=== PATIENT | female | born 1945 | race Caucasian/White ===

== ENCOUNTER → 2017-10-01 08:08 | Outpatient (CLI) | payer MEDICARE, SELFPAY ==
[2017-10-01 09:32] LABS: Absolute Lymphocyte Count 1.26 X10^3/ul (0.83-4.51); Absolute Neutrophil Count 3.3 X10^3/uL (2.0-7.7); Basophil# 0.05 X10^3/uL; Eosinophil# 0.18 X10^3/uL; Eosinophils% 3.5 % (0-5); Hematocrit 40.5 % (37-47); Lymphocyte # 1.26 X10^3/ul (4.0); Lymphocyte % 24.5 % (19-41); Mean Corp Hgb Conc 34.6 g/gl (32-36); Mean Corpuscular Hgb 32.4 pg (27.0-32.0); Mean Corpuscular Volume 93.8 fL (81-99); Mean Platelet Vol. 11.8 fl (6.2-12.0); Monocyte# 0.35 X10^3/uL; Monocyte% 6.8 % (0-10); Neutrophil % 64.2 % (47-70); Platelet Count 151 K/mm3 (150-450); RBC Distribution Width CV 12.7 % (11.6-14.6); RBC Distribution Width SD 42.8 fl (35.1-43.9); Red Blood Count 4.32 M/mm3 (4.2-5.4); White Blood Count 5.1 K/mm3 (4.4-11.0)
[2017-10-01 09:35] LABS: POSITIVE COUNT NO; POSITIVE DIFFERENTIAL NO; POSITIVE MORPHOLOGY NO
[2017-10-01 09:52] LABS: Hemoglobin A1c 9.1 % (4.2-6.3); Microalbumin,Random Urine 42.6 mg/L (NO RANGE EST.); Microalbumin:Creatinine Ratio 48.4 mg/g CRE (<30 mg/g CRE)
[2017-10-01 10:09] LABS: Cholesterol 166 mg/dL (200); High Density Lipoprotein 32 mg/dL; Thyroid Stim Hormone (TSH) 5.55 uIU/mL (0.358-3.74); Triglycerides 123 mg/dL; Very Low Density Lipoprotein 25 mg/dL (5-40)
== END ==
PROVIDERS: Family Provider Family Medicine; PCP Family Medicine; Visit Provider Family Medicine
DX: E11.65 Type 2 diabetes mellitus with hyperglycemia (principal); I10 Essential (primary) hypertension; K21.9 Gastro-esophageal reflux disease without esophagitis
CPT/HCPCS: 36415; 80061; 82043; 82570; 83036; 84443; 85025

== ENCOUNTER → 2017-11-12 10:34 | Outpatient (CLI) | payer MEDICARE, SELFPAY ==
[2017-11-12 13:02] LABS: Anion Gap 7 (5-15); BUN 15 mg/dL (7-18); Calcium,Total 8.9 mg/dL (8.5-10.1); Chloride 107 mmol/L (98-107); Creatinine, Serum 0.94 mg/dL (0.55-1.02); EST Glomerular Filtration Rate 62 mL/min (>60); Est Glom Filt Rate - Afr Amer 75 mL/min (>60); Free T3 2.7 pg/mL (2.18-3.98); Glucose 224 mg/dL (74-106); Potassium 4.2 mmol/L (3.5-5.1); Sodium Level 139 mmol/L (136-145); T4 Free Direct 0.99 ng/dL (0.76-1.46); Thyroid Stim Hormone (TSH) 3.36 uIU/mL (0.358-3.74)
[2017-11-13 18:51] LABS: Thyroid Peroxidase AB 16 IU/mL (0-34)
[2017-11-13 18:58] LABS: Thyroglobulin Antibody < 1.0 IU/mL (0.0-0.9)
== END ==
PROVIDERS: Family Provider Family Medicine; PCP Family Medicine; Visit Provider Family Medicine
DX: E03.9 Hypothyroidism, unspecified (principal); I10 Essential (primary) hypertension
CPT/HCPCS: 36415; 80048; 84439; 84443; 84481; 86376; 86800

== ENCOUNTER → 2018-07-01 | Outpatient (CLI) | payer MEDICARE, SELFPAY | END | disposition home or self-care (01) | LOC: BFHLAB 15:52 | PROVIDERS: Family Provider Family Medicine; PCP Family Medicine; Visit Provider Family Medicine | DX: N95.0 Postmenopausal bleeding (principal); Z12.4 Encounter for screening for malignant neoplasm of cervix | CPT/HCPCS: 88175; G0145 ==

== ENCOUNTER → 2018-07-12 | Outpatient (CLI) | payer MEDICARE, SELFPAY ==
--- NOTE | 2018-07-12 12:07 | US_ITS ---
STUDY: ULTRASOUND OF THE FEMALE PELVIS - COMPLETE REASON FOR EXAM: Female, 73 years old. PMB. LMP: Postmenopausal. TECHNIQUE: Transabdominal and transvaginal. TECHNICAL QUALITY: Adequate. COMPARISON: None. FINDINGS: The uterus is anteverted and is in a midline position. The uterus measures 6.0 x 4.6 x 2.9 cm. Normal uterine cervix. The endometrium measures 10.0 mm in thickness, and is . There is no demonstrated endometrial mass. There is a small fibroid measuring 0.8 x 0.8 x 0.7 cm. I.U.D. - The patient does not have an I.U.D. The right ovary is not visualized. The left ovary is visualized. The left ovary measures 2.2 x 2.8 x 1.4 cm. There is no left ovarian cyst or ovarian mass. There is no visualized left adnexal mass or complex lesion. There is normal arterial and normal venous vascularity. There is no fluid in the cul-de-sac. US/Transvaginal Non- IMPRESSION: 1. Mild thickening of the endometrial stripe measuring 10.0 mm. This is at least endometrial hyperplasia. 2. Small uterine fibroid measuring 0.8 x 0.8 x 0.7 cm. 3. Nonvisualization of the right ovary due to bowel gas. 4. Normal ultrasound of the left ovary. Electronically Signed: Xander Khan MD at 13:41 EDT , Service support ,
--- NOTE | 2018-07-12 12:07 | US_ITS ---
STUDY: ULTRASOUND OF THE FEMALE PELVIS - COMPLETE REASON FOR EXAM: Female, 73 years old. PMB. LMP: Postmenopausal. TECHNIQUE: Transabdominal and transvaginal. TECHNICAL QUALITY: Adequate. COMPARISON: None. FINDINGS: The uterus is anteverted and is in a midline position. The uterus measures 6.0 x 4.6 x 2.9 cm. Normal uterine cervix. The endometrium measures 10.0 mm in thickness, and is . There is no demonstrated endometrial mass. There is a small fibroid measuring 0.8 x 0.8 x 0.7 cm. I.U.D. - The patient does not have an I.U.D. The right ovary is not visualized. The left ovary is visualized. The left ovary measures 2.2 x 2.8 x 1.4 cm. There is no left ovarian cyst or ovarian mass. There is no visualized left adnexal mass or complex lesion. There is normal arterial and normal venous vascularity. There is no fluid in the cul-de-sac. US/Pelvic (Non ) IMPRESSION: 1. Mild thickening of the endometrial stripe measuring 10.0 mm. This is at least endometrial hyperplasia. 2. Small uterine fibroid measuring 0.8 x 0.8 x 0.7 cm. 3. Nonvisualization of the right ovary due to bowel gas. 4. Normal ultrasound of the left ovary. Electronically Signed: Xander Khan MD at 13:41 EDT , Service support ,
== END | disposition home or self-care (01) ==
LOC: OPUS 12:05
PROVIDERS: Family Provider Family Medicine; PCP Family Medicine; Referring Provider Family Medicine; Visit Provider Family Medicine
DX: N95.0 Postmenopausal bleeding (principal)
CPT/HCPCS: 76830; 76856

== ENCOUNTER 2018-07-28 11:00 | Outpatient (RCR) | payer MEDICARE, SELFPAY ==
--- NOTE | 2018-06-09 16:05 | HP.PTEVAL ---
Patient's Visit Information RAOUL ANGELES is a 73 year old F referred to Physical Therapy by Desiree Tapia MD with a diagnosis of LEFT LUMBAR RADICULOPATHY. Date of Evaluation: 06/09/18 Physical Therapist: Alysha Gonzalez, PT, Cert MDT - Visit Plan Frequency: 2-3x /Week Duration: 4-6 Weeks Plan: AQUATIC THERAPY FOR PAIN RELIEF, POSTURE CORRECTION/STRENGTHENING, INSTRUCTION IN APPROPRIATE BODY MECHANICS AND ACTIVITY MODIFICATIONS. DLS STARTING WITH A NEUTRAL SPINE PROGRESSING ROM TOLERATED. MIKE LE ROM, STRETCHING AND STRENGTHENING. HEP INSTRUCTION. *CORE STBILITY* - Subjective Findings: Work/Leisure: RETIRED. HOBBIES: SEWING. Disability: NO. Present symptoms: MIKE LOW BACK/HIP PAIN. INTERMITTENT LLE PAIN, NUMBNESS AND TINGLING TO THE FOOT. Present since: APRIL 20 2018. Pain Scale: WORST 5/10, LEAST 0/10. Currently: 02/18. Commenced as a result of: NO APPARENT REASON. PATIENT REPORTS SHE WAS IN [place] AND CAN NOT CONNECT IT TO ANYTHING. Symptoms at onset: LEFT HIP. Worse: LYING ON LEFT SIDE, ELEVATING LLE WITH PILLOW BETWEEN KNEES IN RIGHT SDLY, STANDING, WALKING, VACUUMING. Better: ? Disturbed sleep: NO. Previous history/Previous treatment: ABOUT A YEAR HAD A FLARE UP WHICH SHE RELATES TO SITTING ON BLEACHERS AT A [employer] GAME. NO BACK SURGERY. NO BACK INJECTIONS. NO PRIOR BACK PT AND NO CHIROPRACTIC TREATMENTS. Coughing/sneezing/straining: POSITIVE. Gait: SLOWER, MORE AFRAID OF FALLING AND DISTANCE LIMITED OVER THE LAST YEAR BUT ESPECIALLY SINCE APRIL 2018. Difficulty initiating urinatin: NO. Accidents: NO. Unexplained weight loss: NO. Imaging: NONE RECENT. 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 BOTH ANKLES ARE LOCKED. IDDM. HTN. Recent major surgery: NO. PLOF (Prior Level of Function): ABLE TO TOLERATE DOING MORE HOUSEWORK, STANDING AND WALKING. OTHER: PT ABOUT 3 YEARS AGO FOR LEG STRENGTHENING BUT SHE SAID THE THERAPY WAS SO MILD THAT SHE DOESN'T THINK IT STRENGTHENED HER LIKE SHE WANTED IT TO. STATES SHE DIDN'T WORK ON HER CORE WITH PAST THERAPY. CURRENTLY NO ORTHOTICS. - Objective Sitting/Standing Posture: POOR. SIGNIFICANT ATROPHY RIGHT LE COMPARED TO LEFT. Lordosis: NORMAL. Lateral shift: NO. Relevant shift: N/A. Active Correction of posture: WORSE. Other Observations: INDEP GAIT INTO PT WITHOUT ANY ASSISTIVE DEVICES AND WITHOUT LOB BUT DECREASED CADANCE. PATIENT HAS NO HEEL STRIKE ON RIGHT LE - WALKS ON THE BALL OF HER FOOT AND REPORTS SHE HAS DONE THIS ALL HER LIFE. INDEP TRANSFER FROM SIT TO WITHOUT UE ASSIST BEARING ALMOST ALL HER WEIGHT ON HER LLE (INVOLVED SIDE). Motor deficit: RIGHT LE WEAKNESS ESPECIALLY IN RIGHT ANKLE. LLE MMT: HIP 4-/5, KNEE 5/5, ANKLE 3-/5. PATIENT REPORTS SHE DOES NOT REALLY NOTICE ANY NEW WEAKNESS IN THE LEFT ANKLE AT THIS TIME BUT SHE DOES IN HER HIP. Sensory deficit: RIGHT LE DECREASED LIGHT TOUCH. ROM deficit: TIGHT MIKE HS'S AND MIKE ANKLE DYSFUNCTION RIGHT > LEFT. Reflexes: NT. Dural Signs: APPEARS TO BE POSITIVE MIKE LE'S. Lumbar mvmt loss: flex - NIL. ext - LELE - INCREASED LBP. R SG - MOD - INCREASES LBP. L SG - MIN - INCREASES LBP. Core strength: POOR. Palpation: NO ACUTE TENDERNESS WITH PALPATION OF THE THORACIC SPINE, LUMBAR SPINE, OR MIKE HIP/BUTTOCK REGIONS. - Goals Goal 1:: DECREASE C/O LOW BACK AND LLE SX'S Goal Time Frame: 4-6 Weeks Goal 2:: IMPROVE LIFTING, SITTING, STANDING, WALKING, SOCIAL LIFE, TRAVEL AND HOMEMAKING FUNCTION. Goal Time Frame: 4-6 Weeks Goal 3:: INSTRUCT IN PROPHYLAXIS Goal Time Frame: 4-6 Weeks - Rehabilitation Potential Rehabilitation Potential: Fair - Anticipated Interventions Patient/Client Instruction: Educate patient on: Condition, Plan of Care, Risk Factors, Benefits of Fitness Program For the Purpose of:: To improve self management Therapeutic Exercise to Include: Strength training, Body mechanics, Postural training, Flexibilty training, In an aquatic setting, Dynamic Lumbar Stabilization For the Purpose of:: To decrease pain, To increase ROM, To improve muscle performance and motor function, To increase tolerance to activity/condition/position, To improve ability of physical actions for home/community/work/leisure, To improve gait and locomotor functions Thank you for the opportunity to evaluate your patient. For Medicare and Medicare HMO plans, please review the plan of care and approve it. It will need to be FAXED BACK to us at [phone] for Medicare purposes. For Medicare only, by signing this I certify the plan of care. Please let me know if there are questions or concerns regarding this plan of care. Physician Signature: Date:
--- NOTE | 2018-07-08 13:18 | HP.PTREVAL ---
Desiree Tapia MD, It has been my pleasure to treat RAOUL ANGELES over the last 11 visits for LEFT LUMBAR RADICULOPATHY. Please see the progress note below for an update on the physical therapy plan of care! Subjective: PATIENT REPORTS THAT THE SCIATICA THAT SHE CAME HERE FOR IS 99% BETTER. SHE REPORTS SHE IS ALSO SEEING IMPROVEMENT IN HER CHRONIC WEAKNESS THAT SHE HAS BEEN WORKING ON OFF AND ON FOR YEARS. FOLLOW UP PENDING WITH DR. TAPIA AFTER US FOR SPOTTING NEXT WEEK AND SHE PLANS TO DISCUSS CONTINUING THERAPY FOR STRENGTHENING Objective/Function: NO SIGNIFICANT CHANGES SINCE INITIAL EVAL EXCEPT LEFT HIP IS STRONGER (4/5) WITHOUT PAIN AND LUMBAR ROM TESTING DOES NOT PROVOKE PAIN. THIS PATIENT IS A GOOD CANDIDATE TO TRY TO TRANSITION TO LAND TO CONTINUE PRE FOR CORE STABILITY AND LE STRENGTHEING TO HELP PREVENT SCIATICA REOCCURRANCE BUT IF NOT TOLERATED WELL COULD GO BACK TO THE POOL TO PROGRESS. LUMBAR OSWESTRY HAS IMRPOVED FROM 16 TO 10. Plan Plan: CONTINUE PT ATTEMPTING TO TRANSITION TO LAND BASED STRENGTHEING DESCRIBED ABOVE 2X'S A WEEK X 2 WEEKS THEN RE-CHECK BUT RETURN TO WATER IF NEEDED. Goals Goal 1:: DECREASE C/O LOW BACK AND LLE SX'S Goal Time Frame: 4-6 Weeks Goal Progress: Progressing Goal 2:: IMPROVE LIFTING, SITTING, STANDING, WALKING, SOCIAL LIFE, TRAVEL AND HOMEMAKING FUNCTION. Goal Time Frame: 4-6 Weeks Goal Progress: Progressing Goal 3:: INSTRUCT IN PROPHYLAXIS Goal Time Frame: 4-6 Weeks Goal Progress: Progressing Anticipated Interventions Patient/Client Instruction: Educate patient on: Condition, Plan of Care, Risk Factors, Benefits of Fitness Program For the Purpose of:: To improve self management Therapeutic Exercise to Include: Strength training, Body mechanics, Postural training, Flexibilty training, In an aquatic setting, Dynamic Lumbar Stabilization For the Purpose of:: To decrease pain, To increase ROM, To improve muscle performance and motor function, To increase tolerance to activity/condition/position, To improve ability of physical actions for home/community/work/leisure, To improve gait and locomotor functions Please do not hesitate to contact me at [phone] by phone or if you have questions or concerns regarding this new plan of care! Sincerely, Alysha Gonzalez, PT, Cert MDT
--- NOTE | 2018-07-28 11:27 | HP.PTDCSUM ---
HP - PT D/C Summary It has been my pleasure to treat RAOUL ANGELES under orders from Desiree Tapia MD, for the diagnosis of LEFT LUMBAR RADICULOPATHY for a total of 16 visit(s). Discharge Date: 07/28/18 Please see the following information for a summary of their discharge status. - Subjective Subjective: PATIENT REPORTS SHE FEELS SO GOOD NOW. STATES SHE IS STRONGER AND INDEP WITH HOME AND WATER EX PROGRAMS NOW. I HAVE NO PAIN AT ALL TODAY. IT IS A BIG DIFFERENCE. - Pain Lumbar Spine Pain Intensity (Out of 10): 0 - Overall Improvement % Improvement: 100 - Objective Objective/Function: ALL GOALS MET. UPON EXAM TODAY PATIENT DEMO'S BETTER GAIT WITH RIGHT HEEL CLOSER TO THE GROUND BUT STILL BEARING ALMOST ALL WEIGHT ON TOE. SHE DEMO'S INDEP SIT TO STAND WITHOUT UE ASSIST. Dural Signs: NEGATIVE MIKE LE'S. Lumbar mvmt loss: flex - NIL. ext - LELE. R SG - MOD. L SG - MIN. PATIENT DENIES PAIN WITH LUMBAR ROM TESTING. Core strength: FAIR - Goals Goal 1:: DECREASE C/O LOW BACK AND LLE SX'S Goal Progress: Progressing Goal 2:: IMPROVE LIFTING, SITTING, STANDING, WALKING, SOCIAL LIFE, TRAVEL AND HOMEMAKING FUNCTION. Goal Progress: Progressing Goal 3:: INSTRUCT IN PROPHYLAXIS Goal Progress: Progressing - Plan Plan: D/C TO INDEP EX. PATIENT IS AGREEABLE. - D/C Information If there are questions or concerns regarding this patient's physical therapy, please feel free to call me at [phone]. Thank you for the referral of this patient. Sincerely, Alysha Gonzalez, PT, Cert MDT
== END 2018-07-28 19:00 | disposition home or self-care (01) ==
LOC: PT 11:00
PROVIDERS: Family Provider Family Medicine; PCP Family Medicine; Visit Provider Family Medicine
DX: M54.16 Radiculopathy, lumbar region (principal)
CPT/HCPCS: 97110; 97113; 97116; 97162; 97530

== ENCOUNTER 2018-08-24 09:58 | Day surgery (SDC) | payer MEDICARE, SELFPAY ==
[2018-08-19 13:35] LABS: Hematocrit 42.2 % (37-47); Hemoglobin 14.5 g/dl (12.0-15.0); Mean Corp Hgb Conc 34.4 g/gl (32-36); Mean Corpuscular Hgb 32.4 pg (27.0-32.0); Mean Corpuscular Volume 94.4 fL (81-99); Mean Platelet Vol. 11.8 fl (6.2-12.0); Platelet Count 176 K/mm3 (150-450); RBC Distribution Width CV 12.8 % (11.6-14.6); RBC Distribution Width SD 43.8 fl (35.1-43.9); Red Blood Count 4.47 M/mm3 (4.2-5.4); White Blood Count 5.2 K/mm3 (4.4-11.0)
[2018-08-19 13:42] LABS: Scan Indicated on CBC? Y/N NO
--- NOTE | 2018-08-19 15:13 | PCM.HPOB.BLA ---
History and Physical Date of Admission: 08/24/18 Date of : 1945 HISTORY OF PRESENT ILLNESS: On 08/04/2018, Sandie Waggoner, a 73 year old female 2 0 0 0 2, presented for: -- GynProblem-New Pt -- Sandie is being seen for it auditor problem. Pt is new to facility. . Pt is postmenopausal for about [address] Carolina due to postmenopausal bleeding and thickened uterus. Pt had spotting around 2018 but has not had any bleeding since. Pt states she does have hemorrhoids but was bleeding vaginally. US was done at Dr. Carolina's office. Pt dx with hypertension, diabetes, arthritis, hx of kidney stones and polio at age 2 that has effected her legs. Medications and allergies are up to date. Pap and Mammograms done with PCP. AM As above. Here as referral for evaluation of postmenopausal bleeding. Related a few d history of mucousy appearing blood on toilet paper after no bleeding for more than 20 yrs. She has had a normal pap smear recently. She has not had any additional bleeding since that reported to Dr Tapia. She is diabetic, HTN, and has arthritis. Pelvic sono: 07/12/18 at [facility] Uterus 6.0 x 4.6 x 2.9 cm with a 10 mm endometrial stripe R ovary is not seen L ovary is WNL, 2.2 x 2.8 x 1.4 cm. No free fluid in cul-de-sac. EB ALLERGIES: Sulfa (Sulfonamide Antibiotics), Hives and/or rash MEDICATIONS HISTORY: Patient is also takin. amlodipine 5 mg tablet, daily 2. glipizide 5 mg tablet, bid 3. lisinopril 40 mg tablet, daily 4. metformin 500 mg tablet, bid REVIEW OF SYSTEMS: GENERAL - Denies fever, or chills SKIN - Denies skin changes EYES - Denies visual changes EARS - Denies difficulty hearing NOSE - Denies nasal congestion or bleeding MOUTH - Denies sore throat or difficulty swallowing NECK - Denies pain or swelling RESPIRATORY - Denies shortness of breath or wheezing CARDIOVASCULAR - Denies palpitations or chest pain GASTROINTESTINAL - Denies nausea, vomiting, diarrhea, constipation GENITOURINARY - Denies dysuria, frequency of urination, incontinence of urine MUSCULOSKELETAL - Denies joint or muscle pain NEUROLOGICAL - Denies localized numbness or weakness PSYCHIATRIC - Denies depression or anxiety ENDOCRINE - Denies heat or cold intolerance, weight loss or gain HEMATO-IMMUNOLOGIC - Denies excessive bleeding with cuts PAST HISTORY: Breast/Ovarian/Colon Cancers - Breast Cancer and daughter Infections - Chicken pox, Mumps, Measles and polio Illnesses - diabetes, hypertension, arthritis, paralysis, cardiac catheterization and kidney stones Accidents - None History of Abnormal PAPS - Never Hospitalizations - Childbirth, see surgery and long stay-medical prob. SURGICAL HISTORY: 1. tubal ligation 2. Heart Catheterization 1999 false positive stress test MENSTRUAL HISTORY: LMP Known?- Postmenopausal PAST PREGNANCIES: Total Pregnancies - 2; Full Term Pregnancies - 2; Premature - 0; Abortions, Induced - 0; Abortions, Spontaneous - 0; Ectopics - 0; Multiple Births - 0; Living Children - 2 FAMILY HISTORY: Father - Type 2 Diabetes; Father - Congen heart disease; Father - kidney disease; Mother - Type 2 Diabetes; Mother - Congenital heart disease; SOCIAL HISTORY: Alcohol Use - denies drinking Smoking - denies smoking Diet - balanced Diet Lifestyle - Exercise - regular Seat Belt Use - always Employer - Retired Illicit Drug Use - denies use of street drugs Sexual Activity - Spouse-Sig Other Name - Rahul Spouse-Sig Other Occupation - retired Control - Prior Tubal and postmenopausal PHYSICAL EXAMINATION BP- 138/70 Sitting, Right arm, regular cuff Weight- 150.00 lbs Height- 62.00 inch BMI:27.49 CONSTITUTIONAL - NAD, well nourished, and well developed HEENT - Normocephalic, PERRLA, EOMI NECK - no nuchal rigidity EXTREMITIES - No edema or calf tenderness NEUROLOGICAL - Cranial nerves II-XII grossly intact PSYCHIATRIC - A and O to time, place, person, mood and affect DETAILED PELVIC EXAM External Genital Vagina - non-tender without lesions and atrophic changes noted. Urethra/Urethral Meatus - non-tender Bladder - non-tender Vagina - pale pink, atrophic appearing. No lesions Cervix - normal appearance. Admits EMB Pipelle. (pap normal at PCP) Uterus - normal size and no tenderness ASSESSMENT: 1. Postmenopausal Bleeding 2. Endometrial Hyperplasia, Unspecified PLAN BY DIAGNOSIS: 1. Postmenopausal Bleeding Differential diagnosis reviewed : endometrial polyp, endometrial hyperplasia with / without atypia, endometrial cancer. Attempted EMB in ofc but very minimal tissue noted. Suspect endometrial polyp as the cause of bleeding and the ultrasound appearance. Plan hysteroscopy D and C and possible endometrial polypectomy in operating room under IV sedation as scheduled. Notify of time and date of the surgery. The visit was approximately 25 minutes in length with most of the time spent in discussion and counseling. 2. Endometrial Hyperplasia, Unspecified Thickened endometrial stripe of 1 cm in otherwise normal appearing , atrophic postmenopausal uterus Plan surgery for further evaluation.
[2018-08-24 10:15] VITALS: BP 136/76; PULSE 77; RESP 16; TEMP 37; O2SAT 100; BMI 26.9
[2018-08-24 10:55] LABS: Bedside Glucose 148 mg/dL (70-110)
--- NOTE | 2018-08-24 11:55 | EMB_PTH ---
PATIENT: RAOUL ANGELES LOC[place] [facility] [place][id number] AGE/SX: 73/F ROOM: RE08/24/[address]: Dr. Erinn Milton MD : 1945 BED: DIS: 08/24/2018 SPEC #: [id number] RECD: 08/24/18 13:48 STATUS: EDIS CYN #: [id number] VANESSA: 08/24/18 11:[address]: Erinn Milton DEPT: SURGICAL PATHOLOGY RECD BY: Blake Hughes ENTERED: 08/24/18 14:11 SP TYPE: ENDOM BX/C MINH DR: Dr. Desiree Tapia MD Tissues: Endometrium, NOS Procedures: Surgery Specimen Level IV HEADER OPERATION: Hysteroscopy, dilation and curettage PRE-OP DIAGNOSIS: Postmenopausal bleeding; endometrial hyperplasia TISSUE SUBMITTED: Endometrial curettings MICROSCOPIC DIAGNOSIS Endometrium, curettings: Polypoid fragments of simple cystic hyperplasia without atypia. AM:joanne 08/25/18 MICROSCOPIC DESCRIPTION Slides are reviewed. GROSS DESCRIPTION Received in fixative is one container labeled with the patient's name and designated endometrial curettings. The specimen consists of multiple irregular fragments of pink-carlson soft tissue that in aggregate measure 2.5 x 2 x 0.2 cm. The specimen is totally submitted in one cassette. / AM:joanne 08/24/18 TC:5 CPT: 10792
--- NOTE | 2018-08-24 12:27 | DCINST_ITS ---
Discharge Diet: No Restrictions Discharge Activity: Return to Normal Activity - Return to normal activity on 08/25/18 Rest on day of surgery. OK to drive in 24 hr after surgery, May Shower, May Take a Tub Bath May resume sexual activity in: No Restrictions Call your doctor if you observe: Fever of 101 or Higher, Uncontrolled pain Allergies/Adverse Reactions: Allergies Sulfa (Sulfonamide Antibiotics) Allergy (Verified 08/24/18 10:14) Hives adhesive tape Adverse Reaction (Verified 08/24/18 10:14) Rash Medications to take at Discharge Amlodipine Besylate [Norvasc] 5 mg PO QHS 08/18/18 Aspirin [Aspir 81] 81 mg PO QODAY 08/18/18 Glipizide 5 mg PO BID 08/18/18 Insulin Glargine [Lantus (BKC)] 40 units SUBCUT BID 08/18/18 Insulin Lispro [Humalog KwikPen] 10 unit SQ 1800 08/18/18 Lisinopril 40 mg PO QHS 08/18/18 Metformin HCl 500 mg PO BID 08/18/18 Primary Care Physician: Desiree Tapia MD [Primary Care Provider] - Test Results: Test results from this visit will be discussed in further detail at your follow- up appointment, if applicable. Please Follow Up With: Erinn Milton MD - [phone] When: 2 wk for postop check up. Proposed Discharge Date: 08/24/18
[2018-08-24 12:36] VITALS: BP 135/57; BP 136/76; PULSE 77; RESP 14; TEMP 36.5; O2SAT 97
[2018-08-24 12:42] VITALS: BP 136/76; BP 148/65; PULSE 74; RESP 14; O2SAT 97
[2018-08-24 12:47] VITALS: BP 136/76; BP 148/62; PULSE 73; RESP 16; O2SAT 98
[2018-08-24 12:48] VITALS: BP 136/76; BP 158/65; PULSE 70; RESP 14; TEMP 36.6; O2SAT 97
[2018-08-24 14:00] VITALS: BP 136/76
--- NOTE | 2018-08-24 19:11 | OP.PCM_ITS ---
Report of Operation Date of Procedure: 08/24/18 Pre-Operative Diagnosis: postmenopausal bleeding, thickened endometrial stripe on ultrasound Post-Operative Diagnosis: same Surgery/Procedure Performed:: hysteroscopy, dilation and curettage, endometrial polypectomy Description of Surgical Findings:: Uterus sounds to 8 cm. Cervix stenotic but easily dilated. Endometrial cavity appears atrophic with benign appearing superficial blood vessels. Both ostia were visualized. There was a small endometrial polyp noted and removed. Scant uterine curettings were withdrawn and set aside. Type of Anesthesia:: Local MAC Anesthesiologist: Emanuel Hinton MD Specimen's removed: uterine curettings, possible endometrial polyp Drains: alex hendricks prior to case Estimated Blood Loss (mL): minimal Fluids Replaced: LR Description of Procedure: After the R,B,Alternatives of the procedure were reviewed with the patient and her , informed consent was obtained. The patient was taken to the operating room with an IV running and placed in dorsal supine position of the operating table. She was given MAC IV sedation and repositioned to the dorsal lithotomy position and prepped and draped in the usual sterile fashion. A graves speculum was placed into the vagina and the cervix was brought into view. The cervix was instilled with 10 cc of 1% lidocaine as a paracervical block using a 20 G spinal needle. A single toothed tenaculum was applied to the anteri or lip of the cervix. The cervix was then gently probed and sequentially dilated to allow admission of the hysteroscope into the endometrial cavity. The hysteroscopy was performed with findings noted as above. There was a small endometrial polyp noted. A polypectomy and sharp curettage was performed and two pieces of tissue were withdrawn (polyp) and set aside. Very minimal curettings were withdrawn . The tissue was set aside for later pathology review. Excellent hemostasis was noted. The single toothed tenaculum was removed from the cervix and a RayTec was used to remove any remaining tissue and blood from the upper vagina and cervix. The procedure was terminated. The speculum was removed. The patient was returned to dorsal supine position and awakened from IV sedation and transferred to her recovery room bed in stable condition after tolerating the procedure well. Sponge, lap, needle and instrument counts were correct x two. medications given intraoperatively included 10 cc of 1% lidocaine without epinephrine instilled as a paracervical block. Toradol 15 mg IV times one was given. For a complete listing of the medications given intraoperatively, see the anesthesia record. - Complications none - Admit VTE Documentation VTE Present on Admission: No VTE Mechan Device Prophylaxis: SCD's VTE Pharm Prophylaxis ordered?: No
== END 2018-08-24 14:10 | disposition home or self-care (01) ==
LOC: SDC 09:59 → AC 09:59
PROVIDERS: Family Provider Family Medicine; PCP Family Medicine; Referring Provider Obstetrics & Gynecology; Visit Provider Obstetrics & Gynecology
PROC: 0UDB8ZZ Extraction of Endometrium, Via Natural or Artificial Opening Endoscopic (ICD-10-PCS; CPT 58558; principal; 2018-08-24 11:45)
DX: N85.01 Benign endometrial hyperplasia (principal); N95.0 Postmenopausal bleeding; Z86.12 Personal history of poliomyelitis; M19.90 Unspecified osteoarthritis, unspecified site; E11.9 Type 2 diabetes mellitus without complications; I10 Essential (primary) hypertension; Z79.899 Other long term (current) drug therapy; Z79.4 Long term (current) use of insulin; Z79.82 Long term (current) use of aspirin
CPT/HCPCS: 58558; 36415; 82962; 85027; 88305; J7120; J2405

== ENCOUNTER → 2018-10-13 | Outpatient (CLI) | payer MEDICARE, SELFPAY ==
[2018-10-13 12:35] LABS: Absolute Lymphocyte Count 0.88 X10^3/uL (0.83-4.51); Absolute Neutrophil Count 2.5 X10^3/uL (2.0-7.7); Basophil# 0.04 X10^3/uL; Eosinophil# 0.11 X10^3/uL; Eosinophils% 2.9 % (0-5); Hematocrit 43.6 % (37-47); Hemoglobin 14.2 g/dL (12.0-15.0); Lymphocyte # 0.88 X10^3/ul (4.0); Mean Corp Hgb Conc 32.6 g/dL (32-36); Mean Corpuscular Hgb 31.3 pg (27.0-32.0); Mean Platelet Vol. 11.8 fl (6.2-12.0); Monocyte# 0.31 X10^3/uL; Monocyte% 8.1 % (0-10); NRBC Flagged by Analyzer 0 % (0-5); Neutrophil # 2.46 X10^3/uL (2.7-7.7); Neutrophil % 64.5 % (47-70); Platelet Count 139 K/mm3 (150-450); RBC Distribution Width CV 12.9 % (11.6-14.6); RBC Distribution Width SD 44.9 fl (35.1-43.9); Red Blood Count 4.54 M/mm3 (4.2-5.4); White Blood Count 3.8 K/mm3 (4.4-11.0)
[2018-10-13 13:01] LABS: Vitamin B12 734 pg/mL (211-911)
[2018-10-13 13:08] LABS: ALB/GLOB Ratio 0.8 RATIO (0.9-2.4); AST(SGOT) 39 U/L (15-37); Alanine Aminotransfer ALT/SGPT 45 U/L (13-56); Albumin, Serum 3.6 g/dL (3.2-5.0); Alkaline Phosphatase 105 U/L (45-117); Anion Gap 3 (5-15); BUN 15 mg/dL (7-18); BUN/Creat Ratio 15.3 RATIO (10-20); Calcium,Total 8.9 mg/dL (8.5-10.1); Chloride 108 mmol/L (98-107); Cholesterol 177 mg/dL (200); Creatinine, Serum 0.98 mg/dL (0.55-1.02); EST Glomerular Filtration Rate 59 mL/min (>60); Est Glom Filt Rate - Afr Amer 71 mL/min (>60); Globulin 4.6 g/dL (2.2-4.2); Glucose 120 mg/dL (74-106); High Density Lipoprotein 40 mg/dL; Potassium 4.4 mmol/L (3.5-5.1); Protein, Total 8.2 g/dL (6.4-8.2); Sodium Level 140 mmol/L (136-145); Triglycerides 107 mg/dL; Very Low Density Lipoprotein 21 mg/dL (5-40)
[2018-10-13 13:18] LABS: Microalbumin,Random Urine 45.8 mg/L (NO RANGE EST.); Microalbumin:Creatinine Ratio 54.3 mg/g CRE (<30 mg/g CRE)
== END | disposition home or self-care (01) ==
LOC: LAB.FUTURE 10:05
PROVIDERS: Family Provider Family Medicine; PCP Family Medicine; Visit Provider Family Medicine
DX: E11.65 Type 2 diabetes mellitus with hyperglycemia (principal); I10 Essential (primary) hypertension; R53.83 Other fatigue
CPT/HCPCS: 36415; 80053; 80061; 82043; 82570; 82607; 85025

== ENCOUNTER → 2019-08-01 08:59 | Outpatient (CLI) | payer MEDICARE, SELFPAY ==
--- NOTE | 2019-08-01 09:04 | BI_ITS ---
MAMMOGRAPHY - BILATERAL DIAGNOSTIC REASON FOR EXAM: Female, 74 years old. Routine screening PERTINENT HISTORY: NO FM HX , LT AXILLARY SWELLING /SORENESS X 1 MTH TECHNIQUE: Digital examination. Mediolateral oblique (MLO) and craniocaudad (CC) views of both breasts were obtained. CAD: CAD was performed on this study. COMPARISON: No comparison mammograms available at this time. If any prior films become available, an addendum to this report can be generated. FINDINGS: Breast Composition: The breasts are heterogeneously dense, which may obscure small masses. There are no dominant masses or suspicious calcifications. Stable scattered punctate calcifications. No other significant abnormalities are identified. BI/DIAG MAMM W/CAD, BILAT IMPRESSION: Negative diagnostic mammogram. Yearly followup recommended. ASSESSMENT CATEGORY: BIRADS Category 2: Benign. A letter regarding these results will be sent to the patient by the facility within 30 days. FOLLOW UP RECOMMENDATION: Yearly follow up mammogram recommended. (A) Approximately 10% of breast cancers are not detected by mammography. A normal mammogram should not delay biopsy of a clinically suspicious abnormality. Electronically Signed: Rudolph Fowler MD at 12:06 EDT , Service support ,
--- NOTE | 2019-08-01 09:04 | US_ITS ---
STUDY: SUPERFICIAL ULTRASOUND - PAIN REASON FOR EXAM: Female, 74 years old. LT AXILLARY SWELLING AND PAIN TECHNIQUE: A superficial ultrasound was performed with real-time and static sparrow-scale imaging. COMPARISON: None. FINDINGS: Sonographic evaluation of the left axilla shows a well-defined hypoechoic nodule measuring 1.7 x 1.2 x 0.6 cm with the sonographic characteristics of a lymph node. There is no sonographic evidence of suspicious shadowing lesion architectural distortion. US/Ext Non Vasc Limited/Soft Tiss IMPRESSION: Left axillary lymph node, likely physiologic Electronically Signed: Rudolph Fowler MD at 11:12 EDT , Service support ,
== END ==
PROVIDERS: PCP Family Medicine; Referring Provider Family Medicine; Visit Provider Family Medicine
DX: R22.32 Localized swelling, mass and lump, left upper limb (principal); N64.4 Mastodynia
CPT/HCPCS: 76882; 77062; 77066; G0279

== ENCOUNTER → 2019-10-21 10:18 | Outpatient (CLI) | payer MEDICARE, SELFPAY ==
[2019-10-21 12:58] LABS: Absolute Lymphocyte Count 0.98 X10^3/uL (0.83-4.51); Absolute Neutrophil Count 2.7 X10^3/uL (2.0-7.7); Basophil# 0.04 X10^3/uL; Eosinophils% 2.4 % (0-5); Hematocrit 42.3 % (37-47); Hemoglobin 14.3 g/dL (12.0-15.0); Lymphocyte # 0.98 X10^3/ul (4.0); Lymphocyte % 23.3 % (19-41); Mean Corp Hgb Conc 33.8 g/dL (32-36); Mean Corpuscular Hgb 32.3 pg (27.0-32.0); Mean Corpuscular Volume 95.5 fL (81-99); Mean Platelet Vol. 11.7 fl (6.2-12.0); Monocyte# 0.37 X10^3/uL; Monocyte% 8.8 % (0-10); NRBC Flagged by Analyzer 0 % (0-5); Platelet Count 138 K/mm3 (150-450); RBC Distribution Width CV 12.6 % (11.6-14.6); RBC Distribution Width SD 43.8 fl (35.1-43.9); Red Blood Count 4.43 M/mm3 (4.2-5.4); White Blood Count 4.2 K/mm3 (4.4-11.0)
[2019-10-21 13:18] LABS: ALB/GLOB Ratio 0.8 RATIO (0.9-2.4); AST(SGOT) 40 U/L (15-37); Alanine Aminotransfer ALT/SGPT 40 U/L (13-56); Albumin, Serum 3.6 g/dL (3.2-5.0); Alkaline Phosphatase 90 U/L (45-117); Anion Gap 7 (5-15); BUN 13 mg/dL (7-18); BUN/Creat Ratio 13.7 RATIO (10-20); Calcium,Total 8.9 mg/dL (8.5-10.1); Chloride 106 mmol/L (98-107); Cholesterol 185 mg/dL (200); Creatinine, Serum 0.95 mg/dL (0.55-1.02); EST Glomerular Filtration Rate 61 mL/min (>60); Est Glom Filt Rate - Afr Amer 74 mL/min (>60); Globulin 4.5 g/dL (2.2-4.2); Glucose 101 mg/dL (74-106); High Density Lipoprotein 38 mg/dL; Potassium 4.1 mmol/L (3.5-5.1); Protein, Total 8.1 g/dL (6.4-8.2); Sodium Level 140 mmol/L (136-145); Triglycerides 102 mg/dL; Very Low Density Lipoprotein 20 mg/dL (5-40)
[2019-10-21 13:26] LABS: Microalbumin:Creatinine Ratio 156.9 mg/g CRE (<30 mg/g CRE)
== END ==
PROVIDERS: PCP Family Medicine; Visit Provider Family Medicine
DX: E11.65 Type 2 diabetes mellitus with hyperglycemia (principal); I10 Essential (primary) hypertension; K21.9 Gastro-esophageal reflux disease without esophagitis
CPT/HCPCS: 36415; 80053; 80061; 82043; 82570; 85025

== ENCOUNTER 2020-04-19 12:00 | Outpatient (RCR) | payer MEDICARE, SELFPAY ==
[2020-04-19] MEDS: COVID-19 VACC, MRNA(PFIZER)/PF 30 MCG/0.3 ML SYRINGE IM (10:14)
[2020-05-10] MEDS: COVID-19 VACC, MRNA(PFIZER)/PF 30 MCG/0.3 ML SYRINGE IM (10:06)
== END 2020-07-17 23:59 ==
LOC: IMMUN 12:00
PROVIDERS: PCP Family Medicine; Visit Provider Family Medicine
DX: Z23 Encounter for immunization (principal)
CPT/HCPCS: 0001A; 0002A; 91300

== ENCOUNTER 2021-09-09 11:20 | Observation (INO) | payer MEDICARE, SELFPAY ==
[2021-09-09] VITALS (9 sets, daily range): BP systolic 156–186; BP diastolic 48–82; PULSE 79–93; RESP 14–20; TEMP 36.6–37.2; O2SAT 95–100; BMI 27.1; BMI 27.2; BMI 27.8
--- NOTE | 2021-09-09 | MRI_ITS ---
We are attempting to reach an attending provider to discuss findings. An addendum with communication details will be sent when the communication is complete. EXAM: MR HEAD WITHOUT INTRAVENOUS CONTRAST CLINICAL INDICATION: ataxia TECHNIQUE: Multiplanar and multisequence MR images of the brain were obtained without intravenous contrast. This report was created using [employer] report generation technology. 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 Chronic involutional changes of the brain. No intra- or extra-axial hemorrhage. No intracranial mass or mass effect. Posterior fossa structures are unremarkable. Ventricles are appropriate for age. No hydrocephalus. Basal cisterns are patent. SELLA: Unremarkable. Normal sella turcica, pituitary gland, infundibular stalk, optic chiasm and hypothalamus. AUDITORY SYSTEM: Unremarkable. The internal auditory canals are patent. BONES/JOINTS: Unremarkable. No discrete lytic or blastic abnormalities. SINUSES: Unremarkable as visualized. Clear. MASTOID AIR CELLS: Unremarkable as visualized. Clear. ORBITS: Unremarkable as visualized. Both globes, extraocular muscles, optic nerves and retrobulbar fat appear unremarkable. VASCULATURE: Unremarkable as visualized. Normal flow voids in the major intracranial circulation. MRI/Brain without Contrast IMPRESSION: 1. 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 2. Chronic involutional changes of the brain. Critical finding called and case discussed. Electronically Signed: Clement Zapata MD at 19:38 EDT ,
--- NOTE | 2021-09-09 11:46 | EKG12_ITS ---
Test Reason : neuro Blood Pressure : / mmHG Vent. Rate : 086 BPM Atrial Rate : 086 BPM P-R Int : 178 ms QRS Dur : 102 ms QT Int : 384 ms P-R-T Axes : 034 -54 068 degrees QTc Int : 459 ms Normal sinus rhythm Left anterior fascicular block Left ventricular hypertrophy with repolarization abnormality ( R in aVL , [place] product , Romhilt-E stes ) Abnormal ECG Confirmed by WILBER ANDERSON, CIERRA ([id number]), web content editor PATY KAY ([id number]) on 09/10/2021 1:10:13 PM Referred By: Segundo Confirmed By:CIERRA MERINO MD
--- NOTE | 2021-09-09 11:46 | RAD_ITS ---
EXAM: XR CHEST, 1 VIEW CLINICAL INDICATION: weakness TECHNIQUE: Frontal view of the chest. This report was created using [employer] report generation technology. COMPARISON: None. FINDINGS: LUNGS AND PLEURAL SPACES: Normal. No consolidation or edema. No pneumothorax. No effusion. HEART: Normal heart size. MEDIASTINUM: Central airways and mediastinal contour are unremarkable. BONES/JOINTS: Normal. SOFT TISSUES: Normal. RAD/Chest 1 View (Portable) IMPRESSION: No acute cardiopulmonary disease. Electronically Signed: Mihir Flores MD at 12:54 EDT ,
--- NOTE | 2021-09-09 11:46 | CT_ITS ---
EXAM: CT HEAD WITHOUT INTRAVENOUS CONTRAST CLINICAL INDICATION: ataxia TECHNIQUE: Multiple axial images were obtained of the head without intravenous contrast. This CT exam was performed using one or more of the following dose reduction techniques: automated exposure control, adjustment of the mA and/or kV according to patient size, and/or use of iterative reconstruction technique. This report was created using [employer] report generation technology. COMPARISON: None. FINDINGS: BRAIN AND EXTRA-AXIAL SPACES: Areas of diminished white matter density noted within both cerebral hemispheres suggestive of chronic microvascular change. Prominence of the cortical sulci and ventricles consistent with volume loss change. No intra- or extra-axial hemorrhage. No evidence of acute infarct. No intracranial mass or mass effect. There is preservation of the sparrow/white matter interface. Posterior fossa structures are unremarkable. Basal cisterns are patent. BONES/JOINTS: Normal. No discrete lytic or blastic abnormalities. SINUSES: Unremarkable as visualized. Clear. MASTOID AIR CELLS: Normal. Clear. ORBITS: Visualized globes, extraocular muscles, optic nerves and retrobulbar fat appear unremarkable. CT/Brain/Head without Contrast IMPRESSION: 1. No acute intracranial abnormality. 2. Senescent changes. Electronically Signed: Mihir Flores MD at 13:29 EDT ,
--- NOTE | 2021-09-09 11:49 | ED.VIS.STROK ---
HPI History of Present Illness Chief Complaint: Neuro S/Sx Narrative Narrative: Patient presents with 4-day history of ataxia and feeling off balance. This started relatively suddenly while visiting a rental property. She has no vision changes. She has no confusion. No weakness or sensory deficits. No chest pain or shortness of breath. [facility] Medical History Diabetes mellitus History of poliomyelitis HTN (hypertension) Home Medications amlodipine 5 mg tablet 5 mg PO QHS htn 08/18/18 [History Last Taken Unknown] aspirin 81 mg tablet,delayed release 81 mg PO QODAY heart health 08/18/18 [History Last Taken Unknown] glipizide 5 mg tablet 5 mg PO BID diabetes 08/18/18 [History Last Taken Unknown] insulin glargine 100 unit/mL (3 mL) subcutaneous pen 40 units subcut BID diabetes 08/18/18 [History Last Taken Unknown] insulin lispro 100 unit/mL subcutaneous pen 10 unit SQ 1800 diabetes 08/18/18 [History Last Taken Unknown] lisinopril 40 mg tablet 40 mg PO QHS htn 08/18/18 [History Last Taken Unknown] metformin 500 mg tablet 500 mg PO BID diabetes 08/18/18 [History Last Taken Unknown] Allergy/AdvReac Type Severity Reaction Status Date / Time Sulfa (Sulfonamide Allergy Hives Verified 09/09/21 11:22 Antibiotics) adhesive tape AdvReac Rash Verified 09/09/21 11:22 Social History Smoking Status: Never smoker ROS ROS ED ROS Narrative Past medical history: Reviewed, diabetes, hypertension Medications: Reviewed Social history: Noncontributory Review of systems: All systems negative except as indicated General: No fever Eyes: No visual changes ENT: No upper airway congestion, normal voice Neck: No neck pain Cardiovascular: No chest pain Respiratory: No shortness of breath or cough Gastrointestinal: No abdominal pain, nausea vomiting or diarrhea Genitourinary: No dysuria Musculoskeletal: Denies myalgias no difficulty with ambulation Skin: No rash Neurological: As in HPI Psych: No recent behavioral changes Hematologic: No easy bleeding or easy bruising EXAM Physical Exam Narrative Exam Narrative: Physical exam General: Well nourished, Well developed, No Acute Distress Head: Normocephalic, Atraumatic Eyes: Conjunctiva not pale ENT: Moist mucous membranes Neck: Supple, Nontender, No lymphadenopathy Cardiovascular: Regular rate, Regular rhythm Respiratory: No distress, CTA bilaterally Abdomen: Soft, Nontender, Nondistended Back: Nontender, Normal Inspection. Negative for: CVA tenderness Extremities: Nontender, No edema Skin: Normal color, No rash Neurological: Alert, Normal Strength, Normal Sensation. She has cerebellar dysfunction, bilateral juhcym-ea-kmwt is abnormal, left-sided vaue-uc-gnfo is abnormal, she has a very positive Romberg test. Psychological: Normal affect Const Vital Signs: 09/09/21 11:21 09/09/21 13:21 Temperature 98.4 F Temperature Source Temporal Pulse Rate 93 79 Respiratory Rate 14 18 Blood Pressure 156/48 H Blood Pressure Mean 84 Pulse Ox 100 96 Oxygen Delivery Method Room Air Room Air STROKE Vital Signs/Narrative: Vital Signs Temp Pulse Resp BP Pulse Ox O2 Del Method 09/09/21 13:21 79 18 156/48 H 96 Room Air 09/09/21 11:21 98.4 F 93 14 100 Room Air NIHSS Initial: 1a Level of Consciousness: 0 1b LOC Questions (Score 2 if aphasic/stupor): 0 1c LOC Commands (Only score 1st attempt): 0 2 Best Gaze (If aphasic, use reflexive mvmts.): 0 3 Visual: 0 4 Facial Palsy: 0 5 Motor Arm Right (UN = amputation/fusion): 0 5 Motor Arm Left: 0 6 Motor Leg Right: 0 6 Motor Leg Left: 0 7 Limb ataxia (Only + if out of proportion): 2 8 Sensory (Aphasia/stupor=0 or 1, coma=2): 0 9 Best Language: 0 10 Dysarthria (mute, coma=2, intubated=UN): 0 11 Extinction and Inattention (only scored if +): 0 Total Score: 2 MDM MDM MDM Narrative Medical decision making narrative: Patient's initial work-up is unremarkable. She has a normal CT head although I believe she will need an MRI to rule out a stroke. She will be admitted to the hospital for this. She has ataxia that is unexplained thus I believe she needs an inpatient neurological work-up Lab Data Labs: Laboratory Results - last 24 hr 08/01/22 08/01/22 08/01/22 12:00 12:00 12:00 WBC 4.0 L RBC 4.41 Hgb 14.2 Hct 41.0 MCV 93.0 MCH 32.2 H MCHC 34.6 RDW Std Deviation 44.1 H RDW Coeff of Lilian 13.0 Plt Count 128 L MPV 11.1 Immature Gran % (Auto) 0.800 Neut % (Auto) 71.7 H Lymph % (Auto) 18.5 L [place] % (Auto) 6.5 Eos % (Auto) 1.5 Baso % (Auto) 1.0 Absolute Neuts (auto) 2.9 Absolute Lymphs (auto) 0.74 L Nucleated RBC % 0 PT 14.7 INR 1.2 Sodium 139 Potassium 3.9 Chloride 106 Carbon Dioxide 24.0 Anion Gap 9 BUN 14 Creatinine 0.96 Estim Creat Clear Calc 36.44 Est GFR (MDRD) Af Amer 72 Est GFR (MDRD) Non-Af 60 BUN/Creatinine Ratio 14.6 Glucose 254 H Calcium 9.0 Total Bilirubin 0.90 AST 37 ALT 40 Alkaline Phosphatase 100 Troponin I High Sens 7 Total Protein 7.9 Albumin 3.3 Globulin 4.6 H Albumin/Globulin Ratio 0.7 L Radiography Diagnostic Testing: Clinical Impression(s) from Imaging Studies Brain CT 09/09/21 11:46 IMPRESSION: 1. No acute intracranial abnormality. 2. Senescent changes. Electronically Signed: Mihir Flores MD at 13:29 EDT , Chest X-Ray 09/09/21 11:46 IMPRESSION: No acute cardiopulmonary disease. Electronically Signed: Mihir Flores MD at 12:54 EDT , Discharge Plan Triage Chief Complaint: Neuro S/Sx ED Provider: Kodak Duckworth Dx/Rx/DC Orders Clinical Impression: Ataxia, Disequilibrium, Weakness Prescriptions: No Action metformin 500 MG tablet 500 mg PO BID amlodipine 5 MG tablet 5 mg PO QHS aspirin 81 MG tablet,delayed release (DR/EC) 81 mg PO QODAY Label Comments: follow instructions about stopping lisinopril 40 MG tablet 40 mg PO QHS glipizide 5 MG tablet 5 mg PO BID insulin lispro 100 UNIT/ML insulin pen 10 unit SQ 1800 Label Comments: as directed insulin glargine 100 UNITS/ML insulin pen 40 units subcut BID Label Comments: as directed Primary Care Provider: Desiree Tapia Referrals: Desiree Tapia MD [Primary Care Provider] - Disposition Disposition: Acute Care Hospital [facility]
[2021-09-09 12:13] LABS: Absolute Lymphocyte Count 0.74 X10^3/uL (0.83-4.51); Absolute Neutrophil Count 2.9 X10^3/uL (2.0-7.7); Basophil# 0.04 X10^3/uL; Eosinophil# 0.06 X10^3/uL; Eosinophils% 1.5 % (0-5); Hemoglobin 14.2 g/dL (12.0-15.0); Lymphocyte # 0.74 X10^3/ul (0.83-4.51); Lymphocyte % 18.5 % (19-41); Mean Corp Hgb Conc 34.6 g/dL (32-36); Mean Corpuscular Hgb 32.2 pg (27.0-32.0); Mean Platelet Vol. 11.1 fl (6.2-12.0); Monocyte# 0.26 X10^3/uL; Monocyte% 6.5 % (0-10); NRBC Flagged by Analyzer 0 % (0-5); Neutrophil # 2.86 X10^3/uL (2.7-7.7); Neutrophil % 71.7 % (47-70); Platelet Count 128 K/mm3 (150-450); RBC Distribution Width SD 44.1 fl (35.1-43.9); Red Blood Count 4.41 M/mm3 (4.2-5.4)
[2021-09-09 12:21] LABS: International Normalized Ratio 1.2; Prothrombin Time (Protime)PT. 14.7 SECONDS (11.7-14.9)
[2021-09-09 12:31] LABS: ALB/GLOB Ratio 0.7 RATIO (0.9-2.4); AST(SGOT) 37 U/L (15-37); Alanine Aminotransfer ALT/SGPT 40 U/L (13-56); Albumin, Serum 3.3 g/dL (3.2-5.0); Alkaline Phosphatase 100 U/L (45-117); Anion Gap 9 (5-15); BUN 14 mg/dL (7-18); BUN/Creat Ratio 14.6 RATIO (10-20); Chloride 106 mmol/L (98-107); Creatinine, Serum 0.96 mg/dL (0.55-1.02); EST Glomerular Filtration Rate 60 mL/min (>60); Est Glom Filt Rate - Afr Amer 72 mL/min (>60); Estimated Creatinine Clearance 36.44 ml/min; Globulin 4.6 g/dL (2.2-4.2); Glucose 254 mg/dL (74-106); Potassium 3.9 mmol/L (3.5-5.1); Protein, Total 7.9 g/dL (6.4-8.2); Sodium Level 139 mmol/L (136-145); Troponin-I HS 7 pg/mL (3.0-54.0)
--- NOTE | 2021-09-09 14:13 | PCM.HP.STD ---
HPI - General General Date of Admission: 09/09/21 Date of Service: 09/09/21 Chief Complaint: ataxia HPI Narrative RAOUL ANGELES, is a 76 F who presents with ataxia. Patient feels that she is just swimming and could be stuck to the wall. Patient has a history of postpolio syndrome and has issues with ataxia in her lower extremities and occasionally getting stuck. This is different than that. This past , patient was at a friend's rental property and the symptoms began. They have persisted and she sought attention in the emergency room. Work-up in the emergency room was unremarkable but given that she was having ongoing ataxia of the hospital service was contacted for admission. [facility] Medical History (Updated 09/09/21 @ 14:[address] Arya Bartlett DO) Diabetes mellitus History of poliomyelitis HTN (hypertension) Post-polio syndrome Rosacea Home Medications amlodipine 5 mg tablet 5 mg PO QHS htn 08/18/18 [History Last Taken 09/08/21] [facility] [History Last Taken 09/07/21] glipizide 5 mg tablet 5 mg PO BID diabetes 08/18/18 [History Last Taken 09/09/21] insulin glargine 100 unit/mL (3 mL) subcutaneous pen 41 units subcut DAILY diabetes 08/18/18 [History Last Taken 09/09/21] insulin lispro 100 unit/mL subcutaneous pen 10 unit SQ 1800 diabetes 08/18/18 [History Last Taken 09/08/21] lisinopril 40 mg tablet 40 mg PO QHS htn 08/18/18 [History Last Taken 09/08/21] metformin 500 mg tablet 1,000 mg PO BID diabetes 08/18/18 [History Last Taken 09/09/21] insulin glargine 100 unit/mL (3 mL) subcutaneous pen (Lantus Solostar U-100 Insulin) 38 unit subcut QHS dm 09/09/21 [History Last Taken 09/09/21] Allergy/AdvReac Type Severity Reaction Status Date / Time Sulfa (Sulfonamide Allergy Hives Verified 09/09/21 11:22 Antibiotics) adhesive tape AdvReac Rash Verified 09/09/21 11:22 Family History (Updated 09/09/21 @ 14:[address] Arya Bartlett, ) Other CVA (cerebral vascular accident) Social History (Updated 09/09/21 @ 14:[address] Arya Bartlett DO) Smoking Status: Never smoker alcohol intake: never ROS ROS Narrative Denies any visual changes. Not dropping things out of the ordinary. All review of systems were negative except as mentioned above in the history of present illness and the other review of systems. Vital Signs Vital Signs Vital Signs: 09/09/21 11:21 09/09/21 13:21 09/09/21 13:43 Temperature 36.9 C 36.6 C Temperature Source Temporal Temporal Pulse Rate 93 79 89 Respiratory Rate 14 18 20 H Blood Pressure 156/48 H 156/48 H Blood Pressure Mean 84 84 Pulse Ox 100 96 96 Oxygen Delivery Method Room Air Room Air Room Air Weight Weight: 67.132 kg Body Mass Index (BMI) 27.2 Physical Exam Const alert, oriented x3, no apparent distress and average body habitus General Appearance: cooperative HEENT normocephalic and head/scalp atraumatic Eyes Eyes Narrative: Does have very fine nystagmus that did not appear to fatigue on the left side. Extraocular muscles appear to be intact. Patient did have diplopia with left lateral gaze. Neck no lymphadenopathy and no carotid bruits Resp normal respiratory effort, no retractions, no use of accessory muscles and clear to auscultation bilaterally Cardio regular rate, regular rhythm, S1 normal heart sound and S2 normal heart sound GI normal to inspection, nondistended, normoactive bowel sounds, soft to palpation, non-tender and non-distended Extremity normal to inspection and full ROM Skin Skin Narrative: Macular rash encompassing the patient's forehead and cheeks. There is no sparing of the nasolabial fold. Neuro oriented x3, CN's II-XII intact bilaterally, moves all extremities and no focal motor deficits Neuro Narrative: Ataxia in bilateral upper and lower extremities but worse on the left. Sensorium / Orientation: awake and alert Psych affect normal Results Medical Records Data Attestation: I reviewed the patient's medical records Lab / Micro Data Attestation: I reviewed the patient's lab results. Result Diagrams: 09/09/21 12:00 09/09/21 12:00 Labs: Laboratory Results - last 24 hr 09/09/21 12:00: WBC 4.0 L, RBC 4.41, Hgb 14.2, Hct 41.0, MCV 93.0, MCH 32.2 H, MCHC 34.6, RDW Std Deviation 44.1 H, RDW Coeff of Lilian 13.0, Plt Count 128 L, MPV 11.1, Immature Gran % (Auto) 0.800, Neut % (Auto) 71.7 H, Lymph % (Auto) 18.5 L, [place] % (Auto) 6.5, Eos % (Auto) 1.5, Baso % (Auto) 1.0, Absolute Neuts (auto) 2.9, Absolute Lymphs (auto) 0.74 L, Nucleated RBC % 0 09/09/21 12:00: PT 14.7, INR 1.2 09/09/21 12:00: Sodium 139, Potassium 3.9, Chloride 106, Carbon Dioxide 24.0, Anion Gap 9, BUN 14, Creatinine 0.96, Estim Creat Clear Calc 36.44, Est GFR (MDRD) Af Amer 72, Est GFR (MDRD) Non-Af 60, BUN/Creatinine Ratio 14.6, Glucose 254 H, Calcium 9.0, Total Bilirubin 0.90, AST 37, ALT 40, Alkaline Phosphatase 100, Troponin I High Sens 7, Total Protein 7.9, Albumin 3.3, Globulin 4.6 H, Albumin/Globulin Ratio 0.7 L Radiology Impression Brain CT 09/09/21 11:46 IMPRESSION: 1. No acute intracranial abnormality. 2. Senescent changes. Electronically Signed: Mihir Flores MD at 13:29 EDT , Chest X-Ray 09/09/21 11:46 IMPRESSION: No acute cardiopulmonary disease. Electronically Signed: Mihir Flores MD at 12:54 EDT , Assessment & Plan Assessment/Plan (1) Ataxia: PLAN: Onset was 05 September. Concern is for CVA Plan is for an MRI of the brain, MRA of the head and neck, 2D echocardiogram Continue with aspirin After work-up is completed then would consult [facility] telemetry neurology for further recommendations and instructions. PT OT and speech therapy evaluations. (2) Diabetes mellitus: PLAN: Continue with basal insulin and sliding scale Check an A1c (3) Rosacea: PLAN: Patient does not have any sparing of the nasolabial fold. Patient is never been told that she has lupus but she does have marked malar rash. We will check an [place]. PLAN: Plan VTE prophylaxis with enoxaparin CODE STATUS: Addressed with the patient. Patient wishes to be DNR Comfort Care arrest. Patient advised that she could change her mind anytime. Charges/Coding Visit Charges Inpatient E&M: 07646 Init Hosp L3
--- NOTE | 2021-09-09 14:25 | ECHOCS_ITS ---
Reason For Study: TIA/CVA Procedure This was a 2D Doppler, Color Flow transthoracic echocardiogram. The study was technically difficult. Contrast injection was performed. Exam performed portable in patient room. Left Ventricle Normal LV size. Left ventricular systolic function is normal. The estimated ejection fraction is 65 %. No regional wall motion abnormalities noted. Right Ventricle Normal RV size. Normal systolic function. Atria Normal left atrium. Normal right atrium. Mitral Valve There is mild to moderate mitral annular calcification. Trivial eccentric mitral valve insufficiency. Aortic Valve Trisinus/trileaflet aortic valve. Mild focal aortic valve calcification. Pulmonic Valve Normal pulmonic valve. Great Vessels Normal aortic root. The pulmonary artery is normal size. Normal inferior vena cava. Pericardium/Pleural No pericardial effusion. Medication Diluted definity 1.5ml given slow IV push to enhance endocardial definition. Performed a rapid injection of agitated mix of 9 cc saline and 1cc air to assess for atrial septal defect. MMode/2D Measurements & Calculations LVIDd: 3.4 cm IVSd: 1.3 cm Ao root diam: 2.9 cm LVIDs: 2.3 cm LVPWd: 1.5 cm FS: 33.2 % LAV(MOD-sp4): 41.5 ml LVAd ap4: 31.4 cm2 SV(MOD-sp4): 69.5 ml LVLd ap4: 8.7 cm EDV(MOD-sp4): 94.3 ml EDV(sp4-el): 96.2 ml LVAs ap4: 14.3 cm2 LVLs ap4: 6.9 cm ESV(MOD-sp4): 24.8 ml ESV(sp4-el): 25.3 ml EF(MOD-sp4): 73.7 % EF(sp4-el): 73.7 % SV(sp4-el): 70.8 ml LA A4 area: 15.8 cm2 RA A4 area: 9.9 cm2 Time Measurements MV dec time: 0.33 sec Doppler Measurements & Calculations MV E max nazario: 81.5 cm/sec Lat Peak E' Nazario: 6.7 cm/sec Med Peak E' Nazario: 4.4 cm/sec MV A max nazario: 155.5 cm/sec E/E' lat: 12.1 E/E' med: 18.4 MV E/A: 0.52 MV V2 max: 163.6 cm/sec Ao V2 max: 180.4 cm/sec MV max P.7 mmHg MV dec slope: 245.3 cm/sec2 Ao max P.0 mmHg MV V2 mean: 85.3 cm/sec Ao V2 mean: 127.7 cm/sec MV mean P.6 mmHg Ao mean P.4 mmHg MV V2 VTI: 40.1 cm Ao V2 VTI: 38.6 cm LV V1 max: 137.6 cm/sec LV V1 max P.6 mmHg LV V1 mean P.4 mmHg LV V1 mean: 111.7 cm/sec LV V1 VTI: 29.2 cm ECHO/Echo Complete W/ Contrast Interpretation Summary Normal LV size. Left ventricular systolic function is normal. The estimated ejection fraction is 65 %. There is mild to moderate mitral annular calcification. Mild focal aortic valve calcification. Ordering Physician: Arya Bartlett Performed By: Radha Lo RCS
--- NOTE | 2021-09-09 14:25 | MRI_ITS ---
We are attempting to reach an attending provider to discuss findings. An addendum with communication details will be sent when the communication is complete. EXAM: MR ANGIOGRAPHY HEAD WITHOUT INTRAVENOUS CONTRAST CLINICAL INDICATION: ataxia TECHNIQUE: Routine lyt[place] of Andrew/brain 3D time of flight MR angiogram protocol was performed without intravenous contrast. This report was created using [employer] report generation technology. COMPARISON: None. FINDINGS: RIGHT INTERNAL CAROTID ARTERY: No acute findings. No significant stenosis at the intracranial/visualized segments. No aneurysm. RIGHT ANTERIOR CEREBRAL ARTERY: Unremarkable. No significant stenosis at the visualized segments. Anterior communicating artery is present. No aneurysm. RIGHT MIDDLE CEREBRAL ARTERY: Unremarkable. No significant stenosis at the visualized segments. No aneurysm. RIGHT POSTERIOR CEREBRAL ARTERY: Occlusion of the right P1 segment. This likely affects the thalamostriate perforators. No aneurysm. RIGHT VERTEBRAL ARTERY: Unremarkable as visualized. No significant stenosis at the intradural/visualized segments. No aneurysm. LEFT INTERNAL CAROTID ARTERY: No acute findings. No significant stenosis at the intracranial/visualized segments. No aneurysm. LEFT ANTERIOR CEREBRAL ARTERY: Unremarkable. No significant stenosis at the visualized segments. Anterior communicating artery is present. No aneurysm. LEFT MIDDLE CEREBRAL ARTERY: Unremarkable. No significant stenosis at the visualized segments. No aneurysm. LEFT POSTERIOR CEREBRAL ARTERY: Unremarkable. No significant stenosis at the visualized segments. No aneurysm. LEFT VERTEBRAL ARTERY: Unremarkable as visualized. No significant stenosis at the intradural/visualized segments. No aneurysm. BASILAR ARTERY: Unremarkable. No significant stenosis. No aneurysm. OTHER VASCULATURE: No vascular malformation. MRI/MRA Head ONLY without Contrast IMPRESSION: Occlusion of the right P1 segment. This likely affects the thalamostriate perforators. However, there is distal flow suggesting collateral flow. Critical finding called and case discussed. Electronically Signed: Clement Zapata MD at 19:43 EDT ,
--- NOTE | 2021-09-09 14:25 | MRI_ITS ---
EXAM: MR ANGIOGRAPHY NECK WITHOUT INTRAVENOUS CONTRAST CLINICAL INDICATION: ataxia TECHNIQUE: Routine carotid MR angiogram protocol was performed without intravenous contrast. 3D reconstructions were reviewed. Nascet criteria using the distal ICAs for comparison were used for evaluation of stenoses. This report was created using [email or web address] technology. COMPARISON: None. FINDINGS: RIGHT COMMON CAROTID ARTERY: Unremarkable. No occlusion or significant stenosis. No dissection. RIGHT INTERNAL CAROTID ARTERY: Unremarkable. Extracranial segment is patent with no occlusion or significant stenosis. No dissection. RIGHT EXTERNAL CAROTID ARTERY: Unremarkable. No occlusion. RIGHT VERTEBRAL ARTERY: Unremarkable. No occlusion or significant stenosis. No dissection. LEFT COMMON CAROTID ARTERY: Unremarkable. No occlusion or significant stenosis. No dissection. LEFT INTERNAL CAROTID ARTERY: There are no acute findings of the right and left internal carotid artery. ALL ABOVE CRITERIA BY NASCET. Extracranial segment is patent with no occlusion or significant stenosis. No dissection. LEFT EXTERNAL CAROTID ARTERY: Unremarkable. No occlusion. LEFT VERTEBRAL ARTERY: Unremarkable. No occlusion or significant stenosis. No dissection. GREAT VESSELS OF AORTIC ARCH: Unremarkable. No significant stenosis. CAROTID STENOSIS REFERENCE USING NASCET CRITERIA: % ICA stenosis = (1 - narrowest ICA diameter/diameter of distal cervical ICA) x 100. Mild - <50% stenosis. Moderate - 50-69% stenosis. Severe - 70-94% stenosis. Near occlusion - 95-99% stenosis. Occluded - 100% stenosis. MRI/MRA Neck without Contrast IMPRESSION: There are no acute findings of the right and left internal carotid artery. ALL ABOVE CRITERIA BY NASCET. Electronically Signed: Clement Zapata MD at 19:43 EDT ,
[2021-09-09 15:00] LABS: Hemoglobin A1c 7.9 % (3.8-5.6)
[2021-09-09 15:18] LABS: Troponin-I HS 8 pg/mL (3.0-54.0)
[2021-09-09 16:25] LABS: Bedside Glucose 79 mg/dL (74-106)
--- NOTE | 2021-09-09 20:03 | TELEMED_ITS ---
[facility] Telemed has confirmed receipt of a request for visit. This document confirms receipt of the order initiating the consult. To find the results of the consultation, please view the patient's reports for the scanned Telemed Consult.
[2021-09-09] MEDS: 0.9% Saline Lock 10 ML Syringe IV (23:15)
[2021-09-09] MEDS: metFORMIN HCl 1,000 MG Tablet 1000 MG PO (23:15)
[2021-09-09] MEDS: Lisinopril 40 MG Tablet PO (23:16)
[2021-09-09] MEDS: glipiZIDE 5 MG Tablet PO (23:16)
[2021-09-09] MEDS: amLODIPine 5 MG Tablet PO (23:16)
[2021-09-09] MEDS: Insulin Glargine-YFGN 100 UNIT/ML Pen 38 UNIT SC (23:17)
[2021-09-10 01:31] LABS: Bedside Glucose 239 mg/dL (74-106)
[2021-09-10 02:00] VITALS: BP 164/59; PULSE 77; RESP 16; TEMP 37.1; O2SAT 96
[2021-09-10 04:00] VITALS: BP 162/57; PULSE 75; RESP 14; TEMP 37; O2SAT 94
[2021-09-10 06:59] VITALS: PULSE 76
[2021-09-10 07:01] LABS: Cholesterol 157 mg/dL (200); High Density Lipoprotein 33 mg/dL; Triglycerides 135 mg/dL; Very Low Density Lipoprotein 27 mg/dL (5-40)
[2021-09-10 08:00] VITALS: BP 164/51; PULSE 76; RESP 18; TEMP 36.7; O2SAT 97
--- NOTE | 2021-09-10 08:53 | PCM.PN.HOSP ---
Subjective Subjective Feeling better. Performed well with therapy. Objective Data Objective Data Vital Signs: Vital Signs Temp Pulse Resp BP Pulse Ox O2 Del Method 36.7 C 76 18 164/51 H 97 Room Air 09/10/21 08:00 09/10/21 08:00 09/10/21 08:00 09/10/21 08:00 09/10/21 08:00 09/10/21 08:10 Oxygen Delivery Method Room Air Weight: 66.678 kg Body Mass Index (BMI) 27.8 Intake & Output: Intake and Output for Last 24 Hours 09/08/21 09/09/21 09/10/21 23:59 23:59 23:59 Intake Total 480 / 480 Balance 480 / 480 Lab / Micro Data Result Diagrams: 09/09/21 12:00 09/09/21 12:00 Labs: Laboratory Results - last 24 hr 09/09/21 12:00: WBC 4.0 L, RBC 4.41, Hgb 14.2, Hct 41.0, MCV 93.0, MCH 32.2 H, MCHC 34.6, RDW Std Deviation 44.1 H, RDW Coeff of Lilian 13.0, Plt Count 128 L, MPV 11.1, Immature Gran % (Auto) 0.800, Neut % (Auto) 71.7 H, Lymph % (Auto) 18.5 L, Sumner % (Auto) 6.5, Eos % (Auto) 1.5, Baso % (Auto) 1.0, Absolute Neuts (auto) 2.9, Absolute Lymphs (auto) 0.74 L, Nucleated RBC % 0 09/09/21 12:00: PT 14.7, INR 1.2 09/09/21 12:00: Sodium 139, Potassium 3.9, Chloride 106, Carbon Dioxide 24.0, Anion Gap 9, BUN 14, Creatinine 0.96, Estim Creat Clear Calc 36.44, Est GFR (MDRD) Af Amer 72, Est GFR (MDRD) Non-Af 60, BUN/Creatinine Ratio 14.6, Glucose 254 H, Calcium 9.0, Total Bilirubin 0.90, AST 37, ALT 40, Alkaline Phosphatase 100, Troponin I High Sens 7, Total Protein 7.9, Albumin 3.3, Globulin 4.6 H, Albumin/Globulin Ratio 0.7 L 09/09/21 12:00: Hemoglobin A1c 7.9 H 09/09/21 14:44: Troponin I High Sens 8 09/09/21 16:05: POC Glucose 79 09/09/21 23:06: POC Glucose 239 H 09/10/21 06:05: Triglycerides 135, Cholesterol 157, LDL Cholesterol 97, VLDL Cholesterol 27, HDL Cholesterol 33 L Radiography Diagnostic Testing: Radiology Impression Brain MRI 09/09/21 00:00 IMPRESSION: 1. 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 2. Chronic involutional changes of the brain. Critical finding called and case discussed. Electronically Signed: Clement Zapata MD at 19:38 EDT , ADDENDUM: 09/09/211954 IMPRESSION: 1. 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 2. Chronic involutional changes of the brain. Critical finding called and case discussed. N.B. : The above Results were Read Back by Clement Zapata MD to Sandie Rutherford RN, and understanding confirmed on 09/09/2021 19:48:31 (ET). Electronically Signed: Clement Zapata MD at 19:38 EDT , Brain CT 09/09/21 11:46 IMPRESSION: 1. No acute intracranial abnormality. 2. Senescent changes. Electronically Signed: Mihir Flores MD at 13:29 EDT , Chest X-Ray 09/09/21 11:46 IMPRESSION: No acute cardiopulmonary disease. Electronically Signed: Mihir Flores MD at 12:54 EDT , Echocardiogram 09/09/21 14:25 Interpretation Summary Normal LV size. Left ventricular systolic function is normal. The estimated ejection fraction is 65 %. There is mild to moderate mitral annular calcification. Mild focal aortic valve calcification. Ordering Physician: Erickson Bartlett Performed By: Radha Lo RCS Head MRA 09/09/21 14:25 IMPRESSION: Occlusion of the right P1 segment. This likely affects the thalamostriate perforators. However, there is distal flow suggesting collateral flow. Critical finding called and case discussed. Electronically Signed: Clement Zapata MD at 19:43 EDT , ADDENDUM: 09/09/211954 IMPRESSION: Occlusion of the right P1 segment. This likely affects the thalamostriate perforators. However, there is distal flow suggesting collateral flow. Critical finding called and case discussed. N.B. : The above Results were Read Back by Clement Zapata MD to ERICKSON BARTLETT MD, and understanding confirmed on 09/09/2021 19:48:27 (ET). Electronically Signed: Clement Zapata MD at 19:43 EDT , Neck MRA 09/09/21 14:25 IMPRESSION: There are no acute findings of the right and left internal carotid artery. ALL ABOVE CRITERIA BY NASCET. Electronically Signed: Clement Zapata MD at 19:43 EDT , Physical Exam Const alert and no apparent distress Resp normal respiratory effort, no retractions, no use of accessory muscles and clear to auscultation bilaterally Neuro oriented x3 Neuro Narrative: Ataxia in the left. Nystagmus that fatigued on the left Assessment & Plan Assessment/Plan (1) Cerebrovascular accident (CVA) of right thalamus: PLAN: MRI shows punctate ischemic infarct of right thalamus MRA shows occlusion of right P1 segment echo shows an EF 65% on ASA, add clopidogrel, and HIS SOC neurology:DAPT for 21 days, then ASA. Cardiac outpt monitor (2) Ataxia: PLAN: 2/2 CVA PT OT as outpt (3) Diabetes mellitus: PLAN: Continue with basal insulin and sliding scale A1c 7.9 (4) Rosacea: PLAN: Patient does not have any sparing of the nasolabial fold. Patient is never been told that she has lupus but she does have marked malar rash. ENID pending PLAN: Plan VTE prophylaxis with enoxaparin CODE STATUS: Addressed with the patient. Patient wishes to be DNR Comfort Care arrest. Patient advised that she could change her mind anytime.
[2021-09-10 08:55] LABS: Bedside Glucose 77 mg/dL (74-106)
[2021-09-10 09:17] VITALS: O2SAT 97
[2021-09-10] MEDS: Enoxaparin 40 MG/0.4 ML Syringe SC (09:23)
[2021-09-10] MEDS: Insulin Glargine-YFGN 100 UNIT/ML Pen 41 UNIT SC (09:24)
[2021-09-10] MEDS: glipiZIDE 5 MG Tablet PO (09:24)
[2021-09-10] MEDS: Clopidogrel Bisulfate 75 MG Tablet PO (09:24)
[2021-09-10] MEDS: metFORMIN HCl 1,000 MG Tablet 1000 MG PO (09:32)
[2021-09-10 09:45] LABS: Bedside Glucose 245 mg/dL (74-106)
--- NOTE | 2021-09-10 10:55 | CASEMGMT ---
RN MAKENNA Face to Face with patient for initial transition planning/care coordination assessment. RN CM introduced self and role at [facility]. Patient lying in bed, alert and oriented, at bedside. Patient willing to participate in assessment and is able to answer all questions appropriately. Care providers, pharmacy, and demographics verified. Patient wishes to discharge home. Discussed outpatient therapy vs HHC. Patient states she will most likely not be home bound at discharge. Patient agreeable to outpatient therapy. CM to provided patient with script for outpatient therapy to take to facility of choice. Patient states she has no further needs or concerns at this time. CM to follow for discharge planning needs that may arise. PCP: Regina Specialists: none Preferred Pharmacy: [facility] retail at discharge. Insurance: [employer] [facility] Prescription Benefit: yes Living Will/HPOA: yes, Rahul Rosaline, YANNICK LNOK: Living Arrangements: Patient lives with in a condo with ramp to enter the home. Patient states she was independent at home. Transportation: self, DME/HHC: Patient has raised toilet, cane, walker, grab bars at home. Patient denies previous HHC or SNF. Disposition Plan: Patient to discharge home with outpatient therapy, family support, and family support at home. Petra MOHAN, RN, CM
[2021-09-10] MEDS: Insulin Lispro 100 UNIT/ML INSULN.PEN SC (11:20)
[2021-09-10 11:35] LABS: Bedside Glucose 292 mg/dL (74-106)
[2021-09-10 12:35] VITALS: BP 151/61; PULSE 80; RESP 18; TEMP 37; O2SAT 98
--- NOTE | 2021-09-10 12:59 | CASEMGMT ---
SW Note SW met with patient. Present in the room was patient's , Rahul. Patient gave verbal consent to complete the PHQ9 in the presence of her . Patient completed the PHQ9 with a score of 4. Per PHQ 9 scoring a score of 4 is normal. SW updated PCU Cobol Engineer, Petra COTTER
--- NOTE | 2021-09-10 13:23 | DCINST_ITS ---
Discharge Instructions Diet Discharge Diet: Low fat / Low cholesterol and 2000 Calorie Control Diet Dressing / Incision Call your doctor if you observe: Numbness or Tingling Follow Up Care Test Results: Test results from this visit will be discussed in further detail at your follow- up appointment, if applicable. Discharge Plan Admission Admit Date/Time: 09/09/21 14:05 Primary Reason for Your Visit: stroke Attending Provider: Arya Bartlett Primary Care Provider: Desiree Tapia Discharge Orders/Prescriptions Prescriptions: New atorvastatin 40 mg Tablet 40 mg PO QHS Qty: 30 0RF clopidogrel 75 mg Tablet 75 mg PO DAILY Qty: 30 0RF Continued metformin 500 MG tablet 1,000 mg PO BID amlodipine 5 MG tablet 5 mg PO QHS lisinopril 40 MG tablet 40 mg PO QHS glipizide 5 MG tablet 5 mg PO BID insulin lispro 100 UNIT/ML insulin pen 10 unit SQ 1800 Label Comments: as directed insulin glargine 100 UNITS/ML insulin pen 41 units subcut DAILY Label Comments: as directed insulin glargine [Lantus Solostar U-100 Insulin] 100 unit/mL (3 mL) insulin pen 38 unit subcut QHS Changed aspirin 81 MG tablet,delayed release (DR/EC) 81 mg PO DAILY Qty: 30 0RF Label Comments: follow instructions about stopping Other Ambulatory Orders: 30 Day Event Recorder Preventi (Urgent) Location: None Selected Ordered By: Dr. Arya Bartlett Referrals / Follow Up: Desiree Tapia MD [Primary Care Provider] - Within 2 Weeks Marv Coker MD [NON-STAFF] - Within 1 Month Disposition Disposition (needs filled in before D/C Order can be placed): Home, Self Care
--- NOTE | 2021-09-10 13:29 | DS.PCM_ITS ---
Providers Date of Admission: 09/09/21 Primary Care Physician: Dr. Desiree Tapia MD Reason For Visit: ATAXIA Diagnosis Discharge Diagnosis (1) Cerebrovascular accident (CVA) of right thalamus: Status: Acute Code(s): I63.81 - Other cerebral infarction due to occlusion or stenosis of small artery Plan: MRI shows punctate ischemic infarct of right thalamus MRA shows occlusion of right P1 segment echo shows an EF 65% on ASA, add clopidogrel, and HIS SOC neurology:DAPT for 21 days, then ASA. Cardiac outpt monitor Follow up neurology as outpt (2) Ataxia: Status: Acute Code(s): R27.0 - Ataxia, unspecified Plan: 2/2 CVA PT OT as outpt (3) Diabetes mellitus: Status: Acute Code(s): E11.9 - Type 2 diabetes mellitus without complications Plan: Continue with basal insulin and sliding scale A1c 7.9 (4) Rosacea: Status: Acute Code(s): L71.9 - Rosacea, unspecified Plan: Patient does not have any sparing of the nasolabial fold. Patient is never been told that she has lupus but she does have marked malar rash. ENID pending Plan VTE prophylaxis with enoxaparin CODE STATUS: Addressed with the patient. Patient wishes to be DNR Comfort Care arrest. Patient advised that she could change her mind anytime. Medications at Discharge Home Medications amlodipine 5 mg tablet 5 mg PO QHS htn 08/18/18 glipizide 5 mg tablet 5 mg PO BID diabetes 08/18/18 insulin glargine 100 unit/mL (3 mL) subcutaneous pen 41 units subcut DAILY diabetes 08/18/18 insulin lispro 100 unit/mL subcutaneous pen 10 unit SQ 1800 diabetes 08/18/18 lisinopril 40 mg tablet 40 mg PO QHS htn 08/18/18 metformin 500 mg tablet 1,000 mg PO BID diabetes 08/18/18 insulin glargine 100 unit/mL (3 mL) subcutaneous pen (Lantus Solostar U-100 Insulin) 38 unit subcut QHS dm 09/09/21 aspirin 81 mg tablet,delayed release 81 mg PO DAILY heart health #30 tabs 09/10/21 atorvastatin 40 mg tablet 40 mg PO QHS #30 tabs 09/10/21 clopidogrel 75 mg tablet 75 mg PO DAILY #30 tabs 09/10/21 Hospital Course Operations None Procedures 2-D Echocardiogram Summary of Care Provided Minutes Spent on Discharge: 32 Weight / BMI Weight Weight: 66.678 kg Body Mass Index (BMI) 27.8 ABG / Lab / Microbiology Data Result Diagrams: 09/09/21 12:00 09/09/21 12:00 Laboratory: Laboratory Results - last 24 hr 09/09/21 12:00: Hemoglobin A1c 7.9 H 09/09/21 14:44: Troponin I High Sens 8 09/09/21 16:05: POC Glucose 79 09/09/21 23:06: POC Glucose 239 H 09/10/21 06:05: Triglycerides 135, Cholesterol 157, LDL Cholesterol 97, VLDL Cholesterol 27, HDL Cholesterol 33 L 09/10/21 06:40: POC Glucose 77 09/10/21 09:21: POC Glucose 245 H 09/10/21 11:14: POC Glucose 292 H Radiography Diagnostic Testing: Radiology Impression Brain MRI 09/09/21 00:00 IMPRESSION: 1. 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 2. Chronic involutional changes of the brain. Critical finding called and case discussed. Electronically Signed: Clement Zapata MD at 19:38 EDT , ADDENDUM: 09/09/211954 IMPRESSION: 1. 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 2. Chronic involutional changes of the brain. Critical finding called and case discussed. N.B. : The above Results were Read Back by Clement Zapata MD to Sandie Rutherford RN, and understanding confirmed on 09/09/2021 19:48:31 (ET). Electronically Signed: Clement Zapata MD at 19:38 EDT , Brain CT 09/09/21 11:46 IMPRESSION: 1. No acute intracranial abnormality. 2. Senescent changes. Electronically Signed: Mihir Flores MD at 13:29 EDT , Echocardiogram 09/09/21 14:25 Interpretation Summary Normal LV size. Left ventricular systolic function is normal. The estimated ejection fraction is 65 %. There is mild to moderate mitral annular calcification. Mild focal aortic valve calcification. Ordering Physician: Erickson Bartlett Performed By: Radha Lo RCS Head MRA 09/09/21 14:25 IMPRESSION: Occlusion of the right P1 segment. This likely affects the thalamostriate perforators. However, there is distal flow suggesting collateral flow. Critical finding called and case discussed. Electronically Signed: Clement Zapata MD at 19:43 EDT , ADDENDUM: 09/09/211954 IMPRESSION: Occlusion of the right P1 segment. This likely affects the thalamostriate perforators. However, there is distal flow suggesting collateral flow. Critical finding called and case discussed. N.B. : The above Results were Read Back by Clement Zapata MD to ERICKSON BARTLETT MD, and understanding confirmed on 09/09/2021 19:48:27 (ET). Electronically Signed: Clement Zapata MD at 19:43 EDT , Neck MRA 09/09/21 14:25 IMPRESSION: There are no acute findings of the right and left internal carotid artery. ALL ABOVE CRITERIA BY NASCET. Electronically Signed: Clement Zapata MD at 19:43 EDT Reading Location ID and State: [facility] / [place] , Service support , D/C Instructions Discharge Diet: Low fat / Low cholesterol and 2000 Calorie Control Diet Call your doctor if you observe: Numbness or Tingling Meaningful Use Info Meaningful Use Diagnoses (Choose all that apply): Ischemic CVA CVA Therapy Assessed for PT,OT and/or ST?: Yes Ischemic Stroke Antithrombotic order at d/c?: Yes Dx of Atrial fib/flutter?: No Anticoagulant at discharge?: No Reason anticoagulant not ordered: Medical Contraindication Statins at discharge?: Yes Primary Dx Acute Ischemic CVA?: Yes IV tPA ordered during stay?: No Reason IV t-PA not ordered: Medical Contraindication Discharge Plan Admission Admit Date/Time: 09/09/21 14:05 Primary Reason for Your Visit: stroke Attending Provider: Erickson Bartlett Primary Care Provider: Desiree Tapia Discharge Orders/Prescriptions Prescriptions: New atorvastatin 40 mg Tablet 40 mg PO QHS Qty: 30 0RF clopidogrel 75 mg Tablet 75 mg PO DAILY Qty: 30 0RF Continued metformin 500 MG tablet 1,000 mg PO BID amlodipine 5 MG tablet 5 mg PO QHS lisinopril 40 MG tablet 40 mg PO QHS glipizide 5 MG tablet 5 mg PO BID insulin lispro 100 UNIT/ML insulin pen 10 unit SQ 1800 Label Comments: as directed insulin glargine 100 UNITS/ML insulin pen 41 units subcut DAILY Label Comments: as directed insulin glargine [Lantus Solostar U-100 Insulin] 100 unit/mL (3 mL) insulin pen 38 unit subcut QHS Changed aspirin 81 MG tablet,delayed release (DR/EC) 81 mg PO DAILY Qty: 30 0RF Label Comments: follow instructions about stopping Other Ambulatory Orders: 30 Day Event Recorder Preventi (Urgent) Location: None Selected Ordered By: Dr. Erickson Bartlett Referrals / Follow Up: Desiree Tapia MD [Primary Care Provider] - Within 2 Weeks Marv Coker MD [NON-STAFF] - Within 1 Month Disposition Disposition (needs filled in before D/C Order can be placed): Home, Self Care Charges/Coding Visit Charges Inpatient E&M: 59243 Disch Hosp
--- NOTE | 2021-09-10 14:17 | CASEMGMT ---
Therapy is recommending rehab for pt but pt prefers to go home with OP therapy script and states she has been to [facility] for same in past. Pt has support of spouse at home and walker or cane to assist. Pt provided with script for OP therapy and states no need for any further resources. Pt voices no further questions/concerns/needs. Jonathon RAMESH CM
--- NOTE | 2021-09-10 15:00 | PHA.DC.MC ---
Pharmacy Service has performed discharge medication reconciliation and counseling for this patient. 1. ATORVASTATIN 40MG PO QHS 2. CLOPIDOGREL 75MG PO DAILY The patient's discharge medication list was reviewed for discrepancies and discrepancies were resolved. Home Medications amlodipine 5 mg tablet 5 mg PO QHS htn 08/18/18 glipizide 5 mg tablet 5 mg PO BID diabetes 08/18/18 insulin glargine 100 unit/mL (3 mL) subcutaneous pen 41 units subcut DAILY diabetes 08/18/18 insulin lispro 100 unit/mL subcutaneous pen 10 unit SQ 1800 diabetes 08/18/18 lisinopril 40 mg tablet 40 mg PO QHS htn 08/18/18 metformin 500 mg tablet 1,000 mg PO BID diabetes 08/18/18 insulin glargine 100 unit/mL (3 mL) subcutaneous pen (Lantus Solostar U-100 Insulin) 38 unit subcut QHS dm 09/09/21 aspirin 81 mg tablet,delayed release 81 mg PO DAILY [employer] #30 tabs 09/10/21 atorvastatin 40 mg tablet 40 mg PO QHS #30 tabs 09/10/21 clopidogrel 75 mg tablet 75 mg PO DAILY #30 tabs 09/10/21 The patient was counseled on the following discharge medications and changes in medications for homegoing were reviewed. The Reason for Use, instructions for use, and potential side effects were reviewed for all new medications. The patient's questions regarding all of their medications were answered. The patient was able to verbally demonstrate an understanding of their discharge medications.
[2021-09-11 16:21] LABS: ANTINUCLEAR ANTIBODIES DIRECT Negative (Negative)
== END 2021-09-10 15:42 | disposition home or self-care (01) | DRG 66 ==
LOC: ED 13:43 → PCU 13:58
PROVIDERS: Emergency Provider Emergency Medicine; PCP Family Medicine
DX: I63.81 Other cerebral infarction due to occlusion or stenosis of small artery (principal); E11.9 Type 2 diabetes mellitus without complications; Z79.4 Long term (current) use of insulin; I10 Essential (primary) hypertension; L71.9 Rosacea, unspecified; G14 Postpolio syndrome; Z79.899 Other long term (current) drug therapy; Z79.82 Long term (current) use of aspirin; R29.702 NIHSS score 2; Z66 Do not resuscitate; R27.0 Ataxia, unspecified
CPT/HCPCS: 36415; 70450; 70544; 70547; 70551; 71045; 80053; 80061; 82962; 83036; 84484; 85025; 85610; 86038; 86225; 86235; 92522; 92610; 93005; 93306; 94762; 96372; 97162; 97166; 97802; 99221; 99284; Q9957; A4216; C8929; G0378

== ENCOUNTER → 2022-01-30 | Outpatient (CLI) | payer MEDICARE, SELFPAY ==
[2022-01-30 12:29] LABS: Erythrocyte Sedimentation Rate 31 mm/hr (0-30)
[2022-01-30 12:30] LABS: ALB/GLOB Ratio 0.7 RATIO (0.9-2.4); AST(SGOT) 41 U/L (15-37); Alanine Aminotransfer ALT/SGPT 43 U/L (13-56); Albumin, Serum 3.4 g/dL (3.2-5.0); Alkaline Phosphatase 116 U/L (45-117); Anion Gap 6 (5-15); BUN 17 mg/dL (7-18); BUN/Creat Ratio 15.9 RATIO (10-20); CRP < 2.90 mg/L (0.0-3.0); Chloride 110 mmol/L (98-107); Creatinine, Serum 1.07 mg/dL (0.55-1.02); EST Glomerular Filtration Rate 53 mL/min (>60); Est Glom Filt Rate - Afr Amer 64 mL/min (>60); Globulin 4.7 g/dL (2.2-4.2); Glucose 125 mg/dL (74-106); Potassium 4.4 mmol/L (3.5-5.1); Protein, Total 8.1 g/dL (6.4-8.2); Sodium Level 141 mmol/L (136-145); Uric Acid 5.9 mg/dL (2.6-6.0)
== END | disposition home or self-care (01) ==
LOC: BFHLAB 10:34
PROVIDERS: PCP Family Medicine; Visit Provider Family Medicine
DX: Z51.81 Encounter for therapeutic drug level monitoring (principal); M25.50 Pain in unspecified joint
CPT/HCPCS: 36415; 80053; 84550; 85652; 86140

== ENCOUNTER → 2022-02-25 | Outpatient (CLI) | payer MEDICARE, SELFPAY ==
--- NOTE | 2022-02-25 12:45 | ART_ITS ---
Reason For Study: absent right pedal pulses Procedure A bilateral lower extremity continuous wave Doppler with analog waveform analysis and ankle brachial indexes. Left Segmental Pressures Left brachial= 150mmHg. Left posterior tibial artery = 125mmHg. Left dorsalis pedis artery = 146mmHg. The left dorsalis pedis waveforms are biphasic. The left posterior tibial artery waveforms are biphasic. Right Segmental Pressures Right brachial= 144mmHg. Right posterior tibial artery = 131mmHg. Right dorsalis pedis artery = 122mmHg. The right dorsalis pedis waveforms are triphasic. The right posterior tibial artery waveforms are biphasic. Indices The right ankle brachial index by the posterior tibial artery is .87. The right ankle brachial index by the dorsalis pedis is .81. The left ankle brachial index by the posterior tibial artery is .83. The left ankle brachial index by the dorsalis pedis is .97. VL/Ankle Brachial Index Interpretation Summary Right JYOTIH 0.87, moderate arterial insufficiency. Doppler/PVR waveforms of the r ight ankle moderately diminished. Left JYOTHI 0.97, mild arterial insufficiency. Doppler/PVR waveforms of the left a nkle mildly diminished. Ordering Physician: Barbie Watts Referring Physician: BARBIE WATTS MD Performed By: Karl Loomis RVT
--- NOTE | 2022-02-25 12:45 | CDU_ITS ---
Reason For Study: bruit Rt. Velocities/BP Lt. Velocities/BP Prox CCA 70.7/10.2 cm/sec. Prox CCA 114.6/18.8 cm/sec. Mid CCA 77.3/11.3 cm/sec. Mid CCA 109.7/16.3 cm/sec. Dist CCA 83.9/12.4 cm/sec. Dist CCA 92.5/11.4 cm/sec. Prox ICA 115.6/20.6 cm/sec. Prox ICA 124.7/18.8 cm/sec. Mid ICA 174.1/26.1 cm/sec. Mid ICA 121.1/18.8 cm/sec. Dist ICA 112.0/17.0 cm/sec. Dist ICA 137.5/20.6 cm/sec. Rt. ICA/CCA = 2.3. Lt. ICA/CCA = 1.3. Prox ECA 236.6/8.6 cm/sec. Prox ECA 141.2/9.4 cm/sec. Rt. Vert. 57.0/8.8 cm/sec. Lt. Vert. 81.7/16.8 cm/sec. Right Extracranial There is heterogeneous, irregular atherosclerotic plaque noted in the right common carotid artery. There is heterogeneous, irregular atherosclerotic plaque noted in the right internal carotid artery. There is homogeneous, smooth atherosclerotic plaque noted in the right external carotid artery. Antegrade flow is noted in the right vertebral artery. Left Extracranial There is heterogeneous, irregular atherosclerotic plaque noted in the left common carotid artery. There is heterogeneous, irregular atherosclerotic plaque noted in the left internal carotid artery. There is intimal thickening but no significant atherosclerotic plaque noted in the left external carotid artery. Antegrade flow is noted in the left vertebral artery. Procedure Carotid Duplex [id number]. This is a Carotid Duplex examination using B-mode, color flow and specral Doppler. The exam was diagnostic. Exam performed in department. VL/Carotid Duplex Ultrasound Interpretation Summary Moderate (50-69%) stenosis right extracranial internal carotid. Moderate (50-69%) stenosis left extracranial internal carotid. Patent and antegrade vertebrals bilaterally. Ordering Physician: Surendra Hidalgo Performed By: Karl Loomis RVT
--- NOTE | 2022-02-25 12:45 | RAD_ITS ---
INDICATION: Bilateral ankle pain EXAMINATION/TECHNIQUE: X-RAY - LEFT XR Ankle Min 3 Views 3 VIEWS COMPARISON: None. FINDINGS: SOFT TISSUES: Medial and lateral ankle soft tissue swelling. No soft tissue gas or radiopaque foreign body. BONES/JOINTS: Demineralized. There is cortical thinning with poor delineation of the medial talus and calcaneus. No acute fracture or subluxation.. Normal alignment. Preservation of the joint space.. No sclerotic or destructive changes observed. RAD/Ankle min 3 Views IMPRESSION: Poor delineation with cortical thinning of the medial talus and calcaneus with overlying soft tissue swelling. Correlate with clinical suspicion for infection. No other acute abnormal finding. Electronically Signed: Kodak Syed MD at 17:33 EST ,
--- NOTE | 2022-02-25 12:50 | RAD_ITS ---
INDICATION: BILATERAL FOOT PAIN EXAMINATION/TECHNIQUE: X-RAY - RIGHT XR Foot Min 3 Views 3 VIEWS COMPARISON: None. FINDINGS: SOFT TISSUES: No soft tissue swelling or gas. No radiopaque foreign body. BONES/JOINTS: Demineralized. No acute fracture or subluxation.. Normal alignment. Preservation of the joint space.. Mildly sclerotic appearance of the first metatarsal. RAD/Foot min 3 Views IMPRESSION: There may be a stress reaction in the first metatarsal. No other acute abnormal finding. Electronically Signed: Kodak Syed MD at 17:49 EST ,
--- NOTE | 2022-02-25 12:50 | RAD_ITS ---
INDICATION: BILATERAL ANKLE PAIN EXAMINATION/TECHNIQUE: X-RAY - RIGHT XR Ankle Min 3 Views 3 VIEWS COMPARISON: None. FINDINGS: SOFT TISSUES: Mild soft tissue swelling of ankle. No soft tissue gas or radiopaque foreign body. BONES/JOINTS: Demineralized. No acute fracture or subluxation.. Normal alignment. Preservation of the joint space.. No sclerotic or destructive changes observed. RAD/Ankle min 3 Views IMPRESSION: Mild soft tissue swelling. Demineralized bones. Electronically Signed: Kodak Syed MD at 17:47 EST ,
--- NOTE | 2022-02-25 13:30 | RAD_ITS ---
INDICATION: Bilateral foot pain EXAMINATION/TECHNIQUE: X-RAY - LEFT XR Foot Min 3 Views 3 VIEWS COMPARISON: None. FINDINGS: SOFT TISSUES: No soft tissue swelling or gas. No radiopaque foreign body. BONES/JOINTS: Demineralized. No acute fracture or subluxation.. Normal alignment. Preservation of the joint space.. No sclerotic or destructive changes observed. RAD/Foot min 3 Views IMPRESSION: Demineralized bones. No acute abnormal finding. Electronically Signed: Kodak Syed MD at 17:34 EST ,
[2022-02-25 14:25] LABS: Hemoglobin 11.6 g/dL (12.0-15.0); Mean Corp Hgb Conc 32.2 g/dL (32-36); Mean Corpuscular Hgb 30.4 pg (27.0-32.0); Mean Corpuscular Volume 94.5 fL (81-99); Mean Platelet Vol. 11.5 fl (6.2-12.0); Platelet Count 131 K/mm3 (150-450); RBC Distribution Width CV 13.1 % (11.6-14.6); RBC Distribution Width SD 45.1 fl (35.1-43.9); Red Blood Count 3.81 M/mm3 (4.2-5.4); White Blood Count 3.9 K/mm3 (4.4-11.0)
[2022-02-25 14:55] LABS: Vitamin B12 428 pg/mL (211-911)
[2022-02-25 15:09] LABS: ALB/GLOB Ratio 0.8 RATIO (0.9-2.4); AST(SGOT) 35 U/L (15-37); Alanine Aminotransfer ALT/SGPT 37 U/L (13-56); Albumin, Serum 3.3 g/dL (3.2-5.0); Alkaline Phosphatase 120 U/L (45-117); Anion Gap 6 (5-15); BUN 17 mg/dL (7-18); BUN/Creat Ratio 15.9 RATIO (10-20); Calcium,Total 8.8 mg/dL (8.5-10.1); Chloride 113 mmol/L (98-107); Creatinine, Serum 1.07 mg/dL (0.55-1.02); EST Glomerular Filtration Rate 53 mL/min (>60); Est Glom Filt Rate - Afr Amer 64 mL/min (>60); Globulin 4.1 g/dL (2.2-4.2); Glucose 59 mg/dL (74-106); Potassium 4.1 mmol/L (3.5-5.1); Protein, Total 7.4 g/dL (6.4-8.2); Sodium Level 143 mmol/L (136-145); Thyroid Stim Hormone (TSH) 3.78 uIU/mL (0.358-3.74)
[2022-02-28 22:06] LABS: Free Kappa Light Chains 69.8 mg/L (3.3-19.4)
== END | disposition home or self-care (01) ==
LOC: CVS 12:43
PROVIDERS: PCP Family Medicine; Referring Provider Psychiatry & Neurology Neurology; Visit Provider Psychiatry & Neurology Neurology
DX: I65.23 Occlusion and stenosis of bilateral carotid arteries (principal); M25.571 Pain in right ankle and joints of right foot; M79.671 Pain in right foot; R09.89 Other specified symptoms and signs involving the circulatory and respiratory systems; G14 Postpolio syndrome; I10 Essential (primary) hypertension; G62.9 Polyneuropathy, unspecified; M79.672 Pain in left foot; M25.572 Pain in left ankle and joints of left foot
CPT/HCPCS: 36415; 73610; 73630; 80053; 82607; 82746; 83883; 84425; 84443; 85027; 93880; 93922

== ENCOUNTER → 2022-04-08 | Outpatient (CLI) | payer MEDICARE, SELFPAY ==
--- NOTE | 2022-04-08 09:07 | US_ITS ---
STUDY: ABDOMINAL ULTRASOUND - RIGHT UPPER QUADRANT REASON FOR VISIT: Female, 76 years old KNOWN GALLSTONES TECHNIQUE: Ultrasound evaluation of the right upper quadrant was performed with real-time and static sparrow-scale imaging. TECHNICAL QUALITY: Adequate. COMPARISON: None. FINDINGS: Liver: The liver measures 15 cm. There is increased echogenicity consistent with fatty infiltration. The bile ducts are within normal limits. There is hepatic color flow. The direction of portal flow is hepatopetal. There is no demonstrated mass lesion. Gallbladder: Normal distended gallbladder. The gallbladder wall measures 1.7 mm. There is a negative sonographic Montenegro''s sign. There is no pericholecystic fluid. There is a solitary echogenic gallstone within the gallbladder. This measures 1.3 cm x 0.7 cm x 0.7 cm. Sludge is seen within the gallbladder lumen. Common Bile Duct (C.B.D.): The common bile duct measures 7 mm. Pancreas: Normal size of the head, body and tail of the pancreas. There is normal echogenicity of the pancreas. There is no demonstrated pancreatic mass or cyst. Right Kidney: Normal size of the right kidney. The right kidney measures 11.7 cm x 4.2 cm x 4.6 cm. Normal renal cortex. The right cortex measures 1.5 cm. There is no demonstrated renal mass or cyst. There is no right hydronephrosis. US/Abdomen Limited IMPRESSION: Fatty infiltration of the liver. Solitary gallstone. Electronically Signed: Nic Bland MD at 12:57 EST ,
--- NOTE | 2022-04-08 09:08 | NM_ITS ---
CLINICAL: 76-year-old female with history of known cholelithiasis. RADIONUCLIDE HEPATOBILIARY SCINTIGRAPHY COMPARISON: Abdominal ultrasound report 04/08/2022 FINDINGS: Following the intravenous administration of 5.3 mCi of 99m Tc Mebrofenin, hepatobiliary images reveal: 1. Relatively prompt and homogeneous radiopharmaceutical concentration is noted by a normal sized liver. No parenchymal defects are identified. 2. Gallbladder activity is identified at 15 minutes post radiopharmaceutical administration. 3. Small intestinal tract is observed at 15 minutes following tracer injection. 4. Washout of the radiopharmaceutical by the hepatic parenchyma appears qualitatively normal. Cholecystokinin (0.02 ug/kg) was administered intravenously over a 30-minute period. The post CCK gallbladder ejection fraction calculated at 22 minutes following Cholecystokinin administration was noted to be 40.0 % (normal greater than 35%). During 30 minutes of post CCK imaging, there is no scintigraphic evidence of reflux of the radiotracer into the common hepatic duct or refilling of the gallbladder. There is scintigraphic evidence of post CCK duodenal gastric reflux. OH/Hepatobilliary Img w/Pharm Int IMPRESSION: 1. A gallbladder ejection fraction calculated to be greater than 35% following the administration of Cholecystokinin makes the probability of functional hepatobiliary disease (gallbladder and/or sphincter of Oddi dyskinesia) and/or organic hepatobiliary disease (chronic acalculous cholecystitis and/or cystic duct syndrome) to be low. (Ankit Neal et al, Journal of Nuclear Medicine 32:1695, 1990). 2. There is scintigraphic evidence of post CCK duodenal-gastric reflux. (Belinda et al, Nucl Med Renetta Veronica Press pg. 35, 1980). Electronically Signed: Jasbir Glasgow, at 20:13 EST ,
== END | disposition home or self-care (01) ==
PROVIDERS: PCP Family Medicine; Visit Provider Family Medicine
DX: K80.20 Calculus of gallbladder without cholecystitis without obstruction (principal)
CPT/HCPCS: 76705; 78227; A9537; J2805

== ENCOUNTER → 2022-04-30 | Outpatient (CLI) | payer MEDICARE, SELFPAY ==
--- NOTE | 2022-04-30 15:58 | NEURO ---
NCS and/or EMG Patient Report Ordering Doctor: Surendra Hidalgo DATE OF SERVICE: 04/30/22 Sandie presents for electrodiagnostic testing of the lower limbs. She reports a history of polio and has had weakness in the right leg. She also reports a CVA last year which is limited use of her left leg. She reports numbness and tingling in both feet. Electrodiagnostic findings: Right median motor nerve demonstrates normal distal latency, amplitude and conduction velocity. Normal left peroneal motor response. Normal tibial motor response bilaterally. Normal peroneal and tibial F waves. H reflex is prolonged bilaterally. Sensory responses are absent bilaterally in the sural, superficial peroneal and medial plantar nerves. On needle EMG, 1+ fibrillations noted in the right anterior tibialis with decreased recruitment. Decreased recruitment noted in the right gastrocnemius. All muscles tested in the left lower limb showed no evidence of denervation. No denervation noted in lumbar paraspinals. Electrodiagnostic impression: This is an abnormal study in the lower limbs 1. Electrodiagnostic findings suggestive of peripheral polyneuropathy, sensory greater than motor. She does report a history of diabetes. 2. There is denervation of the right anterior tibialis with decreased recruitment and a decreased recruitment pattern in the right gastrocnemius, consistent with her history of polio
== END | disposition home or self-care (01) ==
LOC: PSN 06:32
PROVIDERS: PCP Family Medicine; Visit Provider Psychiatry & Neurology Neurology
DX: G14 Postpolio syndrome (principal); G62.9 Polyneuropathy, unspecified
CPT/HCPCS: 95886; 95912

== ENCOUNTER → 2022-05-20 | Outpatient (CLI) | payer MEDICARE, SELFPAY ==
[2022-05-20 15:14] LABS: Absolute Lymphocyte Count 0.99 X10^3/uL (0.83-4.51); Absolute Neutrophil Count 4.3 X10^3/uL (2.0-7.7); Basophil# 0.06 X10^3/uL; Eosinophil# 0.21 X10^3/uL; Eosinophils% 3.4 % (0-5); Hematocrit 36.3 % (37-47); Hemoglobin 11.5 g/dL (12.0-15.0); Lymphocyte # 0.99 X10^3/ul (0.83-4.51); Mean Corp Hgb Conc 31.7 g/dL (32-36); Mean Corpuscular Hgb 30.7 pg (27.0-32.0); Mean Corpuscular Volume 97.1 fL (81-99); Mean Platelet Vol. 11.7 fl (6.2-12.0); Monocyte# 0.57 X10^3/uL; Monocyte% 9.2 % (0-10); NRBC Flagged by Analyzer 0 % (0-5); Neutrophil # 4.33 X10^3/uL (2.7-7.7); Neutrophil % 69.9 % (47-70); Platelet Count 161 K/mm3 (150-450); RBC Distribution Width CV 13.8 % (11.6-14.6); RBC Distribution Width SD 49.1 fl (35.1-43.9); Red Blood Count 3.74 M/mm3 (4.2-5.4); White Blood Count 6.2 K/mm3 (4.4-11.0)
[2022-05-20 15:43] LABS: Vitamin B12 442 pg/mL (211-911)
[2022-05-20 15:55] LABS: Anion Gap 10 (5-15); BUN 26 mg/dL (7-18); BUN/Creat Ratio 21.3 RATIO (10-20); Calcium,Total 8.9 mg/dL (8.5-10.1); Chloride 111 mmol/L (98-107); Creatinine, Serum 1.22 mg/dL (0.55-1.02); EST Glomerular Filtration Rate 45 mL/min (>60); Est Glom Filt Rate - Afr Amer 55 mL/min (>60); Glucose 67 mg/dL (74-106); Potassium 4.3 mmol/L (3.5-5.1); Sodium Level 141 mmol/L (136-145); Thyroid Stim Hormone (TSH) 5.28 uIU/mL (0.358-3.74)
[2022-05-20 16:33] LABS: Hemoglobin A1c 6.4 % (3.8-5.6)
== END | disposition home or self-care (01) ==
LOC: LAB 14:05
PROVIDERS: PCP Family Medicine; Referring Provider Family Medicine; Visit Provider Family Medicine
DX: R53.83 Other fatigue (principal); E11.319 Type 2 diabetes mellitus with unspecified diabetic retinopathy without macular edema
CPT/HCPCS: 36415; 80048; 82607; 83036; 84443; 85025

== ENCOUNTER → 2022-06-11 | Outpatient (CLI) | payer MEDICARE, SELFPAY ==
--- NOTE | 2022-06-11 10:00 | MRI_ITS ---
INDICATION: RIGHT SIDED PAIN, RADIATING POSTERIOR TO SHOULDER BLADE EXAMINATION: MR Spine Cervical W/O Contrast TECHNIQUE: Multiplanar and multisequence MR images of the cervical spine were performed. IV Contrast Dosage and Agent: None. COMPARISON: None. FINDINGS: VERTEBRAE: Normal vertebral body height. There is no marrow edema or fracture. There is intervertebral disc height loss and osteophyte formation from C3-4 through C6-7. There are hypoplastic discs at T1-2, T2-3 and T3-4. Partial fusion of the T1-2 and T2-3 vertebral bodies. VERTEBRAL ALIGNMENT: Normal, including the craniocervical junction and cervicothoracic junction. No spondylolisthesis. There is straightening of the normal cervical lordosis. CERVICAL SPINAL CORD: Ventral cord flattening secondary to cervical spondylosis changes at multiple levels. Loss of the normal cervical enlargement of the spinal cord. No abnormal spinal cord signal intensity is demonstrated. No abnormal intraspinal fluid collection. NECK SOFT TISSUES: No prevertebral soft tissue swelling. There is no cervical adenopathy. Thyroid gland obscured by a saturation band on the axial series. AXIAL IMAGES: C2-3: Mild facet degenerative changes. No significant spinal canal or foraminal narrowing. C3-4: Broad left central protrusion with left ventral cord flattening and mild spinal canal stenosis. There is severe left and moderate right foraminal narrowing. Mass effect upon the left C4 nerve root. C4-5: Small central protrusion and endplate osteophyte formation with ventral cord flattening. Ligamentum flavum thickening and moderate spinal canal stenosis. There is asymmetric right facet arthropathy. Severe right and moderate to severe left foraminal narrowing with C5 nerve root impingement. C5-6: Right central disc protrusion with ventral cord flattening. There is mild spinal canal stenosis. Mild bilateral foraminal narrowing. C6-7: There is a large left central disc protrusion with ventral cord flattening and moderate spinal canal stenosis. There is moderate to severe bilateral foraminal narrowing with C7 nerve root impingement. C7-T1: Bilateral facet degenerative changes. No significant spinal canal or foraminal stenosis.. MRI/Spine Cervical (Routine) IMPRESSION: Multilevel cervical spondylosis changes with spinal stenosis and nerve root impingement as described. Surgical evaluation is recommended. Electronically Signed: Kodak Kelsey MD at 17:01 EDT ,
== END | disposition home or self-care (01) ==
PROVIDERS: PCP Family Medicine; Referring Provider Family Medicine; Visit Provider Family Medicine
DX: M48.02 Spinal stenosis, cervical region (principal)
CPT/HCPCS: 72141

== ENCOUNTER → 2022-06-23 | Outpatient (CLI) | payer MEDICARE, SELFPAY ==
[2022-06-26 15:09] LABS: Albumin 3.2 g/dL (2.9-4.4); Alpha-1-Globulins 0.3 g/dL (0.0-0.4); Alpha-2-Globulins 0.7 g/dL (0.4-1.0); Gamma Globulin 1.8 g/dL (0.4-1.8); Immunoglobulin A 533 mg/dL (64-422); Immunoglobulin G 1575 mg/dL (586-1602); Immunoglobulin M 83 mg/dL (26-217); PROEL- TOTAL PROTEIN 7.4 g/dL (6.0-8.5)
== END | disposition home or self-care (01) ==
LOC: MTLAB 12:54
PROVIDERS: PCP Family Medicine; Referring Provider Psychiatry & Neurology Neurology; Visit Provider Psychiatry & Neurology Neurology
DX: G62.9 Polyneuropathy, unspecified (principal)
CPT/HCPCS: 36415; 82784; 84165; 86334; 86335

== ENCOUNTER → 2022-07-01 | Outpatient (CLI) | payer MEDICARE, SELFPAY ==
[2022-07-01 12:52] LABS: Vitamin B12 517 pg/mL (211-911)
[2022-07-01 13:24] LABS: Anion Gap 8 (5-15); BUN 22 mg/dL (7-18); BUN/Creat Ratio 21.2 RATIO (10-20); Calcium,Total 9.1 mg/dL (8.5-10.1); Chloride 110 mmol/L (98-107); Creatinine, Serum 1.04 mg/dL (0.55-1.02); EST Glomerular Filtration Rate 54 mL/min (>60); Est Glom Filt Rate - Afr Amer 66 mL/min (>60); Glucose 117 mg/dL (74-106); Potassium 3.9 mmol/L (3.5-5.1); Sodium Level 142 mmol/L (136-145); T4 Free Direct 1.19 ng/dL (0.76-1.46); Thyroid Stim Hormone (TSH) 3.97 uIU/mL (0.358-3.74)
[2022-07-01 13:53] LABS: Microalbumin:Creatinine Ratio 521.1 mg/g CRE (<30 mg/g CRE)
== END | disposition home or self-care (01) ==
LOC: BFHLAB 11:10
PROVIDERS: PCP Family Medicine; Referring Provider Family Medicine; Visit Provider Family Medicine
DX: E03.9 Hypothyroidism, unspecified (principal); E53.8 Deficiency of other specified B group vitamins; E78.5 Hyperlipidemia, unspecified
CPT/HCPCS: 36415; 80048; 82043; 82570; 82607; 84439; 84443

== ENCOUNTER → 2022-11-25 | Outpatient (CLI) | payer MEDICARE, SELFPAY | END | disposition home or self-care (01) | LOC: SL 11:42 | PROVIDERS: PCP Family Medicine; Referring Provider Psychiatry & Neurology Neurology; Visit Provider Psychiatry & Neurology Neurology | DX: G47.10 Hypersomnia, unspecified (principal) | CPT/HCPCS: 95806 ==

== ENCOUNTER → 2023-02-23 | Outpatient (CLI) | payer MEDICARE, SELFPAY ==
--- NOTE | 2023-02-23 09:40 | CDU_ITS ---
Reason For Study: Bilateral Carotid Stenosis Rt. Velocities/BP Lt. Velocities/BP Prox CCA 90.0/9.7 cm/sec. Prox CCA 100.1/18.9 cm/sec. Mid CCA 91.9/11.5 cm/sec. Mid CCA 104.5/16.7 cm/sec. Dist CCA 77.3/15.2 cm/sec. Dist CCA 108.9/18.9 cm/sec. Prox ICA 138.1/21.5 cm/sec. Prox ICA 126.4/23.3 cm/sec. Mid ICA 112.3/20.7 cm/sec. Mid ICA 112.1/20.3 cm/sec. Dist ICA 136.8/26.4 cm/sec. Dist ICA 100.7/18.4 cm/sec. Rt. ICA/CCA = 1.5. Lt. ICA/CCA = 1.2. Prox ECA 145.9/21.5 cm/sec. Prox ECA 137.4/14.5 cm/sec. Rt. Vert. 47.8/7.2 cm/sec. Lt. Vert. 59.1/11.0 cm/sec. Right Extracranial There is heterogeneous, irregular atherosclerotic plaque noted in the right common carotid artery. There is heterogeneous, irregular atherosclerotic plaque noted in the right internal carotid artery. There is homogeneous, smooth atherosclerotic plaque noted in the right external carotid artery. Antegrade flow is noted in the right vertebral artery. Left Extracranial There is heterogeneous, irregular atherosclerotic plaque noted in the left common carotid artery. There is heterogeneous, irregular atherosclerotic plaque noted in the left internal carotid artery. There is intimal thickening but no significant atherosclerotic plaque noted in the left external carotid artery. Antegrade flow is noted in the left vertebral artery. Procedure Carotid Duplex 83112. This is a Carotid Duplex examination using B-mode, color flow and specral Doppler. The exam was diagnostic. Exam performed in department. VL/Carotid Duplex Ultrasound Interpretation Summary Moderate (50-69%) stenosis right extracranial internal carotid. Moderate (50-69%) stenosis left extracranial internal carotid. Patent and antegrade vertebrals bilaterally. Ordering Physician: Haley Menard Referring Physician: Surendra Hidalgo Performed By: Jostin Segura RVT
--- OUTSIDE RECORDS SUMMARY | 2023-02-23 09:59 | XMS RPT_ITS | CCD ---
Author Name Unknown Address [address] [place] [address] [address] [place] [address] Organization [facility] Care Team Providers Care Extension Service Supervisor Name Role Phone SHARAN SOLARES Unavailable Unavailable SHARAN SOLARES Unavailable Unavailable SHARAN SOLARES Unavailable Unavailable YOLANDE PATINO Unavailable Unavailable PROVIDER, UNKNOWN Unavailable Unavailable PROVIDER, UNKNOWN Unavailable Unavailable PROVIDER, UNKNOWN Unavailable Unavailable SHARAN SOLARES Attending Unavailable SHARAN SOLARES Primary Care Unavailable SHARAN SOLARES Referring Unavailable Problems Problem Classification Problem Date Documented Date Episodic/Chronic Diabetes mellitus with complications (1 source) 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; Translations: [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] Onset: 10-14-2017 Chronic Encounters Encounter Date Encounter Type Care Provider Facility Start: 09-16-2021 End: 12-10-2021 ambulatory SHARAN SOLARES Facility:[facility] Start: 10-14-2017 End: 10-14-2017 Patient encounter SHARAN [facility] Payers Date Payer Category Payer Private Health Insurance [id number] 1945 Unknown [id number] Medicare [id number] Summary Purpose Family History No Family History Records FoundNo Family History Records Found Advance Directives No Advanced Directives Records FoundNo Advanced Directives Records Found Additional Source Comments INFORMATION SOURCE (unrecogn ized section and content) DATE CREATED AUTHOR AUTHOR'S ORGANIZ ATION 01/18/2022 [facility] ([place] FOR RECORDS PERTAINING TO PATIENTS WHO ARE OR HAVE BEEN ENROLLED IN A CHEMICAL DEPENDENCY/SUBSTANCEABUSE PROGRAM, SOME INFORMATION MAY BE OMITTED. This clinical summary was aggregated from multiple sources. Caution should be exercised in using it in the provision of clinical care. This summary normalizes information from multiple sources, and as a consequence, information in this document may materially change the coding, format and clinical context of patient data. In addition, data may be omitted in some cases. CLINICAL DECISIONS SHOULD BE BASED ON THE PRIMARY CLINICAL RECORDS. [facility]. provides no warranty or guarantee of the accuracy or completeness of information in this document.
== END | disposition home or self-care (01) ==
LOC: CVS 09:40
PROVIDERS: PCP Family Medicine; Referring Provider Physician Assistant; Visit Provider Physician Assistant
DX: R09.89 Other specified symptoms and signs involving the circulatory and respiratory systems (principal); I65.29 Occlusion and stenosis of unspecified carotid artery
CPT/HCPCS: 93880

== ENCOUNTER → 2023-07-02 | Outpatient (CLI) | payer MEDICARE, SELFPAY ==
[2023-07-02 10:24] LABS: Absolute Neutrophil Count 2.8 X10^3/uL (2.0-7.7); Basophil# 0.06 X10^3/uL; Basophil% 1.5 % (0-1); Eosinophil# 0.15 X10^3/uL; Eosinophils% 3.7 % (0-5); Hematocrit 34.7 % (37-47); Lymphocyte % 17.4 % (19-41); Mean Corp Hgb Conc 31.7 g/dL (32-36); Mean Corpuscular Hgb 29.6 pg (27.0-32.0); Mean Corpuscular Volume 93.3 fL (81-99); Mean Platelet Vol. 10.6 fl (6.2-12.0); Monocyte# 0.29 X10^3/uL; Monocyte% 7.2 % (0-10); NRBC Flagged by Analyzer 0 % (0-5); Neutrophil # 2.81 X10^3/uL (2.7-7.7); Platelet Count 133 K/mm3 (150-450); RBC Distribution Width CV 13.2 % (11.6-14.6); RBC Distribution Width SD 44.6 fl (35.1-43.9); Red Blood Count 3.72 M/mm3 (4.2-5.4)
[2023-07-02 10:54] LABS: Protein, Urine (Random) 249.7 mg/dL (<11.9); Protein:Creat Ratio 2662 mg/g CRE (0-200)
[2023-07-02 11:14] LABS: Anion Gap 8 (5-15); BUN 20 mg/dL (7-18); BUN/Creat Ratio 18.7 RATIO (10-20); Calcium,Total 8.9 mg/dL (8.5-10.1); Chloride 112 mmol/L (98-107); Cholesterol 145 mg/dL (200); Creatinine, Serum 1.07 mg/dL (0.55-1.02); EST Glomerular Filtration Rate 52 mL/min (>60); Est Glom Filt Rate - Afr Amer 63 mL/min (>60); Glucose 98 mg/dL (74-106); High Density Lipoprotein 37 mg/dL; Potassium 4.1 mmol/L (3.5-5.1); Sodium Level 142 mmol/L (136-145); T4 Free Direct 0.94 ng/dL (0.76-1.46); Thyroid Stim Hormone (TSH) 5.41 uIU/mL (0.358-3.74); Triglycerides 139 mg/dL; Very Low Density Lipoprotein 28 mg/dL (5-40)
[2023-07-02 12:29] LABS: Vitamin B12 1389 pg/mL (211-911)
== END | disposition home or self-care (01) ==
LOC: LAB 09:57
PROVIDERS: PCP Family Medicine; Referring Provider Family Medicine; Visit Provider Family Medicine
DX: E03.9 Hypothyroidism, unspecified (principal); E11.319 Type 2 diabetes mellitus with unspecified diabetic retinopathy without macular edema; E53.8 Deficiency of other specified B group vitamins; I10 Essential (primary) hypertension
CPT/HCPCS: 36415; 80048; 80061; 82570; 82607; 84156; 84439; 84443; 85025

== ENCOUNTER → 2023-07-20 | Outpatient (CLI) | payer MEDICARE, SELFPAY ==
--- NOTE | 2023-07-20 09:19 | US_ITS ---
STUDY: SUPERFICIAL ULTRASOUND - PALPABLE LUMP OVERLYING THE RIGHT SCAPULAR REGION. REASON FOR EXAM: Female, 78 years old. LIPOMA TECHNIQUE: A superficial ultrasound was performed with real-time and static sparrow-scale imaging. COMPARISON: None. FINDINGS: Sonographic imaging was obtained. No sonographic abnormality is seen. US/Ext Non Vasc Limited/Soft Tiss IMPRESSION: No sonographic abnormality is seen. Electronically Signed: Nic Bland MD at 12:57 EDT ,
== END | disposition home or self-care (01) ==
PROVIDERS: PCP Family Medicine; Referring Provider Family Medicine; Visit Provider Family Medicine
DX: M25.511 Pain in right shoulder (principal)
CPT/HCPCS: 76882

== ENCOUNTER → 2023-07-27 | Outpatient (CLI) | payer MEDICARE, SELFPAY ==
[2023-07-27 10:08] LABS: Absolute Neutrophil Count 2.3 X10^3/uL (2.0-7.7); Basophil# 0.05 X10^3/uL; Basophil% 1.4 % (0-1); Eosinophil# 0.19 X10^3/uL; Eosinophils% 5.4 % (0-5); Hematocrit 31.8 % (37-47); Hemoglobin 10.1 g/dL (12.0-15.0); Lymphocyte % 17.2 % (19-41); Mean Corp Hgb Conc 31.8 g/dL (32-36); Mean Corpuscular Hgb 30.2 pg (27.0-32.0); Mean Corpuscular Volume 95.2 fL (81-99); Monocyte# 0.35 X10^3/uL; NRBC Flagged by Analyzer 0 % (0-5); Neutrophil # 2.28 X10^3/uL (2.7-7.7); Neutrophil % 65.4 % (47-70); POSITIVE DIFFERENTIAL YES; Platelet Count 133 K/mm3 (150-450); RBC Distribution Width CV 14.2 % (11.6-14.6); RBC Distribution Width SD 48.6 fl (35.1-43.9); Red Blood Count 3.34 M/mm3 (4.2-5.4); White Blood Count 3.5 K/mm3 (4.4-11.0)
[2023-07-27 10:42] LABS: Vitamin B12 745 pg/mL (211-911)
[2023-07-27 11:56] LABS: Ferritin 21 ng/mL (8-252); Iron 40 ug/dL (50-170); Iron Binding Capacity,Total 392 ug/dL (250-450); PERCENT IRON SATURATION 10.2 % (15.0-55.0)
== END | disposition home or self-care (01) ==
LOC: LAB 09:24
PROVIDERS: PCP Family Medicine; Referring Provider Family Medicine; Visit Provider Family Medicine
DX: D64.9 Anemia, unspecified (principal); E53.8 Deficiency of other specified B group vitamins
CPT/HCPCS: 36415; 82607; 82728; 82746; 83540; 83550; 85025

== ENCOUNTER 2023-10-26 10:00 | Outpatient (RCR) | payer MEDICARE, SELFPAY ==
--- NOTE | 2023-10-07 11:17 | HP.PTEVAL ---
Patient's Visit Information Visit Information Visit Information: RAOUL ANGELES is a 78 year old F referred to Physical Therapy by Dr. Surendra Hidalgo MD with a diagnosis of . Date of Evaluation: 10/07/23 Physical Therapist: Arya Cunningahm, DPT, OCS, CSCS Visit Plan Frequency: 3x /Week Duration: 4-6 Weeks Plan: 3x/week for 3-6 weeks to teach HEP for LE and core strength adn work to I, include R weigh shifts and narrow JACIEL balance and funcitonal strength of R foot flat sit to stand. may do gym once I with HEp with list and pics. Stretch L gstroc. Subjective Subjective: Has been in here for legs in the past. They were weak and got stronger. has post polio and R leg has been weaker. been a few years since therapy adn stroke was in August of 2021. Legs feel weaker. Activities are limited in that she has a fear of falling. Wh walker is not needed but it helps her be upright and feel safer. used it since stroke. Doctor Rocky is neuro and has been really tired lately without reason adn as lethargic and sitting alot. Doctor thinks sedentarism plays a part although she is anemic. Is on thyroid meds and B12 and iron adn vitamin C which help her stay awake as she used to get up at 10 and sleep til 4. That went on for a year and half. Stroke effected L side. Basic ADLs are done without help, Lip on shower she can do but avoids it due to fear. Steps at home to basement only and can go down them to sewing room but weakness causes her to do it with L leg only Has a good banister. Hobbies: sewing and goes down a couple times per week . No regular exercises except for sciatica some LB ROM. Employed: no Objective Objective: R polio leg is atrophied adn smaller and weaker than L. Walks in with rollator I with good gait pattern. Can walk without AD but unsafe adn less steady, less weight shift and stance time on R. Trasnfers chair nad bed I, On r toes with very little WB exxitting chair with and without UE until VC. Steps using one rail and left only due to weakness in R. hip strength 3+ R hip abd, ext, flexion and 4- L. knee ext adn flexion 4- L and 3+ R. ankle poor movmement on R -8 Df and very tight(has been this way her whole life, used to have brace but no longer) 10 inv anad 5 eversion and strength 3/5, L side is 4- with ROM WFL. reflexes 0/3 R patella and achilles and 2/3 L. sensation less on R side to gross light touch particularly distal laterally. LB aROM mod limited all directions without pain. Balance/Special Test Scores Functional Gait Assessment Score: 21 % Disability: 30.0000 Lower Extremity Functional Score: 36 TUG Test Time Seconds: 14 30 Second Chair Rise Test Seconds: 9 Goals Goal 1:: FGA to limit fall risk Goal Time Frame: 4-6 Weeks Goal 2:: Pt feel 75% stronger in LE adn I management of HEP Goal Time Frame: 4-6 Weeks Goal 3:: LEFS score 45 Goal Time Frame: 4-6 Weeks Goal 4:: 12 on 30 SSTS Goal Time Frame: 4-6 Weeks Anticipated Interventions Patient/Client Instruction: Educate patient on: Condition and Plan of Care For the Purpose of:: To improve muscle performance and motor function and To increase tolerance to activity/condition/position Therapeutic Exercise to Include: Strength training, Postural training and Active ROM For the Purpose of:: To increase oxygenation perfusion, To increase tolerance to activity/condition/position, To improve gait and locomotor functions and To improve safety Text: Thank you for the opportunity to evaluate your patient. For Medicare and Medicare HMO plans, please review the plan of care and approve it. It will need to be FAXED BACK to us at [phone] for Medicare purposes. For Medicare only, by signing this I certify the plan of care. Please let me know if there are questions or concerns regarding this plan of care. Physician Signature: Date:
== END 2023-10-26 19:00 | disposition home or self-care (01) ==
LOC: PT 10:00
PROVIDERS: PCP Family Medicine; Referring Provider Psychiatry & Neurology Neurology; Visit Provider Psychiatry & Neurology Neurology
DX: G14 Postpolio syndrome (principal); R53.81 Other malaise
CPT/HCPCS: 97110; 97161; 97530

== ENCOUNTER → 2023-11-03 | Outpatient (CLI) | payer MEDICARE, SELFPAY ==
[2023-11-03 12:37] LABS: Absolute Lymphocyte Count 0.53 X10^3/uL (0.83-4.51); Absolute Neutrophil Count 2.2 X10^3/uL (2.0-7.7); Basophil# 0.04 X10^3/uL; Basophil% 1.3 % (0-1); Eosinophil# 0.09 X10^3/uL; Eosinophils% 2.9 % (0-5); Hematocrit 38.5 % (37-47); Hemoglobin 12.8 g/dL (12.0-15.0); Lymphocyte # 0.53 X10^3/ul (0.83-4.51); Lymphocyte % 17.1 % (19-41); Mean Corp Hgb Conc 33.2 g/dL (32-36); Mean Corpuscular Hgb 31.6 pg (27.0-32.0); Mean Corpuscular Volume 95.1 fL (81-99); Mean Platelet Vol. 11.4 fl (6.2-12.0); Monocyte# 0.24 X10^3/uL; Monocyte% 7.7 % (0-10); NRBC Flagged by Analyzer 0 % (0-5); Neutrophil # 2.18 X10^3/uL (2.7-7.7); Neutrophil % 70.4 % (47-70); POSITIVE DIFFERENTIAL YES; Platelet Count 125 K/mm3 (150-450); RBC Distribution Width CV 14.5 % (11.6-14.6); RBC Distribution Width SD 50.6 fl (35.1-43.9); Red Blood Count 4.05 M/mm3 (4.2-5.4); White Blood Count 3.1 K/mm3 (4.4-11.0)
[2023-11-03 12:56] LABS: Vitamin B12 807 pg/mL (211-911)
== END | disposition home or self-care (01) ==
LOC: LAB 11:57
PROVIDERS: PCP Family Medicine; Referring Provider Family Medicine; Visit Provider Family Medicine
DX: E53.8 Deficiency of other specified B group vitamins (principal); E03.8 Other specified hypothyroidism
CPT/HCPCS: 36415; 82607; 84443; 85025

== ENCOUNTER 2024-01-04 06:54 | Day surgery (SDC) | payer MEDICARE, SELFPAY ==
[2024-01-04] VITALS (8 sets, daily range): BP systolic 109–178; BP diastolic 50–78; PULSE 67–75; RESP 16–18; TEMP 36.1–36.6; O2SAT 95–100; BMI 28.8
--- NOTE | 2024-01-04 07:40 | PCM.HP.BLA ---
History and Physical Date of Admission: 01/04/24 Chief Complaint: dysphagia, anemia Details: RAOUL ANGELES, is a 78 F who presents to the office today for establishment with [facility]. Pt has a PMHx of chronic renal failure, anemia, diabetic retinopathy, carotid artery stenosis, PAD and pancytopenia. Pt was referred here from hematology due to occasional problems with swallowing and chronic iron deficiency anemia. She tells me she will have episodes of choking on food up to 3x per week. She will choke on both solids and liquids. Her most recent episode of while eating a taiwanese fernandez. She is not too concerned about these symptoms but wanted to be evaluated. She does take oral iron so her stools are dark. She would not be able to tell if she had blood in her stool. She was struggling with diarrhea in the past but the iron has fixed that. Her last colonoscopy was probably [address] Dang and she reports it was normal. She does not recall ever having an EGD. ROS Const Constitutional: Positive for fatigue; No anorexia, fever(s), weight change or sleep problems Eyes Eyes: No change in vision ENT ENT: Positive for difficulty swallowing; No abnormal hearing, mouth lesions, tongue swelling or throat swelling Resp Respiratory: No cough or shortness of breath Cardio Cardiology: No chest pain at rest, chest pain with exertion, shortness of breath or dyspnea on exertion Gastro GI: Positive for difficulty swallowing Genitourinary-Female: No difficulty urinating or burning urination Musc Musculoskeletal: No joint pain, joint swelling, muscle weakness or decreased muscle mass Skin Skin: No hair loss in leg, yellowing of the eye, itchy eyes, rash, skin ulcer or skin swelling Neuro Neurology: No abnormal hearing, abnormal movements, confusion, unsteady gait/balance or memory loss Psych Psychiatric: No anxiety, No confusion and No memory loss Endo Endocrine: Positive for fatigue; No weight change Aller/Imm Allergy/Immunologic: No itchy eyes, throat swelling or tongue swelling Tyson/Lymp Hematologic/Lymphatic: No easy bleeding, easy bruising or enlarged lymph nodes Exam Const General: cooperative and comfortable Nutritional Appearance: average body habitus and well nourished HENMT Head: normal to inspection Ears: hearing grossly normal bilaterally Nose: external nose normal Face and sinus: normal facial exam Eyes General: appearance normal, both eyes and all related structures Neck Neck: normal visual inspection Chest Chest palpation & inspection: normal inspection of the chest Resp Effort & Inspection: normal respiratory effort GI Inspection: normal to inspection Palpation: no hepatosplenomegaly Skin General: no rashes or lesions noted Neuro General: patient alert Extrem General: normal to inspection Psych Affect: normal affect Assessment and Plan Assessment and Plan (1) Dysphagia: Status: Acute Plan: Pt is an 78 yo female presenting today for episodes of dysphagia to both solids and liquids. She has choking episodes up to 3x per week. She does not feel this is concerning. She has never had an EGD. She does not have alarm signs or symptoms such as weight loss, fever or blood in her stool. She has been persistently anemic for some time now and has been seeing heme/onc. She will need to undergo EGD to rule out UGI bleeding from inflammation, ulcers or AVMs. She does not wish to have a colonoscopy. The most common source of GI bleeding is typically the UGI tract therefore I will not recommend colonoscopy at this time. She is agreeable to this. -EGD -Pt will probably need PPI therapy in the future but will hold off until scope -Consider colonoscopy in the future -F/u as needed (2) Iron deficiency anemia: Status: Chronic Qualifiers: Iron deficiency anemia type: chronic blood loss Qualified Code(s): D50.0 - Iron deficiency anemia secondary to blood loss (chronic) I have examined the patient and the H&P has been reviewed. There are no clinical changes since date of exam.
--- NOTE | 2024-01-04 07:49 | PRE.ANES_ITS ---
ASA Classification* ASA Classification ASA Classification: 3 Assessment & Plan Anesthesia* Anesthesia Assessment Anesthesia Assessment: Discussed sedation and/or anesthesia options, risks, benefits, and alternatives with patient/parents/legal guardian/POA. Questions invited. The patient/parents/legal guardian/POA seems to understand and agrees to proceed with anesthesia plan. Reviewed the physical assessment, medical history, allergy history and patient home medications list prior to surgery/procedure/anesthetic and documented any changes. Performed airway and anesthesia risk assessments. Anesthesia Type Anesthesia Type: MAC Anesthesia Focused Assessment* Temperature: 97.8 F Pulse Rate: 75 Blood Pressure: 178/50 Respiratory Rate: 16 Pulse Ox: 100 Airway Assessment Mouth opens: >3 cm Mallampati Score: II Focused Labs Anesthesia Preop lab: CBC WBC 3.3 K/mm3 (4.4-11.0) L 11/18/23 13:20 RBC 4.11 M/mm3 (4.2-5.4) L 11/18/23 13:20 Hgb 12.8 g/dL (12.0-15.0) 11/18/23 13:20 Hct 38.2 % (37-47) 11/18/23 13:20 Plt Count TNP 11/18/23 13:20 CHEMISTRY Potassium 4.2 mmol/L (3.5-5.1) 11/18/23 13:20 Sodium 140 mmol/L (136-145) 11/18/23 13:20 BUN 18 mg/dL (7-18) 11/18/23 13:20 Creatinine 1.18 mg/dL (0.55-1.02) H 11/18/23 13:20 Glucose 172 mg/dL (74-106) H 11/18/23 13:20 POC Glucose 292 mg/dL (74-106) H 09/10/21 11:14 TSH 2.870 uIU/mL (0.358-3.740) 11/03/23 11:59 COAG PT 14.7 SECONDS (11.7-14.9) 09/09/21 12:00 Pre-Assessment Diagnosis/Proposed Procedure Planned Operative Procedure(s): EGD Anesthesia History 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 When Was Last Pacemaker Check QUESTION #4 FULL TEXT: You/Your Family Experience fever (hyperthermia) with Anesthesia Last Oral Intake Last Oral intake: Last Oral Intake NPO since 18:30 01/04/24 07:29 Meds taken in AM with sips of No 01/04/24 07:29 water? Meds patient instructed to take am of surgery PONV PONV - printing manager: PONV - printing manager Female Yes 12/31/23 10:03 HX of Motion Sickness No 12/31/23 10:03 HX of N/V After Surgery No 12/31/23 10:03 Non-Smoker Yes 12/31/23 10:03 Duration of Surgery greater No 12/31/23 10:03 than 60 minutes Number of Risk Factors 2 12/31/23 10:03 PONV Score Moderate Risk 12/31/23 10:03 Height & Weight Height & Weight: Anesthesia: Height & Weight Height 5 ft 1 in 01/04/24 07:29 Weight: 69.2 kg 01/04/24 07:29 Body Mass Index (BMI) 28.8 01/04/24 07:29 Respiratory Assessment Respiratory Assessment - printing manager: Respiratory Tract Infection Hx - printing manager Hx Respiratory Tract Infection No 12/31/23 10:03 STOP Sleep Apnea STOP Sleep Apnea - printing manager: STOP Sleep Apnea - printing manager Hx Hypertension Yes: ON MEDS 12/31/23 10:03 Hx Sleep Apnea No 12/31/23 10:03 CPAP BIPAP Do you snore loudly (louder No 12/31/23 10:03 than talking or can be heard Do you often feel tired/ No 12/31/23 10:03 fatigued/ sleepy during daytime? Has anyone observed you stop No 12/31/23 10:03 breathing during sleep? STOP Results Negative 12/31/23 10:03 QUESTION #5 FULL TEXT : Do you snore loudly (louder than talking or can be heard through closed doors)? 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 Specify any problems Hx of Preganancy in last 3 No 12/31/23 10:03 Months Nurse Filling Out Transfusion [email or web address] 12/31/23 10:03 & Questions: Date: 12/31/23 12/31/23 10:03 Time: 10:09 12/31/23 10:03 Patient unable to answer at this time (ie. confused, unrespo /Reproduction History /Reproductive History - printing manager: /Reproductive Hx- printing manager Hx Now Gestational Age (in weeks): EDC: Hx Hx Para Hx Section SAB PFSH Medical History Wears glasses Thyroid disease Low iron History of echocardiogram Walker as ambulation aid Dysphagia Pancytopenia Chronic renal failure Iron deficiency anemia TIA (transient ischemic attack) Thalamic infarct, acute Diabetic retinopathy Anemia Stroke Shingles Neuropathy High cholesterol Cataracts, bilateral Arthritis Kidney stones GERD (gastroesophageal reflux disease) Rosacea Post-polio syndrome History of poliomyelitis HTN (hypertension) Diabetes mellitus Home Medications ?Medication ?Instructions ?Recorded ?Last Taken ?Type atorvastatin 40 mg tablet 40 mg PO QHS #30 tabs 09/10/21 Unknown Rx losartan 100 mg tablet 100 mg PO DAILY 05/07/22 Unknown History miscellaneous medical supply #2 ea 07/17/22 Unknown Rx glipizide 5 mg tablet 5 mg PO DAILY diabetes 08/05/23 Unknown History insulin glargine 100 unit/mL (3 24 unit subcut BID dm 08/05/23 Unknown History mL) subcutaneous pen (Lantus Solostar U-100 Insulin) ketoconazole 2 % shampoo 1 applic topical 3XW PRN PER 08/05/23 Unknown History metformin 500 mg tablet 500 mg PO BID diabetes 08/05/23 Unknown History acetaminophen 500 mg tablet 1,000 mg PO Q6H PRN pain 08/19/23 Unknown History (Tylenol Extra Strength) aspirin 81 mg tablet,delayed 81 mg PO DAILY 08/19/23 12/31/23 History release (Adult Low Dose Aspirin) ascorbic acid (vitamin C) 500 mg 500 mg PO DAILY 09/29/23 Unknown History capsule cyanocobalamin (vitamin B-12) 1,000 mcg PO DAILY 09/29/23 Unknown History 1,000 mcg capsule ferrous sulfate 325 mg (65 mg 325 mg PO DAILY 09/29/23 12/31/23 History iron) tablet amlodipine 10 mg tablet 10 mg PO DAILY 12/31/23 Unknown History gabapentin 100 mg capsule 100 mg PO QHS 12/31/23 Unknown History levothyroxine 50 mcg tablet 50 mcg PO DAILY 12/31/23 Unknown History Allergy/AdvReac Type Severity Reaction Status Date / Time Sulfa (Sulfonamide Allergy Unknown Hives Verified 01/04/24 07:28 Antibiotics) adhesive tape AdvReac Intermediate Rash Verified 01/04/24 07:28 latex AdvReac skin Verified 01/04/24 07:28 reaction Family History Father Diabetes Hypertension High cholesterol Angina at rest Heart disease Kidney disease Mother Bowel disease Grandmother CVA (cerebral vascular accident) Aunt CVA (cerebral vascular accident) Surgical History Cataract Gallstones Hx of lithotripsy Social History household members: spouse current occupational status: retired Smoking Status: Never smoker second hand exposure: No alcohol intake: never substance use type: does not use caffeine: Yes Type: coffee Number of servings: 1 what type of physical activity do you participate in: other frequency: 1-2 times per week elijah/confucianist: Adventist seatbelt use: always Review of Systems (Anesthesia) ROS Narrative System reviewed and no additional complaints, except as documented.
[2024-01-04 07:52] LABS: Bedside Glucose 99 mg/dL (74-106)
--- NOTE | 2024-01-04 08:00 | EGD_PTH ---
PATIENT: RAOUL ANGELES LOC: EN U#:[id number] AGE/SX: 78/F ROOM: RE01/04/[address]: Dr. Moy Ramos DO : 1945 BED: DIS: 01/04/2024 SPEC #: [id number] RECD: 01/04/24 10:21 STATUS: EDIS RELewis #: [id number] VANESSA: 01/04/24 08:[address]: Moy Ramos DEPT: SURGICAL PATHOLOGY RECD BY: Tamera Mancera ENTERED: 01/04/24 11:23 SP TYPE: EGD BIOPSY OT DR: Dr. Desiree Tapia MD Tissues: A - Duodenum, NOS B - Gastric mucous membrane Procedures: Surgery Specimen Level IV HEADER OPERATION: EGD with biopsy, hemostasis PRE-OP DIAGNOSIS: Anemia, dysphagia TISSUE SUBMITTED: A- Duodenum biopsy, B- Gastric body biopsy MICROSCOPIC DIAGNOSIS A. Duodenum, biopsy: Minimal non-specific chronic inflammation. B. Gastric body, biopsy: Chronic inflammation. See comment. AM. 01/05/2024 COMMENT B. The results of immunohistochemistry for Helicobacter pylori will be reported separately ([id number]). MICROSCOPIC DESCRIPTION Slides are reviewed. GROSS DESCRIPTION A. Received in fixative is one container labeled with the patient's name and designated Duodenum biopsy. The specimen consists of one irregular fragment of light carlson soft tissue that measures 0.5 x 0.5 x 0.1 cm. The specimen is totally submitted in one cassette. B. Received in fixative is one container labeled with the patient's name and designated Gastric body biopsy. The specimen consists of two irregular fragments of light carlson soft tissue that in aggregate measure 0.6 x 0.5 x 0.1 cm. The specimen is totally submitted in one cassette. AM. 01/04/2024 TC:3 CPT:00882x0
--- NOTE | 2024-01-04 08:00 | IMM_PTH ---
PATIENT: RAOUL ANGELES LOC: EN U#:[id number] AGE/SX: 78/F ROOM: RE01/04/[address]: Dr. Moy Ramos DO : 1945 BED: DIS: 01/04/2024 SPEC #: [id number] RECD: 01/04/24 11:19 STATUS: EDIS REQ #: [id number] VANESSA: 01/04/24 08:[address]: Moy Ramos DEPT: IMMUNOHISTOCHEMISTRY RECD BY: Yosef Marshall ENTERED: 01/04/24 11:19 SP TYPE: IMMUNO OTHR DR: Dr. Desiree Tapia MD Tissues: B - Gastric mucous membrane Procedures: H Pylori (initial) PHYSICIAN & INSTITUTION [place] [id number] SPECIMEN INFORMATION: Tissue Source: B- Gastric body biopsy Clinical Info: Anemia, dysphagia Specimen Number: [id number] CPT code: 28876 METHODOLOGY: Deparaffinized sections of prefer/formalin-fixed tissue or PAP/DQ stained slides are incubated with monoclonal/polyclonal antibodies/oligonucleotide probes. Localization is made via biotin free immunoperoxidase method. Appropriate controls are performed and reacted as expected. Results on target cell population are indicated in the following table: RESULTS: ANTIBODY / CLONE RESULT Block B H Pylori (polyclonal) negative These tests were developed and their performance characteristics determined by [facility]. They may not have been cleared or approved by the U.S. Food and Drug Administration. The FDA has determined that such clearance or approval is not necessary. The above immunohistochemical/dualISH markers are ordered and reviewed by the Pathologist. INTERPRETATION: B. Gastric body, biopsy: Negative for Helicobacter pylori organisms. 01/05/2024
--- NOTE | 2024-01-04 08:32 | PCM.POST.ANE ---
Anesthesia: Postop Eval I Current Vital Signs Temperature: 97 F Pulse Rate: 67 Blood Pressure: 123/52 Respiratory Rate: 18 Pulse Ox: 95 Oxygen Delivery Method: Room Air Assessment Airway patent: Yes Spontaneous unlabored respirations: Yes Mental status: Asleep nausea: No Vomiting: No Anesthesia Complication: No Fluid Hydration Crystalloid volume administer (ml): 30 Total IV fluid infused: 30 Progress Note Anesthesia document: Postop Eval 1 completed: Yes
--- NOTE | 2024-01-04 08:34 | OP.CCLET_ITS ---
01/04/2024 Desiree Tapia [address] [place] [address] Re : Upper GI endoscopy procedure for Sandie Waggoner Dear Dr. Tapia This procedure was performed on Thursday, January 04, 2024. My impressions and recommendations are as follows: Impressions : - No endoscopic esophageal abnormality to explain patient's dysphagia. - Small hiatal hernia. - Chronic gastritis. Biopsied. - Erosive gastropathy with stigmata of recent bleeding. Treated with a heater probe. - Chronic duodenitis. Biopsied. Recommendations : - Discharge patient to home. - Resume previous diet. - Continue present medications except aspirin and vitamin C - Await pathology results. - Start omeprazole 40 mg p.o. twice daily x 12 weeks. My findings are described in the full procedure note, which is enclosed. If I can be of further assistance, please feel free to contact me at . Sincerely, Moy Ramos, 01/04/2024 8:34:07 AM This report has been signed electronically.
--- NOTE | 2024-01-04 08:34 | OP.EGD_ITS ---
Patient Name: Sandie Waggoner Procedure Date: 01/04/2024 8:12 AM Date of : 1945 Age: 78 Procedure: Upper GI endoscopy Indications: Iron deficiency anemia, Dysphagia Providers: Moy Ramos DO Referring MD: Desiree Tapia Medicines: Monitored Anesthesia Care Patient Profile: This is an 78 year old female. Refer to note in patient chart for documentation of history and physical. Patient has symptoms of chronic dysphagia and acute dyspepsia. Complications: No immediate complications. Procedure: Pre-Anesthesia Assessment: - Prior to the procedure, a History and Physical was performed, and patient medications and allergies were reviewed. The patient is competent. The risks and benefits of the procedure and the sedation options and risks were discussed with the patient. All questions were answered and informed consent was obtained. Patient identification and proposed procedure were verified by the physician in the pre-procedure area. Mental Status Examination: alert and oriented. Airway Examination: normal oropharyngeal airway and neck mobility. Prophylactic Antibiotics: The patient does not require prophylactic antibiotics. Prior Anticoagulants: The patient has taken no anticoagulant or antiplatelet agents except for NSAID medication. ASA Grade Assessment: II - A patient with mild systemic disease. After reviewing the risks and benefits, the patient was deemed in satisfactory condition to undergo the procedure. The anesthesia plan was to use monitored anesthesia care (MAC). Immediately prior to administration of medications, the patient was re-assessed for adequacy to receive sedatives. The heart rate, respiratory rate, oxygen saturations, blood pressure, adequacy of pulmonary ventilation, and response to care were monitored throughout the procedure. The physical status of the patient was re-assessed after the procedure. After obtaining informed consent, the endoscope was passed under direct vision. Throughout the procedure, the patient's blood pressure, pulse, and oxygen saturations were monitored continuously. The gastroscope was introduced through the mouth, and advanced to the second part of duodenum. The upper GI endoscopy was accomplished without difficulty. The patient tolerated the procedure well. Scope In: 8:18:29 AM Scope Out: 8:24:59 AM Total Procedure Duration Time 0 hours 6 minutes 30 seconds Findings: No endoscopic abnormality was evident in the esophagus to explain the patient's complaint of dysphagia. A small hiatal hernia was present. Diffuse moderate inflammation characterized by erosions, erythema and friability was found in the cardia, in the gastric fundus and in the gastric body. Biopsies were taken with a cold forceps for histology. Verification of patient identification for the specimen was done. Estimated blood loss was minimal. Biopsies were taken with a cold forceps for Helicobacter pylori testing. Verification of patient identification for the specimen was done. Estimated blood loss was minimal. A few localized 7 mm erosions with stigmata of recent bleeding were found in the gastric body and on the lesser curvature of the stomach. Coagulation for hemostasis using heater probe was successful. Estimated blood loss was minimal. Patchy moderate inflammation characterized by friability and granularity was found in the duodenal bulb and in the first portion of the duodenum. Biopsies were taken with a cold forceps for histology. Verification of patient identification for the specimen was done. Estimated blood loss was minimal. Impression: - No endoscopic esophageal abnormality to explain patient's dysphagia. - Small hiatal hernia. - Chronic gastritis. Biopsied. - Erosive gastropathy with stigmata of recent bleeding. Treated with a heater probe. - Chronic duodenitis. Biopsied. Recommendation: - Discharge patient to home. - Resume previous diet. - Continue present medications except aspirin and vitamin C - Await pathology results. - Start omeprazole 40 mg p.o. twice daily x 12 weeks. Procedure Code(s): --- Professional --- 99656, 59, Esophagogastroduodenoscopy, flexible, transoral; with control of bleeding, any method 88141, 51, Esophagogastroduodenoscopy, flexible, transoral; with biopsy, single or multiple CPT copyright 2021 [employer]. All rights reserved. The codes documented in this report are preliminary and upon remote coders review may be revised to meet current compliance requirements. Moy Ramos DO 01/04/2024 8:34:07 AM This report has been signed electronically. Number of Addenda: 0 Note Initiated On: 01/04/2024 8:12 AM
--- NOTE | 2024-01-04 09:22 | PCM.POSTANE2 ---
Anesthesia Postop Eval I Sum Postop Eval Completion status Anesthesia document: Postop Eval 1 completed: Yes Anesthesia Postop Eval I Summary Anesthesia Postop Eval I Summary: Anesthesia Postop Eval I: Assessment Summary Airway patent Yes 01/04/24 08:33 [email or web address] Spontaneous unlabored Yes 01/04/24 08:33 [email or web address] respirations Mental status Asleep 01/04/24 08:33 [email or web address] nausea No 01/04/24 08:33 [email or web address] Vomiting No 01/04/24 08:33 [email or web address] Anesthesia Postop Eval I: Fluid Summary Crystalloid volume administer 30 01/04/24 08:33 [email or web address] (ml) Colloids volume administered ( ml) Blood Product volume administered (ml) Total IV fluid infused 30 01/04/24 08:33 [email or web address] Anesthesia Postop Eval I: Summary Notes Anesthesia Complication No 01/04/24 08:33 [email or web address] Anesthesia Complication Comment: Post-operative progress note Anesthesia: Postop Eval II Evaluation Mental status: Awake Pain Level: 0 nausea: No Vomiting: No
== END 2024-01-04 09:13 | disposition home or self-care (01) ==
LOC: EN 06:54 → AC 06:55
PROVIDERS: PCP Family Medicine; Referring Provider Family Medicine; Visit Provider Internal Medicine Gastroenterology
PROC: 0DJ08ZZ Inspection of Upper Intestinal Tract, Via Natural or Artificial Opening Endoscopic (ICD-10-PCS; CPT 43235; principal; 2024-01-04 07:55)
DX: R13.10 Dysphagia, unspecified (principal); E11.22 Type 2 diabetes mellitus with diabetic chronic kidney disease; E11.42 Type 2 diabetes mellitus with diabetic polyneuropathy; E11.51 Type 2 diabetes mellitus with diabetic peripheral angiopathy without gangrene; Z79.4 Long term (current) use of insulin; K29.50 Unspecified chronic gastritis without bleeding; K29.80 Duodenitis without bleeding; K31.89 Other diseases of stomach and duodenum; K44.9 Diaphragmatic hernia without obstruction or gangrene; D50.0 Iron deficiency anemia secondary to blood loss (chronic); N18.9 Chronic kidney disease, unspecified; E78.00 Pure hypercholesterolemia, unspecified; Z79.82 Long term (current) use of aspirin; Z79.84 Long term (current) use of oral hypoglycemic drugs; Z79.899 Other long term (current) drug therapy
CPT/HCPCS: 43239; 43255; 82962; 88305; 88342; A4216; J2405

== ENCOUNTER → 2024-01-11 | Outpatient (CLI) | payer MEDICARE, SELFPAY | END | disposition home or self-care (01) | LOC: LABSPEC 13:26 | PROVIDERS: PCP Family Medicine; Referring Provider Family Medicine; Visit Provider Family Medicine | DX: R82.90 Unspecified abnormal findings in urine (principal) | CPT/HCPCS: 87077; 87086; 87088; 87186 ==

== ENCOUNTER → 2024-04-01 | Outpatient (CLI) | payer MEDICARE, SELFPAY ==
[2024-04-01 17:42] LABS: Absolute Lymphocyte Count 0.75 X10^3/uL (0.83-4.51); Absolute Neutrophil Count 3.8 X10^3/uL (2.0-7.7); Basophil# 0.06 X10^3/uL; Basophil% 1.2 % (0-1); Eosinophil# 0.14 X10^3/uL; Eosinophils% 2.7 % (0-5); Hematocrit 38.4 % (37-47); Hemoglobin 12.5 g/dL (12.0-15.0); Lymphocyte # 0.75 X10^3/ul (0.83-4.51); Lymphocyte % 14.6 % (19-41); Mean Corp Hgb Conc 32.6 g/dL (32-36); Mean Corpuscular Hgb 30.6 pg (27.0-32.0); Mean Corpuscular Volume 94.1 fL (81-99); Mean Platelet Vol. 11.8 fl (6.2-12.0); Monocyte# 0.36 X10^3/uL; NRBC Flagged by Analyzer 0 % (0-5); Neutrophil # 3.83 X10^3/uL (2.7-7.7); Neutrophil % 74.3 % (47-70); Platelet Count 148 K/mm3 (150-450); Red Blood Count 4.08 M/mm3 (4.2-5.4); White Blood Count 5.2 K/mm3 (4.4-11.0)
[2024-04-01 18:37] LABS: ALB/GLOB Ratio 0.7 RATIO (0.9-2.4); AST(SGOT) 37 U/L (15-37); Alanine Aminotransfer ALT/SGPT 35 U/L (13-56); Albumin, Serum 3.3 g/dL (3.2-5.0); Alkaline Phosphatase 129 U/L (45-117); Anion Gap 6 (5-15); BUN 23 mg/dL (7-18); BUN/Creat Ratio 17.4 RATIO (10-20); Calcium,Total 9.4 mg/dL (8.5-10.1); Chloride 108 mmol/L (98-107); Creatinine, Serum 1.32 mg/dL (0.55-1.02); EST Glomerular Filtration Rate 41 mL/min (>60); Est Glom Filt Rate - Afr Amer 50 mL/min (>60); Ferritin 34 ng/mL (8-252); Globulin 4.7 g/dL (2.2-4.2); Glucose 163 mg/dL (74-106); Iron 53 ug/dL (50-170); Iron Binding Capacity,Total 348 ug/dL (250-450); PERCENT IRON SATURATION 15.2 % (15.0-55.0); Potassium 4.5 mmol/L (3.5-5.1); Sodium Level 140 mmol/L (136-145)
[2024-04-01 19:25] LABS: Vitamin B12 550 pg/mL (211-911)
== END | disposition home or self-care (01) ==
LOC: BFHLAB 13:50
PROVIDERS: PCP Family Medicine; Visit Provider Family Medicine
DX: I12.9 Hypertensive chronic kidney disease with stage 1 through stage 4 chronic kidney disease, or unspecified chronic kidney disease (principal); N18.31 Chronic kidney disease, stage 3a; E03.8 Other specified hypothyroidism; E53.8 Deficiency of other specified B group vitamins; K21.9 Gastro-esophageal reflux disease without esophagitis; D64.9 Anemia, unspecified
CPT/HCPCS: 36415; 80053; 82607; 82728; 83540; 83550; 84443; 85025

== ENCOUNTER → 2024-04-19 | Outpatient (CLI) | payer MEDICARE, SELFPAY ==
--- NOTE | 2024-04-19 09:43 | CDU_ITS ---
Reason For Study Reason For Study: CAROTID STENOSIS Rt. Velocities/BP Lt. Velocities/BP Prox CCA 79.9/10.0 cm/sec. Prox CCA 107.6/13.0 cm/sec. Mid CCA 75.2/11.9 cm/sec. Mid CCA 113.7/14.2 cm/sec. Dist CCA 72.4/8.1 cm/sec. Dist CCA 95.3/13.0 cm/sec. Prox ICA 121.6/15.7 cm/sec. Prox ICA 120.5/23.9 cm/sec. Mid ICA 203.3/32.0 cm/sec. Mid ICA 92.0/17.3 cm/sec. Dist ICA 113.3/16.7 cm/sec. Dist ICA 176.0/20.5 cm/sec. Rt. ICA/CCA = 203.3/75.2=2.7. Lt. ICA/CCA = 176.0/113.7=1.5. Prox ECA 216.7/11.9 cm/sec. Prox ECA 138.1/13.0 cm/sec. Rt. Vert. 41.7/7.5 cm/sec. Lt. Vert. 72.8/12.3 cm/sec. Right Extracranial There is heterogeneous, irregular atherosclerotic plaque noted in the right common carotid artery. There is heterogeneous, irregular atherosclerotic plaque noted in the right internal carotid artery. There is homogeneous, smooth atherosclerotic plaque noted in the right external carotid artery. Antegrade flow is noted in the right vertebral artery. Left Extracranial There is heterogeneous, irregular atherosclerotic plaque noted in the left common carotid artery. There is heterogeneous, irregular atherosclerotic plaque noted in the left internal carotid artery. There is intimal thickening but no significant atherosclerotic plaque noted in the left external carotid artery. Antegrade flow is noted in the left vertebral artery. Procedure Carotid Duplex 00484. This is a Carotid Duplex examination using B-mode, color flow and specral Doppler. Exam performed in department. VL/Carotid Duplex Ultrasound Interpretation Summary Moderate (50-69%) stenosis right extracranial internal carotid. Moderate (50-69%) stenosis left extracranial internal carotid. Patent and antegrade vertebrals bilaterally. Ordering Physician: Haley Menard Referring Physician: Desiree Tapia Performed By: Janell Rubi, MICHAELLE, RVT
== END | disposition home or self-care (01) ==
LOC: CVS 09:42
PROVIDERS: PCP Family Medicine; Referring Provider Physician Assistant; Visit Provider Physician Assistant
DX: R09.89 Other specified symptoms and signs involving the circulatory and respiratory systems (principal); I65.29 Occlusion and stenosis of unspecified carotid artery
CPT/HCPCS: 93880

== ENCOUNTER → 2024-08-29 | Outpatient (CLI) | payer MEDICARE, SELFPAY ==
--- NOTE | 2024-08-29 13:43 | SP.MBSS_ITS ---
Modified Barium Swallow Patient Information Study Date: 08/29/24 Study Time: 13:00 Direct Billable Minutes: 78 Total Minutes procedure & reportin Diagnosis: Dysphagia R13.10 Referring Physician: Surendra Hidalgo Reason for Referral: The patient was referred for MBSS by neurologist, Dr. Hidalgo, due to pt reporting to him concerns for coughing/choking w/ foods, drinks, and even saliva. Swallowing difficulty occurs ~1X/week. She reports swallowing trouble >20 years w/ unremarkable MBSS ~20 years ago. Pt denies swallowing difficulty worsening after CVA in 2021. 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 Current Diet Ordered: Regular textures / Thin liquids Dentition: WNL and Natural Teeth Mental Status: WNL Respiratory Status: Oxygenating on Room Air Penetration-Aspiration Scale Penetration-Aspiration Scale: OBJECTIVE ASSESSMENT OF SWALLOW FUNCTION (QUANTITATIVE ? PER TRIAL): PENETRATION / ASPIRATION SCALE ([place]): 1 = does not enter airway 2 = enters airway/above vocal folds/ejected 3 = enters airway/above vocal folds/not ejected 4 = enters airway/contacts vocal folds/ejected 5 = enters airway/contacts vocal folds/not ejected 6 = enters airway/below vocal folds/ejected 7 = enters airway/below vocal folds/not ejected despite effort 8 = enters airway/below vocal folds/no effort VIDEOFLOROSCOPIC SCALE SCORE ([place]): Grade I = aspiration of material that has penetrated into the laryngeal vestibule, intact cough reflex Grade II = aspiration < 10 % of the bolus, intact cough reflex Grade III = aspiration of < 10 % of the bolus, reduced cough reflex or aspiration of > 10 % of the bolus, intact cough reflex Grade IV = aspiration of > 10 % of the bolus, reduced cough reflex Penetration-Aspiration Scale Score Thin Liquid via teaspoon: Result: 1= does not enter airway Thin Liquid via teaspoon Trial 2: Result: 1= does not enter airway Thin Liquid via sequential sips: cup: Result: 1= does not enter airway Comment: Esophageal screen - Mild retention in the lower esophagus w/ retrograde flow. [place] Thick Liquid via small single sip: cup: Result: 1= does not enter airway Pudding via teaspoon: Result: 1= does not enter airway Comment: Esophageal screen - Retention in the lower and middle esophagus. Thin Liquid via sequential sips:straw: Result: 1= does not enter airway Comment: Esophageal screen - Mild retention of liquids in the lower esophagus w/ retrograde flow. 1/2 Cookie: Result: 1= does not enter airway Comment: Esophageal screen - Minimal retention of cookie in the lower esophagus. Thin Liquid via single sip: straw: Result: 1= does not enter airway Oral Phase Labial Seal: No Labial Escape Tongue Control During Bolus Hold: Posterior escape of less than half of bolus Bolus Preparation/Mastication: Timely and efficient chewing and mashing Bolus Transport/Lingual Motion: Delayed initiation of tongue motion Oral Residue: Trace residue lining oral structures Pharyngeal Phase Initiation of Pharyngeal Swallow: Bolus head at posterior laryngeal surgace of epiglottis Soft Palate Elevation: Trace column of contrast/air between soft palate and pharyngeal wall Laryngeal Elevation: Comp. Superior move thyroid cart w/comp. apprx arytenoid cart-epig pet Anterior Hyoid Excursion: Complete anterior movement Epiglottic Movement: Complete inversion Laryngeal Vestibule Closure at Height of Swallow: Complete; no air/contrast in laryngeal vestibule Pharyngeal Stripping Wave: Present - complete Pharyngoesophageal Segment Opening: Parital distension and partial duration; pa rital obstruction of flow Tongue Base Retraction: Trace column of contrast between tongue base & post. pharyngeal wall Pharyngeal Residue: Trace residue within or on pharyngeal structures Esophageal Phase Esophageal Clearance: Esophageal retention w/ retrograde flow through pharyngoesophageal seg Diagnosis/Impression Diagnosis: Esophageal dysphagia R13.14; Oropharyngeal swallow function grossly WNL Impression: Oropharyngeal swallow function grossly WNL as compared to same-age peers. The esophageal phase is primarily marked by... -Trace retention in the UES w/ retrograde flow to the -Mild retention of liquids in the lower esophagus w/ retrograde flow. -Moderate retention of pudding in the middle and lower esophagus, which mostly cleared w/ liquid wash. -Minimal retention of cookie in the lower esophagus. Recommendations Diet: Regular Textures and Thin Liquids Compensatory Strategies: Small Bites, Small Sips, Slow Rate, Alternate bites/solids and sips/liquids (Take a sip after every 1-2 bites), Sitting upright and Remain sitting upright for 30 minutes after PO intake Recommend Repeat Modified Barium Swallow: No Need for Skilled Speech Therapy Services: No Recommended Referrals: GI Consult Education Completed: 1. Described result of evaluation. Status Active ST Patient: Active Contact Information [facility] Speech Therapy:: Mandie Pham M.A. CCC-MECHANICAL ENGINEER? Speech-Language Pathologist?? [facility] [address] [place] [address]? [email or web address]?? [phone]
== END | disposition home or self-care (01) ==
LOC: RAD 12:45
PROVIDERS: PCP Family Medicine; Referring Provider Psychiatry & Neurology Neurology; Visit Provider Psychiatry & Neurology Neurology
DX: R13.10 Dysphagia, unspecified (principal)
CPT/HCPCS: 74230; 92611

== ENCOUNTER → 2024-10-04 | Outpatient (CLI) | payer MEDICARE, SELFPAY ==
[2024-10-04 17:56] LABS: Hematocrit 28.0 % (37-47); Hemoglobin 8.3 g/dL (12.0-15.0); Immature Granulocytes Count 0.110 X10^3/uL (0.0-0.0); Mean Corp Hgb Conc 29.6 g/dL (32-36); Mean Corpuscular Volume 83.8 fL (81-99); Mean Platelet Vol. 11.9 fl (6.2-12.0); NRBC Flagged by Analyzer 0 % (0-5); Platelet Count 220 K/mm3 (150-450); RBC Distribution Width CV 14.9 % (11.6-14.6); RBC Distribution Width SD 45.2 fl (35.1-43.9); Red Blood Count 3.34 M/mm3 (4.2-5.4); White Blood Count 7.1 K/mm3 (4.4-11.0)
[2024-10-04 18:30] LABS: AST(SGOT) 29 U/L (<=31); Alanine Aminotransfer ALT/SGPT 21 U/L (<=34); Albumin, Serum 3.9 g/dL (3.4-4.8); Alkaline Phosphatase 122 U/L (35-104); Anion Gap 15 (5-15); BUN 18 mg/dL (4-19); BUN/Creat Ratio 13.8 RATIO (10-20); Calcium,Total 8.9 mg/dL (7.6-11.0); Carbon Dioxide 20.1 mmol/L (21.0-32.0); Chloride 107 mmol/L (98-108); Ferritin 14 ng/mL (22-378); Globulin 3.6 g/dL (2.2-4.2); Glucose 173 mg/dL (70-99); Iron 29 ug/dL (50-170); Iron Binding Capacity,Total 406 ug/dL (250-450); Iron Binding Capacity,Unsat 377 ug/dL (228-428); Potassium 4.1 mmol/L (3.3-5.1); Vitamin B12 536 pg/mL (180-914)
[2024-10-04 19:29] LABS: Creatinine, Urine (random) 163.00 mg/dL (28.00-217.00)
[2024-10-04 19:41] LABS: Microalbumin,Random Urine 533.0 mg/L (<20 mg/L)
== END | disposition home or self-care (01) ==
LOC: BFHLAB 13:46
PROVIDERS: PCP Family Medicine; Visit Provider Family Medicine
DX: I12.9 Hypertensive chronic kidney disease with stage 1 through stage 4 chronic kidney disease, or unspecified chronic kidney disease (principal); E11.22 Type 2 diabetes mellitus with diabetic chronic kidney disease; E11.319 Type 2 diabetes mellitus with unspecified diabetic retinopathy without macular edema; N18.31 Chronic kidney disease, stage 3a; E53.8 Deficiency of other specified B group vitamins; E03.8 Other specified hypothyroidism; K21.9 Gastro-esophageal reflux disease without esophagitis
CPT/HCPCS: 36415; 80053; 82043; 82570; 82607; 82728; 83540; 83550; 84443; 85025

== ENCOUNTER → 2024-10-21 | Outpatient (CLI) | payer MEDICARE, SELFPAY ==
[2024-10-21 09:24] LABS: Hematocrit 26.7 % (37-47); Hemoglobin 8.1 g/dL (12.0-15.0); Immature Granulocytes Count 0.020 X10^3/uL (0.0-0.0); Mean Corp Hgb Conc 30.3 g/dL (32-36); Mean Corpuscular Volume 83.7 fL (81-99); Mean Platelet Vol. 11.1 fl (6.2-12.0); NRBC Flagged by Analyzer 0 % (0-5); POSITIVE DIFFERENTIAL YES; Platelet Count 164 K/mm3 (150-450); RBC Distribution Width CV 17.2 % (11.6-14.6); RBC Distribution Width SD 51.8 fl (35.1-43.9); Red Blood Count 3.19 M/mm3 (4.2-5.4); White Blood Count 4.2 K/mm3 (4.4-11.0)
[2024-10-21 10:19] LABS: AST(SGOT) 28 U/L (<=31); Alanine Aminotransfer ALT/SGPT 12 U/L (<=34); Albumin, Serum 3.7 g/dL (3.4-4.8); Alkaline Phosphatase 97 U/L (35-104); Anion Gap 15 (5-15); BUN 21 mg/dL (4-19); BUN/Creat Ratio 15.6 RATIO (10-20); Calcium,Total 8.4 mg/dL (7.6-11.0); Carbon Dioxide 18.5 mmol/L (21.0-32.0); Chloride 107 mmol/L (98-108); Globulin 3.6 g/dL (2.2-4.2); Glucose 170 mg/dL (70-99); Potassium 3.9 mmol/L (3.3-5.1)
== END | disposition home or self-care (01) ==
LOC: LAB 08:59
PROVIDERS: PCP Family Medicine; Referring Provider Student in an Organized Health Care Education/Training Program; Visit Provider Student in an Organized Health Care Education/Training Program
DX: D50.0 Iron deficiency anemia secondary to blood loss (chronic) (principal)
CPT/HCPCS: 36415; 80053; 85025

== ENCOUNTER 2024-10-25 11:57 | Day surgery (SDC) | payer MEDICARE, SELFPAY ==
--- NOTE | 2024-10-21 12:28 | PAT.ANE_ITS ---
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 When Was Last Pacemaker Check QUESTION #4 FULL TEXT: You/Your Family Experience fever (hyperthermia) with Anesthesia Last Oral Intake Last Oral intake: Last Oral Intake NPO since Meds taken in AM with sips of water? Meds patient instructed to take am of surgery PONV PONV - senior product manager: PONV - senior product manager Female Yes 10/21/24 11:31 HX of Motion Sickness No 10/21/24 11:31 HX of N/V After Surgery No 10/21/24 11:31 Non-Smoker Yes 10/21/24 11:31 Duration of Surgery greater No 10/21/24 11:31 than 60 minutes Number of Risk Factors 2 10/21/24 11:31 PONV Score Moderate Risk 10/21/24 11:31 Height & Weight Height & Weight: Anesthesia: Height & Weight Height 5 ft 1 in 06/28/24 14:04 Respiratory Assessment Respiratory Assessment - senior product manager: Respiratory Tract Infection Hx - senior product manager Hx Respiratory Tract Infection No 10/21/24 11:31 STOP Sleep Apnea STOP Sleep Apnea - senior product manager: STOP Sleep Apnea - senior product manager Hx Hypertension Yes: CONTROLLED WITH MED 10/21/24 11:31 Hx Sleep Apnea No 10/21/24 11:31 CPAP BIPAP Do you snore loudly (louder Yes 10/21/24 11:31 than talking or can be heard Do you often feel tired/ Yes 10/21/24 11:31 fatigued/ sleepy during daytime? Has anyone observed you stop No 10/21/24 11:31 breathing during sleep? STOP Results Positive 10/21/24 11:31 QUESTION #5 FULL TEXT : Do you snore loudly (louder than talking or can be heard through closed doors)? 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 Specify any problems Hx of Preganancy in last 3 No 10/21/24 11:31 Months Nurse Filling Out Transfusion DSCHRIBER 10/21/24 11:31 & Questions: Date: 10/21/24 10/21/24 11:31 Time: 11:34 10/21/24 11:31 Patient unable to answer at this time (ie. confused, unrespo /Reproduction History /Reproductive History - senior product manager: /Reproductive Hx- senior product manager Hx Now No 10/21/24 11:31 Gestational Age (in weeks): EDC: Hx Hx Para Hx Section SAB No 10/21/24 11:31 PFSH Medical History (Updated 10/21/24 @ 11:55 by Cristina Martinez) Thyroid disease Post-menopausal Insulin dependent diabetes mellitus Ambulates with cane Low iron Anemia Skin tear Migraine headache DDD (degenerative disc disease), cervical Lightheadedness Dietary restriction Difficulty swallowing History of hiatal hernia History of GI bleed Non-smoker Shortness of breath on exertion Leg cramps History of pain when walking History of edema Cardiology follow-up encounter Heart murmur History of Holter monitoring Wears glasses Thyroid disease History of echocardiogram Walker as ambulation aid Pancytopenia Thalamic infarct, acute Diabetic retinopathy Stroke Shingles Neuropathy High cholesterol Arthritis GERD (gastroesophageal reflux disease) Rosacea Post-polio syndrome History of poliomyelitis HTN (hypertension) Home Medications ?Medication ?Instructions ?Recorded ?Last Taken ?Type atorvastatin 40 mg tablet 40 mg PO QHS #30 tabs Unknown Rx losartan 100 mg tablet 100 mg PO DAILY 05/07/22 Unk nown History miscellaneous medical supply #2 ea 07/17/22 Unknown Rx glipizide 5 mg tablet 5 mg PO DAILY diabetes 08/04 Unknown History ketoconazole 2 % shampoo 1 applic topical 3XW PRN PER 08/05/23 Unknown History metformin 500 mg tablet 500 mg PO BID diabetes 08/04 Unknown History amlodipine 10 mg tablet 10 mg PO DAILY 12/31/23 Unkn own History omeprazole 40 mg capsule,delayed 40 mg PO BID #60 caps 01/04/24 Unknown Rx release insulin glargine 100 unit/mL (3 18 unit subcut BID dm 04/19/24 Unknown History mL) subcutaneous pen (Lantus Solostar U-100 Insulin) aspirin 81 mg tablet,delayed 81 mg PO .QOD 10/21/24 Un known History release (Adult Low Dose Aspirin) ferrous fumarate 324 mg (106 mg 324 mg PO DAILY Unknown History iron) tablet gabapentin 100 mg capsule 100 mg PO QODAY 10/21/24 Unk nown History Allergy/AdvReac Type Severity Reaction Status Date / Time Sulfa (Sulfonamide Allergy Unknown Hives Verified 10/21/24 11:28 Antibiotics) adhesive tape AdvReac Intermediate Rash Verified 10/21/24 11:28 latex AdvReac skin Verified 10/21/24 11:28 reaction Family History Father Diabetes Hypertension High cholesterol Angina at rest Heart disease Kidney disease Mother Bowel disease Grandmother CVA (cerebral vascular accident) Aunt CVA (cerebral vascular accident) Surgical History (Updated 10/21/24 @ 11:49 by Cristina Martinez) History of esophagogastroduodenoscopy (EGD) Hx of colonoscopy Hx of right cataract extraction Hx of left cataract extraction Hx of lithotripsy Social History household members: spouse current occupational status: retired Smoking Status: Never smoker second hand exposure: No alcohol intake: never substance use type: does not use caffeine: Yes Type: coffee Number of servings: 1 what type of physical activity do you participate in: other frequency: 1-2 times per week elijah/taoist: Orthodoxy seatbelt use: always Audit: Pertinent Findings Pertinent Findings Additional pertinent findings: hgb 8.1, 04/20/2024 <69% bilat carotid stenosis Recommendation Anesthesia Recommendation Anesthesia recommendation: OPTIMIZED for anesthesia
[2024-10-25] VITALS (10 sets, daily range): BP systolic 118–157; BP diastolic 41–51; PULSE 71–80; RESP 16–18; TEMP 36.4–37.5; O2SAT 94–100; BMI 28.4
[2024-10-25] MEDS: Lactated Ringers 1,000 ML 15 ML IV (12:30)
--- NOTE | 2024-10-25 12:37 | PRE.ANES_ITS ---
ASA Classification* ASA Classification ASA Classification: 3 Assessment & Plan Anesthesia* Anesthesia Assessment Anesthesia Assessment: Discussed sedation and/or anesthesia options, risks, benefits, and alternatives with patient/parents/legal guardian/POA. Questions invited. The patient/parents/legal guardian/POA seems to understand and agrees to proceed with anesthesia plan. Reviewed the physical assessment, medical history, allergy history and patient home medications list prior to surgery/procedure/anesthetic and documented any changes. Performed airway and anesthesia risk assessments. Anesthesia Type Anesthesia Type: MAC History Source History Obtained from:: Patient and Chart Anesthesia Focused Assessment* Temperature: 99.5 F Pulse Rate: 80 Blood Pressure: 157/51 Respiratory Rate: 18 Pulse Ox: 100 Oxygen Delivery Method: Room Air Airway Assessment Mouth opens: >3 cm Mallampati Score: I Teeth Condition: Intact Neck Range of motion (ROM): Full ROM Labs Anesthesia Preop lab: CBC WBC 4.2 K/mm3 (4.4-11.0) L 10/21/24 09:05 10/21/24 RBC 3.19 M/mm3 (4.2-5.4) L 10/21/24 09:05 10/21/24 Hgb 8.1 g/dL (12.0-15.0) L 10/21/24 09:05 10/21/24 Hct 26.7 % (37-47) L 10/21/24 09:05 10/21/24 Plt Count 164 K/mm3 (150-450) 10/21/24 09:05 10/21/24 CHEMISTRY Potassium 3.9 mmol/L (3.3-5.1) 10/21/24 09:05 10/21/24 Sodium 141 mmol/L (133-145) 10/21/24 09:05 10/21/24 BUN 21 mg/dL (4-19) H 10/21/24 09:05 10/21/24 Creatinine 1.35 mg/dL (0.70-1.20) H 10/21/24 09:05 Glucose 170 mg/dL (70-99) H 10/21/24 09:05 10/21/24 POC Glucose 99 mg/dL (74-106) 01/04/24 07:18 01/04/24 TSH 4.760 uIU/mL (0.300-4.200) H 10/04/24 13:47 COAG PT 14.7 SECONDS (11.7-14.9) 09/09/21 12:00 Pre-Assessment Diagnosis/Proposed Procedure Planned Operative Procedure(s): EGD Anesthesia History 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 When Was Last Pacemaker Check QUESTION #4 FULL TEXT: You/Your Family Experience fever (hyperthermia) with Anesthesia Last Oral Intake Last Oral intake: Last Oral Intake NPO since 07:30 10/25/24 12:27 Meds taken in AM with sips of Yes 10/25/24 12:27 water? Meds patient instructed to amlodipine, losartan, 10/25/24 12:27 take am of surgery omeprazole PONV PONV - planishing hammer operator: PONV - planishing hammer operator Female Yes 10/21/24 11:31 HX of Motion Sickness No 10/21/24 11:31 HX of N/V After Surgery No 10/21/24 11:31 Non-Smoker Yes 10/21/24 11:31 Duration of Surgery greater No 10/21/24 11:31 than 60 minutes Number of Risk Factors 2 10/21/24 11:31 PONV Score Moderate Risk 10/21/24 11:31 Height & Weight Height & Weight: Anesthesia: Height & Weight Height 5 ft 1 in 10/25/24 12:27 Weight: 68.2 kg 10/25/24 12:27 Body Mass Index (BMI) 28.4 10/25/24 12:27 Respiratory Assessment Respiratory Assessment - planishing hammer operator: Respiratory Tract Infection Hx - planishing hammer operator Hx Respiratory Tract Infection No 10/21/24 11:31 STOP Sleep Apnea STOP Sleep Apnea - planishing hammer operator: STOP Sleep Apnea - planishing hammer operator Hx Hypertension Yes: CONTROLLED WITH MED 10/21/24 11:31 Hx Sleep Apnea No 10/21/24 11:31 CPAP BIPAP Do you snore loudly (louder Yes 10/21/24 11:31 than talking or can be heard Do you often feel tired/ Yes 10/21/24 11:31 fatigued/ sleepy during daytime? Has anyone observed you stop No 10/21/24 11:31 breathing during sleep? STOP Results Positive 10/21/24 11:31 QUESTION #5 FULL TEXT : Do you snore loudly (louder than talking or can be heard through closed doors)? Tobacco Use History Tobacco Use History - planishing hammer operator: Tobacco Use History - planishing hammer operator Tobacco Use Non-smoker 09/10/21 10:00 Smoking Status Never smoker 10/21/24 11:31 Hx Tobacco Use No 10/21/24 11:31 Years Smoking Packs Smoked per Day Smoking Cessation Date was within the last 15 years Hx Smoking Cessation Date Hx Smoking Cessation No: patient doesn't smoke 10/21/24 11:31 Counseling Hematologic Medial History Hematologic Hx - planishing hammer operator: Hematologic Medical Hx - verification clerk Hx of Blood Transfusion No 10/21/24 11:31 Hx of Transfusion in last 3 No 10/21/24 11:31 Months Date of Last Transfusion (if within last 3 months) Ever experience any problems No 10/21/24 11:31 with transfusion(s)? Specify any problems Hx of Preganancy in last 3 No 10/21/24 11:31 Months Nurse Filling Out Transfusion DSCHRIBER 10/21/24 11:31 & Questions: Date: 10/21/24 10/21/24 11:31 Time: 11:34 10/21/24 11:31 Patient unable to answer at this time (ie. confused, unrespo /Reproduction History /Reproductive History - planishing hammer operator: /Reproductive Hx- planishing hammer operator Hx Now No 10/21/24 11:31 Gestational Age (in weeks): EDC: Hx Hx Para Hx Section SAB No 10/21/24 11:31 Active Medications Active Medications: Current Medications Generic Name Dose Route Start Last Admin Trade Name Freq PRN Reason Stop Dose Admin Lactated Ringer's 1,000 mls @ 15 mls/hr 10/25/24 12:15 10/25/24 12:30 IV 15 mls/hr .Q48H MARLENE Administration PFSH Medical History (Updated 10/21/24 @ 11:55 by Cristina Martinez) Thyroid disease Post-menopausal Insulin dependent diabetes mellitus Ambulates with cane Low iron Anemia Skin tear Migraine headache DDD (degenerative disc disease), cervical Lightheadedness Dietary restriction Difficulty swallowing History of hiatal hernia History of GI bleed Non-smoker Shortness of breath on exertion Leg cramps History of pain when walking History of edema Cardiology follow-up encounter Heart murmur History of Holter monitoring Wears glasses Thyroid disease History of echocardiogram Walker as ambulation aid Pancytopenia Thalamic infarct, acute Diabetic retinopathy Stroke Shingles Neuropathy High cholesterol Arthritis GERD (gastroesophageal reflux disease) Rosacea Post-polio syndrome History of poliomyelitis HTN (hypertension) Home Medications ?Medication ?Instructions ?Recorded ?Last Taken ?Type atorvastatin 40 mg tablet 40 mg PO QHS #30 tabs Unknown Rx losartan 100 mg tablet 100 mg PO DAILY 05/07/22 07:30 History miscellaneous medical supply #2 ea 07/17/22 Unknown Rx glipizide 5 mg tablet 5 mg PO DAILY diabetes 08/04 Unknown History ketoconazole 2 % shampoo 1 applic topical 3XW PRN PER 08/05/23 Unknown History metformin 500 mg tablet 500 mg PO BID diabetes 08/04 Unknown History amlodipine 10 mg tablet 10 mg PO DAILY 12/31/2310/10 07:30 History omeprazole 40 mg capsule,delayed 40 mg PO BID #60 caps 01/04/24 10/25/24 07:30 Rx release insulin glargine 100 unit/mL (3 18 unit subcut BID dm 04/19/24 Unknown History mL) subcutaneous pen (Lantus Solostar U-100 Insulin) aspirin 81 mg tablet,delayed 81 mg PO .QOD 10/21/24 Un known History release (Adult Low Dose Aspirin) ferrous fumarate 324 mg (106 mg 324 mg PO DAILY Unknown History iron) tablet gabapentin 100 mg capsule 100 mg PO QODAY 10/21/24 Unk nown History Allergy/AdvReac Type Severity Reaction Status Date / Time Sulfa (Sulfonamide Allergy Unknown Hives Verified 10/25/24 12:26 Antibiotics) adhesive tape AdvReac Intermediate Rash Verified 10/25/24 12:26 latex AdvReac skin Verified 10/25/24 12:26 reaction Family History Father Diabetes Hypertension High cholesterol Angina at rest Heart disease Kidney disease Mother Bowel disease Grandmother CVA (cerebral vascular accident) Aunt CVA (cerebral vascular accident) Surgical History (Updated 10/21/24 @ 11:49 by Cristina Martinez) History of esophagogastroduodenoscopy (EGD) Hx of colonoscopy Hx of right cataract extraction Hx of left cataract extraction Hx of lithotripsy Social History household members: spouse current occupational status: retired Smoking Status: Never smoker second hand exposure: No alcohol intake: never substance use type: does not use caffeine: Yes Type: coffee Number of servings: 1 what type of physical activity do you participate in: other frequency: 1-2 times per week elijah/jew: Orthodoxy seatbelt use: always Review of Systems (Anesthesia) ROS Narrative System reviewed and no additional complaints, except as documented.
--- NOTE | 2024-10-25 12:47 | PCM.HP.STD ---
HPI - General General Date of Admission: 10/25/24 Date of Service: 11/16/24 Chief Complaint: Anemia HPI Narrative SANDIE ANGELES, is a 79 F who presents with the Chief Complaint: Anemia BGI established 11/26/2023 referred from hematology due to occasional problems with swallowing and chronic iron deficiency anemia. Patient with dysphagia episodes up to 3 times per week dysphagia is to solids and liquids last colonoscopy 15 years ago no history of EGD EGD 01/04/2024 No endoscopic esophageal abnormality to explain patient's dysphagia. - Small hiatal hernia. - Chronic gastritis. Biopsied. - Erosive gastropathy with stigmata of recent bleeding. Treated with a heater probe. - Chronic duodenitis. Biopsied. OV 10/21/24 patient seen by primary care provider who ordered blood work which showed a hemoglobin is 8.3 which prompted patient to make follow-up appointment. Patient having extreme fatigue and shortness of breath with exertion. Sometimes she is too tired to chew her food. Patient continues with omeprazole. She was started on iron 2 weeks ago. She denies black/tarry stool. [facility] Medical History Thyroid disease Post-menopausal Insulin dependent diabetes mellitus Ambulates with cane Low iron Anemia Skin tear Migraine headache DDD (degenerative disc disease), cervical Lightheadedness Dietary restriction Difficulty swallowing History of hiatal hernia History of GI bleed Non-smoker Shortness of breath on exertion Leg cramps History of pain when walking History of edema Cardiology follow-up encounter Heart murmur History of Holter monitoring Wears glasses Thyroid disease History of echocardiogram Walker as ambulation aid Pancytopenia Thalamic infarct, acute Diabetic retinopathy Stroke Shingles Neuropathy High cholesterol Arthritis GERD (gastroesophageal reflux disease) Rosacea Post-polio syndrome History of poliomyelitis HTN (hypertension) Home Medications ?Medication ?Instructions ?Recorded ?Last Taken ?Type atorvastatin 40 mg tablet 40 mg PO QHS #30 tabs 09/10/21 Unknown Rx losartan 100 mg tablet 100 mg PO DAILY 05/07/22 10/25/24 07:30 History miscellaneous medical supply #2 ea 07/17/22 Unknown Rx glipizide 5 mg tablet 5 mg PO DAILY diabetes 08/05/23 Unknown History ketoconazole 2 % shampoo 1 applic topical 3XW PRN PER 08/05/23 Unknown History metformin 500 mg tablet 500 mg PO BID diabetes 08/05/23 Unknown History amlodipine 10 mg tablet 10 mg PO DAILY 12/31/23 10/25/24 07:30 History omeprazole 40 mg capsule,delayed 40 mg PO BID #60 caps 01/04/24 10/25/24 07:30 Rx release insulin glargine 100 unit/mL (3 18 unit subcut BID dm 04/19/24 Unknown History mL) subcutaneous pen (Lantus Solostar U-100 Insulin) aspirin 81 mg tablet,delayed 81 mg PO .QOD 10/21/24 Unknown History release (Adult Low Dose Aspirin) ferrous fumarate 324 mg (106 mg 324 mg PO DAILY 10/21/24 Unknown History iron) tablet gabapentin 100 mg capsule 100 mg PO QODAY 10/21/24 Unknown History Allergy/AdvReac Type Severity Reaction Status Date / Time Sulfa (Sulfonamide Allergy Unknown Hives Verified 10/25/24 12:26 Antibiotics) adhesive tape AdvReac Intermediate Rash Verified 10/25/24 12:26 latex AdvReac skin Verified 10/25/24 12:26 reaction Family History Father Diabetes Hypertension High cholesterol Angina at rest Heart disease Kidney disease Mother Bowel disease Grandmother CVA (cerebral vascular accident) Aunt CVA (cerebral vascular accident) Surgical History History of esophagogastroduodenoscopy (EGD) Hx of colonoscopy Hx of right cataract extraction Hx of left cataract extraction Hx of lithotripsy Social History household members: spouse current occupational status: retired Smoking Status: Never smoker second hand exposure: No alcohol intake: never substance use type: does not use caffeine: Yes Type: coffee Number of servings: 1 what type of physical activity do you participate in: other frequency: 1-2 times per week elijah/mormonism: Buddhism seatbelt use: always ROS Constitutional Constitutional: Denies fatigue, fever(s), poor appetite, weight gain or weight loss Gastrointestinal Gastrointestinal: Denies belching, bloating, change in bowel habits, change in stool character, chewing difficulty, coffee ground emesis, constipation, cramping, diarrhea, dyspepsia, dysphagia, early satiety, excessive flatus, fecal incontinence, heartburn, hematemesis, hematochezia, hemorrhoids, loose stools, melena, nausea, odynophagia, rectal bleeding, tenesmus, vomiting or weight changes Vital Signs Vital Signs Vital Signs: 10/25/24 12:27 10/25/24 12:27 10/25/24 12:44 Temperature 99.5 F H 99.5 F H Temperature Source Temporal Pulse Rate 80 80 Respiratory Rate 18 18 Respiratory Pattern Normal Blood Pressure 157/51 H 157/51 H Blood Pressure Mean 86 Blood Pressure Source Monitor Blood Pressure Position Sitting Blood Pressure Location Right Arm Pulse Ox 100 100 Oxygen Delivery Method Room Air Room Air Weight Weight: 150 lb 5.684 oz Body Mass Index (BMI) 28.4 Physical Exam Const alert, oriented x3, no apparent distress and healthy appearing General Appearance: cooperative GI normal to inspection, nondistended, normoactive bowel sounds, soft to palpation, non-tender and non-distended Percussion: normal to percussion Rectal Exam: deferred Assessment & Plan Assessment/Plan (1) Anemia: (2) Dysphagia: PLAN: Assessment and Plan Assessment and Plan (1) Iron deficiency anemia: Status: Chronic Qualifiers: Iron deficiency anemia type: chronic blood loss Qualified Code(s): D50.0 - Iron deficiency anemia secondary to blood loss (chronic) Plan: Sandie is an 79-year-old female patient here today for evaluation of low hemoglobin. Patient last EGD in 2023 which showed erosive gastropathy that was bleeding and cauterized. Patient saw her primary care provider at the end of September 2024 and hemoglobin was ordered which was 8.3. Per chart, this is the lowest her hemoglobin has been since 2013. Patient endorsing extreme fatigue, lightheadedness and shortness of breath on exertion. Denying black or tarry stool. I have ordered repeat CBC and CM pending result may have to refer her to the ED. She was scheduled for EGD next week. She will continue PPI and iron in the meantime. - EGD - CBC - Continue PPI - Follow-up after procedure Orders: Orders CBC W/Diff, Automated Today D64.9 - Anemia, unspecified Comprehensive Metabolic Profil Today D50.0 - Iron deficiency anemia secondary to blood loss (chronic)
--- NOTE | 2024-10-25 13:52 | PCM.POST.ANE ---
Anesthesia: Postop Eval I Current Vital Signs Temperature: 98.3 F Pulse Rate: 71 Blood Pressure: 127/41 Respiratory Rate: 16 Pulse Ox: 96 Oxygen Delivery Method: Room Air Assessment Airway patent: Yes Spontaneous unlabored respirations: Yes Mental status: Awake and Calm nausea: No Vomiting: No Anesthesia Complication: No Fluid Hydration Crystalloid volume administer (ml): 300 Total IV fluid infused: 300 Progress Note Anesthesia document: Postop Eval 1 completed: Yes
--- NOTE | 2024-10-25 13:53 | OP.PROVAT_ITS ---
10/25/2024 Desiree Tapia [place] [id number] [address] Re : Upper GI endoscopy procedure for Sandie Waggoner Dear Dr. Tapia This procedure was performed on Friday, October 25, 2024. My impressions and recommendations are as follows: Impressions : - Normal esophagus. - A single non-bleeding angiodysplastic lesion in the stomach. Treated with a heater probe. - Three bleeding angiodysplastic lesions in the duodenum. Treated with a heater probe. - No specimens collected. Recommendations : - Discharge patient to home (ambulatory). - Capsule endoscopy - Abdominal u/s with elastography regarding liver disease - Continue present medications. My findings are described in the full procedure note, which is enclosed. If I can be of further assistance, please feel free to contact me at . Sincerely, Moy Friend, 10/25/2024 1:53:07 PM This report has been signed electronically.
--- NOTE | 2024-10-25 13:53 | OP.EGD_ITS ---
Patient Name: Sandie Waggoner Procedure Date: 10/25/2024 1:23 PM Date of : 1945 Age: 79 Procedure: Upper GI endoscopy Indications: Iron deficiency anemia Providers: Moy Ramos DO Medicines: Monitored Anesthesia Care Patient Profile: This is an 79 year old female. Refer to note in patient chart for documentation of history and physical. Patient has symptoms. Complications: No immediate complications. Procedure: Pre-Anesthesia Assessment: - Prior to the procedure, a History and Physical was performed, and patient medications and allergies were reviewed. The patient is competent. The risks and benefits of the procedure and the sedation options and risks were discussed with the patient. All questions were answered and informed consent was obtained. Patient identification and proposed procedure were verified by the physician in the pre-procedure area. Mental Status Examination: alert and oriented. Airway Examination: normal oropharyngeal airway and neck mobility. Respiratory Examination: clear to auscultation. CV Examination: normal. Prophylactic Antibiotics: The patient does not require prophylactic antibiotics. Prior Anticoagulants: The patient has taken no anticoagulant or antiplatelet agents. ASA Grade Assessment: II - A patient with mild systemic disease. After reviewing the risks and benefits, the patient was deemed in satisfactory condition to undergo the procedure. The anesthesia plan was to use monitored anesthesia care (MAC). Immediately prior to administration of medications, the patient was re-assessed for adequacy to receive sedatives. The heart rate, respiratory rate, oxygen saturations, blood pressure, adequacy of pulmonary ventilation, and response to care were monitored throughout the procedure. The physical status of the patient was re-assessed after the procedure. After obtaining informed consent, the endoscope was passed under direct vision. Throughout the procedure, the patient's blood pressure, pulse, and oxygen saturations were monitored continuously. The Endoscope was introduced through the mouth, and advanced to the fourth part of the duodenum. Small bowel enteroscopy was deemed necessary. The upper GI endoscopy was accomplished without difficulty. The patient tolerated the procedure well. Scope In: 1:35:52 PM Scope Out: 1:40:20 PM Total Procedure Duration Time 0 hours 4 minutes 28 seconds Findings: The examined esophagus was normal. A single 5 mm angiodysplastic lesion with no bleeding was found in the gastric body. Coagulation for hemostasis using heater probe was successful. Three 5 mm angiodysplastic lesions with bleeding were found in the third portion of the duodenum. Coagulation for hemostasis using heater probe was successful. Estimated blood loss was minimal. Impression: - Normal esophagus. - A single non-bleeding angiodysplastic lesion in the stomach. Treated with a heater probe. - Three bleeding angiodysplastic lesions in the duodenum. Treated with a heater probe. - No specimens collected. Recommendation: - Discharge patient to home (ambulatory). - Capsule endoscopy - Abdominal u/s with elastography regarding liver disease - Continue present medications. Procedure Code(s): --- Professional --- 14878, Small intestinal endoscopy, enteroscopy beyond second portion of duodenum, not including ileum; with control of bleeding (eg, injection, bipolar cautery, unipolar cautery, laser, heater probe, stapler, plasma gas plant worker) CPT copyright 2021 [employer]. All rights reserved. The codes documented in this report are preliminary and upon farmworker vegetable review may be revised to meet current compliance requirements. Moy Ramos DO 10/25/2024 1:53:07 PM This report has been signed electronically. Number of Addenda: 0 Note Initiated On: 10/25/2024 1:23 PM
--- NOTE | 2024-10-25 15:07 | PCM.POSTANE2 ---
Anesthesia Postop Eval I Sum Postop Eval Completion status Anesthesia document: Postop Eval 1 completed: Yes Anesthesia Postop Eval I Summary Anesthesia Postop Eval I Summary: Anesthesia Postop Eval I: Assessment Summary Airway patent Yes 10/25/24 13:53 [email or web address] Spontaneous unlabored Yes 10/25/24 13:53 [email or web address] respirations Mental status Awake,Calm 10/25/24 13:53 [email or web address] nausea No 10/25/24 13:53 [email or web address] Vomiting No 10/25/24 13:53 [email or web address] Anesthesia Postop Eval I: Fluid Summary Crystalloid volume administer 300 10/25/24 13:53 [email or web address] (ml) Colloids volume administered ( ml) Blood Product volume administered (ml) Total IV fluid infused 300 10/25/24 13:53 [email or web address] Anesthesia Postop Eval I: Summary Notes Anesthesia Complication No 10/25/24 13:53 [email or web address] Anesthesia Complication Comment: Post-operative progress note Anesthesia: Postop Eval II Evaluation Mental status: Awake and Calm Pain Level: 0 nausea: No Vomiting: No Complications Anesthesia Complication: No
--- OUTSIDE RECORDS SUMMARY | 2024-10-25 21:15 | XMS RPT_ITS | CCD ---
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 Desiree Tapia Primary Care Provider [phone] Dr. Kodak [place] Emergency Provider Dr. Arya Bartlett Admit Provider Dr. Arya Bartlett Attending Provider Dr. Arya Bartlett Other Provider Dr. Abdi Lee Attending Provider [phone] DESIREE TAPIA Attending Unavailable DESIREE TAPIA Primary Care Unavailable DESIREE TAPIA Referring Unavailable Dr. Desiree Tapia Primary Care Provider [phone] Dr. Desiree Tapia Referring Provider [phone] Surendra Hidalgo Attending Provider [phone] Dr. Arya Argueta Attending Provider [phone] Desiree Tapia Primary Care Provider [phone] Dr. Desiree Tapia Referring Provider Dr. Surendra iHdalgo Attending Provider [phone] Dr. Arya Argueta Attending Provider [phone] Surendra Hidalgo Referring Provider [phone] Surendra Hidalgo Other Provider Dr. Yadira Estrada Attending Provider [place] Attending Provider Dr. Desiree Tapia Primary Care Provider Dr. Desiree Tapia Referring Provider Dr. Surendra Hidalgo Attending Provider [phone] Dr. Desiree Tapia Primary Care Provider [phone] Desiree Tapia Referring Provider Dr. Surendra Hidalgo Attending Provider Dr. Arya Argueta Attending Provider [phone] Desiree Tapia MD Primary Care Provider Regina ANDERSON, Dr. Ramírez Referring Provider [phone] Richard BAILEY, Dr. Winter Attending Provider Richard BAILEY, Dr. Winter Other Provider [phone] Dr. Desiree Tapia MD Attending Provider [phone] Surendra Hidalgo MD Attending Provider [phone] Dr. Desiree Tapia MD Primary Care Provider Dr. Desiree Tapia MD Referring Provider [phone] Moy Ramos DO Attending Provider Dr. Moy Ramos DO Other Provider [phone] Dr. Desiree Tapia MD Attending Provider [phone] Surendra Hidalgo MD Attending Provider Haley Lobato Attending Provider [phone] Haley Lobato Referring Provider [phone] Ellie ANDERSON, Dr. Koenig Attending Provider [phone] Regina ANDERSON, Dr. Ramírez Primary Care Provider Dr. Desiree Tapia MD Referring Provider [phone] Regina ANDERSON, Dr. Ramírez Attending Provider [phone] Miguel Simon Attending Provider Regina ANDERSON, Dr. Ramírez Primary Care Provider Regina ANDERSON, Dr. Ramírez Referring Provider [phone] Rocky ANDERSON, Dr. Agosto Attending Provider Rocky ANDERSON, Dr. Agosto Referring Provider [phone] Regina ANDERSON, Dr. Ramírez Attending Provider [phone] Lesly Tuttle Attending Provider Miedel, Desiree Referring Unavailable Miedel, Desiree Primary Care Unavailable Surendra Hidalgo Attending Unavailable Miedel, Desiree Primary Care Unavailable Miedel, Desiree Referring Unavailable Jaziel Menardison Attending Unavailable Miedel, Desiree Referring Unavailable Moy Ramos Attending Unavailable Moy Ramos Consulting Unavailable Miedel, Desiree Primary Care Unavailable Miedel, Desiree Primary Care Unavailable Menard, Haley Referring Unavailable Menard, Haley Attending Unavailable Miedel, Desiree Referring Unavailable Mitali Pandya NP Attending Unavailable Miedel, Desiree Primary Care Unavailable Miedel, Desiree Referring Unavailable Lesly Hardwick Attending Unavailable Miedel, Desiree Primary Care Unavailable Arya Argueta Attending Unavailable Miedel, Desiree Primary Care Unavailable Menard, Haley Referring Unavailable Miedel, Desiree Primary Care Unavailable Miedel, Desiree Referring Unavailable Surendra Hidalgo Attending Unavailable Lilaedel, Desiree Primary Care Unavailable Surendra Hidalgo Referring Unavailable Surendra Hidalgo Attending Unavailable Miedel, Desiree Referring Unavailable Miedel, Desiree Attending Unavailable Miedel, Desiree Primary Care Unavailable Miedel, Desiree Attending Unavailable Miedel, Desiree Primary Care Unavailable Miedel, Desiree Primary Care Unavailable Surendra Hidalgo Referring Unavailable Surendra Hidalgo Attending Unavailable Moy Ramos Attending Unavailable Miedel, Desiree Primary Care Unavailable Miedel, Desiree Primary Care Unavailable Lesly Hardwick Referring Unavailable Lesly Hardwick Attending Unavailable Miedel, Desiree Primary Care Unavailable Miedel, Desiree Referring Unavailable Miguel Simon Attending Unavailable Miedel, Desiree Referring Unavailable Miedel, Desiree Primary Care Unavailable Lesly Hardwick Attending Unavailable Miedel, Desiree Referring Unavailable Miedel, Desiree Primary Care Unavailable Miedel, Desiree Attending Unavailable Miedel, Desiree Referring Unavailable FriendMoy Attending Unavailable Miedel, Desiree Primary Care Unavailable Miedel, Desiree Primary Care Unavailable Miedel, Desiree Attending Unavailable Miedel, Desiree Primary Care Unavailable Isckarus, Mansour Referring Unavailable Isckarus, Mansour Attending Unavailable Lesly Tuttle Referring Provider Friend Dr. Moy BAILEY Attending Provider Friend Dr. Moy BAILEY Other Provider [phone] Allergies Allergy Classification Reported Allergen(s) Allergy Type Date of Onset Reaction(s) Facility (17 sources) Adhesive Tape; Translations: [adhesive tape] Propensity to adverse reactions 2 Rash [facility] (17 sources) Sulfonamides (Antibiotic); Translations: [Sulfa (Sulfonamide Antibiotics)] Allergy to substance 2 Hives [facility] (8 sources) Latex Propensity to adverse reactions 5 skin reaction [facility] (1 source) Latex Drug allergy (disorder) 5 [facility] Repository Medications Current Medications Medication Drug Class(es) Dates Sig (Normalized) Sig (Original) amLODIPine 10 mg oral tablet (20 sources) Dihydropyridine Calcium Channel [place] Start: 12-31-2023 take 1 tablet by mouth once daily Amlodipine 10 mg tablet Active 10 mg PO DAILY December 31, 2023 1:00am Start: 02-20-2022 End: 12-31-2023 take 2 tablets by mouth at bedtime Amlodipine 5 mg tablet Discontinued 10 mg PO AT BEDTIME February 20, 2022 10:15am December 31, 2023 10:55am htn Start: 02-20-2022 take 10 mg by mouth at bedtime Amlodipine Active 10 MG PO AT BEDTIME February 20, 2022 9:15am Start: 08-18-2018 End: 02-20-2022 take 1 tablet by mouth at bedtime Amlodipine 5 MG tablet Discontinued 5 mg PO AT BEDTIME August 18, 2018 12:00am February 20, 2022 10:18am htn aspirin 81 mg delayed release oral tablet (20 sources) Platelet Aggregation Inhibitor, Nonsteroidal Anti-inflammatory Drug Start: 10-21-2024 Aspirin (Adult Lo w Dose Aspirin) 81 mg tablet,delayed release (DR/EC) Active 81 mg PO .QOD October 21, 2024 8:29am Start: 08-19-2023 End: 10-21-2024 Aspirin (Adult Low Dose Aspi rin) 81 mg tablet,delayed release (DR/EC) Discontinued 81 mg PO DAILY August 19, 2023 12:00am October 21, 2024 8:30am Start: 09-10-2021 End: 08-05-2023 take 1 tablet by mouth once daily Aspirin 81 MG tablet,delayed release (DR/EC) Discontinued 81 mg PO DAILY 30 0 September 10, 2021 1:26pm August 05, 2023 10:37am heart health Start: 08-18-2018 End: 09-10-2021 take 1 tablet by mouth every other day Aspirin 81 MG tablet,delayed release (DR/EC) Discontinued 81 mg PO EVERY OTHER DAY August 18, 2018 12:00am September 10, 2021 1:27pm heart [facility] atorvastatin 40 mg oral tablet (15 sources) HMG-CoA Reductase Inhibitor Start: 09-10-2021 take 1 tablet by mouth at bedtime Atorvastatin 40 mg Tablet Active 40 mg PO AT BEDTIME 30 0 September 10, 2021 12:00am ferrous fumarate 324 mg oral tablet (1 source) Start: 10-21-2024 take 1 tablet by mouth once daily Ferrous Fumarate 324 mg (106 mg iron) tablet Active 324 mg PO DAILY October 21, 2024 12:00am gabapentin 100 mg oral capsule (20 sources) Anti-epileptic Agent Start: 08-14-2024 End: 10-21-2024 take 1 capsule by mouth every other day Gabapentin 100 mg capsule Active 100 mg PO EVERY OTHER DAY October 21, 2024 12:00am Start: 12-31-2023 End: 03-22-2024 take 1 capsule by mouth at bedtime Gabapentin 100 mg capsule Discontinued 100 mg PO AT BEDTIME December 31, 2023 1:00am March 22, 2024 6:58pm Start: 09-29-2023 End: 12-31-2023 take 2 capsules by mouth at bedtime Gabapentin 100 mg capsule Discontinued 200 mg PO AT BEDTIME 180 2 September 29, 2023 3:30pm December 31, 2023 11:02am Start: 06-25-2022 End: 09-29-2023 take 1 capsule by mouth once daily in the morning, then take 2 capsules by mouth once daily in the evening Gabapentin 100 mg capsule Discontinued 100 mg .ROUTE .COMPLEX 21 0 June 02, 2023 12:57pm September 29, 2023 3:33pm Take 1 capsule orally every morning and 2 capsules orally every evening glipiZIDE 5 mg oral tablet (20 sources) Sulfonylurea Start: 08-05-2023 take 1 tablet by mouth once daily Glipizide 5 mg tablet Active 5 mg PO DAILY August 05, 2023 10:35am diabetes Start: 08-18-2018 End: 08-05-2023 take 1 tablet by mouth twice daily Glipizide 5 MG tablet Discontinued 5 mg PO TWICE A DAY August 18, 2018 12:00am August 05, 2023 10:37am diabetes 3 ml insulin glargine 100 unt/ml pen injector (20 sources) Insulin Analog Start: 04-19-2024 Insulin Glargi ne (Lantus Solostar U-100 Insulin) 100 unit/mL (3 mL) insulin pen Active 18 U SC TWICE A DAY April 19, 2024 1:10pm dm Start: 08-05-2023 End: 04-19-2024 Insulin Glargine (Lantus Kristy ostar U-100 Insulin) 100 unit/mL (3 mL) insulin pen Discontinued 24 U SC TWICE A DAY August 05, 2023 10:36am April 19, 2024 1:11pm dm Start: 09-09-2021 End: 08-05-2023 Insulin Glargine (Lantus Kristy ostar U-100 Insulin) 100 unit/mL (3 mL) insulin pen Discontinued 38 U SC AT BEDTIME September 09, 2021 12:00am August 05, 2023 10:37am dm Start: 08-18-2018 End: 02-20-2022 Insulin Glargine 100 UNITS/M L insulin pen Discontinued 41 U SC DAILY August 18, 2018 12:00am February 20, 2022 11:19am diabetes Start: 08-18-2018 End: 02-20-2022 Insulin Glargine Discontinue d 41 UNITS SC DAILY August 17, 2018 11:00pm February 20, 2022 10:19am ketoconazole 20 mg/ml medicated shampoo (8 sources) Azole Antifungal Start: 08-05-2023 Ketoconazole 2 % shampoo Active 1 NMA TOPICAL 3 TIMES A WEEK as needed for PER August 05, 2023 12:00am losartan potassium 100 mg oral tablet (11 sources) Angiotensin 2 Receptor [place] Start: 2022 take 1 tablet by mouth once daily Losartan 100 mg tablet Active 100 mg PO DAILY 2022 12:00am metFORMIN hydrochloride 500 mg oral tablet (20 sources) Biguanide Start: 08-05-2023 take 1 tablet by mouth twice daily Metformin 500 mg tablet Active 500 mg PO TWICE A DAY August 05, 2023 10:37am diabetes Start: 08-18-2018 End: 08-05-2023 take 2 tablets by mouth twice daily Metformin 500 MG tablet Discontinued 1000 mg PO TWICE A DAY August 18, 2018 12:00am August 05, 2023 10:37am diabetes Start: 08-18-2018 take 1000 mg by mout h twice daily Metformin Active 1000 MG PO TWICE A DAY August 17, 2018 11:00pm Miscellaneous Medical Supply (2 sources) Start: 07-17-2022 Miscellaneous Medical Supply Active 0 .Route 2 July 16, 2022 11:00pm 15-20mmHg knee-high measured compression stockings to be worn as directed; open or closed toe per patient preference Start: 07-17-2022 Miscellaneous Medical Supply Active 0 .Route 2 July 17, 2022 12:00am 15-20mmHg knee-high measured compression stockings to be worn as directed; open or closed toe per patient preference Miscellaneous Medical Supply misc (8 sources) Start: 07-17-2022 Miscellaneous Medical Supply misc Active 0 .Route 2 July 17, 2022 12:00am 15-20mmHg knee-high measured compression stockings to be worn as directed; open or closed toe per patient preference Start: 07-17-2022 Miscellaneous Medical Supply [facility] Active 0 .Route 2 July 17, 2022 12:00am 15-20mmHg knee-high measured compression stockings to be worn as directed; open or closed toe per patient preference Start: 07-17-2022 [facility] Active 0 .Route 2 July 16, 2022 11:00pm 15-20mmHg knee-high measured compression stockings to be worn as directed; open or closed toe per patient preference omeprazole 40 mg delayed release oral capsule (8 sources) Proton Pump Inhibitor Start: 01-04-2024 take 1 capsule by mouth twice daily Omeprazole 40 mg capsule,delayed release(DR/EC) Active 40 mg PO TWICE A DAY 60 January 04, 2024 1:00am Completed/Discontinued Medications Medication Drug Class(es) Dates Sig (Normalized) Sig (Original) acetaminophen 500 mg oral tablet (8 sources) Start: 08-19-2023 End: 04-19-2024 take 2 tablets by mouth every six hours as needed for pain Acetaminophen (Tylenol Extra Strength) 500 mg tablet Discontinued 1000 mg PO EVERY 6 HOURS as needed for pain August 19, 2023 12:00am April 19, 2024 1:10pm ascorbic acid 500 mg oral capsule (8 sources) Vitamin C Start: 09-29-2023 End: 03-22-2024 take 1 capsule by mouth once daily Ascorbic Acid (Vitamin C) 500 mg capsule Discontinued 500 mg PO DAILY September 29, 2023 12:00am March 22, 2024 6:58pm clopidogrel 75 mg oral tablet (15 sources) [id number] Platelet Inhibitor Start: 09-10-2021 End: 02-20-2022 take 1 tablet by mouth once daily Clopidogrel 75 mg Tablet Discontinued 75 mg PO DAILY 30 0 September 10, 2021 12:00am February 20, 2022 11:19am cyclobenzaprine hydrochloride 10 mg oral tablet (8 sources) Muscle Relaxant Start: 08-05-2023 End: 08-19-2023 take 1 tablet by mouth at bedtime as needed Cyclobenzaprine 10 mg tablet Discontinued 10 mg PO BEDTIME as needed August 05, 2023 12:00am August 19, 2023 3:22pm diclofenac sodium 0.01 mg/mg topical gel (8 sources) Nonsteroidal Anti-inflammatory Drug Start: 08-19-2023 End: 12-31-2023 Diclofenac Sodium (Arthritis Pain (Diclofenac)) 1 % gel Discontinued 2 g TOPICAL ONCE August 19, 2023 12:00am December 31, 2023 10:56am apply to single elbow, wrist or hand; for hand includes palm/fingers/back of hand ferrous sulfate 325 mg oral tablet (8 sources) Start: 09-29-2023 End: 03-22-2024 take 1 tablet by mouth once daily Ferrous Sulfate 325 mg (65 mg iron) tablet Discontinued 325 mg PO DAILY September 29, 2023 12:00am March 22, 2024 6:58pm 3 ml insulin lispro 100 unt/ml pen injector (16 sources) Insulin Analog Start: 08-18-2018 End: 2022 Insulin Lispro 100 UNIT/ML insulin pen Discontinued 10 U SQ 1800 August 18, 2018 12:00am 2022 10:10am diabetes levothyroxine sodium 0.05 mg oral tablet (20 sources) l-Thyroxine Start: 12-31-2023 End: 10-21-2024 take 1 tablet by mouth once daily Levothyroxine 50 mcg tablet Discontinued 50 ug PO DAILY December 31, 2023 1:00am October 21, 2024 8:30am Start: 09-29-2023 End: 12-31-2023 take 1 tablet by mouth once daily Levothyroxine 25 mcg tablet Discontinued 25 ug PO DAILY September 29, 2023 12:00am December 31, 2023 11:00am Start: 08-05-2023 End: 08-19-2023 take 1 capsule by mouth once daily Levothyroxine 50 mcg capsule Discontinued 50 ug PO DAILY August 05, 2023 12:00am August 19, 2023 3:19pm lisinopril 40 mg oral tablet (16 sources) Angiotensin Converting Enzyme Inhibitor Start: 08-18-2018 End: 2022 take 1 tablet by mouth at bedtime Lisinopril 40 MG tablet Discontinued 40 mg PO AT BEDTIME August 18, 2018 12:00am 2022 10:10am htn sucralfate 1000 mg oral tablet (8 sources) Aluminum Complex Start: 01-20-2024 End: 03-16-2024 take 1 tablet by mouth twice daily Sucralfate (Carafate) 1 gram tablet Discontinued 1 g PO TWICE A DAY 112 56 0 January 20, 2024 1:00am March 15, 2024 1:00am March 16, 2024 1:10am vitamin b12 1 mg oral capsule (8 sources) Vitamin B12 Start: 09-29-2023 End: 04-19-2024 take 1 capsule by mouth once daily Cyanocobalamin (Vitamin B-12) 1,000 mcg capsule Discontinued 1000 ug PO DAILY September 29, 2023 12:00am April 19, 2024 1:10pm Problems Active Problems Problem Classification Problem Date Documented Da te Episodic/Chronic Acute cerebrovascular disease (16 sources) Other cerebral infarction due to occlusion or stenosis of small artery; Translations: [Cerebrovascular accident (CVA) of right thalamus] Chronic Chronic kidney disease (8 sources) Chronic renal failure; Translations: [Chronic kidney disease, unspecified] 08-19-2023 Chronic Chronic kidney disease (1 source) Chronic kidney disease; Translations: [Chronic kidney disease, stage 3a] Onset: 5 Conditions associated with dizziness or vertigo (18 sources) Loss of equilibrium; Translations: [Dizziness and giddiness] Episodic Deficiency and other anemia (8 sources) Pancytopenia; Translations: [Other pancytopenia] 08-19-2023 Chronic Deficiency and other anemia (2 sources) Iron deficiency anemia secondary to blood loss (chronic); Translations: [Iron deficiency anemia secondary to blood loss (chronic)] Onset: 5 Chronic Deficiency and other anemia (9 sources) Anemia; Translations: [Anemia, unspecified] 08-05-2023 Episodic Deficiency and other anemia (10 sources) Iron deficiency anemia; Translations: [Iron deficiency anemia, unspecified] 08-19-2023 Episodic Deficiency and other anemia (2 sources) Anemia, unspecified; Translations: [Anemia, unspecified] Onset: 5 Episodic Diabetes mellitus with complications (9 sources) 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; Translations: [Retinopathy due to diabetes mellitus] Onset: 8 08-05-2023 Chronic Diabetes mellitus without complication (16 sources) Diabetes mellitus; Translations: [Type 2 diabetes mellitus without complications] Chronic Hypertension with complications and secondary hypertension (1 source) Hypertensive chronic kidney disease with stage 1 through stage 4 chronic kidney disease, or unspecified chronic kidney disease; Translations: [Hypertensive chronic kidney disease with stage 1 through stage 4 chronic kidney disease, or unspecified chronic kidney disease] Onset: 5 Chronic Malaise and fatigue (20 sources) Asthenia; Translations: [Weakness] Onset: 4 Episodic Occlusion or stenosis of precerebral arteries (15 sources) Carotid artery stenosis; Translations: [Occlusion and stenosis of unspecified carotid artery] 2022 Chronic Other and ill-defined cerebrovascular disease (14 sources) Cerebellar stroke syndrome; Translations: [Cerebellar stroke syndrome] 02-20-2022 Chronic Other and ill-defined cerebrovascular disease (20 sources) Cerebrovascular disease; Translations: [Cerebrovascular disease, unspecified] 02-20-2022 Chronic Other and ill-defined cerebrovascular disease (5 sources) Cerebrovascular disease, unspecified; Translations: [Unspecified cerebrovascular disease] 02-20-2022 Chronic Other circulatory disease (13 sources) Foot pulse absent; Translations: [Other specified symptoms and signs involving the circulatory and respiratory systems] 02-20-2022 Episodic Other circulatory disease (13 sources) Carotid bruit; Translations: [Other specified symptoms and signs involving the circulatory and respiratory systems] 02-20-2022 Episodic Other CONSTRUCTION SAFETY CONSULTANT infection and poliomyelitis (20 sources) Post poliomyelitis syndrome; 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] Onset: 5 02-20-2022 Chronic Other connective tissue disease (13 sources) Foot pain; Translations: [Pain in right foot] 02-20-2022 Episodic Other connective tissue disease (3 sources) Pain in right foot; Translations: [Pain in limb] 02-20-2022 Episodic Other ear and sense organ disorders (8 sources) Impacted cerumen; Translations: [Impacted cerumen, right ear] 06-28-2024 Episodic Other gastrointestinal disorders (15 sources) Dysphagia; Translations: [Dysphagia, unspecified] 11-18-2023 Episodic Other gastrointestinal disorders (1 source) Dysphagia, unspecified; Translations: [Dysphagia, unspecified] Onset: 5 Episodic Other inflammatory condition of skin (15 sources) Rosacea; Translations: [Rosacea, unspecified] 09-18-2021 Chronic Other inflammatory condition of skin (1 source) Rosacea, unspecified; Translations: [Rosacea] Chronic Other nervous system disorders (20 sources) Polyneuropathy; Translations: [Polyneuropathy, unspecified] 02-20-2022 Chronic Other nervous system disorders (5 sources) Polyneuropathy, unspecified; Translations: [Unspecified hereditary and idiopathic peripheral neuropathy] 02-20-2022 Chronic Other nervous system disorders (16 sources) Ataxia; Translations: [Ataxia, unspecified] 09-18-2021 Episodic Other nervous system disorders (2 sources) Ataxia, unspecified; Translations: [Lack of coordination] Episodic Other non-traumatic joint disorders (13 sources) Ankle pain; Translations: [Pain in right ankle and joints of right foot] 02-20-2022 Episodic Other non-traumatic joint disorders (3 sources) Pain in right ankle and joints of right foot; Translations: [Pain in joint, ankle and foot] 02-20-2022 Episodic Other screening for suspected conditions (not mental disorders or infectious disease) (14 sources) Electrocardiogram abnormal; Translations: [Abnormal electrocardiogram [ECG] [EKG]] 09-27-2021 Episodic Peripheral and visceral atherosclerosis (16 sources) Peripheral vascular disease, unspecified; Translations: [Peripheral arterial disease] 03-20-2022 Chronic Residual codes; unclassified (10 sources) Hypersomnia; Translations: [Hypersomnia, unspecified] 10-30-2022 Chronic Residual codes; unclassified (2 sources) Hypersomnia, unspecified; Translations: [Hypersomnia, unspecified] 10-30-2022 Chronic Viral infection (20 sources) Postherpetic neuralgia; Translations: [Other postherpetic nervous system involvement] 10-30-2022 Episodic Past or Other Problems Problem Classification Problem Date Documented Date Episodic/Chronic Genitourinary symptoms and ill-defined conditions (1 source) Unspecified abnormal findings in urine; Translations: [Unspecified abnormal findings in urine] Onset: 02-11-2024 Episodic Nutritional deficiencies (1 source) Deficiency of other specified B group vitamins; Translations: [Deficiency of other specified B group vitamins] Onset: 11-26-2023 Episodic Other circulatory disease (7 sources) Other specified symptoms and signs involving the circulatory and respiratory systems; Translations: [Other symptoms involving cardiovascular system] Onset: 04-28-2024 02-20-2022 Episodic Results Test Name Value Interpretation Reference Range Facility Absolute lymphocyte countOrd ered By: Lesly Hardwick on 10-21-2024 Lymphocytes Auto (Unsp spec) [#/Vol] 0.57 10*3/uL Low 0.83-4.51 [facility] Absolute neutrophil countOrd ered By: Lesly Hardwick on 10-21-2024 Neutrophils (Bld) [#/Vol] 3.1 10*3/uL 2.0-7.7 [facility] Anion gap in Serum or Plasma Ordered By: Lesly Hardwick on 10-21-2024 Anion gap [Moles/Vol] 15 mmol/L 5-15 [facility] Automated lymphocyte count a s percentage of total leukocytesOrdered By: Lesly Hardwick on 10-21-2024 Lymphocytes/100 WBC Auto (Unsp spec) 13.5 % Low 19- [facility] BUN/creatinine ratioOrdered By: Lesly Hardwick on 10-21-2024 Urea nitrogen/Creatinine [Mass ratio] 15.6 mg/mg 10- [facility] Basophil percentageOrdered B y: Lesly Hardwick on 10-21-2024 Basophils/100 WBC (Bld) 0.9 % 0-1 [facility] Bilirubin, totalOrdered By: Lesly Hardwick on 10-21-2024 Bilirubin [Mass/Vol] 0.58 mg/dL 0.00-1.30 [facility] CBC W/Diff, Automatedon 10-10 Absolute Lymph 0.57 X10 3/uL Low 0.83-4.51 [facility] Comment on above: Performed By: #### L 100.0100, L500.4050 ####[facility] [id number] [place], [address] Absolute Neut 3.1 X10 3/uL Normal 2.0-7.7 [facility] Comment on above: Performed By: #### L 100.0100, [id number] ####[facility] [id number] [place], [address] Basophils/100 WBC (Bld) 0.9 % Normal 0-1 [facility] Comment on above: Performed By: #### L 100.0100, [id number] ####[facility] [id number] [place], [address] Eosinophils/100 WBC (Bld) 3.1 % Normal 0-5 [facility] Comment on above: Performed By: #### L 100.0100, [id number] ####[facility] [id number] [place], [address] Erythrocyte distribution width (RBC) [Ratio] 17.2 % High 11.6-14.6 [facility] Comment on above: Performed By: #### L 100.0100, [id number] ####[facility] [address] [place], [address] Hematocrit (Bld) [Volume fraction] 26.7 % Low 37-47 [facility] Comment on above: Performed By: #### L 100.0100, L500.4050 ####[facility] [address] [place], [address] Hemoglobin (Bld) [Mass/Vol] 8.1 g/dL Low 12.0-15.0 [facility] Comment on above: Performed By: #### L 100.0100, L500.4050 ####[facility] [address] [place], [address] IG% 0.500 Normal 0.0-0.9 [facility] Comment on above: Result Comment: IG% - Immature Granulocytes (promyelocytes, myelocytes and metamyelocytes) > 1% indicates that a LEFT SHIFT is Present. Performed By: #### L 100.0100, L500.4050 ####[facility] [address] [place], [address] Lymphocytes/100 WBC (Bld) 13.5 % Low 19-41 [facility] Comment on above: Performed By: #### L 100.0100, L500.4050 ####[facility] [address] [place], [address] MCH (RBC) [Entitic mass] 25.4 pg Low 27.0-32.0 [facility] Comment on above: Performed By: #### L 100.0100, L500.4050 ####[facility] [address] [place], [address] MCHC (RBC) [Mass/Vol] 30.3 g/dL Low 32-36 [facility] Comment on above: Performed By: #### L 100.0100, L500.4050 ####[facility] [address] [place], [address] MCV (RBC) [Entitic vol] 83.7 fL Normal 81-99 [facility] Comment on above: Performed By: #### L 100.0100, L500.4050 ####[facility] [address] [place], [address] Monocytes/100 WBC (Bld) 7.8 % Normal 0-10 [facility] Comment on above: Performed By: #### L 100.0100, L500.4050 ####[facility] [address] [place], [address] Neutrophils/100 WBC (Bld) 74.2 % High 47-70 [facility] Comment on above: Performed By: #### L 100.0100, L500.4050 ####[facility] [address] [place], [address] Nucleated RBC (Bld) [#/Vol] 0 10*3/uL Normal 0-5 [facility] Comment on above: Performed By: #### L 100.0100, L500.4050 ####[facility] [address] [place], [address] Platelet mean volume (Bld) [Entitic vol] 11.1 fL Normal 6.2-12.0 [facility] Comment on above: Performed By: #### L 100.0100, L500.4050 ####[facility] [address] [place], [address] Platelets (Bld) [#/Vol] 164 10*3/uL Normal 150-450 [facility] Comment on above: Performed By: #### L 100.0100, L500.4050 ####[facility] [address] [place], [address] RBC (Bld) [#/Vol] 3.19 10*6/uL Low 4.2-5.4 [facility] Comment on above: Performed By: #### L 100.0100, L500.4050 ####[facility] [address] [place], [address] RDW SD 51.8 fl High 35.1-43.9 [facility] Comment on above: Performed By: #### L 100.0100, L500.4050 ####[facility] [address] [place], [address] WBC (Bld) [#/Vol] 4.2 10*3/uL Low 4.4-11.0 [facility] Comment on above: Performed By: #### L 100.0100, L500.4050 ####[facility] [address] [place], [address] Carbon dioxide, total [Moles /volume] in Central venous bloodOrdered By: Lesly Hardwick on 10-21-2024 CO2 [Moles/Vol] 18.5 mmol/L Low 21.0-32.0 [facility] Chloride assayOrdered By: Alejandra Hardwick on 10-21-2024 Chloride [Moles/Vol] 107 mmol/L 98-108 [facility] Comprehensive Metabolic Prof ilon 10-21-2024 Albumin [Mass/Vol] 3.7 g/dL Normal 3.4-4.8 [facility] Comment on above: Performed By: #### L 100.0100, L500.4050 ####[facility] [address] [place], [address] Albumin/Globulin [Mass ratio] 1.0 {ratio} Normal 0.9-2.4 [facility] Comment on above: Performed By: #### L 100.0100, L500.4050 ####[facility] [address] [place], [address] ALK PHOS 97 U/L Normal 35-104 [facility] Comment on above: Performed By: #### L 100.0100, L500.4050 ####[facility] [address] [place], [address] ALT [Catalytic activity/Vol] 12 U/L Normal <=34 [facility] Comment on above: Performed By: #### L 100.0100, L500.4050 ####[facility] [address] [place], [address] AST [Catalytic activity/Vol] 28 U/L Normal <=31 [facility] Comment on above: Performed By: #### L 100.0100, L500.4050 ####[facility] [address] [place], [address] Bilirubin [Mass/Vol] 0.58 mg/dL Normal 0.00-1.30 [facility] Comment on above: Performed By: #### L 100.0100, L500.4050 ####[facility] [address] [place], [address] BUN/CRE 15.6 RATIO Normal 10-20 [facility] Comment on above: Performed By: #### L 100.0100, L500.4050 ####[facility] [address] [place], [address] Calcium [Mass/Vol] 8.4 mg/dL Normal 7.6-11.0 [facility] Comment on above: Performed By: #### L 100.0100, L500.4050 ####[facility] [address] [place], [address] Chloride [Moles/Vol] 107 mmol/L Normal 98-108 [facility] Comment on above: Performed By: #### L 100.0100, L500.4050 ####[facility] [address] [place], [address] CO2 [Moles/Vol] 18.5 mmol/L Low 21.0-32.0 [facility] Comment on above: Performed By: #### L 100.0100, L500.4050 ####[facility] [address] [place], [address] Creatinine [Mass/Vol] 1.35 mg/dL High 0.70-1.20 [facility] Comment on above: Performed By: #### L 100.0100, L500.4050 ####[facility] [address] [place], [address] GAP 15 Normal 5-15 [facility] Comment on above: Performed By: #### L 100.0100, L500.4050 ####[facility] [address] [place], [address] GFR/1.73 sq M.predicted among non-blacks MDRD (S/P/Bld) [Vol rate/Area] 39 mL/min/{1.73_m2} Low >60 [facility] Comment on above: Result Comment: mL/m in/1.73m2 CKD-EPI Creatinine Equation (2020) Performed By: #### L 100.0100, L500.4050 ####[facility] [address] [place], [address] Globulin (S) [Mass/Vol] 3.6 g/dL Normal 2.2-4.2 [facility] Comment on above: Performed By: #### L 100.0100, L500.4050 ####[facility] [address] [place], [address] Glucose [Mass/Vol] 170 mg/dL High 70-99 [facility] Comment on above: Performed By: #### L 100.0100, L500.4050 ####[facility] [address] [place], [address] Potassium [Moles/Vol] 3.9 mmol/L Normal 3.3-5.1 [facility] Comment on above: Performed By: #### L 100.0100, L500.4050 ####[facility] [address] [place], [address] Sodium [Moles/Vol] 141 mmol/L Normal 133-145 [facility] Comment on above: Performed By: #### L 100.0100, L500.4050 ####[facility] [address] [place], [address] T PROT 7.3 g/dL Normal 5.9-8.4 [facility] Comment on above: Performed By: #### L 100.0100, L500.4050 ####[facility] [address] [place], [address] Urea nitrogen [Mass/Vol] 21 mg/dL High 4-19 [facility] Comment on above: Performed By: #### L 100.0100, L500.4050 ####[facility] [address] [place], [address] Eosinophil percentageOrdered By: Lesyl Hardwick on 10-21-2024 Eosinophils/100 WBC (Bld) 3.1 % 0-5 [facility] Erythrocyte distribution wid th ratioOrdered By: Lesly Hardwick on 10-21-2024 Erythrocyte distribution width (RBC) [Ratio] 17.2 % High 11.6-14.6 [facility] Erythrocyte distribution wid th standard deviationOrdered By: Lesly Hardwick on 10-21-2024 Erythrocyte distribution width (RBC) [Ratio] 51.8 fl High 35.1-43.9 [facility] Gastroenterology Visit Repor ton 10-21-2024 Gastroenterology Visit Report [facility] [address] [place] [address] OFFICE VISIT Date of Service: 10/21/24 MR#: [id number] Acct: [id number] Name: SANDIE WAGGONER DAWSON Rep #: [id number] : 1945 Provider: SUZETTE Carlson Age/Sex: 79/F Location: [facility] Status: Signed Intake Vital Signs 06/28/24 14:04 Height 5 ft 1 in Intake Visit Reasons: Low Hemoglobin Chief Complaint: Anemia Allergies Sulfa (Sulfonamide Antibiotics) Allergy (Unknown, Verified 06/28/24 14:04) Hives adhesive tape Adverse Reaction (Intermediate, Verified 06/28/24 14:04) Rash latex Adverse Reaction (Verified 06/28/24 14:04) skin reaction Medications ???Medication ???Instructions ???Recorded ???Confirmed ???Type atorvastatin 40 mg tablet 40 mg PO QHS #30 tabs 09/10/2102/02 Rx losartan 100 mg tablet 100 mg PO DAILY 05/07/22 10/21/24 History miscellaneous medical supply #2 ea 07/17/22 10/21/24 Rx glipizide 5 mg tablet 5 mg PO DAILY diabetes 08/05/23 History ketoconazole 2 % shampoo 1 applic topical 3XW PRN PER 10/21/24 History metformin 500 mg tablet 500 mg PO BID diabetes 08/05/23 History amlodipine 10 mg tablet 10 mg PO DAILY 12/31/23 10/21/24 H istory omeprazole 40 mg capsule,delayed 40 mg PO BID #60 caps 01/04/2402/02 Rx release insulin glargine 100 unit/mL (3 18 unit subcut BID dm 04/19/2402/02 History mL) subcutaneous pen (Lantus Solostar U-100 Insulin) gabapentin 100 mg capsule See Rx Instructions .Route 5 10/21/24 Rx .COMPLEX #45 caps aspirin 81 mg tablet,delayed 81 mg PO .QOD 10/21/24 10/21/24 Hi story release (Adult Low Dose Aspirin) Have you fallen in the past year?: No [facility] Medical History (Updated 08/14/24 @ 18:[address] Surendra Hidalgo MD) Impacted cerumen, right ear Wears glasses Thyroid disease Low iron History of echocardiogram Walker as ambulation aid Dysphagia Pancytopenia Chronic renal failure Iron deficiency anemia TIA (transient ischemic attack) Thalamic infarct, acute Diabetic retinopathy Anemia Stroke Shingles Neuropathy High cholesterol Cataracts, bilateral Arthritis Kidney stones GERD (gastroesophageal reflux disease) Rosacea Post-polio syndrome History of poliomyelitis HTN (hypertension) Diabetes mellitus Surgical History Cataract Gallstones Hx of lithotripsy Family History Father Diabetes Hypertension High cholesterol Angina at rest Heart disease Kidney disease Mother Bowel disease Grandmother CVA (cerebral vascular accident) Aunt CVA (cerebral vascular accident) Social History household members: spouse current occupational status: retired Smoking Status: Never smoker second hand exposure: No alcohol intake: never substance use type: does not use caffeine: Yes Type: coffee Number of servings: 1 what type of physical activity do you participate in: other frequency: 1-2 times per week elijah/druze: Quaker seatbelt use: always HPI HPI Chief Complaint: Anemia Details: SANDIE WAGGONER, is a 79 F who presents to the office today for follow-up. BGI established 11/26/2023 referred from hematology due to occasional problems with swallowing and chronic iron deficiency anemia. Patient with dysphagia episodes up to 3 times per week dysphagia is to solids and liquids last colonoscopy 15 years ago no history of EGD EGD 01/04/2024 No endoscopic esophageal abnormality to explain patient's dysphagia. - Small hiatal hernia. - Chronic gastritis. Biopsied. - Erosive gastropathy with stigmata of recent bleeding. Treated with a heater probe. - Chronic duodenitis. Biopsied. OV 10/21/24 patient seen by primary care provider who ordered blood work which showed a hemoglobin is 8.3 which prompted patient to make follow-up appointment. Patient having extreme fatigue and shortness of breath with exertion. Sometimes she is too tired to chew her food. Patient continues with omeprazole. She was started on iron 2 weeks ago. She denies black/tarry stool. ROS Const Constitutional: Positive for fatigue and weakness; No fever(s) or weight change ENT ENT: Positive for difficulty swallowing Cardio Cardiology: Positive for leg pain with exertion Gastro GI: Positive for abdominal pain, bloating, change in bowel habits, constipation, diarrhea, difficulty swallowing and nausea/dyspepsia; No belching, change in stool character, coffee ground emesis, cramping, heartburn, feeling full early, excessive flatus, incontinent of stools, Vomiting blood/hematemesis, Blood in stool, loose stools, Black,tarry stools, pain with swal (more content not included)... Normal [facility] Glomerular filtration rate ( GFR) estimation/1.73 sq m using serum, plasma, or whole bOrdered By: Lesly Hardwick on 10-21-2024 GFR/1.73 sq M.predicted among non-blacks MDRD (S/P/Bld) [Vol rate/Area] 39 mL/min/{1.73_m2} Low >60 [facility] Comment on above: mL/min/1.73m2 CKD-EP I Creatinine Equation (2020) Hematocrit Auto (Bld) [Volum e fraction]Ordered By: Lesly Hardwick on 10-21-2024 Hematocrit (Bld) [Volume fraction] 26.7 % Low 37-47 [facility] Hemoglobin measurementOrdere d By: Lesly Hardwick on 10-21-2024 Hemoglobin (Bld) [Mass/Vol] 8.1 g/dL Low 12.0-15.0 [facility] Immature granulocytes/100 WB C Auto (Bld)Ordered By: Lesly Hardwick on 10-21-2024 Immature granulocytes/100 WBC (Bld) 0.500 % 0.0-0.9 [facility] Comment on above: IG% - Immature Granu locytes (promyelocytes, myelocytes and metamyelocytes) > 1% indicates that a LEFT SHIFT is Present. Laboratory - Chemistry and C hemistry - challengeOrdered By: Lesly Hardwick on 10-21-2024 AST [Catalytic activity/Vol] 28 U/L <32 [facility] MCV (mean corpuscular volume ) determinationOrdered By: Lesly Hardwick on 10-21-2024 MCV (RBC) [Entitic vol] 83.7 fL 81-99 [facility] MR/PAT.ANEon 10-21-2024 MR/PAT.ANE [facility] Medical Records Department [address] [place] [address] PAT - Anesthesia 10/21/24 1228 MR#: [id number] Acct: [id number] Name: SANDIE WAGGONER Rep #: [id number] : 1945 79 From: Arya Dumont MD PCP: Dr. Desiree Tapia MD Status:PRE SD Y Race: C Location: EN Pre-Assessment Diagnosis/Proposed Procedure Planned Operative Procedure(s): EGD Anesthesia History Anesthesia History - environmental conservation officer: Anesthesia History - environmental conservation officer Hx Hospitalization No 10/21/24 11:31 Any Problems With Anesthesia No 10/21/24 11:31 Cholinesterase deficiency No 10/21/24 11:31 You/Your Family Experience No 10/21/24 11:31 fever (hyperthermia) with Relationship Recent Exposure to Contagious No 01/04/24 07:29 Disease Does patient have nerve No 10/21/24 11:31 stimulator Patient instructed to have device shut off --Does patient have Pacemaker or ICD? When Was Last Pacemaker Check QUESTION #4 FULL TEXT: You/Your Family Experience fever (hyperthermia) with Anesthesia Last Oral Intake Last Oral intake: Last Oral Intake NPO since Meds taken in AM with sips of water? Meds patient instructed to take am of surgery PONV PONV - environmental conservation officer: PONV - environmental conservation officer Female Yes 10/21/24 11:31 HX of Motion Sickness No 10/21/24 11:31 HX of N/V After Surgery No 10/21/24 11:31 Non-Smoker Yes 10/21/24 11:31 Duration of Surgery greater No 10/21/24 11:31 than 60 minutes Number of Risk Factors 2 10/21/24 11:31 PONV Score Moderate Risk 10/21/24 11:31 Height Weight Height Weight: Anesthesia: Height Weight Height 5 ft 1 in 06/28/24 14:04 Respiratory Assessment Respiratory Assessment - environmental conservation officer: Respiratory Tract Infection Hx - environmental conservation officer Hx Respiratory Tract Infection No 10/21/24 11:31 STOP Sleep Apnea STOP Sleep Apnea - environmental conservation officer: STOP Sleep Apnea - environmental conservation officer Hx Hypertension Yes: CONTROLLED WITH MED 10/21/24 11:31 Hx Sleep Apnea No 10/21/24 11:31 CPAP BIPAP Do you snore loudly (louder Yes 10/21/24 11:31 than talking or can be heard Do you often feel tired/ Yes 10/21/24 11:31 fatigued/ sleepy during daytime? Has anyone observed you stop No 10/21/24 11:31 breathing during sleep? STOP Results Positive 10/21/24 11:31 QUESTION #5 FULL TEXT : Do you snore loudly (louder than talking or can be heard through closed doors)? Tobacco Use History Tobacco Use History - environmental conservation officer: Tobacco Use History - environmental conservation officer Tobacco Use Non-smoker 09/10/21 10:00 Smoking Status Never smoker 10/21/24 11:31 Hx Tobacco Use No 10/21/24 11:31 Years Smoking Packs Smoked per Day Smoking Cessation Date was within the last 15 years Hx Smoking Cessation Date Hx Smoking Cessation No: patient doesn't smoke 10/21/24 11:31 Counseling Hematologic Medial History Hematologic Hx - environmental conservation officer: Hematologic Medical Hx - crocheter Hx of Blood Transfusion No 10/21/24 11:31 Hx of Transfusion in last 3 No 10/21/24 11:31 Months Date of Last Transfusion (if within last 3 months) Ever experience any problems No 10/21/24 11:31 with transfusion(s)? Specify any problems Hx of Preganancy in last 3 No 10/21/24 11:31 Months Nurse Filling Out Transfusion DSCHRIBER 10/21/24 11:31 Questions: Date: 10/21/24 10/21/24 11:31 Time: 11:34 10/21/24 11:31 Patient unable to answer at this time (ie. confused, unrespo /Reproduction History /Reproductive History - environmental conservation officer: /Reproductive Hx- environmental conservation officer Hx Now No 10/21/24 11:31 Gestational Age (in weeks): EDC: Hx Hx Para Hx Section SAB No 10/21/24 11:31 [facility] Medical History (Updated 10/21/24 @ 11:55 by Cristina Martinez) Thyroid disease Post-menopausal Insulin dependent diabetes mellitus Ambulates with cane Low iron Anemia Skin tear Migraine headache DDD (degenerative disc disease), cervical Lightheadedness Dietary restriction Difficulty swallowing History of hiatal hernia History of GI bleed Non-smoker Shortness of breath on exertion Leg cramps History of pain when walking History of edema Cardiology follow-up encounter Heart murmur History of Holter monitoring Wears glasses Thyroid disease History of echocardiogram Walker as ambulation aid Pancytopenia Thalamic infarct, acute Diabetic retinopathy Stroke Shingles Neuropathy High cholesterol Arthritis GERD (gastroesophageal reflux disease) Rosacea Post-polio syndrome History of poliomyelitis HTN (hypertension) Home Medications ???M (more content not included)... Normal [facility] Mean corpuscular hemoglobin (MCH) determinationOrdered By: Lesly Hardwick on 10-21-2024 MCH (RBC) [Entitic mass] 25.4 pg Low 27.0-32.0 [facility] Mean corpuscular hemoglobin concentration (MCHC) determinationOrdered By: Lesly Hardwick on 10-21-2024 MCHC (RBC) [Mass/Vol] 30.3 g/dL Low 32-36 [facility] Mean platelet volume determi nationOrdered By: Lesly Hardwick on 10-21-2024 Platelet mean volume (Bld) [Entitic vol] 11.1 fL 6.2-12.0 [facility] Monocyte percentageOrdered B y: Lesly Hardwick on 10-21-2024 Monocytes/100 WBC (Bld) 7.8 % 0-10 [facility] Neutrophil percentageOrdered By: Lesly Hardwick on 10-21-2024 Neutrophils/100 WBC (Bld) 74.2 % High 47-70 [facility] Nucleated red blood cell per centageOrdered By: Lesly Hardwick on 10-21-2024 Nucleated RBC/100 WBC (Bld) [Ratio] 0 % 0-5 [facility] Platelet countOrdered By: Alejandra Hardwick on 10-21-2024 Platelets (Bld) [#/Vol] 164 10*3/uL 150-450 [facility] Potassium measurement (mass/ volume)Ordered By: Lesly Hardwick on 10-21-2024 Potassium (Unsp spec) [Mass/Vol] 3.9 mmol/L 3.3-5.1 [facility] RBC Auto (Bld) [#/Vol]Ordere d By: Lesly Hardwick on 10-21-2024 RBC (Bld) [#/Vol] 3.19 10*6/uL Low 4.2-5.4 [facility] Serum creatinine measurement (mass/volume)Ordered By: Lesly Hardwick on 10-21-2024 Creatinine [Mass/Vol] 1.35 mg/dL High 0.70-1.20 [facility] Serum globulin measurementOr dered By: Lesly Hardwick on 10-21-2024 Globulin (S) [Mass/Vol] 3.6 g/dL 2.2-4.2 [facility] Serum glucose measurement (m ass/volume)Ordered By: Lelsy Hardwick on 10-21-2024 Glucose [Mass/Vol] 170 mg/dL High 70-99 [facility] Serum or plasma alanine mao otransferase (ALT) measurementOrdered By: Lesly Hardwick on 10-21-2024 ALT [Catalytic activity/Vol] 12 U/L <35 [facility] Serum or plasma albumin nick urement (mass/volume)Ordered By: Lesly Hardwick on 10-21-2024 Albumin [Mass/Vol] 3.7 g/dL 3.4-4.8 [facility] Serum or plasma albumin/glob ulin mass ratioOrdered By: Lesly Hardwick on 10-21-2024 Albumin/Globulin [Mass ratio] 1.0 {ratio} 0.9-2.4 [facility] Serum or plasma alkaline kathleen sphatase measurementOrdered By: Lesly Hardwick on 10-21-2024 ALP [Catalytic activity/Vol] 97 U/L 35-104 [facility] Serum or plasma calcium nick urement (mass/volume)Ordered By: Lesly Hardwick on 10-21-2024 Calcium [Mass/Vol] 8.4 mg/dL 7.6-11.0 [facility] Serum or plasma urea nitroge n measurement (mass/volume)Ordered By: Lesly Hardwick on 10-21-2024 Urea nitrogen [Mass/Vol] 21 mg/dL High 4-19 [facility] Sodium levelOrdered By: Laurie Hardwick on 10-21-2024 Sodium [Moles/Vol] 141 mmol/L 133-145 [facility] Total proteinOrdered By: Josephine Hardwick on 10-21-2024 Protein [Mass/Vol] 7.3 g/dL 5.9-8.4 [facility] White blood cell (WBC) count Ordered By: Lesly Hardwick on 10-21-2024 WBC (Bld) [#/Vol] 4.2 10*3/uL Low 4.4-11.0 [facility] Absolute lymphocyte countOrd ered By: Desiree Tapia on 10-04-2024 Lymphocytes Auto (Unsp spec) [#/Vol] 0.83 10*3/uL 0.83-4.51 [facility] Absolute neutrophil countOrd ered By: Desiree Tapia on 10-04-2024 Neutrophils (Bld) [#/Vol] 5.4 10*3/uL 2.0-7.7 [facility] Anion gap in Serum or Plasma Ordered By: Desiree Tapia on 10-04-2024 Anion gap [Moles/Vol] 15 mmol/L 5-15 [facility] Automated lymphocyte count a s percentage of total leukocytesOrdered By: Desiree Tapia on 10-04-2024 Lymphocytes/100 WBC Auto (Unsp spec) 11.8 % Low 19-41 [facility] BUN/creatinine ratioOrdered By: Desiree Tapia on 10-04-2024 Urea nitrogen/Creatinine [Mass ratio] 13.8 mg/mg 10-20 [facility] Basophil percentageOrdered B y: Desiree Tapia on 10-04-2024 Basophils/100 WBC (Bld) 0.9 % 0-1 [facility] Bilirubin, totalOrdered By: Desiree Tapia on 10-04-2024 Bilirubin [Mass/Vol] 0.70 mg/dL 0.00-1.30 [facility] CBC W/Diff, Automatedon 08-2 Absolute Lymph 0.83 X10 3/uL Normal 0.83-4.51 [facility] Comment on above: Performed By: #### L 100.0100, L501.9520, L502.0250, L503.0106, L500.4050, L503.6030, L503.6550 #### [facility] [address] [place], [address] Absolute Neut 5.4 X10 3/uL Normal 2.0-7.7 [facility] Comment on above: Performed By: #### L 100.0100, L501.9520, L502.0250, L503.0106, L500.4050, L503.6030, L503.6550 #### [facility] [address] [place], [address] Basophils/100 WBC (Bld) 0.9 % Normal 0-1 [facility] Comment on above: Performed By: #### L 100.0100, L501.9520, L502.0250, L503.0106, L500.4050, L503.6030, L503.6550 #### [facility] [address] [place], [address] Eosinophils/100 WBC (Bld) 2.1 % Normal 0-5 [facility] Comment on above: Performed By: #### L 100.0100, L501.9520, L502.0250, L503.0106, L500.4050, L503.6030, L503.6550 #### [facility] [address] [place], [address] Erythrocyte distribution width (RBC) [Ratio] 14.9 % High 11.6-14.6 [facility] Comment on above: Performed By: #### L 100.0100, L501.9520, L502.0250, L503.0106, L500.4050, L503.6030, L503.6550 #### [facility] [address] [place], [address] Hematocrit (Bld) [Volume fraction] 28.0 % Low 37-47 [facility] Comment on above: Performed By: #### L 100.0100, L501.9520, L502.0250, L503.0106, L500.4050, L503.6030, L503.6550 #### [facility] [address] [place], [address] Hemoglobin (Bld) [Mass/Vol] 8.3 g/dL Low 12.0-15.0 [facility] Comment on above: Performed By: #### L 100.0100, L501.9520, L502.0250, L503.0106, L500.4050, L503.6030, L503.6550 #### [facility] [address] [place], [address] IG% 1.600 High 0.0-0.9 [facility] Comment on above: Result Comment: IG% - Immature Granulocytes (promyelocytes, myelocytes and metamyelocytes) > 1% indicates that a LEFT SHIFT is Present. Performed By: #### L 100.0100, L501.9520, L502.0250, L503.0106, L500.4050, L503.6030, L503.6550 #### [facility] [address] [place], [address] Lymphocytes/100 WBC (Bld) 11.8 % Low 19-41 [facility] Comment on above: Performed By: #### L 100.0100, L501.9520, L502.0250, L503.0106, L500.4050, L503.6030, L503.6550 #### [facility] [address] [place], [address] MCH (RBC) [Entitic mass] 24.9 pg Low 27.0-32.0 [facility] Comment on above: Performed By: #### L 100.0100, L501.9520, L502.0250, L503.0106, L500.4050, L503.6030, L503.6550 #### [facility] [address] [place], [address] MCHC (RBC) [Mass/Vol] 29.6 g/dL Low 32-36 [facility] Comment on above: Performed By: #### L 100.0100, L501.9520, L502.0250, L503.0106, L500.4050, L503.6030, L503.6550 #### [facility] [address] [place], [address] MCV (RBC) [Entitic vol] 83.8 fL Normal 81-99 [facility] Comment on above: Performed By: #### L 100.0100, L501.9520, L502.0250, L503.0106, L500.4050, L503.6030, L503.6550 #### [facility] [address] [place], [address] Monocytes/100 WBC (Bld) 7.8 % Normal 0-10 [facility] Comment on above: Performed By: #### L 100.0100, L501.9520, L502.0250, L503.0106, L500.4050, L503.6030, L503.6550 #### [facility] [address] [place], [address] Neutrophils/100 WBC (Bld) 75.8 % High 47-70 [facility] Comment on above: Performed By: #### L 100.0100, L501.9520, L502.0250, L503.0106, L500.4050, L503.6030, L503.6550 #### [facility] [address] [place], [address] Nucleated RBC (Bld) [#/Vol] 0 10*3/uL Normal 0-5 [facility] Comment on above: Performed By: #### L 100.0100, L501.9520, L502.0250, L503.0106, L500.4050, L503.6030, L503.6550 #### [facility] [address] [place], [address] Platelet mean volume (Bld) [Entitic vol] 11.9 fL Normal 6.2-12.0 [facility] Comment on above: Performed By: #### L 100.0100, L501.9520, L502.0250, L503.0106, L500.4050, L503.6030, L503.6550 #### [facility] [address] [place], [address] Platelets (Bld) [#/Vol] 220 10*3/uL Normal 150-450 [facility] Comment on above: Performed By: #### L 100.0100, L501.9520, L502.0250, L503.0106, L500.4050, L503.6030, L503.6550 #### [facility] [address] [place], [address] RBC (Bld) [#/Vol] 3.34 10*6/uL Low 4.2-5.4 [facility] Comment on above: Performed By: #### L 100.0100, L501.9520, L502.0250, L503.0106, L500.4050, L503.6030, L503.6550 #### [facility] [address] [place], [address] RDW SD 45.2 fl High 35.1-43.9 [facility] Comment on above: Performed By: #### L 100.0100, L501.9520, L502.0250, L503.0106, L500.4050, L503.6030, L503.6550 #### [facility] [address] [place], [address] WBC (Bld) [#/Vol] 7.1 10*3/uL Normal 4.4-11.0 [facility] Comment on above: Performed By: #### L 100.0100, L501.9520, L502.0250, L503.0106, L500.4050, L503.6030, L503.6550 #### [facility] [address] [place], [address] Carbon dioxide, total [Moles /volume] in Central venous bloodOrdered By: Desiree Tapia on 10-04-2024 CO2 [Moles/Vol] 20.1 mmol/L Low 21.0-32.0 [facility] Chloride assayOrdered By: Lasha Tapia on 10-04-2024 Chloride [Moles/Vol] 107 mmol/L 98-108 [facility] Comprehensive Metabolic Prof ilon 10-04-2024 Albumin [Mass/Vol] 3.9 g/dL Normal 3.4-4.8 [facility] Comment on above: Performed By: #### L 100.0100, L501.9520, L502.0250, L503.0106, L500.4050, L503.6030, L503.6550 #### [facility] [address] [place], [address] Albumin/Globulin [Mass ratio] 1.1 {ratio} Normal 0.9-2.4 [facility] Comment on above: Performed By: #### L 100.0100, L501.9520, L502.0250, L503.0106, L500.4050, L503.6030, L503.6550 #### [facility] [address] [place], [address] ALK PHOS 122 U/L High 35-104 [facility] Comment on above: Performed By: #### L 100.0100, L501.9520, L502.0250, L503.0106, L500.4050, L503.6030, L503.6550 #### [facility] [address] [place], [address] ALT [Catalytic activity/Vol] 21 U/L Normal <=34 [facility] Comment on above: Performed By: #### L 100.0100, L501.9520, L502.0250, L503.0106, L500.4050, L503.6030, L503.6550 #### [facility] [address] [place], [place], [id number] (365) AST [Catalytic activity/Vol] 29 U/L Normal <=31 [facility] Comment on above: Performed By: #### L 100.0100, L501.9520, L502.0250, L503.0106, L500.4050, L503.6030, L503.6550 #### [facility] [address] [place], [place], [id number] (574) Bilirubin [Mass/Vol] 0.70 mg/dL Normal 0.00-1.30 [facility] Comment on above: Performed By: #### L 100.0100, L501.9520, L502.0250, L503.0106, L500.4050, L503.6030, L503.6550 #### [facility] [address] [place], [address] BUN/CRE 13.8 RATIO Normal 10-20 [facility] Comment on above: Performed By: #### L 100.0100, L501.9520, L502.0250, L503.0106, L500.4050, L503.6030, L503.6550 #### [facility] [address] [place], [address] Calcium [Mass/Vol] 8.9 mg/dL Normal 7.6-11.0 [facility] Comment on above: Performed By: #### L 100.0100, L501.9520, L502.0250, L503.0106, L500.4050, L503.6030, L503.6550 #### [facility] [address] [place], [address] Chloride [Moles/Vol] 107 mmol/L Normal 98-108 [facility] Comment on above: Performed By: #### L 100.0100, L501.9520, L502.0250, L503.0106, L500.4050, L503.6030, L503.6550 #### [facility] [address] [place], [address] CO2 [Moles/Vol] 20.1 mmol/L Low 21.0-32.0 [facility] Comment on above: Performed By: #### L 100.0100, L501.9520, L502.0250, L503.0106, L500.4050, L503.6030, L503.6550 #### [facility] [address] [place], [address] Creatinine [Mass/Vol] 1.29 mg/dL High 0.70-1.20 [facility] Comment on above: Performed By: #### L 100.0100, L501.9520, L502.0250, L503.0106, L500.4050, L503.6030, L503.6550 #### [facility] [address] [place], [address] GAP 15 Normal 5-15 [facility] Comment on above: Performed By: #### L 100.0100, L501.9520, L502.0250, L503.0106, L500.4050, L503.6030, L503.6550 #### [facility] [address] [place], [address] GFR/1.73 sq M.predicted among non-blacks MDRD (S/P/Bld) [Vol rate/Area] 42 mL/min/{1.73_m2} Low >60 [facility] Comment on above: Result Comment: mL/m in/1.73m2 CKD-EPI Creatinine Equation (2020) Performed By: #### L 100.0100, L501.9520, L502.0250, L503.0106, L500.4050, L503.6030, L503.6550 #### [facility] [address] [place], [address] Globulin (S) [Mass/Vol] 3.6 g/dL Normal 2.2-4.2 [facility] Comment on above: Performed By: #### L 100.0100, L501.9520, L502.0250, L503.0106, L500.4050, L503.6030, L503.6550 #### [facility] [address] [place], [address] Glucose [Mass/Vol] 173 mg/dL High 70-99 [facility] Comment on above: Performed By: #### L 100.0100, L501.9520, L502.0250, L503.0106, L500.4050, L503.6030, L503.6550 #### [facility] [address] [place], [address] Potassium [Moles/Vol] 4.1 mmol/L Normal 3.3-5.1 [facility] Comment on above: Performed By: #### L 100.0100, L501.9520, L502.0250, L503.0106, L500.4050, L503.6030, L503.6550 #### [facility] [address] [place], [address] Sodium [Moles/Vol] 142 mmol/L Normal 133-145 [facility] Comment on above: Performed By: #### L 100.0100, L501.9520, L502.0250, L503.0106, L500.4050, L503.6030, L503.6550 #### [facility] [address] [place], [address] T PROT 7.5 g/dL Normal 5.9-8.4 [facility] Comment on above: Performed By: #### L 100.0100, L501.9520, L502.0250, L503.0106, L500.4050, L503.6030, L503.6550 #### [facility] [address] [place], [address] Urea nitrogen [Mass/Vol] 18 mg/dL Normal 4-19 [facility] Comment on above: Performed By: #### L 100.0100, L501.9520, L502.0250, L503.0106, L500.4050, L503.6030, L503.6550 #### [facility] [address] [place], [address] Eosinophil percentageOrdered By: Desiree Tapia on 10-04-2024 Eosinophils/100 WBC (Bld) 2.1 % 0-5 [facility] Erythrocyte distribution wid th ratioOrdered By: Desiree Tapia on 10-04-2024 Erythrocyte distribution width (RBC) [Ratio] 14.9 % High 11.6-14.6 [facility] Erythrocyte distribution wid th standard deviationOrdered By: Desiree Tapia on 10-04-2024 Erythrocyte distribution width (RBC) [Ratio] 45.2 fl High 35.1-43.9 [facility] Ferritinon 10-04-2024 Ferritin [Mass/Vol] 14 ng/mL Low 22-378 [facility] Comment on above: Performed By: #### L 100.0100, L501.9520, L502.0250, L503.0106, L500.4050, L503.6030, L503.6550 ####[facility] [id number] [place], [place], [address] Glomerular filtration rate ( GFR) estimation/1.73 sq m using serum, plasma, or whole bOrdered By: Desiree Tapia on 10-04-2024 GFR/1.73 sq M.predicted among non-blacks MDRD (S/P/Bld) [Vol rate/Area] 42 mL/min/{1.73_m2} Low >60 [facility] Comment on above: mL/min/1.73m2 CKD-EP I Creatinine Equation (2020) Hematocrit Auto (Bld) [Volum e fraction]Ordered By: Desiree Tapia on 10-04-2024 Hematocrit (Bld) [Volume fraction] 28.0 % Low 37-47 [facility] Hemoglobin measurementOrdere d By: Desiree Tapia on 10-04-2024 Hemoglobin (Bld) [Mass/Vol] 8.3 g/dL Low 12.0-15.0 [facility] Immature granulocytes/100 WB C Auto (Bld)Ordered By: Desiree Tapia on 10-04-2024 Immature granulocytes/100 WBC (Bld) 1.600 % High 0.0-0.9 [facility] Comment on above: IG% - Immature Granu locytes (promyelocytes, myelocytes and metamyelocytes) > 1% indicates that a LEFT SHIFT is Present. Iron measurement (mass/mass) Ordered By: Desiree Tapia on 10-04-2024 Iron (Unsp spec) [Mass/Mass] 29 ug/dL Low 50-170 [facility] Iron+Iron Binding Capacityon 10-04-2024 Iron [Mass/Vol] 29 ug/dL Low 50-170 [facility] Comment on above: Performed By: #### L 100.0100, L501.9520, L502.0250, L503.0106, L500.4050, L503.6030, L503.6550 #### [facility] [address] [place], [address] IRON SATURATION 7.0 Low 13-59 [facility] Comment on above: Performed By: #### L 100.0100, L501.9520, L502.0250, L503.0106, L500.4050, L503.6030, L503.6550 #### [facility] [address] [place], [address] TIBC 406 ug/dL Normal 250-450 [facility] Comment on above: Performed By: #### L 100.0100, L501.9520, L502.0250, L503.0106, L500.4050, L503.6030, L503.6550 #### [facility] [address] [place], [address] UIBC 377 ug/dL Normal 228-428 [facility] Comment on above: Performed By: #### L 100.0100, L501.9520, L502.0250, L503.0106, L500.4050, L503.6030, L503.6550 #### [facility] [address] [place], [address] Laboratory - Chemistry and C hemistry - challengeOrdered By: Desiree Tapia on 10-04-2024 AST [Catalytic activity/Vol] 29 U/L <32 [facility] MCV (mean corpuscular volume ) determinationOrdered By: Desiree Tapia on 10-04-2024 MCV (RBC) [Entitic vol] 83.8 fL 81-99 [facility] Mean corpuscular hemoglobin (MCH) determinationOrdered By: Desiree Tapia on 10-04-2024 MCH (RBC) [Entitic mass] 24.9 pg Low 27.0-32.0 [facility] Mean corpuscular hemoglobin concentration (MCHC) determinationOrdered By: Desiree Tapia on 10-04-2024 MCHC (RBC) [Mass/Vol] 29.6 g/dL Low 32-36 [facility] Mean platelet volume determi nationOrdered By: Desiree Tapia on 10-04-2024 Platelet mean volume (Bld) [Entitic vol] 11.9 fL 6.2-12.0 [facility] Microalb:Creat Ratio,Random URon 10-04-2024 MALB:CREAT 327.0 mg/g CRE High <30 mg/g CRE [facility] Comment on above: Performed By: #### L 100.0100, L501.9520, L502.0250, L503.0106, L500.4050, L503.6030, L503.6550 ####[facility] [id number] [place], [place], [id number] MICROALBUMIN,UR 533.0 mg/L Normal <20 mg/L [facility] Comment on above: Performed By: #### L 100.0100, L501.9520, L502.0250, L503.0106, L500.4050, L503.6030, L503.6550 ####[facility] [address] [place], [place], [id number] Monocyte percentageOrdered B y: Desiree Tapia on 10-04-2024 Monocytes/100 WBC (Bld) 7.8 % 0-10 [facility] Neutrophil percentageOrdered By: Desiree Tapia on 10-04-2024 Neutrophils/100 WBC (Bld) 75.8 % High 47-70 [facility] No Panel InformationOrdered By: Desiree Tapia on 10-04-2024 Unsaturated Iron Binding Capacity 377 ug/dL 228-428 [facility] Nucleated red blood cell per centageOrdered By: Desiree Tapia on 10-04-2024 Nucleated RBC/100 WBC (Bld) [Ratio] 0 % 0-5 [facility] Platelet countOrdered By: Lasha Tapia on 10-04-2024 Platelets (Bld) [#/Vol] 220 10*3/uL 150-450 [facility] Potassium measurement (mass/ volume)Ordered By: Desiree Tapia on 10-04-2024 Potassium (Unsp spec) [Mass/Vol] 4.1 mmol/L 3.3-5.1 [facility] RBC Auto (Bld) [#/Vol]Ordere d By: Desiree Tapia on 10-04-2024 RBC (Bld) [#/Vol] 3.34 10*6/uL Low 4.2-5.4 [facility] Random urine creatinine nick urement (mass/volume)Ordered By: Desiree Tapia on 10-04-2024 Creatinine Unsp time (U) [Mass/Vol] 163.00 mg/dL 28.00-217.00 [facility] Serum creatinine measurement (mass/volume)Ordered By: Desiree Tapia on 10-04-2024 Creatinine [Mass/Vol] 1.29 mg/dL High 0.70-1.20 [facility] Serum globulin measurementOr dered By: Desiree Tapia on 10-04-2024 Globulin (S) [Mass/Vol] 3.6 g/dL 2.2-4.2 [facility] Serum glucose measurement (m ass/volume)Ordered By: Desiree Tapia on 10-04-2024 Glucose [Mass/Vol] 173 mg/dL High 70-99 [facility] Serum or plasma alanine mao otransferase (ALT) measurementOrdered By: Desiree Tapia on 10-04-2024 ALT [Catalytic activity/Vol] 21 U/L <35 [facility] Serum or plasma albumin nick urement (mass/volume)Ordered By: Desiree Tapia on 10-04-2024 Albumin [Mass/Vol] 3.9 g/dL 3.4-4.8 [facility] Serum or plasma albumin/glob ulin mass ratioOrdered By: Desiree Tapia on 10-04-2024 Albumin/Globulin [Mass ratio] 1.1 {ratio} 0.9-2.4 [facility] Serum or plasma alkaline kathleen sphatase measurementOrdered By: Desiree Tapia on 10-04-2024 ALP [Catalytic activity/Vol] 122 U/L High 35-104 [facility] Serum or plasma calcium nick urement (mass/volume)Ordered By: Desiree Tapia on 10-04-2024 Calcium [Mass/Vol] 8.9 mg/dL 7.6-11.0 [facility] Serum or plasma ferritin bacilio surement (mass/volume)Ordered By: Desiree Tapia on 10-04-2024 Ferritin [Mass/Vol] 14 ng/mL Low 22-378 [facility] Serum or plasma iron saturat ion measurement (mass fraction)Ordered By: Desiree Tapia on 10-04-2024 Iron saturation [Mass fraction] 7.0 % Low 13-59 [facility] Serum or plasma urea nitroge n measurement (mass/volume)Ordered By: Desiree Tapia on 10-04-2024 Urea nitrogen [Mass/Vol] 18 mg/dL 4-19 [facility] Sodium levelOrdered By: Alvina Tapia on 10-04-2024 Sodium [Moles/Vol] 142 mmol/L 133-145 [facility] TSH DL <= 0.005 mIU/L QnOrde red By: Desiree Tapia on 10-04-2024 TSH Qn 4.760 uIU/mL High 0.300-4.200 [facility] Thyroid Stim Hormone (TSH)on 10-04-2024 TSH 4.760 uIU/mL High 0.300-4.200 [facility] Comment on above: Performed By: #### L 100.0100, L501.9520, L502.0250, L503.0106, L500.4050, L503.6030, L503.6550 #### [facility] [address] [place] [address]. [place], [address] Total proteinOrdered By: Hermes Tapia on 10-04-2024 Protein [Mass/Vol] 7.5 g/dL 5.9-8.4 [facility] Urine albumin measurement wi detection limit of 20 mg/L or less (mass/volume)Ordered By: Desiree Tapia on 10-04-2024 Albumin DL <= 20 mg/L (U) [Mass/Vol] 533.0 mg/L <20 mg/L [facility] Vitamin B12on 10-04-2024 Cobalamin (Vitamin B12) [Mass/Vol] 536 pg/mL Normal 180-914 [facility] Comment on above: Performed By: #### L 100.0100, L501.9520, L502.0250, L503.0106, L500.4050, L503.6030, L503.6550 #### [facility] [address] [place], [address] Vitamin B12 ser/plasOrdered By: Desiree Tapia on 10-04-2024 Cobalamin (Vitamin B12) [Mass/Vol] 536 pg/mL 180-914 [facility] White blood cell (WBC) count Ordered By: Desiree Tapia on 10-04-2024 WBC (Bld) [#/Vol] 7.1 10*3/uL 4.4-11.0 [facility] Modified Barium Swallow Stud yon 08-29-2024 Modified Barium Swallow Study [facility] Speech Pathology [address] [place] [address] Modified Barium Swallow Study MR#: [id number] Acct: [id number] Name: SANDIE WAGGONER DAWSON Rep #: [id number] : 1945 79 From: Mandie Pham M.A., [facility]RN SUPPLEMENT[facility] Modified Barium Swallow Patient Information Study Date: 08/29/24 Study Time: 13:00 Direct Billable Minutes: 78 Total Minutes procedure reportin Diagnosis: Dysphagia R13.10 Referring Physician: Surendra Hidalgo Reason for Referral: The patient was referred for MBSS by neurologist, Dr. Hidalgo, due to pt reporting to him concerns for coughing/choking w/ foods, drinks, and even saliva. Swallowing difficulty occurs 1X/week. She reports swallowing trouble >20 years w/ unremarkable MBSS 20 years ago. Pt denies swallowing difficulty worsening after CVA in 2021. 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 Current Diet Ordered: Regular textures / Thin liquids Dentition: WNL and Natural Teeth Mental Status: WNL Respiratory Status: Oxygenating on Room Air Penetration-Aspiration Scale Penetration-Aspiration Scale: OBJECTIVE ASSESSMENT OF SWALLOW FUNCTION (QUANTITATIVE ??? PER TRIAL): PENETRATION / ASPIRATION SCALE ([place]): 1 = does not enter airway 2 = enters airway/above vocal folds/ejected 3 = enters airway/above vocal folds/not ejected 4 = enters airway/contacts vocal folds/ejected 5 = enters airway/contacts vocal folds/not ejected 6 = enters airway/below vocal folds/ejected 7 = enters airway/below vocal folds/not ejected despite effort 8 = enters airway/below vocal folds/no effort VIDEOFLOROSCOPIC SCALE SCORE ([place]): Grade I = aspiration of material that has penetrated into the laryngeal vestibule, intact cough reflex Grade II = aspiration < 10 % of the bolus, intact cough reflex Grade III = aspiration of < 10 % of the bolus, reduced cough reflex or aspiration of > 10 % of the bolus, intact cough reflex Grade IV = aspiration of > 10 % of the bolus, reduced cough reflex Penetration-Aspiration Scale Score Thin Liquid via teaspoon: Result: 1= does not enter airway Thin Liquid via teaspoon Trial 2: Result: 1= does not enter airway Thin Liquid via sequential sips: cup: Result: 1= does not enter airway Comment: Esophageal screen - Mild retention in the lower esophagus w/ retrograde flow. [place] Thick Liquid via small single sip: cup: Result: 1= does not enter airway Pudding via teaspoon: Result: 1= does not enter airway Comment: Esophageal screen - Retention in the lower and middle esophagus. Thin Liquid via sequential sips:straw: Result: 1= does not enter airway Comment: Esophageal screen - Mild retention of liquids in the lower esophagus w/ retrograde flow. 1/2 Cookie: Result: 1= does not enter airway Comment: Esophageal screen - Minimal retention of cookie in the lower esophagus. Thin Liquid via single sip: straw: Result: 1= does not enter airway Oral Phase Labial Seal: No Labial Escape Tongue Control During Bolus Hold: Posterior escape of less than half of bolus Bolus Preparation/Mastication : Timely and efficient chewing and mashing Bolus Transport/Lingual Motion: Delayed initiation of tongue motion Oral Residue: Trace residue lining oral structures Pharyngeal Phase Initiation of Pharyngeal Swallow: Bolus head at posterior laryngeal surgace of epiglottis Soft Palate Elevation: Trace column of contrast/air between soft palate and pharyngeal wall Laryngeal Elevation: Comp. Superior move thyroid cart w/comp. apprx arytenoid cart-epig pet Anterior Hyoid Excursion: Complete anterior movement Epiglottic Movement: Complete inversion Laryngeal Vestibule Closure at Height of Swallow: Complete; no air/contrast in laryngeal vestibule Pharyngeal Stripping Wave: Present - complete Pharyngoesophageal Segment Opening: Parital distension and partial duration; parital obstruction of flow Tongue Base Retraction: Trace column of contrast between tongue base post. pharyngeal wall Pharyngeal Residue: Trace residue within or on pharyngeal structures Esophageal Phase Esophageal Clearance: Esophageal retention w/ retrograde flow through pharyngoesophageal seg Diagnosis/Impression Diagnosis: Esophageal dysphagia R13.14; Oropharyngeal swallow function grossly WNL Impression: Oropharyngeal swallow function grossly WNL as compared to same-age peers. The esophageal phase is primarily marked by... -Trace retention in the UES w/ retrograde flow to the -Mild retention of liquids in the lower esophagus w/ retrograde flow. -Moderate retention of pudding in the middle and lower esophagus, which mostly cleared w/ liquid wash. -Minimal retention of cookie in the lower esophagus. Recommendations (more content not included)... Normal [facility] Neurology Visit Reporton Neurology Visit Report [facility] [address], [address] [place] [id number] OFFICE VISIT Date of Service: 06/28/24 MR#: [id number] Acct: [id number] Name: SANDIE WAGGONER DAWSON Rep #: [id number] : 1945 Provider: Dr. Surendra vergara MD Age/Sex: 79/F Location: [facility] Status: Signed HPI HPI Chief Complaint: Fatigue, anemia Details: Interim History: Sandie returns for follow-up visit. She has a history of hypertension, diabetes mellitus, gastroesophageal reflux disease, polio at the age of 2 years manifesting with bilateral lower extremity weakness with subsequent postpolio syndrome and right thalamic ischemic stroke in August 2021. Her right thalamic ischemic stroke in August 2021 manifested with acute onset left-sided oral/perioral numbness, left hand numbness and gait imbalance. She had been taking aspirin 81 mg every other day at the time that her stroke occurred. She was treated with dual antiplatelet therapy (aspirin 81 mg daily and clopidogrel 75 mg daily) for 3 weeks. Clopidogrel was then discontinued and she has subsequently took aspirin 81 mg daily for a period of time. She then developed erosive gastropathy and associated bleeding which was treated with a heater probe in December 2023. Omeprazole was initiated. On her own, she reduced her dose of aspirin to 81 mg every other day. She was started on atorvastatin. She was previously noted to have iron deficiency anemia. She did not tolerate an oral iron supplement (this caused constipation). Her last hemoglobin, hematocrit, iron and ferritin (March 2024) were normal. She has not had any symptoms suggestive of recurrent cerebrovascular ischemia since the stroke in August 2021 and does not have any history of symptomatic stroke prior to August 2021. Her left hand numbness resolved after about 2 months. She has continued to have left-sided perioral numbness. Around November 2021, she developed right-sided facial shingles in the periorbital region. The shingles did not affect the eye directly. She has seen an survey cad technician. She was treated with a course of prednisone and valacyclovir. 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 She began to have worsening of her bilateral lower extremity weakness around 2020, and prior to her stroke was using a cane. Following her stroke, she used a rollator or furniture support to ambulate, however she is now again using a cane. In the past, she had had a right orthotic shoe and right lower extremity brace however she no longer uses these. She uses shoe insoles. She has had chronic distal bilateral lower extremity edema. She did not like to use compression stockings. She has chronic pain in the feet and ankles that has been worse when she ambulates and subsides when she is at rest; she now reports that the pain in these areas has diminished and is no longer significant. She has been having some numbness in the toes. She takes acetaminophen and jamp-neq-jjxfjwq ibuprofen once or twice daily and this has been effective in treating her pain in the feet and ankles. She has bilateral heel contractures (right greater than left) and elevated foot arches. In the past, she had some low back pain that radiated to the hips however the pain in these regions has diminished. She has had some swallowing difficulty with solid foods. She has peripheral vascular disease. She was evaluated at a vascular surgeon's office in April 2023. She has not had claudication. A walking program was recommended. Continuation of aspirin and a statin were recommended. A one year follow-up was planned. Left ankle x-rays report from February 2022 states that poor delineation with cortical thinning of the medial talus and calcaneus with overlying soft tissue swelling was noted; correlate with clinical suspicion for infection. Clinically, my suspicion for infection was low however a podiatry referral (Talia Torres D.P.M.) was made however the patient did not see a special needs nanny. Right ankle x-rays revealed mild soft tissue swelling and demineralized bones. Right foot x-rays revealed mildly sclerotic appearance of the first metatarsal. The patient was contacted regarding the demineralization noted on her above x-rays and she planned on following up with her primary care physician to schedule a bone density test. Her pain in the feet and ankles has diminished and she has not had significant pain in these regions recently. She has had fatigue. She takes levothyroxine for hypothyroidism. A daily oral B12 supplementation was of some benefit for her fatigue. Monthly B12 injections for her fatigue lost efficacy and she no longer receives these. She has had right shoulder/periscapular region sharp pain since 2022. She has not had a right shoulder/torso rash. The symptoms may be due to shingles without associated rash and now her pattern may be consistent with post (more content not included)... Normal [facility] Visit Reporton 0 06-28-2024 Urgent Care Visit Report [facility] [address], [address] [place] [address] OFFICE VISIT Date of Service: 06/28/24 MR#: [id number] Acct: [id number] Name: DONAVON WAGGONERJP OSMAN Rep #: [id number] : 1945 Provider: SUZETTE Whitman Age/Sex: 79/F Location: [facility] Status: Signed Intake Vital Signs 06/28/24 13:05 06/28/24 14:04 Height 5 ft 1 in 5 ft 1 in Weight: 145 lb 145 lb 8 oz BMI 27.3 27.5 BP 175/62 H 172/70 H Blood Pressure Location Lt brachial Lt brachial Position Sitting Sitting Respiration 16 16 Pulse 83 79 Pulse Source Monitor NIBP Temp 98.6 F 97.9 F Temp Source Temporal Oral Pulse Oximetry (%) 96 96 Oxygen Delivery Method room air room air Intake Visit Reasons: CLOGGED R EAR Chief Complaint: right ear plugged Client Specialist Required: No Is patient in pain?: No Allergies Sulfa (Sulfonamide Antibiotics) Allergy (Unknown, Verified 06/28/24 14:04) Hives adhesive tape Adverse Reaction (Intermediate, Verified 06/28/24 14:04) Rash latex Adverse Reaction (Verified 06/28/24 14:04) skin reaction Is last menstrual period known: No Post menopausal: Yes Patient : No Have you fallen in the past year?: No Nurse's Note: right ear plugged and water filled feeling x 2 weeks. denies pain. pt sent by Dr. Hidalgo for eval right ear. [facility] Medical History (Updated 06/28/24 @ 15:34 by Miguel BRADFORD, PA) Impacted cerumen, right ear Wears glasses Thyroid disease Low iron History of echocardiogram Walker as ambulation aid Dysphagia Pancytopenia Chronic renal failure Iron deficiency anemia TIA (transient ischemic attack) Thalamic infarct, acute Diabetic retinopathy Anemia Stroke Shingles Neuropathy High cholesterol Cataracts, bilateral Arthritis Kidney stones GERD (gastroesophageal reflux disease) Rosacea Post-polio syndrome History of poliomyelitis HTN (hypertension) Diabetes mellitus Surgical History Cataract Gallstones Hx of lithotripsy Family History Father Diabetes Hypertension High cholesterol Angina at rest Heart disease Kidney disease Mother Bowel disease Grandmother CVA (cerebral vascular accident) Aunt CVA (cerebral vascular accident) Social History household members: spouse current occupational status: retired Smoking Status: Never smoker second hand exposure: No alcohol intake: never substance use type: does not use caffeine: Yes Type: coffee Number of servings: 1 what type of physical activity do you participate in: other frequency: 1-2 times per week elijah/druze: Quaker seatbelt use: always HPI HPI Chief Complaint: right ear plugged Details: SANDIE WAGGONER, is a 79 F who presents to the office today for right ear cerumen impaction removal as noticed by neurology. Patient notes localized tender to the same though no complaints of fever, chills, sweats, lightheadedness/dizzine ss, nausea/vomiting. Patient admits to using Q-tips to clean her ears frequently. No yedq-bce-swqomwv medications taken to assist with current symptoms. No other associated symptoms and no other alleviating/aggravating factors. ROS Const Constitutional: No other (As above) Exam Const General: cooperative, healthy appearing and no acute distress Orientation: alert and awake HENNH Head: normal to inspection Ears: hearing grossly normal bilaterally, external ears normal, TM's normal bilaterally (After cerumen impaction removed from right ear; see procedure) and EAC's normal Nose: external nose normal, nares normal, septum normal and no nasal discharge Face and sinus: normal facial exam, sinuses nontender and face symmetric Mouth: oral mucosae normal, lip normal, tongue normal, oropharynx normal and moist mucous membranes Throat: posterior oropharynx normal, tonsils normal, uvula midline and no postnasal drainage Neck Neck: normal visual inspection and no meningeal signs Resp Effort Inspection: normal respiratory effort and able to speak in complete sentences Cardio Rate: regular rate Pulses: radial pulses present Skin General: no rashes or lesions noted Neuro General: patient alert and patient awake Cognition: normal cognition Speech: speech normal Psych Appearance: grossly normal Mental Status: mental status grossly normal Mood: congruent mood Affect: normal affect Speech and Movement: speech and movement normal Attitude: cooperative Office Procedures Cerumen Removal Procedure BMS Cerumen Removal Procedure Procedure performed by: Miguel Ocampo Method of removal: loop and irrigation From which ear canal was the cerumen removed: right Amount of Cerumen: (more content not included)... Normal [facility] Duplex ultrasound of carotid artery reportOrdered By: Arya Argueta on 04-20-2024 Study report [facility] [address] [place] [address] Carotid Duplex Ultrasound 04/19/24 0948 MR#: [id number] Acct: [id number] Name: SANDIE WAGGONER DAWSON Rep #:[id number] : 1945 78 From: Arya Brown Attending Dr: SUZETTE Cavazos Stat us: REG CLI Ordering Dr: Haley Menard Date: Location: [facility] Sex: F C Admitted: Reason For Study Reason For Study: CAROTID STENOSIS Rt. Velocities/BP Lt. Velocities/BP Prox CCA 79.9/10.0 cm/sec. Prox CCA 107.6/13.0 cm/sec. Mid CCA 75.2/11.9 cm/sec. Mid PEY328.7/14.2 cm/sec. Dist CCA 72.4/8.1 cm/sec. Dist CCA 95.3/13.0 cm/sec. Prox ICA 121.6/15.7 cm/sec. Prox ICA 120.5/23.9 cm/sec. Mid ICA 203.3/32.0 cm/sec. Mid ICA92.0/17.3 cm/sec. Dist ICA 113.3/16.7 cm/sec. Dist ICA 176.0/20.5 cm/sec. Rt. ICA/CCA = 203.3/75.2=2.7. Lt. ICA/CCA = 176.0/113.7=1.5. Prox ECA 216.7/11.9 cm/sec. Prox ECA 138.1/13.0 cm/sec. Rt. Vert. 41.7/7.5 cm/sec. Lt. Vert. 72.8/12.3 cm/sec. Right Extracranial There is heterogeneous, irregular atherosclerotic plaque noted in the right common carotid artery. There is heterogeneous, irregular atherosclerotic plaque noted in the right internal carotid artery. There is homogeneous, smooth atherosclerotic plaque noted in the right external carotid artery. Antegrade flow is noted in the right vertebral artery. Left Extracranial There is heterogeneous, irregular atherosclerotic plaque noted in the left common carotid artery. There is heterogeneous, irregular atherosclerotic plaque noted in the left internal carotid artery. There is intimal thickening but no significant atherosclerotic plaque noted in the left external carotid artery. Antegrade flow is noted in the left vertebral artery. Procedure Carotid Duplex 57692. This is a Carotid Duplex examination using B-mode, color flow and specral Doppler. Exam performed in department. VL/Carotid Duplex Ultrasound Interpretation Summary Moderate (50-69%) stenosis right extracranial internal carotid. Moderate (50-69%) stenosis left extracranial internal carotid. Patent and antegrade vertebrals bilaterally. Ordering Physician: Haley Menard Referring Physician: Desiree Tapia Performed By: Janell Rubi, RDCS, RVT 04/20/24705 Date _ Arya Argueta MD CC: SUZETTE Cavazos; Dr. 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 Velocities/BP Lt. Velocities/BP Prox CCA 79.9/10.0 cm/sec. Prox CCA 107.6/13.0 cm/sec. Mid CCA 75.2/11.9 cm/sec. Mid CCA 113.7/14.2 cm/sec. Dist CCA 72.4/8.1 cm/sec. Dist CCA 95.3/13.0 cm/sec. Prox ICA 121.6/15.7 cm/sec. Prox ICA 120.5/23.9 cm/sec. Mid ICA 203.3/32.0 cm/sec. Mid ICA 92.0/17.3 cm/sec. Dist ICA 113.3/16.7 cm/sec. Dist ICA 176.0/20.5 cm/sec. Rt. ICA/CCA = 203.3/75.2=2.7. Lt. ICA/CCA = 176.0/113.7=1.5. Prox ECA 216.7/11.9 cm/sec. Prox ECA 138.1/13.0 cm/sec. Rt. Vert. 41.7/7.5 cm/sec. Lt. Vert. 72.8/12.3 cm/sec. Right Extracranial There is heterogeneous, irregular atherosclerotic plaque noted in the right common carotid artery. There is heterogeneous, irregular atherosclerotic plaque noted in the right internal carotid artery. There is homogeneous, smooth atherosclerotic plaque noted in the right external carotid artery. Antegrade flow is noted in the right vertebral artery. Left Extracranial There is heterogeneous, irregular atherosclerotic plaque noted in the left common carotid artery. There is heterogeneous, irregular atherosclerotic plaque noted in the left internal carotid artery. There is intimal thickening but no significant atherosclerotic plaque noted in the left external carotid artery. Antegrade flow is noted in the left vertebral artery. Procedure Carotid Duplex 22337. This is a Carotid Duplex examination using B-mode, color flow and specral Doppler. Exam performed in department. VL/Carotid Duplex Ultrasound Interpretation Summary Moderate (50-69%) stenosis right extracranial internal carotid. Moderate (50-69%) stenosis left extracranial internal carotid. Patent and antegrade vertebrals bilaterally. Ordering Physician: Haley Menard Referring Physician: Desiree Tapia Performed By: Greyson, Janell, RDCS, RVT 04/20/24705 Date Arya Argueta MD CC: SUZETTE Cavazos; Dr. 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 [place] [address] OFFICE VISIT Date of Service: 04/19/24 MR#: [id number] Acct: [id number] Name: SANDIE WAGGONER DAWSON Rep #: [id number] : 1945 Provider: SUZETTE Cavazos Age/Sex: 78/F Location: [facility] Status: Signed Intake Vital Signs 03/22/24 12:52 04/19/24 13:18 Height 5 ft 1 in Weight: 143 lb 146 lb BMI 27.0 BP 148/62 H 153/62 H Blood Pressure Location Lt brachial Lt brachial Position Sitting Sitting Respiration 16 16 Pulse 85 78 Pulse Source Monitor Monitor Temp 98.4 F 98 F Temp Source Temporal Temporal Pulse Oximetry (%) 96 97 Oxygen Delivery Method room air room air Intake Visit Reasons: 1 Y FU Is patient in pain?: No Allergies Sulfa (Sulfonamide Antibiotics) Allergy (Unknown, Verified 04/19/24 13:21) Hives adhesive tape Adverse Reaction (Intermediate, Verified 04/19/24 13:21) Rash latex Adverse Reaction (Verified 04/19/24 13:21) skin reaction Medications ???Medication ???Instructions ???Recorded ???Confirmed ???Type atorvastatin 40 mg tablet 40 mg PO QHS #30 tabs 09/10/2101/03 Rx losartan 100 mg tablet 100 mg PO DAILY 05/07/22 04/19/24 History miscellaneous medical supply #2 ea 07/17/22 04/19/24 Rx glipizide 5 mg tablet 5 mg PO DAILY diabetes 08/05/23 History ketoconazole 2 % shampoo 1 applic topical 3XW PRN PER 04/19/24 History metformin 500 mg tablet 500 mg PO BID diabetes 08/05/23 History aspirin 81 mg tablet,delayed 81 mg PO DAILY 08/19/23 04/19/24 H istory release (Adult Low Dose Aspirin) amlodipine 10 mg tablet 10 mg PO DAILY 12/31/23 04/19/24 H istory levothyroxine 50 mcg tablet 50 mcg PO DAILY 12/31/23 04/19/24 History omeprazole 40 mg capsule,delayed 40 mg PO BID #60 caps 01/04/2401/03 Rx release insulin glargine 100 unit/mL (3 18 unit subcut BID dm 04/19/2401/03 History mL) subcutaneous pen (Lantus Solostar U-100 Insulin) Is last menstrual period known: No Post menopausal: Yes Patient : No Have you fallen in the past year?: No PFSH Medical History Wears glasses Thyroid disease Low iron History of echocardiogram Walker as ambulation aid Dysphagia Pancytopenia Chronic renal failure Iron deficiency anemia TIA (transient ischemic attack) Thalamic infarct, acute Diabetic retinopathy Anemia Stroke Shingles Neuropathy High cholesterol Cataracts, bilateral Arthritis Kidney stones GERD (gastroesophageal reflux disease) Rosacea Post-polio syndrome History of poliomyelitis HTN (hypertension) Diabetes mellitus Surgical History Cataract Gallstones Hx of lithotripsy Family History Father Diabetes Hypertension High cholesterol Angina at rest Heart disease Kidney disease Mother Bowel disease Grandmother CVA (cerebral vascular accident) Aunt CVA (cerebral vascular accident) Social History household members: spouse current occupational status: retired Smoking Status: Never smoker second hand exposure: No alcohol intake: never substance use type: does not use caffeine: Yes Type: coffee Number of servings: 1 what type of physical activity do you participate in: other frequency: 1-2 times per week elijah/druze: Quaker seatbelt use: always HPI HPI HPI: SANDIE WAGGONER, is a 78 F who presents to the office today for annual follow-up of her carotid artery disease and PAD. She is accompanied to her appointment today by her . She just completed updated carotid duplex prior to her appointment. She shares that she is feeling better than she has in a long time. She has been receiving very helpful trigger point injection for her R shoulder by pain management Dr. Escobar. She has been able to come off of some of her diabetic and other medications. She feels she is ambulating better and generally has more energy. 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 The symptoms nearly fully resolved. She denies any recurrent or new symptoms concerning for CVA/TIA since then. She does have bilateral peripheral neuropathy and has persistent weakness in her RLE secondary to polio as a child which does significantly affect her gait/mobility but as noted she feels this is better for her lately. She denies any claudication, rest/nocturnal pain, discoloration, wounds. ROS General General: Yes weight change; No appetite, fatigue, colon cancer, breast cance (more content not included)... Normal [facility] Absolute lymphocyte countOrd ered By: Desiree Tapia on 04-01-2024 Lymphocytes Auto (Unsp spec) [#/Vol] 0.75 10*3/uL Low 0.83-4.51 [facility] Absolute neutrophil countOrd ered By: Desiree Tapia on 04-01-2024 Neutrophils (Bld) [#/Vol] 3.8 10*3/uL 2.0-7.7 [facility] Albumin to globulin ratioOrd ered By: Desiree Tapia on 04-01-2024 Albumin/Globulin [Mass ratio] 0.7 {ratio} Low 0.9-2.4 [facility] Automated lymphocyte count a s percentage of total leukocytesOrdered By: Desiree Tapia on 04-01-2024 Lymphocytes/100 WBC Auto (Unsp spec) 14.6 % Low 19-41 [facility] Basophil percentageOrdered B y: Desiree Tapia on 04-01-2024 Basophils/100 WBC (Bld) 1.2 % High 0-1 [facility] Bilirubin, totalOrdered By: Desiree Tapia on 04-01-2024 Bilirubin [Mass/Vol] 0.50 mg/dL 0.20-1.00 [facility] Comment on above: For patients on eltr ombopag therapy, use of Dimension [place] TBIL is not recommended. Blood urea nitrogen (BUN)/cr eatinine ratioOrdered By: Desiree Tapia on 04-01-2024 Urea nitrogen/Creatinine [Mass ratio] 17.4 mg/mg 10-20 [facility] CBC W/Diff, Automatedon 03-13 Absolute Lymph 0.75 X10 3/uL Low 0.83-4.51 [facility] Comment on above: Performed By: #### L 100.0100, L500.4050, L501.9520, L503.6030, L503.6550, L503.0105 ####[facility] [address] [place], [address] Absolute Neut 3.8 X10 3/uL Normal 2.0-7.7 [facility] Comment on above: Performed By: #### L 100.0100, L500.4050, L501.9520, L503.6030, L503.6550, L503.0105 ####[facility] [address] [place], [address] Basophils/100 WBC (Bld) 1.2 % High 0-1 [facility] Comment on above: Performed By: #### L 100.0100, L500.4050, L501.9520, L503.6030, L503.6550, L503.0105 ####[facility] [address] [place], [address] Eosinophils/100 WBC (Bld) 2.7 % Normal 0-5 [facility] Comment on above: Performed By: #### L 100.0100, L500.4050, L501.9520, L503.6030, L503.6550, L503.0105 ####[facility] [address] [place], [address] Erythrocyte distribution width (RBC) [Ratio] 14.0 % Normal 11.6-14.6 [facility] Comment on above: Performed By: #### L 100.0100, L500.4050, L501.9520, L503.6030, L503.6550, L503.0105 ####[facility] [address] [place], [address] Hematocrit (Bld) [Volume fraction] 38.4 % Normal 37-47 [facility] Comment on above: Performed By: #### L 100.0100, L500.4050, L501.9520, L503.6030, L503.6550, L503.0105 ####[facility] [address] [place], [address] Hemoglobin (Bld) [Mass/Vol] 12.5 g/dL Normal 12.0-15.0 [facility] Comment on above: Performed By: #### L 100.0100, L500.4050, L501.9520, L503.6030, L503.6550, L503.0105 ####[facility] [address] [place], [address] IG% 0.200 Normal 0.0-0.9 [facility] Comment on above: Result Comment: IG% - Immature Granulocytes (promyelocytes, myelocytes and metamyelocytes) > 1% indicates that a LEFT SHIFT is Present. Performed By: #### L 100.0100, L500.4050, L501.9520, L503.6030, L503.6550, L503.0105 ####[facility] [address] [place], [address] Lymphocytes/100 WBC (Bld) 14.6 % Low 19-41 [facility] Comment on above: Performed By: #### L 100.0100, L500.4050, L501.9520, L503.6030, L503.6550, L503.0105 ####[facility] [address] [place], [address] MCH (RBC) [Entitic mass] 30.6 pg Normal 27.0-32.0 [facility] Comment on above: Performed By: #### L 100.0100, L500.4050, L501.9520, L503.6030, L503.6550, L503.0105 ####[facility] [address] [place], [address] MCHC (RBC) [Mass/Vol] 32.6 g/dL Normal 32-36 [facility] Comment on above: Performed By: #### L 100.0100, L500.4050, L501.9520, L503.6030, L503.6550, L503.0105 ####[facility] [address] [place], [address] MCV (RBC) [Entitic vol] 94.1 fL Normal 81-99 [facility] Comment on above: Performed By: #### L 100.0100, L500.4050, L501.9520, L503.6030, L503.6550, L503.0105 ####[facility] [address] [place], [address] Monocytes/100 WBC (Bld) 7.0 % Normal 0-10 [facility] Comment on above: Performed By: #### L 100.0100, L500.4050, L501.9520, L503.6030, L503.6550, L503.0105 ####[facility] [address] [place], [address] Neutrophils/100 WBC (Bld) 74.3 % High 47-70 [facility] Comment on above: Performed By: #### L 100.0100, L500.4050, L501.9520, L503.6030, L503.6550, L503.0105 ####[facility] [address] [place], [address] Nucleated RBC (Bld) [#/Vol] 0 10*3/uL Normal 0-5 [facility] Comment on above: Performed By: #### L 100.0100, L500.4050, L501.9520, L503.6030, L503.6550, L503.0105 ####[facility] [address] [place], [address] Platelet mean volume (Bld) [Entitic vol] 11.8 fL Normal 6.2-12.0 [facility] Comment on above: Performed By: #### L 100.0100, L500.4050, L501.9520, L503.6030, L503.6550, L503.0105 ####[facility] [address] [place], [address] Platelets (Bld) [#/Vol] 148 10*3/uL Low 150-450 [facility] Comment on above: Performed By: #### L 100.0100, L500.4050, L501.9520, L503.6030, L503.6550, L503.0105 ####[facility] [address] [place], [address] RBC (Bld) [#/Vol] 4.08 10*6/uL Low 4.2-5.4 [facility] Comment on above: Performed By: #### L 100.0100, L500.4050, L501.9520, L503.6030, L503.6550, L503.0105 ####[facility] [address] [place], [address] RDW SD 48.0 fl High 35.1-43.9 [facility] Comment on above: Performed By: #### L 100.0100, L500.4050, L501.9520, L503.6030, L503.6550, L503.0105 ####[facility] [address] [place], [address] WBC (Bld) [#/Vol] 5.2 10*3/uL Normal 4.4-11.0 [facility] Comment on above: Performed By: #### L 100.0100, L500.4050, L501.9520, L503.6030, L503.6550, L503.0105 ####[facility] [address] [place], [address] Carbon dioxide measurementOr dered By: Desiree Tapia on 04-01-2024 CO2 [Moles/Vol] 25.0 mmol/L 21.0-32.0 [facility] Chloride measurementOrdered By: Desiree Tapia on 04-01-2024 Chloride [Moles/Vol] 108 mmol/L High 98-107 [facility] Comprehensive Metabolic Prof ilon 04-01-2024 Albumin [Mass/Vol] 3.3 g/dL Normal 3.2-5.0 [facility] Comment on above: Performed By: #### L 100.0100, L500.4050, L501.9520, L503.6030, L503.6550, L503.0105 ####[facility] [address] [place], [address] Albumin/Globulin [Mass ratio] 0.7 {ratio} Low 0.9-2.4 [facility] Comment on above: Performed By: #### L 100.0100, L500.4050, L501.9520, L503.6030, L503.6550, L503.0105 ####[facility] [address] [place], [address] ALK P 129 U/L High 45-117 [facility] Comment on above: Performed By: #### L 100.0100, L500.4050, L501.9520, L503.6030, L503.6550, L503.0105 ####[facility] [address] [place], [address] ALT [Catalytic activity/Vol] 35 U/L Normal 13-56 [facility] Comment on above: Performed By: #### L 100.0100, L500.4050, L501.9520, L503.6030, L503.6550, L503.0105 ####[facility] [address] [place], [address] AST [Catalytic activity/Vol] 37 U/L Normal 15-37 [facility] Comment on above: Performed By: #### L 100.0100, L500.4050, L501.9520, L503.6030, L503.6550, L503.0105 ####[facility] [address] [place], [address] Bilirubin [Mass/Vol] 0.50 mg/dL Normal 0.20-1.00 [facility] Comment on above: Result Comment: For patients on eltrombopag therapy, use of Dimension [place] TBIL is not recommended. Performed By: #### L 100.0100, L500.4050, L501.9520, L503.6030, L503.6550, L503.0105 ####[facility] [address] [place], [address] BUN/CRE 17.4 RATIO Normal 10-20 [facility] Comment on above: Performed By: #### L 100.0100, L500.4050, L501.9520, L503.6030, L503.6550, L503.0105 ####[facility] [address] [place], [address] CA,Total 9.4 mg/dL Normal 8.5-10.1 [facility] Comment on above: Performed By: #### L 100.0100, L500.4050, L501.9520, L503.6030, L503.6550, L503.0105 ####[facility] [address] [place], [address] Chloride [Moles/Vol] 108 mmol/L High 98-107 [facility] Comment on above: Performed By: #### L 100.0100, L500.4050, L501.9520, L503.6030, L503.6550, L503.0105 ####[facility] [address] [place], [address] CO2 [Moles/Vol] 25.0 mmol/L Normal 21.0-32.0 [facility] Comment on above: Performed By: #### L 100.0100, L500.4050, L501.9520, L503.6030, L503.6550, L503.0105 ####[facility] [address] [place], [address] Creatinine [Mass/Vol] 1.32 mg/dL High 0.55-1.02 [facility] Comment on above: Result Comment: The validity of the calculated GFR GFRAA in patients over 70 years has not been determined. Clinical correlation is essential. Performed By: #### L 100.0100, L500.4050, L501.9520, L503.6030, L503.6550, L503.0105 ####[facility] [address] [place], [address] EST GFR - AA 50 mL/min Low >60 [facility] Comment on above: Result Comment: Afri can [place] GFR Calc Performed By: #### L 100.0100, L500.4050, L501.9520, L503.6030, L503.6550, L503.0105 ####[facility] [address] [place], [address] GAP 6 Normal 5-15 [facility] Comment on above: Performed By: #### L 100.0100, L500.4050, L501.9520, L503.6030, L503.6550, L503.0105 ####[facility] [address] [place], [address] GFR/1.73 sq M.predicted among non-blacks MDRD (S/P/Bld) [Vol rate/Area] 41 mL/min/{1.73_m2} Low >60 [facility] Comment on above: Result Comment: Non- GFR Calc Performed By: #### L 100.0100, L500.4050, L501.9520, L503.6030, L503.6550, L503.0105 ####[facility] [address] [place], [address] Globulin (S) [Mass/Vol] 4.7 g/dL High 2.2-4.2 [facility] Comment on above: Performed By: #### L 100.0100, L500.4050, L501.9520, L503.6030, L503.6550, L503.0105 ####[facility] [address] [place], [address] Glucose [Mass/Vol] 163 mg/dL High 74-106 [facility] Comment on above: Result Comment: Fast ing Glucose result greater than or equal to 126 mg/dL suggests DIABETES MELLITUS per A.D.A. criteria. Performed By: #### L 100.0100, L500.4050, L501.9520, L503.6030, L503.6550, L503.0105 ####[facility] [address] [place], [address] Potassium [Moles/Vol] 4.5 mmol/L Normal 3.5-5.1 [facility] Comment on above: Performed By: #### L 100.0100, L500.4050, L501.9520, L503.6030, L503.6550, L503.0105 ####[facility] [address] [place], [address] Sodium [Moles/Vol] 140 mmol/L Normal 136-145 [facility] Comment on above: Performed By: #### L 100.0100, L500.4050, L501.9520, L503.6030, L503.6550, L503.0105 ####[facility] [address] [place], [address] T PROT 8.0 g/dL Normal 6.4-8.2 [facility] Comment on above: Performed By: #### L 100.0100, L500.4050, L501.9520, L503.6030, L503.6550, L503.0105 ####[facility] [address] [place], [address] Urea nitrogen [Mass/Vol] 23 mg/dL High 7-18 [facility] Comment on above: Performed By: #### L 100.0100, L500.4050, L501.9520, L503.6030, L503.6550, L503.0105 ####[facility] [address] [place], [address] Eosinophil percentageOrdered By: Desiree Tapia on 04-01-2024 Eosinophils/100 WBC (Bld) 2.7 % 0-5 [facility] Erythrocyte distribution wid th ratioOrdered By: Desiree Tapia on 04-01-2024 Erythrocyte distribution width (RBC) [Ratio] 14.0 % 11.6-14.6 [facility] Erythrocyte distribution wid th standard deviationOrdered By: Desiree Tapia on 04-01-2024 Erythrocyte distribution width (RBC) [Entitic vol] 48.0 fL High 35.1-43.9 [facility] Erythrocyte distribution width (RBC) [Ratio] 48.0 fl High 35.1-43.9 [facility] Estimated glomerular filtrat ion rate (GFR) AmericanOrdered By: Desiree Tapia on 04-01-2024 Estimated GFR (MDRD) Amer 50 mL/min Low >60 [facility] Comment on above: GFR Calc Ferritinon 04-01-2024 Ferritin [Mass/Vol] 34 ng/mL Normal 8-252 [facility] Comment on above: Performed By: #### L 100.0100, L500.4050, L501.9520, L503.6030, L503.6550, L503.0105 ####[facility] [address] [place], [address] Ferritin measurementOrdered By: Desiree Tapia on 04-01-2024 Ferritin [Mass/Vol] 34 ng/mL 8-252 [facility] Glomerular filtration rate ( GFR) estimationOrdered By: Desiree Tapia on 04-01-2024 Estimated GFR (MDRD) Non-Af Amer 41 mL/min Low >60 [facility] Comment on above: Non- GFR Calc GFR/1.73 sq M.predicted among non-blacks MDRD (S/P/Bld) [Vol rate/Area] 41 mL/min/{1.73_m2} Low >60 [facility] Comment on above: Non- GFR Calc Glucose measurementOrdered B y: Desiree Tapia on 04-01-2024 Glucose [Mass/Vol] 163 mg/dL High 74-106 [facility] Comment on above: Fasting Glucose resu lt greater than or equal to 126 mg/dL suggests DIABETES MELLITUS per A.D.A. criteria. Hematocrit Auto (Bld) [Volum e fraction]Ordered By: Desiree Tapia on 04-01-2024 Hematocrit (Bld) [Volume fraction] 38.4 % 37-47 [facility] Hemoglobin measurementOrdere d By: Desiree Tapia on 04-01-2024 Hemoglobin (Bld) [Mass/Vol] 12.5 g/dL 12.0-15.0 [facility] Immature granulocytes/100 WB C Auto (Bld)Ordered By: Desiree Tapia on 04-01-2024 Immature granulocytes/100 WBC (Bld) 0.200 % 0.0-0.9 [facility] Comment on above: IG% - Immature Granu locytes (promyelocytes, myelocytes and metamyelocytes) > 1% indicates that a LEFT SHIFT is Present. Iron (Unsp spec) [Mass/Mass] Ordered By: Desiree Tapia on 04-01-2024 Iron [Mass/Vol] 53 ug/dL 50-170 [facility] Iron measurement (mass/mass) Ordered By: Desiree Tapia on 04-01-2024 Iron (Unsp spec) [Mass/Mass] 53 ug/dL 50-170 [facility] Iron saturation [Mass fracti on]Ordered By: Desiree Tapia on 04-01-2024 Iron Saturation 15.2 % 15.0-55.0 [facility] Iron+Iron Binding Capacityon 04-01-2024 Iron [Mass/Vol] 53 ug/dL Normal 50-170 [facility] Comment on above: Performed By: #### L 100.0100, L500.4050, L501.9520, L503.6030, L503.6550, L503.0105 ####[facility] [address] [place], [place], [phone] IRON SATURATION 15.2 Normal 15.0-55.0 [facility] Comment on above: Performed By: #### L 100.0100, L500.4050, L501.9520, L503.6030, L503.6550, L503.0105 ####[facility] [address] [place], [place], [phone] TIBC 348 ug/dL Normal 250-450 [facility] Comment on above: Performed By: #### L 100.0100, L500.4050, L501.9520, L503.6030, L503.6550, L503.0105 ####[facility] [address] [place], [address] Laboratory - Chemistry and C hemistry - challengeOrdered By: Desiree Tapia on 04-01-2024 AST [Catalytic activity/Vol] 37 U/L 15-37 [facility] Lymphocytes Auto (Unsp spec) [#/Vol]Ordered By: Desiree Tapia on 04-01-2024 Lymphocytes (Bld) [#/Vol] 0.75 10*3/uL Low 0.83-4.51 [facility] Lymphocytes/100 WBC Auto (Un sp spec)Ordered By: Desiree Tapia on 04-01-2024 Lymphocytes/100 WBC (Bld) 14.6 % Low 19-41 [facility] MCV (mean corpuscular volume ) determinationOrdered By: Desiree Tapia on 04-01-2024 MCV (RBC) [Entitic vol] 94.1 fL 81-99 [facility] Mean corpuscular hemoglobin (MCH) determinationOrdered By: Desiree Tapia on 04-01-2024 MCH (RBC) [Entitic mass] 30.6 pg 27.0-32.0 [facility] Mean corpuscular hemoglobin concentration (MCHC) determinationOrdered By: Desiree Tapia on 04-01-2024 MCHC (RBC) [Mass/Vol] 32.6 g/dL 32-36 [facility] Mean platelet volume determi nationOrdered By: Desiree Tapia on 04-01-2024 Platelet mean volume (Bld) [Entitic vol] 11.8 fL 6.2-12.0 [facility] Monocyte percentageOrdered B y: Desiree Tapia on 04-01-2024 Monocytes/100 WBC (Bld) 7.0 % 0-10 [facility] Neutrophil percentageOrdered By: Desiree Tapia on 04-01-2024 Neutrophils/100 WBC (Bld) 74.3 % High 47-70 [facility] Nucleated red blood cell per centageOrdered By: Desiree Tapia on 04-01-2024 Nucleated RBC/100 WBC (Bld) [Ratio] 0 % 0-5 [facility] Platelet countOrdered By: Lasha Tapia on 04-01-2024 Platelets (Bld) [#/Vol] 148 10*3/uL Low 150-450 [facility] Potassium measurementOrdered By: Desiree Tapia on 04-01-2024 Potassium [Moles/Vol] 4.5 mmol/L 3.5-5.1 [facility] RBC Auto (Bld) [#/Vol]Ordere d By: Desiree Tapia on 04-01-2024 RBC (Bld) [#/Vol] 4.08 10*6/uL Low 4.2-5.4 [facility] Serum anion gap measurementO rdered By: Desiree Tapia on 04-01-2024 Anion gap [Moles/Vol] 6 mmol/L 5-15 [facility] Serum globulin measurementOr dered By: Desiree Tapia on 04-01-2024 Globulin (S) [Mass/Vol] 4.7 g/dL High 2.2-4.2 [facility] Serum or plasma alanine mao otransferase (ALT) measurementOrdered By: Desiree Tapia on 04-01-2024 ALT [Catalytic activity/Vol] 35 U/L 13-56 [facility] Serum or plasma albumin nick urement (mass/volume)Ordered By: Desiree Tapia on 04-01-2024 Albumin [Mass/Vol] 3.3 g/dL 3.2-5.0 [facility] Serum or plasma alkaline kathleen sphatase measurementOrdered By: Desiree Tapia on 04-01-2024 ALP [Catalytic activity/Vol] 129 U/L High 45-117 [facility] Serum or plasma calcium nick urement (mass/volume)Ordered By: Desiree Tapia on 04-01-2024 Calcium [Mass/Vol] 9.4 mg/dL 8.5-10.1 [facility] Serum or plasma creatinine m easurement (mass/volume)Ordered By: Desiree Tapia on 04-01-2024 Creatinine [Mass/Vol] 1.32 mg/dL High 0.55-1.02 [facility] Comment on above: The validity of the calculated GFR & GFRAA in patients over 70 years has not been determined. Clinical correlation is essential. Serum or plasma iron saturat ion measurement (mass fraction)Ordered By: Desiree Tapia on 04-01-2024 Iron saturation [Mass fraction] 15.2 % 15.0-55.0 [facility] Serum or plasma thyroid stim ulating hormone (TSH) measurement (units/volume)Ordered By: Desiree Tapia on 04-01-2024 TSH Qn 3.250 uIU/mL 0.358-3.740 [facility] Serum or plasma urea nitroge n measurement (mass/volume)Ordered By: Desiree Tapia on 04-01-2024 Urea nitrogen [Mass/Vol] 23 mg/dL High 7-18 [facility] Sodium levelOrdered By: Alvina Tapia on 04-01-2024 Sodium [Moles/Vol] 140 mmol/L 136-145 [facility] TIBCOrdered By: Desiree harvye on 04-01-2024 Total Iron Binding Capacity 348 ug/dL 250-450 [facility] TSH QnOrdered By: Desiree uribe on 04-01-2024 Thyroid Stimulating Hormone (TSH) 3.250 uIU/mL 0.358-3.740 [facility] Thyroid Stim Hormone (TSH)on 04-01-2024 TSH 3.250 uIU/mL Normal 0.358-3.740 [facility] Comment on above: Performed By: #### L 100.0100, L500.4050, L501.9520, L503.6030, L503.6550, L503.0105 ####[facility] [address] [place], [address] Total proteinOrdered By: Hermes Tapia on 04-01-2024 Protein [Mass/Vol] 8.0 g/dL 6.4-8.2 [facility] Vitamin B12on 04-01-2024 Cobalamin (Vitamin B12) [Mass/Vol] 550 pg/mL Normal 211-911 [facility] Comment on above: Performed By: #### L 100.0100, L500.4050, L501.9520, L503.6030, L503.6550, L503.0105 ####[facility] [address] [place], [address] Vitamin B12 measurementOrder ed By: Desiree Regina on 04-01-2024 Cobalamin (Vitamin B12) [Mass/Vol] 550 pg/mL 211-911 [facility] White blood cell (WBC) count Ordered By: Desiree Tapia on 04-01-2024 WBC (Bld) [#/Vol] 5.2 10*3/uL 4.4-11.0 [facility] Neurology Visit Reporton Neurology Visit Report [facility] [address] [facility] [address] [place] [address] OFFICE VISIT Date of Service: 03/22/24 MR#: [id number] Acct: [id number] Name: SANDIE WAGGONER DAWSON Rep #: [id number] : 1945 Provider: Dr. Surendra vergara MD Age/Sex: 78/F Location: [facility]. Status: Signed HPI HPI Chief Complaint: Fatigue, anemia Details: Interim History: Sandie returns for follow-up visit. She has a history of hypertension, diabetes mellitus, gastroesophageal reflux disease, polio at the age of 2 years manifesting with bilateral lower extremity weakness with subsequent postpolio syndrome and right thalamic ischemic stroke in August 2021. Her right thalamic ischemic stroke in August 2021 manifested with acute onset left-sided oral/perioral numbness, left hand numbness and gait imbalance. She did not seek medical attention at the time of onset of her symptoms but presented to the hospital on 09/09/2021 and on evaluation with head MRI was found to have an acute right thalamic infarct. She had been taking aspirin 81 mg every other day at the time that her stroke occurred. She was then treated with dual antiplatelet therapy (aspirin 81 mg daily and clopidogrel 75 mg daily for 3 weeks). Clopidogrel was then discontinued and she has subsequently took aspirin 81 mg daily for a period of time. She then developed erosive gastropathy and associated bleeding which was treated with a heater probe in December 2023. Omeprazole was initiated. On her own she reduced her dose of aspirin to 81 mg every other day. She was started on atorvastatin. She was previously noted to have iron deficiency anemia. She did not tolerate an oral iron supplement (this caused constipation). Her last hemoglobin, hematocrit, iron and ferritin (November 2023) were normal. She has not had any symptoms suggestive of recurrent cerebrovascular ischemia since the stroke in August 2021 and does not have any history of symptomatic stroke prior to August 2021. Her left hand numbness resolved after about 2 months. She has continued to have left-sided perioral numbness. Around November 2021, she developed right-sided facial shingles in the periorbital region. The shingles did not affect the eye directly. She has seen an survey cad technician. She was treated with a course of prednisone and valacyclovir. 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 She began to have worsening of her bilateral lower extremity weakness around 2020, and prior to her stroke was using a cane. Following her stroke, she has been using a rollator or furniture support to ambulate. In the past, she had had a right orthotic shoe and right lower extremity brace however she no longer uses these. She uses shoe insoles. She has had chronic distal bilateral lower extremity edema. She did not like to use compression stockings. She has chronic pain in the feet and ankles that is worse when she ambulates and subsides when she is at rest. She has been having some numbness in the toes. She takes acetaminophen and vokw-hcq-lerfbpg ibuprofen once or twice daily and this has been effective in treating her pain in the feet and ankles. She has bilateral heel contractures (right greater than left) and elevated foot arches. In the past, she had some low back pain that radiated to the hips however the pain in these regions has diminished. She has had some swallowing difficulty. She has peripheral vascular disease. She was evaluated at a vascular surgeon's office in April 2023. She has not had claudication. A walking program was recommended. Continuation of aspirin and a statin were recommended. A one year follow-up was planned. Left ankle x-rays report from February 2022 states that poor delineation with cortical thinning of the medial talus and calcaneus with overlying soft tissue swelling was noted; correlate with clinical suspicion for infection. Clinically, my suspicion for infection was low however a podiatry referral (Talialauren Torres D.P.M.) was made however the patient did not see a special needs nanny. Right ankle x-rays revealed mild soft tissue swelling and demineralized bones. Right foot x-rays revealed mildly sclerotic appearance of the first metatarsal. The patient was contacted regarding the demineralization noted on her above x-rays and she planned on following up with her primary care physician to schedule a bone density test. She has had fatigue; more recently however she reports having improvement of her energy level. She takes levothyroxine for hypothyroidism. A daily oral B12 supplementation was of some benefit for her fatigue. Monthly B12 injections for her fatigue lost efficacy and she no longer receives these. She has had right shoulder/periscapular region sharp pain since February 2022. She has not had a right shoulder/torso rash. The symptoms may be due to shingles without associated rash and now her martin (more content not included)... Normal [facility] Urine Cultureon 01-13-2024 URC Klebsiella pneumonia e sp pneum [place] Count >100,000 Klebsiella pneumoniae sp pneum: REACTION Ampicillin Islt BRISSA Ampicillin+Sulbac Islt BRISSA 4 S ceFAZolin Islt BRISSA <=4 S Cefepime Islt BRISSA <=0.12 S cefTRIAXone Islt BRISSA <=0.25 S Ciprofloxacin Islt BRISSA <=0.25 S B-Lactamase Extended Susc Islt NEG Gentamicin Islt BRISSA <=1 S Imipenem Islt BRISSA 0.5 S levoFLOXacin Islt BRISSA <=0.12 S Nitrofurantoin Islt BRISSA 64 I Pip+Tazo Islt BRISSA <=4 S Tobramycin Islt BRISSA <=1 S TMP SMX Islt BRISSA <=20 S Normal [facility] Comment on above: Performed By: #### M 100.2200 ####[facility] [address] [place], [place], [id number] Urine cultureOrdered By: Hermes Tapia on 01-11-2024 Bacteria identified Cx Nom (U) Klebsiella pneumoniae sp pneum Abnormal [facility] Bacteria identified Cx Nom (U) Klebsiella pneumoniae sp pneum Abnormal [facility] Bedside Glucoseon 01-04-2024 FINGERSTICK GLU 99 mg/dL Normal 74-106 [facility] Comment on above: Result Comment: TORY GEMENT OF PATIENT CARE PER NURSING PROTOCOL Performed By: #### L 501.080 ####[facility] [address] [place], [address] EGD Reporton 01-04-2024 EGD Report [facility] Medical Records Department [address] [place] [address] EGD Report MR#: [id number] Acct: [id number] Name: SANDIE WAGGONER Rep #: [id number] : 1945 78 From: Moy Ramos DO PCP: Dr. Desiree Tapia MD Status:[facility] Patient Name: Sandie Waggoner Procedure Date: 01/04/2024 8:12 AM Date of : 1945 Age: 78 Procedure: Upper GI endoscopy Indications: Iron deficiency anemia, Dysphagia Providers: Moy Ramos DO Referring MD: Desiree Tapia Medicines: Monitored Anesthesia Care Patient Profile: This is an 78 year old female. Refer to note in patient chart for documentation of history and physical. Patient has symptoms of chronic dysphagia and acute dyspepsia. Complications: No immediate complications. Procedure: Pre-Anesthesia Assessment: - Prior to the procedure, a History and Physical was performed, and patient medications and allergies were reviewed. The patient is competent. The risks and benefits of the procedure and the sedation options and risks were discussed with the patient. All questions were answered and informed consent was obtained. Patient identification and proposed procedure were verified by the physician in the pre-procedure area. Mental Status Examination: alert and oriented. Airway Examination: normal oropharyngeal airway and neck mobility. Prophylactic Antibiotics: The patient does not require prophylactic antibiotics. Prior Anticoagulants: The patient has taken no anticoagulant or antiplatelet agents except for NSAID medication. ASA Grade Assessment: II - A patient with mild systemic disease. After reviewing the risks and benefits, the patient was deemed in satisfactory condition to undergo the procedure. The anesthesia plan was to use monitored anesthesia care (MAC). Immediately prior to administration of medications, the patient was re-assessed for adequacy to receive sedatives. The heart rate, respiratory rate, oxygen saturations, blood pressure, adequacy of pulmonary ventilation, and response to care were monitored throughout the procedure. The physical status of the patient was re-assessed after the procedure. After obtaining informed consent, the endoscope was passed under direct vision. Throughout the procedure, the patient's blood pressure, pulse, and oxygen saturations were monitored continuously. The gastroscope was introduced through the mouth, and advanced to the second part of duodenum. The upper GI endoscopy was accomplished without difficulty. The patient tolerated the procedure well. Scope In: 8:18:29 AM Scope Out: 8:24:59 AM Total Procedure Duration Time 0 hours 6 minutes 30 seconds Findings: No endoscopic abnormality was evident in the esophagus to explain the patient's complaint of dysphagia. A small hiatal hernia was present. Diffuse moderate inflammation characterized by erosions, erythema and friability was found in the cardia, in the gastric fundus and in the gastric body. Biopsies were taken with a cold forceps for histology. Verification of patient identification for the specimen was done. Estimated blood loss was minimal. Biopsies were taken with a cold forceps for Helicobacter pylori testing. Verification of patient identification for the specimen was done. Estimated blood loss was minimal. A few localized 7 mm erosions with stigmata of recent bleeding were found in the gastric body and on the lesser curvature of the stomach. Coagulation for hemostasis using heater probe was successful. Estimated blood loss was minimal. Patchy moderate inflammation characterized by friability and granularity was found in the duodenal bulb and in the first portion of the duodenum. Biopsies were taken with a cold forceps for histology. Verification of patient identification for the specimen was done. Estimated blood loss was minimal. Impression: - No endoscopic esophageal abnormality to explain patient's dysphagia. - Small hiatal hernia. - Chronic gastritis. Biopsied. - Erosive gastropathy with stigmata of recent bleeding. Treated with a heater probe. - Chronic duodenitis. Biopsied. Recommendation: - Discharge patient to home. - Resume previous diet. - Continue present medications except aspirin and vitamin C - Await pathology results. - Start omeprazole 40 mg p.o. twice daily x 12 weeks. Procedure Code(s): --- Professional --- 75999, 59, Esophagogastroduodenosc opy, flexible, transoral; with control of bleeding, any method 41685, 51, Esophagogastroduodenosc opy, flexible, transoral; with biopsy, single or multiple CPT copyright 2021 [employer]. All rights reserved. The codes documented in this report are preliminary and upon sql server architect review may be revised to meet current compliance requirements. Moy Ramos DO 01/04/2024 8:3 (more content not included)... Normal [facility] de[facility]dered By: Moy Ramos on 01-04-2024 Bedside Glucose (Misc Panel) 99 mg/dL 74-106 [facility] Comment on above: MANAGEMENT OF PATIEN T CARE PER NURSING PROTOCOL H Pylori (initial)on 024 H Pylori (initial) --- Patient Age/Sex Location Account Attending Physician SANDIE WAGGONER 78/F EN [id number] Moy Ramos DO Specimen: [id number] Received: 01/04/24 Status: EDIS [facility]cock Num: [id number] Spec Type: IMMUNO Subm Dr: Moy Ramos DO PHYSICIAN INSTITUTION [place] [address] SPECIMEN INFORMATION: Tissue Source: B- Gastric body biopsy Clinical Info: Anemia, dysphagia Specimen Number: [id number] CPT code: 08962 METHODOLOGY: Deparaffinized sections of prefer/formalin-fixed tissue or PAP/DQ stained slides are incubated with monoclonal/polyclonal antibodies/oligonucleot jenaro probes. Localization is made via biotin free immunoperoxidase method. Appropriate controls are performed and reacted as expected. Results on target cell population are indicated in the following table: RESULTS: ANTIBODY / CLONE RESULT Block B H Pylori (polyclonal) negative These tests were developed and their performance characteristics determined by [facility]. They may not have been cleared or approved by the U.S. Food and Drug Administration. The FDA has determined that such clearance or approval is not necessary. The above immunohistochemical/colt Ephraim markers are ordered and reviewed by the Pathologist. INTERPRETATION: B. Gastric body, biopsy: Negative for Helicobacter pylori organisms. AM. 01/05/2024 Signed (signature on file) Dr. Matt Zaman, 01/05/24 1412 Normal [facility] Comment on above: Performed By: #### P H.PYLORI #### [facility] [address] [facility]. [place], [place], [address] MR/POSTOP.Lissa 01-04-2024 MR/POSTOP.[facility] Medical Records Department [address] [place] [address] Anesthesia Postop Eval I 01/04/24 0832 MR#: [id number] Acct: [id number] Name: SANDIE WAGGONER DAWSON Rep #: [id number] : 1945 78 From: Stanislav Altamirano PCP: Dr. Desiree Tapia MD Status:REG SDC Y Race: C Location: [place] [address] Anesthesia: Postop Eval I Current Vital Signs Temperature: 97 F Pulse Rate: 67 Blood Pressure: 123/52 Respiratory Rate: 18 Pulse Ox: 95 Oxygen Delivery Method: Room Air Assessment Airway patent: Yes Spontaneous unlabored respirations: Yes Mental status: Asleep nausea: No Vomiting: No Anesthesia Complication: No Fluid Hydration Crystalloid volume administer (ml): 30 Total IV fluid infused: 30 Progress Note Anesthesia document: Postop Eval 1 completed: Yes 01/04/24832 Stanislav Wareer Robertigner Signature: Date CC: Signed Normal [facility]/[id number] 01-04-2024 /[address] Medical Records Department [address] [place] [address] Anesthesia Postop Eval II 01/04/24921 MR#: [id number] Acct: [id number] Name: SANDIE WAGGONER DAWSON Rep #: [id number] : 1945 78 From: Marcus Jo MD PCP: Dr. Desiree Tapia MD Status:[facility] Y Race: C Location: EN Anesthesia Postop Eval I Sum Postop Eval Completion status Anesthesia document: Postop Eval 1 completed: Yes Anesthesia Postop Eval I Summary Anesthesia Postop Eval I Summary: Anesthesia Postop Eval I: Assessment Summary Airway patent Yes 01/04/24 08:33 [email or web address] Spontaneous unlabored Yes 01/04/24 08:33 [email or web address] respirations Mental status Asleep 01/04/24 08:33 [email or web address] nausea No 01/04/24 08:33 [email or web address] Vomiting No 01/04/24 08:33 [email or web address] Anesthesia Postop Eval I: Fluid Summary Crystalloid volume administer 30 01/04/24 08:33 [email or web address] (ml) Colloids volume administered ( ml) Blood Product volume administered (ml) Total IV fluid infused 30 01/04/24 08:33 [email or web address] Anesthesia Postop Eval I: Summary Notes Anesthesia Complication No 01/04/24 08:33 [email or web address] Anesthesia Complication Comment: Post-operative progress note Anesthesia: Postop Eval II Evaluation Mental status: Awake Pain Level: 0 nausea: No Vomiting: No 01/04/24921 Date Marcus Chauhan Signature: Date CC: Signed Normal [facility] Surgery Specimen Level Kelby 01-04-2024 Surgery Specimen Level IV Patient Age/Sex Location Account Attending Physician SANDIE WAGGONER 78/F EN [id number] Moy Ramos DO Specimen: [id number] Received: 01/04/24 Status: EDIS Babcock Num: [id number] Spec Type: EGD BIOPSY Subm Dr: Moy Ramos DO HEADER OPERATION: EGD with biopsy, hemostasis PRE-OP DIAGNOSIS: Anemia, dysphagia TISSUE SUBMITTED: A- Duodenum biopsy, B- Gastric body biopsy MICROSCOPIC DIAGNOSIS A. Duodenum, biopsy: Minimal non-specific chronic inflammation. B. Gastric body, biopsy: Chronic inflammation. See comment. AM. 01/05/2024 COMMENT B. The results of immunohistochemistry for Helicobacter pylori will be reported separately ([id number]). MICROSCOPIC DESCRIPTION Slides are reviewed. GROSS DESCRIPTION A. Received in fixative is one container labeled with the patient's name and designated Duodenum biopsy. The specimen consists of one irregular fragment of light carlson soft tissue that measures 0.5 x 0.5 x 0.1 cm. The specimen is totally submitted in one cassette. B. Received in fixative is one container labeled with the patient's name and designated Gastric body biopsy. The specimen consists of two irregular fragments of light carlson soft tissue that in aggregate measure 0.6 x 0.5 x 0.1 cm. The specimen is totally submitted in one cassette. AM. 01/04/2024 TC:3 CPT:66577d8 Patient Age/Sex Location Account Attending Physician SANDIE WAGGONER 78/F EN [id number] Moy Ramos DO Signed (signature on file) Dr. Matt Zaman DO 01/05/24 1410 Normal [facility] Comment on above: Performed By: #### P SUIV ####[facility] [address] [place], [place], [id number] Gastroenterology Visit Repor ton 11-26-2023 Gastroenterology Visit Report [facility] [address] [place] [address] OFFICE VISIT Date of Service: 11/26/23 MR#: [id number] Acct: [id number] Name: SANDIE WAGGONER DAWSON Rep #: [id number] : 1945 Provider: SUZETTE Carlson Age/Sex: 78/F Location: [facility] Status: Signed Intake Vital Signs 11/18/23 13:52 Height 5 ft 1 in Weight: 152 lb 8 oz BMI 28.8 BP 132/64 H Blood Pressure Location Lt brachial Position Sitting Respiration 18 Pulse 81 Pulse Source Monitor Temp 98.9 F Pulse Oximetry (%) 97 Oxygen Delivery Method room air Intake Visit Reasons: Dysphagia Chief Complaint: dysphagia, anemia Allergies Sulfa (Sulfonamide Antibiotics) Allergy (Unknown, Verified 11/18/23 13:59) Hives adhesive tape Adverse Reaction (Intermediate, Verified 11/18/23 13:59) Rash latex Adverse Reaction (Verified 11/18/23 13:59) skin reaction Medications ???Medication ???Instructions ???Recorded ???Confirmed ???Type atorvastatin 40 mg tablet 40 mg PO QHS #30 tabs 09/10/21 11/26/23 Rx amlodipine 5 mg tablet 10 mg PO QHS htn 02/20/22 11/26/23 History losartan 100 mg tablet 100 mg PO DAILY 05/07/22 11/26/23 History miscellaneous medical supply #2 ea 07/17/22 11/26/23 Rx glipizide 5 mg tablet 5 mg PO DAILY diabetes 08/05/23 11/26/23 History insulin glargine 100 unit/mL (3 24 unit subcut QHS dm 08/05/23 11/26/23 History mL) subcutaneous pen (Lantus Solostar U-100 Insulin) ketoconazole 2 % shampoo 1 applic topical 3XW 08/05/23 11/26/23 History metformin 500 mg tablet 1,000 mg PO BID diabetes 08/05/23 11/26/23 History acetaminophen 500 mg tablet 1,000 mg PO Q6H PRN 08/19/23 11/26/23 History (Tylenol Extra Strength) aspirin 81 mg tablet,delayed 81 mg PO DAILY 08/19/23 11/26/23 History release (Adult Low Dose Aspirin) diclofenac sodium 1 % topical gel 2 g topical ONCE 08/19/23 11/26/23 History (Arthritis Pain (diclofenac)) ascorbic acid (vitamin C) 500 mg 500 mg PO .QD 09/29/23 11/26/23 History capsule cyanocobalamin (vitamin B-12) 1,000 mcg PO DAILY 09/29/23 11/26/23 History 1,000 mcg capsule ferrous sulfate 325 mg (65 mg 325 mg PO DAILY 09/29/23 11/26/23 History iron) tablet gabapentin 100 mg capsule 200 mg (2 x 100 mg) PO QHS #180 09/29/23 11/26/23 Rx caps levothyroxine 25 mcg tablet 25 mcg PO DAILY 09/29/23 11/26/23 History Have you fallen in the past year?: No Nurse's Note: OV 11.26.23 [facility] History (Updated 11/18/23 @ 14:49 by Mitali Pandya BLADE CHANGER, BLADE CHANGER-C) Dysphagia Pancytopenia Chronic renal failure Iron deficiency anemia TIA (transient ischemic attack) Thalamic infarct, acute Diabetic retinopathy Anemia Stroke Shingles Neuropathy High cholesterol Cataracts, bilateral Arthritis Kidney stones GERD (gastroesophageal reflux disease) Rosacea Post-polio syndrome History of poliomyelitis HTN (hypertension) Diabetes mellitus Surgical History Cataract Gallstones Hx of lithotripsy Family History Father Diabetes Hypertension High cholesterol Angina at rest Heart disease Kidney disease Mother Bowel disease Grandmother CVA (cerebral vascular accident) Aunt CVA (cerebral vascular accident) Social History household members: spouse current occupational status: retired Smoking Status: Never smoker second hand exposure: No alcohol intake: never substance use type: does not use caffeine: Yes Type: coffee Number of servings: 1 what type of physical activity do you participate in: other frequency: 1-2 times per week elijah/druze: Quaker seatbelt use: always HPI HPI Chief Complaint: dysphagia, anemia Details: SANDIE WAGGONER, is a 78 F who presents to the office today for establishment with [facility]. Pt has a PMHx of chronic renal failure, anemia, diabetic retinopathy, carotid artery stenosis, PAD and pancytopenia. Pt was referred here from hematology due to occasional problems with swallowing and chronic iron deficiency anemia. She tells me she will have episodes of choking on food up to 3x per week. She will choke on both solids and liquids. Her most recent episode of while eating a uzbek fernandez. She is not too concerned about these symptoms but wanted to be evaluated. She does take oral iron so her stools are dark. She would not be able to tell if she had blood in her stool. She was struggling with diarrhea in the past but the iron has fixed that. Her last colonoscopy was probably [address] Dang and she reports it was normal. She does not recall ever having an EGD. ROS Const Constitutional: Positive for fatigue; No anorexia, fever(s), weig (more content not included)... Normal [facility] Basic Metabolic Profile (BMP )on 11-18-2023 BUN/CRE 15.3 RATIO Normal - [facility] Comment on above: Performed By: #### L 503.6550, L100.0100, L500.2500, L100.9950, L503.6030 ####[facility] [address] [place], [address] CA,Total 9.2 mg/dL Normal 8.5-10.1 [facility] Comment on above: Performed By: #### L 503.6550, L100.0100, L500.2500, L100.9950, L503.6030 ####[facility] [address] [place], [address] Chloride [Moles/Vol] 112 mmol/L High 98-107 [facility] Comment on above: Performed By: #### L 503.6550, L100.0100, L500.2500, L100.9950, L503.6030 ####[facility] [address] [place], [address] CO2 [Moles/Vol] 20.0 mmol/L Low 21.0-32.0 [facility] Comment on above: Performed By: #### L 503.6550, L100.0100, L500.2500, L100.9950, L503.6030 ####[facility] [address] [place], [address] Creatinine [Mass/Vol] 1.18 mg/dL High 0.55-1.02 [facility] Comment on above: Result Comment: The validity of the calculated GFR GFRAA in patients over 70 years has not been determined. Clinical correlation is essential. Performed By: #### L 503.6550, L100.0100, L500.2500, L100.9950, L503.6030 ####[facility] [address] [place], [address] EST GFR - AA 57 mL/min Low >60 [facility] Comment on above: Result Comment: Afri can Barbadian GFR Calc Performed By: #### L 503.6550, L100.0100, L500.2500, L100.9950, L503.6030 ####[facility] [address] [place], [address] GAP 9 Normal 5-15 [facility] Comment on above: Performed By: #### L 503.6550, L100.0100, L500.2500, L100.9950, L503.6030 ####[facility] [address] [place], [address] GFR/1.73 sq M.predicted among non-blacks MDRD (S/P/Bld) [Vol rate/Area] 47 mL/min/{1.73_m2} Low >60 [facility] Comment on above: Result Comment: Non- GFR Calc Performed By: #### L 503.6550, L100.0100, L500.2500, L100.9950, L503.6030 ####[facility] [address] [place], [address] Glucose [Mass/Vol] 172 mg/dL High 74-106 [facility] Comment on above: Result Comment: Fast ing Glucose result greater than or equal to 126 mg/dL suggests DIABETES MELLITUS per A.D.A. criteria. Performed By: #### L 503.6550, L100.0100, L500.2500, L100.9950, L503.6030 ####[facility] [address] [place], [address] Potassium [Moles/Vol] 4.2 mmol/L Normal 3.5-5.1 [facility] Comment on above: Performed By: #### L 503.6550, L100.0100, L500.2500, L100.9950, L503.6030 ####[facility] [address] [place], [address] Sodium [Moles/Vol] 140 mmol/L Normal 136-145 [facility] Comment on above: Performed By: #### L 503.6550, L100.0100, L500.2500, L100.9950, L503.6030 ####[facility] [address] [place], [address] Urea nitrogen [Mass/Vol] 18 mg/dL Normal 7-18 [facility] Comment on above: Performed By: #### L 503.6550, L100.0100, L500.2500, L100.9950, L503.6030 ####[facility] [address] [place], [address] CBC W/Diff, Automatedon 10-0 PLT EST SLT DEC Normal ADEQ [facility] Comment on above: Performed By: #### L 503.6550, L100.0100, L500.2500, L100.9950, L503.6030 ####[facility] [address] [place], [address] Ferritinon 11-18-2023 Ferritin [Mass/Vol] 50 ng/mL Normal 8-252 [facility] Comment on above: Performed By: #### L 503.6550, L100.0100, L500.2500, L100.9950, L503.6030 ####[facility] [address] [place], [address] Iron+Iron Binding Capacityon 11-18-2023 Iron [Mass/Vol] 68 ug/dL Normal 50-170 [facility] Comment on above: Performed By: #### L 503.6550, L100.0100, L500.2500, L100.9950, L503.6030 ####[facility] [address] [place], [address] IRON SATURATION 14.8 Low 15.0-55.0 [facility] Comment on above: Performed By: #### L 503.6550, L100.0100, L500.2500, L100.9950, L503.6030 ####[facility] [address] [place], [address] TIBC 460 ug/dL High 250-450 [facility] Comment on above: Performed By: #### L 503.6550, L100.0100, L500.2500, L100.9950, L503.6030 ####[facility] [address] [place], [address] Oncology Visit Reporton 10-0 Oncology Visit Report [facility] [address] [place] [address] OFFICE VISIT Date of Service: 11/18/23 1350 MR#: [id number] Acct: [id number] Name: SANDIE WAGGONER DAWSON Rep #: [id number] : 1945 From: Mitali Pandya NP BLADE CHANGER -C Age/Sex: 78/F Location: [facility] Status: Signed HPI Subjective Date of Service 11/18/23 Chief Complaint Fatigue, anemia History of Present Illness 78-year-old female who presents with progressively increasing fatigue over the course of the several months in 2023. She was noted to have developed a normocytic anemia. She was started on a B12 supplement but no improvement. Referred to hematology for further investigation. Began PO iron August 2023. Interval History The patient is presenting to clinic accompanied by spouse for a 3 month follow up. confirms good adherence and tolerance to PO iron with vitamin C, was causing mild GI upset so she began taking at HS. Restarted levothyroxine with pcp and decreased gabapentin and she reports an improvement of fatigue. Stools are dark-black since beginning the iron. Typically produces 1-3 BMs per day. No diarrhea. Was on PPI for several years, h/o hiatal hernia but is no longer. Reports occasional dysphagia, chokes on both solid foods and liquids, symptom seems to be more frequent of late. Last colonoscopy was done by Dr. Dang unsure of date. Specifically denies weight loss, decreased appetite, CP, palpitations, cough, SOB, abd pain, pain of her extremities. [facility] Medical History Pancytopenia Chronic renal failure Iron deficiency anemia TIA (transient ischemic attack) Thalamic infarct, acute Diabetic retinopathy Anemia Stroke Shingles Neuropathy High cholesterol Cataracts, bilateral Arthritis Kidney stones GERD (gastroesophageal reflux disease) Rosacea Post-polio syndrome History of poliomyelitis HTN (hypertension) Diabetes mellitus Surgical History Cataract Gallstones Hx of lithotripsy Family History Father Diabetes Hypertension High cholesterol Angina at rest Heart disease Kidney disease Mother Bowel disease Grandmother CVA (cerebral vascular accident) Aunt CVA (cerebral vascular accident) Social History household members: spouse current occupational status: retired Smoking Status: Never smoker second hand exposure: No alcohol intake: never substance use type: does not use caffeine: Yes Type: coffee Number of servings: 1 what type of physical activity do you participate in: other frequency: 1-2 times per week elijah/druze: Quaker seatbelt use: always ROS ROS Narrative Negative except as documented in the interval HPI Intake Vital Signs 08/19/23 15:13 09/29/23 14:28 11/18/23 13:52 Height 5 ft 1 in 5 ft 1 in 5 ft 1 in Weight: 152 lb 8 oz BMI 28.8 BP 132/64 H Blood Pressure Location Lt brachial Position Sitting Respiration 18 Pulse 81 Pulse Source Monitor Temp 98.9 F Temperature Source Temporal Artery Pulse Oximetry (%) 97 Oxygen Delivery Method room air Intake Is patient in pain?: No Allergies Sulfa (Sulfonamide Antibiotics) Allergy (Unknown, Verified 11/18/23 13:59) Hives adhesive tape Adverse Reaction (Intermediate, Verified 11/18/23 13:59) Rash latex Adverse Reaction (Verified 11/18/23 13:59) skin reaction Medications ???Medication ???Instructions ???Recorded ???Confirmed ???Type atorvastatin 40 mg tablet 40 mg PO QHS #30 tabs 09/10/21 11/18/23 Rx amlodipine 5 mg tablet 10 mg PO QHS htn 02/20/22 11/18/23 History losartan 100 mg tablet 100 mg PO DAILY 05/07/22 11/18/23 History miscellaneous medical supply #2 ea 07/17/22 11/18/23 Rx glipizide 5 mg tablet 5 mg PO DAILY diabetes 08/05/23 11/18/23 History insulin glargine 100 unit/mL (3 24 unit subcut QHS dm 08/05/23 11/18/23 History mL) subcutaneous pen (Lantus Solostar U-100 Insulin) ketoconazole 2 % shampoo 1 applic topical 3XW 08/05/23 11/18/23 History metformin 500 mg tablet 1,000 mg PO BID diabetes 08/05/23 11/18/23 History acetaminophen 500 mg tablet 1,000 mg PO Q6H PRN 08/19/23 11/18/23 History (Tylenol Extra Strength) aspirin 81 mg tablet,delayed 81 mg PO DAILY 08/19/23 11/18/23 History release (Adult Low Dose Aspirin) diclofenac sodium 1 % topical gel 2 g topical ONCE 08/19/23 11/18/23 History (Arthritis Pain (diclofenac)) ascorbic acid (vitamin C) 500 mg 500 mg PO .QD 09/29/23 11/18/23 History capsule cyanocobalamin (vitamin B-12) 1,000 mcg PO DAILY 09/29/23 11/18/23 History 1,000 mcg capsule ferrous sulfate 325 mg (65 mg 325 m (more content not included)... Normal [facility] Retic Panelon 11-18-2023 IM RET FRACTION 13.00 Normal 3.00-15.90 [facility] Comment on above: Performed By: #### L 503.6550, L100.0100, L500.2500, L100.9950, L503.6030 ####[facility] [address] [place], [address] IPF 7.3 Normal 1.0-7.9 [facility] Comment on above: Result Comment: Low PLT + Low IPF suggest a bone marrow production disorder Low PLT + high IPF suggests peripheral destruction (e.g.ITP, TTP, HIT, DIC, autoimmune) or bone marrow recovery Trending of serial IPF measurements is recommended when evaluating for bone marrow respones Value above normal range indicates an increase in RBC cellular response from bone marrow. Performed By: #### L 503.6550, L100.0100, L500.2500, L100.9950, L503.6030 ####[facility] [address] [place], [address] RET-HE 36.4 pg High 30-35 [facility] Comment on above: Performed By: #### L 503.6550, L100.0100, L500.2500, L100.9950, L503.6030 ####[facility] [address] [place], [address] Retic Count 2.55 High 0.5-1.5 [facility] Comment on above: Performed By: #### L 503.6550, L100.0100, L500.2500, L100.9950, L503.6030 ####[facility] [address] [place], [address] CBC W/Diff, Automatedon 10-11 Absolute Lymph 0.53 X10 3/uL Low 0.83-4.51 [facility] Comment on above: Performed By: #### L 503.0105, L501.9520, L100.0100 ####[facility] [address] [place], [address] Absolute Neut 2.2 X10 3/uL Normal 2.0-7.7 [facility] Comment on above: Performed By: #### L 503.0105, L501.9520, L100.0100 ####[facility] [address] [place], [address] Basophils/100 WBC (Bld) 1.3 % High 0-1 [facility] Comment on above: Performed By: #### L 503.0105, L501.9520, L100.0100 ####[facility] [address] [place], [address] Eosinophils/100 WBC (Bld) 2.9 % Normal 0-5 [facility] Comment on above: Performed By: #### L 503.0105, L501.9520, L100.0100 ####[facility] [address] [place], [address] Erythrocyte distribution width (RBC) [Ratio] 14.5 % Normal 11.6-14.6 [facility] Comment on above: Performed By: #### L 503.0105, L501.9520, L100.0100 ####[facility] [address] [place], [address] Hematocrit (Bld) [Volume fraction] 38.5 % Normal 37-47 [facility] Comment on above: Performed By: #### L 503.0105, L501.9520, L100.0100 ####[facility] [address] [place], [address] Hemoglobin (Bld) [Mass/Vol] 12.8 g/dL Normal 12.0-15.0 [facility] Comment on above: Performed By: #### L 503.0105, L501.9520, L100.0100 ####[facility] [address] [place], [address] IG% 0.600 Normal 0.0-0.9 [facility] Comment on above: Result Comment: IG% - Immature Granulocytes (promyelocytes, myelocytes and metamyelocytes) > 1% indicates that a LEFT SHIFT is Present. Performed By: #### L 503.0105, L501.9520, L100.0100 ####[facility] [address] [place], [address] Lymphocytes/100 WBC (Bld) 17.1 % Low 19-41 [facility] Comment on above: Performed By: #### L 503.0105, L501.9520, L100.0100 ####[facility] [address] [place], [address] MCH (RBC) [Entitic mass] 31.6 pg Normal 27.0-32.0 [facility] Comment on above: Performed By: #### L 503.0105, L501.9520, L100.0100 ####[facility] [address] [place], [address] MCHC (RBC) [Mass/Vol] 33.2 g/dL Normal 32-36 [facility] Comment on above: Performed By: #### L 503.0105, L501.9520, L100.0100 ####[facility] [address] [place], [address] MCV (RBC) [Entitic vol] 95.1 fL Normal 81-99 [facility] Comment on above: Performed By: #### L 503.0105, L501.9520, L100.0100 ####[facility] [address] [place], [address] Monocytes/100 WBC (Bld) 7.7 % Normal 0-10 [facility] Comment on above: Performed By: #### L 503.0105, L501.9520, L100.0100 ####[facility] [address] [place], [address] Neutrophils/100 WBC (Bld) 70.4 % High 47-70 [facility] Comment on above: Performed By: #### L 503.0105, L501.20, L100.0100 ####[facility] [address] [place], [address] Nucleated RBC (Bld) [#/Vol] 0 10*3/uL Normal 0-5 [facility] Comment on above: Performed By: #### L 503.0105, L501.9520, L100.0100 ####[facility] [address] [place], [address] Platelet mean volume (Bld) [Entitic vol] 11.4 fL Normal 6.2-12.0 [facility] Comment on above: Performed By: #### L 503.0105, L501.9520, L100.0100 ####[facility] [address] [place], [address] Platelets (Bld) [#/Vol] 125 10*3/uL Low 150-450 [facility] Comment on above: Performed By: #### L 503.0105, L501.20, L100.0100 ####[facility] [address] [place], [address] RBC (Bld) [#/Vol] 4.05 10*6/uL Low 4.2-5.4 [facility] Comment on above: Performed By: #### L 503.0105, L501.20, L100.0100 ####[facility] [address] [place], [address] RDW SD 50.6 fl High 35.1-43.9 [facility] Comment on above: Performed By: #### L 503.0105, L501.9520, L100.0100 ####[facility] [address] [place], [address] WBC (Bld) [#/Vol] 3.1 10*3/uL Low 4.4-11.0 [facility] Comment on above: Performed By: #### L 503.0105, L501.9520, L100.0100 ####[facility] [address] [place], [address] Thyroid Stim Hormone (TSH)on 11-03-2023 TSH 2.870 uIU/mL Normal 0.358-3.740 [facility] Comment on above: Performed By: #### L 503.0105, L501.9520, L100.0100 ####[facility] [address] [place], [address] Vitamin B12on 11-03-2023 Cobalamin (Vitamin B12) [Mass/Vol] 807 pg/mL Normal 211-911 [facility] Comment on above: Performed By: #### L 503.0105, L501.9520, L100.0100 ####[facility] [address] [place], [address] Absolute lymphocyte countOrd ered By: Dr. Tapia on 05-20-2022 Lymphocytes Auto (Unsp spec) [#/Vol] 0.99 10*3/uL 0.83-4.51 [facility] Basophil percentageOrdered B y: Dr. Tapia on 05-20-2022 Basophils/100 WBC (Bld) 1.0 % 0-1 [facility] Chloride [Moles/Vol] 111 mmol/L 98-107 [facility] Eosinophils/100 WBC (Bld) 3.4 % 0-5 [facility] Glucose [Mass/Vol] 67 mg/dL 74-106 [facility] Neutrophils (Bld) [#/Vol] 4.3 10*3/uL 2.0-7.7 [facility] Neutrophils/100 WBC (Bld) 69.9 % 47-70 [facility] Potassium [Moles/Vol] 4.3 mmol/L 3.5-5.1 [facility] Sodium [Moles/Vol] 141 mmol/L 136-145 [facility] WBC (Bld) [#/Vol] 6.2 10*3/uL 4.4-11.0 [facility] Blood erythrocytes count (nu mber/volume)Ordered By: Dr. Tapia on 05-20-2022 RBC (Bld) [#/Vol] 3.74 10*6/uL 4.2-5.4 [facility] Blood hemoglobin measurement (mass/volume)Ordered By: Dr. Tapia on 05-20-2022 Hemoglobin (Bld) [Mass/Vol] 11.5 g/dL 12.0-15.0 [facility] Blood lymphocytes/100 leukoc ytesOrdered By: Dr. Tapia on 05-20-2022 Lymphocytes/100 WBC (Bld) 16.0 % 19-41 [facility] Blood monocytes/100 leukocyt esOrdered By: Dr. Tapia on 05-20-2022 Monocytes/100 WBC (Bld) 9.2 % 0-10 [facility] Blood platelet mean volumeOr dered By: Dr. Tapia on 05-20-2022 Platelet mean volume (Bld) [Entitic vol] 11.7 fL 6.2-12.0 [facility] Determination of erythrocyte mean corpuscular volume (MCV)Ordered By: Dr. Tapia on 05-20-2022 MCV (RBC) [Entitic vol] 97.1 fL 81-99 [facility] Hematocrit Auto (Bld) [Volum e fraction]Ordered By: Dr. Tapia on 05-20-2022 Hematocrit (Bld) [Volume fraction] 36.3 % 37-47 [facility] Laboratory - Chemistry and C hemistry - challengeOrdered By: Dr. Tapia on 05-20-2022 CO2 [Moles/Vol] 20.0 mmol/L 21.0-32.0 [facility] Cobalamin (Vitamin B12) [Mass/Vol] 442 pg/mL 211-911 [facility] Urea nitrogen/Creatinine [Mass ratio] 21.3 mg/mg 10-20 [facility] - Hematology and Cell countsOrdered By: Dr. Tapia on 05-20-2022 Erythrocyte distribution width (RBC) [Entitic vol] 49.1 fL 35.1-43.9 [facility] Erythrocyte distribution width (RBC) [Ratio] 13.8 % 11.6-14.6 [facility] Immature granulocytes/100 WBC (Bld) 0.500 % 0.0-0.9 [facility] Comment on above: IG% - Immature Granu locytes (promyelocytes, myelocytes and metamyelocytes) > 1% indicates that a LEFT SHIFT is Present. MCH (RBC) [Entitic mass] 30.7 pg 27.0-32.0 [facility] Nucleated RBC/100 WBC (Bld) [Ratio] 0 % 0-5 [facility] MCHC Auto (RBC) [Mass/Vol]Or dered By: Dr. Tapia on 05-20-2022 MCHC (RBC) [Mass/Vol] 31.7 g/dL 32-36 [facility] No Panel InformationOrdered By: Dr. Tapia on 05-20-2022 Estimated GFR (MDRD) Amer 55 mL/min >60 [facility] Comment on above: GFR Calc Estimated GFR (MDRD) Non-Af Amer 45 mL/min >60 [facility] Comment on above: Non- GFR Calc Thyroid Stimulating Hormone (TSH) 5.28 uIU/mL 0.358-3.74 [facility] Platelets bldOrdered By: Dr. Tapia on 05-20-2022 Platelets (Bld) [#/Vol] 161 10*3/uL 150-450 [facility] Serum or plasma calcium nick urement (mass/volume)Ordered By: Dr. Tapia on 05-20-2022 Calcium [Mass/Vol] 8.9 mg/dL 8.5-10.1 [facility] Serum or plasma creatinine m easurement (mass/volume)Ordered By: Dr. Tapia on 05-20-2022 Creatinine [Mass/Vol] 1.22 mg/dL 0.55-1.02 [facility] Comment on above: The validity of the calculated GFR & GFRAA in patients over 70 years has not been determined. Clinical correlation is essential. Serum or plasma urea nitroge n measurement (mass/volume)Ordered By: Dr. Tapia on 05-20-2022 Urea nitrogen [Mass/Vol] 26 mg/dL 7-18 [facility] Thin prep Papanicolaou smear with manual screeningOrdered By: Dr. Tapia on 05-20-2022 Thin prep Papanicolaou smear with manual screening 10 5-15 [facility] Whole blood hemoglobin A1c/t otal hemoglobin ratio (mass fraction)Ordered By: Dr. Tapia on 05-20-2022 HbA1c (Bld) [Mass fraction] 6.4 % 3.8-5.6 [facility] Comment on above: Normal < 5.7 % Predi abetic 5.7 - 6.4 % Diabetic >or= 6.5 % Please note range changes. Basophil percentageOrdered B y: Dr. Hidalgo on 02-25-2022 Bilirubin [Mass/Vol] 0.60 mg/dL 0.20-1.00 [facility] Comment on above: For patients on eltr ombopag therapy, use of Dimension [place] TBIL is not recommended. Chloride [Moles/Vol] 113 mmol/L 98-107 [facility] Glucose [Mass/Vol] 59 mg/dL 74-106 [facility] Potassium [Moles/Vol] 4.1 mmol/L 3.5-5.1 [facility] Protein [Mass/Vol] 7.4 g/dL 6.4-8.2 [facility] Sodium [Moles/Vol] 143 mmol/L 136-145 [facility] WBC (Bld) [#/Vol] 3.9 10*3/uL 4.4-11.0 [facility] Blood erythrocytes count (nu mber/volume)Ordered By: Dr. Hidalgo on 02-25-2022 RBC (Bld) [#/Vol] 3.81 10*6/uL 4.2-5.4 [facility] Blood hemoglobin measurement (mass/volume)Ordered By: Dr. Hidalgo on 02-25-2022 Hemoglobin (Bld) [Mass/Vol] 11.6 g/dL 12.0-15.0 [facility] Blood platelet mean volumeOr dered By: Dr. Hidalgo on 02-25-2022 Platelet mean volume (Bld) [Entitic vol] 11.5 fL 6.2-12.0 [facility] Determination of erythrocyte mean corpuscular volume (MCV)Ordered By: Dr. Hidalgo on 02-25-2022 MCV (RBC) [Entitic vol] 94.5 fL 81-99 [facility] Hematocrit Auto (Bld) [Volum e fraction]Ordered By: Dr. Hidalgo on 02-25-2022 Hematocrit (Bld) [Volume fraction] 36.0 % 37-47 [facility] - Chemistry and C hemistry - challengeOrdered By: Dr. Hidalgo on 02-25-2022 ALP [Catalytic activity/Vol] 120 U/L 45-117 [facility] ALT [Catalytic activity/Vol] 37 U/L 13-56 [facility] CO2 [Moles/Vol] 24.0 mmol/L 21.0-32.0 [facility] Cobalamin (Vitamin B12) [Mass/Vol] 428 pg/mL 211-911 [facility] Globulin (S) [Mass/Vol] 4.1 g/dL 2.2-4.2 [facility] Urea nitrogen/Creatinine [Mass ratio] 15.9 mg/mg 10-20 [facility] - Hematology and Cell countsOrdered By: Dr. Hidalgo on 02-25-2022 Erythrocyte distribution width (RBC) [Entitic vol] 45.1 fL 35.1-43.9 [facility] Erythrocyte distribution width (RBC) [Ratio] 13.1 % 11.6-14.6 [facility] MCH (RBC) [Entitic mass] 30.4 pg 27.0-32.0 [facility] MCHC Auto (RBC) [Mass/Vol]Or dered By: Dr. Hidalgo on 02-25-2022 MCHC (RBC) [Mass/Vol] 32.2 g/dL 32-36 [facility] No Panel InformationOrdered By: Dr. Hidalgo on 02-25-2022 Estimated GFR (MDRD) Amer 64 mL/min >60 [facility] Comment on above: GFR Calc Estimated GFR (MDRD) Non-Af Amer 53 mL/min >60 [facility] Comment on above: Non- GFR Calc Free Lambda Light Chains, Quant 40.0 mg/L 5.7-26.3 [facility] Thyroid Stimulating Hormone (TSH) 3.78 uIU/mL 0.358-3.74 [facility] Whole Blood Vitamin B1 Level 93.0 nmol/L 66.5-200.0 [facility] Comment on above: Performed at: - [address] [id number] Director: Grant Baires PhD, Phone: [phone] at: - [facility] [address] [id number] Director: Kota Wallace MD, Phone: [phone] Platelets bldOrdered By: Dr. Hidalgo on 02-25-2022 Platelets (Bld) [#/Vol] 131 10*3/uL 150-450 [facility] Serum immunoglobulin kappa l ight chains/immunoglobulin lambda light chains mass ratioOrdered By: Dr. Hidalgo on 02-25-2022 Immunoglobulin light chains.kappa/Immunoglob ulin light chains.lambda (S) [Mass ratio] 1.75 0.26-1.65 [facility] Serum or plasma albumin nick urement (mass/volume)Ordered By: Dr. Hidalgo on 02-25-2022 Albumin [Mass/Vol] 3.3 g/dL 3.2-5.0 [facility] Serum or plasma albumin/glob ulin mass ratioOrdered By: Dr. Hidalgo on 02-25-2022 Albumin/Globulin [Mass ratio] 0.8 {ratio} 0.9-2.4 [facility] Serum or plasma calcium nick urement (mass/volume)Ordered By: Dr. Hidalgo on 02-25-2022 Calcium [Mass/Vol] 8.8 mg/dL 8.5-10.1 [facility] Serum or plasma creatinine m easurement (mass/volume)Ordered By: Dr. Hidalgo on 02-25-2022 Creatinine [Mass/Vol] 1.07 mg/dL 0.55-1.02 [facility] Comment on above: The validity of the calculated GFR & GFRAA in patients over 70 years has not been determined. Clinical correlation is essential. Serum or plasma folate measu rement (mass/volume)Ordered By: Dr. Hidalgo on 02-25-2022 Folate [Mass/Vol] 13.50 ng/mL 3.1-55.4 [facility] Serum or plasma immunoglobul in kappa light chains measurement (mass/volume)Ordered By: Dr. Hidalgo on 02-25-2022 Immunoglobulin light chains.kappa [Mass/Vol] 69.8 mg/L 3.3-19.4 [facility] Serum or plasma urea nitroge n measurement (mass/volume)Ordered By: Dr. Hidalgo on 02-25-2022 Urea nitrogen [Mass/Vol] 17 mg/dL 7-18 [facility] Thin prep Papanicolaou smear with manual screeningOrdered By: Dr. Hidalgo on 02-25-2022 Thin prep Papanicolaou smear with manual screening 35 U/L 15-37 [facility] Thin prep Papanicolaou smear with manual screening 6 5-15 [facility] Basophil percentageOrdered B y: Dr. Arceo on 01-30-2022 Bilirubin [Mass/Vol] 0.50 mg/dL 0.20-1.00 [facility] Comment on above: For patients on eltr ombopag therapy, use of Dimension [place] TBIL is not recommended. Chloride [Moles/Vol] 110 mmol/L 98-107 [facility] Glucose [Mass/Vol] 125 mg/dL 74-106 [facility] Comment on above: Fasting Glucose resu lt from 100 to 125 mg/dL suggests IMPAIRED HOMEOSTASIS per A.D.A. criteria. Potassium [Moles/Vol] 4.4 mmol/L 3.5-5.1 [facility] Protein [Mass/Vol] 8.1 g/dL 6.4-8.2 [facility] Sodium [Moles/Vol] 141 mmol/L 136-145 [facility] Erythrocyte sedimentation ra teOrdered By: Dr. Arceo on 01-30-2022 ESR (Bld) [Velocity] 31 mm/h 0-30 [facility] Laboratory - Chemistry and C hemistry - challengeOrdered By: Dr. Arceo on 01-30-2022 ALP [Catalytic activity/Vol] 116 U/L 45-117 [facility] ALT [Catalytic activity/Vol] 43 U/L 13-56 [facility] CO2 [Moles/Vol] 25.0 mmol/L 21.0-32.0 [facility] Globulin (S) [Mass/Vol] 4.7 g/dL 2.2-4.2 [facility] Urea nitrogen/Creatinine [Mass ratio] 15.9 mg/mg 10-20 [facility] No Panel InformationOrdered By: Dr. Arceo on 01-30-2022 Estimated GFR (MDRD) Amer 64 mL/min >60 [facility] Comment on above: GFR Calc Estimated GFR (MDRD) Non-Af Amer 53 mL/min >60 [facility] Comment on above: Non- GFR Calc Serum or plasma C reactive p rotein measurement (mass/volume)Ordered By: Dr. Arceo on 01-30-2022 CRP [Mass/Vol] mg/L 0.0-3.0 [facility] Comment on above: C-Reactive Protein ( CRP) provides useful information for thediagnosis, therapy and monitoring of inflammatory processesand associated diseases. For the evaluation of Relative Riskfor Cardiovascular Disease, a High Sensitivity CRP (HSCRP)should be ordered. Serum or plasma albumin nick urement (mass/volume)Ordered By: Dr. Arceo on 01-30-2022 Albumin [Mass/Vol] 3.4 g/dL 3.2-5.0 [facility] Serum or plasma albumin/glob ulin mass ratioOrdered By: Dr. Arceo on 01-30-2022 Albumin/Globulin [Mass ratio] 0.7 {ratio} 0.9-2.4 [facility] Serum or plasma calcium nick urement (mass/volume)Ordered By: Dr. Arceo on 01-30-2022 Calcium [Mass/Vol] 9.0 mg/dL 8.5-10.1 [facility] Serum or plasma creatinine m easurement (mass/volume)Ordered By: Dr. Arceo on 01-30-2022 Creatinine [Mass/Vol] 1.07 mg/dL 0.55-1.02 [facility] Comment on above: The validity of the calculated GFR & GFRAA in patients over 70 years has not been determined. Clinical correlation is essential. Serum or plasma urea nitroge n measurement (mass/volume)Ordered By: Dr. Arceo on 01-30-2022 Urea nitrogen [Mass/Vol] 17 mg/dL 7-18 [facility] Serum or plasma uric acid me asurement (mass/volume)Ordered By: Dr. Arceo on 01-30-2022 Urate [Mass/Vol] 5.9 mg/dL 2.6-6.0 [facility] Comment on above: The drugs N-Acetylcy steine and Metamizole may falsely depress this assay. Thin prep Papanicolaou smear with manual screeningOrdered By: Dr. Arceo on 01-30-2022 Thin prep Papanicolaou smear with manual screening 41 U/L 15-37 [facility] Thin prep Papanicolaou smear with manual screening 6 5-15 [facility] Basophil percentageon 2021 Cholesterol [Mass/Vol] 157 mg/dL <200 [facility] Work Phone: Comment on above: <200 mg/dL Desirable 200-240 mg/dL Borderline >240 mg/dL High Risk Triglyceride [Mass/Vol] 135 mg/dL <199 [facility] Work Phone: Comment on above: The drugs N-Acetylcy steine and Metamizole may falsely depress this assay.Serum Triglycerides Reference Interval Normal <150 mg/dL Borderline high 150 - 199 mg/dL High 200 - 499 mg/dL Very High > or = 500 mg/dL Glucose Glucometer (BldC) [M ass/Vol]on 09-10-2021 Glucose [Mass/Vol] 292 mg/dL 74-106 [facility] Work Phone: Comment on above: MANAGEMENT OF PATIEN T CARE PER NURSING PROTOCOL Serum or plasma cholesterol in HDL measurement (mass/volume)on 09-10-2021 Cholesterol in HDL [Mass/Vol] 33 mg/dL >40 [facility] Work Phone: Comment on above: The drugs N-Acetylcy steine and Metamizole may falsely depress this assay. Reference Range HDL <40 mg/dL Low HDL Cholesterol HDL >or= 60 mg/dL High HDL Cholesterol Serum or plasma cholesterol in VLDL measurement (mass/volume)on 09-10-2021 Cholesterol in VLDL [Mass/Vol] 27 mg/dL 5-40 [facility] Work Phone: Serum or plasma low density lipoprotein (LDL) cholesterol measurement (mass/volume)on 09-10-2021 Cholesterol in LDL [Mass/Vol] 97 mg/dL 0-130 [facility] Work Phone: Absolute lymphocyte counton 09-09-2021 Lymphocytes Auto (Unsp spec) [#/Vol] 0.74 10*3/uL 0.83-4.51 [facility] Work Phone: Basophil percentageon 2021 Basophils/100 WBC (Bld) 1.0 % 0-1 [facility] Work Phone: Bilirubin [Mass/Vol] 0.90 mg/dL 0.20-1.00 [facility] Work Phone: Comment on above: For patients on eltr ombopag therapy, use of Dimension [place] TBIL is not recommended. Chloride [Moles/Vol] 106 mmol/L 98-107 [facility] Work Phone: Eosinophils/100 WBC (Bld) 1.5 % 0-5 [facility] Work Phone: Glucose [Mass/Vol] 254 mg/dL 74-106 [facility] Work Phone: Comment on above: Glucose result great er than or equal to 200 mg/dLsuggests DIABETES MELLITUS per A.D.A. criteria. Neutrophils (Bld) [#/Vol] 2.9 10*3/uL 2.0-7.7 [facility] Work Phone: Neutrophils/100 WBC (Bld) 71.7 % 47-70 [facility] Work Phone: Potassium [Moles/Vol] 3.9 mmol/L 3.5-5.1 [facility] Work Phone: Protein [Mass/Vol] 7.9 g/dL 6.4-8.2 [facility] Work Phone: Sodium [Moles/Vol] 139 mmol/L 136-145 [facility] Work Phone: WBC (Bld) [#/Vol] 4.0 10*3/uL 4.4-11.0 [facility] Work Phone: Blood erythrocytes count (nu mber/volume)on 09-09-2021 RBC (Bld) [#/Vol] 4.41 10*6/uL 4.2-5.4 [facility] Work Phone: Blood hemoglobin measurement (mass/volume)on 09-09-2021 Hemoglobin (Bld) [Mass/Vol] 14.2 g/dL 12.0-15.0 [facility] Work Phone: [phone] Blood lymphocytes/100 leukoc yteson 09-09-2021 Lymphocytes/100 WBC (Bld) 18.5 % 19-41 [facility] Work Phone: [phone] Blood monocytes/100 leukocyt eson 09-09-2021 Monocytes/100 WBC (Bld) 6.5 % 0-10 [facility] Work Phone: Blood platelet mean volumeon 09-09-2021 Platelet mean volume (Bld) [Entitic vol] 11.1 fL 6.2-12.0 [facility] Work Phone: Determination of erythrocyte mean corpuscular volume (MCV)on 09-09-2021 MCV (RBC) [Entitic vol] 93.0 fL 81-99 [facility] Work Phone: Hematocrit Auto (Bld) [Volum e fraction]on 09-09-2021 Hematocrit (Bld) [Volume fraction] 41.0 % 37-47 [facility] Work Phone: INR in Blood by Coagulation assayon 09-09-2021 INR Coag (Bld) [Relative time] 1.2 {INR} [facility] Work Phone: [phone] Laboratory - Chemistry and C hemistry - challengeon 09-09-2021 ALP [Catalytic activity/Vol] 100 U/L 45-117 [facility] Work Phone: ALT [Catalytic activity/Vol] 40 U/L 13-56 [facility] Work Phone: [phone] CO2 [Moles/Vol] 24.0 mmol/L 21.0-32.0 [facility] Work Phone: Globulin (S) [Mass/Vol] 4.6 g/dL 2.2-4.2 [facility] Work Phone: [phone] Urea nitrogen/Creatinine [Mass ratio] 14.6 mg/mg 10-20 [facility] Work Phone: [phone] Laboratory - Coagulationon 0 09-09-2021 PT Coag (PPP) [Time] 14.7 s 11.7-14.9 [facility] Work Phone: [phone] Laboratory - Hematology and Cell countson 09-09-2021 Erythrocyte distribution width (RBC) [Entitic vol] 44.1 fL 35.1-43.9 [facility] Work Phone: [phone] Erythrocyte distribution width (RBC) [Ratio] 13.0 % 11.6-14.6 [facility] Work Phone: [phone] Immature granulocytes/100 WBC (Bld) 0.800 % 0.0-0.9 [facility] Work Phone: [phone] Comment on above: IG% - Immature Granu locytes (promyelocytes, myelocytes and metamyelocytes) > 1% indicates that a LEFT SHIFT is Present. MCH (RBC) [Entitic mass] 32.2 pg 27.0-32.0 [facility] Work Phone: Nucleated RBC/100 WBC (Bld) [Ratio] 0 % 0-5 [facility] Work Phone: [phone] MCHC Auto (RBC) [Mass/Vol]on 09-09-2021 MCHC (RBC) [Mass/Vol] 34.6 g/dL 32-36 [facility] Work Phone: No Panel Informationon 09-09 Troponin I High Sensitivity 8 pg/mL 3.0-54.0 [facility] Work Phone: Comment on above: Please Note: New Kelsi t Units and Gender Specific Reference Ranges. For more information see Policy Stat Procedure [place] High Sensitivity Troponin (TNIH) and attachments. Estimated Creatinine Clearance Calc 36.44 ml/min [facility] Work Phone: Estimated GFR (MDRD) Amer 72 mL/min >60 [facility] Work Phone: Comment on above: GFR Calc Estimated GFR (MDRD) Non-Af Amer 60 mL/min >60 [facility] Work Phone: Comment on above: Non- GFR Calc Troponin I High Sensitivity 7 pg/mL 3.0-54.0 [facility] Work Phone: Comment on above: Please Note: New Kelsi t Units and Gender Specific Reference Ranges. For more information see Policy Stat Procedure [place] High Sensitivity Troponin (TNIH) and attachments. Platelets bldon 09-09-2021 Platelets (Bld) [#/Vol] 128 10*3/uL 150-450 [facility] Work Phone: Serum or plasma albumin nick urement (mass/volume)on 09-09-2021 Albumin [Mass/Vol] 3.3 g/dL 3.2-5.0 [facility] Work Phone: [phone] Serum or plasma albumin/glob ulin mass ratioon 09-09-2021 Albumin/Globulin [Mass ratio] 0.7 {ratio} 0.9-2.4 [facility] Work Phone: Serum or plasma calcium nick urement (mass/volume)on 09-09-2021 Calcium [Mass/Vol] 9.0 mg/dL 8.5-10.1 [facility] Work Phone: [phone] Serum or plasma creatinine m easurement (mass/volume)on 09-09-2021 Creatinine [Mass/Vol] 0.96 mg/dL 0.55-1.02 [facility] Work Phone: Comment on above: The validity of the calculated GFR & GFRAA in patients over 70 years has not been determined. Clinical correlation is essential. Serum or plasma urea nitroge n measurement (mass/volume)on 09-09-2021 Urea nitrogen [Mass/Vol] 14 mg/dL 7-18 [facility] Work Phone: Thin prep Papanicolaou smear with manual screeningon 09-09-2021 Thin prep Papanicolaou smear with manual screening 37 U/L 15-37 [facility] Work Phone: Thin prep Papanicolaou smear with manual screening 9 5-15 [facility] Work Phone: Whole blood hemoglobin A1c/t otal hemoglobin ratio (mass fraction)on 09-09-2021 HbA1c (Bld) [Mass fraction] 7.9 % 3.8-5.6 [facility] Work Phone: Comment on above: Normal < 5.7 % Predi abetic 5.7 - 6.4 % Diabetic >or= 6.5 % Please note range changes. Vital Signs Date Time Vital Sign Value Performing Clinician Faci lity 10-25-2024 14:12-0400 Body temperature 97.6 [degF] Dr. Desiree Tapia MD Work Phone: [facility] 10-25-2024 14:12-0400 Diastolic blood pressure 47 mm[Hg] Dr. Desiree Tapia MD Work Phone: [facility] 10-25-2024 14:12-0400 Heart rate 72 /min Dr. Desiree Tapia MD Work Phone: [facility] 10-25-2024 14:12-0400 Respiratory rate 16 /min Dr. Desiree Tapia MD Work Phone: [facility] 10-25-2024 14:12-0400 SaO2% (BldA) [Mass fraction] 94 % Dr. Desiree Tapia MD Work Phone: [facility] 10-25-2024 14:12-0400 Systolic blood pressure 136 mm[Hg] Dr. Desiree Tapia MD Work Phone: [facility] 10-25-2024 12:27-0400 Body height 154.[address] Desiree Tapia MD Work Phone: [facility] 10-25-2024 12:27-0400 Body mass index (BMI) [Ratio] 28.4 kg/m2 Dr. Desiree Tapia MD Work Phone: [facility] 10-25-2024 12:27-0400 Body weight 68.[address] Desiree Tapia MD Work Phone: [facility] 10-21-2024 08:51-0400 Diastolic blood pressure 76 mm[Hg] Dr. Desiree Tapia MD Work Phone: [phone] [place] [address] 10-21-2024 08:51-0400 Heart rate 82 /min Dr. Desiree Tapia MD Work Phone: [phone] [place] [address] 10-21-2024 08:51-0400 Systolic blood pressure 151 mm[Hg] Dr. Desiree Tapia MD Work Phone: [facility] 06-28-2024 17:29-0400 Diastolic blood pressure 60 mm[Hg] Dr. Desiree Tapia MD Work Phone: [facility] 06-28-2024 17:29-0400 Systolic blood pressure 154 mm[Hg] Dr. Desiree Tapia MD Work Phone: [facility] 06-28-2024 14:04-0400 Body height 154.[address] Desiree Tapia MD Work Phone: [facility] 06-28-2024 14:04-0400 Body mass index (BMI) [Ratio] 27.5 kg/m2 Dr. Desiree Tapia MD Work Phone: [facility] 06-28-2024 14:04-0400 Body temperature 97.9 [degF] Dr. Desiree Tapia MD Work Phone: [facility] 06-28-2024 14:04-0400 Body weight 65.[address] Desiree Tapia MD Work Phone: [facility] 06-28-2024 14:04-0400 Diastolic blood pressure 70 mm[Hg] Dr. Desiree Tapia MD Work Phone: [facility] 06-28-2024 14:04-0400 Heart rate 79 /min Dr. Desiree Tapia MD Work Phone: [facility] 06-28-2024 14:04-0400 Respiratory rate 16 /min Dr. Desiree Tapia MD Work Phone: [facility] 06-28-2024 14:04-0400 SaO2% (BldA) [Mass fraction] 96 % Dr. Desiree Tapia MD Work Phone: [facility] 06-28-2024 14:04-0400 Systolic blood pressure 172 mm[Hg] Dr. Desiree Tapia MD Work Phone: [facility] 06-28-2024 13:05-0400 Body height 154.[address] Desiree Tapia MD Work Phone: [facility] 06-28-2024 13:05-0400 Body mass index (BMI) [Ratio] 27.3 kg/m2 Dr. Desiree Tapia MD Work Phone: [facility] 06-28-2024 13:05-0400 Body temperature 98.6 [degF] Dr. Desiree Tapia MD Work Phone: [facility] 06-28-2024 13:05-0400 Body weight 65.[address] Desiree Tapia MD Work Phone: [facility] 06-28-2024 13:05-0400 Diastolic blood pressure 62 mm[Hg] Dr. Desiree Tapia MD Work Phone: [facility] 06-28-2024 13:05-0400 Heart rate 83 /min Dr. Desiree Tapia MD Work Phone: [facility] 06-28-2024 13:05-0400 Respiratory rate 16 /min Dr. Desiree Tapia MD Work Phone: [facility] 06-28-2024 13:05-0400 SaO2% (BldA) [Mass fraction] 96 % Dr. Desiree Tapia MD Work Phone: [facility] 06-28-2024 13:05-0400 Systolic blood pressure 175 mm[Hg] Dr. Desiree Tapia MD Work Phone: [facility] 04-19-2024 13:18-0400 Body temperature 98 [degF] Dr. Desiree Tapia MD Work Phone: [phone] [place] [address] 04-19-2024 13:18-0400 Body weight 66.[address] Desiree Tapia MD Work Phone: [facility] 04-19-2024 13:18-0400 Diastolic blood pressure 62 mm[Hg] Dr. Desiree Tapia MD Work Phone: [facility] 04-19-2024 13:18-0400 Heart rate 78 /min Dr. Desiree Tapia MD Work Phone: [facility] 04-19-2024 13:18-0400 Respiratory rate 16 /min Dr. Desiree Tapia MD Work Phone: [facility] 04-19-2024 13:18-0400 SaO2% (BldA) [Mass fraction] 97 % Dr. Desiree Tapia MD Work Phone: [facility] 04-19-2024 13:18-0400 Systolic blood pressure 153 mm[Hg] Dr. Desiree Tapia MD Work Phone: [facility] 03-22-2024 12:52-0500 Body height 154.[address] Desiree Tapia MD Work Phone: [facility] 03-22-2024 12:52-0500 Body mass index (BMI) [Ratio] 27 kg/m2 Dr. Desiree Tapia MD Work Phone: [facility] 03-22-2024 12:52-0500 Body temperature 98.4 [degF] Dr. Desiree Tapia MD Work Phone: [facility] 03-22-2024 12:52-0500 Body weight 64.[address] Desiree Tapia MD Work Phone: [facility] 03-22-2024 12:52-0500 Diastolic blood pressure 62 mm[Hg] Dr. Desiree Tapia MD Work Phone: [facility] 03-22-2024 12:52-0500 Heart rate 85 /min Dr. Desiree Tapia MD Work Phone: [facility] 03-22-2024 12:52-0500 Respiratory rate 16 /min Dr. Desiree Tapia MD Work Phone: [facility] 03-22-2024 12:52-0500 SaO2% (BldA) [Mass fraction] 96 % Dr. Desiree Tapia MD Work Phone: [facility] 03-22-2024 12:52-0500 Systolic blood pressure 148 mm[Hg] Dr. Desiree Tapia MD Work Phone: [facility] 01-04-2024 08:45-0500 Body temperature 97.1 [degF] Dr. Desiree Tapia MD Work Phone: [facility] 01-04-2024 08:45-0500 Diastolic blood pressure 78 mm[Hg] Dr. Desiree Tapia MD Work Phone: [facility] 01-04-2024 08:45-0500 Heart rate 70 /min Dr. Desiree Tapia MD Work Phone: [facility] 01-04-2024 08:45-0500 Respiratory rate 18 /min Dr. Desiree Tapia MD Work Phone: [facility] 01-04-2024 08:45-0500 SaO2% (BldA) [Mass fraction] 96 % Dr. Desiree Tapia MD Work Phone: [facility] 01-04-2024 08:45-0500 Systolic blood pressure 117 mm[Hg] Dr. Desiree Tapia MD Work Phone: [facility] 01-04-2024 07:29-0500 Body mass index (BMI) [Ratio] 28.8 kg/m2 Dr. Desiree Tapia MD Work Phone: [facility] 01-04-2024 07:29-0500 Body weight 69.[address] Desiree Tapia MD Work Phone: [facility] 10-30-2022 10:58-0400 Body height 154.[address] Desiree Tapia Work Phone: [facility] 10-30-2022 10:58-0400 Body mass index (BMI) [Ratio] 28.5 kg/m2 Dr. Desiree Tapia Work Phone: [facility] 10-30-2022 10:58-0400 Body temperature 98.6 [degF] Dr. Desiree Tapia Work Phone: [facility] 10-30-2022 10:58-0400 Body weight 68.[address] Desiree Tapia Work Phone: [facility] 10-30-2022 10:58-0400 Diastolic blood pressure 52 mm[Hg] Dr. Desiree Tapia Work Phone: [facility] 10-30-2022 10:58-0400 Heart rate 81 /min Dr. Desiree Tapia Work Phone: [facility] 10-30-2022 10:58-0400 Respiratory rate 17 /min Dr. Desiree Tapia Work Phone: [facility] 10-30-2022 10:58-0400 SaO2% (BldA) [Mass fraction] 94 % Dr. Desiree Tapia Work Phone: [facility] 10-30-2022 10:58-0400 Systolic blood pressure 126 mm[Hg] Dr. Desiree Tapia Work Phone: [facility] 2022 10:07-0400 Body weight 68.[address] Desiree Tapia Work Phone: [facility] 2022 10:07-0400 Diastolic blood pressure 56 mm[Hg] Dr. Desiree Tapia Work Phone: [facility] 2022 10:07-0400 Heart rate 88 /min Dr. Desiree Tapia Work Phone: [facility] 2022 10:07-0400 Respiratory rate 18 /min Dr. Desiree Tapia Work Phone: [facility] 2022 10:07-0400 SaO2% (BldA) [Mass fraction] 99 % Dr. Desiree Tapia Work Phone: [facility] 2022 10:07-0400 Systolic blood pressure 142 mm[Hg] Dr. Desiree Tapia Work Phone: [facility] 02-20-2022 08:55-0500 Body height 154.[address] Desiree Tapia Work Phone: [facility] 02-20-2022 08:55-0500 Body mass index (BMI) [Ratio] 28.8 kg/m2 Dr. Desiree Tapia Work Phone: [facility] 02-20-2022 08:55-0500 Body temperature 98.4 [degF] Dr. Desiree Tapia Work Phone: [facility] 02-20-2022 08:55-0500 Body weight 69.[address] Desiree Tapia Work Phone: [facility] 02-20-2022 08:55-0500 Diastolic blood pressure 60 mm[Hg] Dr. Desiree Tapia Work Phone: [facility] 02-20-2022 08:55-0500 Heart rate 91 /min Dr. Desiree Tapia Work Phone: [facility] 02-20-2022 08:55-0500 Respiratory rate 16 /min Dr. Desiree Tapia Work Phone: [facility] 02-20-2022 08:55-0500 SaO2% (BldA) [Mass fraction] 96 % Dr. Desiree Tapia Work Phone: [facility] 02-20-2022 08:55-0500 Systolic blood pressure 160 mm[Hg] Dr. Desiree Tapia Work Phone: [facility] 09-10-2021 12:35-0400 Body temperature 98.6 [degF] Dr. Desiree Tapia Work Phone: [facility] Work Phone: 09-10-2021 12:35-0400 Diastolic blood pressure 61 mm[Hg] Dr. Desiree Tapia Work Phone: [facility] Work Phone: 09-10-2021 12:35-0400 Heart rate 80 /min Dr. Desiree Tapia Work Phone: [facility] Work Phone: 09-10-2021 12:35-0400 Respiratory rate 18 /min Dr. Desiree Tapia Work Phone: [facility] Work Phone: 09-10-2021 12:35-0400 SaO2% (BldA) [Mass fraction] 98 % Dr. Desiree Tapia Work Phone: [facility] Work Phone: 09-10-2021 12:35-0400 Systolic blood pressure 151 mm[Hg] Dr. Desiree Tapia Work Phone: [facility] Work Phone: 09-09-2021 16:02-0400 Body mass index (BMI) [Ratio] 27.8 kg/m2 Dr. Desiree Tapia Work Phone: [facility] Work Phone: 09-09-2021 15:09-0400 Body height 154.[address] Desiree Tapia Work Phone: [facility] Work Phone: 09-09-2021 15:09-0400 Body weight 66.[address] Desiree Tapia Work Phone: [facility] Work Phone: 09-09-2021 13:43-0400 Body temperature 97.8 [degF] [facility] Work Phone: 09-09-2021 13:43-0400 Diastolic blood pressure 48 mm[Hg] [facility] Work Phone: 09-09-2021 13:43-0400 Heart rate 89 /min [facility] Work Phone: 09-09-2021 13:43-0400 Respiratory rate 20 /min [facility] Work Phone: 09-09-2021 13:43-0400 SaO2% (BldA) [Mass fraction] 96 % [facility] Work Phone: 09-09-2021 13:43-0400 Systolic blood pressure 156 mm[Hg] [facility] Work Phone: 09-09-2021 11:41-0400 Body height 157 cm [facility] Work Phone: 09-09-2021 11:41-0400 Body mass index (BMI) [Ratio] 27.2 kg/m2 [facility] Work Phone: 09-09-2021 11:41-0400 Body weight 67.13 kg [facility] Work Phone: Encounters Encounter Date Encounter Type Care Provider Facility Start: 10-25-2024 Non-patient / Non-visit Moy Ramos DO -[facility] Start: 10-25-2024 End: 10-25-2024 Admission to same day surgery center Moyisidro Ramos DO -Endoscopy Work Phone: Start: 10-25-2024 End: 10-25-2024 ambulatory Moygin Ramos Facility:[facility] Start: 10-21-2024 End: 10-21-2024 Patient encounter procedure Lesly BRADFORD -[facility] Work Phone: Start: 10-21-2024 End: 10-21-[address] Desiree Tapia MD Work Phone: -[facility] Start: 10-04-2024 End: 10-04-[address] Desiree Tapia MD Work Phone: -Laboratory Allyson Oneil [facility] Start: 10-04-2024 End: 10-04-[address] Desiree Tapia MD -Laboratory Allyson Oneil [facility] Start: 10-04-2024 End: 10-04-2024 ambulatory Desiree Tapia Facility:[facility] Start: 08-29-2024 End: 08-29-[address] Desiree Tapia MD Work Phone: -Radiology [facility] Start: 08-29-2024 End: 08-29-[address] Surendra Hidalgo MD -Radiology [facility] Work Phone: Start: 08-29-2024 End: 08-29-2024 ambulatory Desiree Tapia Facility:[facility] Start: 06-28-2024 End: 06-28-[address] Desiree Tapia MD Work Phone: [facility] Work Phone: Start: 06-28-2024 End: 06-28-2024 Patient encounter procedure Miguel BRADFORD -[facility] Work Phone: Start: 06-28-2024 End: 06-28-[address] Surendra Hidalgo MD -[facility] Work Phone: Start: 06-28-2024 End: 06-28-[address] Desiree Tapia MD Work Phone: [facility] Work Phone: Start: 04-19-2024 End: 04-19-2024 Patient encounter procedure Haley BRADFORD -[facility] Work Phone: Start: 04-19-2024 End: 04-19-2024 ambulatory Desiree Tapia Facility:[facility] Start: 04-19-2024 Non-patient / Non-visit Dr. Arya Argueta MD -[facility] Start: 04-19-2024 End: 04-19-[address] Desiree Tapia MD Work Phone: [facility] Work Phone: Start: 04-19-2024 End: 04-19-2024 Patient encounter procedure Haley BRADFORD -Cardiovascular Services Work Phone: Start: 04-19-2024 End: 04-19-2024 ambulatory Desiree Tapia Facility:[facility] Start: 04-01-2024 End: 04-01-[address] Desiree Tapia MD Work Phone: [facility] Work Phone: Start: 04-01-2024 End: 04-01-[address] Desiree Tapia MD -[facility] Start: 04-01-2024 End: 04-01-2024 ambulatory [facility] Facility:[facility] Start: 03-22-2024 End: 03-22-[address] Surendra Hidalgo MD -[facility] Work Phone: Start: 03-22-2024 End: 03-22-2024 ambulatory [facility] Facility:[facility] Start: 01-11-2024 End: 01-11-[address] Desiree Tapia MD -Laboratory, Specimen Work Phone: Start: 01-11-2024 End: 01-11-2024 ambulatory [facility] Facility:[facility] Start: 01-04-2024 Non-patient / Non-visit Moy Ramos DO [facility] Start: 01-04-2024 End: 01-04-2024 Admission to [facility] day [facility] Start: 01-04-2024 End: 01-04-2024 ambulatory [facility] Facility:[facility] Start: 11-26-2023 End: 11-26-2023 ambulatory [facility] Facility:[facility] Start: 11-18-2023 End: 11-18-2023 ambulatory [facility] Facility:[facility] Start: 11-03-2023 End: 11-03-2023 ambulatory [facility] Facility:[facility] Start: 10-26-2023 End: 10-26-2023 ambulatory [facility] Facility:[facility] Start: 02-23-2023 Non-patient / Non-visit Dr. Desiree Tapia Work Phone: [facility] Start: 02-23-2023 End: 02-23-[address] Desiree Tapia Work Phone: [facility] Work Phone: Start: 02-23-2023 End: 02-23-[address] [facility] Start: 11-25-2022 End: 11-25-[address] Desiree Tapia Work Phone: [facility] Work Phone: Start: 11-25-2022 End: 11-25-[address] Desiree Tapia Work Phone: [facility]-Sleep Lab Work Phone: Start: 10-30-2022 End: 10-30-[address] Desiree Tapia Work Phone: [facility] Neurology Work Phone: Start: 06-11-2022 End: 06-11-[address] Desiree Tapia Work Phone: [facility] Work Phone: Start: 06-11-2022 End: 06-11-[address] Desiree Tapia Work Phone: [facility] Start: 05-20-2022 End: 05-20-[address] Desiree Tapia Work Phone: [facility]-Laboratory Start: 2022 End: [address] Desiree Tapia Work Phone: [facility] Vascular Surgery Start: 04-30-2022 Non-patient / Non-visit Dr. Desiree aTpia Work Phone: [facility] Start: 04-30-2022 End: 04-30-[address] Desiree Tapia Work Phone: [facility] Work Phone: Start: 04-30-2022 End: 04-30-[address] Desiree Tapia Work Phone: [facility]-Pulmonary Services/Neurology Start: 04-08-2022 End: 04-08-[address] [facility] Start: 02-25-2022 End: 02-25-[address] Desiree Tapia Work Phone: [facility] Work Phone: Start: 02-25-2022 End: 02-25-[address] [facility] Start: 02-25-2022 Non-patient / Non-visit Dr. Desiree Tapia Work Phone: [facility] Start: 02-20-2022 End: 02-20-[address] Desiree Tapia Work Phone: [facility] Neurology Start: 01-30-2022 End: 01-30-2022 ambulatory [facility] Work Phone: Start: 01-30-2022 End: 01-30-2022 [facility] Start: 09-16-2021 End: 12-10-2021 ambulatory DESIREE TAPIA Facility:[facility] Start: 09-10-2021 Non-patient / Non-visit Dr. Desiree Tapia Work Phone: [facility] Start: 09-09-2021 Non-patient / Non-visit Dr. Desiree Tapia Work Phone: [facility] Start: 09-09-2021 End: 09-10-2021 Evaluation and management of inpatient [facility]-Progressive Care Unit Start: 10-14-2017 End: 10-14-2017 Patient encounter DESIREE De Oliveira [facility] Procedures Date Procedure Procedure Detail Performing Clinician Start: 10-25-[address] Desiree owusu MD Work Phone: Start: 10-04-2024 Total iron binding capacity measurement Dr. Desiree Tapia MD Work Phone: Start: 10-04-2024 Urine microalbumin/creatinine ratio measurement Dr. Desiree Tapia MD Work Phone: Start: 08-29-[address] Desiree Tapia MD Work Phone: Start: 04-01-2024 Measurement of renal function Dr. Desiree Tapia MD Work Phone: Comment on above: GFR Calc Start: 04-01-2024 Total iron binding capacity measurement Dr. Desiree Tapia MD Work Phone: Start: 01-11-[address] Desiree Tapia MD Work Phone: Start: 06-11-2022 MRI of cervical spine Dr. Desiree Tapia Work Phone: Start: 04-08-2022 Radionuclide imaging of liver and/or biliary tract using radioactive isotope Dr. Desiree Tapia Work Phone: Start: 04-08-[address] Desiree owusu Work Phone: Start: 02-25-2022 End: 02-25-2022 X-ray of both feet Dr. Desiree Tapia Work Phone: Start: 02-25-2022 End: 02-25-[address] Desiree Tapia Work Phone: Start: 09-09-2021 Magnetic resonance angiography of head without contrast Dr. Desiree Tapia Work Phone: Start: 09-09-2021 Magnetic resonance angiography of neck without contrast Dr. Desiree Tapia Work Phone: Start: 09-09-2021 CT of head without contrast Start: 09-09-2021 Plain chest X-ray Start: 09-09-2021 MRI of brain without contrast Dr. Desiree Tapia Work Phone: Plan of Treatment Date Care Activity Detail Author Start: 10-25-2024 Patient discharge [facility] Start: 01-04-2024 Egd transoral biopsy single/multiple EGD BIOPSY SINGLE/MULTIPLE [facility] Start: 01-04-2024 Egd transoral contro l bleeding any method EGD CONTROL BLEEDING ANY [facility] Start: 01-04-2024 Patient discharge [facility] Start: 03-20-2022 Patient referral [facility] Work Phone: Start: 09-10-2021 Patient discharge [facility] Work Phone: Start: 09-10-2021 Cardiac event recording [facility] Work Phone: Start: 09-09-2021 Following clinical p athway protocol [facility] Work Phone: Start: 09-09-2021 Assessment of risk o f venous thromboembolism [facility] Work Phone: Start: 09-09-2021 Cardiac monitoring [facility] Work Phone: Start: 09-09-2021 Care regimes management [facility] Work Phone: Start: 09-09-2021 Catheterization of vein [facility] Work Phone: Start: 09-09-2021 Continuous pulse oximetry [facility] Work Phone: Start: 09-09-2021 Elevation of head of bed [facility] Work Phone: Start: 09-09-2021 Exercises [facility] Work Phone: Start: 09-09-[address] anned interventions [facility] Work Phone: Start: 09-09-2021 Insertion of cathete r into peripheral vein [facility] Work Phone: Start: 09-09-2021 Measuring intake and output [facility] Work Phone: Start: 09-09-2021 Notification of physician [facility] Work Phone: Start: 09-09-2021 Oxygen therapy [facility] Work Phone: Start: 09-09-2021 Patient referral to dietitian [facility] Work Phone: Start: 09-09-2021 Providing care accor ding to standard [facility] Work Phone: Start: 09-09-2021 Provision of activit y privileges [facility] Work Phone: Start: 09-09-2021 Referral to occupati onal therapist [facility] Work Phone: Start: 09-09-2021 Referral to service [facility] Work Phone: Start: 09-09-2021 Speech therapy assessment [facility] Work Phone: Start: 09-09-2021 [facility] Work Phone: Start: 09-09-2021 Admission procedure [facility] Work Phone: Start: 09-09-2021 [facility] Work Phone: Antibody to lupus La protein measurement [facility] Work Phone: Antibody to SS-A measurement [facility] Work Phone: CBC W Auto Different ial panel - Blood [facility] Centromere protein B Ab [Units/volume] in Serum [facility] Work Phone: Chromatin Ab [Units/ volume] in Serum or Plasma [facility] Work Phone: Comprehensive metabo lic 2000 panel - Serum or Plasma [facility] DNA double strand Ab [Units/volume] in Serum [facility] Work Phone: Sraah-1 extractable nuc lear Ab [Units/volume] in Serum [facility] Work Phone: Nuclear Ab [Presence ] in Serum [facility] Work Phone: Patient referral [facility] Work Phone: SCL-[id number] extractable n uclear Ab [Units/volume] in Serum by Immunoassay [facility] Work Phone: Howell extractable nu clear Ab [Presence] in Serum [facility] Work Phone: US Carotid arteries [facility] US Carotid arteries [facility] Immunizations Immunization Date Immunization Notes Care Provider Fa angélicaty 05-24-2021 Covid (Pfizer) Dr. Desiree owusu Work Phone: [facility] 12-25-2020 Covid (Pfizer) Dr. Desiree owusu Work Phone: [facility] 05-10-2020 Covid (Pfizer) [facility] 04-19-2020 Covid (Pfizer) [facility] Payers Date Payer Category Payer Self-pay [id number] 2021 Private Health Insurance 101 [id number] 1945 Unknown [id number] 2.16.8 [id number] Medicare [id number] Medicare [id number] Unknown [id number] 2.16.8 [id number] Unknown [id number] 2.16.8 [id number] Unknown [id number] 2.16.8 [id number] Unknown [id number] 2.16.8 [id number] Unknown [id number] 2.16.8 [id number] Unknown [id number] 2.16.8 [id number] Unknown [id number] 2.16.8 [id number] Unknown [id number] 2.16.8 [id number] Unknown [id number] 2.16.8 [id number] Unknown [id number] 2.16.8 [id number] Unknown [id number] 2.16.8 [id number] Unknown [id number] 2.16.8 [id number] Unknown [id number] 2.16.8 [id number] Unknown [id number] 2.16.8 [id number] Unknown [id number] 2.16.8 [id number] Unknown [id number] 2.16.8 [id number] Unknown [id number] 2.16.8 [id number] Unknown [id number] 2.16.8 [id number] Unknown [id number] 2.16.8 [id number] Unknown [id number] 2.16.8 [id number] Social History Date Type Detail Facility Start: 09-09-2021 End: 10-30-2022 Tobacco smoking status KSIS Unknown if ever smoked [facility] Start: 1945 Sex Assigned At Female [facility] Start: 09-10-2021 Non-smoker [facility] Start: 12-31-2023 End: 10-21-2024 Tobacco smoking status NHIS Never smoked tobacco (finding) [facility] Start: 04-14-2024 End: 04-28-2024 Sex Female (finding) [facility] Not [facility] Goals Date Patient Goal Desired Activity /State Functional Status Date Assessment Result Facility 09-10-2021 Functional status Ambulates [facility] Work Phone: Mental Status Date Assessment Result Facility 10-25-2024 Cognitive function Voice/Name [facility] Work Phone: 01-04-2024 Cognitive function Voice/Name;Touch/Shaki ng [facility] Work Phone: 09-10-2021 Cognitive function Voice/Name [facility] Work Phone: 09-09-2021 Cognitive function Voice/Name [facility] Work Phone: Clinical Notes 04-30-2022 to 10-25-2024 Note Date & Type Note Facility 10-25-2024 History and physical note Note Date/Time October 25, 2024 12:49pm [facility] Medical Records Department [address] [place] [id number] History & Physical Exam 10/25/24 1247 MR#: [id number] Acct: [id number] Name: SANDIE WAGGONER DAWSON Rep #:[id number] : 1945 79 From: [facility] Friend PCP: Dr. Desiree Tapia MD Status:[facility] Location: [place] [address] HPI - General General Date of Admission: 10/25/24 Date of Service: 11/16/24 Chief Complaint: Anemia HPI Narrative SANDIE WAGGONER, is a 79 F who presents with the Chief Complaint: Anemia [facility]GI established 11/26/2023 referred from hematology due to occasional problems with swallowing and chronic iron deficiency anemia. Patient with dysphagia episodes up to 3 times per week dysphagia is to solids and liquids last colonoscopy 15 years ago no history of EGD EGD 01/04/2024 No endoscopic esophageal abnormality to explain patient's dysphagia. - Small hiatal hernia. - Chronic gastritis. Biopsied. - Erosive gastropathy with stigmata of recent bleeding. Treated with a heater probe. - Chronic duodenitis. Biopsied. OV 10/21/24 patient seen by primary care provider who ordered blood work which showed a hemoglobin is 8.3 which prompted patient to make follow-up appointment. Patient having extreme fatigue and shortness of breath with exertion. Sometimes she is too tired to chew her food. Patient continues with omeprazole. She was started on iron 2 weeks ago. She denies black/tarry stool. [facility] Medical History Thyroid disease Post-menopausal Insulin dependent diabetes mellitus Ambulates with cane Low iron Anemia Skin tear Migraine headache DDD (degenerative disc disease), cervical Lightheadedness Dietary restriction Difficulty swallowing History of hiatal hernia History of GI bleed Non-smoker Shortness of breath on exertion Leg cramps History of pain when walking History of edema Cardiology follow-up encounter Heart murmur History of Holter monitoring Wears glasses Thyroid disease History of echocardiogram Walker as ambulation aid Pancytopenia Thalamic infarct, acute Diabetic retinopathy Stroke Shingles Neuropathy High cholesterol Arthritis GERD (gastroesophageal reflux disease) Rosacea Post-polio syndrome History of poliomyelitis HTN (hypertension) Home Medications ?Medication ?Instructions ?Recorded ?Last Taken ?Type atorvastatin 40 mg tablet 40 mg PO QHS #30 tabs Unknown Rx losartan 100 mg tablet 100 mg PO DAILY 05/07/22 07:30 History miscellaneous medical supply #2 ea 07/17/22 Unknown Rx glipizide 5 mg tablet 5 mg PO DAILY diabetes 08/04 Unknown History ketoconazole 2 % shampoo 1 applic topical 3XW PRN PER 08/05/23 Unknown History metformin 500 mg tablet 500 mg PO BID diabetes 08/04 Unknown History amlodipine 10 mg tablet 10 mg PO DAILY 12/31/2310/10 07:30 History omeprazole 40 mg capsule,delayed 40 mg PO BID #60 caps 01/04/24 10/25/24 07:30 Rx release insulin glargine 100 unit/mL (3 18 unit subcut BID dm 04/19/24 Unknown History mL) subcutaneous pen (Lantus Solostar U-100 Insulin) aspirin 81 mg tablet,delayed 81 mg PO .QOD 10/21/24 Un known History release (Adult Low Dose Aspirin) ferrous fumarate 324 mg (106 mg 324 mg PO DAILY Unknown History iron) tablet gabapentin 100 mg capsule 100 mg PO QODAY 10/21/24 Unk nown History Allergy/AdvReac Type Severity Reaction Status Date / Time Sulfa (Sulfonamide Allergy Unknown Hives Verified 10/25/24 12:26 Antibiotics) adhesive tape AdvReac Intermediate Rash Verified 10/25/24 12:26 latex AdvReac skin Verified 10/25/24 12:26 reaction Family History Father Diabetes Hypertension High cholesterol Angina at rest Heart disease Kidney disease Mother Bowel disease Grandmother CVA (cerebral vascular accident) Aunt CVA (cerebral vascular accident) Surgical History History of esophagogastroduodenoscopy (EGD) Hx of colonoscopy Hx of right cataract extraction Hx of left cataract extraction Hx of lithotripsy Social History household members: spouse current occupational status: retired Smoking Status: Never smoker second hand exposure: No alcohol intake: never substance use type: does not use caffeine: Yes Type: coffee Number of servings: 1 what type of physical activity do you participate in: other frequency: 1-2 times per week elijah/druze: Quaker seatbelt use: always ROS Constitutional Constitutional: Denies fatigue, fever(s), poor appetite, weight gain or weight loss Gastrointestinal Gastrointestinal: Denies belching, bloating, change in bowel habits, change in stool character, chewing difficulty, coffee ground emesis, constipation, cramping, diarrhea, dyspepsia, dysphagia, early satiety, excessive flatus, fecalincontinence, heartburn, hematemesis, hematochezia, hemorrhoids, loose stools, melena, nausea, odynophagia, rectal bleeding, tenesmus, vomiting or weight changes Vital Signs Vital Signs Vital Signs: 10/25/24 12:27 10/25/24 12:27 10/25/24 12:44 Temperature 99.5 F H 99.5 F H Temperature Source Temporal Pulse Rate 80 80 Respiratory Rate 18 18 Respiratory Pattern Normal Blood Pressure 157/51 H 157/51 H Blood Pressure Mean 86 Blood Pressure Source Monitor Blood Pressure Position Sitting Blood Pressure Location Right Arm Pulse Ox 100 100 Oxygen Delivery Method Room Air Room Air Weight Weight: 150 lb 5.684 oz Body Mass Index (BMI) 28.4 Physical Exam Const alert, oriented x3, no apparent distress and healthy appearing General Appearance: cooperative GI normal to inspection, nondistended, normoactive bowel sounds, soft to palpation,non-tender and non-distended Percussion: normal to percussion Rectal Exam: deferred Assessment & Plan Assessment/Plan (1) Anemia: (2) Dysphagia: PLAN: Assessment and Plan Assessment and Plan (1) Iron deficiency anemia: Status: Chronic Qualifiers: Iron deficiency anemia type: chronic blood loss Qualified Code(s): D50.0 - Iron deficiency anemia secondary to blood loss (chronic) Plan: Sandie is an 79-year-old female patient here today for evaluation of low hemoglobin. Patient last EGD in 2023 which showed erosive gastropathy that was bleeding and cauterized. Patient saw her primary care provider at the end of September 2024 and hemoglobin was ordered which was 8.3. Per chart, this is the lowest her hemoglobin has been since 2013. Patient endorsing extreme fatigue, lightheadedness and shortness of breath on exertion. Denying black or tarry stool. I have ordered repeat CBC and CM pending result may have to refer her [facility] ED. She was scheduled for EGD next week. She will continue PPI and iron inthe meantime. - EGD - CBC - Continue PPI - Follow-up after procedure Orders: Orders CBC W/Diff, Automated Today D64.9 - Anemia, unspecified Comprehensive Metabolic Profil Today D50.0 - Iron deficiency anemia secondary to blood loss (chronic) 10/25/24 1249 <Electronically signed by Moy Ramos DO> Cosigner Signature (if applicable): CC: Dr. Desiree Tapia MD; Moy Ramos DO~ Signed [facility] Work Phone: [phone]) 587-125609-16-2025 Consult note Author Margarita Gonzalez [facility] Note Date/Time October 25, 2024 12:44pm [facility] Medical Records Department [address] [place] [address] Pre-Anesthesia Evaluation 10/25/24 1237 MR#: [id number] Acct: [id number] Name: SANDIE WAGGONER Rep #:[id number] : 1945 79 From: Margarita mckeon CRNA PCP: Dr. Desiree Tapia MD Status:REG SDC Y Race: C Location: [place] [address] ASA Classification* ASA Classification ASA Classification: 3 Assessment & Plan Anesthesia* Anesthesia Assessment Anesthesia Assessment: Discussed sedation and/or anesthesia options, risks, benefits, and alternatives with patient/parents/legal guardian/POA. Questions invited. The patient/parents/legal guardian/POA seems to understand and agrees to proceedwith anesthesia plan. Reviewed the physical assessment, medical history, allergy history and patient home medications list prior to surgery/procedure/anesthetic and documented any changes. Performed airway and anesthesia risk assessments. Anesthesia Type Anesthesia Type: MAC History Source History Obtained from:: Patient and Chart Anesthesia Focused Assessment* Temperature: 99.5 F Pulse Rate: 80 Blood Pressure: 157/51 Respiratory Rate: 18 Pulse Ox: 100 Oxygen Delivery Method: Room Air Airway Assessment Mouth opens: >3 cm Mallampati Score: I Teeth Condition: Intact Neck Range of motion (ROM): Full ROM Labs Anesthesia Preop lab: CBC WBC 4.2 K/mm3 (4.4-11.0) L 10/21/24 09:05 10/21/24 RBC 3.19 M/mm3 (4.2-5.4) L 10/21/24 09:05 10/21/24 Hgb 8.1 g/dL (12.0-15.0) L 10/21/24 09:05 10/21/24 Hct 26.7 % (37-47) L 10/21/24 09:05 10/21/24 Plt Count 164 K/mm3 (150-450) 10/21/24 09:05 10/21/24 CHEMISTRY Potassium 3.9 mmol/L (3.3-5.1) 10/21/24 09:05 10/21/24 Sodium 141 mmol/L (133-145) 10/21/24 09:05 10/21/24 BUN 21 mg/dL (4-19) H 10/21/24 09:05 10/21/24 Creatinine 1.35 mg/dL (0.70-1.20) H 10/21/24 09:05 Glucose 170 mg/dL (70-99) H 10/21/24 09:05 10/21/24 POC Glucose 99 mg/dL (74-106) 01/04/24 07:18 01/04/24 TSH 4.760 uIU/mL (0.300-4.200) H 10/04/24 13:47 COAG PT 14.7 SECONDS (11.7-14.9) 09/09/21 12:00 Pre-Assessment Diagnosis/Proposed Procedure Planned Operative Procedure(s): EGD Anesthesia History Anesthesia History - environmental conservation officer: Anesthesia History - environmental conservation officer Hx Hospitalization No 10/21/24 11:31 Any Problems With Anesthesia No 10/21/24 11:31 Cholinesterase deficiency No 10/21/24 11:31 You/Your Family Experience No 10/21/24 11:31 fever (hyperthermia) with Relationship Recent Exposure to Contagious No 10/25/24 12:27 Disease Does patient have nerve No 10/21/24 11:31 stimulator Patient instructed to have device shut off --Does patient have Pacemaker No 10/25/24 12:27 or ICD? When Was Last Pacemaker Check QUESTION #4 FULL TEXT: You/Your Family Experience fever (hyperthermia) with Anesthesia Last Oral Intake Last Oral intake: Last Oral Intake NPO since 07:30 10/25/24 12:27 Meds taken in AM with sips of Yes 10/25/24 12:27 water? Meds patient instructed to amlodipine, losartan, 10/25/24 12:27 take am of surgery omeprazole PONV PONV - environmental conservation officer: PONV - environmental conservation officer Female Yes 10/21/24 11:31 HX of Motion Sickness No 10/21/24 11:31 HX of N/V After Surgery No 10/21/24 11:31 Non-Smoker Yes 10/21/24 11:31 Duration of Surgery greater No 10/21/24 11:31 than 60 minutes Number of Risk Factors 2 10/21/24 11:31 PONV Score Moderate Risk 10/21/24 11:31 Height & Weight Height & Weight: Anesthesia: Height & Weight Height 5 ft 1 in 10/25/24 12:27 Weight: 68.2 kg 10/25/24 12:27 Body Mass Index (BMI) 28.4 10/25/24 12:27 Respiratory Assessment Respiratory Assessment - environmental conservation officer: Respiratory Tract Infection Hx - environmental conservation officer Hx Respiratory Tract Infection No 10/21/24 11:31 STOP Sleep Apnea STOP Sleep Apnea - environmental conservation officer: STOP Sleep Apnea - environmental conservation officer Hx Hypertension Yes: CONTROLLED WITH MED 10/21/24 11:31 Hx Sleep Apnea No 10/21/24 11:31 CPAP BIPAP Do you snore loudly (louder Yes 10/21/24 11:31 than talking or can be heard Do you often feel tired/ Yes 10/21/24 11:31 fatigued/ sleepy during daytime? Has anyone observed you stop No 10/21/24 11:31 breathing during sleep? STOP Results Positive 10/21/24 11:31 QUESTION #5 FULL TEXT : Do you snore loudly (louder than talking or can be heard through closed doors)? Tobacco Use History Tobacco Use History - environmental conservation officer: Tobacco Use History - environmental conservation officer Tobacco Use Non-smoker 09/10/21 10:00 Smoking Status Never smoker 10/21/24 11:31 Hx Tobacco Use No 10/21/24 11:31 Years Smoking Packs Smoked per Day Smoking Cessation Date was within the last 15 years Hx Smoking Cessation Date Hx Smoking Cessation No: patient doesn't smoke 10/21/24 11:31 Counseling Hematologic Medial History Hematologic Hx - environmental conservation officer: Hematologic Medical Hx - crocheter Hx of Blood Transfusion No 10/21/24 11:31 Hx of Transfusion in last 3 No 10/21/24 11:31 Months Date of Last Transfusion (if within last 3 months) Ever experience any problems No 10/21/24 11:31 with transfusion(s)? Specify any problems Hx of Preganancy in last 3 No 10/21/24 11:31 Months Nurse Filling Out Transfusion DSCHRIBER 10/21/24 11:31 & Questions: Date: 10/21/24 10/21/24 11:31 Time: 11:34 10/21/24 11:31 Patient unable to answer at this time (ie. confused, unrespo /Reproduction History /Reproductive History - environmental conservation officer: /Reproductive Hx- environmental conservation officer Hx Now No 10/21/24 11:31 Gestational Age (in weeks): EDC: Hx Hx Para Hx Section SAB No 10/21/24 11:31 Active Medications Active Medications: Current Medications Generic Name Dose Route Start Last Admin Trade Name Freq PRN Reason Stop Dose Admin Lactated Ringer's 1,000 mls @ 15 mls/hr 10/25/24 12:15 10/25/24 12:30 IV 15 mls/hr .Q48H MARLENE Administration PFSH Medical History (Updated 10/21/24 @ 11:55 by Cristina Martinez) Thyroid disease Post-menopausal Insulin dependent diabetes mellitus Ambulates with cane Low iron Anemia Skin tear Migraine headache DDD (degenerative disc disease), cervical Lightheadedness Dietary restriction Difficulty swallowing History of hiatal hernia History of GI bleed Non-smoker Shortness of breath on exertion Leg cramps History of pain when walking History of edema Cardiology follow-up encounter Heart murmur History of Holter monitoring Wears glasses Thyroid disease History of echocardiogram Walker as ambulation aid Pancytopenia Thalamic infarct, acute Diabetic retinopathy Stroke Shingles Neuropathy High cholesterol Arthritis GERD (gastroesophageal reflux disease) Rosacea Post-polio syndrome History of poliomyelitis HTN (hypertension) Home Medications ?Medication ?Instructions ?Recorded ?Last Taken ?Type atorvastatin 40 mg tablet 40 mg PO QHS #30 tabs Unknown Rx losartan 100 mg tablet 100 mg PO DAILY 05/07/22 07:30 History miscellaneous medical supply #2 ea 07/17/22 Unknown Rx glipizide 5 mg tablet 5 mg PO DAILY diabetes 08/04 Unknown History ketoconazole 2 % shampoo 1 applic topical 3XW PRN PER 08/05/23 Unknown History metformin 500 mg tablet 500 mg PO BID diabetes 08/04 Unknown History amlodipine 10 mg tablet 10 mg PO DAILY 12/31/2310/10 07:30 History omeprazole 40 mg capsule,delayed 40 mg PO BID #60 caps 01/04/24 10/25/24 07:30 Rx release insulin glargine 100 unit/mL (3 18 unit subcut BID dm 04/19/24 Unknown History mL) subcutaneous pen (Lantus Solostar U-100 Insulin) aspirin 81 mg tablet,delayed 81 mg PO .QOD 10/21/24 Un known History release (Adult Low Dose Aspirin) ferrous fumarate 324 mg (106 mg 324 mg PO DAILY Unknown History iron) tablet gabapentin 100 mg capsule 100 mg PO QODAY 10/21/24 Unk nown History Allergy/AdvReac Type Severity Reaction Status Date / Time Sulfa (Sulfonamide Allergy Unknown Hives Verified 10/25/24 12:26 Antibiotics) adhesive tape AdvReac Intermediate Rash Verified 10/25/24 12:26 latex AdvReac skin Verified 10/25/24 12:26 reaction Family History Father Diabetes Hypertension High cholesterol Angina at rest Heart disease Kidney disease Mother Bowel disease Grandmother CVA (cerebral vascular accident) Aunt CVA (cerebral vascular accident) Surgical History (Updated 10/21/24 @ 11:49 by Cristina Martinez) History of esophagogastroduodenoscopy (EGD) Hx of colonoscopy Hx of right cataract extraction Hx of left cataract extraction Hx of lithotripsy Social History household members: spouse current occupational status: retired Smoking Status: Never smoker second hand exposure: No alcohol intake: never substance use type: does not use caffeine: Yes Type: coffee Number of servings: 1 what type of physical activity do you participate in: other frequency: 1-2 times per week elijah/druze: Quaker seatbelt use: always Review of Systems (Anesthesia) ROS Narrative System reviewed and no additional complaints, except as documented. 10/25/24 1244 <Electronically signed by Margarita davis REGULATORY SPECIALIST> Date _ Margarita Gonzalez CRNA Cosigner Signature: Date CC: ~ Signed [facility] Work Phone: 1(764) 848-981809-16-2025 Consult note [facility] Medical Records Department [address] [place] [address] Anesthesia Postop Eval I 10/25/24 1352 MR#: [id number] Acct: [id number] Name: SANDIE WAGGONER DAWSON Rep #:[id number] : 1945 79 From: Stanislav Altamirano PCP: Dr. Desiree Tapia MD Status:REG SDC Y Race: C Location: [place] [address] Anesthesia: Postop Eval I Current Vital Signs Temperature: 98.3 F Pulse Rate: 71 Blood Pressure: 127/41 Respiratory Rate: 16 Pulse Ox: 96 Oxygen Delivery Method: Room Air Assessment Airway patent: Yes Spontaneous unlabored respirations: Yes Mental status: Awake and Calm nausea: No Vomiting: No Anesthesia Complication: No Fluid Hydration Crystalloid volume administer (ml): 300 Total IV fluid infused: 300 Progress Note Anesthesia document: Postop Eval 1 completed: Yes 10/25/24 1353 > Date _ Stanislav Chauhan Signature: Date CC: ~ Signed [facility]09-16-2025 Procedure note [facility] Medical Records Department [address] [place] [address] EGD Report MR#: [id number] Acct: [id number] Name: SANDIE WAGGONER DAWSON Rep #:[id number] : 1945 79 From: Moy Ramos DO PCP: Dr. Desiree Tapia MD Status:REG [facility] Patient Name: Sandie Waggoner Procedure Date: 10/25/2024 1:23 PM Date of : 1945 Age: 79 Procedure: Upper GI endoscopy Indications: Iron deficiency anemia Providers: Moy Ramos DO Medicines: Monitored Anesthesia Care Patient Profile: This is an 79 year old female. Refer to note in patient chart for documentation of history and physical. Patient has symptoms. Complications: No immediate complications. Procedure: Pre-Anesthesia Assessment: - Prior to the procedure, a History and Physical was performed, and patient medications and allergies were reviewed. The patient is competent. The risks and benefits of the procedure and the sedation options and risks were discussed with the patient. All questions were answered and informed consent was obtained. Patient identification and proposed procedure were verified by the physician in the pre-procedure area. Mental Status Examination: alert and oriented. Airway Examination: normal oropharyngeal airway and neck mobility. Respiratory Examination: clear to auscultation. CV Examination: normal. Prophylactic Antibiotics: The patient does not require prophylactic antibiotics. Prior Anticoagulants: The patient has taken no anticoagulant or antiplatelet agents. ASA Grade Assessment: II - A patient with mild systemic disease. After reviewing the risks and benefits, the patient was deemed in satisfactory condition to undergo the procedure. The anesthesia plan was to use monitored anesthesia care (MAC). Immediately prior to administration of medications, the patient was re-assessed for adequacy to receive sedatives. The heart rate, respiratory rate, oxygen saturations, blood pressure, adequacy of pulmonary ventilation, and response to care were monitored throughout the procedure. The physical status of the patient was re-assessed after the procedure. After obtaining informed consent, the endoscope was passed under direct vision. Throughout the procedure, the patient's blood pressure, pulse, and oxygen saturations were monitored continuously. The Endoscope was introduced through the mouth, and advanced to the fourth part of the duodenum. Small bowel enteroscopy was deemed necessary. The upper GI endoscopy was accomplished without difficulty. The patient tolerated the procedure well. Scope In: 1:35:52 PM Scope Out: 1:40:20 PM Total Procedure Duration Time 0 hours 4 minutes 28 seconds Findings: The examined esophagus was normal. A single 5 mm angiodysplastic lesion with no bleeding was found in the gastric body. Coagulation for hemostasis using heater probe was successful. Three 5 mm angiodysplastic lesions with bleeding were found in the third portion of the duodenum. Coagulation for hemostasis using heater probe was successful. Estimated blood loss was minimal. Impression: - Normal esophagus. - A single non-bleeding angiodysplastic lesion in the stomach. Treated with a heater probe. - Three bleeding angiodysplastic lesions in the duodenum. Treated with a heater probe. - No specimens collected. Recommendation: - Discharge patient to home (ambulatory). - Capsule endoscopy - Abdominal u/s with elastography regarding liver disease - Continue present medications. Procedure Code(s): --- Professional --- 23646, Small intestinal endoscopy, enteroscopy beyond second portion of duodenum, not including ileum; with control of bleeding (eg, injection, bipolar cautery, unipolar cautery, laser, heater probe, stapler, plasma workers' compensation claims supervisor) CPT copyright 2021 [employer]. All rights reserved. The codes documented in this report are preliminary and upon sql server architect review may be revised to meet current compliance requirements. Moy Ramos DO 10/25/2024 1:53:07 PM This report has been signed electronically. Number of Addenda: 0 Note Initiated On: 10/25/2024 1:23 PM 10/25/24 1353 Date _ Moy Ramos DO Cosigner Signature: Date (if indicated) CC: Dr. Desiree Tapia MD; Moy Ramos DO ~ Date Dictated: 10/25/24 1323 Date Transcribed: Molded Frames Assembler: RF Signed [facility]09-16-2025 Procedure note [facility] Medical Records Department [address] [place] [address] Provation Physician Letter MR#: [id number] Acct: [id number] Name: SANDIE WAGGONER DAWSON Rep #:[id number] : 1945 79 From: Moy Ramos DO PCP: Dr. Desiree Tapia MD Status:REG [facility] 10/25/2024 Desiree Tapia [address] [place] [address] Re : Upper GI endoscopy procedure for Sandie Waggoner Dear Dr. Tapia This procedure was performed on Friday, October 25, 2024. My impressions and recommendations are as follows: Impressions : - Normal esophagus. - A single non-bleeding angiodysplastic lesion in the stomach. Treated with a heater probe. - Three bleeding angiodysplastic lesions in the duodenum. Treated with a heater probe. - No specimens collected. Recommendations : - Discharge patient to home (ambulatory). - Capsule endoscopy - Abdominal u/s with elastography regarding liver disease - Continue present medications. My findings are described in the full procedure note, which is enclosed. If I can be of further assistance, please feel free to contact me at . Sincerely, Moy Ramos DO 10/25/2024 1:53:07 PM This report has been signed electronically. 10/25/24 1353 Date _ Myo Ramos DO Cosigner Signature: Date (if indicated) CC: Dr. Desiree Tapia MD; Moy Ramos DO ~ Date Dictated: 10/25/24 1323 Date Transcribed: Molded Frames Assembler: RF Signed [facility]09-16-2025 History and physical note [facility] Medical Records Department [address] [place] [address] History & Physical Exam 10/25/24 1247 MR#: [id number] Acct: [id number] Name: SANDIE WAGGONER DAWSON Rep #:[id number] : 1945 79 From: Moy Ramos DO PCP: Dr. Desiree Tapia MD Status:REG [facility] Location: [place] [address]-1 HPI - General General Date of Admission: 10/25/24 Date of Service: 11/16/24 Chief Complaint: Anemia HPI Narrative SANDIE WAGGONER, is a 79 F who presents with the Chief Complaint: Anemia BGI established 11/26/2023 referred from hematology due to occasional problems with swallowing and chronic iron deficiency anemia. Patient with dysphagia episodes up to 3 times per week dysphagia is to solids and liquids last colonoscopy 15 years ago no history of EGD EGD 01/04/2024 No endoscopic esophageal abnormality to explain patient's dysphagia. - Small hiatal hernia. - Chronic gastritis. Biopsied. - Erosive gastropathy with stigmata of recent bleeding. Treated with a heater probe. - Chronic duodenitis. Biopsied. OV 10/21/24 patient seen by primary care provider who ordered blood work which showed a hemoglobin is 8.3 which prompted patient to make follow-up appointment. Patient having extreme fatigue and shortness of breath with exertion. Sometimes she is too tired to chew her food. Patient continues with omeprazole. She was started on iron 2 weeks ago. She denies black/tarry stool. [facility] Medical History Thyroid disease Post-menopausal Insulin dependent diabetes mellitus Ambulates with cane Low iron Anemia Skin tear Migraine headache DDD (degenerative disc disease), cervical Lightheadedness Dietary restriction Difficulty swallowing History of hiatal hernia History of GI bleed Non-smoker Shortness of breath on exertion Leg cramps History of pain when walking History of edema Cardiology follow-up encounter Heart murmur History of Holter monitoring Wears glasses Thyroid disease History of echocardiogram Walker as ambulation aid Pancytopenia Thalamic infarct, acute Diabetic retinopathy Stroke Shingles Neuropathy High cholesterol Arthritis GERD (gastroesophageal reflux disease) Rosacea Post-polio syndrome History of poliomyelitis HTN (hypertension) Home Medications ?Medication ?Instructions ?Recorded ?Last Taken ?Type atorvastatin 40 mg tablet 40 mg PO QHS #30 tabs Unknown Rx losartan 100 mg tablet 100 mg PO DAILY 05/07/22 07:30 History miscellaneous medical supply #2 ea 07/17/22 Unknown Rx glipizide 5 mg tablet 5 mg PO DAILY diabetes 08/04 Unknown History ketoconazole 2 % shampoo 1 applic topical 3XW PRN PER 08/05/23 Unknown History metformin 500 mg tablet 500 mg PO BID diabetes 08/04 Unknown History amlodipine 10 mg tablet 10 mg PO DAILY 12/31/2310/10 07:30 History omeprazole 40 mg capsule,delayed 40 mg PO BID #60 caps 01/04/24 10/25/24 07:30 Rx release insulin glargine 100 unit/mL (3 18 unit subcut BID dm 04/19/24 Unknown History mL) subcutaneous pen (Lantus Solostar U-100 Insulin) aspirin 81 mg tablet,delayed 81 mg PO .QOD 10/21/24 Un known History release (Adult Low Dose Aspirin) ferrous fumarate 324 mg (106 mg 324 mg PO DAILY Unknown History iron) tablet gabapentin 100 mg capsule 100 mg PO QODAY 10/21/24 Unk nown History Allergy/AdvReac Type Severity Reaction Status Date / Time Sulfa (Sulfonamide Allergy Unknown Hives Verified 10/25/24 12:26 Antibiotics) adhesive tape AdvReac Intermediate Rash Verified 10/25/24 12:26 latex AdvReac skin Verified 10/25/24 12:26 reaction Family History Father Diabetes Hypertension High cholesterol Angina at rest Heart disease Kidney disease Mother Bowel disease Grandmother CVA (cerebral vascular accident) Aunt CVA (cerebral vascular accident) Surgical History History of esophagogastroduodenoscopy (EGD) Hx of colonoscopy Hx of right cataract extraction Hx of left cataract extraction Hx of lithotripsy Social History household members: spouse current occupational status: retired Smoking Status: Never smoker second hand exposure: No alcohol intake: never substance use type: does not use caffeine: Yes Type: coffee Number of servings: 1 what type of physical activity do you participate in: other frequency: 1-2 times per week elijah/druze: Quaker seatbelt use: always ROS Constitutional Constitutional: Denies fatigue, fever(s), poor appetite, weight gain or weight loss Gastrointestinal Gastrointestinal: Denies belching, bloating, change in bowel habits, change in stool character, chewing difficulty, coffee ground emesis, constipation, cramping, diarrhea, dyspepsia, dysphagia, earlysatiety, excessive flatus, fecalincontinence, heartburn, hematemesis, hematochezia, hemorrhoids, loose stools, melena, nausea, odynophagia, rectal bleeding, tenesmus, vomiting or weight changes Vital Signs Vital Signs Vital Signs: 10/25/24 12:27 10/25/24 12:27 10/25/24 12:44 Temperature 99.5 F H 99.5 F H Temperature Source Temporal Pulse Rate 80 80 Respiratory Rate 18 18 Respiratory Pattern Normal Blood Pressure 157/51 H 157/51 H Blood Pressure Mean 86 Blood Pressure Source Monitor Blood Pressure Position Sitting Blood Pressure Location Right Arm Pulse Ox 100 100 Oxygen Delivery Method Room Air Room Air Weight Weight: 150 lb 5.684 oz Body Mass Index (BMI) 28.4 Physical Exam Const alert, oriented x3, no apparent distress and healthy appearing General Appearance: cooperative GI normal to inspection, nondistended, normoactive bowel sounds, soft to palpation,non-tender and non-distended Percussion: normal to percussion Rectal Exam: deferred Assessment & Plan Assessment/Plan (1) Anemia: (2) Dysphagia: PLAN: Assessment and Plan Assessment and Plan (1) Iron deficiency anemia: Status: Chronic Qualifiers: Iron deficiency anemia type: chronic blood loss Qualified Code(s): D50.0 - Iron deficiency anemia secondary to blood loss (chronic) Plan: Sandie is an 79-year-old female patient here today for evaluation of low hemoglobin. Patient last EGD in 2023 which showed erosive gastropathy that was bleeding and cauterized. Patient saw her primary care provider at the end of September 2024 and hemoglobin was ordered which was 8.3. Per chart, this is the lowest her hemoglobin has been since 2013. Patient endorsing extreme fatigue, lightheadedness and shortness of breath on exertion. Denying black or tarry stool. I have ordered repeat CBC and CM pending result may have to refer her [facility] ED. She was scheduled for EGD next week. She will continue PPI and iron inthe meantime. - EGD - CBC - Continue PPI - Follow-up after procedure Orders: Orders CBC W/Diff, Automated Today D64.9 - Anemia, unspecified Comprehensive Metabolic Profil Today D50.0 - Iron deficiency anemia secondary to blood loss (chronic) 10/25/24 1249 Cosigner Signature (if applicable): CC: Dr. Desiree Tapia MD; Moy Ramos, DO~ Signed [facility]09-16-2025 Consult note [facility] Medical Records Department [address] [place] [address] Pre-Anesthesia Evaluation 10/25/24 1237 MR#: [id number] Acct: [id number] Name: SANDIE WAGGONER Rep #:[id number] : 1945 79 From: Magrarita mckeon CRNA PCP: Dr. Desiree Tapia MD Status:[facility] Y Race: C Location: [place] [address] ASA Classification* ASA Classification ASA Classification: 3 Assessment & Plan Anesthesia* Anesthesia Assessment Anesthesia Assessment: Discussed sedation and/or anesthesia options, risks, benefits, and alternatives with patient/parents/legal guardian/POA. Questions invited. The patient/parents/legal guardian/POA seems to understand and agrees to proceedwith anesthesia plan. Reviewed the physical assessment, medical history, allergy history and patient home medications list prior to surgery/procedure/anesthetic and documented any changes. Performed airway and anesthesia risk assessments. Anesthesia Type Anesthesia Type: MAC History Source History Obtained from:: Patient and Chart Anesthesia Focused Assessment* Temperature: 99.5 F Pulse Rate: 80 Blood Pressure: 157/51 Respiratory Rate: 18 Pulse Ox: 100 Oxygen Delivery Method: Room Air Airway Assessment Mouth opens: >3 cm Mallampati Score: I Teeth Condition: Intact Neck Range of motion (ROM): Full ROM Labs Anesthesia Preop lab: CBC WBC 4.2 K/mm3 (4.4-11.0) L 10/21/24 09:05 10/21/24 RBC 3.19 M/mm3 (4.2-5.4) L 10/21/24 09:05 10/21/24 Hgb 8.1 g/dL (12.0-15.0) L 10/21/24 09:05 10/21/24 Hct 26.7 % (37-47) L 10/21/24 09:05 10/21/24 Plt Count 164 K/mm3 (150-450) 10/21/24 09:05 10/21/24 CHEMISTRY Potassium 3.9 mmol/L (3.3-5.1) 10/21/24 09:05 10/21/24 Sodium 141 mmol/L (133-145) 10/21/24 09:05 10/21/24 BUN 21 mg/dL (4-19) H 10/21/24 09:05 10/21/24 Creatinine 1.35 mg/dL (0.70-1.20) H 10/21/24 09:05 Glucose 170 mg/dL (70-99) H 10/21/24 09:05 10/21/24 POC Glucose 99 mg/dL (74-106) 01/04/24 07:18 01/04/24 TSH 4.760 uIU/mL (0.300-4.200) H 10/04/24 13:47 COAG PT 14.7 SECONDS (11.7-14.9) 09/09/21 12:00 Pre-Assessment Diagnosis/Proposed Procedure Planned Operative Procedure(s): EGD Anesthesia History Anesthesia History - environmental conservation officer: Anesthesia History - environmental conservation officer Hx Hospitalization No 10/21/24 11:31 Any Problems With Anesthesia No 10/21/24 11:31 Cholinesterase deficiency No 10/21/24 11:31 You/Your Family Experience No 10/21/24 11:31 fever (hyperthermia) with Relationship Recent Exposure to Contagious No 10/25/24 12:27 Disease Does patient have nerve No 10/21/24 11:31 stimulator Patient instructed to have device shut off --Does patient have Pacemaker No 10/25/24 12:27 or ICD? When Was Last Pacemaker Check QUESTION #4 FULL TEXT: You/Your Family Experience fever (hyperthermia) with Anesthesia Last Oral Intake Last Oral intake: Last Oral Intake NPO since 07:30 10/25/24 12:27 Meds taken in AM with sips of Yes 10/25/24 12:27 water? Meds patient instructed to amlodipine, losartan, 10/25/24 12:27 take am of surgery omeprazole PONV PONV - environmental conservation officer: PONV - environmental conservation officer Female Yes 10/21/24 11:31 HX of Motion Sickness No 10/21/24 11:31 HX of N/V After Surgery No 10/21/24 11:31 Non-Smoker Yes 10/21/24 11:31 Duration of Surgery greater No 10/21/24 11:31 than 60 minutes Number of Risk Factors 2 10/21/24 11:31 PONV Score Moderate Risk 10/21/24 11:31 Height & Weight Height & Weight: Anesthesia: Height & Weight Height 5 ft 1 in 10/25/24 12:27 Weight: 68.2 kg 10/25/24 12:27 Body Mass Index (BMI) 28.4 10/25/24 12:27 Respiratory Assessment Respiratory Assessment - environmental conservation officer: Respiratory Tract Infection Hx - environmental conservation officer Hx Respiratory Tract Infection No 10/21/24 11:31 STOP Sleep Apnea STOP Sleep Apnea - environmental conservation officer: STOP Sleep Apnea - environmental conservation officer Hx Hypertension Yes: CONTROLLED WITH MED 10/21/24 11:31 Hx Sleep Apnea No 10/21/24 11:31 CPAP BIPAP Do you snore loudly (louder Yes 10/21/24 11:31 than talking or can be heard Do you often feel tired/ Yes 10/21/24 11:31 fatigued/ sleepy during daytime? Has anyone observed you stop No 10/21/24 11:31 breathing during sleep? STOP Results Positive 10/21/24 11:31 QUESTION #5 FULL TEXT : Do you snore loudly (louder than talking or can be heard through closeddoors)? Tobacco Use History Tobacco Use History - environmental conservation officer: Tobacco Use History - environmental conservation officer Tobacco Use Non-smoker 09/10/21 10:00 Smoking Status Never smoker 10/21/24 11:31 Hx Tobacco Use No 10/21/24 11:31 Years Smoking Packs Smoked per Day Smoking Cessation Date was within the last 15 years Hx Smoking Cessation Date Hx Smoking Cessation No: patient doesn't smoke 10/21/24 11:31 Counseling Hematologic Medial History Hematologic Hx - environmental conservation officer: Hematologic Medical Hx - crocheter Hx of Blood Transfusion No 10/21/24 11:31 Hx of Transfusion in last 3 No 10/21/24 11:31 Months Date of Last Transfusion (if within last 3 months) Ever experience any problems No 10/21/24 11:31 with transfusion(s)? Specify any problems Hx of Preganancy in last 3 No 10/21/24 11:31 Months Nurse Filling Out Transfusion DSCHRIBER 10/21/24 11:31 & Questions: Date: 10/21/24 10/21/24 11:31 Time: 11:34 10/21/24 11:31 Patient unable to answer at this time (ie. confused, unrespo /Reproduction History /Reproductive History - environmental conservation officer: /Reproductive Hx- environmental conservation officer Hx Now No 10/21/24 11:31 Gestational Age (in weeks): EDC: Hx Hx Para Hx Section SAB No 10/21/24 11:31 Active Medications Active Medications: Current Medications Generic Name Dose Route Start Last Admin Trade Name Freq PRN Reason Stop Dose Admin Lactated Ringer's 1,000 mls @ 15 mls/hr 10/25/24 12:15 10/25/24 12:30 IV 15 mls/hr .Q48H MARLENE Administration PFSH Medical History (Updated 10/21/24 @ 11:55 by Cristina Martinez) Thyroid disease Post-menopausal Insulin dependent diabetes mellitus Ambulates with cane Low iron Anemia Skin tear Migraine headache DDD (degenerative disc disease), cervical Lightheadedness Dietary restriction Difficulty swallowing History of hiatal hernia History of GI bleed Non-smoker Shortness of breath on exertion Leg cramps History of pain when walking History of edema Cardiology follow-up encounter Heart murmur History of Holter monitoring Wears glasses Thyroid disease History of echocardiogram Walker as ambulation aid Pancytopenia Thalamic infarct, acute Diabetic retinopathy Stroke Shingles Neuropathy High cholesterol Arthritis GERD (gastroesophageal reflux disease) Rosacea Post-polio syndrome History of poliomyelitis HTN (hypertension) Home Medications ?Medication ?Instructions ?Recorded ?Last Taken ?Type atorvastatin 40 mg tablet 40 mg PO QHS #30 tabs Unknown Rx losartan 100 mg tablet 100 mg PO DAILY 05/07/22 07:30 History miscellaneous medical supply #2 ea 07/17/22 Unknown Rx glipizide 5 mg tablet 5 mg PO DAILY diabetes 08/04 Unknown History ketoconazole 2 % shampoo 1 applic topical 3XW PRN PER 08/05/23 Unknown History metformin 500 mg tablet 500 mg PO BID diabetes 08/04 Unknown History amlodipine 10 mg tablet 10 mg PO DAILY 12/31/2310/10 07:30 History omeprazole 40 mg capsule,delayed 40 mg PO BID #60 caps 01/04/24 10/25/24 07:30 Rx release insulin glargine 100 unit/mL (3 18 unit subcut BID dm 04/19/24 Unknown History mL) subcutaneous pen (Lantus Solostar U-100 Insulin) aspirin 81 mg tablet,delayed 81 mg PO .QOD 10/21/24 Un known History release (Adult Low Dose Aspirin) ferrous fumarate 324 mg (106 mg 324 mg PO DAILY Unknown History iron) tablet gabapentin 100 mg capsule 100 mg PO QODAY 10/21/24 Unk nown History Allergy/AdvReac Type Severity Reaction Status Date / Time Sulfa (Sulfonamide Allergy Unknown Hives Verified 10/25/24 12:26 Antibiotics) adhesive tape AdvReac Intermediate Rash Verified 10/25/24 12:26 latex AdvReac skin Verified 10/25/24 12:26 reaction Family History Father Diabetes Hypertension High cholesterol Angina at rest Heart disease Kidney disease Mother Bowel disease Grandmother CVA (cerebral vascular accident) Aunt CVA (cerebral vascular accident) Surgical History (Updated 10/21/24 @ 11:49 by Cristina Martinez) History of esophagogastroduodenoscopy (EGD) Hx of colonoscopy Hx of right cataract extraction Hx of left cataract extraction Hx of lithotripsy Social History household members: spouse current occupational status: retired Smoking Status: Never smoker second hand exposure: No alcohol intake: never substance use type: does not use caffeine: Yes Type: coffee Number of servings: 1 what type of physical activity do you participate in: other frequency: 1-2 times per week elijah/druze: Quaker seatbelt use: always Review of Systems (Anesthesia) ROS Narrative System reviewed and no additional complaints, except as documented. 10/25/24 1244 laurelki REGULATORY SPECIALIST> Date _ Margarita Gonzalez CRNA Cosigner Signature: Date CC: ~ Signed [facility]07-21-2025 Procedure note [facility] Speech Pathology [address] [place] [address] Modified Barium Swallow Study MR#: [id number] Acct: [id number] Name: SANDIE WAGGONER DAWSON Rep #:[id number] : 1945 79 From: Mandie Welch, [facility]-RN SUPPLEMENTAL Modified Barium Swallow Patient Information Study Date: 08/29/24 Study Time: 13:00 Direct Billable Minutes: 78 Total Minutes procedure & reportin Diagnosis: Dysphagia R13.10 Referring Physician: Surendra Hidalgo Reason for Referral: The patient was referred for MBSS by neurologist, Dr. Hidalgo, due to pt reporting to him concerns for coughing/choking w/ foods, drinks, and even saliva. Swallowing difficulty occurs ~1X/week. She reports swallowing trouble >20 years w/ unremarkable MBSS ~20 years ago. Pt denies swallowing difficulty worsening after CVA in 2021. Medical History: PMH: DM, Anemia, TIA, Thalamic infarct (2021), Dysphagia, Chronic renal failure,GERD, Post-polio syndrome, History of poliomyelitis, GI bleed per pt report, Hiatal hernia per pt report, Arthritis in cervical spine per pt report. Current Diet Ordered: Regular textures / Thin liquids Dentition: WNL and Natural Teeth Mental Status: WNL Respiratory Status: Oxygenating on Room Air Penetration-Aspiration Scale Penetration-Aspiration Scale: OBJECTIVE ASSESSMENT OF SWALLOW FUNCTION (QUANTITATIVE ? PER TRIAL): PENETRATION / ASPIRATION SCALE ([place]ARAB[place]): 1 = does not enter airway 2 = enters airway/above vocal folds/ejected 3 = enters airway/above vocal folds/not ejected 4 = enters airway/contacts vocal folds/ejected 5 = enters airway/contacts vocal folds/not ejected 6 = enters airway/below vocal folds/ejected 7 = enters airway/below vocal folds/not ejected despite effort 8 = enters airway/below vocal folds/no effort VIDEOFLOROSCOPIC SCALE SCORE (SARABIA): Grade I = aspiration of material that has penetrated into the laryngeal vestibule, intact cough reflex Grade II = aspiration < 10 % of the bolus, intact cough reflex Grade III = aspiration of < 10 % of the bolus, reduced cough reflex or aspiration of > 10 % of the bolus, intact cough reflex Grade IV = aspiration of > 10 % of the bolus, reduced cough reflex Penetration-Aspiration Scale Score Thin Liquid via teaspoon: Result: 1= does not enter airway Thin Liquid via teaspoon Trial 2: Result: 1= does not enter airway Thin Liquid via sequential sips: cup: Result: 1= does not enter airway Comment: Esophageal screen - Mild retention in the lower esophagus w/ retrograde flow. [place] Thick Liquid via small single sip: cup: Result: 1= does not enter airway Pudding via teaspoon: Result: 1= does not enter airway Comment: Esophageal screen - Retention in the lower and middle esophagus. Thin Liquid via sequential sips:straw: Result: 1= does not enter airway Comment: Esophageal screen - Mild retention of liquids in the lower esophagus w/ retrograde flow. 1/2 Cookie: Result: 1= does not enter airway Comment: Esophageal screen - Minimal retention of cookie in the lower esophagus. Thin Liquid via single sip: straw: Result: 1= does not enter airway Oral Phase Labial Seal: No Labial Escape Tongue Control During Bolus Hold: Posterior escape of less than half of bolus Bolus Preparation/Mastication: Timely and efficient chewing and mashing Bolus Transport/Lingual Motion: Delayed initiation of tongue motion Oral Residue: Trace residue lining oral structures Pharyngeal Phase Initiation of Pharyngeal Swallow: Bolus head at posterior laryngeal surgace of epiglottis Soft Palate Elevation: Trace column of contrast/air between soft palate and pharyngeal wall Laryngeal Elevation: Comp. Superior move thyroid cart w/comp. apprx arytenoid cart-epig pet Anterior Hyoid Excursion: Complete anterior movement Epiglottic Movement: Complete inversion Laryngeal Vestibule Closure at Height of Swallow: Complete; no air/contrast in laryngeal vestibule Pharyngeal Stripping Wave: Present - complete Pharyngoesophageal Segment Opening: Parital distension and partial duration; parital obstruction offlow Tongue Base Retraction: Trace column of contrast between tongue base & post. pharyngeal wall Pharyngeal Residue: Trace residue within or on pharyngeal structures Esophageal Phase Esophageal Clearance: Esophageal retention w/ retrograde flow through pharyngoesophageal seg Diagnosis/Impression Diagnosis: Esophageal dysphagia R13.14; Oropharyngeal swallow function grossly WNL Impression: Oropharyngeal swallow function grossly WNL as compared to same-age peers. The esophageal phase is primarily marked by... -Trace retention in the UES w/ retrograde flow to the -Mild retention of liquids in the lower esophagus w/ retrograde flow. -Moderate retention of pudding in the middle and lower esophagus, which mostly cleared w/ liquid wash. -Minimal retention of cookie in the lower esophagus. Recommendations Diet: Regular Textures and Thin Liquids Compensatory Strategies: Small Bites, Small Sips, Slow Rate, Alternate bites/solids and sips/liquids (Take a sip after every 1-2 bites), Sitting upright and Remain sitting upright for 30 minutes after PO intake Recommend Repeat Modified Barium Swallow: No Need for Skilled Speech Therapy Services: No Recommended Referrals: GI Consult Education Completed: 1. Described result of evaluation. Status Active ST Patient: Active Contact Information [facility] Speech Therapy:: Mandie Pham M.A. CCC-RN SUPPLEMENTAL? Speech-Language Pathologist?? [facility] [address] [place] [address]? [email or web address]?? [phone] 08/29/24 1418 JAKE Gaston-RN SUPPLEMENTAL> Date/Time Mandie Pham M.A. CCC-RN SUPPLEMENTAL Co-Signature Required for all Medicare patients Date/Time Co-Signature CC: ~ [facility]05-20-2025 Evaluation note* Diagnosis Onset Date Resolution Status Admit Date Dysphagia acute June 28, 2024 12:57pm Polyneuropathy chronic June 28, 2024 12:57pm Post herpetic neuralgia chronic [facility] 2024 12:57pm 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 102024 12:57pm Cerebrovascular disease inactive [facility] 2024 12:57pm Impacted cerumen, right ear acute June 28, 2024 2:00pm [facility] Work Phone: 1(641) 946-857605-20-2025 Evaluation note* Diagnosis Onset Date Resolution Status Admit Date Dysphagia acute June 28, 2024 12:57pm Polyneuropathy chronic June 28, 2024 12:57pm Post herpetic neuralgia chronic [facility] 2024 12:57pm 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 102024 12:57pm Cerebrovascular disease inactive [facility] 2024 12:57pm Impacted cerumen, right ear acute June 28, 2024 2:00pm Iron deficiency anemia chronic Se ptember 2024 8:20am [facility] Work Phone: 1(574) 352-289405-20-2025 Evaluation note* Diagnosis Onset Date Resolution Status Admit Date Dysphagia acute June 28, 2024 12:57pm Polyneuropathy chronic June 28, 2024 12:57pm Post herpetic neuralgia chronic M [facility] 2024 12:57pm 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 102024 12:57pm Cerebrovascular disease inactive M ay 2024 12:57pm Impacted cerumen, right ear acute June 28, 2024 2:00pm Iron deficiency anemia chronic Se pt2024 8:20am Anemia acute October 11:57am Dysphagia acute October 11:57am [facility] Work Phone: 1(784) 804-782702-11-2025 Evaluation note* Diagnosis Onset Date Resolution Status Admit Date Cerebrovascular disease chronic F ebruary 2024 12:49pm Polyneuropathy chronic March 122024 12:49pm Post herpetic neuralgia chronic F ebruary 2024 12:49pm Post-polio syndrome chronic Febru 2024 12:49pm [facility] Work Phone: 1(772) 155-154102-11-2025 Evaluation note* Diagnosis Onset Date Resolution Status Admit Date Cerebrovascular disease chronic F ebruary 2024 12:49pm Polyneuropathy chronic March 122024 12:49pm Post herpetic neuralgia chronic F ebruary 2024 12:49pm Post-polio syndrome chronic Febru mitch 2024 12:49pm Carotid artery stenosis acute M [facility] 2024 12:59pm Peripheral arterial disease acute April 19, 2024 12:59pm [facility] Work Phone: 1(307) 907-463002-11-2025 Evaluation note* Diagnosis Onset Date Resolution Status Admit Date Cerebrovascular disease chronic F ebruary 2024 12:49pm Polyneuropathy chronic March 122024 12:49pm Post herpetic neuralgia chronic F ebruary 2024 12:49pm Post-polio syndrome chronic Febru mitch 2024 12:49pm Carotid artery stenosis acute M [facility] 2024 12:59pm Peripheral arterial disease acute April 19, 2024 12:59pm Dysphagia acute June 28, 2024 12:57pm 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 102024 12:57pm [facility] Work Phone: 1(982) 553-554511-25-2024 [facility] Medical Records Department [address] [place] [address] History Physical Exam 01/04/24 0740 MR#: [id number] Acct: [id number] Name: SANDIE WAGGONER DAWSON Rep #: [id number] : 1945 78 From: Moy Friend PCP: Dr. Desiree Tapia MD Status:[facility] Location: [place] [address] History and Physical Date of Admission: 01/04/24 Chief Complaint: dysphagia, anemia Details: SANDIE WAGGONER, is a 78 F who presents to the office today for establishment with [facility]. Pt has a PMHx of chronic renal failure, anemia, diabetic retinopathy, carotid artery stenosis, PAD and pancytopenia. Pt was referred here from hematology due to occasional problems with swallowing and chronic iron deficiency anemia. She tells me she will have episodes of choking on food up to 3x per week. She will choke on both solids and liquids. Her most recent episode of while eating a uzbek fernandez. She is not too concerned about these symptoms but wanted to be evaluated. She does take oral iron so her stools are dark. She would not be able to tell if she had blood in her stool. She was struggling with diarrhea in the past but the iron has fixed that. Her last colonoscopy was probably [address] Dang and she reports it was normal. She does not recall ever having an EGD. ROS Const Constitutional: Positive for fatigue; No anorexia, fever(s), weight change or sleep problems Eyes Eyes: No change in vision ENT ENT: Positive for difficulty swallowing; No abnormal hearing, mouth lesions, tongue swelling or throat swelling Resp Respiratory: No cough or shortness of breath Cardio Cardiology: No chest pain at rest, chest pain with exertion, shortness of breath or dyspnea on exertion Gastro GI: Positive for difficulty swallowing Genitourinary-Female: No difficulty urinating or burning urination Musc Musculoskeletal: No joint pain, joint swelling, muscle weakness or decreased muscle mass Skin Skin: No hair loss in leg, yellowing of the eye, itchy eyes, rash, skin ulcer or skin swelling Neuro Neurology: No abnormal hearing, abnormal movements, confusion, unsteady gait/balance or memory loss Psych Psychiatric: No anxiety, No confusion and No memory loss Endo Endocrine: Positive for fatigue; No weight change Aller/Imm Allergy/Immunologic: No itchy eyes, throat swelling or tongue swelling Tyson/Lymp Hematologic/Lymphatic: No easy bleeding, easy bruising or enlarged lymph nodes Exam Const General: cooperative and comfortable Nutritional Appearance: average body habitus and well nourished HENMT Head: normal to inspection Ears: hearing grossly normal bilaterally Nose: external nose normal Face and sinus: normal facial exam Eyes General: appearance normal, both eyes and all related structures Neck Neck: normal visual inspection Chest Chest palpation inspection: normal inspection of the chest Resp Effort Inspection: normal respiratory effort GI Inspection: normal to inspection Palpation: no hepatosplenomegaly Skin General: no rashes or lesions noted Neuro General: patient alert Extrem General: normal to inspection Psych Affect: normal affect Assessment and Plan Assessment and Plan (1) Dysphagia: Status: Acute Plan: Pt is an 78 yo female presenting today for episodes of dysphagia to both solids and liquids. She has choking episodes up to 3x per week. She does not feel this is concerning. She has never had an EGD. She does not have alarm signs or symptoms such as weight loss, fever or blood in her stool. She has been persistently anemic for some time now and has been seeing heme/onc. She will need to undergo EGD to rule out UGI bleeding from inflammation, ulcers or AVMs. She does not wish to have a colonoscopy. The most common source of GI bleeding is typically the UGI tract therefore I will not recommend colonoscopy at this time. She is agreeable to this. -EGD -Pt will probably need PPI therapy in the future but will hold off until scope -Consider colonoscopy in the future -F/u as needed (2) Iron deficiency anemia: Status: Chronic Qualifiers: Iron deficiency anemia type: chronic blood loss Qualified Code(s): D50.0 - Iron deficiency anemia secondary to blood loss (chronic) I have examined the patient and the H P has been reviewed. There are no clinical changes since date of exam. 01/04/24 0740 Gissel Signature (if applicable): CC: Dr. Desiree Tapia MD; Moy Ramos DO [facility] noteWLancaster Municipal HospitalConsult note Author Stanislav Altamirano [facility] Note Date/Time October 25, 2024 1:53pm [facility] Medical Records Department [address] [place] [address] Anesthesia Postop Eval I 10/25/24 1352 MR#: [id number] Acct: [id number] Name: SANDIE WAGGONER Rep #:[id number] : 1945 79 From: Stanislav Altamirano PCP: Dr. Desiree Tapia MD Status:[facility] [place]: C Location: [place] [id number] Anesthesia: Postop Eval I Current Vital Signs Temperature: 98.3 F Pulse Rate: 71 Blood Pressure: 127/41 Respiratory Rate: 16 Pulse Ox: 96 Oxygen Delivery Method: Room Air Assessment Airway patent: Yes Spontaneous unlabored respirations: Yes Mental status: Awake and Calm nausea: No Vomiting: No Anesthesia Complication: No Fluid Hydration Crystalloid volume administer (ml): 300 Total IV fluid infused: 300 Progress Note Anesthesia document: Postop Eval 1 completed: Yes 10/25/24 1353 <Electronically signed by Stanislav Altamirano > Date _ Stanislav Chauhan Signature: Date CC: ~ Signed [facility] Work Phone: Evaluation note* Diagnosis Onset Date Resolution Status Ataxia acute Disequilibrium acute Weakness acute [facility] Work Phone: Evaluation note* Diagnosis Onset Date Resolution Status Ataxia acute 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 Diabetes mellitus acute Disequilibrium acute Rosacea acute Weakness acute [facility] Work Phone: Evaluation noteNo assessment information available [facility] Work Phone: Evaluation note* Diagnosis Onset Date Resolution Status Absent pedal pulses acute Bilateral ankle pain acute Bilateral carotid bruits acu te Bilateral foot pain acute Cerebrovascular disease cleaner and dyer patricia Polyneuropathy chronic Post-polio syndrome chronic [facility] Work Phone: Evaluation note* Diagnosis Onset Date Resolution Status Absent pedal pulses acute Bilateral ankle pain acute Bilateral carotid bruits acu te Bilateral foot pain acute Cerebrovascular disease cleaner and dyer patricia Polyneuropathy chronic Post-polio syndrome chronic Carotid artery stenosis acut e Peripheral arterial disease acute [facility] Work Phone: Evaluation note* Diagnosis Onset Date Resolution Status Hypersomnia acute Cerebrovascular disease cleaner and dyer patricia Polyneuropathy chronic Post herpetic neuralgia cleaner and dyer patricia [facility] Reason for referral (narrative)No reason for referral information availablePark[facility] Work Phone: Summary Purpose Family History Relationship Condition Age at Onset Recorded Date/T teodoro Not Specified Cerebrovascular accident (CVA) Unknown Relationship Condition Age at Onset Recorded Date/T teodoro Not Specified Cerebrovascular accident (CVA) Unknown father Diabetes mellitus Unknown Hypertension Unknown High blood cholesterol Unknown Relationship Condition Age at Onset Recorded Date/T teodoro father Diabetes mellitus Unknown Hypertension Unknown High blood cholesterol Unknown Angina at rest Unknown Cardiac disease Unknown Disorder of kidney Unknown mother Disorder of intestine Unknown grandmother Cerebrovascular accident (CVA) Unknown aunt Cerebrovascular accident (CVA) Unknown Advance Directives Advance Directive Response Recorded Date/ Time Living Will Yes September 09, 2021 11:37am Power of Accountant Machine Processing Yes September 09 11:37am Name of Medical Power of Accountant Machine Processing VANDANA WAGGONER September 09, 2021 11:37am Advance Directive Response Recorded Date/ Time Name of Medical Power of Accountant Machine Processing Vandana Waggoner September 09, 2021 2:25pm Living Will Yes September 09, 2021 2:25pm Power of Accountant Machine Processing Yes September 09 2:25pm Advance Directive Response Recorded Date/ Time Living Will Yes September 09, 2021 1:25pm Power of Accountant Machine Processing Yes September 09 1:25pm Advance Directive Response Recorded Date/ Time Living Will Yes September 09, 2021 2:25pm Power of Accountant Machine Processing Yes September 09 2:25pm Advance Directive Response Recorded Date/ Time Living Will Yes September 09, 2021 1:25pm Power of Accountant Machine Processing Yes September 09 1:25pm Living Will Yes December 30, 024 10:03am Power of Accountant Machine Processing Yes December 31, 2023 10:03am Name of Medical Power of Accountant Machine Processing VANDANA December 31, 2023 10:03am Advance Directive Response Recorded Date/ Time Living Will Yes September 09, 2021 2:25pm Do you have a Healthcare Power of Accountant Machine Processing? Yes September 09, 2021 2:25pm Living Will Yes December 30, 2 024 11:03am Do you have a Healthcare Power of Accountant Machine Processing? Yes December 31, 2023 11:03am Name of Medical Power of Accountant Machine Processing VANDANA December 31, 2023 11:03am Advance Directive Response Recorded Date/ Time Living Will Yes September 09, 2021 2:25pm Do you have a Healthcare Power of Accountant Machine Processing? Yes September 09, 2021 2:25pm Advance Directive Response Recorded Date/ Time Do you have a Healthcare Power of Accountant Machine Processing? Yes October 21, 2024 11:31am Chief Complaint and Reason for Visit Chief Complaint ATAXIA Reason for Visit Ataxia Disequilibrium Weakness Chief Complaint ATAXIA ATAXIA ATAXIA Reason for Visit Ataxia Cerebrovascular accident (CVA) of right thalamus Diabetes mellitus Disequilibrium Rosacea Weakness Chief Complaint STROKE ABSENT RT PEDAL PULSE, BILAT CAROTID BRUITS Reason for Visit Absent pedal pulses Bilateral ankle pain Bilateral carotid bruits Bilateral foot pain Cerebrovascular disease Polyneuropathy Post-polio syndrome Chief Complaint STROKE ABSENT RT PEDAL PULSE, BILAT CAROTID BRUITS KNOWN GALLSTONES POSTPOLIO SYNDROME POSTPOLIO SYNDROME Reason for Visit Absent pedal pulses Bilateral ankle pain Bilateral carotid bruits Bilateral foot pain Cerebrovascular disease Polyneuropathy Post-polio syndrome Chief Complaint STROKE ABSENT RT PEDAL PULSE, BILAT CAROTID BRUITS KNOWN [place]ES POSTPOLIO SYNDROME POSTPOLIO SYNDROME Peripheral artery disease CERVICAL PAIN Reason for Visit Absent pedal pulses Bilateral ankle pain Bilateral carotid bruits Bilateral foot pain Cerebrovascular disease Polyneuropathy Post-polio syndrome Carotid artery stenosis Peripheral arterial disease Chief Complaint 4 M FU HYPERSOMNIA Reason for Visit Hypersomnia Cerebrovascular disease Polyneuropathy Post herpetic neuralgia Chief Complaint 4 M FU HYPERSOMNIA BILAT CAROTID STENOSIS Reason for Visit Hypersomnia Cerebrovascular disease Polyneuropathy Post herpetic neuralgia Chief Complaint Admit Date 6 mo fu March 22, 2024 12:49pm Reason for Visit Admit Date Cerebrovascular disease March 22 025 12:49pm Polyneuropathy March 22, 2024 12:49pm Post herpetic neuralgia March 22 025 12:49pm Post-polio syndrome March 22, 2024 12:49pm Chief Complaint Admit Date 6 mo fu March 22, 2024 12:49pm CAROTID STENOSIS April 19, 2024 9:4 1am 1 Y FU April 19, 2024 12: 59pm Reason for Visit Admit Date Cerebrovascular disease March 22 025 12:49pm Polyneuropathy March 22, 2024 12:49pm Post herpetic neuralgia March 22 025 12:49pm Post-polio syndrome March 22, 2024 12:49pm Carotid artery stenosis April 19, 2024 12:59pm Peripheral arterial disease April 19, 2024 12:59pm Chief Complaint Admit Date 6 mo March 22, 2024 12:49pm CAROTID STENOSIS April 19, 2024 9:4 1am 1 Y FU April 19, 2024 12: 59pm 3 M FU June 28, 2024 12:57 pm Reason for Visit Admit Date Cerebrovascular disease March 22 025 12:49pm Polyneuropathy March 22, 2024 12:49pm Post herpetic neuralgia March 22 025 12:49pm Post-polio syndrome March 22, 2024 12:49pm Carotid artery stenosis April 19, 2024 12:59pm Peripheral arterial disease April 19, 2024 12:59pm Dysphagia June 28, 2024 12:57 pm Post-polio syndrome June 28, 2024 12:57 pm Chief Complaint Admit Date 6 mo fu February 11th, 2025 12:49pm CAROTID STENOSIS April 19, 2024 9:4 1am 1 Y FU April 19, 2024 12: 59pm 3 M FU June 28, 2024 12:57 pm CLOGGED R EAR June 28, 2024 2:00p m Chief Complaint Admit Date 3 M FU June 28, 2024 12:57 pm CLOGGED R EAR June 28, 2024 2:00p m DYSPHAGIA August 29, 2024 12:4 3pm Reason for Visit Admit Date Dysphagia June 28, 2024 12:57 pm Polyneuropathy June 28, 2024 12:57 pm Post herpetic neuralgia June 28, 2024 1 2:57pm Post-polio syndrome June 28, 2024 12:57 pm Cerebrovascular disease June 28, 2024 1 2:57pm Impacted cerumen, right ear June 28 2:00pm Chief Complaint Admit Date 3 M FU June 28, 2024 12:57 pm CLOGGED R EAR June 28, 2024 2:00p m DYSPHAGIA August 29, 2024 12:4 3pm Low Hemoglobin October 21, 2024 8:20am Reason for Visit Admit Date Dysphagia June 28, 2024 12:57 pm Polyneuropathy June 28, 2024 12:57 pm Post herpetic neuralgia June 28, 2024 1 2:57pm Post-polio syndrome June 28, 2024 12:57 pm Cerebrovascular disease June 28, 2024 1 2:57pm Impacted cerumen, right ear June 28 2:00pm Iron deficiency anemia October 21, 2 025 8:20am Chief Complaint Admit Date 3 M FU June 28, 2024 12:57 pm CLOGGED R EAR June 28, 2024 2:00p m DYSPHAGIA August 29, 2024 12:4 3pm Low Hemoglobin October 21, 2024 8:20am E ORDER October 21, 2024 8:58am Reason for Visit Admit Date Dysphagia June 28, 2024 12:57 pm Polyneuropathy June 28, 2024 12:57 pm Post herpetic neuralgia June 28, 2024 1 2:57pm Post-polio syndrome June 28, 2024 12:57 pm Cerebrovascular disease June 28, 2024 1 2:57pm Impacted cerumen, right ear June 28 2:00pm Iron deficiency anemia October 21, 2 025 8:20am Anemia October 25, 2024 11:57am Dysphagia October 25, 2024 11:57am Additional Source Comments INFORMATION SOURCE (unrecogn ized section and content) DATE CREATED AUTHOR 10/20/2017 [facility] DATE CREATED AUTHOR AUTHOR'S ORGANIZ ATION 01/18/2022 [facility] ([place]) DATE CREATED AUTHOR AUTHOR'S ORGANIZ ATION 10/24/2024 [facility] Goals (unrecognized section and content) Goals may be documented in a n alternate sectionGoals may be documented in an alternate sectionGoals may be documented in an alternate sectionGoals may be documented in an alternate sectionGoals may be documented in an alternate sectionGoals may be documented in an alternate sectionGoals may be documented in an alternate sectionGoals may be documented in an alternate sectionGoals may be documented in an alternate sectionGoals may be documented in an alternate sectionGoals may be documented in an alternate sectionGoals may be documented in an alternate section Care Teams (unrecognized sec tion and content) Team Status: Active Member Role Status Dates Dr. Desiere Tapia MD Family Provider Active Dr. Desiree Tapia MD Primary Care Provider Active Team Status: Inactive Member Role Status Dates Dr. Desiree Tapia MD Primary Care Provider, Referrin g Provider Active Dr. Surendra Hidalgo MD Attending Provider Active Team Status: Active Member Role Status Dates Dr. Desiree Tapia MD Primary Care Provider Active Dr. Arya Argueta MD Attending Provider Active Team Status: Inactive Member Role Status Dates Dr. Desiree Tapia MD Primary Care Provider Active Dr. Neetu Arceo DO Attending Provider Active Team Status: Inactive Member Role Status Dates Dr. Desiree Tapia MD Primary Care Provider Active Dr. Surendra Hidalgo MD Attending Provider, Referring Provider Active Team Status: Active Member Role Status Dates Dr. Desiree Tapia MD Primary Care Provider Active Dr. Arya Argueta MD Attending Provider Active Dr. Surendra Hidalgo MD Referring Provider Active Team Status: Active Member Role Status Dates Dr. Desiree Tapia MD Primary Care Provider Active Dr. Surendra Hidalgo MD Other Provider Active Dr. Yadira Estrada MD Attending Provider Active Team Status: Inactive Member Role Status Dates Dr. Desiree Tapia MD Primary Care Provider Active Dr. Surendra Hidalgo MD Attending Provider Active Team Status: Inactive Member Role Status Dates Dr. Desiree Tapia MD Primary Care Provider, Attendin g Provider Active Team Status: Inactive Member Role Status Dates Dr. Desiree Tapia MD Primary Care Provider, Referrin g Provider Active SUZETTE De La Torre Attending Provider Active Team Status: Inactive Member Role Status Dates Dr. Desiree Tapia MD Primary Care Prov ider, Attending Provider, Referring Provider Active Team Status: Inactive Member Role Status Dates Dr. Desiree Tapia MD Primary Care Provider Active Dr. Surendra Hidalgo MD Attending Provider Active Surendra OWENS MD Referring Provider Active Team Status: Inactive Member Role Status Dates Dr. Desiree Tapia MD Primary Care Provider Active SUZETTE Cavazos Attending Provider, Referring Provid er Active Team Status: Active Member Role Status Dates Dr. Desiree Tapia MD Primary Care Provider Active Team Status: Inactive Member Role Status Dates Dr. Desiree Tapia MD Primary Care Provider Active Start: January 04, 2024 End: January 04, 2024 Dr. Desiree Tapia MD Referring Provider Active Start: January 04, 2024 End: January 04, 2024 Dr. Moy Ramos DO Attending Provider Active Start: January 04, 2024 End: January 04, 2024 Team Status: Active Member Role Status Dates Dr. Desiree Tapia MD Primary Care Provider Active Start: January 04, 2024 Dr. Desiree Tapia MD Referring Provider Active Start: January 04, 2024 Dr. Moy Ramos DO Attending Provider Active Start: January 04, 2024 Dr. Moy Rmaos DO Other Provider Active St art: January 04, 2024 Team Status: Inactive Member Role Status Dates Dr. Desiree Tapia MD Primary Care Provider Active Start: January 11, 2024 End: January 11, 2024 Dr. Desiree aTpia MD Attending Provider Active Start: January 11, 2024 End: January 11, 2024 Dr. Desiree Tapia MD Referring Provider Active Start: January 11, 2024 End: January 11, 2024 Team Status: Inactive Member Role Status Dates Dr. Desiree Tapia MD Primary Care Provider Active Start: March 22, 2024 End: March 22, 2024 Dr. Desiree Tapia MD Referring Provider Active Start: March 22, 2024 End: March 22, 2024 Dr. Surendra Hidalgo MD Attending Provider Active Start: March 22, 2024 End: March 22, 2024 Team Status: Inactive Member Role Status Dates Dr. Desiree Tapia MD Primary Care Provider Active Start: April 01, 2024 End: April 01, 2024 Dr. Desiree Tapia MD Attending Provider Active Start: April 01, 2024 End: April 01, 2024 Team Status: Inactive Member Role Status Dates Dr. Desiree Tapia MD Primary Care Provider Active Start: April 19, 2024 End: April 19, 2024 SUZETTE Cavazos Attending Provider Active Star t: April 19, 2024 End: April 19, 2024 SUZETTE Cavazos Referring Provider Active Star t: April 19, 2024 End: April 19, 2024 Team Status: Active Member Role Status Dates Dr. Desiree Tapia MD Primary Care Provider Active Start: April 19, 2024 Dr. Arya Argueta MD Attending Provider Active S tart: April 19, 2024 SUZETTE Cavazos Referring Provider Active Star t: April 19, 2024 Team Status: Inactive Member Role Status Dates Dr. Desiree Tapia MD Primary Care Provider Active Start: April 19, 2024 End: April 19, 2024 Dr. Desiree Tapia MD Referring Provider Active Start: April 19, 2024 End: April 19, 2024 SUZETTE Cavazos Attending Provider Active Star t: April 19, 2024 End: April 19, 2024 Team Status: Inactive Member Role Status Dates Dr. Desiree Tapia MD Primary Care Provider Active Start: June 28, 2024 End: June 28, 2024 Dr. Desiree Tapia MD Referring Provider Active Start: June 28, 2024 End: June 28, 2024 Dr. Surendra Hidalgo MD Attending Provider Active Start: June 28, 2024 End: June 28, 2024 Team Status: Inactive Member Role Status Dates Dr. Desiree Tapia MD Primary Care Provider Active Start: June 28, 2024 End: June 28, 2024 Dr. Desiree Tapia MD Referring Provider Active Start: June 28, 2024 End: June 28, 2024 Miguel BRADFORD PA Attending Provider Active Start: June 28, 2024 End: June 28, 2024 Team Status: Active Member Role/Relationship Status Dates Dr. Desiree Tapia MD Primary Care Provider Active Team Status: Inactive Member Role/Relationship Status Dates Dr. Desiree Tapia MD Primary Care Provider Active Start: June 28, 2024 End: June 28, 2024 Dr. Desiree Tapia MD Referring Provider Active Start: June 28, 2024 End: June 28, 2024 Dr. Surendra Hidalgo MD Attending Provider Active Start: June 28, 2024 End: June 28, 2024 Team Status: Inactive Member Role/Relationship Status Dates Dr. Desiree Tapia MD Primary Care Provider Active Start: June 28, 2024 End: June 28, 2024 Dr. Desiree Tapia MD Referring Provider Active Start: June 28, 2024 End: June 28, 2024 Miguel BRADFORD PA Attending Provider Active Start: June 28, 2024 End: June 28, 2024 Team Status: Inactive Member Role/Relationship Status Dates Dr. Desiree Tapia MD Primary Care Provider Active Start: August 29, 2024 End: August 29, 2024 Dr. Surendra Hidalgo MD Attending Provider Active Start: August 29, 2024 End: August 29, 2024 Dr. Surendra Hidalgo MD Referring Provider Active Start: August 29, 2024 End: August 29, 2024 Team Status: Inactive Member Role/Relationship Status Dates Dr. Desiree Tapia MD Primary Care Provider Active Start: October 04, 2024 End: October 04, 2024 Dr. Desiree Tapia MD Attending Provider Active Start: October 04, 2024 End: October 04, 2024 Team Status: Inactive Member Role/Relationship Status Dates Dr. Desiree Tapia MD Primary Care Provider Active Start: October 21, 2024 End: October 21, 2024 Dr. Desiree Tapia MD Referring Provider Active Start: October 21, 2024 End: October 21, 2024 SUZETTE Carlson Attending Provider Active Start: October 21, 2024 End: October 21, 2024 Team Status: Active Member Role/Relationship Status Dates Dr. Desiree Tapia MD Primary Care Provider Active Start: October 21, 2024 SUZETTE Carlson Attending Provider Active Start: October 21, 2024 SUZETTE Carlson Referring Provider Active Start: October 21, 2024 Team Status: Inactive Member Role/Relationship Status Dates Dr. Desiree Tapia MD Primary Care Provider Active Start: October 25, 2024 End: October 25, 2024 Dr. Desiree Tapia MD Referring Provider Active Start: October 25, 2024 End: October 25, 2024 Dr. Moy Ramos DO Attending Provider Active Start: October 25, 2024 End: October 25, 2024 Team Status: Active Member Role/Relationship Status Dates Dr. Desiree Tapia MD Primary Care Provider Active Start: October 25, 2024 Dr. Desiree Tapia MD Referring Provider Active Start: October 25, 2024 Dr. Moy Ramos DO Attending Provider Active Start: October 25, 2024 Dr. Moy Ramos DO Other Provider Active St art: October 25, 2024 FOR RECORDS PERTAINING TO PATIENTS WHO ARE [...] BE BASED ON THE PRIMARY CLINICAL RECORDS. [employer] provides no warranty or guarantee of the accuracy or completeness of information in this document.
== END 2024-10-25 14:52 | disposition home or self-care (01) ==
LOC: EN 11:58 → AC 11:59
PROVIDERS: PCP Family Medicine; Referring Provider Family Medicine; Visit Provider Internal Medicine Gastroenterology
PROC: 0DJ08ZZ Inspection of Upper Intestinal Tract, Via Natural or Artificial Opening Endoscopic (ICD-10-PCS; CPT 43235; principal; 2024-10-25 12:55)
DX: R13.10 Dysphagia, unspecified (principal); Z79.4 Long term (current) use of insulin; E11.9 Type 2 diabetes mellitus without complications; D50.0 Iron deficiency anemia secondary to blood loss (chronic); Z79.82 Long term (current) use of aspirin; E78.00 Pure hypercholesterolemia, unspecified; I10 Essential (primary) hypertension; K21.9 Gastro-esophageal reflux disease without esophagitis; Z79.84 Long term (current) use of oral hypoglycemic drugs; Z79.899 Other long term (current) drug therapy; Z98.41 Cataract extraction status, right eye; Z98.42 Cataract extraction status, left eye; K31.811 Angiodysplasia of stomach and duodenum with bleeding
CPT/HCPCS: 44366; C1889; J2405

== ENCOUNTER → 2024-11-22 | Outpatient (CLI) | payer MEDICARE, SELFPAY ==
--- NOTE | 2024-11-22 12:53 | CDU_ITS ---
Reason For Study Reason For Study: R ICA Stenosis Rt. Velocities/BP Lt. Velocities/BP Prox CCA 91.9/4.2 cm/sec. Prox CCA 124.7/17.0 cm/sec. Mid CCA 70.4/12.6 cm/sec. Mid CCA 108.3/22.5 cm/sec. Dist CCA 69.1/9.0 cm/sec. Dist CCA 84.6/13.3 cm/sec. Prox ICA 175.7/32.8 cm/sec. Prox ICA 149.9/24.8 cm/sec. Mid ICA 205.3/30.8 cm/sec. Mid ICA 145.5/22.6 cm/sec. Dist ICA 101.6/11.6 cm/sec. Dist ICA 141.2/16.0 cm/sec. Rt. ICA/CCA = 2.9. Lt. ICA/CCA = 1.3. Prox ECA 156.6/9.7 cm/sec. Prox ECA 122.9/0.0 cm/sec. Rt. Vert. 43.3/7.7 cm/sec. Lt. Vert. 70.9/13.8 cm/sec. Right Extracranial There is homogeneous, smooth atherosclerotic plaque noted in the right common carotid artery. There is heterogeneous, irregular atherosclerotic plaque noted in the right internal carotid artery. There is intimal thickening but no significant atherosclerotic plaque noted in the right external carotid artery. Antegrade flow is noted in the right vertebral artery. Left Extracranial There is heterogeneous, irregular atherosclerotic plaque noted in the left common carotid artery. There is heterogeneous, irregular atherosclerotic plaque noted in the left internal carotid artery. There is heterogeneous, irregular atherosclerotic plaque noted in the left external carotid artery. Antegrade flow is noted in the left vertebral artery. Procedure Carotid Duplex 54534. This is a Carotid Duplex examination using B-mode, color flow and specral Doppler. Exam performed in department. VL/Carotid Duplex Ultrasound Interpretation Summary Moderate (50-69%) stenosis right extracranial internal carotid. Moderate (50-69%) stenosis left extracranial internal carotid. Patent and antegrade vertebrals bilaterally. Ordering Physician: Haley Menard Referring Physician: Desiree Tapia MD Performed By: Luna Ronquillo RVT
== END | disposition home or self-care (01) ==
LOC: CVS 12:52
PROVIDERS: PCP Family Medicine; Referring Provider Physician Assistant; Visit Provider Physician Assistant
DX: I65.23 Occlusion and stenosis of bilateral carotid arteries (principal)
CPT/HCPCS: 93880

== ENCOUNTER → 2024-11-25 | Outpatient (CLI) | payer MEDICARE, SELFPAY ==
--- NOTE | 2024-11-25 08:02 | US_ITS ---
PROCEDURE: ABD LIMITED W/ ELASTOGRAPHY REASON FOR EXAM: FATTY LIVER COMPARISON: Prior study dated April 08, 2022. TECHNIQUE: Procedure Code: [id number] Modality: US Procedure: ABD LIMITED W/ ELASTOGRAPHY Right upper quadrant abdominal ultrasound. Elena ElastQ Imaging shear wave elastography for non-invasive assessment of liver tissue stiffness. Elena EPIQ Elite. FINDINGS: LIVER: Size: Unremarkable Length: 14.3 cm Echotexture: Diffusely echogenic suggesting fatty infiltration Contour: Normal Lesions: None identified Elastography: EQI Med: 27.1 kPa EQI Med Nazario: 3 m/s IQR/Med: 14.1 %* GALLBLADDER: Solitary gallstone measuring 7 mm x 8 mm x 7 mm. Complex cystic areas seen along the posterior wall of the gallbladder. This may represent tumefactive sludge. COMMON BILE DUCT: Dilated measuring up to 7.2 mm. . PANCREAS: Normal Visualized portions of the right kidney are unremarkable. Small amount of fluid in the right upper quadrant. US/ABD Limited w/ Elastography IMPRESSION: SEVERE HEPATIC FIBROSIS / CIRRHOSIS Fatty infiltration of the liver. Gallstone and complex cystic area along the posterior wall of the gallbladder. Reference Values: SRU <1.37 m/s (5.7kPa): No to mild fibrosis 1.37 m/s - 2.2 m/s: Moderate to severe fibrosis >2.2 m/s (15kPa): Significant fibrosis / cirrhosis METAVIR Score F2 or higher: 1.34 m/s (5.7kPa) F3 or higher: 1.55 m/s (7.3kPa) F4: 1.80 m/s (10kPa) * If the IQR/Med is >30%, the variance in the measurements is a large and the a ccuracy of the measurement may be in question. Reading Location: [place] [id number]
--- OUTSIDE RECORDS SUMMARY | 2024-11-25 08:09 | XMS RPT_ITS | CCD ---
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 Desiree Tapia Primary Care Provider Dr. Kodak Duckworth Emergency Provider Dr. Arya Bartlett Admit Provider Dr. Arya Bartlett Attending Provider Dr. Arya Bartlett Other Provider Dr. Abdi Lee Attending Provider [phone] DESIREE TAPIA Attending Unavailable DESIREE TAPIA Primary Care Unavailable DESIREE TAPIA Referring Unavailable Dr. Desiree Tapia Primary Care Provider [phone] Dr. Desiree Tapia Referring Provider [phone] Surendra Hidalgo Attending Provider [phone] Dr. Arya Argueta Attending Provider [phone] Desiree Tapia Primary Care Provider [phone] Dr. Desiree Tapia Referring Provider [phone] Dr. Surendra Hidalgo Attending Provider [phone] Dr. Arya Argueta Attending Provider [phone] Surendra Hidalgo Referring Provider [phone] Dr. Surendra Hidalgo Other Provider Dr. Yadira Estrada Attending Provider SUZETTE Beach Attending Provider Dr. Desiree Tapia Primary Care Provider Dr. Desiree Tapia Referring Provider Dr. Surendra Hidalgo Attending Provider Dr. Desiree Tapia Primary Care Provider [phone] Desiree Tapia Referring Provider Dr. Surendra Hidalgo Attending Provider Dr. Arya Argueta Attending Provider [phone] Desiree Tapia MD Primary Care Provider Regina ANDERSON, Dr. Ramírez Referring Provider [phone] Moy Ramos DO Attending Provider Richard BAILEY, Dr. Winter Other Provider [phone] Dr. Desiree Tapia MD Attending Provider [phone] Dr. uSrendra Hidalgo MD Attending Provider Dr. Desiree Tapia MD Primary Care Provider Dr. Desiree Tapia MD Referring Provider [phone] Moy Ramos DO Attending Provider Dr. Moy Ramos DO Other Provider [phone] Regina ANDERSON, Dr. Ramírez Attending Provider [phone] Surendra Hidalgo MD Attending Provider Haley Lobato Attending Provider [phone] Haley Lobato Referring Provider [phone] Arya Argueta MD Attending Provider [phone] Regina ANDERSON, Dr. Ramírez Primary Care Provider Dr. Desiree Tapia MD Referring Provider Regina ANDERSON, Dr. Ramírez Attending Provider Miguel Simon Attending Provider Regina ANDERSON, Dr. Ramírez Primary Care Provider Regina ANDERSON, Dr. Ramírez Referring Provider Rocky ANDERSON, Dr. Agosto Attending Provider Rocky ANDERSON, Dr. Agosto Referring Provider Regina ANDERSON, Dr. Ramírez Attending Provider Lesly Tuttle Attending Provider Lesly Tuttle Referring Provider Richard BAILEY, Dr. Winter Attending Provider Richard BAILEY, Dr. Winter Other Provider Regina ANDERSON, Dr. Ramírez Primary Care Physician Rocky ANDERSON, Dr. Agosto Attending Physician Regina ANDERSON, Dr. Ramírez Attending Physician Regina ANDERSON, Dr. Ramírez Referring Provider [phone] Lesly Tuttle Attending Physician Richard BAILEY, Dr. Winter Attending Physician Richard BAILEY, Dr. Winter Nurse Practitioner Miedel, Desiree Primary Care Unavailable Miedel, Desiree Referring Unavailable Moy Ramos Attending Unavailable Miedel, Desiree Primary Care Unavailable Haley Menard Referring Unavailable Haley Menard Attending Unavailable Miedel, Desiree Referring Unavailable Lesly Hardwick Attending Unavailable Miedel, Desiree Primary Care Unavailable Miedel, Desiree Primary Care Unavailable Miedel, Desiree Referring Unavailable Surendra Hidalgo Attending Unavailable Miedel, Desiree Primary Care Unavailable Miedel, Desiree Referring Unavailable Miedel, Desiree Attending Unavailable Miedel, Desiree Primary Care Unavailable Miedel, Desiree Attending Unavailable Miedel, Desiree Primary Care Unavailable Miedel, Desiree Attending Unavailable Miedel, Desiree Primary Care Unavailable Lesly Hardwick Referring Unavailable Lesly Hardwick Attending Unavailable Miedel, Desiree Referring Unavailable Miedel, Desiree Primary Care Unavailable Menard Haley Attending Unavailable Miedel, Desiree Primary Care Unavailable Miedel, Desiree Referring Unavailable Friend, Moy Attending Unavailable Friend, Moy Consulting Unavailable Friend, Moy Attending Unavailable Miedel, Desiree Primary Care Unavailable Miedel, Desiree Referring Unavailable Friend, Moy Attending Unavailable Miedel, Desiree Primary Care Unavailable Friend, Moy Referring Unavailable Menard, Haley Referring Unavailable Menard, Haley Attending Unavailable Miedel, Desiree Primary Care Unavailable Miedel, Desiree Referring Unavailable Miedel, Desiree Primary Care Unavailable Surendra Hidalgo Attending Unavailable Miedel, Desiree Primary Care Unavailable Miedel, Desiree Referring Unavailable Miguel Simon Attending Unavailable Miedel, Desiree Primary Care Unavailable Miedel, Desiree Referring Unavailable Lesly Hardwick Attending Unavailable Friend, Moy Attending Unavailable Miedel, Desiree Referring Unavailable Miedel, Desiree Primary Care Unavailable Arya Argueta Attending Unavailable Miedel, Desiree Primary Care Unavailable Arya Argueta Attending Unavailable Miedel, Desiree Primary Care Unavailable Menard Haley Referring Unavailable Friend, Moy Attending Unavailable Miedel, Desiree Referring Unavailable Miedel, Desiree Primary Care Unavailable Friend, Moy Consulting Unavailable Miedel, Desiree Primary Care Unavailable Surendra Hidalgo Referring Unavailable Surendra Hidalgo Attending Unavailable Allergies Allergy Classification Reported Allergen(s) Allergy Type Date of Onset Reaction(s) Facility (19 sources) Adhesive Tape; Translations: [adhesive tape] Propensity to adverse reactions 2 [facility] (19 sources) Sulfonamides (Antibiotic); Translations: [Sulfa (Sulfonamide Antibiotics)] Allergy to substance 2 Hives [facility] (10 sources) Latex Propensity to adverse reactions 5 skin reaction [facility] (1 source) Latex Drug allergy (disorder) 5 [facility] Repository Medications Current Medications Medication Drug Class(es) Dates Sig (Normalized) Sig (Original) amLODIPine 10 mg oral tablet (20 sources) Dihydropyridine Calcium Channel Hayden Start: 12-31-2023 take 1 tablet by mouth once daily Start: 02-20-2022 End: 12-31-2023 take 2 tablets [...] Aggregation Inhibitor, Nonsteroidal Anti-inflammatory Drug Start: 10-21-2024 Start: 08-19-2023 End: 10-21-2024 Aspirin (Adult Low [...] 2018 12:00am September 10, 2021 1:27pm heart [facility] atorvastatin 40 mg oral tablet (17 sources) HMG-CoA Reductase Inhibitor Start: 09-10-2021 take 1 tablet by mouth at bedtime ferrous fumarate 324 mg oral tablet (3 sources) Start: 10-21-2024 take 1 tablet by mouth once daily gabapentin 100 mg oral capsule (20 sources) Anti-epileptic Agent Start: 08-14-2024 End: 10-21-2024 take 1 capsule by mouth every other day Start: 12-31-2023 End: 03-22-2024 take 1 capsule [...] Sulfonylurea Start: 08-05-2023 take 1 tablet by narendra th once daily Start: 08-18-2018 End: 08-05-2023 take 1 tablet by mouth twice daily Glipizide 5 MG tablet Discontinued 5 mg PO TWICE A DAY August 18, 2018 12:00am August 05, 2023 10:37am diabetes 3 ml insulin glargine 100 un t/ml pen injector (20 sources) Insulin Analog Start: 04-19-2024 Start: 08-05-2023 End: 04-19-2024 Insulin Glargine (Lantus [...] 2022 10:19am ketoconazole 20 mg/ml medicated shampoo (10 sources) Azole Antifungal Start: 08-05-2023 losartan potassium 100 mg oral tablet (13 sources) Angiotensin 2 Receptor Hayden Start: 2022 take 1 tablet by mouth once daily metFORMIN hydrochloride 500 mg oral tablet (20 sources) Biguanide Start: 08-05-2023 take 1 tablet by mouth twice daily Start: 08-18-2018 End: 08-05-2023 take 2 tablets [...] per patient preference Miscellaneous Medical Supply misc (10 sources) Start: 07-17-2022 Miscellaneous Medical Supply misc Active 0 .Route 2 1 July 17, 2022 12:00am 15-20mmHg knee-high measured compression stockings to be worn as directed; open or closed toe per patient preference Start: 07-17-2022 Miscellaneous Medical Supply misc Active 0 .Route 2 July 17, 2022 12:00am 15-20mmHg knee-high measured compression stockings to be worn as directed; open or closed toe per patient preference Start: 07-17-2022 Miscellaneous Medical Supply misc Active 0 .Route 2 July 16, 2022 11:00pm 15-20mmHg knee-high measured compression stockings to be worn as directed; open or closed toe per patient preference omeprazole 40 mg delayed release oral capsule (12 sources) Proton Pump Inhibitor Start: 01-04-2024 End: 11-02-2024 take 1 capsule by mouth twice daily Completed/Discontinued Medications Medication Drug Class(es) Dates Sig (Normalized) Sig (Original) acetaminophen 500 mg oral tablet (10 sources) Start: 08-19-2023 End: 04-19-2024 take 2 tablets by mouth every six hours as needed for pain Acetaminophen (Tylenol Extra Strength) 500 mg tablet Discontinued 1000 mg PO EVERY 6 HOURS as needed for pain August 19, 2023 12:00am April 19, 2024 1:10pm ascorbic acid 500 mg oral capsule (10 sources) Vitamin C Start: 09-29-2023 End: 03-22-2024 take 1 capsule by mouth once daily Ascorbic Acid (Vitamin C) 500 mg capsule Discontinued 500 mg PO DAILY September 29, 2023 12:00am March 22, 2024 6:58pm clopidogrel 75 mg oral tablet (17 sources) P2Y12 Platelet Inhibitor Start: 09-10-2021 End: 02-20-2022 take 1 tablet by mouth once daily Clopidogrel 75 mg Tablet Discontinued 75 mg PO DAILY 30 0 September 10, 2021 12:00am February 20, 2022 11:19am cyclobenzaprine hydrochloride 10 mg oral tablet (10 sources) Muscle Relaxant Start: 08-05-2023 End: 08-19-2023 take 1 tablet by mouth at bedtime as needed Cyclobenzaprine 10 mg tablet Discontinued 10 mg PO BEDTIME as needed August 05, 2023 12:00am August 19, 2023 3:22pm diclofenac sodium 0.01 mg/mg topical gel (10 sources) Nonsteroidal Anti-inflammatory Drug Start: 08-19-2023 End: 12-31-2023 Diclofenac Sodium (Arthritis Pain (Diclofenac)) 1 % gel Discontinued 2 g TOPICAL ONCE August 19, 2023 12:00am December 31, 2023 10:56am apply to single elbow, wrist or hand; for hand includes palm/fingers/back of hand ferrous sulfate 325 mg oral tablet (10 sources) Start: 09-29-2023 End: 03-22-2024 take 1 tablet by mouth once daily Ferrous Sulfate 325 mg (65 mg iron) tablet Discontinued 325 mg PO DAILY September 29, 2023 12:00am March 22, 2024 6:58pm 3 ml insulin lispro 100 unt/ml pen injector (18 sources) Insulin Analog Start: 08-18-2018 End: 2022 [...] 2023 3:19pm lisinopril 40 mg oral tablet (18 sources) Angiotensin Converting Enzyme Inhibitor Start: 08-18-2018 End: 2022 take 1 tablet by mouth at bedtime Lisinopril 40 MG tablet Discontinued 40 mg PO AT BEDTIME August 18, 2018 12:00am 2022 10:10am htn sucralfate 1000 mg oral tablet (10 sources) Aluminum Complex Start: 01-20-2024 End: 03-16-2024 take 1 tablet by mouth twice daily Sucralfate (Carafate) 1 gram tablet Discontinued 1 g PO TWICE A DAY 112 56 0 January 20, 2024 1:00am March 15, 2024 1:00am March 16, 2024 1:10am vitamin b12 1 mg oral capsule (10 sources) Vitamin B12 Start: 09-29-2023 End: 04-19-2024 take 1 capsule by mouth once daily Cyanocobalamin (Vitamin B-12) 1,000 mcg capsule Discontinued 1000 ug PO DAILY September 29, 2023 12:00am April 19, 2024 1:10pm Problems Active Problems Problem Classification Problem Date Documented Da te Episodic/Chronic Acute cerebrovascular disease (18 sources) Other cerebral infarction due to occlusion or stenosis of small artery; Translations: [Cerebrovascular accident (CVA) of right thalamus] Chronic Chronic kidney disease (10 sources) Chronic renal failure; Translations: [Chronic kidney disease, unspecified] 08-19-2023 Chronic Conditions associated with dizziness or vertigo (20 sources) Loss of equilibrium; Translations: [Dizziness and giddiness] Episodic Deficiency and other anemia (10 sources) Pancytopenia; Translations: [Other pancytopenia] 08-19-2023 Chronic Deficiency and other anemia (1 source) Iron deficiency anemia secondary to blood loss (chronic); Translations: [Iron deficiency anemia secondary to blood loss (chronic)] Onset: Chronic Deficiency and other anemia (13 sources) Anemia; Translations: [Anemia, unspecified] 08-05-2023 Episodic Deficiency and other anemia (14 sources) Iron deficiency anemia; Translations: [Iron deficiency anemia, unspecified] 08-19-2023 Episodic Deficiency and other anemia (2 sources) Anemia, unspecified; Translations: [Anemia, unspecified] Onset: Episodic Diabetes mellitus with complications (11 sources) 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; Translations: [Retinopathy due to diabetes mellitus] Onset: 8 08-05-2023 Chronic Diabetes mellitus without complication (18 sources) Diabetes mellitus; Translations: [Type 2 diabetes mellitus without complications] Chronic Hypertension with complications and secondary hypertension (1 source) Hypertensive chronic kidney disease with stage 1 through stage 4 chronic kidney disease, or unspecified chronic kidney disease; Translations: [Hypertensive chronic kidney disease with stage 1 through stage 4 chronic kidney disease, or unspecified chronic kidney disease] Onset: Chronic Malaise and fatigue (20 sources) Asthenia; Translations: [Weakness] Episodic Occlusion or stenosis of precerebral arteries (17 sources) Carotid artery stenosis; Translations: [Occlusion and stenosis of unspecified carotid artery] 2022 Chronic Other and ill-defined cerebrovascular disease (16 sources) Cerebellar stroke syndrome; Translations: [Cerebellar stroke syndrome] 02-20-2022 Chronic Other and ill-defined cerebrovascular disease (20 sources) Cerebrovascular disease; Translations: [Cerebrovascular disease, unspecified] 02-20-2022 Chronic Other and ill-defined cerebrovascular disease (5 sources) Cerebrovascular disease, unspecified; Translations: [Unspecified cerebrovascular disease] 02-20-2022 Chronic Other circulatory disease (15 sources) Foot pulse absent; Translations: [Other specified symptoms and signs involving the circulatory and respiratory systems] 02-20-2022 Episodic Other circulatory disease (15 sources) Carotid bruit; Translations: [Other specified symptoms and signs involving the circulatory and respiratory systems] 02-20-2022 Episodic Other S[employer]IOR [employer] SPECIALIST infection and poliomyelitis (20 sources) Post poliomyelitis syndrome; 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] Onset: 5 02-20-2022 Chronic Other connective tissue disease (13 sources) Foot pain; Translations: [Pain in right foot] 02-20-2022 Episodic Other connective tissue disease (3 sources) Pain in right foot; Translations: [Pain in limb] 02-20-2022 Episodic Other connective tissue disease (2 sources) Pain in both feet; Translations: [Pain in right foot] 02-20-2022 Episodic Other ear and sense organ disorders (8 sources) Impacted cerumen; Translations: [Impacted cerumen, right ear] 06-28-2024 Episodic Other ear and sense organ disorders (2 sources) Impacted cerumen in right ear; Translations: [Impacted cerumen, right ear] 10-21-2024 Episodic Other gastrointestinal disorders (19 sources) Dysphagia; Translations: [Dysphagia, unspecified] 11-18-2023 Episodic Other gastrointestinal disorders (2 sources) Dysphagia, unspecified; Translations: [Dysphagia, unspecified] Onset: 5 Episodic Other inflammatory condition of skin (17 sources) Rosacea; Translations: [Rosacea, unspecified] 09-18-2021 Chronic Other inflammatory condition of skin (1 source) Rosacea, unspecified; Translations: [Rosacea] Chronic Other liver diseases (1 source) Fatty (change of) liver, not elsewhere classified; Translations: [Fatty (change of) liver, not elsewhere classified] Onset: 5 Chronic Other nervous system disorders (20 sources) Polyneuropathy; Translations: [Polyneuropathy, unspecified] 02-20-2022 Chronic Other nervous system disorders (5 sources) Polyneuropathy, unspecified; Translations: [Unspecified hereditary and idiopathic peripheral neuropathy] 02-20-2022 Chronic Other nervous system disorders (18 sources) Ataxia; Translations: [Ataxia, unspecified] 09-18-2021 Episodic Other nervous system disorders (2 sources) Ataxia, unspecified; Translations: [Lack of coordination] Episodic Other non-traumatic joint disorders (15 sources) Ankle pain; Translations: [Pain in right ankle and joints of right foot] 02-20-2022 Episodic Other non-traumatic joint disorders (3 sources) Pain in right ankle and joints of right foot; Translations: [Pain in joint, ankle and foot] 02-20-2022 Episodic Other screening for suspected conditions (not mental disorders or infectious disease) (16 sources) Electrocardiogram abnormal; Translations: [Abnormal electrocardiogram [ECG] [EKG]] 09-27-2021 Episodic Peripheral and visceral atherosclerosis (18 sources) Peripheral vascular disease, unspecified; Translations: [Peripheral arterial disease] 03-20-2022 Chronic Residual codes; unclassified (12 sources) Hypersomnia; Translations: [Hypersomnia, unspecified] 10-30-2022 Chronic [...] abnormal findings in urine] Onset: 02-11-2024 Episodic Other circulatory disease (7 sources) Other specified symptoms and signs involving the circulatory and respiratory systems; Translations: [Other symptoms involving cardiovascular system] Onset: 04-28-2024 02-20-2022 Episodic Results Test Name Value Interpretation Reference Range Facility Carotid Duplex Ultrasoundon 11-22-2024 Carotid Duplex Ultrasound [facility] [place] [address] Carotid Duplex Ultrasound 11/22/24 1317 MR#: [id number] Acct: [id number] Name: SANDIE ANGELES Rep #: [id number] : 1945 79 From: Arya Argueta MD Attending Dr: SUZETTE Cavazos Status: REG CLI Ordering Dr: Haley Menard Date: 11/22/24 Location: [facility] Sex: F C Admitted: Reason For Study Reason For Study: R ICA Stenosis Rt. Velocities/BP Lt. Velocities/BP Prox CCA 91.9/4.2 cm/sec. Prox CCA 124.7/17.0 cm/sec. Mid CCA 70.4/12.6 cm/sec. Mid CCA 108.3/22.5 cm/sec. Dist CCA 69.1/9.0 cm/sec. Dist CCA 84.6/13.3 cm/sec. Prox ICA 175.7/32.8 cm/sec. Prox ICA 149.9/24.8 cm/sec. Mid ICA 205.3/30.8 cm/sec. Mid ICA 145.5/22.6 cm/sec. Dist ICA 101.6/11.6 cm/sec. Dist ICA 141.2/16.0 cm/sec. Rt. ICA/CCA = 2.9. Lt. ICA/CCA = 1.3. Prox ECA 156.6/9.7 cm/sec. Prox ECA 122.9/0.0 cm/sec. Rt. Vert. 43.3/7.7 cm/sec. Lt. Vert. 70.9/13.8 cm/sec. Right Extracranial There is homogeneous, smooth atherosclerotic plaque noted in the right common carotid artery. There is heterogeneous, irregular atherosclerotic plaque noted in the right internal carotid artery. There is intimal thickening but no significant atherosclerotic plaque noted in the right external carotid artery. Antegrade flow is noted in the right vertebral artery. Left Extracranial There is heterogeneous, irregular atherosclerotic plaque noted in the left common carotid artery. There is heterogeneous, irregular atherosclerotic plaque noted in the left internal carotid artery. There is heterogeneous, irregular atherosclerotic plaque noted in the left external carotid artery. Antegrade flow is noted in the left vertebral artery. Procedure Carotid Duplex 70204. This is a Carotid Duplex examination using B-mode, color flow and specral Doppler. Exam performed in department. VL/Carotid Duplex Ultrasound Interpretation Summary Moderate (50-69%) stenosis right extracranial internal carotid. Moderate (50-69%) stenosis left extracranial internal carotid. Patent and antegrade vertebrals bilaterally. Ordering Physician: Haley Menard Referring Physician: Desiree Tapia MD Performed By: Luna Ronquillo RVT 11/23/24 1011 Date Arya Argueta MD CC: SUZETTE Cavazos; Dr. Desiree Tapia MD Date Dictated: 11/22/24 1317 Date Transcribed: 11/23/24 1011 Local Combination Truck Driver: Signed [facility] Office Visit Reporton 2024 Office Visit Report [facility] [address] [place] [address] OFFICE VISIT Date of Service: 11/03/24 MR#: [id number] Acct: [id number] Patient: SANDIE ANGELES Rep #: [id number] : 1945 Provider: Moy Ramos DO Age/Sex: 79/F Location: [facility] Status: Signed Intake Vital Signs 10/25/24 12:27 Height 5 ft 1 in Intake Visit Reasons: Cap Endo Chief Complaint: Anemia Allergies Sulfa (Sulfonamide Antibiotics) Allergy (Unknown, Verified 10/25/24 12:26) Hives adhesive tape Adverse Reaction (Intermediate, Verified 10/25/24 12:26) Rash latex Adverse Reaction (Verified 10/25/24 12:) skin reaction Have you fallen in the past year?: No Office Procedures Procedure Administration Route: PO Administration Location: [facility] Dispensed Units: 1 Capsule Lot Number: [id number] Expiration Date: 08/18/25 Capsule ID Number: [id number] Consent Form Signed: Yes Comments: Tolerated well. Reviewed instructions. Clinical Quality Measures Falls Risk Screening/Assistive Devices Have you fallen in the past year?: No 11/03/24 1036 Date Moy Pablo Signature: Date (if applicable) CC: Normal [facility] EGD Reporton 10-25-2024 EGD Report [facility] Medical Records Department [address] [place] [address] EGD Report MR#: [id number] Acct: [id number] Name: SANDIE ANGELES DAWSON Rep #: [id number] : 1945 79 From: Moy Ramos DO PCP: Dr. Desiree Tapia MD Status:[facility] Patient Name: Sandie Angeles Procedure Date: 10/25/2024 1:23 PM Date of [...] present medications. Procedure Code(s): --- Professional --- 91871, Small intestinal endoscopy, enteroscopy beyond second portion of duodenum, not including ileum; with control of bleeding (eg, injection, bipolar cautery, unipolar cautery, laser, heater probe, stapler, plasma quality assurance specialist) CPT copyright 2021 [employer]. All rights reserved. The codes documented in this report are preliminary and upon orthopedic coder review may be revised to meet current compliance requirements. Moy Ramos DO 10/25/2024 1:53:07 PM This report has been signed electronically. Number of Addenda: 0 Note Initiated On: 10/25/2024 1:23 PM 10/25/24 1353 Date Moy Priceignbilly Signature: Date (if indicated) CC: Dr. Desiree Tapia MD; Moy Ramos DO Date Dictated: 10/25/24 1323 Date Transcribed: Local Combination Truck Driver: RF Signed [facility] MR/OP.PROVATon 10-25-2024 MR/OP.[facility] Medical Records Department [address] [place] [id number] Provation Physician Letter MR#: [id number] Acct: [id number] Name: SANDIE ANGELES DAWSON Rep #: [id number] : 1945 79 From: Moy Ramos DO PCP: Dr. Desiree Tapia MD Status:REG [facility] 10/25/2024 Desiree Tapia [address] [place] [address] Re : Upper GI endoscopy procedure for Sandie Angeles Dear Dr. Tapia This procedure was performed [...] This report has been signed electronically. 10/25/24 135 Date Moy Ramos DO Cosion Signature: Date (if indicated) CC: Dr. Desiree Tapia MD; Moy Ramos DO Date Dictated: 10/25/24 1323 Date Transcribed: Local Combination Truck Driver: RF Signed [facility] MR/POSTOP.[facility] 10-25-2024 MR/POSTOP.[facility] Medical Records Department [address] [place] [address] Anesthesia Postop Eval I 10/25/24 135 MR#: [id number] Acct: [id number] Name: SANDIE ANGELES DAWSON Rep #: [id number] : 1945 79 From: Stanislav Altamirano PCP: Dr. Desiree Tapia MD Status:REG SDC Y Race: C Location: [place] [address] Anesthesia: Postop Eval I Current Vital Signs [...] Anesthesia document: Postop Eval 1 completed: Yes 10/25/241352 Date Stanislav Jonesignbilly Signature: Date CC: Signed Normal [facility] MR/ORCSYEGV0ji 10-25-2024 MR/POSTOPAN2 [facility] Medical Records Department [address] [place] [address] Anesthesia Postop Eval II 10/25/24 1507 MR#: [id number] Acct: [id number] Name: SANDIE ANGELES DAWSON Rep #: [id number] : 1945 79 From: Margarita Gonzalez CRNA PCP: Dr. Desiree Tapia MD Status:DEP [facility] Y Race: C Location: EN Anesthesia Postop Eval I Sum Postop Eval Completion status Anesthesia document: Postop Eval 1 completed: Yes Anesthesia Postop Eval I Summary Anesthesia Postop Eval I Summary: Anesthesia Postop Eval I: Assessment Summary Airway patent Yes 10/25/24 13:53 [email or web address] Spontaneous unlabored Yes 10/25/24 13:53 [email or web address] respirations Mental status Awake,Calm 10/25/24 13:53 [email or web address] nausea No 10/25/24 13:53 [email or web address] Vomiting No 10/25/24 13:53 [email or web address] Anesthesia Postop Eval I: Fluid Summary Crystalloid volume administer 300 10/25/24 13:53 [email or web address] (ml) Colloids volume administered ( ml) Blood Product volume administered (ml) Total IV fluid infused 300 10/25/24 13:53 [email or web address] Anesthesia Postop Eval I: Summary Notes Anesthesia Complication No 10/25/24 13:53 [email or web address] Anesthesia Complication Comment: Post-operative progress note Anesthesia: Postop Eval II Evaluation Mental status: Awake and Calm Pain Level: 0 nausea: No Vomiting: No Complications Anesthesia Complication: No 10/25/24 1508 Date Margarita Gonzalez GRAPHIC DESIGN INTERN Cosigner Signature: Date CC: Signed Normal [facility] Absolute lymphocyte countOrd ered By: Lesly Hardwick on 10-21-2024 Lymphocytes Auto (Unsp spec) [#/Vol] 0.57 10*3/uL Low 0.83-4.51 [facility] Absolute neutrophil countOrd ered By: Lesly Hardwick on 10-21-2024 Neutrophils (Bld) [#/Vol] 3.1 10*3/uL 2.0-7.7 [facility] Anion gap in Serum or Plasma Ordered By: Lesly Hardwick on 10-21-2024 Anion gap [Moles/Vol] 15 mmol/L 5-15 [facility] Automated lymphocyte count a s percentage of total leukocytesOrdered By: Lesly Hardwick on 10-21-2024 Lymphocytes/100 WBC Auto (Unsp spec) 13.5 % Low 19-41 [facility] BUN/creatinine ratioOrdered By: Lesly Hardwick on 10-21-2024 Urea nitrogen/Creatinine [Mass ratio] 15.6 mg/mg 10- [facility] Basophil percentageOrdered B y: Lesly Hardwick on 10-21-2024 Basophils/100 WBC (Bld) 0.9 % 0-1 [facility] Bilirubin, totalOrdered By: Lesly Hardwick on 10-21-2024 Bilirubin [Mass/Vol] 0.58 mg/dL 0.00-1.30 [facility] CBC W/Diff, Automatedon 10-10 Absolute Lymph 0.57 X10 3/uL Low 0.83-4.51 [facility] Comment on above: Performed By: #### L 100.0100, L500.4050 #### [facility] [address] [place], [address] Absolute Neut 3.1 X10 3/uL Normal 2.0-7.7 [facility] Comment on above: Performed By: #### L 100.0100, L500.4050 #### [facility] [address] [place], [address] Basophils/100 WBC (Bld) 0.9 % Normal 0-1 [facility] Comment on above: Performed By: #### L 100.0100, L500.4050 #### [facility] [address] [place], [address] Eosinophils/100 WBC (Bld) 3.1 % Normal 0-5 [facility] Comment on above: Performed By: #### L 100.0100, L500.4050 #### [facility] [address] [place], [address] Erythrocyte distribution width (RBC) [Ratio] 17.2 % High 11.6-14.6 [facility] Comment on above: Performed By: #### L 100.0100, L500.4050 #### [facility] [address] [place], [address] Hematocrit (Bld) [Volume fraction] 26.7 % Low 37-47 [facility] Comment on above: Performed By: #### L 100.0100, L500.4050 #### [facility] [address] [place], [address] Hemoglobin (Bld) [Mass/Vol] 8.1 g/dL Low 12.0-15.0 [facility] Comment on above: Performed By: #### L 100.0100, L500.4050 #### [facility] [address] [place], [address] IG% 0.500 Normal 0.0-0.9 [facility] Comment on above: Result Comment: IG% - Immature Granulocytes (promyelocytes, myelocytes and metamyelocytes) > 1% indicates that a LEFT SHIFT is Present. Performed By: #### L 100.0100, L500.4050 #### [facility] [address] [place], [address] Lymphocytes/100 WBC (Bld) 13.5 % Low 19-41 [facility] Comment on above: Performed By: #### L 100.0100, L500.4050 #### [facility] [address] [place], [address] MCH (RBC) [Entitic mass] 25.4 pg Low 27.0-32.0 [facility] Comment on above: Performed By: #### L 100.0100, L500.4050 #### [facility] [address] [place], [address] MCHC (RBC) [Mass/Vol] 30.3 g/dL Low 32-36 [facility] Comment on above: Performed By: #### L 100.0100, L500.4050 #### [facility] [address] [place], [address] MCV (RBC) [Entitic vol] 83.7 fL Normal 81-99 [facility] Comment on above: Performed By: #### L 100.0100, L500.4050 #### [facility] [address] [place], [address] Monocytes/100 WBC (Bld) 7.8 % Normal 0-10 [facility] Comment on above: Performed By: #### L 100.0100, L500.4050 #### [facility] [address] [place], [address] Neutrophils/100 WBC (Bld) 74.2 % High 47-70 [facility] Comment on above: Performed By: #### L 100.0100, L500.4050 #### [facility] [address] [place], [address] Nucleated RBC (Bld) [#/Vol] 0 10*3/uL Normal 0-5 [facility] Comment on above: Performed By: #### L 100.0100, L500.4050 #### [facility] [address] [place], [address] Platelet mean volume (Bld) [Entitic vol] 11.1 fL Normal 6.2-12.0 [facility] Comment on above: Performed By: #### L 100.0100, L500.4050 #### [facility] [address] [place], [address] Platelets (Bld) [#/Vol] 164 10*3/uL Normal 150-450 [facility] Comment on above: Performed By: #### L 100.0100, L500.4050 #### [facility] [address] [place], [address] RBC (Bld) [#/Vol] 3.19 10*6/uL Low 4.2-5.4 [facility] Comment on above: Performed By: #### L 100.0100, L500.4050 #### [facility] [address] [place], [address] RDW SD 51.8 fl High 35.1-43.9 [facility] Comment on above: Performed By: #### L 100.0100, L500.4050 #### [facility] [address] [place], [address] WBC (Bld) [#/Vol] 4.2 10*3/uL Low 4.4-11.0 [facility] Comment on above: Performed By: #### L 100.0100, L500.4050 #### [facility] [address] [place], [address] Carbon dioxide, total [Moles /volume] in Central venous bloodOrdered By: Lesly Hardwick on 10-21-2024 CO2 [Moles/Vol] 18.5 mmol/L Low 21.0-32.0 [facility] Chloride assayOrdered By: Alejandra Hardwick on 10-21-2024 Chloride [Moles/Vol] 107 mmol/L 98-108 [facility] Comprehensive Metabolic Prof ilon 10-21-2024 Albumin [Mass/Vol] 3.7 g/dL Normal 3.4-4.8 [facility] Comment on above: Performed By: #### L 100.0100, L500.4050 #### [facility] [address] [place], [address] Albumin/Globulin [Mass ratio] 1.0 {ratio} Normal 0.9-2.4 [facility] Comment on above: Performed By: #### L 100.0100, L500.4050 #### [facility] [address] [place], [address] ALK PHOS 97 U/L Normal 35-104 [facility] Comment on above: Performed By: #### L 100.0100, L500.4050 #### [facility] [address] [place], [address] ALT [Catalytic activity/Vol] 12 U/L Normal <=34 [facility] Comment on above: Performed By: #### L 100.0100, L500.4050 #### [facility] [address] [place], [address] AST [Catalytic activity/Vol] 28 U/L Normal <=31 [facility] Comment on above: Performed By: #### L 100.0100, L500.4050 #### [facility] [address] [place], [address] Bilirubin [Mass/Vol] 0.58 mg/dL Normal 0.00-1.30 [facility] Comment on above: Performed By: #### L 100.0100, L500.4050 #### [facility] [address] [place], [address] BUN/CRE 15.6 RATIO Normal 10-20 [facility] Comment on above: Performed By: #### L 100.0100, L500.4050 #### [facility] [address] [place], [address] Calcium [Mass/Vol] 8.4 mg/dL Normal 7.6-11.0 [facility] Comment on above: Performed By: #### L 100.0100, L500.4050 #### [facility] [address] [place], [address] Chloride [Moles/Vol] 107 mmol/L Normal 98-108 [facility] Comment on above: Performed By: #### L 100.0100, L500.4050 #### [facility] [address] [place], [address] CO2 [Moles/Vol] 18.5 mmol/L Low 21.0-32.0 [facility] Comment on above: Performed By: #### L 100.0100, L500.4050 #### [facility] [address] [place], [address] Creatinine [Mass/Vol] 1.35 mg/dL High 0.70-1.20 [facility] Comment on above: Performed By: #### L 100.0100, L500.4050 #### [facility] [address] [place], [address] GAP 15 Normal 5-15 [facility] Comment on above: Performed By: #### L 100.0100, L500.4050 #### [facility] [address] [place], [address] GFR/1.73 sq M.predicted among non-blacks MDRD (S/P/Bld) [Vol rate/Area] 39 mL/min/{1.73_m2} Low >60 [facility] Comment on above: Result Comment: mL/m in/1.73m2 CKD-EPI Creatinine Equation (2020) Performed By: #### L 100.0100, L500.4050 #### [facility] [address] [place], [address] Globulin (S) [Mass/Vol] 3.6 g/dL Normal 2.2-4.2 [facility] Comment on above: Performed By: #### L 100.0100, L500.4050 #### [facility] [address] [place], [address] Glucose [Mass/Vol] 170 mg/dL High 70-99 [facility] Comment on above: Performed By: #### L 100.0100, L500.4050 #### [facility] [address] [place], [address] Potassium [Moles/Vol] 3.9 mmol/L Normal 3.3-5.1 [facility] Comment on above: Performed By: #### L 100.0100, L500.4050 #### [facility] [address] [place], [address] Sodium [Moles/Vol] 141 mmol/L Normal 133-145 [facility] Comment on above: Performed By: #### L 100.0100, L500.4050 #### [facility] [address] [place], [address] T PROT 7.3 g/dL Normal 5.9-8.4 [facility] Comment on above: Performed By: #### L 100.0100, L500.4050 #### [facility] [address] [place], [address] Urea nitrogen [Mass/Vol] 21 mg/dL High 4-19 [facility] Comment on above: Performed By: #### L 100.0100, L500.4050 #### [facility] [address] [place], [address] Eosinophil percentageOrdered By: Lesly Hardwick on 10-21-2024 Eosinophils/100 WBC (Bld) 3.1 % 0-5 [facility] Erythrocyte distribution wid th ratioOrdered By: Lesly Hardwick on 10-21-2024 Erythrocyte distribution width (RBC) [Ratio] 17.2 % High 11.6-14.6 [facility] Erythrocyte distribution wid th standard deviationOrdered By: Lesly Hardwick on 10-21-2024 Erythrocyte distribution width (RBC) [Ratio] 51.8 fl High 35.1-43.9 [facility] Gastroenterology Visit Repor ton 10-21-2024 Gastroenterology Visit Report [facility] Gastroenterology [address] [place] [address] OFFICE VISIT Date of Service: 10/21/24 MR#: [id number] Acct: [id number] Name: SANDIE ANGELES DAWSON Rep #: [id number] : 1945 Provider: SUZETTE Carlson Age/Sex: 79/F Location: [facility] [place] Status: Signed Intake Vital Signs 06/28/24 14:04 [...] you fallen in the past year?: No [facility] Medical History (Updated 08/14/24 @ 18:47 by [...] in: other frequency: 1-2 times per week luna/scientologist: Mandaen seatbelt use: always HPI HPI Chief Complaint: Anemia Details: SANDIE ANGELES, is a 79 F who presents to [...] with swal (more content not included)... Normal [facility] Glomerular filtration rate ( GFR) estimation/1.73 sq m using serum, plasma, or whole bOrdered By: Lesly Hardwick on 10-21-2024 GFR/1.73 sq M.predicted among non-blacks MDRD (S/P/Bld) [Vol rate/Area] 39 mL/min/{1.73_m2} Low >60 [facility] Comment on above: mL/min/1.73m2 CKD-EP I Creatinine Equation (2020) Hematocrit Auto (Bld) [Volum e fraction]Ordered By: Lesly Hardwick on 10-21-2024 Hematocrit (Bld) [Volume fraction] 26.7 % Low 37-47 [facility] Hemoglobin measurementOrdere d By: Lesly Hardwick on 10-21-2024 Hemoglobin (Bld) [Mass/Vol] 8.1 g/dL Low 12.0-15.0 [facility] Immature granulocytes/100 WB C Auto (Bld)Ordered By: Lesly Hardwick on 10-21-2024 Immature granulocytes/100 WBC (Bld) 0.500 % 0.0-0.9 [facility] Comment on above: IG% - Immature Granu locytes (promyelocytes, myelocytes and metamyelocytes) > 1% indicates that a LEFT SHIFT is Present. Laboratory - Chemistry and C hemistry - challengeOrdered By: Lesly Hardwick on 10-21-2024 AST [Catalytic activity/Vol] 28 U/L <32 [facility] MCV (mean corpuscular volume ) determinationOrdered By: Lesly Hardwick on 10-21-2024 MCV (RBC) [Entitic vol] 83.7 fL 81-99 [facility] MR/PAT.ANEon 10-21-2024 MR/PAT.ANE [facility] Medical Records Department [address] [place] [address] PAT - Anesthesia 10/21/24 1228 MR#: [id number] Acct: [id number] Name: SANDIE ANGELES DAWSON Rep #: [id number] : 1945 79 From: Arya Dumont MD PCP: Dr. 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 History - target trimmer: Anesthesia History - target trimmer Hx Hospitalization No 10/21/24 11:31 Any Problems [...] take am of surgery PONV PONV - target trimmer: PONV - target trimmer Female Yes 10/21/24 11:31 HX of Motion [...] 06/28/24 14:04 Respiratory Assessment Respiratory Assessment - target trimmer: Respiratory Tract Infection Hx - target trimmer Hx Respiratory Tract Infection No 10/21/24 11:31 STOP Sleep Apnea STOP Sleep Apnea - target trimmer: STOP Sleep Apnea - target trimmer Hx Hypertension Yes: CONTROLLED WITH MED 10/21/24 [...] Tobacco Use History Tobacco Use History - target trimmer: Tobacco Use History - target trimmer Tobacco Use Non-smoker 09/10/21 10:00 Smoking Status Never smoker 10/21/24 11:31 Hx Tobacco Use No 10/21/24 11:31 Years Smoking Packs Smoked per Day Smoking Cessation Date was within the last 15 years Hx Smoking Cessation Date Hx Smoking Cessation No: patient doesn't smoke 10/21/24 11:31 Counseling Hematologic Medial History Hematologic Hx - target trimmer: 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 Normal [facility] Mean corpuscular hemoglobin (MCH) determinationOrdered By: Lesly Hardwick on 10-21-2024 MCH (RBC) [Entitic mass] 25.4 pg Low 27.0-32.0 [facility] Mean corpuscular hemoglobin concentration (MCHC) determinationOrdered By: Lesly Hardwick on 10-21-2024 MCHC (RBC) [Mass/Vol] 30.3 g/dL Low 32-36 [facility] Mean platelet volume determi nationOrdered By: Lesly Hardwick on 10-21-2024 Platelet mean volume (Bld) [Entitic vol] 11.1 fL 6.2-12.0 [facility] Monocyte percentageOrdered B y: Lesly Hardwick on 10-21-2024 Monocytes/100 WBC (Bld) 7.8 % 0-10 [facility] Neutrophil percentageOrdered By: Lesly Hardwick on 10-21-2024 Neutrophils/100 WBC (Bld) 74.2 % High 47-70 [facility] Nucleated red blood cell per centageOrdered By: Lesly Hardwick on 10-21-2024 Nucleated RBC/100 WBC (Bld) [Ratio] 0 % 0-5 [facility] Platelet countOrdered By: Alejandra Hardwick on 10-21-2024 Platelets (Bld) [#/Vol] 164 10*3/uL 150-450 [facility] Potassium measurement (mass/ volume)Ordered By: Lesly Hardwick on 10-21-2024 Potassium (Unsp spec) [Mass/Vol] 3.9 mmol/L 3.3-5.1 [facility] RBC Auto (Bld) [#/Vol]Ordere d By: Lesly Hardwick on 10-21-2024 RBC (Bld) [#/Vol] 3.19 10*6/uL Low 4.2-5.4 [facility] Serum creatinine measurement (mass/volume)Ordered By: Lesly Hardwick on 10-21-2024 Creatinine [Mass/Vol] 1.35 mg/dL High 0.70-1.20 [facility] Serum globulin measurementOr dered By: Lesly Hardwick on 10-21-2024 Globulin (S) [Mass/Vol] 3.6 g/dL 2.2-4.2 [facility] Serum glucose measurement (m ass/volume)Ordered By: Lesly Hardwick on 10-21-2024 Glucose [Mass/Vol] 170 mg/dL High 70-99 [facility] Serum or plasma alanine mao otransferase (ALT) measurementOrdered By: Lesly Hardwick on 10-21-2024 ALT [Catalytic activity/Vol] 12 U/L <35 [facility] Serum or plasma albumin nick urement (mass/volume)Ordered By: Lesly Hardwick on 10-21-2024 Albumin [Mass/Vol] 3.7 g/dL 3.4-4.8 [facility] Serum or plasma albumin/glob ulin mass ratioOrdered By: Lesly Hardwick on 10-21-2024 Albumin/Globulin [Mass ratio] 1.0 {ratio} 0.9-2.4 [facility] Serum or plasma alkaline kathleen sphatase measurementOrdered By: Lesly Hardwick on 10-21-2024 ALP [Catalytic activity/Vol] 97 U/L 35-104 [facility] Serum or plasma calcium nick urement (mass/volume)Ordered By: Lesly Hardwick on 10-21-2024 Calcium [Mass/Vol] 8.4 mg/dL 7.6-11.0 [facility] Serum or plasma urea nitroge n measurement (mass/volume)Ordered By: Lesly Hardwick on 10-21-2024 Urea nitrogen [Mass/Vol] 21 mg/dL High 4-19 [facility] Sodium levelOrdered By: Laurie Hardwick on 10-21-2024 Sodium [Moles/Vol] 141 mmol/L 133-145 [facility] Total proteinOrdered By: Josephine Hardwick on 10-21-2024 Protein [Mass/Vol] 7.3 g/dL 5.9-8.4 [facility] White blood cell (WBC) count Ordered By: Lesly Hardwick on 10-21-2024 WBC (Bld) [#/Vol] 4.2 10*3/uL Low 4.4-11.0 [facility] Absolute lymphocyte countOrd ered By: Desiree Tapia on 10-04-2024 Lymphocytes Auto (Unsp spec) [#/Vol] 0.83 10*3/uL 0.83-4.51 [facility] Absolute neutrophil countOrd ered By: Desiree Tapia on 10-04-2024 Neutrophils (Bld) [#/Vol] 5.4 10*3/uL 2.0-7.7 [facility] Anion gap in Serum or Plasma Ordered By: Desiree Tapia on 10-04-2024 Anion gap [Moles/Vol] 15 mmol/L 5-15 [facility] Automated lymphocyte count a s percentage of total leukocytesOrdered By: Desiree Tapia on 10-04-2024 Lymphocytes/100 WBC Auto (Unsp spec) 11.8 % Low 19-41 [facility] BUN/creatinine ratioOrdered By: Desiree Tapia on 10-04-2024 Urea nitrogen/Creatinine [Mass ratio] 13.8 mg/mg 10-20 [facility] Basophil percentageOrdered B y: Desiree Tapia on 10-04-2024 Basophils/100 WBC (Bld) 0.9 % 0-1 [facility] Bilirubin, totalOrdered By: Desiree Tapia on 10-04-2024 Bilirubin [Mass/Vol] 0.70 mg/dL 0.00-1.30 [facility] CBC W/Diff, Automatedon 09-10 Absolute Lymph 0.83 X10 3/uL Normal 0.83-4.51 [facility] Comment on above: Performed By: #### L 501.9520, L502.0250, L503.0106, L500.4050, L503.6030, L100.0100, L503.6550 ####[facility] [address] [place], [address] Absolute Neut 5.4 X10 3/uL Normal 2.0-7.7 [facility] Comment on above: Performed By: #### L 501.9520, L502.0250, L503.0106, L500.4050, L503.6030, L100.0100, L503.6550 ####[facility] [address] [place], [address] Basophils/100 WBC (Bld) 0.9 % Normal 0-1 [facility] Comment on above: Performed By: #### L 501.9520, L502.0250, L503.0106, L500.4050, L503.6030, L100.0100, L503.6550 ####[facility] [address] [place], [address] Eosinophils/100 WBC (Bld) 2.1 % Normal 0-5 [facility] Comment on above: Performed By: #### L 501.9520, L502.0250, L503.0106, L500.4050, L503.6030, L100.0100, L503.6550 ####[facility] [address] [place], [address] Erythrocyte distribution width (RBC) [Ratio] 14.9 % High 11.6-14.6 [facility] Comment on above: Performed By: #### L 501.9520, L502.0250, L503.0106, L500.4050, L503.6030, L100.0100, L503.6550 ####[facility] [address] [place], [address] Hematocrit (Bld) [Volume fraction] 28.0 % Low 37-47 [facility] Comment on above: Performed By: #### L 501.9520, L502.0250, L503.0106, L500.4050, L503.6030, L100.0100, L503.6550 ####[facility] [address] [place], [address] Hemoglobin (Bld) [Mass/Vol] 8.3 g/dL Low 12.0-15.0 [facility] Comment on above: Performed By: #### L 501.9520, L502.0250, L503.0106, L500.4050, L503.6030, L100.0100, L503.6550 ####[facility] [address] [place], [address] IG% 1.600 High 0.0-0.9 [facility] Comment on above: Result Comment: IG% - Immature Granulocytes (promyelocytes, myelocytes and metamyelocytes) > 1% indicates that a LEFT SHIFT is Present. Performed By: #### L 501.9520, L502.0250, L503.0106, L500.4050, L503.6030, L100.0100, L503.6550 ####[facility] [address] [place], [address] Lymphocytes/100 WBC (Bld) 11.8 % Low 19-41 [facility] Comment on above: Performed By: #### L 501.9520, L502.0250, L503.0106, L500.4050, L503.6030, L100.0100, L503.6550 ####[facility] [address] [place], [address] MCH (RBC) [Entitic mass] 24.9 pg Low 27.0-32.0 [facility] Comment on above: Performed By: #### L 501.9520, L502.0250, L503.0106, L500.4050, L503.6030, L100.0100, L503.6550 ####[facility] [address] [place], [address] MCHC (RBC) [Mass/Vol] 29.6 g/dL Low 32-36 [facility] Comment on above: Performed By: #### L 501.9520, L502.0250, L503.0106, L500.4050, L503.6030, L100.0100, L503.6550 ####[facility] [address] [place], [address] MCV (RBC) [Entitic vol] 83.8 fL Normal 81-99 [facility] Comment on above: Performed By: #### L 501.9520, L502.0250, L503.0106, L500.4050, L503.6030, L100.0100, L503.6550 ####[facility] [address] [place], [address] Monocytes/100 WBC (Bld) 7.8 % Normal 0-10 [facility] Comment on above: Performed By: #### L 501.9520, L502.0250, L503.0106, L500.4050, L503.6030, L100.0100, L503.6550 ####[facility] [address] [place], [address] Neutrophils/100 WBC (Bld) 75.8 % High 47-70 [facility] Comment on above: Performed By: #### L 501.9520, L502.0250, L503.0106, L500.4050, L503.6030, L100.0100, L503.6550 ####[facility] [address] [place], [address] Nucleated RBC (Bld) [#/Vol] 0 10*3/uL Normal 0-5 [facility] Comment on above: Performed By: #### L 501.9520, L502.0250, L503.0106, L500.4050, L503.6030, L100.0100, L503.6550 ####[facility] [address] [place], [address] Platelet mean volume (Bld) [Entitic vol] 11.9 fL Normal 6.2-12.0 [facility] Comment on above: Performed By: #### L 501.9520, L502.0250, L503.0106, L500.4050, L503.6030, L100.0100, L503.6550 ####[facility] [address] [place], [address] Platelets (Bld) [#/Vol] 220 10*3/uL Normal 150-450 [facility] Comment on above: Performed By: #### L 501.9520, L502.0250, L503.0106, L500.4050, L503.6030, L100.0100, L503.6550 ####[facility] [address] [place], [address] RBC (Bld) [#/Vol] 3.34 10*6/uL Low 4.2-5.4 [facility] Comment on above: Performed By: #### L 501.9520, L502.0250, L503.0106, L500.4050, L503.6030, L100.0100, L503.6550 ####[facility] [address] [place], [address] RDW SD 45.2 fl High 35.1-43.9 [facility] Comment on above: Performed By: #### L 501.9520, L502.0250, L503.0106, L500.4050, L503.6030, L100.0100, L503.6550 ####[facility] [address] [place], [place], [phone](403) WBC (Bld) [#/Vol] 7.1 10*3/uL Normal 4.4-11.0 [facility] Comment on above: Performed By: #### L 501.9520, L502.0250, L503.0106, L500.4050, L503.6030, L100.0100, L503.6550 ####[facility] [address] [place], [place], [phone] Carbon dioxide, total [Moles /volume] in Central venous bloodOrdered By: Desiree Tapia on 10-04-2024 CO2 [Moles/Vol] 20.1 mmol/L Low 21.0-32.0 [facility] Chloride assayOrdered By: Lasha Tapia on 10-04-2024 Chloride [Moles/Vol] 107 mmol/L 98-108 [facility] Comprehensive Metabolic Prof ilon 10-04-2024 Albumin [Mass/Vol] 3.9 g/dL Normal 3.4-4.8 [facility] Comment on above: Performed By: #### L 501.9520, L502.0250, L503.0106, L500.4050, L503.6030, L100.0100, L503.6550 ####[facility] [address] [place], [address] Albumin/Globulin [Mass ratio] 1.1 {ratio} Normal 0.9-2.4 [facility] Comment on above: Performed By: #### L 501.9520, L502.0250, L503.0106, L500.4050, L503.6030, L100.0100, L503.6550 ####[facility] [address] [place], [address] ALK PHOS 122 U/L High 35-104 [facility] Comment on above: Performed By: #### L 501.9520, L502.0250, L503.0106, L500.4050, L503.6030, L100.0100, L503.6550 ####[facility] [address] [place], [address] ALT [Catalytic activity/Vol] 21 U/L Normal <=34 [facility] Comment on above: Performed By: #### L 501.9520, L502.0250, L503.0106, L500.4050, L503.6030, L100.0100, L503.6550 ####[facility] [address] [place], [address] AST [Catalytic activity/Vol] 29 U/L Normal <=31 [facility] Comment on above: Performed By: #### L 501.9520, L502.0250, L503.0106, L500.4050, L503.6030, L100.0100, L503.6550 ####[facility] [address] [place], [address] Bilirubin [Mass/Vol] 0.70 mg/dL Normal 0.00-1.30 [facility] Comment on above: Performed By: #### L 501.9520, L502.0250, L503.0106, L500.4050, L503.6030, L100.0100, L503.6550 ####[facility] [address] [place], [address] BUN/CRE 13.8 RATIO Normal 10-20 [facility] Comment on above: Performed By: #### L 501.9520, L502.0250, L503.0106, L500.4050, L503.6030, L100.0100, L503.6550 ####[facility] [address] [place], [address] Calcium [Mass/Vol] 8.9 mg/dL Normal 7.6-11.0 [facility] Comment on above: Performed By: #### L 501.9520, L502.0250, L503.0106, L500.4050, L503.6030, L100.0100, L503.6550 ####[facility] [address] [place], [address] Chloride [Moles/Vol] 107 mmol/L Normal 98-108 [facility] Comment on above: Performed By: #### L 501.9520, L502.0250, L503.0106, L500.4050, L503.6030, L100.0100, L503.6550 ####[facility] [address] [place], [address] CO2 [Moles/Vol] 20.1 mmol/L Low 21.0-32.0 [facility] Comment on above: Performed By: #### L 501.9520, L502.0250, L503.0106, L500.4050, L503.6030, L100.0100, L503.6550 ####[facility] [address] [place], [address] Creatinine [Mass/Vol] 1.29 mg/dL High 0.70-1.20 [facility] Comment on above: Performed By: #### L 501.9520, L502.0250, L503.0106, L500.4050, L503.6030, L100.0100, L503.6550 ####[facility] [address] [place], [address] GAP 15 Normal 5-15 [facility] Comment on above: Performed By: #### L 501.9520, L502.0250, L503.0106, L500.4050, L503.6030, L100.0100, L503.6550 ####[facility] [address] [place], [address] GFR/1.73 sq M.predicted among non-blacks MDRD (S/P/Bld) [Vol rate/Area] 42 mL/min/{1.73_m2} Low >60 [facility] Comment on above: Result Comment: mL/m in/1.73m2 CKD-EPI Creatinine Equation (2020) Performed By: #### L 501.9520, L502.0250, L503.0106, L500.4050, L503.6030, L100.0100, L503.6550 ####[facility] [address] [place], [address] Globulin (S) [Mass/Vol] 3.6 g/dL Normal 2.2-4.2 [facility] Comment on above: Performed By: #### L 501.9520, L502.0250, L503.0106, L500.4050, L503.6030, L100.0100, L503.6550 ####[facility] [address] [place], [address] Glucose [Mass/Vol] 173 mg/dL High 70-99 [facility] Comment on above: Performed By: #### L 501.9520, L502.0250, L503.0106, L500.4050, L503.6030, L100.0100, L503.6550 ####[facility] [address] [place], [address] Potassium [Moles/Vol] 4.1 mmol/L Normal 3.3-5.1 [facility] Comment on above: Performed By: #### L 501.9520, L502.0250, L503.0106, L500.4050, L503.6030, L100.0100, L503.6550 ####[facility] [address] [place], [place], [phone] Sodium [Moles/Vol] 142 mmol/L Normal 133-145 [facility] Comment on above: Performed By: #### L 501.9520, L502.0250, L503.0106, L500.4050, L503.6030, L100.0100, L503.6550 ####[facility] [address] [place], [place], [phone]) T PROT 7.5 g/dL Normal 5.9-8.4 [facility] Comment on above: Performed By: #### L 501.9520, L502.0250, L503.0106, L500.4050, L503.6030, L100.0100, L503.6550 ####[facility] [address] [place], [place], [phone] Urea nitrogen [Mass/Vol] 18 mg/dL Normal 4-19 [facility] Comment on above: Performed By: #### L 501.9520, L502.0250, L503.0106, L500.4050, L503.6030, L100.0100, L503.6550 ####[facility] [address] [place], [place], [phone] Eosinophil percentageOrdered By: Desiree Tapia on 10-04-2024 Eosinophils/100 WBC (Bld) 2.1 % 0-5 [facility] Erythrocyte distribution wid th ratioOrdered By: Desiree Tapia on 10-04-2024 Erythrocyte distribution width (RBC) [Ratio] 14.9 % High 11.6-14.6 [facility] Erythrocyte distribution wid th standard deviationOrdered By: Desiree Tapia on 10-04-2024 Erythrocyte distribution width (RBC) [Ratio] 45.2 fl High 35.1-43.9 [facility] Ferritinon 10-04-2024 Ferritin [Mass/Vol] 14 ng/mL Low 22-378 [facility] Comment on above: Performed By: #### L 501.9520, L502.0250, L503.0106, L500.4050, L503.6030, L100.0100, L503.6550 ####[facility] [address] [place], [place], [phone] Glomerular filtration rate ( GFR) estimation/1.73 sq m using serum, plasma, or whole bOrdered By: Desiree Tapia on 10-04-2024 GFR/1.73 sq M.predicted among non-blacks MDRD (S/P/Bld) [Vol rate/Area] 42 mL/min/{1.73_m2} Low >60 [facility] Comment on above: mL/min/1.73m2 CKD-EP I Creatinine Equation (2020) Hematocrit Auto (Bld) [Volum e fraction]Ordered By: Desiree Tapia on 10-04-2024 Hematocrit (Bld) [Volume fraction] 28.0 % Low 37-47 [facility] Hemoglobin measurementOrdere d By: Desiree Tapia on 10-04-2024 Hemoglobin (Bld) [Mass/Vol] 8.3 g/dL Low 12.0-15.0 [facility] Immature granulocytes/100 WB C Auto (Bld)Ordered By: Desiree Tapia on 10-04-2024 Immature granulocytes/100 WBC (Bld) 1.600 % High 0.0-0.9 [facility] Comment on above: IG% - Immature Granu locytes (promyelocytes, myelocytes and metamyelocytes) > 1% indicates that a LEFT SHIFT is Present. Iron measurement (mass/mass) Ordered By: Desiree Tapia on 10-04-2024 Iron (Unsp spec) [Mass/Mass] 29 ug/dL Low 50-170 [facility] Iron+Iron Binding Capacityon 10-04-2024 Iron [Mass/Vol] 29 ug/dL Low 50-170 [facility] Comment on above: Performed By: #### L 501.9520, L502.0250, L503.0106, L500.4050, L503.6030, L100.0100, L503.6550 ####[facility] [address] [place], [address] IRON SATURATION 7.0 Low 13-59 [facility] Comment on above: Performed By: #### L 501.9520, L502.0250, L503.0106, L500.4050, L503.6030, L100.0100, L503.6550 ####[facility] [address] [place], [address] TIBC 406 ug/dL Normal 250-450 [facility] Comment on above: Performed By: #### L 501.9520, L502.0250, L503.0106, L500.4050, L503.6030, L100.0100, L503.6550 ####[facility] [address] [place], [address] UIBC 377 ug/dL Normal 228-428 [facility] Comment on above: Performed By: #### L 501.9520, L502.0250, L503.0106, L500.4050, L503.6030, L100.0100, L503.6550 ####[facility] [address] [place], [address] Laboratory - Chemistry and C hemistry - challengeOrdered By: Desiree Tapia on 10-04-2024 AST [Catalytic activity/Vol] 29 U/L <32 [facility] MCV (mean corpuscular volume ) determinationOrdered By: Desiree Tapia on 10-04-2024 MCV (RBC) [Entitic vol] 83.8 fL 81-99 [facility] Mean corpuscular hemoglobin (MCH) determinationOrdered By: Desiree Tapia on 10-04-2024 MCH (RBC) [Entitic mass] 24.9 pg Low 27.0-32.0 [facility] Mean corpuscular hemoglobin concentration (MCHC) determinationOrdered By: Desiree Tapia on 10-04-2024 MCHC (RBC) [Mass/Vol] 29.6 g/dL Low 32-36 [facility] Mean platelet volume determi nationOrdered By: Desiree Tapia on 10-04-2024 Platelet mean volume (Bld) [Entitic vol] 11.9 fL 6.2-12.0 [facility] Microalb:Creat Ratio,Random URon 10-04-2024 MALB:CREAT 327.0 mg/g CRE High <30 mg/g CRE [facility] Comment on above: Performed By: #### L 501.9520, L502.0250, L503.0106, L500.4050, L503.6030, L100.0100, L503.6550 ####[facility] [address] [place], [place], [phone] MICROALBUMIN,UR 533.0 mg/L Normal <20 mg/L [facility] Comment on above: Performed By: #### L 501.9520, L502.0250, L503.0106, L500.4050, L503.6030, L100.0100, L503.6550 ####[facility] [address] [place], [place], [phone] Monocyte percentageOrdered B y: Desiree Tapia on 10-04-2024 Monocytes/100 WBC (Bld) 7.8 % 0-10 [facility] Neutrophil percentageOrdered By: Desiree Tapia on 10-04-2024 Neutrophils/100 WBC (Bld) 75.8 % High 47-70 [facility] No Panel InformationOrdered By: Desiree Tapia on 10-04-2024 Unsaturated Iron Binding Capacity 377 ug/dL 228-428 [facility] Nucleated red blood cell per centageOrdered By: Desiree Tapia on 10-04-2024 Nucleated RBC/100 WBC (Bld) [Ratio] 0 % 0-5 [facility] Platelet countOrdered By: Lasha Tapia on 10-04-2024 Platelets (Bld) [#/Vol] 220 10*3/uL 150-450 [facility] Potassium measurement (mass/ volume)Ordered By: Desiree Tapia on 10-04-2024 Potassium (Unsp spec) [Mass/Vol] 4.1 mmol/L 3.3-5.1 [facility] RBC Auto (Bld) [#/Vol]Ordere d By: Desiree Tapia on 10-04-2024 RBC (Bld) [#/Vol] 3.34 10*6/uL Low 4.2-5.4 [facility] Random urine creatinine nick urement (mass/volume)Ordered By: Desiree Tapia on 10-04-2024 Creatinine Unsp time (U) [Mass/Vol] 163.00 mg/dL 28.00-217.00 [facility] Serum creatinine measurement (mass/volume)Ordered By: Desiree Tapia on 10-04-2024 Creatinine [Mass/Vol] 1.29 mg/dL High 0.70-1.20 [facility] Serum globulin measurementOr dered By: Desiree Tapia on 10-04-2024 Globulin (S) [Mass/Vol] 3.6 g/dL 2.2-4.2 [facility] Serum glucose measurement (m ass/volume)Ordered By: Desiree Tapia on 10-04-2024 Glucose [Mass/Vol] 173 mg/dL High 70-99 [facility] Serum or plasma alanine mao otransferase (ALT) measurementOrdered By: Desiree Tapia on 10-04-2024 ALT [Catalytic activity/Vol] 21 U/L <35 [facility] Serum or plasma albumin nick urement (mass/volume)Ordered By: Desiree Tapia on 10-04-2024 Albumin [Mass/Vol] 3.9 g/dL 3.4-4.8 [facility] Serum or plasma albumin/glob ulin mass ratioOrdered By: Desiree Tapia on 10-04-2024 Albumin/Globulin [Mass ratio] 1.1 {ratio} 0.9-2.4 [facility] Serum or plasma alkaline kathleen sphatase measurementOrdered By: Desiree Tapia on 10-04-2024 ALP [Catalytic activity/Vol] 122 U/L High 35-104 [facility] Serum or plasma calcium nick urement (mass/volume)Ordered By: Desiree Tapia on 10-04-2024 Calcium [Mass/Vol] 8.9 mg/dL 7.6-11.0 [facility] Serum or plasma ferritin bacilio surement (mass/volume)Ordered By: Desiree Tapia on 10-04-2024 Ferritin [Mass/Vol] 14 ng/mL Low 22-378 [facility] Serum or plasma iron saturat ion measurement (mass fraction)Ordered By: Desiree Tapia on 10-04-2024 Iron saturation [Mass fraction] 7.0 % Low 13-59 [facility] Serum or plasma urea nitroge n measurement (mass/volume)Ordered By: Desiree Tapia on 10-04-2024 Urea nitrogen [Mass/Vol] 18 mg/dL 4-19 [facility] Sodium levelOrdered By: Alvina Tapia on 10-04-2024 Sodium [Moles/Vol] 142 mmol/L 133-145 [facility] TSH DL <= 0.005 mIU/L QnOrde red By: Desiree Tapia on 10-04-2024 TSH Qn 4.760 uIU/mL High 0.300-4.200 [facility] Thyroid Stim Hormone (TSH)on 10-04-2024 TSH 4.760 uIU/mL High 0.300-4.200 [facility] Comment on above: Performed By: #### L 501.9520, L502.0250, L503.0106, L500.4050, L503.6030, L100.0100, L503.6550 ####[facility] [address] [place], [address] Total proteinOrdered By: Hermes Tapia on 10-04-2024 Protein [Mass/Vol] 7.5 g/dL 5.9-8.4 [facility] Urine albumin measurement wi detection limit of 20 mg/L or less (mass/volume)Ordered By: Desiree Tapia on 10-04-2024 Albumin DL <= 20 mg/L (U) [Mass/Vol] 533.0 mg/L <20 mg/L [facility] Vitamin B12on 10-04-2024 Cobalamin (Vitamin B12) [Mass/Vol] 536 pg/mL Normal 180-914 [facility] Comment on above: Performed By: #### L 501.9520, L502.0250, L503.0106, L500.4050, L503.6030, L100.0100, L503.6550 ####[facility] [address] [place], [address] Vitamin B12 ser/plasOrdered By: Desiree Taipa on 10-04-2024 Cobalamin (Vitamin B12) [Mass/Vol] 536 pg/mL 180-914 [facility] White blood cell (WBC) count Ordered By: Desiree Tapia on 10-04-2024 WBC (Bld) [#/Vol] 7.1 10*3/uL 4.4-11.0 [facility] Modified Barium Swallow Stud yon 08-29-2024 Modified Barium Swallow Study [facility] Speech Pathology [address] [place] [address] Modified Barium Swallow Study MR#: [id number] Acct: [id number] Name: SANDIE NAGELES DAWSON Rep #: [id number] : 1945 79 From: Mandie Pham M.A., [facility] Modified Barium Swallow Patient Information Study Date: [...] in the lower esophagus w/ retrograde flow. Wylie Thick Liquid via small single sip: cup: [...] esophagus. Recommendations (more content not included)... Normal [facility] Neurology Visit Reporton Neurology Visit Report [facility] [address], [address] [place] [address] OFFICE VISIT Date of Service: 06/28/24 MR#: [id number] Acct: [id number] Name: SANDIE ANGLEES DAWSON Rep #: [id number] : 1945 Provider: Dr. Surendra vergara MD Age/Sex: 79/F Location: [facility]. Status: Signed HPI HPI Chief Complaint: Fatigue, [...] the eye directly. She has seen an machine assembler. She was treated with a course of [...] in the toes. She takes acetaminophen and rqtp-tyf-khakaot ibuprofen once or twice daily and this [...] infection was low however a podiatry referral (Alexsandra MarshallPLaura) was made however the patient did not see a business rules developer. Right ankle x-rays revealed mild soft tissue [...] with post (more content not included)... Normal [facility] Urgent Care Visit Reporton 0 06-28-2024 Urgent Care Visit Report [facility] [address], [address] [place] [address] OFFICE VISIT Date of Service: 06/28/24 MR#: [id number] Acct: [id number] Name: SANDIE ANGELES DAWSON Rep #: [id number] : 1945 Provider: SUZETTE Whitman Age/Sex: 79/F Location: [facility] Status: Signed Intake Vital Signs 06/28/24 13:05 [...] R EAR Chief Complaint: right ear plugged Restaurant Assistant Required: No Is patient in pain?: No [...] by Dr. Hidalgo for eval right ear. [facility] Medical History (Updated 06/28/24 @ 15:34 by [...] in: other frequency: 1-2 times per week luna/scientologist: Mandaen seatbelt use: always HPI HPI Chief Complaint: right ear plugged Details: SANDIE ANGELES, is a 79 F who presents to the office today for right ear cerumen impaction removal as noticed by neurology. Patient notes localized tender to the same though no complaints of fever, chills, sweats, lightheadedness/dizzine ss, nausea/vomiting. Patient admits to using Q-tips to clean her ears frequently. No snho-bfa-qlfyali medications taken to assist with current symptoms. No other associated symptoms and no other alleviating/aggravating factors. ROS Const Constitutional: No other (As above) Exam Const General: cooperative, healthy appearing and no acute distress Orientation: alert and awake HENSC Head: normal to inspection Ears: hearing grossly [...] of Cerumen: (more content not included)... Normal [facility] Duplex ultrasound of carotid artery reportOrdered By: Arya Argueta on 04-20-2024 Study report [facility] [address] [place] [address] Carotid Duplex Ultrasound 04/19/24 0948 MR#: [id number] Acct: [id number] Name: SANDIE ANGELES Rep #:[id number] : 1945 78 From: Arya Brown Attending Dr: SUZETTE Cavazos Stat us: REG CLI Ordering Dr: Haley Menard Date: Location: [facility] Sex: F C Admitted: Reason For Study Reason For Study: CAROTID STENOSIS Rt. Velocities/BP Lt. Velocities/BP Prox CCA 79.9/10.0 cm/sec. Prox CCA 107.6/13.0 cm/sec. Mid CCA 75.2/11.9 cm/sec. Mid VAJ820.7/14.2 cm/sec. Dist CCA 72.4/8.1 cm/sec. Dist CCA [...] the left vertebral artery. Procedure Carotid Duplex 88933. This is a Carotid Duplex examination using B-mode, color flow and specral Doppler. Exam performed in department. VL/Carotid Duplex Ultrasound Interpretation Summary Moderate (50-69%) stenosis right extracranial internal carotid. Moderate (50-69%) stenosis left extracranial internal carotid. Patent and antegrade vertebrals bilaterally. Ordering Physician: Haley Menard Referring Physician: Desiree Tapia Performed By: Janell Rubi, MICHAELLE, RVT 04/20/24705 Date _ Arya Argueta MD CC: SUZETTE Cavazos; Dr. Desiree Tapia MD ~ Date Dictated: 04/19/24947 Date Transcribed: 04/20/24705 Local Combination Truck Driver: Signed [facility] Work Phone: Carotid Duplex Ultrasoundon 04-19-2024 Carotid Duplex Ultrasound [facility] Cardiovascular Services [address] [place] [address] Carotid Duplex Ultrasound 04/19/24947 MR#: [id number] Acct: [id number] Name: SANDIE ANGELES DAWSON Rep #: [id number] : 1945 78 From: Arya Argueta MD Attending Dr: SUZETTE Cavazos Status: REG CLI Ordering Dr: Haley Menard Date: 04/19/24 Location: [facility] Sex: F C Admitted: Reason For Study [...] the left vertebral artery. Procedure Carotid Duplex 64371. This is a Carotid Duplex examination using B-mode, color flow and specral Doppler. Exam performed in department. VL/Carotid Duplex Ultrasound Interpretation Summary Moderate (50-69%) stenosis right extracranial internal carotid. Moderate (50-69%) stenosis left extracranial internal carotid. Patent and antegrade vertebrals bilaterally. Ordering Physician: Haley Menard Referring Physician: Desiree Tapia Performed By: Janell Rubi, RDCS, RVT 04/20/24705 Date Arya Argueta MD CC: SUZETTE Cavazos; Dr. Desiree Tapia MD Date Dictated: 04/19/24947 Date Transcribed: 04/20/24705 Local Combination Truck Driver: Signed [facility] MR/BMS.BVSon 04-19-2024 MR/BMS.S [facility] Vascular Surgery 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 Normal [facility] Absolute lymphocyte countOrd ered By: Desiree Tapia on 04-01-2024 Lymphocytes Auto (Unsp spec) [#/Vol] 0.75 10*3/uL Low 0.83-4.51 [facility] Absolute neutrophil countOrd ered By: Desiree Tapia on 04-01-2024 Neutrophils (Bld) [#/Vol] 3.8 10*3/uL 2.0-7.7 [facility] Albumin to globulin ratioOrd ered By: Desiree Tapia on 04-01-2024 Albumin/Globulin [Mass ratio] 0.7 {ratio} Low 0.9-2.4 [facility] Automated lymphocyte count a s percentage of total leukocytesOrdered By: Desiree Tapia on 02-21-2025 Lymphocytes/100 WBC Auto (Unsp spec) 14.6 % Low 19-41 [facility] Basophil percentageOrdered B y: Desiree Tapia on 04-01-2024 Basophils/100 WBC (Bld) 1.2 % High 0-1 [facility] Bilirubin, totalOrdered By: Desiree Sharpgeraroldan on 04-01-2024 Bilirubin [Mass/Vol] 0.50 mg/dL 0.20-1.00 [facility] Comment on above: For patients on eltr ombopag therapy, use of Dimension [place] TBIL is not recommended. Blood urea nitrogen (BUN)/cr eatinine ratioOrdered By: Desiree Lilaumer on 04-01-2024 Urea nitrogen/Creatinine [Mass ratio] 17.4 mg/mg 10-20 [facility] CBC W/Diff, Automatedon 03-13 Absolute Lymph 0.75 X10 3/uL Low 0.83-4.51 [facility] Comment on above: Performed By: #### L 500.4050, L501.9520, L503.6030, L503.6550, L503.0105, L100.0100 ####[facility] [address] [place], [address] Absolute Neut 3.8 X10 3/uL Normal 2.0-7.7 [facility] Comment on above: Performed By: #### L 500.4050, L501.9520, L503.6030, L503.6550, L503.0105, L100.0100 ####[facility] [address] [place], [address] Basophils/100 WBC (Bld) 1.2 % High 0-1 [facility] Comment on above: Performed By: #### L 500.4050, L501.9520, L503.6030, L503.6550, L503.0105, L100.0100 ####[facility] [address] [place], [address] Eosinophils/100 WBC (Bld) 2.7 % Normal 0-5 [facility] Comment on above: Performed By: #### L 500.4050, L501.9520, L503.6030, L503.6550, L503.0105, L100.0100 ####[facility] [address] [place], [address] Erythrocyte distribution width (RBC) [Ratio] 14.0 % Normal 11.6-14.6 [facility] Comment on above: Performed By: #### L 500.4050, L501.9520, L503.6030, L503.6550, L503.0105, L100.0100 ####[facility] [address] [place], [address] Hematocrit (Bld) [Volume fraction] 38.4 % Normal 37-47 [facility] Comment on above: Performed By: #### L 500.4050, L501.9520, L503.6030, L503.6550, L503.0105, L100.0100 ####[facility] [address] [place], [address] Hemoglobin (Bld) [Mass/Vol] 12.5 g/dL Normal 12.0-15.0 [facility] Comment on above: Performed By: #### L 500.4050, L501.9520, L503.6030, L503.6550, L503.0105, L100.0100 ####[facility] [address] [place], [address] IG% 0.200 Normal 0.0-0.9 [facility] Comment on above: Result Comment: IG% - Immature Granulocytes (promyelocytes, myelocytes and metamyelocytes) > 1% indicates that a LEFT SHIFT is Present. Performed By: #### L 500.4050, L501.9520, L503.6030, L503.6550, L503.0105, L100.0100 ####[facility] [address] [place], [address] Lymphocytes/100 WBC (Bld) 14.6 % Low 19-41 [facility] Comment on above: Performed By: #### L 500.4050, L501.9520, L503.6030, L503.6550, L503.0105, L100.0100 ####[facility] [address] [place], [address] MCH (RBC) [Entitic mass] 30.6 pg Normal 27.0-32.0 [facility] Comment on above: Performed By: #### L 500.4050, L501.9520, L503.6030, L503.6550, L503.0105, L100.0100 ####[facility] [address] [place], [address] MCHC (RBC) [Mass/Vol] 32.6 g/dL Normal 32-36 [facility] Comment on above: Performed By: #### L 500.4050, L501.9520, L503.6030, L503.6550, L503.0105, L100.0100 ####[facility] [address] [place], [address] MCV (RBC) [Entitic vol] 94.1 fL Normal 81-99 [facility] Comment on above: Performed By: #### L 500.4050, L501.9520, L503.6030, L503.6550, L503.0105, L100.0100 ####[facility] [address] [place], [address] Monocytes/100 WBC (Bld) 7.0 % Normal 0-10 [facility] Comment on above: Performed By: #### L 500.4050, L501.9520, L503.6030, L503.6550, L503.0105, L100.0100 ####[facility] [address] [place], [address] Neutrophils/100 WBC (Bld) 74.3 % High 47-70 [facility] Comment on above: Performed By: #### L 500.4050, L501.9520, L503.6030, L503.6550, L503.0105, L100.0100 ####[facility] [address] [place], [address] Nucleated RBC (Bld) [#/Vol] 0 10*3/uL Normal 0-5 [facility] Comment on above: Performed By: #### L 500.4050, L501.9520, L503.6030, L503.6550, L503.0105, L100.0100 ####[facility] [address] [place], [address] Platelet mean volume (Bld) [Entitic vol] 11.8 fL Normal 6.2-12.0 [facility] Comment on above: Performed By: #### L 500.4050, L501.9520, L503.6030, L503.6550, L503.0105, L100.0100 ####[facility] [address] [place], [address] Platelets (Bld) [#/Vol] 148 10*3/uL Low 150-450 [facility] Comment on above: Performed By: #### L 500.4050, L501.9520, L503.6030, L503.6550, L503.0105, L100.0100 ####[facility] [address] [place], [address] RBC (Bld) [#/Vol] 4.08 10*6/uL Low 4.2-5.4 [facility] Comment on above: Performed By: #### L 500.4050, L501.9520, L503.6030, L503.6550, L503.0105, L100.0100 ####[facility] [address] [place], [address] RDW SD 48.0 fl High 35.1-43.9 [facility] Comment on above: Performed By: #### L 500.4050, L501.9520, L503.6030, L503.6550, L503.0105, L100.0100 ####[facility] [address] [place], [address] WBC (Bld) [#/Vol] 5.2 10*3/uL Normal 4.4-11.0 [facility] Comment on above: Performed By: #### L 500.4050, L501.9520, L503.6030, L503.6550, L503.0105, L100.0100 ####[facility] [address] [place], [place], [id number] Carbon dioxide measurementOr dered By: Desiree Tapia on 04-01-2024 CO2 [Moles/Vol] 25.0 mmol/L 21.0-32.0 [facility] Chloride measurementOrdered By: Desiree Tapia on 04-01-2024 Chloride [Moles/Vol] 108 mmol/L High 98-107 [facility] Comprehensive Metabolic Prof ilon 04-01-2024 Albumin [Mass/Vol] 3.3 g/dL Normal 3.2-5.0 [facility] Comment on above: Performed By: #### L 500.4050, L501.9520, L503.6030, L503.6550, L503.0105, L100.0100 ####[facility] [address] [place], [address] Albumin/Globulin [Mass ratio] 0.7 {ratio} Low 0.9-2.4 [facility] Comment on above: Performed By: #### L 500.4050, L501.9520, L503.6030, L503.6550, L503.0105, L100.0100 ####[facility] [address] [place], [address] ALK P 129 U/L High 45-117 [facility] Comment on above: Performed By: #### L 500.4050, L501.9520, L503.6030, L503.6550, L503.0105, L100.0100 ####[facility] [address] [place], [address] ALT [Catalytic activity/Vol] 35 U/L Normal 13-56 [facility] Comment on above: Performed By: #### L 500.4050, L501.9520, L503.6030, L503.6550, L503.0105, L100.0100 ####[facility] [address] [place], [address] AST [Catalytic activity/Vol] 37 U/L Normal 15-37 [facility] Comment on above: Performed By: #### L 500.4050, L501.9520, L503.6030, L503.6550, L503.0105, L100.0100 ####[facility] [address] [place], [address] Bilirubin [Mass/Vol] 0.50 mg/dL Normal 0.20-1.00 [facility] Comment on above: Result Comment: For patients on eltrombopag therapy, use of Dimension [place] TBIL is not recommended. Performed By: #### L 500.4050, L501.9520, L503.6030, L503.6550, L503.0105, L100.0100 ####[facility] [address] [place], [address] BUN/CRE 17.4 RATIO Normal 10-20 [facility] Comment on above: Performed By: #### L 500.4050, L501.9520, L503.6030, L503.6550, L503.0105, L100.0100 ####[facility] [address] [place], [address] CA,Total 9.4 mg/dL Normal 8.5-10.1 [facility] Comment on above: Performed By: #### L 500.4050, L501.9520, L503.6030, L503.6550, L503.0105, L100.0100 ####[facility] [address] [place], [address] Chloride [Moles/Vol] 108 mmol/L High 98-107 [facility] Comment on above: Performed By: #### L 500.4050, L501.9520, L503.6030, L503.6550, L503.0105, L100.0100 ####[facility] [address] [place], [address] CO2 [Moles/Vol] 25.0 mmol/L Normal 21.0-32.0 [facility] Comment on above: Performed By: #### L 500.4050, L501.9520, L503.6030, L503.6550, L503.0105, L100.0100 ####[facility] [address] [place], [address] Creatinine [Mass/Vol] 1.32 mg/dL High 0.55-1.02 [facility] Comment on above: Result Comment: The validity of the calculated GFR GFRAA in patients over 70 years has not been determined. Clinical correlation is essential. Performed By: #### L 500.4050, L501.9520, L503.6030, L503.6550, L503.0105, L100.0100 ####[facility] [address] [place], [address] EST GFR - AA 50 mL/min Low >60 [facility] Comment on above: Result Comment: Afri can [place] GFR Calc Performed By: #### L 500.4050, L501.9520, L503.6030, L503.6550, L503.0105, L100.0100 ####[facility] [address] [place], [address] GAP 6 Normal 5-15 [facility] Comment on above: Performed By: #### L 500.4050, L501.9520, L503.6030, L503.6550, L503.0105, L100.0100 ####[facility] [address] [place], [address] GFR/1.73 sq M.predicted among non-blacks MDRD (S/P/Bld) [Vol rate/Area] 41 mL/min/{1.73_m2} Low >60 [facility] Comment on above: Result Comment: Non- GFR Calc Performed By: #### L 500.4050, L501.9520, L503.6030, L503.6550, L503.0105, L100.0100 ####[facility] [address] [place], [address] Globulin (S) [Mass/Vol] 4.7 g/dL High 2.2-4.2 [facility] Comment on above: Performed By: #### L 500.4050, L501.9520, L503.6030, L503.6550, L503.0105, L100.0100 ####[facility] [address] [place], [address] Glucose [Mass/Vol] 163 mg/dL High 74-106 [facility] Comment on above: Result Comment: Fast ing Glucose result greater than or equal to 126 mg/dL suggests DIABETES MELLITUS per A.D.A. criteria. Performed By: #### L 500.4050, L501.9520, L503.6030, L503.6550, L503.0105, L100.0100 ####[facility] [address] [place], [address] Potassium [Moles/Vol] 4.5 mmol/L Normal 3.5-5.1 [facility] Comment on above: Performed By: #### L 500.4050, L501.9520, L503.6030, L503.6550, L503.0105, L100.0100 ####[facility] [address] [place], [address] Sodium [Moles/Vol] 140 mmol/L Normal 136-145 [facility] Comment on above: Performed By: #### L 500.4050, L501.9520, L503.6030, L503.6550, L503.0105, L100.0100 ####[facility] [address] [place], [address] T PROT 8.0 g/dL Normal 6.4-8.2 [facility] Comment on above: Performed By: #### L 500.4050, L501.9520, L503.6030, L503.6550, L503.0105, L100.0100 ####[facility] [address] [place], [address] Urea nitrogen [Mass/Vol] 23 mg/dL High 7-18 [facility] Comment on above: Performed By: #### L 500.4050, L501.9520, L503.6030, L503.6550, L503.0105, L100.0100 ####[facility] [address] [place], [address] Eosinophil percentageOrdered By: Desiree Tapia on 04-01-2024 Eosinophils/100 WBC (Bld) 2.7 % 0-5 [facility] Erythrocyte distribution wid th ratioOrdered By: Desiree Tapia on 04-01-2024 Erythrocyte distribution width (RBC) [Ratio] 14.0 % 11.6-14.6 [facility] Erythrocyte distribution wid th standard deviationOrdered By: Desiree Tapia on 04-01-2024 Erythrocyte distribution width (RBC) [Entitic vol] 48.0 fL High 35.1-43.9 [facility] Erythrocyte distribution width (RBC) [Ratio] 48.0 fl High 35.1-43.9 [facility] Estimated glomerular filtrat ion rate (GFR) AmericanOrdered By: Desiree Tapia on 04-01-2024 Estimated GFR (MDRD) Amer 50 mL/min Low >60 [facility] Comment on above: GFR Calc Ferritinon 04-01-2024 Ferritin [Mass/Vol] 34 ng/mL Normal 8-252 [facility] Comment on above: Performed By: #### L 500.4050, L501.9520, L503.6030, L503.6550, L503.0105, L100.0100 ####[facility] [address] [place], [place], [address] Ferritin measurementOrdered By: Desiree Tapia on 04-01-2024 Ferritin [Mass/Vol] 34 ng/mL 8-252 [facility] Glomerular filtration rate ( GFR) estimationOrdered By: Desiree Tapia on 04-01-2024 Estimated GFR (MDRD) Non-Af Amer 41 mL/min Low >60 [facility] Comment on above: Non- GFR Calc GFR/1.73 sq M.predicted among non-blacks MDRD (S/P/Bld) [Vol rate/Area] 41 mL/min/{1.73_m2} Low >60 [facility] Comment on above: Non- GFR Calc Glucose measurementOrdered B y: Desiree Tapia on 04-01-2024 Glucose [Mass/Vol] 163 mg/dL High 74-106 [facility] Comment on above: Fasting Glucose resu lt greater than or equal to 126 mg/dL suggests DIABETES MELLITUS per A.D.A. criteria. Hematocrit Auto (Bld) [Volum e fraction]Ordered By: Desiree Tapia on 04-01-2024 Hematocrit (Bld) [Volume fraction] 38.4 % 37-47 [facility] Hemoglobin measurementOrdere d By: Desiree Tapia on 04-01-2024 Hemoglobin (Bld) [Mass/Vol] 12.5 g/dL 12.0-15.0 [facility] Immature granulocytes/100 WB C Auto (Bld)Ordered By: Desiree Tapia on 04-01-2024 Immature granulocytes/100 WBC (Bld) 0.200 % 0.0-0.9 [facility] Comment on above: IG% - Immature Granu locytes (promyelocytes, myelocytes and metamyelocytes) > 1% indicates that a LEFT SHIFT is Present. Iron (Unsp spec) [Mass/Mass] Ordered By: Desireeejsse Tapia on 04-01-2024 Iron [Mass/Vol] 53 ug/dL 50-170 [facility] Iron measurement (mass/mass) Ordered By: Desiree Tapia on 04-01-2024 Iron (Unsp spec) [Mass/Mass] 53 ug/dL 50-170 [facility] Iron saturation [Mass fracti on]Ordered By: Desiree Tapia on 04-01-2024 Iron Saturation 15.2 % 15.0-55.0 [facility] Iron+Iron Binding Capacityon 04-01-2024 Iron [Mass/Vol] 53 ug/dL Normal 50-170 [facility] Comment on above: Performed By: #### L 500.4050, L501.9520, L503.6030, L503.6550, L503.0105, L100.0100 ####[facility] [address] [place], [place], [id number] IRON SATURATION 15.2 Normal 15.0-55.0 [facility] Comment on above: Performed By: #### L 500.4050, L501.9520, L503.6030, L503.6550, L503.0105, L100.0100 ####[facility] [address] [place], [place], [id number]) TIBC 348 ug/dL Normal 250-450 [facility] Comment on above: Performed By: #### L 500.4050, L501.9520, L503.6030, L503.6550, L503.0105, L100.0100 ####[facility] [address] [place], [address] Laboratory - Chemistry and C hemistry - challengeOrdered By: Desiree Tapia on 04-01-2024 AST [Catalytic activity/Vol] 37 U/L 15-37 [facility] Lymphocytes Auto (Unsp spec) [#/Vol]Ordered By: Desiree Tapia on 04-01-2024 Lymphocytes (Bld) [#/Vol] 0.75 10*3/uL Low 0.83-4.51 [facility] Lymphocytes/100 WBC Auto (Un sp spec)Ordered By: Desiree Tapia on 04-01-2024 Lymphocytes/100 WBC (Bld) 14.6 % Low 19-41 [facility] MCV (mean corpuscular volume ) determinationOrdered By: Desiree Tapia on 04-01-2024 MCV (RBC) [Entitic vol] 94.1 fL 81-99 [facility] Mean corpuscular hemoglobin (MCH) determinationOrdered By: Desiree Tapia on 04-01-2024 MCH (RBC) [Entitic mass] 30.6 pg 27.0-32.0 [facility] Mean corpuscular hemoglobin concentration (MCHC) determinationOrdered By: Desiree Tapia on 04-01-2024 MCHC (RBC) [Mass/Vol] 32.6 g/dL 32-36 [facility] Mean platelet volume determi nationOrdered By: Desiree Tapia on 04-01-2024 Platelet mean volume (Bld) [Entitic vol] 11.8 fL 6.2-12.0 [facility] Monocyte percentageOrdered B y: Desiree Tapia on 04-01-2024 Monocytes/100 WBC (Bld) 7.0 % 0-10 [facility] Neutrophil percentageOrdered By: Desiree Tapia on 04-01-2024 Neutrophils/100 WBC (Bld) 74.3 % High 47-70 [facility] Nucleated red blood cell per centageOrdered By: Desiree Tapia on 02-21-2025 Nucleated RBC/100 WBC (Bld) [Ratio] 0 % 0-5 [facility] Platelet countOrdered By: Lasha eyad Regina on 04-01-2024 Platelets (Bld) [#/Vol] 148 10*3/uL Low 150-450 [facility] Potassium measurementOrdered By: Desiree Tapia on 04-01-2024 Potassium [Moles/Vol] 4.5 mmol/L 3.5-5.1 [facility] RBC Auto (Bld) [#/Vol]Ordere d By: Desiree Tapia on 04-01-2024 RBC (Bld) [#/Vol] 4.08 10*6/uL Low 4.2-5.4 [facility] Serum anion gap measurementO rdered By: Desiree Tapia on 04-01-2024 Anion gap [Moles/Vol] 6 mmol/L 5-15 [facility] Serum globulin measurementOr dered By: Desiree Tapia on 04-01-2024 Globulin (S) [Mass/Vol] 4.7 g/dL High 2.2-4.2 [facility] Serum or plasma alanine mao otransferase (ALT) measurementOrdered By: Desiree Tapia on 04-01-2024 ALT [Catalytic activity/Vol] 35 U/L 13-56 [facility] Serum or plasma albumin nick urement (mass/volume)Ordered By: Desiree Tapia on 04-01-2024 Albumin [Mass/Vol] 3.3 g/dL 3.2-5.0 [facility] Serum or plasma alkaline kathleen sphatase measurementOrdered By: Desiree Tapia on 04-01-2024 ALP [Catalytic activity/Vol] 129 U/L High 45-117 [facility] Serum or plasma calcium nick urement (mass/volume)Ordered By: Desiree Tapia on 04-01-2024 Calcium [Mass/Vol] 9.4 mg/dL 8.5-10.1 [facility] Serum or plasma creatinine m easurement (mass/volume)Ordered By: Desiree Tapia on 04-01-2024 Creatinine [Mass/Vol] 1.32 mg/dL High 0.55-1.02 [facility] Comment on above: The validity of the calculated GFR & GFRAA in patients over 70 years has not been determined. Clinical correlation is essential. Serum or plasma iron saturat ion measurement (mass fraction)Ordered By: Desiree Tapia on 04-01-2024 Iron saturation [Mass fraction] 15.2 % 15.0-55.0 [facility] Serum or plasma thyroid stim ulating hormone (TSH) measurement (units/volume)Ordered By: Desiree Tapia on 04-01-2024 TSH Qn 3.250 uIU/mL 0.358-3.740 [facility] Serum or plasma urea nitroge n measurement (mass/volume)Ordered By: Desiree Tapia on 04-01-2024 Urea nitrogen [Mass/Vol] 23 mg/dL High 7-18 [facility] Sodium levelOrdered By: Alvina Tapia on 04-01-2024 Sodium [Moles/Vol] 140 mmol/L 136-145 [facility] TIBCOrdered By: Desiree harvey on 04-01-2024 Total Iron Binding Capacity 348 ug/dL 250-450 [facility] TSH QnOrdered By: Desiree uribe on 04-01-2024 Thyroid Stimulating Hormone (TSH) 3.250 uIU/mL 0.358-3.740 [facility] Thyroid Stim Hormone (TSH)on 04-01-2024 TSH 3.250 uIU/mL Normal 0.358-3.740 [facility] Comment on above: Performed By: #### L 500.4050, L501.9520, L503.6030, L503.6550, L503.0105, L100.0100 ####[facility] [address] [place], [place], [id number] Total proteinOrdered By: Hermes Tapia on 04-01-2024 Protein [Mass/Vol] 8.0 g/dL 6.4-8.2 [facility] Vitamin B12on 04-01-2024 Cobalamin (Vitamin B12) [Mass/Vol] 550 pg/mL Normal 211-911 [facility] Comment on above: Performed By: #### L 500.4050, L501.9520, L503.6030, L503.6550, L503.0105, L100.0100 ####[facility] [address] [place], [address] Vitamin B12 measurementOrder ed By: Desiree Tapia on 04-01-2024 Cobalamin (Vitamin B12) [Mass/Vol] 550 pg/mL 211-911 [facility] White blood cell (WBC) count Ordered By: Desiree Tapia on 04-01-2024 WBC (Bld) [#/Vol] 5.2 10*3/uL 4.4-11.0 [facility] Neurology Visit Reporton Neurology Visit Report [facility] [address] [facility] [address], [address] [place], [place] [address] OFFICE VISIT Date of Service: 03/22/24 MR#: [id number] Acct: [id number] Name: SANDIE ANGELES DAWSON Rep #: [id number] : 1945 Provider: Dr. Surendra vergara MD Age/Sex: 78/F Location: [facility] [place]. Status: Signed HPI HPI Chief Complaint: Fatigue, [...] the eye directly. She has seen an machine assembler. She was treated with a course of [...] in the toes. She takes acetaminophen and lmwx-crl-qxwauzg ibuprofen once or twice daily and this [...] however the patient did not see a business rules developer. Right ankle x-rays revealed mild soft tissue [...] her martin (more content not included)... Normal [facility] Urine Cultureon 01-13-2024 URC Klebsiella pneumonia e sp pneum [place] Count >100,000 Klebsiella pneumoniae sp pneum: REACTION [...] TMP SMX Islt BRISSA <=20 S Normal [facility] Comment on above: Performed By: #### M 718.4665 ####[facility] [address] [place], [place], [id number] Urine cultureOrdered By: Hermes Tapia on 01-11-2024 Bacteria identified Cx Nom (U) Klebsiella pneumoniae sp pneum Abnormal [facility] Bacteria identified Cx Nom (U) Klebsiella pneumoniae sp pneum Abnormal [facility] Bedside Glucoseon 01-04-2024 FINGERSTICK GLU 99 mg/dL Normal 74-106 [facility] Comment on above: Result Comment: TORY JOSEPH OF PATIENT CARE PER NURSING PROTOCOL Performed By: #### L 501.080 #### [facility] [address] [place], [address] EGD Reporton 01-04-2024 EGD Report [facility] Medical Records Department [address] [place] [address] EGD Report MR#: [id number] Acct: [id number] Name: SANDIE ANGELES DAWSON Rep #: [id number] : 1945 78 From: Moy Ramos DO PCP: Dr. Desiree Tapia MD Status:[facility] Patient Name: Sandie Angeles Procedure Date: 01/04/2024 8:12 AM Date of [...] 12 weeks. Procedure Code(s): --- Professional --- 35504, 59, Esophagogastroduodenosc opy, flexible, transoral; with control of bleeding, any method 38092, 51, Esophagogastroduodenosc opy, flexible, transoral; with biopsy, single or multiple CPT copyright 2021 [employer]. All rights reserved. The codes documented in this report are preliminary and upon orthopedic coder review may be revised to meet current compliance requirements. Moy Ramos DO 01/04/2024 8:3 (more content not included)... Normal [facility] Gl[facility] deOrdered By: Moy Ramos on 01-04-2024 Bedside Glucose ([facility]) 99 mg/dL 74-106 [facility] Comment on above: MANAGEMENT OF PATIEN T CARE PER NURSING PROTOCOL H Pylori (initial)on 024 H Pylori (initial) --- Patient Age/Sex Location Account Attending Physician SANDIE ANGELES 78/F EN [id number] Moy Ramos DO Specimen: [id number] Received: 01/04/24 Status: EDIS Babcock Num: [id number] Spec Type: IMMUNO Subm Dr: Moy Ramos DO PHYSICIAN INSTITUTION [address] [address] SPECIMEN INFORMATION: Tissue Source: B- Gastric body biopsy Clinical Info: Anemia, dysphagia Specimen Number: [id number] CPT code: 04401 METHODOLOGY: Deparaffinized sections of prefer/formalin-fixed tissue or [...] developed and their performance characteristics determined by [facility]. They may not have been cleared or approved by the U.S. Food and Drug Administration. The FDA has determined that such clearance or approval is not necessary. The above immunohistochemical/colt Ephraim markers are ordered and reviewed by the Pathologist. INTERPRETATION: B. Gastric body, biopsy: Negative for Helicobacter pylori organisms. AM. 01/05/2024 Signed (signature on file) Dr. Matt Zaman, 01/05/24 1412 Normal [facility] Comment on above: Performed By: #### P H.PYLORI #### [facility] Laboratory [address] [facility]. [place], [place], [id number] MR/POSTOP.Lissa 01-04-2024 MR/POSTOP.JESSIE [facility] Medical Records Department [address] [place] [address] Anesthesia Postop Eval I 01/04/24 0832 MR#: [id number] Acct: [id number] Name: SANDIE ANGELES DAWSON Rep #: [id number] : 1945 78 From: Stanislav Altamirano PCP: Dr. Desiree Tapia MD Status:[facility] Y Race: C Location: [place] [address] Anesthesia: Postop Eval I Current Vital Signs [...] document: Postop Eval 1 completed: Yes 01/04/24832 Date Stanislav Chauhan Signature: Date CC: Signed Normal [facility] MR/[id number] 01-04-2024 [facility] Medical Records Department [address] [place] [address] Anesthesia Postop Eval II 01/04/24921 MR#: [id number] Acct: [id number] Name: SANDIE ANGELES DAWSON Rep #: [id number] : 1945 78 From: Marcus Jo MD PCP: Dr. Desiree Tapia MD Status:[facility] Y Race: C Location: EN Anesthesia Postop [...] Marcus Chauhan Signature: Date CC: Signed Normal [facility] Surgery Specimen Level Kelby 01-04-2024 Surgery Specimen Level IV Patient Age/Sex Location Account Attending Physician SANDIE ANGELES 78/F EN [id number] Moy Ramos DO Specimen: [id number] Received: 01/04/24 Status: EDIS Babcock Num: [id number] Spec Type: EGD BIOPSY Subm Dr: Moy Ramos, HEADER OPERATION: EGD with biopsy, hemostasis PRE-OP DIAGNOSIS: Anemia, dysphagia TISSUE SUBMITTED: A- Duodenum biopsy, B- Gastric body biopsy MICROSCOPIC DIAGNOSIS A. Duodenum, biopsy: Minimal non-specific chronic inflammation. B. Gastric body, biopsy: Chronic inflammation. See comment. AM. 01/05/2024 COMMENT B. The results of immunohistochemistry for Helicobacter pylori will be reported separately ([id number]). MICROSCOPIC DESCRIPTION Slides are reviewed. GROSS DESCRIPTION [...] submitted in one cassette. AM. 01/04/2024 TC:3 CPT:37312x6 Patient Age/Sex Location Account Attending Physician SANDIE ANGELES 78/F EN [id number] Moy Ramos DO Signed (signature on file) Dr. Matt Zaman DO 01/05/24 1410 Normal [facility] Comment on above: Performed By: #### P SUIV ####[facility] [id number] [place], [place], [id number] Gastroenterology Visit Repor ton 11-26-2023 Gastroenterology Visit Report [facility] Gastroenterology [address] [place] [address] OFFICE VISIT Date of Service: 11/26/23 MR#: [id number] Acct: [id number] Name: SANDIE ANGELES Rep #: [id number] : 1945 Provider: SUZETTE Carlson Age/Sex: 78/F Location: [facility] Status: Signed Intake Vital Signs 11/18/23 13:52 [...] past year?: No Nurse's Note: OV 11.26.23 [facility] Medical History (Updated 11/18/23 @ 14:49 by Mitali Pandya SENIOR MARKETING MANAGER, SENIOR MARKETING MANAGER-C) Dysphagia Pancytopenia Chronic renal failure Iron deficiency [...] in: other frequency: 1-2 times per week luna/scientologist: Mandaen seatbelt use: always HPI HPI Chief Complaint: dysphagia, anemia Details: SANDIE ANGELES, is a 78 F who presents to the office today for establishment with [facility]. Pt has a PMHx of [...] most recent episode of while eating a beninese fernandez. She is not too concerned about [...] fever(s), weig (more content not included)... Normal [facility] Absolute lymphocyte countOrd ered By: Dr. Tapia on 05-20-2022 Lymphocytes Auto (Unsp spec) [#/Vol] 0.99 10*3/uL 0.83-4.51 [facility] Basophil percentageOrdered B y: Dr. Tapia on 05-20-2022 Basophils/100 WBC (Bld) 1.0 % 0-1 [facility] Chloride [Moles/Vol] 111 mmol/L 98-107 [facility] Eosinophils/100 WBC (Bld) 3.4 % 0-5 [facility] Glucose [Mass/Vol] 67 mg/dL 74-106 [facility] Neutrophils (Bld) [#/Vol] 4.3 10*3/uL 2.0-7.7 [facility] Neutrophils/100 WBC (Bld) 69.9 % 47-70 [facility] Potassium [Moles/Vol] 4.3 mmol/L 3.5-5.1 [facility] Sodium [Moles/Vol] 141 mmol/L 136-145 [facility] WBC (Bld) [#/Vol] 6.2 10*3/uL 4.4-11.0 [facility] Blood erythrocytes count (nu mber/volume)Ordered By: Dr. Tapia on 05-20-2022 RBC (Bld) [#/Vol] 3.74 10*6/uL 4.2-5.4 [facility] Blood hemoglobin measurement (mass/volume)Ordered By: Dr. Tapia on 05-20-2022 Hemoglobin (Bld) [Mass/Vol] 11.5 g/dL 12.0-15.0 [facility] Blood lymphocytes/100 leukoc ytesOrdered By: Dr. Tapia on 05-20-2022 Lymphocytes/100 WBC (Bld) 16.0 % 19-41 [facility] Blood monocytes/100 leukocyt esOrdered By: Dr. Tapia on 05-20-2022 Monocytes/100 WBC (Bld) 9.2 % 0-10 [facility] Blood platelet mean volumeOr dered By: Dr. Tapia on 05-20-2022 Platelet mean volume (Bld) [Entitic vol] 11.7 fL 6.2-12.0 [facility] Determination of erythrocyte mean corpuscular volume (MCV)Ordered By: Dr. Tapia on 05-20-2022 MCV (RBC) [Entitic vol] 97.1 fL 81-99 [facility] Hematocrit Auto (Bld) [Volum e fraction]Ordered By: Dr. Tapia on 05-20-2022 Hematocrit (Bld) [Volume fraction] 36.3 % 37-47 [facility] Laboratory - Chemistry and C hemistry - challengeOrdered By: Dr. Tapia on 05-20-2022 CO2 [Moles/Vol] 20.0 mmol/L 21.0-32.0 [facility] Cobalamin (Vitamin B12) [Mass/Vol] 442 pg/mL 211-911 [facility] Urea nitrogen/Creatinine [Mass ratio] 21.3 mg/mg 10-20 [facility] Laboratory - Hematology and Cell countsOrdered By: Dr. Tapia on 05-20-2022 Erythrocyte distribution width (RBC) [Entitic vol] 49.1 fL 35.1-43.9 [facility] Erythrocyte distribution width (RBC) [Ratio] 13.8 % 11.6-14.6 [facility] Immature granulocytes/100 WBC (Bld) 0.500 % 0.0-0.9 [facility] Comment on above: IG% - Immature Granu locytes (promyelocytes, myelocytes and metamyelocytes) > 1% indicates that a LEFT SHIFT is Present. MCH (RBC) [Entitic mass] 30.7 pg 27.0-32.0 [facility] Nucleated RBC/100 WBC (Bld) [Ratio] 0 % 0-5 [facility] Auto (RBC) [Mass/Vol]Or dered By: Dr. Tapia on 05-20-2022 MCHC (RBC) [Mass/Vol] 31.7 g/dL 32-36 [facility] No Panel InformationOrdered By: Dr. Tapia on 05-20-2022 Estimated GFR (MDRD) Amer 55 mL/min >60 [facility] Comment on above: GFR Calc Estimated GFR (MDRD) Non-Af Amer 45 mL/min >60 [facility] Comment on above: Non- GFR Calc Thyroid Stimulating Hormone (TSH) 5.28 uIU/mL 0.358-3.74 [facility] Platelets bldOrdered By: Dr. Tapia on 05-20-2022 Platelets (Bld) [#/Vol] 161 10*3/uL 150-450 [facility] Serum or plasma calcium nick urement (mass/volume)Ordered By: Dr. Tapia on 05-20-2022 Calcium [Mass/Vol] 8.9 mg/dL 8.5-10.1 [facility] Serum or plasma creatinine m easurement (mass/volume)Ordered By: Dr. Tapia on 05-20-2022 Creatinine [Mass/Vol] 1.22 mg/dL 0.55-1.02 [facility] Comment on above: The validity of the calculated GFR & GFRAA in patients over 70 years has not been determined. Clinical correlation is essential. Serum or plasma urea nitroge n measurement (mass/volume)Ordered By: Dr. Tapia on 05-20-2022 Urea nitrogen [Mass/Vol] 26 mg/dL 7-18 [facility] Thin prep Papanicolaou smear with manual screeningOrdered By: Dr. Tapia on 05-20-2022 Thin prep Papanicolaou smear with manual screening 10 5-15 [facility] Whole blood hemoglobin A1c/t otal hemoglobin ratio (mass fraction)Ordered By: Dr. Tapia on 05-20-2022 HbA1c (Bld) [Mass fraction] 6.4 % 3.8-5.6 [facility] Comment on above: Normal < 5.7 % Predi abetic 5.7 - 6.4 % Diabetic >or= 6.5 % Please note range changes. Basophil percentageOrdered B y: Dr. Hidalgo on 02-25-2022 Bilirubin [Mass/Vol] 0.60 mg/dL 0.20-1.00 [facility] Comment on above: For patients on eltr ombopag therapy, use of Dimension [place] TBIL is not recommended. Chloride [Moles/Vol] 113 mmol/L 98-107 [facility] Glucose [Mass/Vol] 59 mg/dL 74-106 [facility] Potassium [Moles/Vol] 4.1 mmol/L 3.5-5.1 [facility] Protein [Mass/Vol] 7.4 g/dL 6.4-8.2 [facility] Sodium [Moles/Vol] 143 mmol/L 136-145 [facility] WBC (Bld) [#/Vol] 3.9 10*3/uL 4.4-11.0 [facility] Blood erythrocytes count (nu mber/volume)Ordered By: Dr. Hidalgo on 02-25-2022 RBC (Bld) [#/Vol] 3.81 10*6/uL 4.2-5.4 [facility] Blood hemoglobin measurement (mass/volume)Ordered By: Dr. Hidalgo on 02-25-2022 Hemoglobin (Bld) [Mass/Vol] 11.6 g/dL 12.0-15.0 [facility] Blood platelet mean volumeOr dered By: Dr. Hidalgo on 02-25-2022 Platelet mean volume (Bld) [Entitic vol] 11.5 fL 6.2-12.0 [facility] Determination of erythrocyte mean corpuscular volume (MCV)Ordered By: Dr. Hidalgo on 02-25-2022 MCV (RBC) [Entitic vol] 94.5 fL 81-99 [facility] Hematocrit Auto (Bld) [Volum e fraction]Ordered By: Dr. Hidalgo on 02-25-2022 Hematocrit (Bld) [Volume fraction] 36.0 % 37-47 [facility] Laboratory - Chemistry and C hemistry - challengeOrdered By: Dr. Hidalgo on 02-25-2022 ALP [Catalytic activity/Vol] 120 U/L 45-117 [facility] ALT [Catalytic activity/Vol] 37 U/L 13-56 [facility] CO2 [Moles/Vol] 24.0 mmol/L 21.0-32.0 [facility] Cobalamin (Vitamin B12) [Mass/Vol] 428 pg/mL 211-911 [facility] Globulin (S) [Mass/Vol] 4.1 g/dL 2.2-4.2 [facility] Urea nitrogen/Creatinine [Mass ratio] 15.9 mg/mg 10-20 [facility] Laboratory - Hematology and Cell countsOrdered By: Dr. Hidalgo on 02-25-2022 Erythrocyte distribution width (RBC) [Entitic vol] 45.1 fL 35.1-43.9 [facility] Erythrocyte distribution width (RBC) [Ratio] 13.1 % 11.6-14.6 [facility] MCH (RBC) [Entitic mass] 30.4 pg 27.0-32.0 [facility] MCHC Auto (RBC) [Mass/Vol]Or dered By: Dr. Hidalgo on 02-25-2022 MCHC (RBC) [Mass/Vol] 32.2 g/dL 32-36 [facility] No Panel InformationOrdered By: Dr. Hidalgo on 02-25-2022 Estimated GFR (MDRD) Amer 64 mL/min >60 [facility] Comment on above: GFR Calc Estimated GFR (MDRD) Non-Af Amer 53 mL/min >60 [facility] Comment on above: Non- GFR Calc Free Lambda Light Chains, Quant 40.0 mg/L 5.7-26.3 [facility] Thyroid Stimulating Hormone (TSH) 3.78 uIU/mL 0.358-3.74 [facility] Whole Blood Vitamin B1 Level 93.0 nmol/L 66.5-200.0 [facility] Comment on above: Performed at: [address] [id number] Director: Grant Baires PhD, Phone: [phone] at: [facility] [id number] Director: Kota Wallace MD, Phone: [phone] Platelets bldOrdered By: Dr. Hidalgo on 02-25-2022 Platelets (Bld) [#/Vol] 131 10*3/uL 150-450 [facility] Serum immunoglobulin kappa l ight chains/immunoglobulin lambda light chains mass ratioOrdered By: Dr. Hidalgo on 02-25-2022 Immunoglobulin light chains.kappa/Immunoglob ulin light chains.lambda (S) [Mass ratio] 1.75 0.26-1.65 [facility] Serum or plasma albumin nick urement (mass/volume)Ordered By: Dr. Hidalgo on 02-25-2022 Albumin [Mass/Vol] 3.3 g/dL 3.2-5.0 [facility] Serum or plasma albumin/glob ulin mass ratioOrdered By: Dr. Hidalgo on 02-25-2022 Albumin/Globulin [Mass ratio] 0.8 {ratio} 0.9-2.4 [facility] Serum or plasma calcium nick urement (mass/volume)Ordered By: Dr. Hidalgo on 02-25-2022 Calcium [Mass/Vol] 8.8 mg/dL 8.5-10.1 [facility] Serum or plasma creatinine m easurement (mass/volume)Ordered By: Dr. Hidalgo on 02-25-2022 Creatinine [Mass/Vol] 1.07 mg/dL 0.55-1.02 [facility] Comment on above: The validity of the calculated GFR & GFRAA in patients over 70 years has not been determined. Clinical correlation is essential. Serum or plasma folate measu rement (mass/volume)Ordered By: Dr. Hidalgo on 02-25-2022 Folate [Mass/Vol] 13.50 ng/mL 3.1-55.4 [facility] Serum or plasma immunoglobul in kappa light chains measurement (mass/volume)Ordered By: Dr. Hidalgo on 02-25-2022 Immunoglobulin light chains.kappa [Mass/Vol] 69.8 mg/L 3.3-19.4 [facility] Serum or plasma urea nitroge n measurement (mass/volume)Ordered By: Dr. Hidalgo on 02-25-2022 Urea nitrogen [Mass/Vol] 17 mg/dL 7-18 [facility] Thin prep Papanicolaou smear with manual screeningOrdered By: Dr. Hidalgo on 02-25-2022 Thin prep Papanicolaou smear with manual screening 35 U/L 15-37 [facility] Thin prep Papanicolaou smear with manual screening 6 5-15 [facility] Basophil percentageOrdered B y: Dr. Arceo on 01-30-2022 Bilirubin [Mass/Vol] 0.50 mg/dL 0.20-1.00 [facility] Comment on above: For patients on eltr ombopag therapy, use of Dimension [place] TBIL is not recommended. Chloride [Moles/Vol] 110 mmol/L 98-107 [facility] Glucose [Mass/Vol] 125 mg/dL 74-106 [facility] Comment on above: Fasting Glucose resu lt from 100 to 125 mg/dL suggests IMPAIRED HOMEOSTASIS per A.D.A. criteria. Potassium [Moles/Vol] 4.4 mmol/L 3.5-5.1 [facility] Protein [Mass/Vol] 8.1 g/dL 6.4-8.2 [facility] Sodium [Moles/Vol] 141 mmol/L 136-145 [facility] Erythrocyte sedimentation ra teOrdered By: Dr. Arceo on 01-30-2022 ESR (Bld) [Velocity] 31 mm/h 0-30 [facility] Laboratory - Chemistry and C hemistry - challengeOrdered By: Dr. Arceo on 01-30-2022 ALP [Catalytic activity/Vol] 116 U/L 45-117 [facility] ALT [Catalytic activity/Vol] 43 U/L 13-56 [facility] CO2 [Moles/Vol] 25.0 mmol/L 21.0-32.0 [facility] Globulin (S) [Mass/Vol] 4.7 g/dL 2.2-4.2 [facility] Urea nitrogen/Creatinine [Mass ratio] 15.9 mg/mg 10-20 [facility] No Panel InformationOrdered By: Dr. Arceo on 01-30-2022 Estimated GFR (MDRD) Amer 64 mL/min >60 [facility] Comment on above: GFR Calc Estimated GFR (MDRD) Non-Af Amer 53 mL/min >60 [facility] Comment on above: Non- GFR Calc Serum or plasma C reactive p rotein measurement (mass/volume)Ordered By: Dr. Arceo on 01-30-2022 CRP [Mass/Vol] mg/L 0.0-3.0 [facility] Comment on above: C-Reactive Protein ( CRP) provides useful information for thediagnosis, therapy and monitoring of inflammatory processesand associated diseases. For the evaluation of Relative Riskfor Cardiovascular Disease, a High Sensitivity CRP (HSCRP)should be ordered. Serum or plasma albumin nick urement (mass/volume)Ordered By: Dr. Arceo on 01-30-2022 Albumin [Mass/Vol] 3.4 g/dL 3.2-5.0 [facility] Serum or plasma albumin/glob ulin mass ratioOrdered By: Dr. Arceo on 01-30-2022 Albumin/Globulin [Mass ratio] 0.7 {ratio} 0.9-2.4 [facility] Serum or plasma calcium nick urement (mass/volume)Ordered By: Dr. Arceo on 01-30-2022 Calcium [Mass/Vol] 9.0 mg/dL 8.5-10.1 [facility] Serum or plasma creatinine m easurement (mass/volume)Ordered By: Dr. Arceo on 01-30-2022 Creatinine [Mass/Vol] 1.07 mg/dL 0.55-1.02 [facility] Comment on above: The validity of the calculated GFR & GFRAA in patients over 70 years has not been determined. Clinical correlation is essential. Serum or plasma urea nitroge n measurement (mass/volume)Ordered By: Dr. Arceo on 01-30-2022 Urea nitrogen [Mass/Vol] 17 mg/dL 7-18 [facility] Serum or plasma uric acid me asurement (mass/volume)Ordered By: Dr. Arceo on 01-30-2022 Urate [Mass/Vol] 5.9 mg/dL 2.6-6.0 [facility] Comment on above: The drugs N-Acetylcy steine and Metamizole may falsely depress this assay. Thin prep Papanicolaou smear with manual screeningOrdered By: Dr. Arceo on 01-30-2022 Thin prep Papanicolaou smear with manual screening 41 U/L 15-37 [facility] Thin prep Papanicolaou smear with manual screening 6 5-15 [facility] Basophil percentageon 2021 Cholesterol [Mass/Vol] 157 mg/dL <200 [facility] Work Phone: Comment on above: <200 mg/dL Desirable 200-240 mg/dL Borderline >240 mg/dL High Risk Triglyceride [Mass/Vol] 135 mg/dL <199 [facility] Work Phone: Comment on above: The drugs N-Acetylcy steine and Metamizole may falsely depress this assay.Serum Triglycerides Reference Interval Normal <150 mg/dL Borderline high 150 - 199 mg/dL High 200 - 499 mg/dL Very High > or = 500 mg/dL Glucose Glucometer (BldC) [M ass/Vol]on 09-10-2021 Glucose [Mass/Vol] 292 mg/dL 74-106 [facility] Work Phone: Comment on above: MANAGEMENT OF PATIEN T CARE PER NURSING PROTOCOL Serum or plasma cholesterol in HDL measurement (mass/volume)on 09-10-2021 Cholesterol in HDL [Mass/Vol] 33 mg/dL >40 [facility] Work Phone: Comment on above: The drugs N-Acetylcy steine and Metamizole may falsely depress this assay. Reference Range HDL <40 mg/dL Low HDL Cholesterol HDL >or= 60 mg/dL High HDL Cholesterol Serum or plasma cholesterol in VLDL measurement (mass/volume)on 09-10-2021 Cholesterol in VLDL [Mass/Vol] 27 mg/dL 5-40 [facility] Work Phone: Serum or plasma low density lipoprotein (LDL) cholesterol measurement (mass/volume)on 09-10-2021 Cholesterol in LDL [Mass/Vol] 97 mg/dL 0-130 [facility] Work Phone: [phone] Absolute lymphocyte counton 09-09-2021 Lymphocytes Auto (Unsp spec) [#/Vol] 0.74 10*3/uL 0.83-4.51 [facility] Work Phone: [phone] Basophil percentageon 2021 Basophils/100 WBC (Bld) 1.0 % 0-1 [facility] Work Phone: Bilirubin [Mass/Vol] 0.90 mg/dL 0.20-1.00 [facility] Work Phone: Comment on above: For patients on eltr ombopag therapy, use of Dimension [place] TBIL is not recommended. Chloride [Moles/Vol] 106 mmol/L 98-107 [facility] Work Phone: Eosinophils/100 WBC (Bld) 1.5 % 0-5 [facility] Work Phone: Glucose [Mass/Vol] 254 mg/dL 74-106 [facility] Work Phone: Comment on above: Glucose result great er than or equal to 200 mg/dLsuggests DIABETES MELLITUS per A.D.A. criteria. Neutrophils (Bld) [#/Vol] 2.9 10*3/uL 2.0-7.7 [facility] Work Phone: Neutrophils/100 WBC (Bld) 71.7 % 47-70 [facility] Work Phone: Potassium [Moles/Vol] 3.9 mmol/L 3.5-5.1 [facility] Work Phone: Protein [Mass/Vol] 7.9 g/dL 6.4-8.2 [facility] Work Phone: Sodium [Moles/Vol] 139 mmol/L 136-145 [facility] Work Phone: WBC (Bld) [#/Vol] 4.0 10*3/uL 4.4-11.0 [facility] Work Phone: Blood erythrocytes count (nu mber/volume)on 09-09-2021 RBC (Bld) [#/Vol] 4.41 10*6/uL 4.2-5.4 [facility] Work Phone: Blood hemoglobin measurement (mass/volume)on 09-09-2021 Hemoglobin (Bld) [Mass/Vol] 14.2 g/dL 12.0-15.0 [facility] Work Phone: Blood lymphocytes/100 leukoc yteson 09-09-2021 Lymphocytes/100 WBC (Bld) 18.5 % 19-41 [facility] Work Phone: Blood monocytes/100 leukocyt eson 09-09-2021 Monocytes/100 WBC (Bld) 6.5 % 0-10 [facility] Work Phone: Blood platelet mean volumeon 09-09-2021 Platelet mean volume (Bld) [Entitic vol] 11.1 fL 6.2-12.0 [facility] Work Phone: Determination of erythrocyte mean corpuscular volume (MCV)on 09-09-2021 MCV (RBC) [Entitic vol] 93.0 fL 81-99 [facility] Work Phone: Hematocrit Auto (Bld) [Volum e fraction]on 09-09-2021 Hematocrit (Bld) [Volume fraction] 41.0 % 37-47 [facility] Work Phone: INR in Blood by Coagulation assayon 09-09-2021 INR Coag (Bld) [Relative time] 1.2 {INR} [facility] Work Phone: Laboratory - Chemistry and C hemistry - challengeon 09-09-2021 ALP [Catalytic activity/Vol] 100 U/L 45-117 [facility] Work Phone: ALT [Catalytic activity/Vol] 40 U/L 13-56 [facility] Work Phone: CO2 [Moles/Vol] 24.0 mmol/L 21.0-32.0 [facility] Work Phone: Globulin (S) [Mass/Vol] 4.6 g/dL 2.2-4.2 [facility] Work Phone: Urea nitrogen/Creatinine [Mass ratio] 14.6 mg/mg 10-20 [facility] Work Phone: Laboratory - Coagulationon 0 09-09-2021 PT Coag (PPP) [Time] 14.7 s 11.7-14.9 [facility]: [phone] Laboratory - Hematology and Cell countson 09-09-2021 Erythrocyte distribution width (RBC) [Entitic vol] 44.1 fL 35.1-43.9 [facility] Work Phone: [phone] Erythrocyte distribution width (RBC) [Ratio] 13.0 % 11.6-14.6 [facility] Work Phone: [phone] Immature granulocytes/100 WBC (Bld) 0.800 % 0.0-0.9 [facility] Work Phone: [phone] Comment on above: IG% - Immature Granu locytes (promyelocytes, myelocytes and metamyelocytes) > 1% indicates that a LEFT SHIFT is Present. MCH (RBC) [Entitic mass] 32.2 pg 27.0-32.0 [facility] Work Phone: [phone] Nucleated RBC/100 WBC (Bld) [Ratio] 0 % 0-5 [facility] Work Phone: [phone] MCHC Auto (RBC) [Mass/Vol]on 09-09-2021 MCHC (RBC) [Mass/Vol] 34.6 g/dL 32-36 [facility] Work Phone: [phone] No Panel Informationon 09-09 Troponin I High Sensitivity 8 pg/mL 3.0-54.0 [facility] Work Phone: [phone] Comment on above: Please Note: New Kelsi t Units and Gender Specific Reference Ranges. For more information see Policy Stat Procedure [place] High Sensitivity Troponin (TNIH) and attachments. Estimated Creatinine Clearance Calc 36.44 ml/min [facility] Work Phone: [phone] Estimated GFR (MDRD) Amer 72 mL/min >60 [facility] Work Phone: [phone] Comment on above: GFR Calc Estimated GFR (MDRD) Non-Af Amer 60 mL/min >60 [facility] Work Phone: [phone] Comment on above: Non- GFR Calc Troponin I High Sensitivity 7 pg/mL 3.0-54.0 [facility] Work Phone: [phone] Comment on above: Please Note: New Kelsi t Units and Gender Specific Reference Ranges. For more information see Policy Stat Procedure [place] High Sensitivity Troponin (TNIH) and attachments. Platelets bldon 09-09-2021 Platelets (Bld) [#/Vol] 128 10*3/uL 150-450 [facility] Work Phone: Serum or plasma albumin nick urement (mass/volume)on 09-09-2021 Albumin [Mass/Vol] 3.3 g/dL 3.2-5.0 [facility] Work Phone: [phone] Serum or plasma albumin/glob ulin mass ratioon 09-09-2021 Albumin/Globulin [Mass ratio] 0.7 {ratio} 0.9-2.4 [facility] Work Phone: [phone] Serum or plasma calcium nick urement (mass/volume)on 09-09-2021 Calcium [Mass/Vol] 9.0 mg/dL 8.5-10.1 [facility] Work Phone: [phone] Serum or plasma creatinine m easurement (mass/volume)on 09-09-2021 Creatinine [Mass/Vol] 0.96 mg/dL 0.55-1.02 [facility] Work Phone: Comment on above: The validity of the calculated GFR & GFRAA in patients over 70 years has not been determined. Clinical correlation is essential. Serum or plasma urea nitroge n measurement (mass/volume)on 09-09-2021 Urea nitrogen [Mass/Vol] 14 mg/dL 7-18 [facility] Work Phone: [phone] Thin prep Papanicolaou smear with manual screeningon 09-09-2021 Thin prep Papanicolaou smear with manual screening 37 U/L 15-37 [facility] Work Phone: [phone] Thin prep Papanicolaou smear with manual screening 9 5-15 [facility] Work Phone: [phone] Whole blood hemoglobin A1c/t otal hemoglobin ratio (mass fraction)on 09-09-2021 HbA1c (Bld) [Mass fraction] 7.9 % 3.8-5.6 [facility] Work Phone: Comment on above: Normal < 5.7 % Predi abetic 5.7 - 6.4 % Diabetic >or= 6.5 % Please note range changes. Vital Signs Date Time Vital Sign Value Performing Clinician Faci lity 10-25-2024 14:12-0400 Body temperature 97.6 [degF] Dr. Desiree Tapia MD Work Phone: [facility] 10-25-2024 14:12-0400 Diastolic blood pressure 47 mm[Hg] Dr. Desiree Tapia MD Work Phone: [facility] 10-25-2024 14:12-0400 Heart rate 72 /min Dr. Desiree Tapia MD Work Phone: [facility] 10-25-2024 14:12-0400 Respiratory rate 16 /min Dr. Desiree Tapia MD Work Phone: [facility] 10-25-2024 14:12-0400 SaO2% (BldA) [Mass fraction] 94 % Dr. Desiree Tapia MD Work Phone: [facility] 10-25-2024 14:12-0400 Systolic blood pressure 136 mm[Hg] Dr. Desiree Tapia MD Work Phone: [facility] 10-25-2024 12:27-0400 Body height 154.[address] Desiree Tapia MD Work Phone: [facility] 10-25-2024 12:27-0400 Body mass index (BMI) [Ratio] 28.4 kg/m2 Dr. Desiree Tapia MD Work Phone: [facility] 10-25-2024 12:27-0400 Body weight 68.[address] Desiree Tapia MD Work Phone: [facility] 10-21-2024 08:51-0400 Diastolic blood pressure 76 mm[Hg] Dr. Desiree Tapia MD Work Phone: 8(773)728-014065 [place] [address] 10-21-2024 08:51-0400 Heart rate 82 /min Dr. Desiree Tapia MD Work Phone: [facility] 10-21-2024 08:51-0400 Systolic blood pressure 151 mm[Hg] Dr. Desiree Tapia MD Work Phone: [facility] 06-28-2024 17:29-0400 Diastolic blood pressure 60 mm[Hg] Dr. Desiree Tapia MD Work Phone: [facility] 06-28-2024 17:29-0400 Systolic blood pressure 154 mm[Hg] Dr. Desiree Tapia MD Work Phone: [facility] 06-28-2024 14:04-0400 Body height 154.[address] Desiree Tapia MD Work Phone: [facility] 06-28-2024 14:04-0400 Body mass index (BMI) [Ratio] 27.5 kg/m2 Dr. Desiree Tapia MD Work Phone: [facility] 06-28-2024 14:04-0400 Body temperature 97.9 [degF] Dr. Desiree Tapia MD Work Phone: [facility] 06-28-2024 14:04-0400 Body weight 65.[address] Desiree Tapia MD Work Phone: [facility] 06-28-2024 14:04-0400 Diastolic blood pressure 70 mm[Hg] Dr. Desiree Tapia MD Work Phone: [facility] 06-28-2024 14:04-0400 Heart rate 79 /min Dr. Desiree Tapia MD Work Phone: [facility] 06-28-2024 14:04-0400 Respiratory rate 16 /min Dr. Desiree Tapia MD Work Phone: [facility] 06-28-2024 14:04-0400 SaO2% (BldA) [Mass fraction] 96 % Dr. Desiree Tapia MD Work Phone: [facility] 06-28-2024 14:04-0400 Systolic blood pressure 172 mm[Hg] Dr. Desiree Tapia MD Work Phone: [facility] 06-28-2024 13:05-0400 Body height 154.[address] Desiree Tapia MD Work Phone: 9(424)394-462054 [place] [address] 06-28-2024 13:05-0400 Body mass index (BMI) [Ratio] 27.3 kg/m2 Dr. Desiree Tapia MD Work Phone: 8(428)287-382154 [place] [address] 06-28-2024 13:05-0400 Body temperature 98.6 [degF] Dr. Desiree Tapia MD Work Phone: 0(033)523-707454 [place] [address] 06-28-2024 13:05-0400 Body weight 65.[address] Desiree Tapia MD Work Phone: [facility] 06-28-2024 13:05-0400 Diastolic blood pressure 62 mm[Hg] Dr. Desiree Tapia MD Work Phone: [facility] 06-28-2024 13:05-0400 Heart rate 83 /min Dr. Desiree Tapia MD Work Phone: [facility] 06-28-2024 13:05-0400 Respiratory rate 16 /min Dr. Desiree Tapia MD Work Phone: [facility] 06-28-2024 13:05-0400 SaO2% (BldA) [Mass fraction] 96 % Dr. Desiree Tapia MD Work Phone: [facility] 06-28-2024 13:05-0400 Systolic blood pressure 175 mm[Hg] Dr. Desiree Tapia MD Work Phone: 1(202)641-506254 [place] [address] 04-19-2024 13:18-0400 Body temperature 98 [degF] Dr. Desiree Tapia MD Work Phone: 2(462)253-347365 [place] [address] 04-19-2024 13:18-0400 Body weight 66.[address] Desiree Tapia MD Work Phone: 9(794)848-979365 [place] [address] 04-19-2024 13:18-0400 Diastolic blood pressure 62 mm[Hg] Dr. Desiree Tapia MD Work Phone: 3(858)971-646954 [place] [address] 04-19-2024 13:18-0400 Heart rate 78 /min Dr. Desiree Tapia MD Work Phone: 0(627)334-286854 [place] [address] 04-19-2024 13:18-0400 Respiratory rate 16 /min Dr. Desiree Tapia MD Work Phone: 3(589)278-316054 [place] [address] 04-19-2024 13:18-0400 SaO2% (BldA) [Mass fraction] 97 % Dr. Desiree Tapia MD Work Phone: 0(624)105-111554 [place] [address] 04-19-2024 13:18-0400 Systolic blood pressure 153 mm[Hg] Dr. Desiree Tapia MD Work Phone: 3(049)492-697354 [place] [address] 03-22-2024 12:52-0500 Body height 154.[address] Desiree Tapia MD Work Phone: 5(983)627-232754 [place] [address] 03-22-2024 12:52-0500 Body mass index (BMI) [Ratio] 27 kg/m2 Dr. Desiree Tapia MD Work Phone: 9(802)646-937154 [place] [address] 03-22-2024 12:52-0500 Body temperature 98.4 [degF] Dr. Desiree Tapia MD Work Phone: 4(385)981-972854 [place] [address] 03-22-2024 12:52-0500 Body weight 64.[address] Desiree Tapia MD Work Phone: 9(547)772-100754 [place] [address] 03-22-2024 12:52-0500 Diastolic blood pressure 62 mm[Hg] Dr. Desiree Tapia MD Work Phone: [facility] 03-22-2024 12:52-0500 Heart rate 85 /min Dr. Desiree Tapia MD Work Phone: [facility] 03-22-2024 12:52-0500 Respiratory rate 16 /min Dr. Desiree Tapia MD Work Phone: [facility] 03-22-2024 12:52-0500 SaO2% (BldA) [Mass fraction] 96 % Dr. Desiree Tapia MD Work Phone: [facility] 03-22-2024 12:52-0500 Systolic blood pressure 148 mm[Hg] Dr. Desiree Tapia MD Work Phone: [facility] 01-04-2024 08:45-0500 Body temperature 97.1 [degF] Dr. Desiree Tapia MD Work Phone: [facility] 01-04-2024 08:45-0500 Diastolic blood pressure 78 mm[Hg] Dr. Desiree Tapia MD Work Phone: [facility] 01-04-2024 08:45-0500 Heart rate 70 /min Dr. Desiree Tapia MD Work Phone: [facility] 01-04-2024 08:45-0500 Respiratory rate 18 /min Dr. Desiree Tapia MD Work Phone: [facility] 01-04-2024 08:45-0500 SaO2% (BldA) [Mass fraction] 96 % Dr. Desiree Tapia MD Work Phone: [facility] 01-04-2024 08:45-0500 Systolic blood pressure 117 mm[Hg] Dr. Desiree Tapia MD Work Phone: [facility] 01-04-2024 07:29-0500 Body mass index (BMI) [Ratio] 28.8 kg/m2 Dr. Desiree Tapia MD Work Phone: [facility] 01-04-2024 07:29-0500 Body weight 69.[address] Desiree Tapia MD Work Phone: [facility] 10-30-2022 10:58-0400 Body height 154.[address] Desiree Tapia Work Phone: [facility] 10-30-2022 10:58-0400 Body mass index (BMI) [Ratio] 28.5 kg/m2 Dr. Desiree Tapia Work Phone: [facility] 10-30-2022 10:58-0400 Body temperature 98.6 [degF] Dr. Desiree Tapia Work Phone: [facility] 10-30-2022 10:58-0400 Body weight 68.[address] Desiree Tapia Work Phone: [facility] 10-30-2022 10:58-0400 Diastolic blood pressure 52 mm[Hg] Dr. Desiree Tapia Work Phone: [facility] 10-30-2022 10:58-0400 Heart rate 81 /min Dr. Desiree Tapia Work Phone: [facility] 10-30-2022 10:58-0400 Respiratory rate 17 /min Dr. Desiree Tapia Work Phone: [facility] 10-30-2022 10:58-0400 SaO2% (BldA) [Mass fraction] 94 % Dr. Desiree Tapia Work Phone: [facility] 10-30-2022 10:58-0400 Systolic blood pressure 126 mm[Hg] Dr. Desiree Tapia Work Phone: [facility] 2022 10:07-0400 Body weight 68.[address] Desiree Tapia Work Phone: [facility] 2022 10:07-0400 Diastolic blood pressure 56 mm[Hg] Dr. Desiree Tapia Work Phone: [facility] 2022 10:07-0400 Heart rate 88 /min Dr. Desiree Tapia Work Phone: [facility] 2022 10:07-0400 Respiratory rate 18 /min Dr. Desiree Tapia Work Phone: [facility] 2022 10:07-0400 SaO2% (BldA) [Mass fraction] 99 % Dr. Desiree Tapia Work Phone: [facility] 2022 10:07-0400 Systolic blood pressure 142 mm[Hg] Dr. Desiree Tapia Work Phone: [facility] 02-20-2022 08:55-0500 Body height 154.[address] Desiree Tapia Work Phone: [facility] 02-20-2022 08:55-0500 Body mass index (BMI) [Ratio] 28.8 kg/m2 Dr. Desiree Tapia Work Phone: [facility] 02-20-2022 08:55-0500 Body temperature 98.4 [degF] Dr. Desiree Tapia Work Phone: [facility] 02-20-2022 08:55-0500 Body weight 69.[address] Desiree Tapia Work Phone: [facility] 02-20-2022 08:55-0500 Diastolic blood pressure 60 mm[Hg] Dr. Desiree Tapia Work Phone: [facility] 02-20-2022 08:55-0500 Heart rate 91 /min Dr. Desiree Tapia Work Phone: [facility] 02-20-2022 08:55-0500 Respiratory rate 16 /min Dr. Desiree Tapia Work Phone: [facility] 02-20-2022 08:55-0500 SaO2% (BldA) [Mass fraction] 96 % Dr. Desiree Tapia Work Phone: [facility] 02-20-2022 08:55-0500 Systolic blood pressure 160 mm[Hg] Dr. Desiree Tapia Work Phone: [facility] 09-10-2021 12:35-0400 Body temperature 98.6 [degF] Dr. Desiree Tapia Work Phone: [facility] Work Phone: 09-10-2021 12:35-0400 Diastolic blood pressure 61 mm[Hg] Dr. Desiree Tapia Work Phone: [facility] Work Phone: 09-10-2021 12:35-0400 Heart rate 80 /min Dr. Desiree Tapia Work Phone: [facility] Work Phone: 09-10-2021 12:35-0400 Respiratory rate 18 /min Dr. Desiree Tapia Work Phone: [facility] Work Phone: 09-10-2021 12:35-0400 SaO2% (BldA) [Mass fraction] 98 % Dr. Desiree Tapia Work Phone: [facility] Work Phone: 09-10-2021 12:35-0400 Systolic blood pressure 151 mm[Hg] Dr. Desiree Tapia Work Phone: [facility] Work Phone: 09-09-2021 16:02-0400 Body mass index (BMI) [Ratio] 27.8 kg/m2 Dr. Desiree Tapia Work Phone: [facility] Work Phone: 09-09-2021 15:09-0400 Body height 154.[address] Desiree Tapia Work Phone: [facility] Work Phone: 09-09-2021 15:09-0400 Body weight 66.[address] Desiree Tapia Work Phone: [facility] Work Phone: 09-09-2021 13:43-0400 Body temperature 97.8 [degF] [facility] Work Phone: 09-09-2021 13:43-0400 Diastolic blood pressure 48 mm[Hg] [facility] Work Phone: 09-09-2021 13:43-0400 Heart rate 89 /min [facility] Work Phone: 09-09-2021 13:43-0400 Respiratory rate 20 /min [facility] Work Phone: 09-09-2021 13:43-0400 SaO2% (BldA) [Mass fraction] 96 % [facility] Work Phone: 09-09-2021 13:43-0400 Systolic blood pressure 156 mm[Hg] [facility] Work Phone: 09-09-2021 11:41-0400 Body height 157 cm [facility] Work Phone: 09-09-2021 11:41-0400 Body mass index (BMI) [Ratio] 27.2 kg/m2 [facility] Work Phone: 09-09-2021 11:41-0400 Body weight 67.13 kg [facility] Work Phone: Encounters Encounter Date Encounter Type Care Provider Facility Start: 11-25-2024 ambulatory Moy Ramos Facility :[facility] Start: 11-22-2024 ambulatory Arya Argueta Facility:[facility] Start: 11-03-2024 End: 11-03-2024 Patient encounter procedure Moygin Ramos [facility] Work Phone: Start: 11-03-2024 End: 11-03-[address] Desiree Tapia MD Work Phone: [facility] G[facility] Start: 10-25-2024 Non-patient / Non-visit Moygin Ramos [facility] Start: 10-25-2024 End: 10-25-2024 Admission to same day surgery center Moy [facility] -Endoscopy Work Phone: Start: 10-25-2024 End: 10-25-[address] Desiree Tapia MD Work Phone: -Endoscopy Start: 10-21-2024 End: 10-21-2024 Patient encounter procedure Lesly BRADFORD -[facility] Work Phone: Start: 10-21-2024 End: 10-21-[address] Desiree Tapia MD Work Phone: [facility] G[facility] Start: 10-21-2024 End: 10-21-2024 ambulatory Desiree Tapia Facility:[facility] Start: 10-04-2024 End: 10-04-[address] Desiree Tapia MD Work Phone: -Laboratory [facility]ly[facility] Oneil [facility] Start: 10-04-2024 End: 10-04-[address] Desiree Tapia MD -Laboratory [facility] One[facility] Start: 10-04-2024 End: 10-04-2024 ambulatory Desiree Tapia Facility:[facility] Start: 08-29-2024 End: 08-29-[address] Desiree Tapia MD Work Phone: -Radiology [facility] Start: 08-29-2024 End: 08-29-[address] Surendra Hidalgo MD -Radiology [facility] Work Phone: Start: 08-29-2024 End: 08-29-2024 ambulatory Desiree Tapia Facility:[facility] Start: 06-28-2024 End: 06-28-[address] Desiree Tapia MD Work Phone: [facility] Work Phone: Start: 06-28-2024 End: 06-28-2024 Patient encounter procedure Miguel BRADFORD -[facility] Work Phone: Start: 06-28-2024 End: 06-28-[address] Surendra Hidalgo MD -[facility] Work Phone: Start: 06-28-2024 End: 06-28-[address] Desiree Tapia MD Work Phone: [facility] Work Phone: Start: 04-19-2024 End: 04-19-2024 Patient encounter procedure Haley BRADFORD -[facility] Work Phone: Start: 04-19-2024 End: 04-19-2024 ambulatory Desiree Tapia Facility:[facility] Start: 04-19-2024 Non-patient / Non-visit Dr. Arya Argueta MD -[facility] Start: 04-19-2024 End: 04-19-[address] Desiree Tapia MD Work Phone: [facility] Work Phone: Start: 04-19-2024 End: 04-19-2024 Patient encounter procedure Haley BRADFORD -Cardiovascular Services Work Phone: Start: 04-19-2024 End: 04-19-2024 ambulatory Desiree Tapia Facility:[facility] Start: 04-01-2024 End: 04-01-[address] Desiree Tapia MD Work Phone: [facility] Work Phone: Start: 04-01-2024 End: 04-01-[address] Desiree Tapia MD -Laboratory, [facility] Start: 04-01-2024 End: 04-01-[facility] Start: 03-22-2024 End: 03-22-[address] Surendra Hidalgo MD -[facility] Work Phone: Start: 03-22-2024 End: 03-22-2024 ambulatory [facility] Facility:[facility] Start: 01-11-2024 End: 01-11-[address] Desiree Tapia MD -Laboratory, Specimen Work Phone: Start: 01-11-2024 End: 01-11-2024 ambulatory [facility] Facility:[facility] Start: 01-04-2024 Non-patient / Non-visit Moy Ramos DO -[facility] Start: 01-04-2024 End: 01-04-2024 Admission to same day surgery center Moy Ramos DO -Endoscopy Work Phone: Start: 01-04-2024 End: 01-04-2024 ambulatory [facility] Facility:[facility] Start: 11-26-2023 End: 11-26-2023 ambulatory [facility] Facility:[facility] Start: 02-23-2023 Non-patient / Non-visit Dr. Desiree Tapia Work Phone: [facility] Start: 02-23-2023 End: 02-23-[address] Desiree Tapia Work Phone: [facility] Work Phone: Start: 02-23-2023 End: 02-23-[address] Desiree Tapia Work Phone: [facility]-Cardiovascular Services Work Phone: Start: 11-25-2022 End: 11-25-[address] Desiree Tapia Work Phone: [facility] Work Phone: Start: 11-25-2022 End: 11-25-[address] Desiree Tapia Work Phone: [facility]-Sleep Lab Work Phone: Start: 10-30-2022 End: 10-30-[address] Desiree Tapia Work Phone: [facility] Work Phone: Start: 06-11-2022 End: 06-11-[address] Desiree Tapia Work Phone: [facility] Work Phone: Start: 06-11-2022 End: 06-11-[address] Desiree Tapia Work Phone: [facility] Start: 05-20-2022 End: 05-20-[address] Desiree Tapia Work Phone: [facility]-Laboratory Start: 2022 End: [address] Desiree Tapia Work Phone: [facility] Start: 04-30-2022 Non-patient / Non-visit Dr. Desiree Tapia Work Phone: [facility] Start: 04-30-2022 End: 04-30-[address] Desiree Tapia Work Phone: [facility] Work Phone: Start: 04-30-2022 End: 04-30-[address] Desiree Tapia Work Phone: [facility]-Pulmonary Services/Neurology Start: 04-08-2022 End: 04-08-[address] [facility] Start: 02-25-2022 End: 02-25-[address] Desiree Tapia Work Phone: [facility] Work Phone: Start: 02-25-2022 End: 02-25-[address] Desiree Tapia Work Phone: [facility]-Cardiovascular Services Start: 02-25-2022 Non-patient / Non-visit Dr. Desiree Tapia Work Phone: [facility] Start: 02-20-2022 End: 02-20-[address] Desiree Tapia Work Phone: [facility] Start: 01-30-2022 End: 01-30-2022 ambulatory [facility] Work Phone: Start: 01-30-2022 End: 01-30-2022 [facility] Start: 09-16-2021 End: 12-10-2021 ambulatory DESIREE TAPIA Facility:[facility] Start: 09-10-2021 Non-patient / Non-visit Dr. Desiree Tapia Work Phone: [facility] Start: 09-09-2021 Non-patient / Non-visit Dr. Desiree Tapia Work Phone: [facility] Start: 09-09-2021 End: 09-10-2021 Evaluation and management of inpatient [facility]-Progressive Care Unit Start: 10-14-2017 End: 10-14-2017 [facility] Procedures Date Procedure Procedure Detail Performing Clinician Start: 10-25-[address] Desiree owusu MD Work Phone: Start: 10-04-2024 Total iron binding capacity measurement Dr. Desiree Tapia MD Work Phone: Start: 10-04-2024 Urine microalbumin/creatinine ratio measurement Dr. Desiree Tapia MD Work Phone: Start: 08-29-[address] Desiree Tapia MD Work Phone: Start: 04-01-2024 Measurement of renal function Dr. Desiree aTpia MD Work Phone: Comment on above: GFR [...] Date Care Activity Detail Author Start: 10-25-2024 Enteroscopy > 2nd prtn w/control bleeding SMALL BOWEL ENDOSCOPY [facility] Start: 10-25-2024 Patient discharge [facility] Start: 01-04-2024 Egd transoral biopsy single/multiple EGD BIOPSY SINGLE/MULTIPLE [facility] Start: 01-04-2024 Egd transoral control bleeding any method EGD CONTROL BLEEDING ANY [facility] Start: 01-04-2024 Patient discharge [facility] Start: 03-20-2022 Patient referral [facility] Work Phone: Start: 09-10-2021 Patient discharge [facility] Work Phone: Start: 09-10-2021 Cardiac event recording [facility] Work Phone: Start: 09-09-2021 Following clinical pathway protocol [facility] Work Phone: Start: 09-09-2021 Assessment of risk of venous thromboembolism [facility] Work Phone: Start: 09-09-2021 Cardiac monitoring [facility] Work Phone: Start: 09-09-2021 Care regimes management [facility] Work Phone: Start: 09-09-2021 Catheterization of vein [facility] Work Phone: Start: 09-09-2021 Continuous pulse oximetry [facility] Work Phone: Start: 09-09-2021 Elevation of head of bed [facility] Work Phone: Start: 09-09-2021 Exercises [facility] Work Phone: Start: 09-09-2021 Implementation of planned interventions [facility] Work Phone: Start: 09-09-2021 Insertion of catheter into peripheral vein [facility] Work Phone: Start: 09-09-2021 Measuring intake and output [facility] Work Phone: Start: 09-09-2021 Notification of physician [facility] Work Phone: Start: 09-09-2021 Oxygen therapy [facility] Work Phone: Start: 09-09-2021 Patient referral to dietitian [facility] Work Phone: Start: 09-09-2021 Providing care according to standard [facility] Work Phone: Start: 09-09-2021 Provision of activity privileges [facility] Work Phone: Start: 09-09-2021 Referral to occupational therapist [facility] Work Phone: Start: 09-09-2021 Referral to service [facility] Work Phone: Start: 09-09-2021 Speech therapy assessment [facility] Work Phone: Start: 09-09-2021 [facility] Work Phone: Start: 09-09-2021 Admission procedure [facility] Work Phone: Start: 09-09-2021 [facility] Work Phone: Antibody to lupus La protein measurement [facility] Work Phone: Antibody to SS-A measurement [facility] Work Phone: CBC W Auto Different ial panel - Blood [facility] Centromere protein B Ab [Units/volume] in Serum [facility] Work Phone: Chromatin Ab [Units/ volume] in Serum or Plasma [facility] Work Phone: Comprehensive metabo lic 2000 panel - Serum or Plasma [facility] DNA double strand Ab [Units/volume] in Serum [facility] Work Phone: Sarah-1 extractable nuc lear Ab [Units/volume] in Serum [facility] Work Phone: Nuclear Ab [Presence ] in Serum [facility] Work Phone: Patient referral [facility] Work Phone: [id number] extractable n uclear Ab [Units/volume] in Serum by Immunoassay [facility] Work Phone: Howell extractable nu clear Ab [Presence] in Serum [facility] Work Phone: US Carotid arteries [facility] US Carotid arteries [facility] [place] [facility] Immunizations Immunization Date Immunization Notes Care Provider Fa cility 05-24-2021 Covid (Pfizer) Dr. Desiree owusu Work Phone: [facility] 12-25-2020 Covid (Pfizer) Dr. Desiree owusu Work Phone: [facility] 05-10-2020 Covid (Pfizer) [facility] 04-19-2020 Covid (Pfizer) [facility] Payers Date Payer Category Payer Self-pay [id number] 2021 Private Health Insurance 101 [id number] 1945 Unknown [id number] 2.16.8 [id number] Medicare [id number] Medicare [id number] Unknown [id number] 2.16.8 40.1.606277.3.579.2.462 Unknown [id number] 2.16.8 40.1.098553.3.579.2.462 Unknown [id number] 2.16.8 40.1.225340.3.579.2.462 Unknown [id number] 2.16.8 40.1.570969.3.579.2.462 Unknown [id number] 2.16.8 40.1.959883.3.579.2.462 Unknown [id number] 2.16.8 40.1.692094.3.579.2.462 Unknown [id number] 2.16.8 40.1.319792.3.579.2.462 Unknown [id number] 2.16.8 40.1.044882.3.579.2.462 Unknown [id number] 2.16.8 40.1.864091.3.579.2.462 Unknown [id number] 2.16.8 40.1.654416.3.579.2.462 Unknown [id number] 2.16.8 40.1.936070.3.579.2.462 Unknown [id number] 2.16.8 40.1.837610.3.579.2.462 Unknown [id number] 2.16.8 40.1.452442.3.579.2.462 Unknown [id number] 2.16.8 40.1.512082.3.579.2.462 Unknown [id number] 2.16.8 40.1.294389.3.579.2.462 Unknown [id number] 2.16.8 40.1.511841.3.579.2.462 Unknown [id number] 2.16.8 40.1.981900.3.579.2.462 Unknown [id number] 2.16.8 40.1.824967.3.579.2.462 Unknown [id number] 2.16.8 40.1.272992.3.579.2.462 Unknown [id number] 2.16.8 40.1.322788.3.579.2.462 Unknown [id number] 2.16.8 40.1.770271.3.579.2.462 Social History Date Type Detail Facility Start: 09-09-2021 End: 10-30-2022 Tobacco smoking status WYIS Unknown if ever smoked [facility] Start: 1945 Sex Assigned At Female W [facility] Start: 09-10-2021 Non-smoker [facility] Start: 12-31-2023 End: 10-21-2024 Tobacco smoking status NHIS Never smoked tobacco (finding) [facility] Start: 04-14-2024 End: 04-28-2024 Sex Female (finding) [facility] Not [facility] Goals Date Patient Goal Desired Activity /State Functional Status Date Assessment Result Facility 09-10-2021 Functional status Ambulates [facility] Work Phone: Mental Status Date Assessment Result Facility 10-25-2024 Cognitive function Voice/Name [facility] Work Phone: 01-04-2024 Cognitive function Voice/Name;Touch/Shaki ng [facility] Work Phone: 09-10-2021 Cognitive function Voice/Name [facility] Work Phone: 09-09-2021 Cognitive function Voice/Name [facility] Work Phone: Clinical Notes 04-30-2022 to 10-25-2024 Note Date & Type Note Facility 10-25-2024 History and physical note Note Date/Time October 25, 2024 12:49pm [facility] Medical Records Department [address] [place] [address] History & Physical Exam 10/25/24 1247 MR#: [id number] Acct: [id number] Name: SANDIE ANGELES DAWSON Rep #:[id number] : 1945 79 From: Moy Friend DO PCP: Dr. Desiree Tapia MD Status:[facility] Location: [place] [address] HPI - General General Date of Admission: 10/25/24 Date of Service: 11/16/24 Chief Complaint: Anemia HPI Narrative SANDIE ANGELES, is a 79 F who presents with [...] 2 weeks ago. She denies black/tarry stool. [facility] Medical History Thyroid disease Post-menopausal Insulin dependent [...] in: other frequency: 1-2 times per week luna/scientologist: Mandaen seatbelt use: always ROS Constitutional Constitutional: Denies [...] the lowest her hemoglobin has been since 2012. Patient endorsing extreme fatigue, lightheadedness and shortness of breath on exertion. Denying black or tarry stool. I have ordered repeat CBC and CM pending result may have to refer [facility]. She was scheduled for EGD [...] Desiree Tapia MD; Moy Ramos DO~ Signed [facility] Work Phone: 1(231) 503-959609-16-2025 Consult note Author Margarita Gonzalez [facility] Note Date/Time October 25, 2024 12:44pm [facility] Medical Records Department [address] [place] [address] Pre-Anesthesia Evaluation 10/25/24 1237 MR#: [id number] Acct: [id number] Name: SANDIE ANGELES Rep #:[id number] : 1945 79 From: Margarita mckeon CRNA PCP: Dr. Desiree Tapia MD Status:REG SDC Y Race: C Location: [place] [address] ASA Classification* ASA Classification ASA Classification: 3 [...] 10/21/24 RBC 3.19 M/mm3 (4.2-5.4) L 10/21/24 09:10/21/24 Hgb 8.1 g/dL (12.0-15.0) L 10/21/24 09:05 [...] Procedure(s): EGD Anesthesia History Anesthesia History - target trimmer: Anesthesia History - target trimmer Hx Hospitalization No 10/21/24 11:31 Any Problems [...] am of surgery omeprazole PONV PONV - target trimmer: PONV - target trimmer Female Yes 10/21/24 11:31 HX of Motion [...] 10/25/24 12:27 Respiratory Assessment Respiratory Assessment - target trimmer: Respiratory Tract Infection Hx - target trimmer Hx Respiratory Tract Infection No 10/21/24 11:31 STOP Sleep Apnea STOP Sleep Apnea - target trimmer: STOP Sleep Apnea - target trimmer Hx Hypertension Yes: CONTROLLED WITH MED 10/21/24 [...] Tobacco Use History Tobacco Use History - target trimmer: Tobacco Use History - target trimmer Tobacco Use Non-smoker 09/10/21 10:00 Smoking Status Never smoker 10/21/24 11:31 Hx Tobacco Use No 10/21/24 11:31 Years Smoking Packs Smoked per Day Smoking Cessation Date was within the last 15 years Hx Smoking Cessation Date Hx Smoking Cessation No: patient doesn't smoke 10/21/24 11:31 Counseling Hematologic Medial History Hematologic Hx - target trimmer: Hematologic Medical Hx - in home 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 10/25/24 1244 <Electronically signed by Margarita davis CRNA> Date _ Margarita Gonzalez CRNA Cosigner Signature: Date CC: ~ Signed [facility] Work Phone: 1(331) 347-277509-16-2025 Consult note [facility] Medical Records Department [address] [place] [address] Anesthesia Postop Eval I 10/25/24 1352 MR#: [id number] Acct: [id number] Name: BRIDGETTESANDIE DAWSON Rep #:[id number] : 1945 79 From: Stanislav Altamirano PCP: Dr. Desiree Tapia MD Status:REG SDC Y Race: C Location: [place] [address] Anesthesia: Postop Eval I Current Vital Signs [...] Stanislav Chauhan Signature: Date CC: ~ Signed [facility]09-16-2025 Procedure note [facility] Medical Records Department [address] [place] [address] EGD Report MR#: [id number] Acct: [id number] Name: SANDIE ANGELES DAWSON Rep #:[id number] : 1945 79 From: Moy Ramos DO PCP: Dr. Desiree Tapia MD Status:REG SDC Patient Name: Sandie Angeles Procedure Date: 10/25/2024 1:23 PM Date of [...] present medications. Procedure Code(s): --- Professional --- 14306, Small intestinal endoscopy, enteroscopy beyond second portion of duodenum, not including ileum; with control of bleeding (eg, injection, bipolar cautery, unipolar cautery, laser, heater probe, stapler, plasma quality assurance specialist) CPT copyright 2021 [employer]. All rights reserved. The codes documented in this report are preliminary and upon orthopedic coder review may be revised to meet current compliance requirements. Moy Ramos DO 10/25/2024 1:53:07 PM This report has been signed electronically. Number of Addenda: 0 Note Initiated On: 10/25/2024 1:23 PM 10/25/24 1353 Date _ Moy Ramos DO Cosigner Signature: Date (if indicated) CC: Dr. Desiree Tapia MD; Moy Ramos DO ~ Date Dictated: 10/25/24 1323 Date Transcribed: Local Combination Truck Driver: RF Signed [facility]09-16-2025 Procedure note [facility] Medical Records Department [address] [place] [address] Provation Physician Letter MR#: [id number] Acct: [id number] Name: SANDIE ANGELES DAWSON Rep #:[id number] : 1945 79 From: Moy Ramos DO PCP: Dr. Desiree Tapia MD Status:REG [facility] 10/25/2024 Desiree Tapia [address] [address] Re : Upper GI endoscopy procedure for Sandie Zuritaruff Dear Dr. Tapia This procedure was performed [...] been signed electronically. 10/25/24 1353 Date _ Moy Priceignbilly Signature: Date (if indicated) CC: Dr. Desiree Tapia MD; Moy Ramos DO ~ Date Dictated: 10/25/24 1323 Date Transcribed: Local Combination Truck Driver: RF Signed [facility]09-16-2025 History and physical note [facility] Medical Records Department [address] [place] [address] History & Physical Exam 10/25/24 1247 MR#: [id number] Acct: [id number] Name: SANDIE ANGELES DAWSON Rep #:[id number] : 1945 79 From: Moy Ramos DO PCP: Dr. Desiree Tapia MD Status:REG [facility] Location: [address] HPI - General General Date of Admission: 10/25/24 Date of Service: 11/16/24 Chief Complaint: Anemia HPI Narrative SANDIE ANGELES, is a 79 F who presents with [...] 2 weeks ago. She denies black/tarry stool. [facility] Medical History Thyroid disease Post-menopausal Insulin dependent [...] in: other frequency: 1-2 times per week luna/scientologist: Mandaen seatbelt use: always ROS Constitutional Constitutional: Denies [...] pending result may have to refer her doctors hospital ED. She was scheduled for EGD [...] Desiree Tapia MD; Moy Ramos DO~ Signed [facility]09-16-2025 [facility] Medical Records Department [address] [place] [address] History Physical Exam 10/25/24 1247 MR#: [id number] Acct: [id number] Name: SANDIE ANGELES Rep #: [id number] : 1945 79 From: Moy Ramos DO PCP: Dr. Desiree Tapia MD Status:[facility] Location: [place] [address] HPI - General General Date of Admission: 10/25/24 Date of Service: 11/16/24 Chief Complaint: Anemia HPI Narrative SANDIE ANGELES, is a 79 F who presents with [...] 2 weeks ago. She denies black/tarry stool. [facility] Medical History Thyroid disease Post-menopausal Insulin dependent [...] History of poliomyelitis HTN (hypertension) Home Medications ???Medication ???Instructions ???Recorded ???Last Taken ???Type atorvastatin 40 mg tablet 40 mg PO QHS #30 tabs 09/10/21 Unk nown Rx losartan 100 mg tablet 100 mg PO DAILY 05/07/22 10/25/24 07:30 History miscellaneous medical supply #2 ea 07/17/22 Unknown Rx glipizide 5 mg tablet 5 mg PO DAILY diabetes 08/05/23 Un known History ketoconazole 2 % shampoo 1 applic topical 3XW PRN PER Unknown History metformin 500 mg tablet 500 mg PO BID diabetes 08/05/23 Un known History amlodipine 10 mg tablet 10 mg PO DAILY 12/31/23 10/25/24 0 7:30 History omeprazole 40 mg capsule,delayed 40 mg PO BID #60 caps 01/04/24 07:30 Rx release insulin glargine 100 unit/mL (3 18 unit subcut BID dm 04/19/24 Unk nown History mL) subcutaneous pen (Lantus Solostar U-100 Insulin) aspirin 81 mg tablet,delayed 81 mg PO .QOD 10/21/24 Unknown His tory release (Adult Low Dose Aspirin) ferrous fumarate 324 mg (106 mg 324 mg PO DAILY 10/21/24 Unknown H istory iron) tablet gabapentin 100 mg capsule 100 mg PO QODAY 10/21/24 Unknown H istory Allergy/AdvReac Type Severity Reaction Status Date / [...] in: other frequency: 1-2 times per week luna/scientologist: Mandaen seatbelt use: always ROS Constitutional Constitutional: Denies fatigue, fever(s), poor appetite, weight gain or weight loss Gastrointestinal Gastrointestinal: D (more content not included)...[facility] 10-25-2024 Consult note [facility] Medical Records Department [address] [place] [address] Pre-Anesthesia Evaluation 10/25/24 1237 MR#: [id number] Acct: [id number] Name: SANDIE ANGELES DAWSON Rep #:[id number] : 1945 79 From: Margarita mckeon CRNA PCP: Dr. Desiree Tapia MD Status:REG [facility] Y Race: C Location: [place] [address] ASA Classification* ASA Classification ASA Classification: 3 [...] Procedure(s): EGD Anesthesia History Anesthesia History - target trimmer: Anesthesia History - target trimmer Hx Hospitalization No 10/21/24 11:31 Any Problems [...] am of surgery omeprazole PONV PONV - target trimmer: PONV - target trimmer Female Yes 10/21/24 11:31 HX of Motion [...] 10/25/24 12:27 Respiratory Assessment Respiratory Assessment - target trimmer: Respiratory Tract Infection Hx - target trimmer Hx Respiratory Tract Infection No 10/21/24 11:31 STOP Sleep Apnea STOP Sleep Apnea - target trimmer: STOP Sleep Apnea - target trimmer Hx Hypertension Yes: CONTROLLED WITH MED 10/21/24 [...] Tobacco Use History Tobacco Use History - target trimmer: Tobacco Use History - target trimmer Tobacco Use Non-smoker 09/10/21 10:00 Smoking Status Never smoker 10/21/24 11:31 Hx Tobacco Use No 10/21/24 11:31 Years Smoking Packs Smoked per Day Smoking Cessation Date was within the last 15 years Hx Smoking Cessation Date Hx Smoking Cessation No: patient doesn't smoke 10/21/24 11:31 Counseling Hematologic Medial History Hematologic Hx - target trimmer: Hematologic Medical Hx - in home 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 10/25/24 1244 nski GRAPHIC DESIGN INTERN> Date _ Margaritaaxel Gonzalez GRAPHIC DESIGN INTERN Cosigner Signature: Date CC: ~ Signed [facility]09-12-2025 Evaluation note* Diagnosis Onset Date Resolution Status Admit Date Iron deficiency anemia chronic Se pt2024 8:20am Anemia acute October 11:57am Dysphagia acute October 11:57am [facility] Work Phone: 1(608) 599[facility]861709-01-2025 [facility] [address] [place] [address] OFFICE VISIT Date of Service: 11/03/24 MR#: [id number] Acct: [id number] Patient: SANDIE ANGELES DAWSON Rep #: [id number] : 1945 Provider: Moy Ramos DO Age/Sex: 79/F Location: [facility] Status: Signed Intake Vital Signs 10/25/24 12:27 Height 5 ft 1 in Intake Visit Reasons: Cap Endo Chief Complaint: Anemia Allergies Sulfa (Sulfonamide Antibiotics) Allergy (Unknown, Verified 10/25/24 12:26) Hives adhesive tape Adverse Reaction (Intermediate, Verified 10/25/24 12:26) Rash latex Adverse Reaction (Verified 10/25/24 12:26) skin reaction Have you fallen in the past year?: No Office Procedures Procedure Administration Route: PO Administration Location: [facility] Dispensed Units: 1 Capsule Lot Number: [id number] Expiration Date: 08/18/25 Capsule ID Number: [id number] Consent Form Signed: Yes Comments: Tolerated well. Reviewed instructions. Clinical Quality Measures Falls Risk Screening/Assistive Devices Have you fallen in the past year?: No 11/03/24 1036 d DO> Date _ Moy Friend DO Cosigner Signature: Date (if applicable) CC: ~ [facility]07-21-2025 Procedure note [facility] Speech Pathology [address] [facility] [place] [address] Modified Barium Swallow Study MR#: [id number] Acct: [id number] Name: SANDIE ANGELES DAWSON Rep #:[id number] : 1945 79 From: Mandie Welch, [facility] Modified Barium Swallow Patient Information Study Date: [...] in the lower esophagus w/ retrograde flow. Wylie Thick Liquid via small single sip: cup: [...] Status Active ST Patient: Active Contact Information [facility] Speech Therapy:: Mandie Pham M.A. [employer]? Speech-Language Pathologist?? [facility] [address] [place] [address]? [email or web address]?? 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 12:57pm Cerebrovascular disease inactive M ay 2024 12:57pm Impacted cerumen, right ear acute June 28, 2024 2:00pm [facility] Work Phone: 1(532) 726-783905-20-2025 Evaluation note* Diagnosis Onset Date Resolution Status Admit Date Dysphagia acute June 28, 2024 12:57pm Polyneuropathy chronic June 28, 2024 12:57pm Post herpetic neuralgia chronic M ay 2024 12:57pm 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 12:57pm Cerebrovascular disease inactive M ay 2024 12:57pm Impacted cerumen, right ear acute June 28, 2024 2:00pm Iron deficiency anemia chronic Se ptember 2024 8:20am [facility] Work Phone: 1(119) 174-674705-20-2025 Evaluation note* Diagnosis Onset Date Resolution Status Admit Date Dysphagia acute June 28, 2024 12:57pm Polyneuropathy chronic June 28, 2024 12:57pm Post herpetic neuralgia chronic M ay 2024 12:57pm 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 102024 12:57pm Cerebrovascular disease inactive [facility] 2024 12:57pm Impacted cerumen, right ear acute June 28, 2024 2:00pm Iron deficiency anemia chronic Se ptember 2024 8:20am Anemia acute October 11:57am Dysphagia acute October 11:57am [facility] Work Phone: 1(441) 373-871102-11-2025 Evaluation note* Diagnosis Onset Date Resolution Status Admit Date Cerebrovascular disease chronic F ebruary 2024 12:49pm Polyneuropathy chronic March 122024 12:49pm Post herpetic neuralgia chronic F ebruary 2024 12:49pm Post-polio syndrome chronic Febru mitch 2024 12:49pm [facility] Work Phone: 1(821) 528-326202-11-2025 Evaluation note* Diagnosis Onset Date Resolution Status Admit Date Cerebrovascular disease chronic F ebruary 2024 12:49pm Polyneuropathy chronic March 122024 12:49pm Post herpetic neuralgia chronic F ebruary 2024 12:49pm Post-polio syndrome chronic Febru mitch 2024 12:49pm Carotid artery stenosis acute M arch 2024 12:59pm Peripheral arterial disease acute April 19, 2024 12:59pm [facility] Work Phone: 1(707) 926-560702-11-2025 Evaluation note* Diagnosis Onset Date Resolution Status [...] 12:57pm 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 102024 12:57pm [facility] Work Phone: 1(513) [phone] [facility] Medical Records Department [address] [place] [address] History Physical Exam 01/04/24 0740 MR#: [id number] Acct: [id number] Name: SANDIE ANGELES Rep #: [id number] : 1945 78 From: [facility] Friend PCP: Dr. Desiree Tapia MD Status:[facility] Location: [place] [address] History and Physical Date of Admission: 01/04/24 Chief Complaint: dysphagia, anemia Details: SANDIE ANGELES, is a 78 F who presents to the office today for establishment with [facility]. Pt has a PMHx of [...] most recent episode of while eating a beninese fernandez. She is not too concerned about [...] Appearance: average body habitus and well nourished [facility] Head: normal to inspection Ears: hearing grossly [...] changes since date of exam. 01/04/24 0740 Cosigner Signature (if applicable): CC: Dr. Desiree Tapia MD; Moy Ramos DO [facility] Stanislav Altamirano [facility] Note Date/Time October 25, 2024 1:53pm [facility] Medical Records Department [address] [place] [address] Anesthesia Postop Eval I 10/25/24 1352 MR#: [id number] Acct: [id number] Name: SANDIE ANGELES Rep #:[id number] : 1945 79 From: Stanislav Altamirano PCP: Dr. Desiree Tapia MD Status:REG [facility] Y Race: C Location: [place] [address] Anesthesia: Postop Eval I Current Vital Signs [...] Stanislav Chauhan Signature: Date CC: ~ Signed [facility] Work Phone: Evaluation note* Diagnosis Onset Date Resolution Status Ataxia acute Disequilibrium acute Weakness acute [facility] Work Phone: Evaluation note* Diagnosis Onset Date Resolution Status Ataxia acute 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 Diabetes mellitus acute Disequilibrium acute Rosacea acute Weakness acute [facility] Work Phone: Evaluation noteNo assessment information available [facility] Work Phone: Evaluation note* Diagnosis Onset Date Resolution Status Absent pedal pulses acute Bilateral ankle pain acute Bilateral carotid bruits acu te Bilateral foot pain acute Cerebrovascular disease metal lather patricia Polyneuropathy chronic Post-polio syndrome [facility] Work Phone: Evaluation note* Diagnosis Onset Date Resolution Status Absent pedal pulses acute Bilateral ankle pain acute Bilateral carotid bruits acu te Bilateral foot pain acute Cerebrovascular disease metal lather patricia Polyneuropathy chronic Post-polio syndrome chronic Carotid artery stenosis acut e Peripheral arterial disease acute [facility] Work Phone: Evaluation note* Diagnosis Onset Date Resolution Status Hypersomnia acute Cerebrovascular disease metal lather patricia Polyneuropathy chronic Post herpetic neuralgia metal lather patricia [facility] Work Phone: [facility] Work Phone: Progress note Author Moy Ramos [facility] Note Date/Time November 03, 2024 10:36am [facility] [address] [place] [address] OFFICE VISIT Date of Service: 11/03/24 MR#: [id number] Acct: [id number] Patient: BRIDGETTESANDIE Rep #: [id number] : 1945 Provider: Moy Ramos DO Age/Sex: 79/F Location: [email or web address] Status: Signed Intake Vital Signs 10/25/24 12:27 Height 5 ft 1 in Intake Visit Reasons: Cap Endo Chief Complaint: Anemia Allergies Sulfa (Sulfonamide Antibiotics) Allergy (Unknown, Verified 10/25/24 12:26) Hives adhesive tape Adverse Reaction (Intermediate, Verified 10/25/24 12:26) Rash latex Adverse Reaction (Verified 10/25/24 12:26) skin reaction Have you fallen in the past year?: No Office Procedures Procedure Administration Route: PO Administration Location: [facility] Dispensed Units: 1 Capsule Lot Number: [id number] Expiration Date: 08/18/25 Capsule ID Number: [id number] Consent Form Signed: Yes Comments: Tolerated well. Reviewed instructions. Clinical Quality Measures Falls Risk Screening/Assistive Devices Have you fallen in the past year?: No 11/03/24 1036 <Electronically signed by Moy brown DO> Date _ Moy Pablo Signature: Date (if applicable) CC: ~ [facility] Work Phone: Reason for referral (narrative)No reason for [facility] Work Phone: Summary Purpose Family History No Family History Records Found Relationship Condition Age at Onset Recorded Date/T [...] aunt Cerebrovascular accident (CVA) Unknown Advance Directives No Advanced Directives Records Found Advance Directive Response Recorded Date/ Time Living Will Yes September 09, 2021 11:37am Power of Mophead Sewer Yes September 09 11:37am Name of Medical Power of Mophead Sewer VANDANA ANGELES September 09, 2021 11:37am Advance Directive Response Recorded Date/ Time Name of Medical Power of Mophead Sewer Vandana Angeles September 09, 2021 2:25pm Living Will Yes September 09, 2021 2:25pm Power of Mophead Sewer Yes September 09 2:25pm Advance Directive Response Recorded Date/ Time Living Will Yes September 09, 2021 1:25pm Power of [place] [employer] Yes September 09 1:25pm Advance Directive Response Recorded Date/ Time Living Will Yes September 09, 2021 2:25pm Power of [place] [employer] Yes September 09 2:25pm Advance Directive Response Recorded Date/ Time Living Will Yes September 09, 2021 1:25pm Power of [place] [employer] Yes September 09 1:25pm Living Will Yes December 30, 024 10:03am Power of [place] [employer] Yes December 31, 2023 10:03am Name of Medical Power of [place] [employer] VANDANA December 31, 2023 10:03am Advance Directive Response Recorded Date/ Time Living Will Yes September 09, 2021 2:25pm Do you have a Healthcare Power of [place] [employer]? Yes September 09, 2021 2:25pm Living Will Yes December 30, 2 024 11:03am Do you have a Healthcare Power of [place] [employer]? Yes December 31, 2023 11:03am Name of Medical Power of [place] [employer] VANDANA December 31, 2023 11:03am Advance Directive Response Recorded Date/ Time Living Will Yes September 09, 2021 2:25pm Do you have a Healthcare Power of [place] [employer]? Yes September 09, 2021 2:25pm Advance Directive Response Recorded Date/ Time Do you have a Healthcare Power of [place] [employer]? Yes October 21, 2024 11:31am Chief Complaint [...] 12:59pm Chief Complaint Admit Date 6 mo fu [...] June 28 2:00pm Iron deficiency anemia October 21 025 8:20am Anemia October 25, 2024 11:57am Dysphagia October 25, 2024 11:57am Chief Complaint Admit Date DYSPHAGIA August 29, 2024 12:4 3pm Low Hemoglobin October 21, 2024 8:20am E ORDER October 21, 2024 8:58am Cap Endo November 03, 2024 7:24am Reason for Visit Admit Date Iron deficiency anemia October 21 025 8:20am Anemia October 25, 2024 11:57am Dysphagia October 25, 2024 11:57am Additional Source Comments INFORMATION SOURCE (unrecogn ized section and content) DATE CREATED AUTHOR 10/20/2017 [facility] DATE CREATED AUTHOR AUTHOR'S ORGANIZ ATION 01/18/2022 [facility] ([place]) DATE CREATED AUTHOR AUTHOR'S ORGANIZ ATION 11/24/2024 [facility] Goals (unrecognized section and content) Goals may [...] Role Status Dates Dr. Desiree Tapia MD Family Provider Active Dr. Desiree Tapia MD Primary Care Provider Active Team Status: Inactive Member Role Status Dates Dr. Desiree Tapia MD [facility] Provider[facility] Active Dr. Surendra Hidalgo MD Attending [...] January 04, 2024 Dr. Moy Ramos DO Other Provider Active St art: January 04, 2024 Team Status: Inactive Member Role Status Dates Dr. Desiree Tapia MD Primary Care Provider Active Start: January 11, 2024 End: January 11, 2024 Dr. Desiree Tapia MD Attending Provider Active Start: January 11, [...] June 28, 2024 End: June 28, 2024 SUZETTE Couch Attending Provider Active Start: June 28, 2024 [...] Provider Active St art: October 25, 2024 Team Status: Active Member Role/Relationship Status Dates Dr. Desiree Tapia MD Primary care physician Active Team Status: Inactive Member Role/Relationship Status Dates Dr. Desiree Tapia MD Primary care physician Active Start: August 29, 2024 End: August 29, 2024 Dr. Surendra Hidalgo MD Attending physician Active Start: August 29, 2024 End: August 29, 2024 Dr. Surendra Hidalgo MD Referring Provider Active Start: August 29, 2024 End: August 29, 2024 Team Status: Inactive Member Role/Relationship Status Dates Dr. Desiree Tapia MD Primary care physician Active Start: October 04, 2024 End: October 04, 2024 Dr. Desiree Tapia MD Attending physician Active Start: October 04, 2024 End: October 04, 2024 Team Status: Inactive Member Role/Relationship Status Dates Dr. Desiree Tapia MD Primary care physician Active Start: October 21, 2024 End: October 21, 2024 Dr. Desiree Tapia MD Referring Provider Active Start: October 21, 2024 End: October 21, 2024 SUZETTE Carlson Attending physician Active Start: October 21, 2024 End: October 21, 2024 Team Status: Inactive Member Role/Relationship Status Dates Dr. Desiree Tapia MD Primary care physician Active Start: October 21, 2024 End: October 21, 2024 SUZETTE Carlson Attending physician Active Start: October 21, 2024 End: October 21, 2024 SUZETTE Carlson Referring Provider Active Start: October 21, 2024 End: October 21, 2024 Team Status: Inactive Member Role/Relationship Status Dates Dr. Desiree Tapia MD Primary care physician Active Start: October 25, 2024 End: October 25, 2024 Dr. Desiree Tapia MD Referring Provider Active Start: October 25, 2024 End: October 25, 2024 Dr. Moy Ramos DO Attending physician Active Start: October 25, 2024 End: October 25, 2024 Team Status: Active Member Role/Relationship Status Dates Dr. Desiree Tapia MD Primary care physician Active Start: October 25, 2024 Dr. Desiree Tapia MD Referring Provider Active Start: October 25, 2024 Dr. Moy Ramos DO Attending physician Active Start: October 25, 2024 Dr. Moy Ramos DO Nurse Practitioner Active Start: October 25, 2024 Team Status: Inactive Member Role/Relationship Status Dates Dr. Desiree Tapia MD Primary care physician Active Start: November 03, 2024 End: November 03, 2024 Dr. Desiree Tapia MD Referring Provider Active Start: November 03, 2024 End: November 03, 2024 Dr. Moy Ramos DO Attending physician Active Start: November 03, 2024 End: November 03, 2024 FOR RECORDS PERTAINING TO PATIENTS WHO [...] BE BASED ON THE PRIMARY CLINICAL RECORDS. [employer] provides no warranty or guarantee of the accuracy or completeness of information in this document.
--- OUTSIDE RECORDS SUMMARY | 2024-11-25 08:09 | XMS RPT_ITS | CCD ---
Author Organization [facility] Care Team Providers Care Sql Engineer Name Role Phone DESIREE TAPIA Unavailable Unavailable [...] Provider [phone] Dr. Arya Argueta Attending Provider 1([facility])[phone] Surendra Hidalgo Referring Provider [phone] [...] Desiree Tapia MD Attending Provider [phone] Dr. Surendra Hidalgo MD Attending Provider Dr. Desiree Tapia [...] Unavailable Miedel, Desiree Primary Care Unavailable Miedel, Desriee Referring Unavailable Miedel, Desiree Attending Unavailable Miedel, [...] Care Unavailable Miedel, Desiree Referring Unavailable Miedel, Edsiree Primary Care Unavailable Surendra Hidalgo Attending Unavailable [...] [adhesive tape] Propensity to adverse reactions 2 [facility] (19 sources) Sulfonamides (Antibiotic); Translations: [Sulfa (Sulfonamide Antibiotics)] Allergy to substance [address] [facility] (10 sources) Latex Propensity to adverse reactions [address] [facility] (1 source) Latex Drug allergy (disorder) 5 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 Procedure Carotid Duplex 39060. This is a Carotid Duplex examination using [...] Dictated: 11/22/24 1317 Date Transcribed: 11/23/24 1011 Chef Passenger Vessel: Signed [facility] Office Visit Reporton [address] [facility] [address] [place] [address] OFFICE VISIT Date of Service: 11/03/24 MR#: [id number] Acct: [id number] Patient: SANDIE ANGELES Rep #: [id number] : 1945 Provider: Moy Ramos DO Age/Sex: 79/F Location: [facility] Status: Signed Intake Vital Signs 10/25/24 12:27 Height 5 ft 1 in Intake Visit Reasons: Cap Endo Chief Complaint: Anemia Allergies Sulfa (Sulfonamide Antibiotics) Allergy (Unknown, Verified 10/25/24 12:26) Hives adhesive tape Adverse Reaction (Intermediate, Verified 10/25/24 12:26) Rash latex Adverse Reaction (Verified 10/25/24 12:) skin reaction Have you fallen in the past year?: No Office Procedures Procedure Administration Route: PO Administration Location: [facility] Dispensed Units: 1 Capsule Lot Number: [id number] Expiration Date: 08/18/25 Capsule ID Number: [id number] Consent Form Signed: Yes Comments: Tolerated well. Reviewed instructions. Clinical Quality Measures Falls Risk Screening/Assistive Devices Have you fallen in the past year?: No 11/03/24 1036 Date Moy Pablo Signature: Date (if applicable) CC: Normal [facility] EGD Reporton 10-25-2024 EGD Report [facility] Medical Records Department [address] [place] [address] EGD Report MR#: [id number] Acct: [id number] Name: SANDIE ANGELES DAWSON Rep #: [id number] : 1945 79 From: Moy Ramos DO PCP: Dr. Desiree Tapia MD Status:[facility] Patient Name: Sandie nAgeles Procedure Date: 10/25/2024 1:23 PM Date of [...] present medications. Procedure Code(s): --- Professional --- 91721, Small intestinal endoscopy, enteroscopy beyond second portion of duodenum, not including ileum; with control of bleeding (eg, injection, bipolar cautery, unipolar cautery, laser, heater probe, stapler, plasma courtesy clerk) CPT copyright 2021 [employer]. All rights reserved. The codes documented in this report are preliminary and upon self sealing fuel tank builder review may be revised to meet current compliance requirements. Moy Ramos DO 10/25/2024 1:53:07 PM This report has been signed electronically. Number of Addenda: 0 Note Initiated On: 10/25/2024 1:23 PM 10/25/24 1353 Date Moy Priceignbilly Signature: Date (if indicated) CC: Dr. Desiree Tapia MD; Moy Ramos DO Date Dictated: 10/25/24 1323 Date Transcribed: Chef Passenger Vessel: RF Signed [facility] MR/OP.PROVATon 10-25-2024 MR/OP.[facility] Medical Records Department [address] [place] [address] Provation Physician Letter MR#: [id number] Acct: [id number] Name: SANDIE ANGELES DAWSON Rep #: [id number] : 1945 79 From: Moy Ramos DO PCP: Dr. Desiree Tapia MD Status:REG [facility] 10/25/2024 Desiree Tapia [address] [place] [address] Re : Upper GI endoscopy procedure for [...] DO Date Dictated: 10/25/24 1323 Date Transcribed: Chef Passenger Vessel: RF Signed [facility] MR/POSTOP.[facility] 10-25-2024 MR/POSTOP.[facility] Medical Records Department [address] [place] [address] Anesthesia Postop Eval I 10/25/24 135 MR#: [id number] Acct: [id number] Name: SANDIE ANGELES DAWSON Rep #: [id number] : 1945 79 From: Stanislav Altamirano PCP: Dr. Desiree Tapia MD Status:REG SDC Y Race: C Location: [place] [address] Anesthesia: Postop Eval I Current Vital Signs [...] Stanislav Jonesignbilly Signature: Date CC: Signed Normal [facility] MR/KAILRHQI9uv 10-25-2024 MR/POSTOPAN2 [facility] Medical Records Department [address] [place] [address] Anesthesia Postop Eval II 10/25/24 1507 MR#: [id number] Acct: [id number] Name: SANDIE ANGELES DAWSON Rep #: [id number] : 1945 79 From: Margarita Gonzalez CRNA PCP: Dr. Desiree Tapia MD Status:DEP [facility] Y Race: C Location: EN Anesthesia Postop [...] Complication: No 10/25/24 1508 Date Margarita Gonzalez [employer]ICITOR Cosigner Signature: Date CC: Signed Normal [facility] Absolute lymphocyte countOrd ered By: Lesly Hardwick on 10-21-2024 Lymphocytes Auto (Unsp spec) [#/Vol] 0.57 10*3/uL Low 0.83-4.51 [facility] Absolute neutrophil countOrd ered By: Lesly Hardwick on 10-21-2024 Neutrophils (Bld) [#/Vol] 3.1 10*3/uL 2.0-7.7 [facility] Anion gap in Serum or Plasma Ordered By: Lesly Hardwick on 10-21-2024 Anion gap [Moles/Vol] 15 mmol/L 5-15 [facility] Automated lymphocyte count a s percentage of total leukocytesOrdered By: Lesly Hardwick on 10-21-2024 Lymphocytes/100 WBC Auto (Unsp spec) 13.5 % Low 19-41 [facility] BUN/creatinine ratioOrdered By: Lesly Hardwick on 10-21-2024 Urea nitrogen/Creatinine [Mass ratio] 15.6 mg/mg 10- [facility] Basophil percentageOrdered B y: Lesly Hardwick on 10-21-2024 Basophils/100 WBC (Bld) 0.9 % 0-1 [facility] Bilirubin, totalOrdered By: Lesly Hardwick on 10-21-2024 Bilirubin [Mass/Vol] 0.58 mg/dL 0.00-1.30 [facility] CBC W/Diff, Automatedon 10-10 Absolute Lymph 0.57 X10 3/uL Low 0.83-4.51 [facility] Comment on above: Performed By: #### L 100.0100, L500.4050 #### [facility] [address] [place], [address] Absolute Neut 3.1 X10 3/uL Normal 2.0-7.7 [facility] Comment on above: Performed By: #### L 100.0100, L500.4050 #### [facility] [address] [place], [address] Basophils/100 WBC (Bld) 0.9 % Normal 0-1 [facility] Comment on above: Performed By: #### L 100.0100, L500.4050 #### [facility] [address] [place], [address] Eosinophils/100 WBC (Bld) 3.1 % Normal 0-5 [facility] Comment on above: Performed By: #### L 100.0100, L500.4050 #### [facility] [address] [place], [address] Erythrocyte distribution width (RBC) [Ratio] 17.2 % High 11.6-14.6 [facility] Comment on above: Performed By: #### L 100.0100, L500.4050 #### [facility] [address] [place], [address] Hematocrit (Bld) [Volume fraction] 26.7 % Low 37-47 [facility] Comment on above: Performed By: #### L 100.0100, L500.4050 #### [facility] [address] [place], [address] Hemoglobin (Bld) [Mass/Vol] 8.1 g/dL Low 12.0-15.0 [facility] Comment on above: Performed By: #### L 100.0100, L500.4050 #### [facility] [address] [place], [address] IG% 0.500 Normal 0.0-0.9 [facility] Comment on above: Result Comment: IG% - Immature Granulocytes (promyelocytes, myelocytes and metamyelocytes) > 1% indicates that a LEFT SHIFT is Present. Performed By: #### L 100.0100, L500.4050 #### [facility] [address] [place], [address] Lymphocytes/100 WBC (Bld) 13.5 % Low 19-41 [facility] Comment on above: Performed By: #### L 100.0100, L500.4050 #### [facility] [address] [place], [address] MCH (RBC) [Entitic mass] 25.4 pg Low 27.0-32.0 [facility] Comment on above: Performed By: #### L 100.0100, L500.4050 #### [facility] [address] [place], [address] MCHC (RBC) [Mass/Vol] 30.3 g/dL Low 32-36 [facility] Comment on above: Performed By: #### L 100.0100, L500.4050 #### [facility] [address] [place], [address] MCV (RBC) [Entitic vol] 83.7 fL Normal 81-99 [facility] Comment on above: Performed By: #### L 100.0100, L500.4050 #### [facility] [address] [place], [address] Monocytes/100 WBC (Bld) 7.8 % Normal 0-10 [facility] Comment on above: Performed By: #### L 100.0100, L500.4050 #### [facility] [address] [place], [address] Neutrophils/100 WBC (Bld) 74.2 % High 47-70 [facility] Comment on above: Performed By: #### L 100.0100, L500.4050 #### [facility] [address] [place], [address] Nucleated RBC (Bld) [#/Vol] 0 10*3/uL Normal 0-5 [facility] Comment on above: Performed By: #### L 100.0100, L500.4050 #### [facility] [address] [place], [address] Platelet mean volume (Bld) [Entitic vol] 11.1 fL Normal 6.2-12.0 [facility] Comment on above: Performed By: #### L 100.0100, L500.4050 #### [facility] [address] [place], [address] Platelets (Bld) [#/Vol] 164 10*3/uL Normal 150-450 [facility] Comment on above: Performed By: #### L 100.0100, L500.4050 #### [facility] [address] [place], [address] RBC (Bld) [#/Vol] 3.19 10*6/uL Low 4.2-5.4 [facility] Comment on above: Performed By: #### L 100.0100, L500.4050 #### [facility] [address] [place], [address] RDW SD 51.8 fl High 35.1-43.9 [facility] Comment on above: Performed By: #### L 100.0100, L500.4050 #### [facility] [address] [place], [address] WBC (Bld) [#/Vol] 4.2 10*3/uL Low 4.4-11.0 [facility] Comment on above: Performed By: #### L 100.0100, L500.4050 #### [facility] [address] [place], [address] Carbon dioxide, total [Moles /volume] in Central venous bloodOrdered By: Lesly Hardwick on 10-21-2024 CO2 [Moles/Vol] 18.5 mmol/L Low 21.0-32.0 [facility] Chloride assayOrdered By: Alejandra Hardwick on 10-21-2024 Chloride [Moles/Vol] 107 mmol/L 98-108 [facility] Comprehensive Metabolic Prof ilon 10-21-2024 Albumin [Mass/Vol] 3.7 g/dL Normal 3.4-4.8 [facility] Comment on above: Performed By: #### L 100.0100, L500.4050 #### [facility] [address] [place], [address] Albumin/Globulin [Mass ratio] 1.0 {ratio} Normal 0.9-2.4 [facility] Comment on above: Performed By: #### L 100.0100, L500.4050 #### [facility] [address] [place], [address] ALK PHOS 97 U/L Normal 35-104 [facility] Comment on above: Performed By: #### L 100.0100, L500.4050 #### [facility] [address] [place], [address] ALT [Catalytic activity/Vol] 12 U/L Normal <=34 [facility] Comment on above: Performed By: #### L 100.0100, L500.4050 #### [facility] [address] [place], [address] AST [Catalytic activity/Vol] 28 U/L Normal <=31 [facility] Comment on above: Performed By: #### L 100.0100, L500.4050 #### [facility] [address] [place], [address] Bilirubin [Mass/Vol] 0.58 mg/dL Normal 0.00-1.30 [facility] Comment on above: Performed By: #### L 100.0100, L500.4050 #### [facility] [address] [place], [address] BUN/CRE 15.6 RATIO Normal 10-20 [facility] Comment on above: Performed By: #### L 100.0100, L500.4050 #### [facility] [address] [place], [address] Calcium [Mass/Vol] 8.4 mg/dL Normal 7.6-11.0 [facility] Comment on above: Performed By: #### L 100.0100, L500.4050 #### [facility] [address] [place], [address] Chloride [Moles/Vol] 107 mmol/L Normal 98-108 [facility] Comment on above: Performed By: #### L 100.0100, L500.4050 #### [facility] [address] [place], [address] CO2 [Moles/Vol] 18.5 mmol/L Low 21.0-32.0 [facility] Comment on above: Performed By: #### L 100.0100, L500.4050 #### [facility] [address] [place], [address] Creatinine [Mass/Vol] 1.35 mg/dL High 0.70-1.20 [facility] Comment on above: Performed By: #### L 100.0100, L500.4050 #### [facility] [address] [place], [address] GAP 15 Normal 5-15 [facility] Comment on above: Performed By: #### L 100.0100, L500.4050 #### [facility] [address] [place], [address] GFR/1.73 sq M.predicted among non-blacks MDRD (S/P/Bld) [Vol rate/Area] 39 mL/min/{1.73_m2} Low >60 [facility] Comment on above: Result Comment: mL/m in/1.73m2 CKD-EPI Creatinine Equation (2020) Performed By: #### L 100.0100, L500.4050 #### [facility] [address] [place], [address] Globulin (S) [Mass/Vol] 3.6 g/dL Normal 2.2-4.2 [facility] Comment on above: Performed By: #### L 100.0100, L500.4050 #### [facility] [address] [place], [address] Glucose [Mass/Vol] 170 mg/dL High 70-99 [facility] Comment on above: Performed By: #### L 100.0100, L500.4050 #### [facility] [address] [place], [address] Potassium [Moles/Vol] 3.9 mmol/L Normal 3.3-5.1 [facility] Comment on above: Performed By: #### L 100.0100, L500.4050 #### [facility] [address] [place], [address] Sodium [Moles/Vol] 141 mmol/L Normal 133-145 [facility] Comment on above: Performed By: #### L 100.0100, L500.4050 #### [facility] [address] [place], [address] T PROT 7.3 g/dL Normal 5.9-8.4 [facility] Comment on above: Performed By: #### L 100.0100, L500.4050 #### [facility] [address] [place], [address] Urea nitrogen [Mass/Vol] 21 mg/dL High 4-19 [facility] Comment on above: Performed By: #### L 100.0100, L500.4050 #### [facility] [address] [place], [address] Eosinophil percentageOrdered By: Lesly Hardwick on 10-21-2024 Eosinophils/100 WBC (Bld) 3.1 % 0-5 [facility] Erythrocyte distribution wid th ratioOrdered By: Lesly Hardwick on 10-21-2024 Erythrocyte distribution width (RBC) [Ratio] 17.2 % High 11.6-14.6 [facility] Erythrocyte distribution wid th standard deviationOrdered By: Lesly Hardwick on 10-21-2024 Erythrocyte distribution width (RBC) [Ratio] 51.8 fl High 35.1-43.9 [facility] Gastroenterology Visit Repor ton 10-21-2024 Gastroenterology Visit Report [facility]enterology [address] [place] [address] OFFICE VISIT Date of Service: 10/21/24 MR#: [id number] Acct: [id number] Name: SANDIE ANGELES DAWSON Rep #: [id number] : 1945 Provider: SUZETTE Carlson Age/Sex: 79/F Location[place] [facility] Status: Signed Intake Vital Signs 06/28/24 14:04 [...] you fallen in the past year?: No [facility] Medical History (Updated 08/14/24 @ 18:47 by [...] in: other frequency: 1-2 times per week luna/spiritism: Jewish seatbelt use: always HPI HPI Chief Complaint: [...] with swal (more content not included)... Normal [facility] Glomerular filtration rate ( GFR) estimation/1.73 sq m using serum, plasma, or whole bOrdered By: Lesly Hardwick on 10-21-2024 GFR/1.73 sq M.predicted among non-blacks MDRD (S/P/Bld) [Vol rate/Area] 39 mL/min/{1.73_m2} Low >60 [facility] Comment on above: mL/min/1.73m2 CKD-EP I Creatinine Equation (2020) Hematocrit Auto (Bld) [Volum e fraction]Ordered By: Lesly Hardwick on 10-21-2024 Hematocrit (Bld) [Volume fraction] 26.7 % Low 37-47 [facility] Hemoglobin measurementOrdere d By: Lesly Hardwick on 10-21-2024 Hemoglobin (Bld) [Mass/Vol] 8.1 g/dL Low 12.0-15.0 [facility] Immature granulocytes/100 WB C Auto (Bld)Ordered By: Lesly Hardwick on 10-21-2024 Immature granulocytes/100 WBC (Bld) 0.500 % 0.0-0.9 [facility] Comment on above: IG% - Immature Granu locytes (promyelocytes, myelocytes and metamyelocytes) > 1% indicates that a LEFT SHIFT is Present. Laboratory - Chemistry and C hemistry - challengeOrdered By: Lesly Hardwick on 10-21-2024 AST [Catalytic activity/Vol] 28 U/L <32 [facility] MCV (mean corpuscular volume ) determinationOrdered By: Lesly Hardwick on 10-21-2024 MCV (RBC) [Entitic vol] 83.7 fL 81-99 [facility] MR/PAT.ANEon 10-21-2024 MR/PAT.ANE [facility] Medical Records Department [address] [place] [address] PAT - Anesthesia 10/21/24 1228 MR#: [id number] Acct: [id number] Name: SANDIE ANGELES DAWSON Rep #: [id number] : 1945 79 From: Arya Dumont MD PCP: Dr. 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 History - records management manager: Anesthesia History - records management manager Hx Hospitalization No 10/21/24 11:31 Any Problems [...] take am of surgery PONV PONV - records management manager: PONV - records management manager Female Yes 10/21/24 11:31 HX of Motion [...] 06/28/24 14:04 Respiratory Assessment Respiratory Assessment - records management manager: Respiratory Tract Infection Hx - records management manager Hx Respiratory Tract Infection No 10/21/24 11:31 STOP Sleep Apnea STOP Sleep Apnea - records management manager: STOP Sleep Apnea - records management manager Hx Hypertension Yes: CONTROLLED WITH MED 10/21/24 [...] Tobacco Use History Tobacco Use History - records management manager: Tobacco Use History - records management manager Tobacco Use Non-smoker 09/10/21 10:00 Smoking Status Never smoker 10/21/24 11:31 Hx Tobacco Use No 10/21/24 11:31 Years Smoking Packs Smoked per Day Smoking Cessation Date was within the last 15 years Hx Smoking Cessation Date Hx Smoking Cessation No: patient doesn't smoke 10/21/24 11:31 Counseling Hematologic Medial History Hematologic Hx - records management manager: Hematologic Medical Hx - documentation improvement specialist Hx of Blood Transfusion No 10/21/24 11:31 [...] confused, unrespo /Reproduction History /Reproductive History - records management manager: /Reproductive Hx- records management manager Hx Now No 10/21/24 11:31 Gestational Age (in weeks): EDC: Hx Hx Para Hx Section SAB No 10/21/24 11:31 [facility] Medical History (Updated 10/21/24 @ 11:55 by [...] Medications ???M (more content not included)... Normal [facility] Mean corpuscular hemoglobin (MCH) determinationOrdered By: Lesly Hardwick on 10-21-2024 MCH (RBC) [Entitic mass] 25.4 pg Low 27.0-32.0 [facility] Mean corpuscular hemoglobin concentration (MCHC) determinationOrdered By: Lesly Hardwick on 10-21-2024 MCHC (RBC) [Mass/Vol] 30.3 g/dL Low 32-36 [facility] Mean platelet volume determi nationOrdered By: Lesly Hardwick on 10-21-2024 Platelet mean volume (Bld) [Entitic vol] 11.1 fL 6.2-12.0 [facility] Monocyte percentageOrdered B y: Lesly Hardwick on 10-21-2024 Monocytes/100 WBC (Bld) 7.8 % 0-10 [facility] Neutrophil percentageOrdered By: Lesly Hardwick on 10-21-2024 Neutrophils/100 WBC (Bld) 74.2 % High 47-70 [facility] Nucleated red blood cell per centageOrdered By: Lesly Hardwick on 10-21-2024 Nucleated RBC/100 WBC (Bld) [Ratio] 0 % 0-5 [facility] Platelet countOrdered By: Alejandra Hardwick on 10-21-2024 Platelets (Bld) [#/Vol] 164 10*3/uL 150-450 [facility] Potassium measurement (mass/ volume)Ordered By: Lesly Hardwick on 10-21-2024 Potassium (Unsp spec) [Mass/Vol] 3.9 mmol/L 3.3-5.1 [facility] RBC Auto (Bld) [#/Vol]Ordere d By: Lesly Hardwick on 10-21-2024 RBC (Bld) [#/Vol] 3.19 10*6/uL Low 4.2-5.4 [facility] Serum creatinine measurement (mass/volume)Ordered By: Lesly Hardwick on 10-21-2024 Creatinine [Mass/Vol] 1.35 mg/dL High 0.70-1.20 [facility] Serum globulin measurementOr dered By: Lesly Hardwick on 10-21-2024 Globulin (S) [Mass/Vol] 3.6 g/dL 2.2-4.2 [facility] Serum glucose measurement (m ass/volume)Ordered By: Lesly Hardwick on 10-21-2024 Glucose [Mass/Vol] 170 mg/dL High 70-99 [facility] Serum or plasma alanine mao otransferase (ALT) measurementOrdered By: Lesly Hardwick on 10-21-2024 ALT [Catalytic activity/Vol] 12 U/L <35 [facility] Serum or plasma albumin nick urement (mass/volume)Ordered By: Lesly Hardwick on 10-21-2024 Albumin [Mass/Vol] 3.7 g/dL 3.4-4.8 [facility] Serum or plasma albumin/glob ulin mass ratioOrdered By: Lesly Hardwick on 10-21-2024 Albumin/Globulin [Mass ratio] 1.0 {ratio} 0.9-2.4 [facility] Serum or plasma alkaline kathleen sphatase measurementOrdered By: Lesly Hardwick on 10-21-2024 ALP [Catalytic activity/Vol] 97 U/L 35-104 [facility] Serum or plasma calcium nick urement (mass/volume)Ordered By: Lesly Hardwick on 10-21-2024 Calcium [Mass/Vol] 8.4 mg/dL 7.6-11.0 [facility] Serum or plasma urea nitroge n measurement (mass/volume)Ordered By: Lesly Hardwick on 10-21-2024 Urea nitrogen [Mass/Vol] 21 mg/dL High 4-19 [facility] Sodium levelOrdered By: Laurie Hardwick on 10-21-2024 Sodium [Moles/Vol] 141 mmol/L 133-145 [facility] Total proteinOrdered By: Josephine Hardwick on 10-21-2024 Protein [Mass/Vol] 7.3 g/dL 5.9-8.4 [facility] White blood cell (WBC) count Ordered By: Lesly Hardwick on 10-21-2024 WBC (Bld) [#/Vol] 4.2 10*3/uL Low 4.4-11.0 [facility] Absolute lymphocyte countOrd ered By: Desiree Tapia on 10-04-2024 Lymphocytes Auto (Unsp spec) [#/Vol] 0.83 10*3/uL 0.83-4.51 [facility] Absolute neutrophil countOrd ered By: Desiree Tapia on 10-04-2024 Neutrophils (Bld) [#/Vol] 5.4 10*3/uL 2.0-7.7 [facility] Anion gap in Serum or Plasma Ordered By: Desiree Tapia on 10-04-2024 Anion gap [Moles/Vol] 15 mmol/L 5-15 [facility] Automated lymphocyte count a s percentage of total leukocytesOrdered By: Desiree Tapia on 10-04-2024 Lymphocytes/100 WBC Auto (Unsp spec) 11.8 % Low 19-41 [facility] BUN/creatinine ratioOrdered By: Desiree Tapia on 10-04-2024 Urea nitrogen/Creatinine [Mass ratio] 13.8 mg/mg 10-20 [facility] Basophil percentageOrdered B y: Desiree Tapia on 10-04-2024 Basophils/100 WBC (Bld) 0.9 % 0-1 [facility] Bilirubin, totalOrdered By: Desiree Tapia on 10-04-2024 Bilirubin [Mass/Vol] 0.70 mg/dL 0.00-1.30 [facility] CBC W/Diff, Automatedon 09-10 Absolute Lymph 0.83 X10 3/uL Normal 0.83-4.51 [facility] Comment on above: Performed By: #### L 501.9520, L502.0250, L503.0106, L500.4050, L503.6030, L100.0100, L503.6550 ####[facility] [address] [place], [address] Absolute Neut 5.4 X10 3/uL Normal 2.0-7.7 [facility] Comment on above: Performed By: #### L 501.9520, L502.0250, L503.0106, L500.4050, L503.6030, L100.0100, L503.6550 ####[facility] [address] [place], [address] Basophils/100 WBC (Bld) 0.9 % Normal 0-1 [facility] Comment on above: Performed By: #### L 501.9520, L502.0250, L503.0106, L500.4050, L503.6030, L100.0100, L503.6550 ####[facility] [address] [place], [address] Eosinophils/100 WBC (Bld) 2.1 % Normal 0-5 [facility] Comment on above: Performed By: #### L 501.9520, L502.0250, L503.0106, L500.4050, L503.6030, L100.0100, L503.6550 ####[facility] [address] [place], [address] Erythrocyte distribution width (RBC) [Ratio] 14.9 % High 11.6-14.6 [facility] Comment on above: Performed By: #### L 501.9520, L502.0250, L503.0106, L500.4050, L503.6030, L100.0100, L503.6550 ####[facility] [address] [place], [address] Hematocrit (Bld) [Volume fraction] 28.0 % Low 37-47 [facility] Comment on above: Performed By: #### L 501.9520, L502.0250, L503.0106, L500.4050, L503.6030, L100.0100, L503.6550 ####[facility] [address] [place], [address] Hemoglobin (Bld) [Mass/Vol] 8.3 g/dL Low 12.0-15.0 [facility] Comment on above: Performed By: #### L 501.9520, L502.0250, L503.0106, L500.4050, L503.6030, L100.0100, L503.6550 ####[facility] [address] [place], [address] IG% 1.600 High 0.0-0.9 [facility] Comment on above: Result Comment: IG% - Immature Granulocytes (promyelocytes, myelocytes and metamyelocytes) > 1% indicates that a LEFT SHIFT is Present. Performed By: #### L 501.9520, L502.0250, L503.0106, L500.4050, L503.6030, L100.0100, L503.6550 ####[facility] [address] [place], [address] Lymphocytes/100 WBC (Bld) 11.8 % Low 19-41 [facility] Comment on above: Performed By: #### L 501.9520, L502.0250, L503.0106, L500.4050, L503.6030, L100.0100, L503.6550 ####[facility] [address] [place], [address] MCH (RBC) [Entitic mass] 24.9 pg Low 27.0-32.0 [facility] Comment on above: Performed By: #### L 501.9520, L502.0250, L503.0106, L500.4050, L503.6030, L100.0100, L503.6550 ####[facility] [address] [place], [address] MCHC (RBC) [Mass/Vol] 29.6 g/dL Low 32-36 [facility] Comment on above: Performed By: #### L 501.9520, L502.0250, L503.0106, L500.4050, L503.6030, L100.0100, L503.6550 ####[facility] [address] [place], [address] MCV (RBC) [Entitic vol] 83.8 fL Normal 81-99 [facility] Comment on above: Performed By: #### L 501.9520, L502.0250, L503.0106, L500.4050, L503.6030, L100.0100, L503.6550 ####[facility] [address] [place], [address] Monocytes/100 WBC (Bld) 7.8 % Normal 0-10 [facility] Comment on above: Performed By: #### L 501.9520, L502.0250, L503.0106, L500.4050, L503.6030, L100.0100, L503.6550 ####[facility] [address] [place], [address] Neutrophils/100 WBC (Bld) 75.8 % High 47-70 [facility] Comment on above: Performed By: #### L 501.9520, L502.0250, L503.0106, L500.4050, L503.6030, L100.0100, L503.6550 ####[facility] [address] [place], [address] Nucleated RBC (Bld) [#/Vol] 0 10*3/uL Normal 0-5 [facility] Comment on above: Performed By: #### L 501.9520, L502.0250, L503.0106, L500.4050, L503.6030, L100.0100, L503.6550 ####[facility] [address] [place], [address] Platelet mean volume (Bld) [Entitic vol] 11.9 fL Normal 6.2-12.0 [facility] Comment on above: Performed By: #### L 501.9520, L502.0250, L503.0106, L500.4050, L503.6030, L100.0100, L503.6550 ####[facility] [address] [place], [address] Platelets (Bld) [#/Vol] 220 10*3/uL Normal 150-450 [facility] Comment on above: Performed By: #### L 501.9520, L502.0250, L503.0106, L500.4050, L503.6030, L100.0100, L503.6550 ####[facility] [address] [place], [address] RBC (Bld) [#/Vol] 3.34 10*6/uL Low 4.2-5.4 [facility] Comment on above: Performed By: #### L 501.9520, L502.0250, L503.0106, L500.4050, L503.6030, L100.0100, L503.6550 ####[facility] [address] [place], [address] RDW SD 45.2 fl High 35.1-43.9 [facility] Comment on above: Performed By: #### L 501.9520, L502.0250, L503.0106, L500.4050, L503.6030, L100.0100, L503.6550 ####[facility] [address] [place], [place], [phone]) WBC (Bld) [#/Vol] 7.1 10*3/uL Normal 4.4-11.0 [facility] Comment on above: Performed By: #### L 501.9520, L502.0250, L503.0106, L500.4050, L503.6030, L100.0100, L503.6550 ####[facility] [address] [place], [place], [id number] Carbon dioxide, total [Moles /volume] in Central venous bloodOrdered By: Desiree Tapia on 10-04-2024 CO2 [Moles/Vol] 20.1 mmol/L Low 21.0-32.0 [facility] Chloride assayOrdered By: Lasha Tapia on 10-04-2024 Chloride [Moles/Vol] 107 mmol/L 98-108 [facility] Comprehensive Metabolic Prof ilon 10-04-2024 Albumin [Mass/Vol] 3.9 g/dL Normal 3.4-4.8 [facility] Comment on above: Performed By: #### L 501.9520, L502.0250, L503.0106, L500.4050, L503.6030, L100.0100, L503.6550 ####[facility] [address] [place], [address] Albumin/Globulin [Mass ratio] 1.1 {ratio} Normal 0.9-2.4 [facility] Comment on above: Performed By: #### L 501.9520, L502.0250, L503.0106, L500.4050, L503.6030, L100.0100, L503.6550 ####[facility] [address] [place], [address] ALK PHOS 122 U/L High 35-104 [facility] Comment on above: Performed By: #### L 501.9520, L502.0250, L503.0106, L500.4050, L503.6030, L100.0100, L503.6550 ####[facility] [address] [place], [address] ALT [Catalytic activity/Vol] 21 U/L Normal <=34 [facility] Comment on above: Performed By: #### L 501.9520, L502.0250, L503.0106, L500.4050, L503.6030, L100.0100, L503.6550 ####[facility] [address] [place], [address] AST [Catalytic activity/Vol] 29 U/L Normal <=31 [facility] Comment on above: Performed By: #### L 501.9520, L502.0250, L503.0106, L500.4050, L503.6030, L100.0100, L503.6550 ####[facility] [address] [place], [address] Bilirubin [Mass/Vol] 0.70 mg/dL Normal 0.00-1.30 [facility] Comment on above: Performed By: #### L 501.9520, L502.0250, L503.0106, L500.4050, L503.6030, L100.0100, L503.6550 ####[facility] [address] [place], [address] BUN/CRE 13.8 RATIO Normal 10-20 [facility] Comment on above: Performed By: #### L 501.9520, L502.0250, L503.0106, L500.4050, L503.6030, L100.0100, L503.6550 ####[facility] [address] [place], [address] Calcium [Mass/Vol] 8.9 mg/dL Normal 7.6-11.0 [facility] Comment on above: Performed By: #### L 501.9520, L502.0250, L503.0106, L500.4050, L503.6030, L100.0100, L503.6550 ####[facility] [address] [place], [address] Chloride [Moles/Vol] 107 mmol/L Normal 98-108 [facility] Comment on above: Performed By: #### L 501.9520, L502.0250, L503.0106, L500.4050, L503.6030, L100.0100, L503.6550 ####[facility] [address] [place], [address] CO2 [Moles/Vol] 20.1 mmol/L Low 21.0-32.0 [facility] Comment on above: Performed By: #### L 501.9520, L502.0250, L503.0106, L500.4050, L503.6030, L100.0100, L503.6550 ####[facility] [address] [place], [address] Creatinine [Mass/Vol] 1.29 mg/dL High 0.70-1.20 [facility] Comment on above: Performed By: #### L 501.9520, L502.0250, L503.0106, L500.4050, L503.6030, L100.0100, L503.6550 ####[facility] [address] [place], [address] GAP 15 Normal 5-15 [facility] Comment on above: Performed By: #### L 501.9520, L502.0250, L503.0106, L500.4050, L503.6030, L100.0100, L503.6550 ####[facility] [address] [place], [address] GFR/1.73 sq M.predicted among non-blacks MDRD (S/P/Bld) [Vol rate/Area] 42 mL/min/{1.73_m2} Low >60 [facility] Comment on above: Result Comment: mL/m in/1.73m2 CKD-EPI Creatinine Equation (2020) Performed By: #### L 501.9520, L502.0250, L503.0106, L500.4050, L503.6030, L100.0100, L503.6550 ####[facility] [address] [place], [address] Globulin (S) [Mass/Vol] 3.6 g/dL Normal 2.2-4.2 [facility] Comment on above: Performed By: #### L 501.9520, L502.0250, L503.0106, L500.4050, L503.6030, L100.0100, L503.6550 ####[facility] [address] [place], [address] Glucose [Mass/Vol] 173 mg/dL High 70-99 [facility] Comment on above: Performed By: #### L 501.9520, L502.0250, L503.0106, L500.4050, L503.6030, L100.0100, L503.6550 ####[facility] [address] [place], [address] Potassium [Moles/Vol] 4.1 mmol/L Normal 3.3-5.1 [facility] Comment on above: Performed By: #### L 501.9520, L502.0250, L503.0106, L500.4050, L503.6030, L100.0100, L503.6550 ####[facility] [address] [place], [place], [id number] Sodium [Moles/Vol] 142 mmol/L Normal 133-145 [facility] Comment on above: Performed By: #### L 501.9520, L502.0250, L503.0106, L500.4050, L503.6030, L100.0100, L503.6550 ####[facility] [address] [place], [place], [phone](120) T PROT 7.5 g/dL Normal 5.9-8.4 [facility] Comment on above: Performed By: #### L 501.9520, L502.0250, L503.0106, L500.4050, L503.6030, L100.0100, L503.6550 ####[facility] [address] [place], [place], [id number] Urea nitrogen [Mass/Vol] 18 mg/dL Normal 4-19 [facility] Comment on above: Performed By: #### L 501.9520, L502.0250, L503.0106, L500.4050, L503.6030, L100.0100, L503.6550 ####[facility] [address] [place], [place], [address] Eosinophil percentageOrdered By: Desiree Tapia on 10-04-2024 Eosinophils/100 WBC (Bld) 2.1 % 0-5 [facility] Erythrocyte distribution wid th ratioOrdered By: Desiree Tapia on 10-04-2024 Erythrocyte distribution width (RBC) [Ratio] 14.9 % High 11.6-14.6 [facility] Erythrocyte distribution wid th standard deviationOrdered By: Desiree Tapia on 10-04-2024 Erythrocyte distribution width (RBC) [Ratio] 45.2 fl High 35.1-43.9 [facility] Ferritinon 10-04-2024 Ferritin [Mass/Vol] 14 ng/mL Low 22-378 [facility] Comment on above: Performed By: #### L 501.9520, L502.0250, L503.0106, L500.4050, L503.6030, L100.0100, L503.6550 ####[facility] [address] [place], [place], [address] Glomerular filtration rate ( GFR) estimation/1.73 sq m using serum, plasma, or whole bOrdered By: Desiree Tapia on 10-04-2024 GFR/1.73 sq M.predicted among non-blacks MDRD (S/P/Bld) [Vol rate/Area] 42 mL/min/{1.73_m2} Low >60 [facility] Comment on above: mL/min/1.73m2 CKD-EP I Creatinine Equation (2020) Hematocrit Auto (Bld) [Volum e fraction]Ordered By: Desiree Tapia on 10-04-2024 Hematocrit (Bld) [Volume fraction] 28.0 % Low 37-47 [facility] Hemoglobin measurementOrdere d By: Desiree Tapia on 10-04-2024 Hemoglobin (Bld) [Mass/Vol] 8.3 g/dL Low 12.0-15.0 [facility] Immature granulocytes/100 WB C Auto (Bld)Ordered By: Desiree Tapia on 10-04-2024 Immature granulocytes/100 WBC (Bld) 1.600 % High 0.0-0.9 [facility] Comment on above: IG% - Immature Granu locytes (promyelocytes, myelocytes and metamyelocytes) > 1% indicates that a LEFT SHIFT is Present. Iron measurement (mass/mass) Ordered By: Desiree Tapia on 10-04-2024 Iron (Unsp spec) [Mass/Mass] 29 ug/dL Low 50-170 [facility] Iron+Iron Binding Capacityon 10-04-2024 Iron [Mass/Vol] 29 ug/dL Low 50-170 [facility] Comment on above: Performed By: #### L 501.9520, L502.0250, L503.0106, L500.4050, L503.6030, L100.0100, L503.6550 ####[facility] [address] [place], [address] IRON SATURATION 7.0 Low 13-59 [facility] Comment on above: Performed By: #### L 501.9520, L502.0250, L503.0106, L500.4050, L503.6030, L100.0100, L503.6550 ####[facility] [address] [place], [address] TIBC 406 ug/dL Normal 250-450 [facility] Comment on above: Performed By: #### L 501.9520, L502.0250, L503.0106, L500.4050, L503.6030, L100.0100, L503.6550 ####[facility] [address] [place], [address] UIBC 377 ug/dL Normal 228-428 [facility] Comment on above: Performed By: #### L 501.9520, L502.0250, L503.0106, L500.4050, L503.6030, L100.0100, L503.6550 ####[facility] [address] [place], [address] Laboratory - Chemistry and C hemistry - challengeOrdered By: Desiree Tapia on 10-04-2024 AST [Catalytic activity/Vol] 29 U/L <32 [facility] MCV (mean corpuscular volume ) determinationOrdered By: Desiree Tapia on 10-04-2024 MCV (RBC) [Entitic vol] 83.8 fL 81-99 [facility] Mean corpuscular hemoglobin (MCH) determinationOrdered By: Desiree Tapia on 10-04-2024 MCH (RBC) [Entitic mass] 24.9 pg Low 27.0-32.0 [facility] Mean corpuscular hemoglobin concentration (MCHC) determinationOrdered By: Desiree Tapia on 10-04-2024 MCHC (RBC) [Mass/Vol] 29.6 g/dL Low 32-36 [facility] Mean platelet volume determi nationOrdered By: Desiree Tapia on 10-04-2024 Platelet mean volume (Bld) [Entitic vol] 11.9 fL 6.2-12.0 [facility] Microalb:Creat Ratio,Random URon 10-04-2024 MALB:CREAT 327.0 mg/g CRE High <30 mg/g CRE [facility] Comment on above: Performed By: #### L 501.9520, L502.0250, L503.0106, L500.4050, L503.6030, L100.0100, L503.6550 ####[facility] [address] [place], [place], [id number] MICROALBUMIN,UR 533.0 mg/L Normal <20 mg/L [facility] Comment on above: Performed By: #### L 501.9520, L502.0250, L503.0106, L500.4050, L503.6030, L100.0100, L503.6550 ####[facility] [address] [place], [place], [id number] Monocyte percentageOrdered B y: Desiree Tapia on 10-04-2024 Monocytes/100 WBC (Bld) 7.8 % 0-10 [facility] Neutrophil percentageOrdered By: Desiree Tapia on 10-04-2024 Neutrophils/100 WBC (Bld) 75.8 % High 47-70 [facility] No Panel InformationOrdered By: Desriee Tapia on 10-04-2024 Unsaturated Iron Binding Capacity 377 ug/dL 228-428 [facility] Nucleated red blood cell per centageOrdered By: Desiree Tapia on 10-04-2024 Nucleated RBC/100 WBC (Bld) [Ratio] 0 % 0-5 [facility] Platelet countOrdered By: Lasha Tapia on 10-04-2024 Platelets (Bld) [#/Vol] 220 10*3/uL 150-450 [facility] Potassium measurement (mass/ volume)Ordered By: Desiree Tapia on 10-04-2024 Potassium (Unsp spec) [Mass/Vol] 4.1 mmol/L 3.3-5.1 [facility] RBC Auto (Bld) [#/Vol]Ordere d By: Desiree Tapia on 10-04-2024 RBC (Bld) [#/Vol] 3.34 10*6/uL Low 4.2-5.4 [facility] Random urine creatinine nick urement (mass/volume)Ordered By: Desiree Tapia on 10-04-2024 Creatinine Unsp time (U) [Mass/Vol] 163.00 mg/dL 28.00-217.00 [facility] Serum creatinine measurement (mass/volume)Ordered By: Desiree Tapia on 10-04-2024 Creatinine [Mass/Vol] 1.29 mg/dL High 0.70-1.20 [facility] Serum globulin measurementOr dered By: Desiree Tapia on 10-04-2024 Globulin (S) [Mass/Vol] 3.6 g/dL 2.2-4.2 [facility] Serum glucose measurement (m ass/volume)Ordered By: Desiree Tapia on 10-04-2024 Glucose [Mass/Vol] 173 mg/dL High 70-99 [facility] Serum or plasma alanine mao otransferase (ALT) measurementOrdered By: Desiree Tapia on 10-04-2024 ALT [Catalytic activity/Vol] 21 U/L <35 [facility] Serum or plasma albumin nick urement (mass/volume)Ordered By: Desiree Tapia on 10-04-2024 Albumin [Mass/Vol] 3.9 g/dL 3.4-4.8 [facility] Serum or plasma albumin/glob ulin mass ratioOrdered By: Desiree Tapia on 10-04-2024 Albumin/Globulin [Mass ratio] 1.1 {ratio} 0.9-2.4 [facility] Serum or plasma alkaline kathleen sphatase measurementOrdered By: Desiree Tapia on 10-04-2024 ALP [Catalytic activity/Vol] 122 U/L High 35-104 [facility] Serum or plasma calcium nick urement (mass/volume)Ordered By: Desiree Tapia on 10-04-2024 Calcium [Mass/Vol] 8.9 mg/dL 7.6-11.0 [facility] Serum or plasma ferritin bacilio surement (mass/volume)Ordered By: Desiree Tapia on 10-04-2024 Ferritin [Mass/Vol] 14 ng/mL Low 22-378 [facility] Serum or plasma iron saturat ion measurement (mass fraction)Ordered By: Desiree Tapia on 10-04-2024 Iron saturation [Mass fraction] 7.0 % Low 13-59 [facility] Serum or plasma urea nitroge n measurement (mass/volume)Ordered By: Desiree Tapia on 10-04-2024 Urea nitrogen [Mass/Vol] 18 mg/dL 4-19 [facility] Sodium levelOrdered By: Alvina Tapia on 10-04-2024 Sodium [Moles/Vol] 142 mmol/L 133-145 [facility] TSH DL <= 0.005 mIU/L QnOrde red By: Desiree Tapia on 10-04-2024 TSH Qn 4.760 uIU/mL High 0.300-4.200 [facility] Thyroid Stim Hormone (TSH)on 10-04-2024 TSH 4.760 uIU/mL High 0.300-4.200 [facility] Comment on above: Performed By: #### L 501.9520, L502.0250, L503.0106, L500.4050, L503.6030, L100.0100, L503.6550 ####[facility] [address] [place], [address] Total proteinOrdered By: Hermes Tapia on 10-04-2024 Protein [Mass/Vol] 7.5 g/dL 5.9-8.4 [facility] Urine albumin measurement wi detection limit of 20 mg/L or less (mass/volume)Ordered By: Desiree Tapia on 10-04-2024 Albumin DL <= 20 mg/L (U) [Mass/Vol] 533.0 mg/L <20 mg/L [facility] Vitamin B12on 10-04-2024 Cobalamin (Vitamin B12) [Mass/Vol] 536 pg/mL Normal 180-914 [facility] Comment on above: Performed By: #### L 501.9520, L502.0250, L503.0106, L500.4050, L503.6030, L100.0100, L503.6550 ####[facility] [address] [place], [address] Vitamin B12 ser/plasOrdered By: Desiree Tapia on 10-04-2024 Cobalamin (Vitamin B12) [Mass/Vol] 536 pg/mL 180-914 [facility] White blood cell (WBC) count Ordered By: Desiree Tapia on 10-04-2024 WBC (Bld) [#/Vol] 7.1 10*3/uL 4.4-11.0 [facility] Modified Barium Swallow Stud yon 08-29-2024 Modified Barium Swallow Study [facility] Speech Pathology [address] [place] [address] Modified Barium Swallow Study MR#: [id number] Acct: [id number] Name: SANDIE ANGELES DAWSON Rep #: [id number] : 1945 79 From: Mandie Pham M.A., [facility] [facility] Modified Barium Swallow Patient Information Study Date: 08/29/24 Study Time: 13:00 Direct Billable Minutes: 78 Total Minutes procedure reportin Diagnosis: Dysphagia R13.10 Referring Physician: Surendra Hidalgo Reason for Referral: The patient was referred for MBSS by neurologist, Dr. Hidlago, due to pt reporting to him concerns [...] in the lower esophagus w/ retrograde flow. [place] Thick Liquid via small single sip: cup: [...] esophagus. Recommendations (more content not included)... Normal [facility] Neurology Visit Reporton Neurology Visit Report [facility] [address], [address] [place] [address] OFFICE VISIT Date of Service: 06/28/24 MR#: [id number] Acct: [id number] Name: SANDIE ANGELES DAWSON Rep #: [id number] : 1945 Provider: Dr. Surendra vergara MD Age/Sex: 79/F Location: [facility] [place]. Status: Signed HPI HPI Chief Complaint: Fatigue, [...] the eye directly. She has seen an laboratory equipment installer. She was treated with a course of [...] in the toes. She takes acetaminophen and ezcy-eik-xtykylc ibuprofen once or twice daily and this [...] however the patient did not see a meat butcher. Right ankle x-rays revealed mild soft tissue [...] with post (more content not included)... Normal [facility] Urgent Care Visit Reporton 0 06-28-2024 Urgent Care Visit Report [facility] [address], [address] [place] [address] OFFICE VISIT Date of Service: 06/28/24 MR#: [id number] Acct: [id number] Name: SANDIE ANGELES DAWSON Rep #: [id number] : 1945 Provider: SUZETTE Whitman Age/Sex: 79/F Location: [facility] Status: Signed Intake Vital Signs 06/28/24 13:05 [...] R EAR Chief Complaint: right ear plugged Paleontological Helper Required: No Is patient in pain?: No [...] by Dr. Hidalgo for eval right ear. [facility] Medical History (Updated 06/28/24 @ 15:34 by [...] in: other frequency: 1-2 times per week luna/spiritism: Jewish seatbelt use: always HPI HPI Chief Complaint: right ear plugged Details: SANDIE ANGELES, is a 79 F who presents to the office today for right ear cerumen impaction removal as noticed by neurology. Patient notes localized tender to the same though no complaints of fever, chills, sweats, lightheadedness/dizzine ss, nausea/vomiting. Patient admits to using Q-tips to clean her ears frequently. No wuek-cnf-pdxojfy medications taken to assist with current symptoms. No other associated symptoms and no other alleviating/aggravating factors. ROS Const Constitutional: No other (As above) Exam Const General: cooperative, healthy appearing and no acute distress Orientation: alert and awake HENCA Head: normal to inspection Ears: hearing grossly [...] of Cerumen: (more content not included)... Normal [facility] Duplex ultrasound of carotid artery reportOrdered By: Arya Argueta on 04-20-2024 Study report [facility] [address] [address] Carotid Duplex Ultrasound 04/19/24 0948 MR#: [id number] Acct: [id number] Name: SANDIE ANGELES Rep #:[id number] : 1945 78 From: Arya Brown Attending Dr: SUZETTE Cavazos Stat us: REG CLI Ordering Dr: Haley Menard Date: Location: [facility] Sex: F C Admitted: Reason For Study Reason For Study: CAROTID STENOSIS Rt. Velocities/BP Lt. Velocities/BP Prox CCA 79.9/10.0 cm/sec. Prox CCA 107.6/13.0 cm/sec. Mid CCA 75.2/11.9 cm/sec. Mid SPK626.7/14.2 cm/sec. Dist CCA 72.4/8.1 cm/sec. Dist CCA [...] the left vertebral artery. Procedure Carotid Duplex 33668. This is a Carotid Duplex examination using [...] ~ Date Dictated: 04/19/24947 Date Transcribed: 04/20/24705 Chef Passenger Vessel: Signed [facility] Work Phone: Carotid Duplex Ultrasoundon 04-19-2024 Carotid Duplex Ultrasound [facility] [address] [place] [address] Carotid Duplex Ultrasound 04/19/24947 MR#: [id number] Acct: [id number] Name: SANDIE ANGELES DAWSON Rep #: [id number] : 1945 78 From: Arya Argueta MD Attending Dr: SUZETTE Cavazos Status: REG CLI Ordering Dr: Haley Menard Date: 04/19/24 Location: [facility] Sex: F C Admitted: Reason For Study [...] the left vertebral artery. Procedure Carotid Duplex 04921. This is a Carotid Duplex examination using [...] MD Date Dictated: 04/19/24947 Date Transcribed: 04/20/24705 Chef Passenger Vessel: Signed [facility] MR/BMS.BVSon 04-19-2024 MR/BMS.S [facility] Vascular Surgery 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 Normal [facility] Absolute lymphocyte countOrd ered By: Desiree Tapia on 04-01-2024 Lymphocytes Auto (Unsp spec) [#/Vol] 0.75 10*3/uL Low 0.83-4.51 [facility] Absolute neutrophil countOrd ered By: Desiree Tapia on 04-01-2024 Neutrophils (Bld) [#/Vol] 3.8 10*3/uL 2.0-7.7 [facility] Albumin to globulin ratioOrd ered By: Desiree Tapia on 04-01-2024 Albumin/Globulin [Mass ratio] 0.7 {ratio} Low 0.9-2.4 [facility] Automated lymphocyte count a s percentage of total leukocytesOrdered By: Desiree Tapia on 02-21-2025 Lymphocytes/100 WBC Auto (Unsp spec) 14.6 % Low 19-41 [facility] Basophil percentageOrdered B y: Desiree Tapia on 04-01-2024 Basophils/100 WBC (Bld) 1.2 % High 0-1 [facility] Bilirubin, totalOrdered By: Desiree Sharpgeraroldan on 04-01-2024 Bilirubin [Mass/Vol] 0.50 mg/dL 0.20-1.00 [facility] Comment on above: For patients on eltr ombopag therapy, use of Dimension [place] TBIL is not recommended. Blood urea nitrogen (BUN)/cr eatinine ratioOrdered By: Desiree Lilaumer on 04-01-2024 Urea nitrogen/Creatinine [Mass ratio] 17.4 mg/mg 10-20 [facility] CBC W/Diff, Automatedon 03-13 Absolute Lymph 0.75 X10 3/uL Low 0.83-4.51 [facility] Comment on above: Performed By: #### L 500.4050, L501.9520, L503.6030, L503.6550, L503.0105, L100.0100 ####[facility] [address] [place], [address] Absolute Neut 3.8 X10 3/uL Normal 2.0-7.7 [facility] Comment on above: Performed By: #### L 500.4050, L501.9520, L503.6030, L503.6550, L503.0105, L100.0100 ####[facility] [address] [place], [address] Basophils/100 WBC (Bld) 1.2 % High 0-1 [facility] Comment on above: Performed By: #### L 500.4050, L501.9520, L503.6030, L503.6550, L503.0105, L100.0100 ####[facility] [address] [place], [address] Eosinophils/100 WBC (Bld) 2.7 % Normal 0-5 [facility] Comment on above: Performed By: #### L 500.4050, L501.9520, L503.6030, L503.6550, L503.0105, L100.0100 ####[facility] [address] [place], [address] Erythrocyte distribution width (RBC) [Ratio] 14.0 % Normal 11.6-14.6 [facility] Comment on above: Performed By: #### L 500.4050, L501.9520, L503.6030, L503.6550, L503.0105, L100.0100 ####[facility] [address] [place], [address] Hematocrit (Bld) [Volume fraction] 38.4 % Normal 37-47 [facility] Comment on above: Performed By: #### L 500.4050, L501.9520, L503.6030, L503.6550, L503.0105, L100.0100 ####[facility] [address] [place], [address] Hemoglobin (Bld) [Mass/Vol] 12.5 g/dL Normal 12.0-15.0 [facility] Comment on above: Performed By: #### L 500.4050, L501.9520, L503.6030, L503.6550, L503.0105, L100.0100 ####[facility] [address] [place], [address] IG% 0.200 Normal 0.0-0.9 [facility] Comment on above: Result Comment: IG% - Immature Granulocytes (promyelocytes, myelocytes and metamyelocytes) > 1% indicates that a LEFT SHIFT is Present. Performed By: #### L 500.4050, L501.9520, L503.6030, L503.6550, L503.0105, L100.0100 ####[facility] [address] [place], [address] Lymphocytes/100 WBC (Bld) 14.6 % Low 19-41 [facility] Comment on above: Performed By: #### L 500.4050, L501.9520, L503.6030, L503.6550, L503.0105, L100.0100 ####[facility] [address] [place], [address] MCH (RBC) [Entitic mass] 30.6 pg Normal 27.0-32.0 [facility] Comment on above: Performed By: #### L 500.4050, L501.9520, L503.6030, L503.6550, L503.0105, L100.0100 ####[facility] [address] [place], [address] MCHC (RBC) [Mass/Vol] 32.6 g/dL Normal 32-36 [facility] Comment on above: Performed By: #### L 500.4050, L501.9520, L503.6030, L503.6550, L503.0105, L100.0100 ####[facility] [address] [place], [address] MCV (RBC) [Entitic vol] 94.1 fL Normal 81-99 [facility] Comment on above: Performed By: #### L 500.4050, L501.9520, L503.6030, L503.6550, L503.0105, L100.0100 ####[facility] [address] [place], [address] Monocytes/100 WBC (Bld) 7.0 % Normal 0-10 [facility] Comment on above: Performed By: #### L 500.4050, L501.9520, L503.6030, L503.6550, L503.0105, L100.0100 ####[facility] [address] [place], [address] Neutrophils/100 WBC (Bld) 74.3 % High 47-70 [facility] Comment on above: Performed By: #### L 500.4050, L501.9520, L503.6030, L503.6550, L503.0105, L100.0100 ####[facility] [address] [place], [address] Nucleated RBC (Bld) [#/Vol] 0 10*3/uL Normal 0-5 [facility] Comment on above: Performed By: #### L 500.4050, L501.9520, L503.6030, L503.6550, L503.0105, L100.0100 ####[facility] [address] [place], [address] Platelet mean volume (Bld) [Entitic vol] 11.8 fL Normal 6.2-12.0 [facility] Comment on above: Performed By: #### L 500.4050, L501.9520, L503.6030, L503.6550, L503.0105, L100.0100 ####[facility] [address] [place], [address] Platelets (Bld) [#/Vol] 148 10*3/uL Low 150-450 [facility] Comment on above: Performed By: #### L 500.4050, L501.9520, L503.6030, L503.6550, L503.0105, L100.0100 ####[facility] [address] [place], [address] RBC (Bld) [#/Vol] 4.08 10*6/uL Low 4.2-5.4 [facility] Comment on above: Performed By: #### L 500.4050, L501.9520, L503.6030, L503.6550, L503.0105, L100.0100 ####[facility] [address] [place], [address] RDW SD 48.0 fl High 35.1-43.9 [facility] Comment on above: Performed By: #### L 500.4050, L501.9520, L503.6030, L503.6550, L503.0105, L100.0100 ####[facility] [address] [place], [address] WBC (Bld) [#/Vol] 5.2 10*3/uL Normal 4.4-11.0 [facility] Comment on above: Performed By: #### L 500.4050, L501.9520, L503.6030, L503.6550, L503.0105, L100.0100 ####[facility] [address] [place], [place], [id number] Carbon dioxide measurementOr dered By: Desiree Tapia on 04-01-2024 CO2 [Moles/Vol] 25.0 mmol/L 21.0-32.0 [facility] Chloride measurementOrdered By: Desiree Tapia on 04-01-2024 Chloride [Moles/Vol] 108 mmol/L High 98-107 [facility] Comprehensive Metabolic Prof ilon 04-01-2024 Albumin [Mass/Vol] 3.3 g/dL Normal 3.2-5.0 [facility] Comment on above: Performed By: #### L 500.4050, L501.9520, L503.6030, L503.6550, L503.0105, L100.0100 ####[facility] [address] [place], [address] Albumin/Globulin [Mass ratio] 0.7 {ratio} Low 0.9-2.4 [facility] Comment on above: Performed By: #### L 500.4050, L501.9520, L503.6030, L503.6550, L503.0105, L100.0100 ####[facility] [address] [place], [address] ALK P 129 U/L High 45-117 [facility] Comment on above: Performed By: #### L 500.4050, L501.9520, L503.6030, L503.6550, L503.0105, L100.0100 ####[facility] [address] [place], [address] ALT [Catalytic activity/Vol] 35 U/L Normal 13-56 [facility] Comment on above: Performed By: #### L 500.4050, L501.9520, L503.6030, L503.6550, L503.0105, L100.0100 ####[facility] [address] [place], [address] AST [Catalytic activity/Vol] 37 U/L Normal 15-37 [facility] Comment on above: Performed By: #### L 500.4050, L501.9520, L503.6030, L503.6550, L503.0105, L100.0100 ####[facility] [address] [place], [address] Bilirubin [Mass/Vol] 0.50 mg/dL Normal 0.20-1.00 [facility] Comment on above: Result Comment: For patients on eltrombopag therapy, use of Dimension [place] TBIL is not recommended. Performed By: #### L 500.4050, L501.9520, L503.6030, L503.6550, L503.0105, L100.0100 ####[facility] [address] [place], [address] BUN/CRE 17.4 RATIO Normal 10-20 [facility] Comment on above: Performed By: #### L 500.4050, L501.9520, L503.6030, L503.6550, L503.0105, L100.0100 ####[facility] [address] [place], [address] CA,Total 9.4 mg/dL Normal 8.5-10.1 [facility] Comment on above: Performed By: #### L 500.4050, L501.9520, L503.6030, L503.6550, L503.0105, L100.0100 ####[facility] [address] [place], [address] Chloride [Moles/Vol] 108 mmol/L High 98-107 [facility] Comment on above: Performed By: #### L 500.4050, L501.9520, L503.6030, L503.6550, L503.0105, L100.0100 ####[facility] [address] [place], [address] CO2 [Moles/Vol] 25.0 mmol/L Normal 21.0-32.0 [facility] Comment on above: Performed By: #### L 500.4050, L501.9520, L503.6030, L503.6550, L503.0105, L100.0100 ####[facility] [address] [place], [address] Creatinine [Mass/Vol] 1.32 mg/dL High 0.55-1.02 [facility] Comment on above: Result Comment: The validity of the calculated GFR GFRAA in patients over 70 years has not been determined. Clinical correlation is essential. Performed By: #### L 500.4050, L501.9520, L503.6030, L503.6550, L503.0105, L100.0100 ####[facility] [address] [place], [address] EST GFR - AA 50 mL/min Low >60 [facility] Comment on above: Result Comment: Afri can Hungarian GFR Calc Performed By: #### L 500.4050, L501.9520, L503.6030, L503.6550, L503.0105, L100.0100 ####[facility] [address] [place], [address] GAP 6 Normal 5-15 [facility] Comment on above: Performed By: #### L 500.4050, L501.9520, L503.6030, L503.6550, L503.0105, L100.0100 ####[facility] [address] [place], [address] GFR/1.73 sq M.predicted among non-blacks MDRD (S/P/Bld) [Vol rate/Area] 41 mL/min/{1.73_m2} Low >60 [facility] Comment on above: Result Comment: Non- GFR Calc Performed By: #### L 500.4050, L501.9520, L503.6030, L503.6550, L503.0105, L100.0100 ####[facility] [address] [place], [address] Globulin (S) [Mass/Vol] 4.7 g/dL High 2.2-4.2 [facility] Comment on above: Performed By: #### L 500.4050, L501.9520, L503.6030, L503.6550, L503.0105, L100.0100 ####[facility] [address] [place], [address] Glucose [Mass/Vol] 163 mg/dL High 74-106 [facility] Comment on above: Result Comment: Fast ing Glucose result greater than or equal to 126 mg/dL suggests DIABETES MELLITUS per A.D.A. criteria. Performed By: #### L 500.4050, L501.9520, L503.6030, L503.6550, L503.0105, L100.0100 ####[facility] [address] [place], [address] Potassium [Moles/Vol] 4.5 mmol/L Normal 3.5-5.1 [facility] Comment on above: Performed By: #### L 500.4050, L501.9520, L503.6030, L503.6550, L503.0105, L100.0100 ####[facility] [address] [place], [address] Sodium [Moles/Vol] 140 mmol/L Normal 136-145 [facility] Comment on above: Performed By: #### L 500.4050, L501.9520, L503.6030, L503.6550, L503.0105, L100.0100 ####[facility] [address] [place], [address] T PROT 8.0 g/dL Normal 6.4-8.2 [facility] Comment on above: Performed By: #### L 500.4050, L501.9520, L503.6030, L503.6550, L503.0105, L100.0100 ####[facility] [address] [place], [address] Urea nitrogen [Mass/Vol] 23 mg/dL High 7-18 [facility] Comment on above: Performed By: #### L 500.4050, L501.9520, L503.6030, L503.6550, L503.0105, L100.0100 ####[facility] [address] [place], [address] Eosinophil percentageOrdered By: Desiree Tapia on 04-01-2024 Eosinophils/100 WBC (Bld) 2.7 % 0-5 [facility] Erythrocyte distribution wid th ratioOrdered By: Desiree Tapia on 04-01-2024 Erythrocyte distribution width (RBC) [Ratio] 14.0 % 11.6-14.6 [facility] Erythrocyte distribution wid th standard deviationOrdered By: Desiree Tapia on 04-01-2024 Erythrocyte distribution width (RBC) [Entitic vol] 48.0 fL High 35.1-43.9 [facility] Erythrocyte distribution width (RBC) [Ratio] 48.0 fl High 35.1-43.9 [facility] Estimated glomerular filtrat ion rate (GFR) AmericanOrdered By: Desiree Tapia on 04-01-2024 Estimated GFR (MDRD) Amer 50 mL/min Low >60 [facility] Comment on above: GFR Calc Ferritinon 04-01-2024 Ferritin [Mass/Vol] 34 ng/mL Normal 8-252 [facility] Comment on above: Performed By: #### L 500.4050, L501.9520, L503.6030, L503.6550, L503.0105, L100.0100 ####[facility] [address] [place], [place], [address] Ferritin measurementOrdered By: Desiree Tapia on 04-01-2024 Ferritin [Mass/Vol] 34 ng/mL 8-252 [facility] Glomerular filtration rate ( GFR) estimationOrdered By: Desiree Tapia on 04-01-2024 Estimated GFR (MDRD) Non-Af Amer 41 mL/min Low >60 [facility] Comment on above: Non- GFR Calc GFR/1.73 sq M.predicted among non-blacks MDRD (S/P/Bld) [Vol rate/Area] 41 mL/min/{1.73_m2} Low >60 [facility] Comment on above: Non- GFR Calc Glucose measurementOrdered B y: Desiree Tapia on 04-01-2024 Glucose [Mass/Vol] 163 mg/dL High 74-106 [facility] Comment on above: Fasting Glucose resu lt greater than or equal to 126 mg/dL suggests DIABETES MELLITUS per A.D.A. criteria. Hematocrit Auto (Bld) [Volum e fraction]Ordered By: Desiree Tapia on 04-01-2024 Hematocrit (Bld) [Volume fraction] 38.4 % 37-47 [facility] Hemoglobin measurementOrdere d By: Desiree Tapia on 04-01-2024 Hemoglobin (Bld) [Mass/Vol] 12.5 g/dL 12.0-15.0 [facility] Immature granulocytes/100 WB C Auto (Bld)Ordered By: Desiree Tapia on 04-01-2024 Immature granulocytes/100 WBC (Bld) 0.200 % 0.0-0.9 [facility] Comment on above: IG% - Immature Granu locytes (promyelocytes, myelocytes and metamyelocytes) > 1% indicates that a LEFT SHIFT is Present. Iron (Unsp spec) [Mass/Mass] Ordered By: Desireejesse Tapia on 04-01-2024 Iron [Mass/Vol] 53 ug/dL 50-170 [facility] Iron measurement (mass/mass) Ordered By: Desiree Tapia on 04-01-2024 Iron (Unsp spec) [Mass/Mass] 53 ug/dL 50-170 [facility] Iron saturation [Mass fracti on]Ordered By: Desiree Tapia on 04-01-2024 Iron Saturation 15.2 % 15.0-55.0 [facility] Iron+Iron Binding Capacityon 04-01-2024 Iron [Mass/Vol] 53 ug/dL Normal 50-170 [facility] Comment on above: Performed By: #### L 500.4050, L501.9520, L503.6030, L503.6550, L503.0105, L100.0100 ####[facility] [address] [place], [place], [id number] IRON SATURATION 15.2 Normal 15.0-55.0 [facility] Comment on above: Performed By: #### L 500.4050, L501.9520, L503.6030, L503.6550, L503.0105, L100.0100 ####[facility] [address] [place], [place], [phone]) TIBC 348 ug/dL Normal 250-450 [facility] Comment on above: Performed By: #### L 500.4050, L501.9520, L503.6030, L503.6550, L503.0105, L100.0100 ####[facility] [address] [place], [address] Laboratory - Chemistry and C hemistry - challengeOrdered By: Desiree Tapia on 04-01-2024 AST [Catalytic activity/Vol] 37 U/L 15-37 [facility] Lymphocytes Auto (Unsp spec) [#/Vol]Ordered By: Desiree Tapia on 04-01-2024 Lymphocytes (Bld) [#/Vol] 0.75 10*3/uL Low 0.83-4.51 [facility] Lymphocytes/100 WBC Auto (Un sp spec)Ordered By: Desiree Tapia on 04-01-2024 Lymphocytes/100 WBC (Bld) 14.6 % Low 19-41 [facility] MCV (mean corpuscular volume ) determinationOrdered By: Desiree Tapia on 04-01-2024 MCV (RBC) [Entitic vol] 94.1 fL 81-99 [facility] Mean corpuscular hemoglobin (MCH) determinationOrdered By: Desiree Tapia on 04-01-2024 MCH (RBC) [Entitic mass] 30.6 pg 27.0-32.0 [facility] Mean corpuscular hemoglobin concentration (MCHC) determinationOrdered By: Desiree Tapia on 04-01-2024 MCHC (RBC) [Mass/Vol] 32.6 g/dL 32-36 [facility] Mean platelet volume determi nationOrdered By: Desiree Tapia on 04-01-2024 Platelet mean volume (Bld) [Entitic vol] 11.8 fL 6.2-12.0 [facility] Monocyte percentageOrdered B y: Desiree Tapia on 04-01-2024 Monocytes/100 WBC (Bld) 7.0 % 0-10 [facility] Neutrophil percentageOrdered By: Desiree Tapia on 04-01-2024 Neutrophils/100 WBC (Bld) 74.3 % High 47-70 [facility] Nucleated red blood cell per centageOrdered By: Desiree Tapia on 02-21-2025 Nucleated RBC/100 WBC (Bld) [Ratio] 0 % 0-5 [facility] Platelet countOrdered By: Lasha eyad Regina on 04-01-2024 Platelets (Bld) [#/Vol] 148 10*3/uL Low 150-450 [facility] Potassium measurementOrdered By: Desiree Tapia on 04-01-2024 Potassium [Moles/Vol] 4.5 mmol/L 3.5-5.1 [facility] RBC Auto (Bld) [#/Vol]Ordere d By: Desiree Tapia on 04-01-2024 RBC (Bld) [#/Vol] 4.08 10*6/uL Low 4.2-5.4 [facility] Serum anion gap measurementO rdered By: Desiree Tapia on 04-01-2024 Anion gap [Moles/Vol] 6 mmol/L 5-15 [facility] Serum globulin measurementOr dered By: Desiree Tapia on 04-01-2024 Globulin (S) [Mass/Vol] 4.7 g/dL High 2.2-4.2 [facility] Serum or plasma alanine mao otransferase (ALT) measurementOrdered By: Desiree Tapia on 04-01-2024 ALT [Catalytic activity/Vol] 35 U/L 13-56 [facility] Serum or plasma albumin nick urement (mass/volume)Ordered By: Desiree Tapia on 04-01-2024 Albumin [Mass/Vol] 3.3 g/dL 3.2-5.0 [facility] Serum or plasma alkaline kathleen sphatase measurementOrdered By: Desiree Tapia on 04-01-2024 ALP [Catalytic activity/Vol] 129 U/L High 45-117 [facility] Serum or plasma calcium nick urement (mass/volume)Ordered By: Desiree Tapia on 04-01-2024 Calcium [Mass/Vol] 9.4 mg/dL 8.5-10.1 [facility] Serum or plasma creatinine m easurement (mass/volume)Ordered By: Desiree Tapia on 04-01-2024 Creatinine [Mass/Vol] 1.32 mg/dL High 0.55-1.02 [facility] Comment on above: The validity of the calculated GFR & GFRAA in patients over 70 years has not been determined. Clinical correlation is essential. Serum or plasma iron saturat ion measurement (mass fraction)Ordered By: Desiree Tapia on 04-01-2024 Iron saturation [Mass fraction] 15.2 % 15.0-55.0 [facility] Serum or plasma thyroid stim ulating hormone (TSH) measurement (units/volume)Ordered By: Desiree Tapia on 04-01-2024 TSH Qn 3.250 uIU/mL 0.358-3.740 [facility] Serum or plasma urea nitroge n measurement (mass/volume)Ordered By: Desiree Tapia on 04-01-2024 Urea nitrogen [Mass/Vol] 23 mg/dL High 7-18 [facility] Sodium levelOrdered By: Alvina Tapia on 04-01-2024 Sodium [Moles/Vol] 140 mmol/L 136-145 [facility] TIBCOrdered By: Desiree harvey on 04-01-2024 Total Iron Binding Capacity 348 ug/dL 250-450 [facility] TSH QnOrdered By: Desiree uribe on 04-01-2024 Thyroid Stimulating Hormone (TSH) 3.250 uIU/mL 0.358-3.740 [facility] Thyroid Stim Hormone (TSH)on 04-01-2024 TSH 3.250 uIU/mL Normal 0.358-3.740 [facility] Comment on above: Performed By: #### L 500.4050, L501.9520, L503.6030, L503.6550, L503.0105, L100.0100 ####[facility] [address] [place], [place], [id number] Total proteinOrdered By: Hermes Tapia on 04-01-2024 Protein [Mass/Vol] 8.0 g/dL 6.4-8.2 [facility] Vitamin B12on 04-01-2024 Cobalamin (Vitamin B12) [Mass/Vol] 550 pg/mL Normal 211-911 [facility] Comment on above: Performed By: #### L 500.4050, L501.9520, L503.6030, L503.6550, L503.0105, L100.0100 ####[facility] [address] [place], [address] Vitamin B12 measurementOrder ed By: Desiree Tapia on 04-01-2024 Cobalamin (Vitamin B12) [Mass/Vol] 550 pg/mL 211-911 [facility] White blood cell (WBC) count Ordered By: Desiree Tapia on 04-01-2024 WBC (Bld) [#/Vol] 5.2 10*3/uL 4.4-11.0 [facility] Neurology Visit Reporton Neurology Visit Report [facility] [address], [address] [place], [place] [address] OFFICE VISIT Date of Service: 03/22/24 MR#: [id number] Acct: [id number] Name: SANDIE ANGELES DAWSON Rep #: [id number] : 1945 Provider: Dr. Surendra vergara MD Age/Sex: 78/F Location: [facility] [place]. Status: Signed HPI HPI Chief Complaint: Fatigue, [...] the eye directly. She has seen an laboratory equipment installer. She was treated with a course of [...] in the toes. She takes acetaminophen and [id number] ibuprofen once or twice daily and this [...] however the patient did not see a meat butcher. Right ankle x-rays revealed mild soft tissue [...] her martin (more content not included)... Normal [facility] Urine Cultureon 01-13-2024 [facility] Klebsiella pneumonia e sp pneum [place] Count >100,000 Klebsiella pneumoniae sp pneum: REACTION [...] TMP SMX Islt BRISSA <=[address] [facility] Comment on above: Performed By: #### M 101.9142 ####[facility] [address] [place], [place], [id number] Urine cultureOrdered By: Hermes Tapia on 01-11-2024 Bacteria identified Cx Nom (U) Klebsiella pneumoniae sp pneum Abnormal [facility] Bacteria identified Cx Nom (U) Klebsiella pneumoniae sp pneum Abnormal [facility] Bedside Glucoseon 01-04-2024 FINGERSTICK GLU 99 mg/dL Normal 74-106 [facility] Comment on above: Result Comment: TORY JOSEPH OF PATIENT CARE PER NURSING PROTOCOL Performed By: #### L 501.080 #### [facility] [facility] [address] [place], [address] EGD Reporton 01-04-2024 EGD Report [facility] Medical Records Department [address] [place] [address] EGD Report MR#: [id number] Acct: [id number] Name: SANDIE ANGELES DAWSON Rep #: [id number] : 1945 78 From: Moy Ramos DO PCP: Dr. Desiree Tapia MD Status:[facility] Patient Name: Sandie Angeles Procedure Date: 01/04/2024 [...] 12 weeks. Procedure Code(s): --- Professional --- 66545, 59, Esophagogastroduodenosc opy, flexible, transoral; with control of bleeding, any method 39025, 51, Esophagogastroduodenosc opy, flexible, transoral; with biopsy, single or multiple CPT copyright 2021 [employer]. All rights reserved. The codes documented in this report are preliminary and upon self sealing fuel tank builder review may be revised to meet current compliance requirements. Moy Ramos DO 01/04/2024 8:3 (more content not included)... Normal [facility] deOrdered By: Moy Ramos on 01-04-2024 Bedside Glucose ([facility]) 99 mg/dL 74-106 [facility] Comment on above: MANAGEMENT OF PATIEN T CARE PER NURSING PROTOCOL H Pylori (initial)on 024 H Pylori (initial) --- Patient Age/Sex Location Account Attending Physician SANDIE ANGELES 78/F EN [id number] Moy Ramos DO Specimen: [id number] Received: 01/04/24 Status: EDIS Babcock Num: [id number] Spec Type: IMMUNO Subm Dr: Moy Ramos DO PHYSICIAN INSTITUTION [address] [address] SPECIMEN INFORMATION: Tissue Source: B- Gastric body biopsy Clinical Info: Anemia, dysphagia Specimen Number: [id number] CPT code: 10030 METHODOLOGY: Deparaffinized sections of prefer/formalin-fixed tissue or [...] developed and their performance characteristics determined by [facility]. They may not have [...] file) Dr. Matt Zaman, 01/05/[address] [facility] Comment on above: Performed By: #### P H.PYLORI #### [facility] [address] [place], [place], [id number] MR/POSTOP.Lissa 01-04-2024 MR/POSTOP.JESSIE [facility] Medical Records Department [address] [place] [address] Anesthesia Postop Eval I 01/04/24 0832 MR#: [id number] Acct: [id number] Name: SANDIE ANGELES DAWSON Rep #: [id number] : 1945 78 From: Stanislav Altamirano PCP: Dr. Desiree Tapia MD Status:[facility] Y Race: C Location: [place] [address] Anesthesia: Postop Eval I Current Vital Signs [...] Stanislav Chauhan Signature: Date CC: Signed Normal [facility] MR/FDONEPLK8sy 01-04-2024 [facility] Medical Records Department [address] [place] [address] Anesthesia Postop Eval II 01/04/24921 MR#: [id number] Acct: [id number] Name: SANDIE ANGELES DAWSON Rep #: [id number] : 1945 78 From: Marcus Jo MD PCP: Dr. Desiree Tapia MD Status:[facility] Y Race: C Location: EN Anesthesia Postop [...] Marcus Chauhan Signature: Date CC: Signed Normal [facility] Surgery Specimen Level Kelby 01-04-2024 Surgery Specimen Level IV Patient Age/Sex Location Account Attending Physician SANDIE ANGELES 78/F EN [id number] Moy Ramos DO Specimen: [id number] Received: 01/04/24 Status: EDIS Babcock Num: [id number] Spec Type: EGD BIOPSY Subm Dr: Moy Ramos, HEADER OPERATION: EGD with biopsy, hemostasis PRE-OP DIAGNOSIS: Anemia, dysphagia TISSUE SUBMITTED: A- Duodenum biopsy, B- Gastric body biopsy MICROSCOPIC DIAGNOSIS A. Duodenum, biopsy: Minimal non-specific chronic inflammation. B. Gastric body, biopsy: Chronic inflammation. See comment. AM. 01/05/2024 COMMENT B. The results of immunohistochemistry for Helicobacter pylori will be reported separately ([id number]). MICROSCOPIC DESCRIPTION Slides are reviewed. GROSS DESCRIPTION [...] submitted in one cassette. AM. 01/04/2024 TC:3 CPT:84418c3 Patient Age/Sex Location Account Attending Physician SANDIE ANGELES 78/F EN [id number] Moy Ramos DO Signed (signature on file) Dr. Matt Zaman DO 01/05/[address] [facility] Comment on above: Performed By: #### P SUIV ####[facility] [address] [place], [place], [id number] Gastroenterology Visit Repor ton 11-26-2023 Gastroenterology Visit Report [facility] Gastroenterology [address] [place] [address] OFFICE VISIT Date of Service: 11/26/23 MR#: [id number] Acct: [id number] Name: SANDIE ANGELES Rep #: [id number] : 1945 Provider: SUZETTE Carlson Age/Sex: 78/F Location: [facility] Status: Signed Intake Vital Signs 11/18/23 13:52 [...] past year?: No Nurse's Note: OV 11.26.23 [facility] Medical History (Updated 11/18/23 @ 14:49 by Mitali Pandya TRANSCRIPTIONIST, TRANSCRIPTIONIST-C) Dysphagia Pancytopenia Chronic renal failure Iron deficiency [...] in: other frequency: 1-2 times per week luna/spiritism: Jewish seatbelt use: always HPI HPI Chief Complaint: dysphagia, anemia Details: SANDIE ANGELES, is a 78 F who presents to the office today for establishment with [facility]. Pt has a PMHx of chronic renal [...] most recent episode of while eating a yemeni fernandez. She is not too concerned about [...] fever(s), weig (more content not included)... Normal [facility] Absolute lymphocyte countOrd ered By: Dr. Tapia on 05-20-2022 Lymphocytes Auto (Unsp spec) [#/Vol] 0.99 10*3/uL 0.83-4.51 [facility] Basophil percentageOrdered B y: Dr. Tapia on 05-20-2022 Basophils/100 WBC (Bld) 1.0 % 0-1 [facility] Chloride [Moles/Vol] 111 mmol/L 98-107 [facility] Eosinophils/100 WBC (Bld) 3.4 % 0-5 [facility] Glucose [Mass/Vol] 67 mg/dL 74-106 [facility] Neutrophils (Bld) [#/Vol] 4.3 10*3/uL 2.0-7.7 [facility] Neutrophils/100 WBC (Bld) 69.9 % 47-70 [facility] Potassium [Moles/Vol] 4.3 mmol/L 3.5-5.1 [facility] Sodium [Moles/Vol] 141 mmol/L 136-145 [facility] WBC (Bld) [#/Vol] 6.2 10*3/uL 4.4-11.0 [facility] Blood erythrocytes count (nu mber/volume)Ordered By: Dr. Tapai on 05-20-2022 RBC (Bld) [#/Vol] 3.74 10*6/uL 4.2-5.4 [facility] Blood hemoglobin measurement (mass/volume)Ordered By: Dr. Tapia on 05-20-2022 Hemoglobin (Bld) [Mass/Vol] 11.5 g/dL 12.0-15.0 [facility] Blood lymphocytes/100 leukoc ytesOrdered By: Dr. Tapia on 05-20-2022 Lymphocytes/100 WBC (Bld) 16.0 % 19-41 [facility] Blood monocytes/100 leukocyt esOrdered By: Dr. Tapia on 05-20-2022 Monocytes/100 WBC (Bld) 9.2 % 0-10 [facility] Blood platelet mean volumeOr dered By: Dr. Tapia on 05-20-2022 Platelet mean volume (Bld) [Entitic vol] 11.7 fL 6.2-12.0 [facility] Determination of erythrocyte mean corpuscular volume (MCV)Ordered By: Dr. Tapia on 05-20-2022 MCV (RBC) [Entitic vol] 97.1 fL 81-99 [facility] Hematocrit Auto (Bld) [Volum e fraction]Ordered By: Dr. Tapia on 05-20-2022 Hematocrit (Bld) [Volume fraction] 36.3 % 37-47 [facility] Laboratory - Chemistry and C hemistry - challengeOrdered By: Dr. Tapia on 05-20-2022 CO2 [Moles/Vol] 20.0 mmol/L 21.0-32.0 [facility] Cobalamin (Vitamin B12) [Mass/Vol] 442 pg/mL 211-911 [facility] Urea nitrogen/Creatinine [Mass ratio] 21.3 mg/mg 10-20 [facility] - Hematology and Cell countsOrdered By: Dr. Tapia on 05-20-2022 Erythrocyte distribution width (RBC) [Entitic vol] 49.1 fL 35.1-43.9 [facility] Erythrocyte distribution width (RBC) [Ratio] 13.8 % 11.6-14.6 [facility] Immature granulocytes/100 WBC (Bld) 0.500 % 0.0-0.9 [facility] Comment on above: IG% - Immature Granu locytes (promyelocytes, myelocytes and metamyelocytes) > 1% indicates that a LEFT SHIFT is Present. MCH (RBC) [Entitic mass] 30.7 pg 27.0-32.0 [facility] Nucleated RBC/100 WBC (Bld) [Ratio] 0 % 0-5 [facility] Auto (RBC) [Mass/Vol]Or dered By: Dr. Tapia on 05-20-2022 MCHC (RBC) [Mass/Vol] 31.7 g/dL 32-36 [facility] No Panel InformationOrdered By: Dr. Tapia on 05-20-2022 Estimated GFR (MDRD) Amer 55 mL/min >60 [facility] Comment on above: GFR Calc Estimated GFR (MDRD) Non-Af Amer 45 mL/min >60 [facility] Comment on above: Non- GFR Calc Thyroid Stimulating Hormone (TSH) 5.28 uIU/mL 0.358-3.74 [facility] Platelets bldOrdered By: Dr. Tapia on 05-20-2022 Platelets (Bld) [#/Vol] 161 10*3/uL 150-450 [facility] Serum or plasma calcium nick urement (mass/volume)Ordered By: Dr. Tapia on 05-20-2022 Calcium [Mass/Vol] 8.9 mg/dL 8.5-10.1 [facility] Serum or plasma creatinine m easurement (mass/volume)Ordered By: Dr. Tapia on 05-20-2022 Creatinine [Mass/Vol] 1.22 mg/dL 0.55-1.02 [facility] Comment on above: The validity of the calculated GFR & GFRAA in patients over 70 years has not been determined. Clinical correlation is essential. Serum or plasma urea nitroge n measurement (mass/volume)Ordered By: Dr. Tapia on 05-20-2022 Urea nitrogen [Mass/Vol] 26 mg/dL 7-18 [facility] Thin prep Papanicolaou smear with manual screeningOrdered By: Dr. Tapia on 05-20-2022 Thin prep Papanicolaou smear with manual screening 10 5-15 [facility] Whole blood hemoglobin A1c/t otal hemoglobin ratio (mass fraction)Ordered By: Dr. Tapia on 05-20-2022 HbA1c (Bld) [Mass fraction] 6.4 % 3.8-5.6 [facility] Comment on above: Normal < 5.7 % Predi abetic 5.7 - 6.4 % Diabetic >or= 6.5 % Please note range changes. Basophil percentageOrdered B y: Dr. Hidalgo on 02-25-2022 Bilirubin [Mass/Vol] 0.60 mg/dL 0.20-1.00 [facility] Comment on above: For patients on eltr ombopag therapy, use of Dimension [place] TBIL is not recommended. Chloride [Moles/Vol] 113 mmol/L 98-107 [facility] Glucose [Mass/Vol] 59 mg/dL 74-106 [facility] Potassium [Moles/Vol] 4.1 mmol/L 3.5-5.1 [facility] Protein [Mass/Vol] 7.4 g/dL 6.4-8.2 [facility] Sodium [Moles/Vol] 143 mmol/L 136-145 [facility] WBC (Bld) [#/Vol] 3.9 10*3/uL 4.4-11.0 [facility] Blood erythrocytes count (nu mber/volume)Ordered By: Dr. Hidalgo on 02-25-2022 RBC (Bld) [#/Vol] 3.81 10*6/uL 4.2-5.4 [facility] Blood hemoglobin measurement (mass/volume)Ordered By: Dr. Hidalgo on 02-25-2022 Hemoglobin (Bld) [Mass/Vol] 11.6 g/dL 12.0-15.0 [facility] Blood platelet mean volumeOr dered By: Dr. Hidalgo on 02-25-2022 Platelet mean volume (Bld) [Entitic vol] 11.5 fL 6.2-12.0 [facility] Determination of erythrocyte mean corpuscular volume (MCV)Ordered By: Dr. Hidalgo on 02-25-2022 MCV (RBC) [Entitic vol] 94.5 fL 81-99 [facility] Hematocrit Auto (Bld) [Volum e fraction]Ordered By: Dr. Hidalgo on 02-25-2022 Hematocrit (Bld) [Volume fraction] 36.0 % 37-47 [facility] - Chemistry and C hemistry - challengeOrdered By: Dr. Hidalgo on 02-25-2022 ALP [Catalytic activity/Vol] 120 U/L 45-117 [facility] ALT [Catalytic activity/Vol] 37 U/L 13-56 [facility] CO2 [Moles/Vol] 24.0 mmol/L 21.0-32.0 [facility] Cobalamin (Vitamin B12) [Mass/Vol] 428 pg/mL 211-911 [facility] Globulin (S) [Mass/Vol] 4.1 g/dL 2.2-4.2 [facility] Urea nitrogen/Creatinine [Mass ratio] 15.9 mg/mg 10-20 [facility] - Hematology and Cell countsOrdered By: Dr. Hidalgo on 02-25-2022 Erythrocyte distribution width (RBC) [Entitic vol] 45.1 fL 35.1-43.9 [facility] Erythrocyte distribution width (RBC) [Ratio] 13.1 % 11.6-14.6 [facility] MCH (RBC) [Entitic mass] 30.4 pg 27.0-32.0 [facility] MCHC Auto (RBC) [Mass/Vol]Or dered By: Dr. Hidalgo on 02-25-2022 MCHC (RBC) [Mass/Vol] 32.2 g/dL 32-36 [facility] No Panel InformationOrdered By: Dr. Hidalgo on 02-25-2022 Estimated GFR (MDRD) Amer 64 mL/min >60 [facility] Comment on above: GFR Calc Estimated GFR (MDRD) Non-Af Amer 53 mL/min >60 [facility] Comment on above: Non- GFR Calc Free Lambda Light Chains, Quant 40.0 mg/L 5.7-26.3 [facility] Thyroid Stimulating Hormone (TSH) 3.78 uIU/mL 0.358-3.74 [facility] Whole Blood Vitamin B1 Level 93.0 nmol/L 66.5-200.0 [facility] Comment on above: Performed at: [address] [id number] Director: Grant Baires PhD, Phone: [phone] at: [facility] [id number] Director: Kota Wallace MD, Phone: [phone] Platelets bldOrdered By: Dr. Hidalgo on 02-25-2022 Platelets (Bld) [#/Vol] 131 10*3/uL 150-450 [facility] Serum immunoglobulin kappa l ight chains/immunoglobulin lambda light chains mass ratioOrdered By: Dr. Hidalgo on 02-25-2022 Immunoglobulin light chains.kappa/Immunoglob ulin light chains.lambda (S) [Mass ratio] 1.75 0.26-1.65 [facility] Serum or plasma albumin nick urement (mass/volume)Ordered By: Dr. Hidalgo on 02-25-2022 Albumin [Mass/Vol] 3.3 g/dL 3.2-5.0 [facility] Serum or plasma albumin/glob ulin mass ratioOrdered By: Dr. Hidalgo on 02-25-2022 Albumin/Globulin [Mass ratio] 0.8 {ratio} 0.9-2.4 [facility] Serum or plasma calcium nick urement (mass/volume)Ordered By: Dr. Hidalgo on 02-25-2022 Calcium [Mass/Vol] 8.8 mg/dL 8.5-10.1 [facility] Serum or plasma creatinine m easurement (mass/volume)Ordered By: Dr. Hidalgo on 02-25-2022 Creatinine [Mass/Vol] 1.07 mg/dL 0.55-1.02 [facility] Comment on above: The validity of the calculated GFR & GFRAA in patients over 70 years has not been determined. Clinical correlation is essential. Serum or plasma folate measu rement (mass/volume)Ordered By: Dr. Hidalgo on 02-25-2022 Folate [Mass/Vol] 13.50 ng/mL 3.1-55.4 [facility] Serum or plasma immunoglobul in kappa light chains measurement (mass/volume)Ordered By: Dr. Hidalgo on 02-25-2022 Immunoglobulin light chains.kappa [Mass/Vol] 69.8 mg/L 3.3-19.4 [facility] Serum or plasma urea nitroge n measurement (mass/volume)Ordered By: Dr. Hidalgo on 02-25-2022 Urea nitrogen [Mass/Vol] 17 mg/dL 7-18 [facility] Thin prep Papanicolaou smear with manual screeningOrdered By: Dr. Hidalgo on 02-25-2022 Thin prep Papanicolaou smear with manual screening 35 U/L 15-37 [facility] Thin prep Papanicolaou smear with manual screening 6 5-15 [facility] Basophil percentageOrdered B y: Dr. Arceo on 01-30-2022 Bilirubin [Mass/Vol] 0.50 mg/dL 0.20-1.00 [facility] Comment on above: For patients on eltr ombopag therapy, use of Dimension [place] TBIL is not recommended. Chloride [Moles/Vol] 110 mmol/L 98-107 [facility] Glucose [Mass/Vol] 125 mg/dL 74-106 [facility] Comment on above: Fasting Glucose resu lt from 100 to 125 mg/dL suggests IMPAIRED HOMEOSTASIS per A.D.A. criteria. Potassium [Moles/Vol] 4.4 mmol/L 3.5-5.1 [facility] Protein [Mass/Vol] 8.1 g/dL 6.4-8.2 [facility] Sodium [Moles/Vol] 141 mmol/L 136-145 [facility] Erythrocyte sedimentation ra teOrdered By: Dr. Arceo on 01-30-2022 ESR (Bld) [Velocity] 31 mm/h 0-30 [facility] Laboratory - Chemistry and C hemistry - challengeOrdered By: Dr. Arceo on 01-30-2022 ALP [Catalytic activity/Vol] 116 U/L 45-117 [facility] ALT [Catalytic activity/Vol] 43 U/L 13-56 [facility] CO2 [Moles/Vol] 25.0 mmol/L 21.0-32.0 [facility] Globulin (S) [Mass/Vol] 4.7 g/dL 2.2-4.2 [facility] Urea nitrogen/Creatinine [Mass ratio] 15.9 mg/mg 10-20 [facility] No Panel InformationOrdered By: Dr. Arceo on 01-30-2022 Estimated GFR (MDRD) Amer 64 mL/min >60 [facility] Comment on above: GFR Calc Estimated GFR (MDRD) Non-Af Amer 53 mL/min >60 [facility] Comment on above: Non- GFR Calc Serum or plasma C reactive p rotein measurement (mass/volume)Ordered By: Dr. Arceo on 01-30-2022 CRP [Mass/Vol] mg/L 0.0-3.0 [facility] Comment on above: C-Reactive Protein ( CRP) provides useful information for thediagnosis, therapy and monitoring of inflammatory processesand associated diseases. For the evaluation of Relative Riskfor Cardiovascular Disease, a High Sensitivity CRP (HSCRP)should be ordered. Serum or plasma albumin nick urement (mass/volume)Ordered By: Dr. Arceo on 01-30-2022 Albumin [Mass/Vol] 3.4 g/dL 3.2-5.0 [facility] Serum or plasma albumin/glob ulin mass ratioOrdered By: Dr. Arceo on 01-30-2022 Albumin/Globulin [Mass ratio] 0.7 {ratio} 0.9-2.4 [facility] Serum or plasma calcium nick urement (mass/volume)Ordered By: Dr. Arceo on 01-30-2022 Calcium [Mass/Vol] 9.0 mg/dL 8.5-10.1 [facility] Serum or plasma creatinine m easurement (mass/volume)Ordered By: Dr. Arceo on 01-30-2022 Creatinine [Mass/Vol] 1.07 mg/dL 0.55-1.02 [facility] Comment on above: The validity of the calculated GFR & GFRAA in patients over 70 years has not been determined. Clinical correlation is essential. Serum or plasma urea nitroge n measurement (mass/volume)Ordered By: Dr. Arceo on 01-30-2022 Urea nitrogen [Mass/Vol] 17 mg/dL 7-18 [facility] Serum or plasma uric acid me asurement (mass/volume)Ordered By: Dr. Arceo on 01-30-2022 Urate [Mass/Vol] 5.9 mg/dL 2.6-6.0 [facility] Comment on above: The drugs N-Acetylcy steine and Metamizole may falsely depress this assay. Thin prep Papanicolaou smear with manual screeningOrdered By: Dr. Arceo on 01-30-2022 Thin prep Papanicolaou smear with manual screening 41 U/L 15-37 [facility] Thin prep Papanicolaou smear with manual screening 6 5-15 [facility] Basophil percentageon 2021 Cholesterol [Mass/Vol] 157 mg/dL <200 [facility] Work Phone: Comment on above: <200 mg/dL Desirable 200-240 mg/dL Borderline >240 mg/dL High Risk Triglyceride [Mass/Vol] 135 mg/dL <199 [facility] Work Phone: Comment on above: The drugs N-Acetylcy steine and Metamizole may falsely depress this assay.Serum Triglycerides Reference Interval Normal <150 mg/dL Borderline high 150 - 199 mg/dL High 200 - 499 mg/dL Very High > or = 500 mg/dL Glucose Glucometer (BldC) [M ass/Vol]on 09-10-2021 Glucose [Mass/Vol] 292 mg/dL 74-106 [facility] Work Phone: Comment on above: MANAGEMENT OF PATIEN T CARE PER NURSING PROTOCOL Serum or plasma cholesterol in HDL measurement (mass/volume)on 09-10-2021 Cholesterol in HDL [Mass/Vol] 33 mg/dL >40 [facility] Work Phone: Comment on above: The drugs N-Acetylcy steine and Metamizole may falsely depress this assay. Reference Range HDL <40 mg/dL Low HDL Cholesterol HDL >or= 60 mg/dL High HDL Cholesterol Serum or plasma cholesterol in VLDL measurement (mass/volume)on 09-10-2021 Cholesterol in VLDL [Mass/Vol] 27 mg/dL 5-40 [facility] Work Phone: Serum or plasma low density lipoprotein (LDL) cholesterol measurement (mass/volume)on 09-10-2021 Cholesterol in LDL [Mass/Vol] 97 mg/dL 0-130 [facility] Work Phone: [phone] Absolute lymphocyte counton 09-09-2021 Lymphocytes Auto (Unsp spec) [#/Vol] 0.74 10*3/uL 0.83-4.51 [facility] Work Phone: [phone] Basophil percentageon 2021 Basophils/100 WBC (Bld) 1.0 % 0-1 [facility] Work Phone: Bilirubin [Mass/Vol] 0.90 mg/dL 0.20-1.00 [facility] Work Phone: Comment on above: For patients on eltr ombopag therapy, use of Dimension [place] TBIL is not recommended. Chloride [Moles/Vol] 106 mmol/L 98-107 [facility] Work Phone: Eosinophils/100 WBC (Bld) 1.5 % 0-5 [facility] Work Phone: Glucose [Mass/Vol] 254 mg/dL 74-106 [facility] Work Phone: Comment on above: Glucose result great er than or equal to 200 mg/dLsuggests DIABETES MELLITUS per A.D.A. criteria. Neutrophils (Bld) [#/Vol] 2.9 10*3/uL 2.0-7.7 [facility] Work Phone: Neutrophils/100 WBC (Bld) 71.7 % 47-70 [facility] Work Phone: Potassium [Moles/Vol] 3.9 mmol/L 3.5-5.1 [facility] Work Phone: Protein [Mass/Vol] 7.9 g/dL 6.4-8.2 [facility] Work Phone: Sodium [Moles/Vol] 139 mmol/L 136-145 [facility] Work Phone: WBC (Bld) [#/Vol] 4.0 10*3/uL 4.4-11.0 [facility] Work Phone: Blood erythrocytes count (nu mber/volume)on 09-09-2021 RBC (Bld) [#/Vol] 4.41 10*6/uL 4.2-5.4 [facility] Work Phone: Blood hemoglobin measurement (mass/volume)on 09-09-2021 Hemoglobin (Bld) [Mass/Vol] 14.2 g/dL 12.0-15.0 [facility] Work Phone: Blood lymphocytes/100 leukoc yteson 09-09-2021 Lymphocytes/100 WBC (Bld) 18.5 % 19-41 [facility] Work Phone: Blood monocytes/100 leukocyt eson 09-09-2021 Monocytes/100 WBC (Bld) 6.5 % 0-10 [facility] Work Phone: Blood platelet mean volumeon 09-09-2021 Platelet mean volume (Bld) [Entitic vol] 11.1 fL 6.2-12.0 [facility] Work Phone: Determination of erythrocyte mean corpuscular volume (MCV)on 09-09-2021 MCV (RBC) [Entitic vol] 93.0 fL 81-99 [facility] Work Phone: Hematocrit Auto (Bld) [Volum e fraction]on 09-09-2021 Hematocrit (Bld) [Volume fraction] 41.0 % 37-47 [facility] Work Phone: INR in Blood by Coagulation assayon 09-09-2021 INR Coag (Bld) [Relative time] 1.2 {INR} [facility] Work Phone: Laboratory - Chemistry and C hemistry - challengeon 09-09-2021 ALP [Catalytic activity/Vol] 100 U/L 45-117 [facility] Work Phone: ALT [Catalytic activity/Vol] 40 U/L 13-56 [facility] Work Phone: CO2 [Moles/Vol] 24.0 mmol/L 21.0-32.0 [facility] Work Phone: Globulin (S) [Mass/Vol] 4.6 g/dL 2.2-4.2 [facility] Work Phone: Urea nitrogen/Creatinine [Mass ratio] 14.6 mg/mg 10-20 [facility] Work Phone: Laboratory - Coagulationon 0 09-09-2021 PT Coag (PPP) [Time] 14.7 s 11.7-14.9 [facility] Work Phone: [phone] Laboratory - Hematology and Cell countson 09-09-2021 Erythrocyte distribution width (RBC) [Entitic vol] 44.1 fL 35.1-43.9 [facility] Work Phone: [phone] Erythrocyte distribution width (RBC) [Ratio] 13.0 % 11.6-14.6 [facility] Work Phone: [phone] Immature granulocytes/100 WBC (Bld) 0.800 % 0.0-0.9 [facility] Work Phone: [phone] Comment on above: IG% - Immature Granu locytes (promyelocytes, myelocytes and metamyelocytes) > 1% indicates that a LEFT SHIFT is Present. MCH (RBC) [Entitic mass] 32.2 pg 27.0-32.0 [facility] Work Phone: [phone] Nucleated RBC/100 WBC (Bld) [Ratio] 0 % 0-5 [facility] Work Phone: [phone] MCHC Auto (RBC) [Mass/Vol]on 09-09-2021 MCHC (RBC) [Mass/Vol] 34.6 g/dL 32-36 [facility] Work Phone: [phone] No Panel Informationon 09-09 Troponin I High Sensitivity 8 pg/mL 3.0-54.0 [facility] Work Phone: [phone] Comment on above: Please Note: New Kelsi t Units and Gender Specific Reference Ranges. For more information see Policy Stat Procedure [place] High Sensitivity Troponin (TNIH) and attachments. Estimated Creatinine Clearance Calc 36.44 ml/min [facility] Work Phone: [phone] Estimated GFR (MDRD) Amer 72 mL/min >60 [facility] Work Phone: [phone] Comment on above: GFR Calc Estimated GFR (MDRD) Non-Af Amer 60 mL/min >60 [facility] Work Phone: [phone] Comment on above: Non- GFR Calc Troponin I High Sensitivity 7 pg/mL 3.0-54.0 [facility] Work Phone: [phone] Comment on above: Please Note: New Kelsi t Units and Gender Specific Reference Ranges. For more information see Policy Stat Procedure [place] High Sensitivity Troponin (TNIH) and attachments. Platelets bldon 09-09-2021 Platelets (Bld) [#/Vol] 128 10*3/uL 150-450 [facility] Work Phone: Serum or plasma albumin nick urement (mass/volume)on 09-09-2021 Albumin [Mass/Vol] 3.3 g/dL 3.2-5.0 [facility] Work Phone: [phone] Serum or plasma albumin/glob ulin mass ratioon 09-09-2021 Albumin/Globulin [Mass ratio] 0.7 {ratio} 0.9-2.4 [facility] Work Phone: [phone] Serum or plasma calcium nick urement (mass/volume)on 09-09-2021 Calcium [Mass/Vol] 9.0 mg/dL 8.5-10.1 [facility] Work Phone: [phone] Serum or plasma creatinine m easurement (mass/volume)on 09-09-2021 Creatinine [Mass/Vol] 0.96 mg/dL 0.55-1.02 [facility] Work Phone: Comment on above: The validity of the calculated GFR & GFRAA in patients over 70 years has not been determined. Clinical correlation is essential. Serum or plasma urea nitroge n measurement (mass/volume)on 09-09-2021 Urea nitrogen [Mass/Vol] 14 mg/dL 7-18 [facility] Work Phone: [phone] Thin prep Papanicolaou smear with manual screeningon 09-09-2021 Thin prep Papanicolaou smear with manual screening 37 U/L 15-37 [facility] Work Phone: [phone] Thin prep Papanicolaou smear with manual screening 9 5-15 [facility] Work Phone: [phone] Whole blood hemoglobin A1c/t otal hemoglobin ratio (mass fraction)on 09-09-2021 HbA1c (Bld) [Mass fraction] 7.9 % 3.8-5.6 [facility] Work Phone: Comment on above: Normal < 5.7 % Predi abetic 5.7 - 6.4 % Diabetic >or= 6.5 % Please note range changes. Vital Signs Date Time Vital Sign Value Performing Clinician Faci lity 10-25-2024 14:12-0400 Body temperature 97.6 [degF] Dr. Desiree Tapia MD Work Phone: [facility] 10-25-2024 14:12-0400 Diastolic blood pressure 47 mm[Hg] Dr. Desiree Tapia MD Work Phone: [facility] 10-25-2024 14:12-0400 Heart rate 72 /min Dr. Desiree Tapia MD Work Phone: [facility] 10-25-2024 14:12-0400 Respiratory rate 16 /min Dr. Desiree Tapia MD Work Phone: [facility] 10-25-2024 14:12-0400 SaO2% (BldA) [Mass fraction] 94 % Dr. Desiree Tapia MD Work Phone: [facility] 10-25-2024 14:12-0400 Systolic blood pressure 136 mm[Hg] Dr. Desiree Tapia MD Work Phone: [facility] 10-25-2024 12:27-0400 Body height 154.[address] Desiree Tapia MD Work Phone: [facility] 10-25-2024 12:27-0400 Body mass index (BMI) [Ratio] 28.4 kg/m2 Dr. Desiree Tapia MD Work Phone: [facility] 10-25-2024 12:27-0400 Body weight 68.[address] Desiree Tapia MD Work Phone: [facility] 10-21-2024 08:51-0400 Diastolic blood pressure 76 mm[Hg] Dr. Desiree Tapia MD Work Phone: [phone])133-240387 [place] [address] 10-21-2024 08:51-0400 Heart rate 82 /min Dr. Desiree Tapia MD Work Phone: [facility] 10-21-2024 08:51-0400 Systolic blood pressure 151 mm[Hg] Dr. Desiree Tapia MD Work Phone: [facility] 06-28-2024 17:29-0400 Diastolic blood pressure 60 mm[Hg] Dr. Desiree Tapia MD Work Phone: [facility] 06-28-2024 17:29-0400 Systolic blood pressure 154 mm[Hg] Dr. Desiree Tapia MD Work Phone: [facility] 06-28-2024 14:04-0400 Body height 154.[address] Desiree Tapia MD Work Phone: [facility] 06-28-2024 14:04-0400 Body mass index (BMI) [Ratio] 27.5 kg/m2 Dr. Desiree Tapia MD Work Phone: [facility] 06-28-2024 14:04-0400 Body temperature 97.9 [degF] Dr. Desiree Tapia MD Work Phone: [facility] 06-28-2024 14:04-0400 Body weight 65.[address] Desiree Tapia MD Work Phone: [facility] 06-28-2024 14:04-0400 Diastolic blood pressure 70 mm[Hg] Dr. Desiree Tapia MD Work Phone: [facility] 06-28-2024 14:04-0400 Heart rate 79 /min Dr. Desiree Tapia MD Work Phone: [facility] 06-28-2024 14:04-0400 Respiratory rate 16 /min Dr. Desiree Tapia MD Work Phone: [facility] 06-28-2024 14:04-0400 SaO2% (BldA) [Mass fraction] 96 % Dr. Desiree Tapia MD Work Phone: [facility] 06-28-2024 14:04-0400 Systolic blood pressure 172 mm[Hg] Dr. Desiree Tapia MD Work Phone: [facility] 06-28-2024 13:05-0400 Body height 154.[address] Desiree Tapia MD Work Phone: [phone] [place] [address] 06-28-2024 13:05-0400 Body mass index (BMI) [Ratio] 27.3 kg/m2 Dr. Desiree Tapia MD Work Phone: [phone] [place] [address] 06-28-2024 13:05-0400 Body temperature 98.6 [degF] Dr. Desiree Tapia MD Work Phone: [phone])529-727914 [place] [address] 06-28-2024 13:05-0400 Body weight 65.[address] Desiree Tapia MD Work Phone: [facility] 06-28-2024 13:05-0400 Diastolic blood pressure 62 mm[Hg] Dr. Desiree Tapia MD Work Phone: [facility] 06-28-2024 13:05-0400 Heart rate 83 /min Dr. Desiree Tapia MD Work Phone: [facility] 06-28-2024 13:05-0400 Respiratory rate 16 /min Dr. Desiree Tapia MD Work Phone: [facility] 06-28-2024 13:05-0400 SaO2% (BldA) [Mass fraction] 96 % Dr. Desiree Tpaia MD Work Phone: [facility] 06-28-2024 13:05-0400 Systolic blood pressure 175 mm[Hg] Dr. Desiree Tapia MD Work Phone: 4(765)570-218714 [place] [address] 04-19-2024 13:18-0400 Body temperature 98 [degF] Dr. Desiree Tapia MD Work Phone: 2(563)221-343687 [place] [address] 04-19-2024 13:18-0400 Body weight 66.[address] Desiree Tapia MD Work Phone: 8([phone])400-408587 [place] [address] 04-19-2024 13:18-0400 Diastolic blood pressure 62 mm[Hg] Dr. Desiree Tapia MD Work Phone: 3(994)607-832614 [place] [address] 04-19-2024 13:18-0400 Heart rate 78 /min Dr. Desiree Tapia MD Work Phone: [phone])262-648614 [place] [address] 04-19-2024 13:18-0400 Respiratory rate 16 /min Dr. Desiree Tapia MD Work Phone: [phone])478-365214 [place] [address] 04-19-2024 13:18-0400 SaO2% (BldA) [Mass fraction] 97 % Dr. Desiree Tapia MD Work Phone: [phone])[phone] [place] [address] 04-19-2024 13:18-0400 Systolic blood pressure 153 mm[Hg] Dr. Desiree Tapia MD Work Phone: 6(297)635-453814 [place] [address] 03-22-2024 12:52-0500 Body height 154.[address] Desiree Tapia MD Work Phone: 4(254)224-714114 [place] [address] 03-22-2024 12:52-0500 Body mass index (BMI) [Ratio] 27 kg/m2 Dr. Desiree Tapia MD Work Phone: 1(500)802-815014 [place] [address] 03-22-2024 12:52-0500 Body temperature 98.4 [degF] Dr. Desiree Tapia MD Work Phone: 4(393)444-634714 [place] [address] 03-22-2024 12:52-0500 Body weight 64.[address] Desiree Tapia MD Work Phone: 4(131)812-414914 [place] [address] 03-22-2024 12:52-0500 Diastolic blood pressure 62 mm[Hg] Dr. Desiree Tapia MD Work Phone: [facility] 03-22-2024 12:52-0500 Heart rate 85 /min Dr. Desiree Tapia MD Work Phone: [facility] 03-22-2024 12:52-0500 Respiratory rate 16 /min Dr. Desiree Tapia MD Work Phone: [facility] 03-22-2024 12:52-0500 SaO2% (BldA) [Mass fraction] 96 % Dr. Desiree Tapia MD Work Phone: [facility] 03-22-2024 12:52-0500 Systolic blood pressure 148 mm[Hg] Dr. Desiree Tapia MD Work Phone: [facility] 01-04-2024 08:45-0500 Body temperature 97.1 [degF] Dr. Desiree Tapia MD Work Phone: [facility] 01-04-2024 08:45-0500 Diastolic blood pressure 78 mm[Hg] Dr. Desiree Tapia MD Work Phone: [facility] 01-04-2024 08:45-0500 Heart rate 70 /min Dr. Desiree Tapia MD Work Phone: [facility] 01-04-2024 08:45-0500 Respiratory rate 18 /min Dr. Desiree Tapia MD Work Phone: [facility] 01-04-2024 08:45-0500 SaO2% (BldA) [Mass fraction] 96 % Dr. Desiree Tapia MD Work Phone: [facility] 01-04-2024 08:45-0500 Systolic blood pressure 117 mm[Hg] Dr. Desiree Tapia MD Work Phone: [facility] 01-04-2024 07:29-0500 Body mass index (BMI) [Ratio] 28.8 kg/m2 Dr. Desiree Tapia MD Work Phone: [facility] 01-04-2024 07:29-0500 Body weight 69.[address] Desiree Tapia MD Work Phone: [facility] 10-30-2022 10:58-0400 Body height 154.[address] Desiree Tapia Work Phone: [facility] 10-30-2022 10:58-0400 Body mass index (BMI) [Ratio] 28.5 kg/m2 Dr. Desiree Tapia Work Phone: [facility] 10-30-2022 10:58-0400 Body temperature 98.6 [degF] Dr. Desiree Tapia Work Phone: [facility] 10-30-2022 10:58-0400 Body weight 68.[address] Desiree Tapia Work Phone: [facility] 10-30-2022 10:58-0400 Diastolic blood pressure 52 mm[Hg] Dr. Desiree Tapia Work Phone: [facility] 10-30-2022 10:58-0400 Heart rate 81 /min Dr. Desiree Tapia Work Phone: [facility] 10-30-2022 10:58-0400 Respiratory rate 17 /min Dr. Desiree Tapia Work Phone: [facility] 10-30-2022 10:58-0400 SaO2% (BldA) [Mass fraction] 94 % Dr. Desiree Tapia Work Phone: [facility] 10-30-2022 10:58-0400 Systolic blood pressure 126 mm[Hg] Dr. Desiree Tapia Work Phone: [facility] 2022 10:07-0400 Body weight 68.[address] Desiree Tapia Work Phone: [facility] 2022 10:07-0400 Diastolic blood pressure 56 mm[Hg] Dr. Desiree Tapia Work Phone: [facility] 2022 10:07-0400 Heart rate 88 /min Dr. Desiree Tapia Work Phone: [facility] 2022 10:07-0400 Respiratory rate 18 /min Dr. Desiree Tapia Work Phone: [facility] 2022 10:07-0400 SaO2% (BldA) [Mass fraction] 99 % Dr. Desiree Tapia Work Phone: [facility] 2022 10:07-0400 Systolic blood pressure 142 mm[Hg] Dr. Desiree Tapia Work Phone: [facility] 02-20-2022 08:55-0500 Body height 154.[address] Desiree Tapia Work Phone: [facility] 02-20-2022 08:55-0500 Body mass index (BMI) [Ratio] 28.8 kg/m2 Dr. Desiree Tapia Work Phone: [facility] 02-20-2022 08:55-0500 Body temperature 98.4 [degF] Dr. Desiree Tapia Work Phone: [facility] 02-20-2022 08:55-0500 Body weight 69.[address] Desiree Tapia Work Phone: [facility] 02-20-2022 08:55-0500 Diastolic blood pressure 60 mm[Hg] Dr. Desiree Tapia Work Phone: [facility] 02-20-2022 08:55-0500 Heart rate 91 /min Dr. Desiree Tapia Work Phone: [facility] 02-20-2022 08:55-0500 Respiratory rate 16 /min Dr. Desiree Tapia Work Phone: [facility] 02-20-2022 08:55-0500 SaO2% (BldA) [Mass fraction] 96 % Dr. Desiree Tapia Work Phone: [facility] 02-20-2022 08:55-0500 Systolic blood pressure 160 mm[Hg] Dr. Desiree Tapia Work Phone: [facility] 09-10-2021 12:35-0400 Body temperature 98.6 [degF] Dr. Desiree Tapia Work Phone: [facility] Work Phone: 09-10-2021 12:35-0400 Diastolic blood pressure 61 mm[Hg] Dr. Desiree Tapia Work Phone: [facility] Work Phone: 09-10-2021 12:35-0400 Heart rate 80 /min Dr. Desiree Tapia Work Phone: [facility] Work Phone: 09-10-2021 12:35-0400 Respiratory rate 18 /min Dr. Desiree Tapia Work Phone: [facility] Work Phone: 09-10-2021 12:35-0400 SaO2% (BldA) [Mass fraction] 98 % Dr. Desiree Tapia Work Phone: [facility] Work Phone: 09-10-2021 12:35-0400 Systolic blood pressure 151 mm[Hg] Dr. Desiree Tapia Work Phone: [facility] Work Phone: 09-09-2021 16:02-0400 Body mass index (BMI) [Ratio] 27.8 kg/m2 Dr. Desiree Tapia Work Phone: [facility] Work Phone: 09-09-2021 15:09-0400 Body height 154.[address] Desiree Tapia Work Phone: [facility] Work Phone: 09-09-2021 15:09-0400 Body weight 66.[address] Desiree Tapia Work Phone: [facility] Work Phone: 09-09-2021 13:43-0400 Body temperature 97.8 [degF] [facility] Work Phone: 09-09-2021 13:43-0400 Diastolic blood pressure 48 mm[Hg] [facility] Work Phone: 09-09-2021 13:43-0400 Heart rate 89 /min [facility] Work Phone: 09-09-2021 13:43-0400 Respiratory rate 20 /min [facility] Work Phone: 09-09-2021 13:43-0400 SaO2% (BldA) [Mass fraction] 96 % [facility] Work Phone: 09-09-2021 13:43-0400 Systolic blood pressure 156 mm[Hg] [facility] Work Phone: 09-09-2021 11:41-0400 Body height 157 cm [facility] Work Phone: 09-09-2021 11:41-0400 Body mass index (BMI) [Ratio] 27.2 kg/m2 [facility] Work Phone: 09-09-2021 11:41-0400 Body weight 67.13 kg [facility] Work Phone: Encounters Encounter Date Encounter Type Care Provider Facility Start: 11-25-2024 ambulatory Moy Ramos Facility :[facility] Start: 11-22-2024 ambulatory Arya Argueta Facility:[facility] Start: 11-03-2024 End: 11-03-2024 Patient encounter procedure Moygin Ramos [facility] Work Phone: Start: 11-03-2024 End: 11-03-[address] Desiree Tapia MD Work Phone: [facility] Start: 10-25-2024 Non-patient / Non-visit Moygin Ramos [facility] Start: 10-25-2024 End: 10-25-2024 Admission to same day surgery center Moy [facility] -Endoscopy Work Phone: Start: 10-25-2024 End: 10-25-[address] Desiree Tapia MD Work Phone: -Endoscopy Start: 10-21-2024 End: 10-21-2024 Patient encounter procedure Lesly BRADFORD -[facility] Work Phone: Start: 10-21-2024 End: 10-21-[address] Desiree Tapia MD Work Phone: [facility] Start: 10-21-2024 End: 10-21-2024 ambulatory Desiree Tapia Facility:[facility] Start: 10-04-2024 End: 10-04-[address] Desiree Tapia MD Work Phone: -Laboratory Allyson Oneil [facility] Start: 10-04-2024 End: 10-04-[address] Desiree Tapia MD -Laboratory Allyson Oneil [facility] Start: 10-04-2024 End: 10-04-2024 ambulatory Desiree Tapia Facility:[facility] Start: 08-29-2024 End: 08-29-[address] Desiree Tapia MD Work Phone: -Radiology [facility] Start: 08-29-2024 End: 08-29-[address] Surendra Hidalgo MD -Radiology [facility] Work Phone: Start: 08-29-2024 End: 08-29-2024 ambulatory Desriee Tapia Facility:[facility] Start: 06-28-2024 End: 06-28-[address] Desiree Tapia MD Work Phone: [facility] Work Phone: Start: 06-28-2024 End: 06-28-2024 Patient encounter procedure Miguel BRADFORD -[facility] Work Phone: Start: 06-28-2024 End: 06-28-[address] Surendra Hidalgo MD -[facility] Work Phone: Start: 06-28-2024 End: 06-28-[address] Desiree Tapia MD Work Phone: [facility] Work Phone: Start: 04-19-2024 End: 04-19-2024 Patient encounter procedure Haley BRADFORD -[facility] Work Phone: Start: 04-19-2024 End: 04-19-2024 ambulatory Desiree Tapia Facility:[facility] Start: 04-19-2024 Non-patient / Non-visit Dr. Arya Argueta MD -[facility] Start: 04-19-2024 End: 04-19-[address] Desiree Tapia MD Work Phone: [facility] Work Phone: Start: 04-19-2024 End: 04-19-2024 Patient encounter procedure Haley BRADFORD -Cardiovascular Services Work Phone: Start: 04-19-2024 End: 04-19-2024 ambulatory Desiree Tapia Facility:[facility] Start: 04-01-2024 End: 04-01-[address] Desiree Tapia MD Work Phone: [facility] Work Phone: Start: 04-01-2024 End: 04-01-[address] Desiree Tapia MD -Laboratory, [facility] Start: 04-01-2024 End: 04-01-2024 [facility] Start: 03-22-2024 End: 03-22-[address] Surendra Hidalgo MD -[facility] Work Phone: Start: 03-22-2024 End: 03-22-2024 ambulatory [facility] Facility:[facility] Start: 01-11-2024 End: 01-11-[address] Desiree Tapia MD -Laboratory, Specimen Work Phone: Start: 01-11-2024 End: 01-11-2024 ambulatory [facility] Facility:[facility] Start: 01-04-2024 Non-patient / Non-visit Moy Ramos DO -[facility] Start: 01-04-2024 End: 01-04-2024 Admission to same day surgery center Moy Ramos DO -Endoscopy Work Phone: Start: 01-04-2024 End: 01-04-2024 ambulatory [facility] Facility:[facility] Start: 11-26-2023 End: 11-26-2023 ambulatory [facility] Facility:[facility] Start: 02-23-2023 Non-patient / Non-visit Dr. Desiree Tapia Work Phone: [facility] Start: 02-23-2023 End: 02-23-[address] Desiree Tapia Work Phone: [facility] Work Phone: Start: 02-23-2023 End: 02-23-[address] Desiree Tapia Work Phone: [facility]-Cardiovascular Services Work Phone: Start: 11-25-2022 End: 11-25-[address] Desiree Tapia Work Phone: [facility] Work Phone: Start: 11-25-2022 End: 11-25-[address] Desiree Tapia Work Phone: [facility]-Sleep Lab Work Phone: Start: 10-30-2022 End: 10-30-[address] Desiree Tapia Work Phone: [facility] Work Phone: Start: 06-11-2022 End: 06-11-[address] Desiree Tapia Work Phone: [facility] Work Phone: Start: 06-11-2022 End: 06-11-[address] Desiree Tapia Work Phone: [facility] Start: 05-20-2022 End: 05-20-[address] Desiree Tapia Work Phone: [facility]-Laboratory Start: 2022 End: [address] Desiree Tapia Work Phone: [facility] Vascular Surgery Start: 04-30-2022 Non-patient / Non-visit Dr. Desiree Tapia Work Phone: [facility] Start: 04-30-2022 End: 04-30-[address] Desiree Tapia Work Phone: [facility] Work Phone: Start: 04-30-2022 End: 04-30-[address] Desiree Tapia Work Phone: [facility]-Pulmonary Services/Neurology Start: 04-08-2022 End: 04-08-[address] [facility]ire[facility] Tap[facility] Start: 02-25-2022 End: 02-25-[address] Desiree Tapia Work Phone: [facility] Work Phone: Start: 02-25-2022 End: 02-25-[address] Desiree Tapia Work Phone: [facility]-Cardiovascular Services Start: 02-25-2022 Non-patient / Non-visit Dr. Desiree Tapia Work Phone: [facility] Start: 02-20-2022 End: 02-20-[address] Desiree Tapia Work Phone: [facility] Neurology Start: 01-30-2022 End: 01-30-2022 ambulatory [facility] Work Phone: Start: 01-30-2022 End: 01-30-2022 [facility] Start: 09-16-2021 End: 12-10-2021 ambulatory DESIREE TAPIA Facility:[facility] Start: 09-10-2021 Non-patient / Non-visit Dr. Desiree Tapia Work Phone: [facility] Start: 09-09-2021 Non-patient / Non-visit Dr. Desiree Tapia Work Phone: [facility] Start: 09-09-2021 End: 09-10-2021 Evaluation and management of inpatient [facility]-Progressive Care Unit Start: 10-14-2017 End: 10-14-2017 Patient [facility] Procedures Date Procedure Procedure Detail Performing Clinician [...] 2nd prtn w/control bleeding SMALL BOWEL ENDOSCOPY [facility] Start: 10-25-[address] [facility] Start: 01-04-2024 Egd transoral biopsy single/multiple EGD BIOPSY SINGLE/MULTIPLE [facility] Start: 01-04-2024 Egd transoral control bleeding any method EGD CONTROL BLEEDING ANY [facility] Start: 01-04-[address] [facility] Start: 03-20-[address] [facility] Work Phone: Start: 09-10-[address] [facility] Work Phone: Start: 09-10-2021 Cardiac event recording [facility] Work Phone: Start: 09-09-2021 Following clinical pathway protocol [facility] Work Phone: Start: 09-09-2021 Assessment of risk of venous thromboembolism [facility] Work Phone: Start: 09-09-[address] [facility] Work Phone: Start: 09-09-2021 Care regimes management [facility] Work Phone: Start: 09-09-2021 Catheterization of vein [facility] Work Phone: Start: 09-09-2021 Continuous pulse oximetry [facility] Work Phone: Start: 09-09-2021 Elevation of head of bed [facility] Work Phone: Start: 09-09-[address] [facility] Work Phone: Start: 09-09-2021 Implementation of planned interventions [facility] Work Phone: Start: 09-09-2021 Insertion of catheter into peripheral vein [facility] Work Phone: Start: 09-09-2021 Measuring intake and output [place] Work Phone: Start: 09-09-2021 Notification of physician [facility] Work Phone: Start: 09-09-[address] [facility] Work Phone: Start: 09-09-2021 Patient referral to dietitian [facility] Work Phone: Start: 09-09-2021 Providing care according to standard [facility] Work Phone: Start: 09-09-2021 Provision [address] privileges [facility] Work Phone: Start: 09-09-2021 Referral to occupational therapist [facility] Work Phone: Start: 09-09-[address] [facility] Work Phone: Start: 09-09-2021 Speech therapy assessment [facility] Work Phone: Start: 09-09-2021 [facility] Work Phone: Start: 09-09-[address] [facility] Work Phone: Start: 09-09-2021 [facility] Work Phone: Antibody to lupus La protein measurement [facility] Work Phone: Antibody to SS-A measurement [facility] Work Phone: CBC W Auto Different ial panel - Blood [facility] Centromere protein B Ab [Units/volume] in Serum [facility] Work Phone: Chromatin Ab [Units/ volume] in Serum or Plasma [facility] Work Phone: Comprehensive metabo lic 2000 panel - Serum or Plasma [facility] DNA double strand Ab [Units/volume] in Serum [facility] Work Phone: Sarah-1 extractable nuc lear Ab [Units/volume] in Serum [facility] Work Phone: Nuclear Ab [Presence ] in Serum [facility] Work Phone: Patient referral [facility] Work Phone: [id number] extractable n uclear Ab [Units/volume] in Serum by Immunoassay St. [facility] Work Phone: Howell extractable nu clear Ab [Presence] in Serum [facility] Work Phone: US Carotid arteries [facility] US Carotid arteries [facility] Immunizations Immunization Date Immunization Notes Care Provider Fa cility 05-24-2021 Covid (Pfizer) Dr. Desiree owusu Work Phone: [facility] 12-25-2020 Covid (Pfizer) Dr. Desiree owusu Work Phone: [facility] 05-10-2020 Covid (Pfizer) [facility] 04-19-2020 Covid (Pfizer) [facility] Payers Date Payer Category Payer Self-pay [id number] 2021 Private Health Insurance 101 [id number] 1945 Unknown [id number] 2.16.8 [id number] Medicare [id number] Medicare [id number] Unknown [id number] 2.16.8 40.1.981267.3.579.2.462 Unknown [id number] 2.16.8 40.1.363404.3.579.2.462 Unknown [id number] 2.16.8 40.1.683870.3.579.2.462 Unknown [id number] 2.16.8 40.1.091650.3.579.2.462 Unknown [id number] 2.16.8 40.1.783295.3.579.2.462 Unknown [id number] 2.16.8 40.1.206321.3.579.2.462 Unknown [id number] 2.16.8 40.1.305381.3.579.2.462 Unknown [id number] 2.16.8 40.1.442301.3.579.2.462 Unknown [id number] 2.16.8 40.1.430406.3.579.2.462 Unknown [id number] 2.16.8 40.1.341333.3.579.2.462 Unknown [id number] 2.16.8 40.1.707110.3.579.2.462 Unknown [id number] 2.16.8 40.1.062999.3.579.2.462 Unknown [id number] 2.16.8 40.1.206849.3.579.2.462 Unknown [id number] 2.16.8 40.1.262238.3.579.2.462 Unknown [id number] 2.16.8 40.1.690669.3.579.2.462 Unknown [id number] 2.16.8 40.1.027292.3.579.2.462 Unknown [id number] 2.16.8 40.1.241064.3.579.2.462 Unknown [id number] 2.16.8 40.1.845749.3.579.2.462 Unknown [id number] 2.16.8 40.1.061008.3.579.2.462 Unknown [id number] 2.16.8 40.1.255283.3.579.2.462 Unknown [id number] 2.16.8 40.1.578038.3.579.2.462 Social History Date Type Detail Facility Start: 09-09-2021 End: 10-30-2022 Tobacco smoking status KSIS Unknown if ever smoked [facility] Start: 1945 Sex Assigned At Female [facility] Start: 09-10-2021 Non-smoker [facility] Start: 12-31-2023 End: 10-21-2024 Tobacco smoking status NHIS Never smoked tobacco (finding) [facility] Start: 04-14-2024 End: 04-28-2024 Sex Female (finding) [facility] Not [facility] Goals Date Patient Goal Desired Activity /State Functional Status Date Assessment Result Facility 09-10-2021 Functional status Ambulates [facility] Work Phone: Mental Status Date Assessment Result Facility 10-25-2024 Cognitive function Voice/Name [facility] Work Phone: 01-04-2024 Cognitive function Voice/Name;Touch/Shaki ng [facility] Work Phone: 09-10-2021 Cognitive function Voice/Name [facility] Work Phone: 09-09-2021 Cognitive function Voice/Name [facility] Work Phone: Clinical Notes 04-30-2022 to 10-25-2024 Note Date & Type Note Facility 10-25-2024 History and physical note Note Date/Time October 25, 2024 12:49pm [facility] Medical Records Department [address] [place] [address] History & Physical Exam 10/25/24 1247 MR#: [id number] Acct: [id number] Name: SANDIE ANGELES DAWSON Rep #:[id number] : 1945 79 From: Moy Friend DO PCP: Dr. Desiree Tapia MD Status:[facility] Location: [place] [address] HPI - General General Date of Admission: [...] 2 weeks ago. She denies black/tarry stool. [facility] Medical History Thyroid disease Post-menopausal Insulin dependent [...] in: other frequency: 1-2 times per week luna/spiritism: Jewish seatbelt use: always ROS Constitutional Constitutional: Denies [...] pending result may have to refer [facility] ED. She was scheduled for EGD next [...] Desiree Tapia MD; Moy Ramos DO~ Signed [facility] Work Phone: 1(180) 301-837509-16-2025 Consult note Author Margarita Gonzalez [facility] Note Date/Time October 25, 2024 12:44pm [facility] Medical Records Department [address] [place] [address] Pre-Anesthesia Evaluation 10/25/24 1237 MR#: [id number] Acct: [id number] Name: SANDIE ANGELES Rep #:[id number] : 1945 79 From: Margarita mckeon CRNA PCP: Dr. Desiree Tapia MD Status:REG SDC Y Race: C Location: [place] [address] ASA Classification* ASA Classification ASA Classification: 3 [...] Procedure(s): EGD Anesthesia History Anesthesia History - records management manager: Anesthesia History - records management manager Hx Hospitalization No 10/21/24 11:31 Any Problems [...] am of surgery omeprazole PONV PONV - records management manager: PONV - records management manager Female Yes 10/21/24 11:31 HX of Motion [...] 10/25/24 12:27 Respiratory Assessment Respiratory Assessment - records management manager: Respiratory Tract Infection Hx - records management manager Hx Respiratory Tract Infection No 10/21/24 11:31 STOP Sleep Apnea STOP Sleep Apnea - records management manager: STOP Sleep Apnea - records management manager Hx Hypertension Yes: CONTROLLED WITH MED 10/21/24 [...] Tobacco Use History Tobacco Use History - records management manager: Tobacco Use History - records management manager Tobacco Use Non-smoker 09/10/21 10:00 Smoking Status Never smoker 10/21/24 11:31 Hx Tobacco Use No 10/21/24 11:31 Years Smoking Packs Smoked per Day Smoking Cessation Date was within the last 15 years Hx Smoking Cessation Date Hx Smoking Cessation No: patient doesn't smoke 10/21/24 11:31 Counseling Hematologic Medial History Hematologic Hx - records management manager: Hematologic Medical Hx - documentation improvement specialist Hx of Blood Transfusion No 10/21/24 11:31 [...] confused, unrespo /Reproduction History /Reproductive History - records management manager: /Reproductive Hx- records management manager Hx Now No 10/21/24 11:31 Gestational Age [...] in: other frequency: 1-2 times per week luna/spiritism: Jewish seatbelt use: always Review of Systems (Anesthesia) ROS Narrative System reviewed and no additional complaints, except as documented. 10/25/24 1244 <Electronically signed by Margarita davis CRNA> Date _ Margarita Gonzalez CRNA Cosigner Signature: Date CC: ~ Signed [facility] Work Phone: 1(544) 364-439409-16-2025 Consult note [facility] Medical Records Department [address] [place] [address] Anesthesia Postop Eval I 10/25/24 1352 MR#: [id number] Acct: [id number] Name: BRIDGETTESANDIE DAWSON Rep #:[id number] : 1945 79 From: Stanislav Altamirano PCP: Dr. Desiree Tapia MD Status:REG SDC Y Race: C Location: [place] [address] Anesthesia: Postop Eval I Current Vital Signs [...] Stanislav Chauhan Signature: Date CC: ~ Signed [facility]09-16-2025 Procedure note [facility] Medical Records Department [address] [place] [address] EGD Report MR#: [id number] Acct: [id number] Name: SANDIE ANGELES DAWSON Rep #:[id number] : 1945 79 From: Moy Ramos DO [...] present medications. Procedure Code(s): --- Professional --- 66225, Small intestinal endoscopy, enteroscopy beyond second portion of duodenum, not including ileum; with control of bleeding (eg, injection, bipolar cautery, unipolar cautery, laser, heater probe, stapler, plasma courtesy clerk) CPT copyright 2021 [employer]. All rights reserved. The codes documented in this report are preliminary and upon self sealing fuel tank builder review may be revised to meet current compliance requirements. Moy Ramos DO 10/25/2024 1:53:07 PM This report has been signed electronically. Number of Addenda: 0 Note Initiated On: 10/25/2024 1:23 PM 10/25/24 1353 Date _ Moy Ramos DO Cosigner Signature: Date (if indicated) CC: Dr. Desiree Tapia MD; Moy Ramos DO ~ Date Dictated: 10/25/24 1323 Date Transcribed: Chef Passenger Vessel: RF Signed [facility]09-16-2025 Procedure note [facility] Medical Records Department [address] [place] [address] Provation Physician Letter MR#: [id number] Acct: [id number] Name: SANDIE ANGELES DAWSON Rep #:[id number] : 1945 79 From: Moy Ramos DO PCP: Dr. Desiree Tapia MD Status:REG [facility] 10/25/2024 Desiree Tapia [address] [place] [address] Re : Upper GI endoscopy procedure for [...] ~ Date Dictated: 10/25/24 1323 Date Transcribed: Chef Passenger Vessel: RF Signed [facility]09-16-2025 History and physical note [facility] Medical Records Department [address] [place] [address] History & Physical Exam 10/25/24 1247 MR#: [id number] Acct: [id number] Name: SANDIE ANGELES DAWSON Rep #:[id number] : 1945 79 From: Moy Ramos DO PCP: Dr. Desiree Tapia MD Status:REG [facility] Location: [address] HPI - General General Date of [...] 2 weeks ago. She denies black/tarry stool. [facility] Medical History Thyroid disease Post-menopausal Insulin dependent [...] in: other frequency: 1-2 times per week luna/spiritism: Jewish seatbelt use: always ROS Constitutional Constitutional: Denies [...] pending result may have to refer her [facility] ED. She was scheduled for EGD next [...] Desiree Tapia MD; Moy Ramos DO~ Signed [facility]09-16-2025 [facility] Medical Records Department [address] [place] [address] History Physical Exam 10/25/24 1247 MR#: [id number] Acct: [id number] Name: SANDIE ANGELES Rep #: [id number] : 1945 79 From: Moy Ramos DO PCP: Dr. Desiree Tapia MD Status:[facility] Location: [place] [address] HPI - General General Date of Admission: [...] 2 weeks ago. She denies black/tarry stool. [facility] Medical History Thyroid disease Post-menopausal Insulin dependent [...] in: other frequency: 1-2 times per week luna/spiritism: Jewish seatbelt use: always ROS Constitutional Constitutional: Denies fatigue, fever(s), poor appetite, weight gain or weight loss Gastrointestinal Gastrointestinal: D (more content not included)...[facility] 10-25-2024 Consult note [facility] Medical Records Department [address] [place] [address] Pre-Anesthesia Evaluation 10/25/24 1237 MR#: [id number] Acct: [id number] Name: SANDIE ANGELES DAWSON Rep #:[id number] : 1945 79 From: Margarita mckeon CRNA PCP: Dr. Desiree Tapia MD Status:REG [facility] Y Race: C Location: [place] [address] ASA Classification* ASA Classification ASA Classification: 3 [...] Procedure(s): EGD Anesthesia History Anesthesia History - records management manager: Anesthesia History - records management manager Hx Hospitalization No 10/21/24 11:31 Any Problems [...] am of surgery omeprazole PONV PONV - records management manager: PONV - records management manager Female Yes 10/21/24 11:31 HX of Motion [...] 10/25/24 12:27 Respiratory Assessment Respiratory Assessment - records management manager: Respiratory Tract Infection Hx - records management manager Hx Respiratory Tract Infection No 10/21/24 11:31 STOP Sleep Apnea STOP Sleep Apnea - records management manager: STOP Sleep Apnea - records management manager Hx Hypertension Yes: CONTROLLED WITH MED 10/21/24 [...] Tobacco Use History Tobacco Use History - records management manager: Tobacco Use History - records management manager Tobacco Use Non-smoker 09/10/21 10:00 Smoking Status Never smoker 10/21/24 11:31 Hx Tobacco Use No 10/21/24 11:31 Years Smoking Packs Smoked per Day Smoking Cessation Date was within the last 15 years Hx Smoking Cessation Date Hx Smoking Cessation No: patient doesn't smoke 10/21/24 11:31 Counseling Hematologic Medial History Hematologic Hx - records management manager: Hematologic Medical Hx - documentation improvement specialist Hx of Blood Transfusion No 10/21/24 11:31 [...] confused, unrespo /Reproduction History /Reproductive History - records management manager: /Reproductive Hx- records management manager Hx Now No 10/21/24 11:31 Gestational Age [...] in: other frequency: 1-2 times per week luna/spiritism: Jewish seatbelt use: always Review of Systems (Anesthesia) ROS Narrative System reviewed and no additional complaints, except as documented. 10/25/24 1244 nski CITY SOLICITOR> Date _ Margaritaaxel Gonzalez CITY SOLICITOR Cosigner Signature: Date CC: ~ Signed [facility]09-12-2025 Evaluation note* Diagnosis Onset Date Resolution Status Admit Date Iron deficiency anemia chronic Se pt2024 8:20am Anemia acute October 11:57am Dysphagia acute October 11:57am [facility] Work Phone: 1(841) 723-945109-01-2025 [facility] [address] [place] [address] OFFICE VISIT Date of Service: 11/03/24 MR#: [id number] Acct: [id number] Patient: SANDIE ANGELES DAWOSN Rep #: [id number] : 1945 Provider: Moy Ramos DO Age/Sex: 79/F Location: [facility] Status: Signed Intake Vital Signs 10/25/24 12:27 Height 5 ft 1 in Intake Visit Reasons: Cap Endo Chief Complaint: Anemia Allergies Sulfa (Sulfonamide Antibiotics) Allergy (Unknown, Verified 10/25/24 12:26) Hives adhesive tape Adverse Reaction (Intermediate, Verified 10/25/24 12:26) Rash latex Adverse Reaction (Verified 10/25/24 12:26) skin reaction Have you fallen in the past year?: No Office Procedures Procedure Administration Route: PO Administration Location: [facility] Dispensed Units: 1 Capsule Lot Number: [id number] Expiration Date: 08/18/25 Capsule ID Number: [id number] Consent Form Signed: Yes Comments: Tolerated well. Reviewed instructions. Clinical Quality Measures Falls Risk Screening/Assistive Devices Have you fallen in the past year?: No 11/03/24 1036 d DO> Date _ Moy Friend DO Cosigner Signature: Date (if applicable) CC: ~ [facility]07-21-2025 Procedure note [facility] Speech Pathology [address] [place] [address] Modified Barium Swallow Study MR#: [id number] Acct: [id number] Name: SANDIE ANGELES DAWSON Rep #:[id number] : 1945 79 From: Mandie Welch, [facility]-FORMING TUBE SELECTOR Modified Barium Swallow Patient Information Study Date: [...] in the lower esophagus w/ retrograde flow. [place] Thick Liquid via small single sip: cup: [...] Status Active ST Patient: Active Contact Information [facility] Speech Therapy:: Mandie Pham M.A. CCC-FORMING TUBE SELECTOR? Speech-Language Pathologist?? [facility] [address] [place] [address]? [email or web address]?? [phone] 08/29/24 1418 JAKE Gaston-FORMING TUBE SELECTOR> Date/Time Madnie Pham M.A., CCC-FORMING TUBE SELECTOR Co-Signature Required for all Medicare patients Date/Time Co-Signature CC: ~ 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 Work Phone: 1(186) 580-704002-11-2025 Evaluation note* Diagnosis Onset Date Resolution Status Admit Date Cerebrovascular disease chronic F ebruary 2024 12:49pm Polyneuropathy chronic March 122024 12:49pm Post herpetic neuralgia chronic F ebruary 2024 12:49pm Post-polio syndrome chronic Febru mitch 2024 12:49pm [facility] Work Phone: 1(802) 186-204802-11-2025 Evaluation note* Diagnosis Onset Date Resolution Status Admit Date Cerebrovascular disease chronic F ebruary 2024 12:49pm Polyneuropathy chronic March 122024 12:49pm Post herpetic neuralgia chronic F ebruary 2024 12:49pm Post-polio syndrome chronic Febru mitch 2024 12:49pm Carotid artery stenosis acute M arch 2024 12:59pm Peripheral arterial disease acute April 19, 2024 12:59pm [facility] Work Phone: 1(822) 564-540402-11-2025 Evaluation note* Diagnosis Onset Date Resolution Status [...] 12:57pm 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 102024 12:57pm [facility] Work Phone: 1(945) 739-2896760529-33-6663 [facility] Medical Records Department [address] [place] [address] History Physical Exam 01/04/24 0740 MR#: [id number] Acct: [id number] Name: SANDIE ANGELES Rep #: [id number] : 1945 78 From: [facility] Friend PCP: Dr. Desiree Tapia MD Status:[facility] Location: [place] [address] History and Physical Date of Admission: 01/04/24 Chief Complaint: dysphagia, anemia Details: SANDIE ANGELES, is a 78 F who presents to the office today for establishment with [facility]. Pt has a PMHx of chronic renal [...] most recent episode of while eating a yemeni fernandez. She is not too concerned about [...] Appearance: average body habitus and well nourished [facility] Head: normal to inspection Ears: hearing grossly [...] Dr. Desiree Tapia MD; Moy Ramos DO [facility]igned[facility] [facility] Author Stanislav Altamirano [facility] Note Date/Time October 25, 2024 1:53pm [facility] Medical Records Department [address] [place] [address] Anesthesia Postop Eval I 10/25/24 1352 MR#: [id number] Acct: [id number] Name: SANDIE ANGELES Rep #:[id number] : 1945 79 From: Stanislav Altamirano PCP: Dr. Desiree Tapia MD Status:REG [facility] Y Race: C Location: [place] [address] Anesthesia: Postop Eval I Current Vital Signs [...] Stanislav Chauhan Signature: Date CC: ~ Signed [facility] Work Phone: Evaluation note* Diagnosis Onset Date Resolution Status Ataxia acute Disequilibrium acute Weakness acute [facility] Work Phone: Evaluation note* Diagnosis Onset Date Resolution Status Ataxia acute 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 Diabetes mellitus acute Disequilibrium acute Rosacea acute Weakness acute [facility] Work Phone: Evaluation noteNo assessment information available 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 Work Phone: Hospital Discharge instructionsSt[facility] Work Phone: Progress note Author Moy Ramos [facility] Note Date/Time November 03, 2024 10:36am [facility] [address] [place] [address] OFFICE VISIT Date of Service: 11/03/24 MR#: [id number] Acct: [id number] Patient: BRIDGETTESANDIE Rep #: [id number] : 1945 Provider: Moy Ramos DO Age/Sex: 79/F Location: [email or web address] Status: Signed Intake Vital Signs 10/25/24 12:27 Height 5 ft 1 in Intake Visit Reasons: Cap Endo Chief Complaint: Anemia Allergies Sulfa (Sulfonamide Antibiotics) Allergy (Unknown, Verified 10/25/24 12:26) Hives adhesive tape Adverse Reaction (Intermediate, Verified 10/25/24 12:26) Rash latex Adverse Reaction (Verified 10/25/24 12:26) skin reaction Have you fallen in the past year?: No Office Procedures Procedure Administration Route: PO Administration Location: [facility] Dispensed Units: 1 Capsule Lot Number: [id number] Expiration Date: 08/18/25 Capsule ID Number: [id number] Consent Form Signed: Yes Comments: Tolerated well. Reviewed instructions. Clinical Quality Measures Falls Risk Screening/Assistive Devices Have you fallen in the past year?: No 11/03/24 1036 <Electronically signed by Moy brown DO> Date _ Moy Pablo Signature: Date (if applicable) CC: ~ [facility] Work Phone: Reason for referral (narrative)No reason for referral information availableWTriHealth Work Phone: Summary Purpose Family History No [...] Yes September 09, 2021 11:37am Power of Manager Biologics Yes September 09 11:37am Name of Medical Power of Manager Biologics VANDANA ANGELES September 09, 2021 11:37am Advance Directive Response Recorded Date/ Time Name of Medical Power of Manager Biologics Vandana Angeles September 09, 2021 2:25pm Living Will Yes September 09, 2021 2:25pm Power of Manager Biologics Yes September 09 2:25pm Advance Directive Response Recorded Date/ Time Living Will Yes September 09, 2021 1:25pm Power of Manager Biologics Yes September 09 1:25pm Advance Directive Response Recorded Date/ Time Living Will Yes September 09, 2021 2:25pm Power of Manager Biologics Yes September 09 2:25pm Advance Directive Response Recorded Date/ Time Living Will Yes September 09, 2021 1:25pm Power of Manager Biologics Yes September 09 1:25pm Living Will Yes December 30, 024 10:03am Power of Manager Biologics Yes December 31, 2023 10:03am Name of Medical Power of Manager Biologics VANDANA December 31, 2023 10:03am Advance Directive Response Recorded Date/ Time Living Will Yes September 09, 2021 2:25pm Do you have a Healthcare Power of Manager Biologics? Yes September 09, 2021 2:25pm Living Will Yes December 30, 2 024 11:03am Do you have a Healthcare Power of Manager Biologics? Yes December 31, 2023 11:03am Name of Medical Power of Manager Biologics VANDANA December 31, 2023 11:03am Advance Directive Response Recorded Date/ Time Living Will Yes September 09, 2021 2:25pm Do you have a Healthcare Power of Manager Biologics? Yes September 09, 2021 2:25pm Advance Directive Response Recorded Date/ Time Do you have a Healthcare Power of Manager Biologics? Yes October 21, 2024 11:31am Chief Complaint [...] section and content) DATE CREATED AUTHOR 10/20/2017 [facility] DATE CREATED AUTHOR AUTHOR'S ORGANIZ ATION 01/18/2022 [facility] ([place]) DATE CREATED AUTHOR AUTHOR'S ORGANIZ ATION 11/24/2024 [facility] Goals (unrecognized section and content) Goals [...] Dr. Desiree Tapia MD Primary Care Provider, [facility] Provider Active Dr. Surendra Hidalgo MD [...] Inactive Member Role/Relationship Status Dates Dr. Desiree Tapai MD Primary care physician Active Start: October 21, 2024 End: October 21, 2024 Dr. Desiree Tapia MD Referring Provider Active Start: October 21, 2024 End: October 21, 2024 SZUETTE Carlson Attending physician Active Start: October 21, [...] BE BASED ON THE PRIMARY CLINICAL RECORDS. [employer] provides no warranty or guarantee of the accuracy or completeness of information in this document.
== END | disposition home or self-care (01) ==
LOC: US 07:52
PROVIDERS: PCP Family Medicine; Referring Provider Internal Medicine Gastroenterology; Visit Provider Internal Medicine Gastroenterology
DX: K76.0 Fatty (change of) liver, not elsewhere classified (principal)
CPT/HCPCS: 76705; 76981

== ENCOUNTER → 2024-11-28 | Outpatient (CLI) | payer MEDICARE, SELFPAY ==
[2024-11-28 18:15] LABS: Hematocrit 31.5 % (37-47); Hemoglobin 9.5 g/dL (12.0-15.0); Mean Corp Hgb Conc 30.2 g/dL (32-36); Mean Corpuscular Volume 81.2 fL (81-99); Mean Platelet Vol. 12.5 fl (6.2-12.0); Platelet Count 250 K/mm3 (150-450); RBC Distribution Width CV 16.8 % (11.6-14.6); RBC Distribution Width SD 49.5 fl (35.1-43.9); Red Blood Count 3.88 M/mm3 (4.2-5.4); White Blood Count 7.3 K/mm3 (4.4-11.0)
[2024-11-28 18:35] LABS: AST(SGOT) 30 U/L (<=31); Alanine Aminotransfer ALT/SGPT 13 U/L (<=34); Albumin, Serum 3.6 g/dL (3.4-4.8); Alkaline Phosphatase 105 U/L (35-104); Anion Gap 17 (5-15); BUN 17 mg/dL (4-19); BUN/Creat Ratio 12.3 RATIO (10-20); Calcium,Total 8.8 mg/dL (7.6-11.0); Carbon Dioxide 20.0 mmol/L (21.0-32.0); Chloride 105 mmol/L (98-108); Globulin 4.2 g/dL (2.2-4.2); Glucose 200 mg/dL (70-99); Potassium 4.1 mmol/L (3.3-5.1)
== END | disposition home or self-care (01) ==
PROVIDERS: PCP Family Medicine; Referring Provider Psychiatry & Neurology Neurology; Visit Provider Psychiatry & Neurology Neurology
DX: D64.9 Anemia, unspecified (principal)
CPT/HCPCS: 36415; 80053; 85027

== ENCOUNTER 2024-12-11 15:04 | Emergency (ER) | payer MEDICARE, SELFPAY ==
[2024-12-11 15:05] VITALS: BP 153/53; PULSE 85; RESP 20; TEMP 36.8; O2SAT 100
[2024-12-11 16:40] LABS: Hematocrit 31.6 % (37-47); Hemoglobin 9.7 g/dL (12.0-15.0); Immature Granulocytes Count 0.020 X10^3/uL (0.0-0.0); Mean Corp Hgb Conc 30.7 g/dL (32-36); Mean Corpuscular Volume 80.2 fL (81-99); Mean Platelet Vol. 11.1 fl (6.2-12.0); NRBC Flagged by Analyzer 0 % (0-5); Platelet Count 207 K/mm3 (150-450); RBC Distribution Width CV 16.9 % (11.6-14.6); RBC Distribution Width SD 49.3 fl (35.1-43.9); Red Blood Count 3.94 M/mm3 (4.2-5.4); White Blood Count 4.3 K/mm3 (4.4-11.0)
[2024-12-11 17:04] VITALS: BP 147/69; PULSE 72; RESP 16; O2SAT 100
--- NOTE | 2024-12-11 17:07 | EX.ED.DYSGE1 ---
HPI History of Present Illness Chief Complaint: Abd Pain Detail of Chief Complaint: Abdominal distention, discomfort, anorexia Informant: patient and spouse/S.O. Onset/Context/Timing Onset: Days Context: Gradual Onset Timing: Continuous Quality: Sense of fullness and distention Location: Entire abdomen Current Severity: Moderate Maximum Severity: Moderate Worsened by: Attempt to eat or drink anything Relieved by: Nothing Associated Symptoms Associated Symptoms: Nausea Narrative Narrative: Patient is an 79-year-old woman. She has recently been seen by Dr. Ramos. She has fatty liver infiltrates and reported fibrosis of the liver. She presents because of bloating, distention, nausea without vomiting or constipation. She denies diarrhea. She denies change in color, consistency or caliber of her stool. She states she is still fluctuating. She states she had an ultrasound recently that revealed gallstones. She denies intolerance to any particular food. She states she can eat more than 1 bite of anything. Yesterday she had 1 bite of her sandwich. Today she had 6 ounces of grapefruit juice. She does endorse weight loss of 3 pounds over the past week. She states that her had to purchase her new bottoms because of the waistband causing her irritation and pain inferior to the umbilicus. She denies dysuria, frequency, urgency or hematuria. She denies history of bowel obstruction. Past surgical history tubal ligation at the age of 26. Prior similar symptoms: No Recent Illness/Hospitalization: Yes (Recent EGD and office visit with Dr. Ramos.) [facility] Medical History Thyroid disease Post-menopausal Insulin dependent diabetes mellitus Ambulates with cane Low iron Anemia Skin tear Migraine headache DDD (degenerative disc disease), cervical Lightheadedness Dietary restriction Difficulty swallowing History of hiatal hernia History of GI bleed Non-smoker Shortness of breath on exertion Leg cramps History of pain when walking History of edema Cardiology follow-up encounter Heart murmur History of Holter monitoring Wears glasses Thyroid disease History of echocardiogram Walker as ambulation aid Pancytopenia Thalamic infarct, acute Diabetic retinopathy Stroke Shingles Neuropathy High cholesterol Arthritis GERD (gastroesophageal reflux disease) Rosacea Post-polio syndrome History of poliomyelitis HTN (hypertension) Home Medications ?Medication ?Instructions ?Recorded ?Last Taken ?Type atorvastatin 40 mg tablet 40 mg PO QHS #30 tabs 09/10/21 Unknown Rx losartan 100 mg tablet 100 mg PO DAILY 05/07/22 10/25/24 07:30 History miscellaneous medical supply #2 ea 07/17/22 Unknown Rx glipizide 5 mg tablet 5 mg PO DAILY diabetes 08/05/23 Unknown History ketoconazole 2 % shampoo 1 applic topical 3XW PRN PER 08/05/23 Unknown History metformin 500 mg tablet 500 mg PO BID diabetes 08/05/23 Unknown History amlodipine 10 mg tablet 10 mg PO DAILY 12/31/23 10/25/24 07:30 History insulin glargine 100 unit/mL (3 18 unit subcut BID dm 04/19/24 Unknown History mL) subcutaneous pen (Lantus Solostar U-100 Insulin) aspirin 81 mg tablet,delayed 81 mg PO .QOD 10/21/24 Unknown History release (Adult Low Dose Aspirin) ferrous fumarate 324 mg (106 mg 324 mg PO DAILY 10/21/24 Unknown History iron) tablet omeprazole 40 mg capsule,delayed 40 mg PO BID #60 caps 11/02/24 Unknown Rx release gabapentin 100 mg capsule 100 mg PO QODAY #45 caps 11/29/24 Unknown Rx Allergy/AdvReac Type Severity Reaction Status Date / Time Sulfa (Sulfonamide Allergy Unknown Hives Verified 12/11/24 15:05 Antibiotics) adhesive tape AdvReac Intermediate Rash Verified 12/11/24 15:05 latex AdvReac skin Verified 12/11/24 15:05 reaction Family History Father Diabetes Hypertension High cholesterol Angina at rest Heart disease Kidney disease Mother Bowel disease Grandmother CVA (cerebral vascular accident) Aunt CVA (cerebral vascular accident) Surgical History History of esophagogastroduodenoscopy (EGD) Hx of colonoscopy Hx of right cataract extraction Hx of left cataract extraction Hx of lithotripsy Social History household members: spouse current occupational status: retired Smoking Status: Never smoker second hand exposure: No alcohol intake: never substance use type: does not use caffeine: Yes Type: coffee Number of servings: 1 what type of physical activity do you participate in: other frequency: 1-2 times per week elijah/yazidism: Confucianism seatbelt use: always ROS ROS ED Constitutional Constitutional ED: Reports weight loss; Denies chills, fever(s), subjective or sweats Eyes Eyes: Denies blurry vision or change in vision ENT ENT ED: Denies ear pain, rhinorrhea or sore throat Cardiovascular Cardiovascular: Denies chest pain or palpitations Respiratory/Chest Respiratory/Chest: Denies cough, dyspnea or dyspnea on exertion Gastrointestinal Gastrointestinal: Reports abdominal pain and nausea; Denies constipation, diarrhea, melena or vomiting Genitourinary Genitourinary ED: Denies dysuria, hematuria or urinary frequency Musculoskeletal Musculoskeletal: Denies arthralgias, back pain or myalgias Integumentary Denies rash Neurologic Neurologic: Reports weakness Endocrine Endocrinology: Denies cold intolerance or heat intolerance Hematologic/Lymphatic Hematologic/Lymphatic: Reports systems reviewed and no addt'l complaints, except as documented EXAM Physical Exam Const Vital Signs: 12/11/24 15:05 12/11/24 17:04 12/11/24 19:00 Temperature 98.2 F Temperature Source Oral Pulse Rate 85 72 76 Respiratory Rate 20 H 16 Blood Pressure 153/53 H 147/69 H 157/68 H Blood Pressure Mean 86 95 97 Pulse Ox 100 100 98 Oxygen Delivery Method Room Air Positive well nourished and well developed Constitutional Narrative: Patient appears pale. She does not appear well. Blood pressure slightly elevated. General Appearance ED: well developed and pallor HEENT Reports dry mucous membranes HEENT Narrative: Head is atraumatic and normocephalic. Ears are normal. Nares are patent. Posterior pharynx is normal Mouth ED: Yes dry mucous membranes Mouth: dry mucous membranes Eyes PERRL and EOMs intact bilaterally General Eye ED: Yes scleral icterus; Negative for pale conjunctiva Neck no lymphadenopathy, supple and no JVD Resp normal respiratory effort and clear to auscultation bilaterally Cardio regular rate, regular rhythm, S1 normal heart sound, S2 normal heart sound and no murmurs GI GI Narrative: Abdomen is distended tympanitic with slightly high-pitched bowel sounds. Unable to assess for hepatosplenomegaly due to her distention. There may be a fluid wave. Patient has greatest tenderness right and left upper quadrant. More so left of the epigastrium. 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 Nurse triage orders were initiated. CBC was added. Suspect patient will need a CAT scan. After reviewing her prior outpatient records of his note she did have an ultrasound she does have gallstones. If liver enzymes elevate will obtain ultrasound if liver enzymes are normal will perform a CAT scan. Lab Data Labs: Laboratory Results - last 24 hr 12/11/24 12/11/24 16:33 17:31 WBC 4.3 L 3.6 L RBC 3.94 L 3.55 L Hgb 9.7 L 8.9 L Hct 31.6 L 28.5 L MCV 80.2 L 80.3 L MCH 24.6 L 25.1 L MCHC 30.7 L 31.2 L RDW Std Deviation 49.3 H 49.5 H RDW Coeff of Lilian 16.9 H 17.1 H Plt Count 207 164 MPV 11.1 11.1 Immature Gran % (Auto) 0.500 0.300 Neut % (Auto) 75.1 H 74.2 H Lymph % (Auto) 14.5 L 15.4 L [place] % (Auto) 7.1 7.7 Eos % (Auto) 1.6 1.6 Baso % (Auto) 1.2 H 0.8 Absolute Neuts (auto) 3.3 2.7 Absolute Lymphs (auto) 0.63 L 0.56 L Nucleated RBC % 0 0 Sodium 140 Potassium 4.2 Chloride 105 Carbon Dioxide 22.2 Anion Gap 12 BUN 16 Creatinine 1.38 H Est GFR (MDRD) Non-Af 38 L BUN/Creatinine Ratio 11.2 Glucose 183 H Calcium 9.1 Total Bilirubin 0.96 AST 38 H ALT 17 Alkaline Phosphatase 109 H Total Protein 7.7 Albumin 3.5 Globulin 4.2 Albumin/Globulin Ratio 0.8 L Lipase 64 Radiography Diagnostic Testing: Clinical Impression(s) from Imaging Studies Abdomen/Pelvis CT 12/11/24 18:33 IMPRESSION: 1. Cirrhosis with [id number] volume of ascites. 2. Mild diffuse colonic wall thickening could be the result of colitis or portal colopathy. Additionally, there is colonic diverticulosis. 3. Mild wall enhancement of the renal pelvises, as can be seen with pyelitis/urinary tract infection. Correlate with urinalysis. 4. Small left pleural effusion. 5. Left adrenal nodule measuring 1.7 cm. Recommend nonemergent adrenal CT per ACR white paper guidelines. 6. Cholelithiasis. Reading Location: [id number] Treatment and Re-Evaluation :: Interpretation of CT was reviewed by me. Suspect patient symptoms are due to the significant ascites due to the cirrhosis. Patient was made aware of this. Will put in an order for outpatient paracentesis. Report should go to Dr. Khan who she has an appointment with and Friend. 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), BP (high blood pressure), Type 2 diabetes mellitus treated with insulin, Iron deficiency anemia, Peripheral arterial disease Instructions: ED Ascites, ED Cirrhosis Prescriptions: No Action losartan 100 mg tablet 100 mg PO DAILY aspirin [Adult Low Dose Aspirin] 81 mg tablet,delayed release (DR/EC) 81 mg PO .QOD ketoconazole 2 % shampoo 1 applic topical 3XW PRN (Reason: PER DR) gabapentin 100 mg capsule 100 mg PO QODAY Qty: 45 1RF glipizide 5 mg tablet 5 mg PO DAILY metformin 500 mg tablet 500 mg PO BID atorvastatin 40 mg Tablet 40 mg PO QHS Qty: 30 0RF insulin glargine [Lantus Solostar U-100 Insulin] 100 unit/mL (3 mL) insulin pen 18 unit subcut BID amlodipine 10 mg tablet 10 mg PO DAILY ferrous fumarate 324 mg (106 mg iron) tablet 324 mg PO DAILY (DME) miscellaneous medical supply Misc See Rx Instructions .Route Qty: 2 1RF Rx Instructions: 15-20mmHg knee-high measured compression stockings to be worn as directed; open or closed toe per patient preference omeprazole 40 mg capsule,delayed release(DR/EC) 40 mg PO BID Qty: 60 1RF Other Ambulatory Orders: Paracentesis with US (Routine) Facility: [facility] - Location: [facility] Ordered By: Dr. Zion Colindres Primary Care Provider: Desiree Tapia Referrals: Desiree Tapia MD [Primary Care Provider, Family Practice] - 1-2 Weeks Tucker Castrejon MD [Med Staff - Active Staff, Internal Medicine] - 1-2 Weeks Print Language: Greek Disposition Disposition: Home, Self Care
[2024-12-11 17:12] LABS: Lipase 64 U/L (13-75)
[2024-12-11 17:15] LABS: AST(SGOT) 38 U/L (<=31); Alanine Aminotransfer ALT/SGPT 17 U/L (<=34); Albumin, Serum 3.5 g/dL (3.4-4.8); Alkaline Phosphatase 109 U/L (35-104); Anion Gap 12 (5-15); BUN 16 mg/dL (4-19); BUN/Creat Ratio 11.2 RATIO (10-20); Calcium,Total 9.1 mg/dL (7.6-11.0); Carbon Dioxide 22.2 mmol/L (21.0-32.0); Chloride 105 mmol/L (98-108); Globulin 4.2 g/dL (2.2-4.2); Glucose 183 mg/dL (70-99); Potassium 4.2 mmol/L (3.3-5.1)
[2024-12-11 17:40] LABS: Hematocrit 28.5 % (37-47); Hemoglobin 8.9 g/dL (12.0-15.0); Immature Granulocytes Count 0.010 X10^3/uL (0.0-0.0); Mean Corp Hgb Conc 31.2 g/dL (32-36); Mean Corpuscular Volume 80.3 fL (81-99); Mean Platelet Vol. 11.1 fl (6.2-12.0); NRBC Flagged by Analyzer 0 % (0-5); POSITIVE DIFFERENTIAL YES; Platelet Count 164 K/mm3 (150-450); RBC Distribution Width CV 17.1 % (11.6-14.6); RBC Distribution Width SD 49.5 fl (35.1-43.9); Red Blood Count 3.55 M/mm3 (4.2-5.4); White Blood Count 3.6 K/mm3 (4.4-11.0)
--- NOTE | 2024-12-11 18:33 | CT_ITS ---
PROCEDURE: CT/Abdomen/Pelvis W IV Cont ONLY
[2024-12-11 19:00] VITALS: BP 157/68; PULSE 76; O2SAT 98
[2024-12-11 19:27] VITALS: BMI 29.5
[2024-12-11 20:22] VITALS: BP 158/43; PULSE 76; RESP 18; TEMP 36.9; O2SAT 99
== END 2024-12-11 20:33 | disposition home or self-care (01) ==
PROVIDERS: Emergency Provider Emergency Medicine; PCP Family Medicine; Visit Provider Emergency Medicine
DX: R10.84 Generalized abdominal pain (principal); K74.60 Unspecified cirrhosis of liver; Z79.4 Long term (current) use of insulin; E11.9 Type 2 diabetes mellitus without complications; K75.81 Nonalcoholic steatohepatitis (NASH); D50.9 Iron deficiency anemia, unspecified; E78.00 Pure hypercholesterolemia, unspecified; R03.0 Elevated blood-pressure reading, without diagnosis of hypertension; R18.8 Other ascites; I73.9 Peripheral vascular disease, unspecified; I10 Essential (primary) hypertension; Z79.899 Other long term (current) drug therapy; Z79.84 Long term (current) use of oral hypoglycemic drugs; Z79.82 Long term (current) use of aspirin; K21.9 Gastro-esophageal reflux disease without esophagitis; Z98.41 Cataract extraction status, right eye; Z98.42 Cataract extraction status, left eye
CPT/HCPCS: 74177; 80053; 83690; 85025; 96374; 99282; Q9967; A4216; J2405

== ENCOUNTER → 2024-12-15 | Outpatient (CLI) | payer MEDICARE, SELFPAY ==
--- NOTE | 2024-12-15 09:54 | US_ITS ---
PROCEDURE: PARACENTESIS WITH US 12/15/2024 REASON FOR EXAM: CIRRHOSIS. Ascites. TECHNIQUE: PARACENTESIS WITH US FINDINGS: Initial images demonstrate a [id number] Procedure: Following informed consent, an using standard sterile technique, an ultrasound- guided right abdominal diagnostic and therapeutic paracentesis was performed. 2% lidocaine local anesthesia was followed by placement of a 5 Sinhala Yueh catheter into the pleural fluid collection. A total of a proximally 3420 mL clear yellow fluid was successfully removed, a portion sent to the laboratory for evaluation. No complication was encountered, and the patient left the department in good condition without significant complaint. US/Paracentesis with US IMPRESSION: Successful ultrasound-guided therapeutic and diagnostic paracentesis. Laborato ry results pending. Reading Location: [place] [id number]
[2024-12-15 10:46] LABS: Hematocrit 31.3 % (37-47); Hemoglobin 9.8 g/dL (12.0-15.0); Immature Granulocytes Count 0.010 X10^3/uL (0.0-0.0); Mean Corp Hgb Conc 31.3 g/dL (32-36); Mean Corpuscular Volume 80.9 fL (81-99); Mean Platelet Vol. 11.5 fl (6.2-12.0); NRBC Flagged by Analyzer 0 % (0-5); Platelet Count 231 K/mm3 (150-450); RBC Distribution Width CV 17.3 % (11.6-14.6); RBC Distribution Width SD 50.8 fl (35.1-43.9); Red Blood Count 3.87 M/mm3 (4.2-5.4); White Blood Count 5.3 K/mm3 (4.4-11.0)
[2024-12-15 11:06] VITALS: BP 139/55; PULSE 92; RESP 18; TEMP 36.3; O2SAT 95
--- NOTE | 2024-12-15 11:10 | FLU_PTH ---
PATIENT: RAOUL ANGELES LOC: [facility]#:[id number] AGE/SX: 79/F ROOM: RE12/15/[address]: Dr. Moy Ramos DO : 1945 BED: DIS: 12/15/2024 SPEC #: [id number] RECD: 12/15/24 11:56 STATUS: EDIS RELewis #: [id number] VANESSA: 12/15/24 11:[address]: Moy Ramos DEPT: CYTOLOGY RECD BY: Yosef Marshall ENTERED: 12/15/24 13:33 SP TYPE: Fluid OTHR DR: MD Lesly Russell PA Tissues: A - PARACENTESIS FLUID Procedures: Special Stain Group II Surgery Specimen Level IV Cytospin Fluid HEADER OPERATION: Paracentesis fluid, right lower quadrant PRE-OP DIAGNOSIS: Ascites TISSUE SUBMITTED: A- Paracentesis fluid for cytology DIAGNOSIS CYTOLOGY A. Ascitic fluid, paracentesis (cytospin, cellblock): - No malignant cells identified. CYTOLOGY STUDY Slides are reviewed. CYTOLOGY GROSS A. Received is 120 ml of cloudy-yellow fluid labeled with the patient's name and and designated per the requisition as "Paracentesis fluid." Submitted for cytology and cell block preparation. Mr 12/15/2024 CPT: 35765,53479
[2024-12-15 11:12] LABS: Prothrombin Time (Protime)PT. 15.9 SECONDS (11.7-14.9)
[2024-12-15] MEDS: Lidocaine 2% (20 ml mdv) 20 ML Vial INFILT (11:14)
[2024-12-15 11:15] VITALS: BP 143/62; PULSE 89; RESP 18; O2SAT 96
[2024-12-15 11:20] LABS: AST(SGOT) 32 U/L (<=31); Alanine Aminotransfer ALT/SGPT 13 U/L (<=34); Albumin, Serum 3.4 g/dL (3.4-4.8); Alkaline Phosphatase 101 U/L (35-104); Anion Gap 14 (5-15); BUN 25 mg/dL (4-19); BUN/Creat Ratio 13.3 RATIO (10-20); Calcium,Total 8.9 mg/dL (7.6-11.0); Carbon Dioxide 21.2 mmol/L (21.0-32.0); Chloride 108 mmol/L (98-108); Globulin 4.2 g/dL (2.2-4.2); Glucose 151 mg/dL (70-99); Potassium 4.8 mmol/L (3.3-5.1)
[2024-12-15 11:30] VITALS: BP 135/53; PULSE 83; RESP 18; O2SAT 96
[2024-12-15 11:35] VITALS: BP 142/49; PULSE 82; RESP 18; O2SAT 98
[2024-12-15 11:39] VITALS: BP 141/44; PULSE 84; RESP 18; O2SAT 97
[2024-12-15 11:45] VITALS: BP 166/55; PULSE 89; RESP 18; O2SAT 97
[2024-12-15 12:01] LABS: Cytology, Body Fluid / CSF SEE PATHOLOGY REPORT
[2024-12-16 03:07] LABS: HEPATITIS B SURFACE AG Negative (Negative); Hep C Antibodies Non Reactive (Non Reactive)
== END | disposition home or self-care (01) ==
PROVIDERS: Student in an Organized Health Care Education/Training Program; PCP Family Medicine; Referring Provider Internal Medicine Gastroenterology; Visit Provider Internal Medicine Gastroenterology
DX: K74.69 Other cirrhosis of liver (principal); R18.8 Other ascites; K75.81 Nonalcoholic steatohepatitis (NASH)
CPT/HCPCS: 49083; 36415; 80053; 80074; 85025; 85610; 88108; 88305; 88313

== ENCOUNTER → 2025-01-03 | Outpatient (CLI) | payer MEDICARE, SELFPAY ==
--- NOTE | 2025-01-03 11:01 | BD_ITS ---
PROCEDURE: DEXA BONE DENSITY STUDY 01/03/2025 REASON FOR EXAM: OSTEOPENIA F, age 79 y/o . Postmenopausal. TECHNIQUE: Procedure Code: BDDBD Modality: DX Procedure: DEXA BONE DENSITY STUDY COMPARISON: None FINDINGS: BMD and T-SCORES Lumbar spine: 0.813 g/cm2, T-score -1.9 Levels: L1 through L3 Left femoral neck: 0.483 g/cm2, T-score -3.3 Left total hip: 0.635 g/cm2, T-score -2.5 Right femoral neck: 0.381 g/cm2, T-score -4.2 Right total hip: 0.531 g/cm2, T-score -3.4 The World Health Organization has defined the following categories based on bone density: Normal bone density: T-score equal to or greater than -1.0 Osteopenia: T-score between -1.0 and -2.5 Osteoporosis: T-score equal to or less than -2.5 FRAX (or Comparable) Fracture Risk Assessment: 10 Year Probability of Fracture: Major Osteoporotic Fracture: 38% Hip Fracture: 21% (Note: FRAX is not to be reported in setting of normal range bone density, osteoporosis on DEXA, known history of osteoporosis, prior osteoporotic hip or vertebral fracture, or for any patient undergoing pharmacological treatment for bone loss.) The National Osteoporosis Foundation (NOF) recommends pharmacological treatment for patients with a FRAX 10-year risk of 3% or higher for a hip fracture, or 20% or higher for a major osteoporotic fracture, to prevent osteoporosis and reduce fracture risk. The patient does meet the pharmacological treatment recommendations for prevention of osteoporosis. BD/Dexa Bone Density Study IMPRESSION: OSTEOPOROSIS. Recommend follow-up as clinically warranted. Reading Location: [id number]
== END | disposition home or self-care (01) ==
PROVIDERS: PCP Family Medicine; Referring Provider Psychiatry & Neurology Neurology; Visit Provider Psychiatry & Neurology Neurology
DX: Z78.0 Asymptomatic menopausal state (principal)
CPT/HCPCS: 77080

== ENCOUNTER 2025-01-16 06:14 | Day surgery (SDC) | payer MEDICARE, SELFPAY ==
--- NOTE | 2025-01-13 13:03 | PAT.ANESEVAL ---
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 When Was Last Pacemaker Check QUESTION #4 FULL TEXT: You/Your Family Experience fever (hyperthermia) with Anesthesia Last Oral Intake Last Oral intake: Last Oral Intake NPO since Meds taken in AM with sips of water? Meds patient instructed to take am of surgery PONV PONV - cancer genetics assistant: PONV - cancer genetics assistant Female Yes 01/13/25 10:50 HX of Motion Sickness No 01/13/25 10:50 HX of N/V After Surgery No 01/13/25 10:50 Non-Smoker Yes 01/13/25 10:50 Duration of Surgery greater No 01/13/25 10:50 than 60 minutes Number of Risk Factors 2 01/13/25 10:50 PONV Score Moderate Risk 01/13/25 10:50 Height & Weight Height & Weight: Anesthesia: Height & Weight Height 5 ft 1 in 12/15/24 08:38 Respiratory Assessment Respiratory Assessment - cancer genetics assistant: Respiratory Tract Infection Hx - cancer genetics assistant Hx Respiratory Tract Infection No 01/13/25 10:50 STOP Sleep Apnea STOP Sleep Apnea - cancer genetics assistant: STOP Sleep Apnea - cancer genetics assistant Hx Hypertension Yes: CONTROLLED WITH MED 01/13/25 10:50 Hx Sleep Apnea No 01/13/25 10:50 CPAP BIPAP Do you snore loudly (louder No 01/13/25 10:50 than talking or can be heard Do you often feel tired/ No 01/13/25 10:50 fatigued/ sleepy during daytime? Has anyone observed you stop No 01/13/25 10:50 breathing during sleep? STOP Results Negative 01/13/25 10:50 QUESTION #5 FULL TEXT : Do you snore loudly (louder than talking or can be heard through closed doors)? 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 Specify any problems Hx of Preganancy in last 3 N/A 01/13/25 10:50 Months Nurse Filling Out Transfusion NBUCHER 01/13/25 10:50 & Questions: Date: 01/13/25 01/13/25 10:50 Time: 10:54 01/13/25 10:50 Patient unable to answer at this time (ie. confused, unrespo /Reproduction History /Reproductive History - cancer genetics assistant: /Reproductive Hx- cancer genetics assistant Hx Now No 01/13/25 10:50 Gestational Age (in weeks): EDC: Hx Hx Para Hx Section SAB No 01/13/25 10:50 Does the father of the baby or his family experience fever w Father of the baby Malignant Hypertension history comment [facility], [facility] Medical History (Updated 01/13/25 @ 11:07 by Talia Rothman) Cirrhosis Ascites Liver disease Thyroid disease Post-menopausal Insulin dependent diabetes mellitus Ambulates with cane Low iron Anemia Skin tear Migraine headache DDD (degenerative disc disease), cervical Lightheadedness Dietary restriction Difficulty swallowing History of hiatal hernia History of GI bleed Non-smoker Shortness of breath on exertion Leg cramps History of pain when walking History of edema Cardiology follow-up encounter Heart murmur History of Holter monitoring Wears glasses Thyroid disease History of echocardiogram Walker as ambulation aid Pancytopenia Thalamic infarct, acute Diabetic retinopathy Stroke Shingles Neuropathy High cholesterol Arthritis GERD (gastroesophageal reflux disease) Rosacea Post-polio syndrome History of poliomyelitis HTN (hypertension) Home Medications ?Medication ?Instructions ?Recorded ?Last Taken ?Type atorvastatin 40 mg tablet 40 mg PO QHS #30 tabs 09/10/21 Unknown Rx losartan 100 mg tablet 100 mg PO DAILY 05/07/22 10/25/24 07:30 History miscellaneous medical supply #2 ea 07/17/22 Unknown Rx ketoconazole 2 % shampoo 1 applic topical 3XW PRN PER 08/05/23 Unknown History metformin 500 mg tablet 500 mg PO BID diabetes 08/05/23 Unknown History amlodipine 10 mg tablet 10 mg PO DAILY 12/31/23 10/25/24 07:30 History insulin glargine 100 unit/mL (3 16 unit subcut BID dm 04/19/24 Unknown History mL) subcutaneous pen (Lantus Solostar U-100 Insulin) aspirin 81 mg tablet,delayed 81 mg PO QODAY 10/21/24 Unknown History release (Adult Low Dose Aspirin) gabapentin 100 mg capsule 100 mg PO QODAY #45 caps 11/29/24 Unknown Rx carvedilol 6.25 mg tablet 6.25 mg PO BID #60 tabs 12/15/24 Unknown Rx furosemide 40 mg tablet (Lasix) 40 mg PO QAM #30 tabs 12/15/24 Unknown Rx spironolactone 25 mg tablet 25 mg PO QDAY #30 tabs 12/15/24 Unknown Rx omeprazole 40 mg capsule,delayed 40 mg PO DAILY 01/13/25 Unknown History release Allergy/AdvReac Type Severity Reaction Status Date / Time Sulfa (Sulfonamide Allergy Unknown Hives Verified 01/13/25 10:46 Antibiotics) adhesive tape AdvReac Intermediate Rash Verified 01/13/25 10:46 latex AdvReac skin Verified 01/13/25 10:46 reaction Family History Father Diabetes Hypertension High cholesterol Angina at rest Heart disease Kidney disease Mother Bowel disease Grandmother CVA (cerebral vascular accident) Aunt CVA (cerebral vascular accident) Surgical History History of esophagogastroduodenoscopy (EGD) Hx of colonoscopy Hx of right cataract extraction Hx of left cataract extraction Hx of lithotripsy Social History household members: spouse current occupational status: retired Smoking Status: Never smoker second hand exposure: No alcohol intake: never substance use type: does not use caffeine: Yes Type: coffee Number of servings: 1 what type of physical activity do you participate in: other frequency: 1-2 times per week elijah/samaritan: Baptism seatbelt use: always Audit: Pertinent Findings Pertinent Findings EKG Perinent findings: 09/09/2021. Normal sinus rhythm. Left anterior fascicular block. LVH with repull abnormality. 86 bpm. Echo (EF%) pertinent findings: 09/09/2021. Normal size function EF 65%. Mild focal aortic valve calcification. Additional pertinent findings: Hemoglobin 9.8 g/dL. 12/15/2024. Should be adequate to proceed with procedure. Recommendation Anesthesia Recommendation Anesthesia recommendation: OPTIMIZED for anesthesia
[2025-01-16] VITALS (7 sets, daily range): BP systolic 103–164; BP diastolic 38–90; PULSE 55–68; RESP 16; TEMP 36.2–36.7; O2SAT 98–100; BMI 24.9
--- OUTSIDE RECORDS SUMMARY | 2025-01-16 06:17 | XMS RPT_ITS | CCD ---
Author Organization [facility] Care Team Providers Care Forestry Aid Name Role Phone DESIREE TAPIA Unavailable Unavailable [...] Provider [phone] Dr. Arya Argueta Attending Provider 1([facility])[address] Surendra Hidalgo Referring [...] Provider Regina ANDERSON, Dr. Ramírez Referring Provider Regina ANDERSON, Dr. Ramírez Attending [...] Physician Regina ANDERSON, Dr. Ramírez Referring Provider Lesly Tuttle Attending Physician Richard BAILEY, Dr. Winter Attending Physician Richard BAILEY, Dr. Winter Nurse Practitioner Regina ANDERSON, Dr. Ramírez Primary Care Physician Rocky ANDERSON, Dr. Agosto Attending Physician Rocky ANDERSON, Dr. Agosto Referring Provider Regina ANDERSON, Dr. Ramírez Attending Physician Regina ANDERSON, Dr. Ramírez Referring Provider Lesly Tuttle Attending Physician Lesly Tuttle Referring Provider Richard BAILEY, Dr. Winter Attending Physician [phone] Richard BAILEY, Dr. Winter Nurse Practitioner Haley Lobato Attending Physician Haley Lobato Referring Provider Dr. Arya Argueta MD Attending Physician [phone] Richard BAILEY, Dr. Winter Referring Provider Dr. Zion Colindres MD Emergency Department Physician Lesly Tuttle Nurse Practitioner [phone] Miedel, Desiree Primary Care Unavailable Miedel, Desiree Referring Unavailable Surendra Hidalgo Attending Unavailable Arya Argueta Attending Unavailable Miedel, Desiree Primary Care Unavailable MenardHaley luther Referring Unavailable Miedel, Desiree Primary Care Unavailable Arya Argueta Attending Unavailable Menard, Haley Referring Unavailable Miedel, Desiree Primary Care Unavailable Miedel, Desiree Referring Unavailable Richard, Moy Consulting Unavailable Richard, Moy Attending Unavailable Miedel, Desiree Primary Care Unavailable Lesly Hardwick Referring Unavailable Lesly Hardwick Attending Unavailable Surendra Hidalgo Referring Unavailable Surendra Hidalgo Attending Unavailable Miedel, Desiree Primary Care Unavailable Miedel, Desiree Referring Unavailable Miedel, Desiree Primary Care Unavailable Surendra Hidalgo Attending Unavailable Miedel, Desiree Referring Unavailable Miedel, Desiree Primary Care Unavailable Friend, Moy Attending Unavailable Miedel, Desiree Referring Unavailable Lesly Hardwick Attending Unavailable Miedel, Desiree Primary Care Unavailable Miedel, Desiree Referring Unavailable Miedel, Desiree Primary Care Unavailable Miguel Simon Attending Unavailable Miedel, Desiree Referring Unavailable Miedel, Desiree Primary Care Unavailable Lesly Hardwick Attending Unavailable Miedel, Desiree Attending Unavailable Miedel, Desiree Primary Care Unavailable Miedel, Desiree Primary Care Unavailable Friend, Moy Referring Unavailable FriendMoy Attending Unavailable Lesly Hardwick Consulting Unavailable Miedel, Desiree Primary Care Unavailable Friend, Moy Referring Unavailable Friend, Moy Attending Unavailable Miedel, Desiree Primary Care Unavailable Miedel, Desiree Referring Unavailable Friend, Moy Attending Unavailable Miedel, Desiree Primary Care Unavailable Baddour, Surendra Attending Unavailable Baddour, Surendra Referring Unavailable Miedel, Desiree Referring Unavailable Friend, Moy Attending Unavailable Friend, Moy Consulting Unavailable Miedel, Desiree Primary Care Unavailable Miedel, Desiree Attending Unavailable Miedel, Desiree Primary Care Unavailable Miedel, Desiree Primary Care Unavailable Rocky, Surendra Attending Unavailable Baddour, Surendra Referring Unavailable Miedel, Desiree Primary Care Unavailable Menard, Haley Referring Unavailable Menard, Haley Attending Unavailable Miedel, Desiree Primary Care Unavailable Colindres, Zion Attending Unavailable Miedel, Desiree Primary Care Unavailable Menard, Haley Attending Unavailable Menard, Haley Referring Unavailable Miedel, Desiree Referring Unavailable Friend, Moy Attending Unavailable Miedel, Desiree Primary Care Unavailable Miedel, Desiree Attending Unavailable Miedel, Desiree Referring Unavailable Miedel, Desiree Primary Care Unavailable Miedel, Desiree Referring Unavailable Miedel, Desiree Primary Care Unavailable Menard, Haley Attending Unavailable Miedel, Desiree Referring Unavailable Baddour, Surendra Attending Unavailable Miedel, Desiree Primary Care Unavailable Allergies Allergy Classification Reported Allergen(s) Allergy Type Date of Onset Reaction(s) Facility (20 sources) Adhesive Tape; Translations: [adhesive tape] Propensity to adverse reactions 2 Rash [facility] (20 sources) Sulfonamides (Antibiotic); Translations: [Sulfa (Sulfonamide Antibiotics)] Allergy to substance 2 Hives [facility] (11 sources) Latex Propensity to adverse reactions 5 skin reaction [facility] (1 source) Latex Drug allergy (disorder) 5 [facility] Repository Medications Current Medications Medication Drug Class(es) Dates Sig (Normalized) Sig (Original) amLODIPine 10 mg oral tablet (20 sources) Dihydropyridine Calcium Channel Hayden Start: 12-31-2023 take 1 tablet by mouth once daily Start: 02-20-2022 End: 12-31-2023 take 2 tablets by mouth at bedtime Amlodipine 5 mg tablet Discontinued 10 mg PO AT BEDTIME February 20, 2022 9:15am December 31, 2023 9:55am htn Start: 02-20-2022 take 10 mg by mouth at bedtime Amlodipine Active 10 MG PO AT BEDTIME February 20, 2022 9:15am Start: 08-18-2018 End: 02-20-2022 take 1 tablet by mouth at bedtime Amlodipine 5 MG tablet Discontinued 5 mg PO AT BEDTIME August 17, 2018 11:00pm February 20, 2022 9:18am htn aspirin 81 mg delayed release oral tablet (20 sources) Platelet Aggregation Inhibitor, Nonsteroidal Anti-inflammatory Drug Start: 10-21-2024 Start: 08-19-2023 End: 10-21-2024 Aspirin (Adult Low Dose Aspi rin) 81 mg tablet,delayed release (DR/EC) Discontinued 81 mg PO DAILY August 18, 2023 11:00pm October 21, 2024 7:30am Start: 09-10-2021 End: 08-05-2023 take 1 tablet by mouth once daily Aspirin 81 MG tablet,delayed release (DR/EC) Discontinued 81 mg PO DAILY 30 0 September 10, 2021 12:26pm August 05, 2023 9:37am heart health Start: 08-18-2018 End: 09-10-2021 take 1 tablet by mouth every other day Aspirin 81 MG tablet,delayed release (DR/EC) Discontinued 81 mg PO EVERY OTHER DAY August 17, 2018 11:00pm September 10, 2021 12:27pm heart [facility] atorvastatin 40 mg oral tablet (18 sources) HMG-CoA Reductase Inhibitor Start: 09-10-2021 take 1 tablet by mouth at bedtime carvedilol 6.25 mg oral tablet (1 source) alpha-Adrenergic Hayden, beta-Adrenergic Hayden Start: 12-15-2024 take 1 tablet by mouth twice daily at mealtime Start: 12-15-2024 take 1 tablet by mouth twice d aily at mealtime ferrous fumarate 324 mg oral tablet (4 sources) Start: 10-21-2024 End: 12-15-2024 take 1 tablet by mouth once daily Ferrous Fumarate 324 mg (106 mg iron) tablet Discontinued 324 mg PO DAILY October 20, 2024 11:00pm December 15, 2024 8:31am furosemide 40 mg oral tablet (1 source) Loop Diuretic Start: 12-15-2024 take 1 tablet by mouth once daily in the morning Start: 12-15-2024 take 1 tablet by mouth once da stan in the morning gabapentin 100 mg oral capsule (20 sources) Anti-epileptic Agent Start: 11-29-2024 take 1 capsule by mouth every other day Start: 08-14-2024 End: 11-29-2024 take 1 capsule by mouth every other day Gabapentin 100 mg capsule Discontinued 100 mg PO EVERY OTHER DAY October 20, 2024 11:00pm November 29, 2024 5:55am Start: 12-31-2023 End: 03-22-2024 take 1 capsule by mouth at bedtime Gabapentin 100 mg capsule Discontinued 100 mg PO AT BEDTIME December 31, 2023 12:00am March 22, 2024 5:58pm Start: 09-29-2023 End: 12-31-2023 take 2 capsules by mouth at bedtime Gabapentin 100 mg capsule Discontinued 200 mg PO AT BEDTIME 180 2 September 29, 2023 2:30pm December 31, 2023 10:02am Start: 06-25-2022 End: 09-29-2023 take 1 capsule by mouth once daily in the morning, then take 2 capsules by mouth once daily in the evening Gabapentin 100 mg capsule Discontinued 100 mg .ROUTE .COMPLEX 21 0 June 02, 2023 11:57am September 29, 2023 2:33pm Take 1 capsule orally every morning and 2 capsules orally every evening glipiZIDE 5 mg oral tablet (20 sources) Sulfonylurea Start: 08-05-2023 End: 12-15-2024 take 1 tablet by mouth once daily Glipizide 5 mg tablet Discontinued 5 mg PO DAILY August 05, 2023 9:35am December 15, 2024 8:31am diabetes Start: 08-18-2018 End: 08-05-2023 take 1 tablet by mouth twice daily Glipizide 5 MG tablet Discontinued 5 mg PO TWICE A DAY August 17, 2018 11:00pm August 05, 2023 9:37am diabetes 3 ml insulin glargine 100 un t/ml pen injector (20 sources) Insulin Analog Start: 04-19-2024 Start: 08-05-2023 End: 04-19-2024 Insulin Glargine (Lantus Kristy ostar U-100 Insulin) 100 unit/mL (3 mL) insulin pen Discontinued 24 U SC TWICE A DAY August 05, 2023 9:36am April 19, 2024 12:11pm dm Start: 09-09-2021 End: 08-05-2023 Insulin Glargine (Lantus Kristy ostar U-100 Insulin) 100 unit/mL (3 mL) insulin pen Discontinued 38 U SC AT BEDTIME September 08, 2021 11:00pm August 05, 2023 9:37am dm Start: 08-18-2018 End: 02-20-2022 Insulin Glargine 100 UNITS/M L insulin pen Discontinued 41 U SC DAILY August 17, 2018 11:00pm February 20, 2022 10:19am diabetes Start: 08-18-2018 End: 02-20-2022 Insulin Glargine Discontinue d 41 UNITS SC DAILY August 17, 2018 11:00pm February 20, 2022 10:19am ketoconazole 20 mg/ml medicated shampoo (11 sources) Azole Antifungal Start: 08-05-2023 losartan potassium 100 mg oral tablet (14 sources) Angiotensin 2 Receptor Hayden Start: 2022 take 1 tablet by mouth once daily metFORMIN hydrochloride 500 mg oral tablet (20 sources) Biguanide Start: 08-05-2023 take 1 tablet by mouth twice daily Start: 08-18-2018 End: 08-05-2023 take 2 tablets by mouth twice daily Metformin 500 MG tablet Discontinued 1000 mg PO TWICE A DAY August 17, 2018 11:00pm August 05, 2023 9:37am diabetes Start: 08-18-2018 take 1000 mg by [...] per patient preference Miscellaneous Medical Supply misc (11 sources) Start: 07-17-2022 [facility] [place] 0 .Route 2 July 16, 2022 11:00pm 15-20mmHg knee-high measured compression stockings to be worn as directed; open or closed toe per patient preference Start: 07-17-2022 [facility] .[facility] 2 July 17, 2022 12:00am 15-20mmHg knee-high measured compression stockings to be worn as directed; open or closed toe per patient preference Start: 07-17-2022 [facility] Active 0 .Route 2 July 17, 2022 12:00am 15-20mmHg knee-high measured compression stockings to be worn as directed; open or closed toe per patient preference Start: 07-17-2022 [facility] Active 0 .Route 2 July 16, 2022 11:00pm 15-20mmHg knee-high measured compression stockings to be worn as directed; open or closed toe per patient preference omeprazole 40 mg delayed release oral capsule (14 sources) Proton Pump Inhibitor Start: 01-04-2024 End: 11-02-2024 take 1 capsule by mouth twice daily spironolactone 25 mg oral tablet (1 source) Aldosterone Antagonist Start: 12-15-2024 take 1 tablet by mouth once daily Start: 12-15-2024 take 1 tablet by mouth once da stan Completed/Discontinued Medications Medication Drug Class(es) Dates Sig (Normalized) Sig (Original) acetaminophen 500 mg oral tablet (11 sources) Start: 08-19-2023 End: 04-19-2024 take 2 tablets by mouth every six hours as needed for pain Acetaminophen (Tylenol Extra Strength) 500 mg tablet Discontinued 1000 mg PO EVERY 6 HOURS as needed for pain August 18, 2023 11:00pm April 19, 2024 12:10pm ascorbic acid 500 mg oral capsule (11 sources) Vitamin C Start: 09-29-2023 End: 03-22-2024 take 1 capsule by mouth once daily Ascorbic Acid (Vitamin C) 500 mg capsule Discontinued 500 mg PO DAILY September 28, 2023 11:00pm March 22, 2024 5:58pm clopidogrel 75 mg oral tablet (18 sources) [id number] Platelet Inhibitor Start: 09-10-2021 End: 02-20-2022 take 1 tablet by mouth once daily Clopidogrel 75 mg Tablet Discontinued 75 mg PO DAILY 30 0 September 09, 2021 11:00pm February 20, 2022 10:19am cyclobenzaprine hydrochloride 10 mg oral tablet (11 sources) Muscle Relaxant Start: 08-05-2023 End: 08-19-2023 take 1 tablet by mouth at bedtime as needed Cyclobenzaprine 10 mg tablet Discontinued 10 mg PO BEDTIME as needed August 04, 2023 11:00pm August 19, 2023 2:22pm diclofenac sodium 0.01 mg/mg topical gel (11 sources) Nonsteroidal Anti-inflammatory Drug Start: 08-19-2023 End: 12-31-2023 Diclofenac Sodium (Arthritis Pain (Diclofenac)) 1 % gel Discontinued 2 g TOPICAL ONCE August 18, 2023 11:00pm December 31, 2023 9:56am apply to single elbow, wrist or hand; for hand includes palm/fingers/back of hand ferrous sulfate 325 mg oral tablet (11 sources) Start: 09-29-2023 End: 03-22-2024 take 1 tablet by mouth once daily Ferrous Sulfate 325 mg (65 mg iron) tablet Discontinued 325 mg PO DAILY September 28, 2023 11:00pm March 22, 2024 5:58pm 3 ml insulin lispro 100 unt/ml pen injector (19 sources) Insulin Analog Start: 08-18-2018 End: 2022 Insulin Lispro 100 UNIT/ML insulin pen Discontinued 10 U SQ 1800 August 17, 2018 11:00pm 2022 9:10am diabetes levothyroxine sodium 0.05 mg oral tablet (20 sources) l-Thyroxine Start: 12-31-2023 End: 10-21-2024 take 1 tablet by mouth once daily Levothyroxine 50 mcg tablet Discontinued 50 ug PO DAILY December 31, 2023 12:00am October 21, 2024 7:30am Start: 09-29-2023 End: 12-31-2023 take 1 tablet by mouth once daily Levothyroxine 25 mcg tablet Discontinued 25 ug PO DAILY September 28, 2023 11:00pm December 31, 2023 10:00am Start: 08-05-2023 End: 08-19-2023 take 1 capsule by mouth once daily Levothyroxine 50 mcg capsule Discontinued 50 ug PO DAILY August 04, 2023 11:00pm August 19, 2023 2:19pm lisinopril 40 mg oral tablet (19 sources) Angiotensin Converting Enzyme Inhibitor Start: 08-18-2018 End: 2022 take 1 tablet by mouth at bedtime Lisinopril 40 MG tablet Discontinued 40 mg PO AT BEDTIME August 17, 2018 11:00pm 2022 9:10am htn sucralfate 1000 mg oral tablet (11 sources) Aluminum Complex Start: 01-20-2024 End: 03-16-2024 take 1 tablet by mouth twice daily Sucralfate (Carafate) 1 gram tablet Discontinued 1 g PO TWICE A DAY 112 56 0 January 20, 2024 12:00am March 15, 2024 12:00am March 16, 2024 12:10am vitamin b12 1 mg oral capsule (11 sources) Vitamin B12 Start: 09-29-2023 End: 04-19-2024 take 1 capsule by mouth once daily Cyanocobalamin (Vitamin B-12) 1,000 mcg capsule Discontinued 1000 ug PO DAILY September 28, 2023 11:00pm April 19, 2024 12:10pm Problems Active Problems Problem Classification Problem Date Documented Da te Episodic/Chronic Abdominal pain (2 sources) Acute abdominal pain; Translations: [Generalized abdominal pain] Onset: 12-11-2024 Episodic Acute cerebrovascular disease (19 sources) Other cerebral infarction due to occlusion or stenosis of small artery; Translations: [Cerebrovascular accident (CVA) of right thalamus] Chronic Chronic kidney disease (11 sources) Chronic renal failure; Translations: [Chronic kidney disease, unspecified] 08-19-2023 Chronic Conditions associated with dizziness or vertigo (20 sources) Loss of equilibrium; Translations: [Dizziness and giddiness] Episodic Deficiency and other anemia (11 sources) Pancytopenia; Translations: [Other pancytopenia] 08-19-2023 Chronic Deficiency and other anemia (1 source) Iron deficiency anemia secondary to blood loss (chronic); Translations: [Iron deficiency anemia secondary to blood loss (chronic)] Onset: 09-26-202 5 Chronic Deficiency and other anemia (16 sources) Anemia; Translations: [Anemia, unspecified] 08-05-2023 Episodic Deficiency and other anemia (16 sources) Iron deficiency anemia; Translations: [Iron deficiency anemia, unspecified] 08-19-2023 Episodic Deficiency and other anemia (2 sources) Anemia, unspecified; Translations: [Anemia, unspecified] Onset: Episodic Diabetes mellitus with complications (12 sources) 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; Translations: [Retinopathy due to diabetes mellitus] Onset: 8 08-05-2023 Chronic Diabetes mellitus without complication (20 sources) Diabetes mellitus; Translations: [Type 2 diabetes mellitus without complications] Chronic Essential hypertension (1 source) Hypertensive disorder; Translations: [Essential (primary) hypertension] 12-11-2024 Chronic Hepatitis (4 sources) Cirrhosis - non-alcoholic; Translations: [Nonalcoholic steatohepatitis (KHALIL)] Onset: 5 12-11-2024 Chronic Hypertension with complications and secondary hypertension (1 source) Hypertensive chronic kidney disease with stage 1 through stage 4 chronic kidney disease, or unspecified chronic kidney disease; Translations: [Hypertensive chronic kidney disease with stage 1 through stage 4 chronic kidney disease, or unspecified chronic kidney disease] Onset: Chronic Malaise and fatigue (20 sources) Asthenia; Translations: [Weakness] Episodic Occlusion or stenosis of precerebral arteries (19 sources) Carotid artery stenosis; Translations: [Occlusion and stenosis of unspecified carotid artery] Onset: 5 2022 Chronic Osteoporosis (1 source) Age-related osteoporosis without current pathological fracture; Translations: [Age-related osteoporosis without current pathological fracture] Onset: 5 Chronic Other and ill-defined cerebrovascular disease (17 sources) Cerebellar stroke syndrome; Translations: [Cerebellar stroke syndrome] 02-20-2022 Chronic Other and ill-defined cerebrovascular disease (20 sources) Cerebrovascular disease; Translations: [Cerebrovascular disease, unspecified] 02-20-2022 Chronic Other and ill-defined cerebrovascular disease (5 sources) Cerebrovascular disease, unspecified; Translations: [Unspecified cerebrovascular disease] 02-20-2022 Chronic Other bone disease and musculoskeletal deformities (2 sources) Osteopenia; Translations: [Other specified disorders of bone density and structure, unspecified site] 11-29-2024 Episodic Other circulatory disease (16 sources) Foot pulse absent; Translations: [Other specified symptoms and signs involving the circulatory and respiratory systems] 02-20-2022 Episodic Other circulatory disease (16 sources) Carotid bruit; Translations: [Other specified symptoms and signs involving the circulatory and respiratory systems] 02-20-2022 Episodic Other PLATE CONDITIONER infection and poliomyelitis (20 sources) Post poliomyelitis syndrome; 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] Onset: 5 02-20-2022 Chronic Other connective tissue disease (13 sources) Foot pain; Translations: [Pain in right foot] 02-20-2022 Episodic Other connective tissue disease (3 sources) Pain in right foot; Translations: [Pain in limb] 02-20-2022 Episodic Other connective tissue disease (3 sources) Pain in both feet; Translations: [Pain in right foot] 02-20-2022 Episodic Other ear and sense organ disorders (8 sources) Impacted cerumen; Translations: [Impacted cerumen, right ear] 06-28-2024 Episodic Other ear and sense organ disorders (3 sources) Impacted cerumen in right ear; Translations: [Impacted cerumen, right ear] 10-21-2024 Episodic Other gastrointestinal disorders (20 sources) Dysphagia; Translations: [Dysphagia, unspecified] 11-18-2023 Episodic Other gastrointestinal disorders (1 source) Hepatic ascites; Translations: [Other ascites] 12-11-2024 Episodic Other gastrointestinal disorders (2 sources) Dysphagia, unspecified; Translations: [Dysphagia, unspecified] Onset: 5 Episodic Other inflammatory condition of skin (18 sources) Rosacea; Translations: [Rosacea, unspecified] 09-18-2021 Chronic Other inflammatory condition of skin (1 source) Rosacea, unspecified; Translations: [Rosacea] Chronic Other liver diseases (2 sources) Other cirrhosis of liver; Translations: [Other cirrhosis of liver] Onset: 5 Chronic Other liver diseases (2 sources) Unspecified cirrhosis of liver; Translations: [Unspecified cirrhosis of liver] Onset: 5 Chronic Other liver diseases (1 source) Fatty (change of) liver, not elsewhere classified; Translations: [Fatty (change of) liver, not elsewhere classified] Onset: 5 Chronic Other nervous system disorders (20 sources) Polyneuropathy; Translations: [Polyneuropathy, unspecified] 02-20-2022 Chronic Other nervous system disorders (5 sources) Polyneuropathy, unspecified; Translations: [Unspecified hereditary and idiopathic peripheral neuropathy] 02-20-2022 Chronic Other nervous system disorders (19 sources) Ataxia; Translations: [Ataxia, unspecified] 09-18-2021 Episodic Other nervous system disorders (2 sources) Ataxia, unspecified; Translations: [Lack of coordination] Episodic Other non-traumatic joint disorders (16 sources) Ankle pain; Translations: [Pain in right ankle and joints of right foot] 02-20-2022 Episodic Other non-traumatic joint disorders (3 sources) Pain in right ankle and joints of right foot; Translations: [Pain in joint, ankle and foot] 02-20-2022 Episodic Other screening for suspected conditions (not mental disorders or infectious disease) (17 sources) Electrocardiogram abnormal; Translations: [Abnormal electrocardiogram [ECG] [EKG]] 09-27-2021 Episodic Peripheral and visceral atherosclerosis (19 sources) Peripheral vascular disease, unspecified; Translations: [Peripheral arterial disease] 03-20-2022 Chronic Residual codes; unclassified (13 sources) Hypersomnia; Translations: [Hypersomnia, unspecified] 10-30-2022 Chronic Residual codes; unclassified (2 sources) Hypersomnia, unspecified; Translations: [Hypersomnia, unspecified] 10-30-2022 Chronic Residual codes; unclassified (1 source) Asymptomatic menopausal state; Translations: [Asymptomatic menopausal state] Onset: 5 Episodic Viral infection (20 sources) Postherpetic neuralgia; Translations: [...] Test Name Value Interpretation Reference Range Facility Hepatitis Panel Acuteon 11-0 COMMENT Comment Normal . [facility] Comment on above: Result Comment: Not infected with HCV unless early or acute infection is suspected (which may be delayed in an immunocompromised individual), or other evidence exists to indicate HCV infection. Performed at: [facility] [id number] Business Specialist: Grant Baires PhD, Phone: [phone] Performed By: #### L 100.0100, L501.9520, L502.0250, L503.0106, L500.4050, L503.6030, L503.6550 #### [facility] [address] [place], [address] HEP B CORE,IgM Negative Normal Negative [facility] Comment on above: Performed By: #### L 100.0100, L501.9520, L502.0250, L503.0106, L500.4050, L503.6030, L503.6550 #### [facility] [address] [place], [address] HEP B SURF AG Negative Normal Negative [facility] Comment on above: Performed By: #### L 100.0100, L501.9520, L502.0250, L503.0106, L500.4050, L503.6030, L503.6550 #### [facility] [address] [place], [address] HEP C VIRUS AB Non-Reactive Normal Non Reactive [facility] Comment on above: Performed By: #### L 100.0100, L501.9520, L502.0250, L503.0106, L500.4050, L503.6030, L503.6550 #### [facility] [address] [place], [address] HEPATITIS A-IgM Negative Normal Negative [facility] Comment on above: Result Comment: A ne gative anti-HAV IgM result suggests no recent or current HAV infection. Performed By: #### L 100.0100, L501.9520, L502.0250, L503.0106, L500.4050, L503.6030, L503.6550 #### [facility] [address] [place], [place], [id number] Absolute lymphocyte countOrd ered By: Lesly Hardwick on 12-15-2024 Lymphocytes Auto (Unsp spec) [#/Vol] 0.69 10*3/uL Low 0.83-4.51 [facility] [facility] Absolute neutrophil countOrd ered By: Lesly Hardwick on 12-15-2024 Neutrophils (Bld) [#/Vol] 4.1 10*3/uL 2.0-7.7 [facility] Anion gap in Serum or Plasma Ordered By: Lesly Hardwick on 12-15-2024 Anion gap [Moles/Vol] 14 mmol/L 5-15 [facility] Automated lymphocyte count a s percentage of total leukocytesOrdered By: Lesly Hardwick on 12-15-2024 Lymphocytes/100 WBC Auto (Unsp spec) 13.0 % Low 19-41 [facility] BUN/creatinine ratioOrdered By: Leslyjesus Hardwick on 12-15-2024 Urea nitrogen/Creatinine [Mass ratio] 13.3 mg/mg 10-20 [facility] Basophil percentageOrdered B y: Lesly Hardwick on 12-15-2024 Basophils/100 WBC (Bld) 0.9 % 0-1 [facility] Bilirubin, totalOrdered By: Lesly Hardwick on 12-15-2024 Bilirubin [Mass/Vol] 0.97 mg/dL 0.00-1.30 [facility] CBC W/Diff, Automatedon Absolute Lymph 0.69 X10 3/uL Low 0.83-4.51 [facility] Comment on above: Performed By: #### L 100.0100, L501.9520, L502.0250, L503.0106, L500.4050, L503.6030, L503.6550 #### [facility] Laboratory [address] [place], [address] Absolute Neut 4.1 X10 3/uL Normal 2.0-7.7 [facility] Comment on above: Performed By: #### L 100.0100, L501.9520, L502.0250, L503.0106, L500.4050, L503.6030, L503.6550 #### [facility] [address] [place], [address] Basophils/100 WBC (Bld) 0.9 % Normal 0-1 [facility] Comment on above: Performed By: #### L 100.0100, L501.9520, L502.0250, L503.0106, L500.4050, L503.6030, L503.6550 #### [facility] [address] [place], [address] Eosinophils/100 WBC (Bld) 2.3 % Normal 0-5 [facility] Comment on above: Performed By: #### L 100.0100, L501.9520, L502.0250, L503.0106, L500.4050, L503.6030, L503.6550 #### [facility] [address] [place], [address] Erythrocyte distribution width (RBC) [Ratio] 17.3 % High 11.6-14.6 [facility] Comment on above: Performed By: #### L 100.0100, L501.9520, L502.0250, L503.0106, L500.4050, L503.6030, L503.6550 #### [facility] [address] [place], [address] Hematocrit (Bld) [Volume fraction] 31.3 % Low 37-47 [facility] Comment on above: Performed By: #### L 100.0100, L501.9520, L502.0250, L503.0106, L500.4050, L503.6030, L503.6550 #### [facility] [address] [place], [address] Hemoglobin (Bld) [Mass/Vol] 9.8 g/dL Low 12.0-15.0 [facility] Comment on above: Performed By: #### L 100.0100, L501.9520, L502.0250, L503.0106, L500.4050, L503.6030, L503.6550 #### [facility] [address] [place], [address] IG% 0.200 Normal 0.0-0.9 [facility] Comment on above: Result Comment: IG% - Immature Granulocytes (promyelocytes, myelocytes and metamyelocytes) > 1% indicates that a LEFT SHIFT is Present. Performed By: #### L 100.0100, L501.9520, L502.0250, L503.0106, L500.4050, L503.6030, L503.6550 #### [facility] [address] [place], [address] Lymphocytes/100 WBC (Bld) 13.0 % Low 19-41 [facility] Comment on above: Performed By: #### L 100.0100, L501.9520, L502.0250, L503.0106, L500.4050, L503.6030, L503.6550 #### [facility] [address] [place], [address] MCH (RBC) [Entitic mass] 25.3 pg Low 27.0-32.0 [facility] Comment on above: Performed By: #### L 100.0100, L501.9520, L502.0250, L503.0106, L500.4050, L503.6030, L503.6550 #### [facility] [address] [place], [address] MCHC (RBC) [Mass/Vol] 31.3 g/dL Low 32-36 [facility] Comment on above: Performed By: #### L 100.0100, L501.9520, L502.0250, L503.0106, L500.4050, L503.6030, L503.6550 #### [facility] [address] [place], [address] MCV (RBC) [Entitic vol] 80.9 fL Low 81-99 [facility] Comment on above: Performed By: #### L 100.0100, L501.9520, L502.0250, L503.0106, L500.4050, L503.6030, L503.6550 #### [facility] [address] [place], [address] Monocytes/100 WBC (Bld) 6.0 % Normal 0-10 [facility] Comment on above: Performed By: #### L 100.0100, L501.9520, L502.0250, L503.0106, L500.4050, L503.6030, L503.6550 #### [facility] [address] [place], [address] Neutrophils/100 WBC (Bld) 77.6 % High 47-70 [facility] Comment on above: Performed By: #### L 100.0100, L501.9520, L502.0250, L503.0106, L500.4050, L503.6030, L503.6550 #### [facility] [address] [place], [address] Nucleated RBC (Bld) [#/Vol] 0 10*3/uL Normal 0-5 [facility] Comment on above: Performed By: #### L 100.0100, L501.9520, L502.0250, L503.0106, L500.4050, L503.6030, L503.6550 #### [facility] [address] [place], [address] Platelet mean volume (Bld) [Entitic vol] 11.5 fL Normal 6.2-12.0 [facility] Comment on above: Performed By: #### L 100.0100, L501.9520, L502.0250, L503.0106, L500.4050, L503.6030, L503.6550 #### [facility] [address] [place], [address] Platelets (Bld) [#/Vol] 231 10*3/uL Normal 150-450 [facility] Comment on above: Performed By: #### L 100.0100, L501.9520, L502.0250, L503.0106, L500.4050, L503.6030, L503.6550 #### [facility] [address] [place], [address] RBC (Bld) [#/Vol] 3.87 10*6/uL Low 4.2-5.4 [facility] Comment on above: Performed By: #### L 100.0100, L501.9520, L502.0250, L503.0106, L500.4050, L503.6030, L503.6550 #### [facility] [address] [place], [address] RDW SD 50.8 fl High 35.1-43.9 [facility] Comment on above: Performed By: #### L 100.0100, L501.9520, L502.0250, L503.0106, L500.4050, L503.6030, L503.6550 #### [facility] [address] [place], [address] WBC (Bld) [#/Vol] 5.3 10*3/uL Normal 4.4-11.0 [facility] Comment on above: Performed By: #### L 100.0100, L501.9520, L502.0250, L503.0106, L500.4050, L503.6030, L503.6550 #### [facility] [address] [place], [address] Carbon dioxide, total [Moles /volume] in Central venous bloodOrdered By: Lesly Hardwick on 12-15-2024 CO2 [Moles/Vol] 21.2 mmol/L 21.0-32.0 [facility] Chloride assayOrdered By: Alejandra Hardwick on 12-15-2024 Chloride [Moles/Vol] 108 mmol/L 98-108 [facility] Comprehensive Metabolic Prof ilon 12-15-2024 Albumin [Mass/Vol] 3.4 g/dL Normal 3.4-4.8 [facility] Comment on above: Performed By: #### L 100.0100, L501.9520, L502.0250, L503.0106, L500.4050, L503.6030, L503.6550 #### [facility] [address] [place], [address] Albumin/Globulin [Mass ratio] 0.8 {ratio} Low 0.9-2.4 [facility] Comment on above: Performed By: #### L 100.0100, L501.9520, L502.0250, L503.0106, L500.4050, L503.6030, L503.6550 #### [facility] [address] [place], [address] ALK PHOS 101 U/L Normal 35-104 [facility] Comment on above: Performed By: #### L 100.0100, L501.9520, L502.0250, L503.0106, L500.4050, L503.6030, L503.6550 #### [facility] [address] [place], [address] ALT [Catalytic activity/Vol] 13 U/L Normal <=34 [facility] Comment on above: Performed By: #### L 100.0100, L501.9520, L502.0250, L503.0106, L500.4050, L503.6030, L503.6550 #### [facility] [address] [place], [address] AST [Catalytic activity/Vol] 32 U/L Normal <=31 [facility] Comment on above: Performed By: #### L 100.0100, L501.9520, L502.0250, L503.0106, L500.4050, L503.6030, L503.6550 #### [facility] [address] [place], [address] Bilirubin [Mass/Vol] 0.97 mg/dL Normal 0.00-1.30 [facility] Comment on above: Performed By: #### L 100.0100, L501.9520, L502.0250, L503.0106, L500.4050, L503.6030, L503.6550 #### [facility] [address] [place], [address] BUN/CRE 13.3 RATIO Normal 10-20 [facility] Comment on above: Performed By: #### L 100.0100, L501.9520, L502.0250, L503.0106, L500.4050, L503.6030, L503.6550 #### [facility] [address] [place], [address] Calcium [Mass/Vol] 8.9 mg/dL Normal 7.6-11.0 [facility] Comment on above: Performed By: #### L 100.0100, L501.9520, L502.0250, L503.0106, L500.4050, L503.6030, L503.6550 #### [facility] [address] [place], [address] Chloride [Moles/Vol] 108 mmol/L Normal 98-108 [facility] Comment on above: Performed By: #### L 100.0100, L501.9520, L502.0250, L503.0106, L500.4050, L503.6030, L503.6550 #### [facility] [address] [place], [address] CO2 [Moles/Vol] 21.2 mmol/L Normal 21.0-32.0 [facility] Comment on above: Performed By: #### L 100.0100, L501.9520, L502.0250, L503.0106, L500.4050, L503.6030, L503.6550 #### [facility] [address] [place], [address] Creatinine [Mass/Vol] 1.84 mg/dL High 0.70-1.20 [facility] Comment on above: Performed By: #### L 100.0100, L501.9520, L502.0250, L503.0106, L500.4050, L503.6030, L503.6550 #### [facility] [address] [place], [address] GAP 14 Normal 5-15 [facility] Comment on above: Performed By: #### L 100.0100, L501.9520, L502.0250, L503.0106, L500.4050, L503.6030, L503.6550 #### [facility] [address] [place], [address] GFR/1.73 sq M.predicted among non-blacks MDRD (S/P/Bld) [Vol rate/Area] 27 mL/min/{1.73_m2} Low >60 [facility] Comment on above: Result Comment: mL/m in/1.73m2 CKD-EPI Creatinine Equation (2020) Performed By: #### L 100.0100, L501.9520, L502.0250, L503.0106, L500.4050, L503.6030, L503.6550 #### [facility] [address] [place], [address] Globulin (S) [Mass/Vol] 4.2 g/dL Normal 2.2-4.2 [facility] Comment on above: Performed By: #### L 100.0100, L501.9520, L502.0250, L503.0106, L500.4050, L503.6030, L503.6550 #### [facility] [address] [place], [address] Glucose [Mass/Vol] 151 mg/dL High 70-99 [facility] Comment on above: Performed By: #### L 100.0100, L501.9520, L502.0250, L503.0106, L500.4050, L503.6030, L503.6550 #### [facility] [address] [place], [address] Potassium [Moles/Vol] 4.8 mmol/L Normal 3.3-5.1 [facility] Comment on above: Performed By: #### L 100.0100, L501.9520, L502.0250, L503.0106, L500.4050, L503.6030, L503.6550 #### [facility] [address] [place], [address] Sodium [Moles/Vol] 143 mmol/L Normal 133-145 [facility] Comment on above: Performed By: #### L 100.0100, L501.9520, L502.0250, L503.0106, L500.4050, L503.6030, L503.6550 #### [facility] [address] [place], [address] T PROT 7.7 g/dL Normal 5.9-8.4 [facility] Comment on above: Performed By: #### L 100.0100, L501.9520, L502.0250, L503.0106, L500.4050, L503.6030, L503.6550 #### [facility] [address] [place], [address] Urea nitrogen [Mass/Vol] 25 mg/dL High 4-19 [facility] Comment on above: Performed By: #### L 100.0100, L501.9520, L502.0250, L503.0106, L500.4050, L503.6030, L503.6550 #### [facility] [address] [place], [address] Cytology, Body Fluid / CSFon 12-15-2024 CYTOLOGY,BF/CSF SEE PATHOLOGY REPORT Normal [facility] Comment on above: Order Comment: Reaso n for Exam: ascites fluid PARACENTESIS Result Comment: Spec imen submitted to Anatomical Pathology Department for testing. Performed By: #### L 350.1000 #### [facility] [address] [place], [address] Eosinophil percentageOrdered By: Lesly Hardwick on 12-15-2024 Eosinophils/100 WBC (Bld) 2.3 % 0-5 [facility] Erythrocyte distribution wid th ratioOrdered By: Lesly Hardwick on 12-15-2024 Erythrocyte distribution width (RBC) [Ratio] 17.3 % High 11.6-14.6 [facility] Erythrocyte distribution wid th standard deviationOrdered By: Lesly Hardwick on 12-15-2024 Erythrocyte distribution width (RBC) [Ratio] 50.8 fl High 35.1-43.9 [facility] Gastroenterology Visit Repor ton 12-15-2024 Gastroenterology Visit Report [facility] [address] [place] [address] OFFICE VISIT Date of Service: 12/15/24 MR#: [id number] Acct: [id number] Name: SANDIE ANGELES DAWSON Rep #: [id number] : 1945 Provider: SUZETTE Carlson Age/Sex: 79/F [place] [facility] [place] Status: Signed Intake Vital Signs 11/28/24 12:59 12/11/24 15:05 12/15/24 08:38 Height 5 ft 1 in 5 ft 1 in 5 ft 1 in Weight: 149 lb BMI 28.1 BP 155/75 H Respiration 18 Pulse 90 Temp 97.9 F Temp Source Temporal Pulse Oximetry (%) 93 Oxygen Delivery Method room air Intake Visit Reasons: TEST ANEMIA DYSPHAGIA Chief Complaint: Cirrhosis Protective Signal Operator Required: No Accompanied by: Is patient in pain?: No Allergies Sulfa (Sulfonamide Antibiotics) Allergy (Unknown, Verified 12/15/24 08:32) Hives adhesive tape Adverse Reaction (Intermediate, Verified 12/15/24 08:32) Rash latex Adverse Reaction (Verified 12/15/24 08:32) skin reaction Medications ???Medication ???Instructions ???Recorded ???Confirmed ???Type atorvastatin 40 mg tablet 40 mg PO QHS #30 tabs 09/10/2108/03 Rx losartan 100 mg tablet 100 mg PO DAILY 05/07/22 12/15/24 History miscellaneous medical supply #2 ea 07/17/22 12/15/24 Rx ketoconazole 2 % shampoo 1 applic topical 3XW PRN PER 12/15/24 History metformin 500 mg tablet 500 mg PO BID diabetes 08/05/23 History amlodipine 10 mg tablet 10 mg PO DAILY 12/31/23 12/15/24 H istory insulin glargine 100 unit/mL (3 18 unit subcut BID dm 04/19/2408/03 History mL) subcutaneous pen (Lantus Solostar U-100 Insulin) aspirin 81 mg tablet,delayed 81 mg PO .QOD 10/21/24 12/15/24 Hi story release (Adult Low Dose Aspirin) omeprazole 40 mg capsule,delayed 40 mg PO BID #60 caps 11/02/2408/03 Rx release gabapentin 100 mg capsule 100 mg PO QODAY #45 caps 11/29/24 12/15/24 Rx carvedilol 6.25 mg tablet 6.25 mg PO BID #60 tabs 12/15/24 1 02/15/24 Rx furosemide 40 mg tablet (Lasix) 40 mg PO QAM #30 tabs 12/15/2408/03 Rx spironolactone 25 mg tablet 25 mg PO QDAY #30 tabs 12/15/24 Rx Have you fallen in the past year?: No PFSH Medical History Thyroid disease Post-menopausal Insulin dependent [...] Post-polio syndrome History of poliomyelitis HTN (hypertension) Surgical History History of esophagogastroduodenoscopy (EGD) Hx of colonoscopy Hx of right cataract extraction Hx of left cataract extraction Hx of lithotripsy Family History Father Diabetes [...] in: other frequency: 1-2 times per week 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 Normal [facility] Glomerular filtration rate ( GFR) estimation/1.73 sq m using serum, plasma, or whole bOrdered By: Lesly Hardwick on 12-15-2024 GFR/1.73 sq M.predicted among non-blacks MDRD (S/P/Bld) [Vol rate/Area] 27 mL/min/{1.73_m2} Low >60 [facility] Comment on above: mL/min/1.73m2 CKD-EP I Creatinine Equation (2020) Hematocrit Auto (Bld) [Volum e fraction]Ordered By: Lesly Hardwick on 12-15-2024 Hematocrit (Bld) [Volume fraction] 31.3 % Low 37-47 [facility] Hemoglobin measurementOrdere d By: Lesly Hardwick on 12-15-2024 Hemoglobin (Bld) [Mass/Vol] 9.8 g/dL Low 12.0-15.0 [facility] Immature granulocytes/100 WB C Auto (Bld)Ordered By: Lesly Hardwick on 12-15-2024 Immature granulocytes/100 WBC (Bld) 0.200 % 0.0-0.9 [facility] Comment on above: IG% - Immature Granu locytes (promyelocytes, myelocytes and metamyelocytes) > 1% indicates that a LEFT SHIFT is Present. International normalized rat io (INR) calculationOrdered By: Lesly Hardwick on 12-15-2024 INR Coag (Bld) [Relative time] 1.3 {INR} [facility] Laboratory - Chemistry and C hemistry - challengeOrdered By: Lesly Hardwick on 12-15-2024 AST [Catalytic activity/Vol] 32 U/L <32 [facility] MCV (mean corpuscular volume ) determinationOrdered By: Lesly Hardwick on 12-15-2024 MCV (RBC) [Entitic vol] 80.9 fL Low 81-99 [facility] Mean corpuscular hemoglobin (MCH) determinationOrdered By: Lesly Hardwick on 12-15-2024 MCH (RBC) [Entitic mass] 25.3 pg Low 27.0-32.0 [facility] Mean corpuscular hemoglobin concentration (MCHC) determinationOrdered By: Lesly Hardwick on 12-15-2024 MCHC (RBC) [Mass/Vol] 31.3 g/dL Low 32-36 [facility] Mean platelet volume determi nationOrdered By: Lesly Hardwick on 12-15-2024 Platelet mean volume (Bld) [Entitic vol] 11.5 fL 6.2-12.0 [facility] Monocyte percentageOrdered B y: Lesly Hardwick on 12-15-2024 Monocytes/100 WBC (Bld) 6.0 % 0-10 [facility] Neutrophil percentageOrdered By: Lesly Hardwick on 12-15-2024 Neutrophils/100 WBC (Bld) 77.6 % High 47-70 [facility] Nucleated red blood cell per centageOrdered By: Lesly Hardwick on 12-15-2024 Nucleated RBC/100 WBC (Bld) [Ratio] 0 % 0-5 [facility] Paracentesis with USon 12-15 Paracentesis with US [facility] [address] [place] [address] Paracentesis with US MR#: [id number] Acct: [id number] Name: SANDIE ANGELES DAWSON Rep #: [id number] : 1945 F 79 From: [place] PCP: Dr. Desiree Tapia MD Status: REG CLI Study: Paracentesis with US Date of Exam: 12/15/24 Exam# [id number] Ordering Dr: Moy Ramos DO PROCEDURE: PARACENTESIS WITH US 12/15/2024 REASON FOR EXAM: CIRRHOSIS. Ascites. TECHNIQUE: PARACENTESIS WITH US FINDINGS: Initial images demonstrate a [id number] Procedure: Following informed consent, an using standard sterile technique, an ultrasound-guided right abdominal diagnostic and therapeutic paracentesis was performed. 2% lidocaine local anesthesia was followed by placement of a 5 Samoan Yueh catheter into the pleural fluid collection. A total of a proximally 3420 mL clear yellow fluid was successfully removed, a portion sent to the laboratory for evaluation. No complication was encountered, and the patient left the department in good condition without significant complaint. US/Paracentesis with US IMPRESSION: Successful ultrasound-guided therapeutic and diagnostic paracentesis. Laboratory results pending. Reading Location: [place] [address] CC: Dr. Desiree Tapia MD; Moy Ramos, Criminal Judge: Signed Normal [facility] Platelet countOrdered By: Alejandra Hardwick on 12-15-2024 Platelets (Bld) [#/Vol] 231 10*3/uL 150-450 [facility] Potassium measurement (mass/ volume)Ordered By: Lesly Hardwick on 12-15-2024 Potassium (Unsp spec) [Mass/Vol] 4.8 mmol/L 3.3-5.1 [facility] Prothrombin Time w/INRon INR Coag (PPP) [Relative time] 1.3 {INR} Normal [facility] Comment on above: Performed By: #### L 100.0100, L501.9520, L502.0250, L503.0106, L500.4050, L503.6030, L503.6550 #### [facility] [address] [place], [address] PT Coag (PPP) [Time] 15.9 s High 11.7-14.9 [facility] Comment on above: Performed By: #### L 100.0100, L501.9520, L502.0250, L503.0106, L500.4050, L503.6030, L503.6550 #### [facility] [address] [place], [address] Prothrombin timeOrdered By: Lesly Hardwick on 12-15-2024 PT Coag (PPP) [Time] 15.9 s High 11.7-14.9 [facility] RBC Auto (Bld) [#/Vol]Ordere d By: Lesly Hardwick on 12-15-2024 RBC (Bld) [#/Vol] 3.87 10*6/uL Low 4.2-5.4 [facility] Serum creatinine measurement (mass/volume)Ordered By: Lesly Hardwick on 12-15-2024 Creatinine [Mass/Vol] 1.84 mg/dL High 0.70-1.20 [facility] Serum globulin measurementOr dered By: Lesly Hardwick on 12-15-2024 Globulin (S) [Mass/Vol] 4.2 g/dL 2.2-4.2 [facility] Serum glucose measurement (m ass/volume)Ordered By: Lesly Hardwick on 12-15-2024 Glucose [Mass/Vol] 151 mg/dL High 70-99 [facility] Serum or plasma alanine mao otransferase (ALT) measurementOrdered By: Lesly Hardwick on 12-15-2024 ALT [Catalytic activity/Vol] 13 U/L <35 [facility] Serum or plasma albumin nick urement (mass/volume)Ordered By: Lesly Hardwick on 12-15-2024 Albumin [Mass/Vol] 3.4 g/dL 3.4-4.8 [facility] Serum or plasma albumin/glob ulin mass ratioOrdered By: Lesly Hardwick on 12-15-2024 Albumin/Globulin [Mass ratio] 0.8 {ratio} Low 0.9-2.4 [facility] Serum or plasma alkaline kathleen sphatase measurementOrdered By: Lesly Hardwick on 12-15-2024 ALP [Catalytic activity/Vol] 101 U/L 35-104 [facility] Serum or plasma calcium nick urement (mass/volume)Ordered By: Lesly Hardwick on 12-15-2024 Calcium [Mass/Vol] 8.9 mg/dL 7.6-11.0 [facility] Serum or plasma urea nitroge n measurement (mass/volume)Ordered By: Lesly Hardwick on 12-15-2024 Urea nitrogen [Mass/Vol] 25 mg/dL High 4-19 [facility] [facility] Sodium levelOrdered By: Laurie lee Mulu on 12-15-2024 Sodium [Moles/Vol] 143 mmol/L 133-145 [facility] Special Stain Group IIon Special Stain Group II -------- Patient Age/Sex Location Account Attending Physician -------- SANDIE ANGELES 79/F [id number] Moy Ramos DO -------- Specimen: [id number] Received: 12/15/24 Status: EDSI Babcock Num: [id number] Spec Type: Fluid Subm Dr: DO ASMITA Tellez OPERATION: Paracentesis fluid, right lower quadrant PRE-OP DIAGNOSIS: Ascites TISSUE SUBMITTED: A- Paracentesis fluid for cytology -------- DIAGNOSIS CYTOLOGY A. Ascitic fluid, paracentesis (cytospin, cellblock): - No malignant cells identified. CYTOLOGY STUDY Slides are reviewed. CYTOLOGY GROSS A. Received is 120 ml of cloudy-yellow fluid labeled with the patient's name and and designated per the requisition as Paracentesis fluid. Submitted for cytology and cell block preparation. Mr 12/15/2024 CPT: 55017,10390 Signed (signature on file) Dr. Lou Hull MD 12/20/24 1205 -------- Normal [facility] Comment on above: Performed By: #### L 100.0100, L501.9520, L502.0250, L503.0106, L500.4050, L503.6030, L503.6550 #### [facility] [address] [place], [address] Total proteinOrdered By: Josephine Hardwick on 12-15-2024 Protein [Mass/Vol] 7.7 g/dL 5.9-8.4 [facility] White blood cell (WBC) count Ordered By: Lesly Hardwick on 12-15-2024 WBC (Bld) [#/Vol] 5.3 10*3/uL 4.4-11.0 [facility] Abdomen/Pelvis W IV Cont ONL Yon 12-11-2024 Abdomen/Pelvis W IV Cont ONLY [facility] [address] [place] [address] Abdomen/Pelvis W IV Cont ONLY MR#: [id number] Acct: [id number] Name: SANDIE ANGELES Rep #: [id number] : 1945 F 79 From: Silvestre Segura MD PCP: Dr. Desiree Tapia MD Status: REG ER Study: Abdomen/Pelvis W IV Cont ONLY Date of Exam: Exam# [id number] Ordering Dr: Zion Colindres MD PROCEDURE: ABDOMEN/PELVIS W IV CONT ONLY 12/11/2024 REASON FOR EXAM: PAIN, DISTENTION, NEUTROPENIA TECHNIQUE: Procedure Code: CTABDPELIV Modality: CT Procedure: ABDOMEN/PELVIS W IV CONT ONLY Coronal and Sagittal reconstruction series were provided. CONTRAST: Isovue 370 VOLUME: 100 mL One or more dose reduction techniques were used (e.g., Automated exposure control, adjustment of the mA and/or kV according to patient size, use of iterative reconstruction technique. RADIATION DOSE SUMMARY: CTDlvol: 16.2 mGy DLP: 878 mGycm COMPARISON: Abdominal ultrasound 11/25/2024 FINDINGS: Lung bases: Small left pleural effusion. Mitral annular and coronary artery calcifications. Liver: Nodular contour and hypoattenuating, without discrete lesion. Gallbladder: Mildly hydropic. Cholelithiasis, without significant wall thickening. Spleen: Normal size. Pancreas: Unremarkable Adrenals: Left adrenal nodule measuring 1.7 cm and 60 Hounsfield units. Kidneys: No hydronephrosis or stone. Mild wall enhancement of the renal pelvises. Bladder: Unremarkable Reproductive Organs: Calcified leiomyomas near the fundus. Bowel: Colonic diverticulosis. Mild diffuse colonic wall thickening, without significant inflammatory stranding. Appendix: Not well-visualized. Lymph nodes: No suspicious lymph node enlargement. Vasculature: Diffuse atherosclerotic calcifications. Peritoneum / Retroperitoneum: Moderate to large volume of ascites. Bones: Degenerative changes of the spine. CT/Abdomen/Pelvis W IV Cont ONLY IMPRESSION: 1. Cirrhosis with [id number]-[id number] volume of ascites. 2. Mild diffuse colonic wall thickening could be the result of colitis or portal colopathy. Additionally, there is colonic diverticulosis. 3. Mild wall enhancement of the renal pelvises, as can be seen with pyelitis/urinary tract infection. Correlate with urinalysis. 4. Small left pleural effusion. 5. Left adrenal nodule measuring 1.7 cm. Recommend nonemergent adrenal CT per ACR white paper guidelines. 6. Cholelithiasis. Reading Location: [id number] CC: Dr. Desiree Tapia MD; Dr. Zion Colindres MD Criminal Judge: Signed Normal [facility] Absolute lymphocyte countOrd ered By: Zion Colindres on 12-11-2024 Lymphocytes Auto (Unsp spec) [#/Vol] 0.56 10*3/uL Low 0.83-4.51 [facility] Absolute neutrophil countOrd ered By: Ziontonya Colindres on 12-11-2024 Neutrophils (Bld) [#/Vol] 2.7 10*3/uL 2.0-7.7 [facility] Anion gap in Serum or Plasma Ordered By: Ziontonya Colindres on 12-11-2024 Anion gap [Moles/Vol] 12 mmol/L 5-15 [facility] Automated lymphocyte count a s percentage of total leukocytesOrdered By: Ziontonya Colindres on 12-11-2024 Lymphocytes/100 WBC Auto (Unsp spec) 15.4 % Low 19-41 [facility] BUN/creatinine ratioOrdered By: Ziontonya Colindres on 12-11-2024 Urea nitrogen/Creatinine [Mass ratio] 11.2 mg/mg 10-20 [facility] Basophil percentageOrdered B y: Ziontonya Colindres on 12-11-2024 Basophils/100 WBC (Bld) 0.8 % 0-1 [facility] Bilirubin, totalOrdered By: Ziontonya Colindres on 12-11-2024 Bilirubin [Mass/Vol] 0.96 mg/dL 0.00-1.30 [facility] CBC W/Diff, Automatedon Absolute Lymph 0.56 X10 3/uL Low 0.83-4.51 [facility] Comment on above: Performed By: #### L 100.0100 #### [facility] [address] [place] [address]. [place], [place], [id number] Absolute Neut 2.7 X10 3/uL Normal 2.0-7.7 [facility] Comment on above: Performed By: #### L 100.0100 #### [facility] [address] [place], [address] Basophils/100 WBC (Bld) 0.8 % Normal 0-1 [facility] Comment on above: Performed By: #### L 100.0100 #### [facility] [address] [place], [address] Eosinophils/100 WBC (Bld) 1.6 % Normal 0-5 [facility] Comment on above: Performed By: #### L 100.0100 #### [facility] [address] [place], [address] Erythrocyte distribution width (RBC) [Ratio] 17.1 % High 11.6-14.6 [facility] Comment on above: Performed By: #### L 100.0100 #### [facility] [address] [place], [address] Hematocrit (Bld) [Volume fraction] 28.5 % Low 37-47 [facility] Comment on above: Performed By: #### L 100.0100 #### [facility] [address] [place], [address] Hemoglobin (Bld) [Mass/Vol] 8.9 g/dL Low 12.0-15.0 [facility] Comment on above: Performed By: #### L 100.0100 #### [facility] [address] [place], [address] IG% 0.300 Normal 0.0-0.9 [facility] Comment on above: Result Comment: IG% - Immature Granulocytes (promyelocytes, myelocytes and metamyelocytes) > 1% indicates that a LEFT SHIFT is Present. Performed By: #### L 100.0100 #### [facility] [address] [place], [address] Lymphocytes/100 WBC (Bld) 15.4 % Low 19-41 [facility] Comment on above: Performed By: #### L 100.0100 #### [facility] [address] [place], [address] MCH (RBC) [Entitic mass] 25.1 pg Low 27.0-32.0 [facility] Comment on above: Performed By: #### L 100.0100 #### [facility] [address] [place], [address] MCHC (RBC) [Mass/Vol] 31.2 g/dL Low 32-36 [facility] Comment on above: Performed By: #### L 100.0100 #### [facility] [address] [place], [address] MCV (RBC) [Entitic vol] 80.3 fL Low 81-99 [facility] Comment on above: Performed By: #### L 100.0100 #### [facility] [address] [place], [address] Monocytes/100 WBC (Bld) 7.7 % Normal 0-10 [facility] Comment on above: Performed By: #### L 100.0100 #### [facility] [address] [place], [address] Neutrophils/100 WBC (Bld) 74.2 % High 47-70 [facility] Comment on above: Performed By: #### L 100.0100 #### [facility] [address] [place], [address] Nucleated RBC (Bld) [#/Vol] 0 10*3/uL Normal 0-5 [facility] Comment on above: Performed By: #### L 100.0100 #### [facility] [address] [place], [address] Platelet mean volume (Bld) [Entitic vol] 11.1 fL Normal 6.2-12.0 [facility] Comment on above: Performed By: #### L 100.0100 #### [facility] [address] [place], [address] Platelets (Bld) [#/Vol] 164 10*3/uL Normal 150-450 [facility] Comment on above: Performed By: #### L 100.0100 #### [facility] [address] [place], [address] RBC (Bld) [#/Vol] 3.55 10*6/uL Low 4.2-5.4 [facility] Comment on above: Performed By: #### L 100.0100 #### [facility] [address] [place], [address] RDW SD 49.5 fl High 35.1-43.9 [facility] Comment on above: Performed By: #### L 100.0100 #### [facility] [address] [place], [address] WBC (Bld) [#/Vol] 3.6 10*3/uL Low 4.4-11.0 [facility] Comment on above: Performed By: #### L 100.0100 #### [facility] [address] [place], [address] Absolute Lymph 0.63 X10 3/uL Low 0.83-4.51 [facility] Comment on above: Performed By: #### L 100.0100, L501.9520, L502.0250, L503.0106, L500.4050, L503.6030, L503.6550 #### [facility] [address] [place], [address] Absolute Neut 3.3 X10 3/uL Normal 2.0-7.7 [facility] Comment on above: Performed By: #### L 100.0100, L501.9520, L502.0250, L503.0106, L500.4050, L503.6030, L503.6550 #### [facility] [address] [place], [address] Basophils/100 WBC (Bld) 1.2 % High 0-1 [facility] Comment on above: Performed By: #### L 100.0100, L501.9520, L502.0250, L503.0106, L500.4050, L503.6030, L503.6550 #### [facility] [address] [place], [address] Eosinophils/100 WBC (Bld) 1.6 % Normal 0-5 [facility] Comment on above: Performed By: #### L 100.0100, L501.9520, L502.0250, L503.0106, L500.4050, L503.6030, L503.6550 #### [facility] [address] [place], [address] Erythrocyte distribution width (RBC) [Ratio] 16.9 % High 11.6-14.6 [facility] Comment on above: Performed By: #### L 100.0100, L501.9520, L502.0250, L503.0106, L500.4050, L503.6030, L503.6550 #### [facility] [address] [place], [address] Hematocrit (Bld) [Volume fraction] 31.6 % Low 37-47 [facility] Comment on above: Performed By: #### L 100.0100, L501.9520, L502.0250, L503.0106, L500.4050, L503.6030, L503.6550 #### [facility] [address] [place], [address] Hemoglobin (Bld) [Mass/Vol] 9.7 g/dL Low 12.0-15.0 [facility] Comment on above: Performed By: #### L 100.0100, L501.9520, L502.0250, L503.0106, L500.4050, L503.6030, L503.6550 #### [facility] [address] [place], [address] IG% 0.500 Normal 0.0-0.9 [facility] Comment on above: Result Comment: IG% - Immature Granulocytes (promyelocytes, myelocytes and metamyelocytes) > 1% indicates that a LEFT SHIFT is Present. Performed By: #### L 100.0100, L501.9520, L502.0250, L503.0106, L500.4050, L503.6030, L503.6550 #### [facility] [address] [place], [address] Lymphocytes/100 WBC (Bld) 14.5 % Low 19-41 [facility] Comment on above: Performed By: #### L 100.0100, L501.9520, L502.0250, L503.0106, L500.4050, L503.6030, L503.6550 #### [facility] [address] [place], [address] MCH (RBC) [Entitic mass] 24.6 pg Low 27.0-32.0 [facility] Comment on above: Performed By: #### L 100.0100, L501.9520, L502.0250, L503.0106, L500.4050, L503.6030, L503.6550 #### [facility] [address] [place], [address] MCHC (RBC) [Mass/Vol] 30.7 g/dL Low 32-36 [facility] Comment on above: Performed By: #### L 100.0100, L501.9520, L502.0250, L503.0106, L500.4050, L503.6030, L503.6550 #### [facility] [address] [place], [address] MCV (RBC) [Entitic vol] 80.2 fL Low 81-99 [facility] Comment on above: Performed By: #### L 100.0100, L501.9520, L502.0250, L503.0106, L500.4050, L503.6030, L503.6550 #### [facility] [address] [place], [address] Monocytes/100 WBC (Bld) 7.1 % Normal 0-10 [facility] Comment on above: Performed By: #### L 100.0100, L501.9520, L502.0250, L503.0106, L500.4050, L503.6030, L503.6550 #### [facility] [address] [place], [address] Neutrophils/100 WBC (Bld) 75.1 % High 47-70 [facility] Comment on above: Performed By: #### L 100.0100, L501.9520, L502.0250, L503.0106, L500.4050, L503.6030, L503.6550 #### [facility] [address] [place], [address] Nucleated RBC (Bld) [#/Vol] 0 10*3/uL Normal 0-5 [facility] Comment on above: Performed By: #### L 100.0100, L501.9520, L502.0250, L503.0106, L500.4050, L503.6030, L503.6550 #### [facility] [address] [place], [address] Platelet mean volume (Bld) [Entitic vol] 11.1 fL Normal 6.2-12.0 [facility] Comment on above: Performed By: #### L 100.0100, L501.9520, L502.0250, L503.0106, L500.4050, L503.6030, L503.6550 #### [facility] [address] [place], [address] Platelets (Bld) [#/Vol] 207 10*3/uL Normal 150-450 [facility] Comment on above: Performed By: #### L 100.0100, L501.9520, L502.0250, L503.0106, L500.4050, L503.6030, L503.6550 #### [facility] [address] [place], [address] RBC (Bld) [#/Vol] 3.94 10*6/uL Low 4.2-5.4 [facility] Comment on above: Performed By: #### L 100.0100, L501.9520, L502.0250, L503.0106, L500.4050, L503.6030, L503.6550 #### [facility] [address] [place], [address] RDW SD 49.3 fl High 35.1-43.9 [facility] Comment on above: Performed By: #### L 100.0100, L501.9520, L502.0250, L503.0106, L500.4050, L503.6030, L503.6550 #### [facility] [address] [place], [address] WBC (Bld) [#/Vol] 4.3 10*3/uL Low 4.4-11.0 [facility] Comment on above: Performed By: #### L 100.0100, L501.9520, L502.0250, L503.0106, L500.4050, L503.6030, L503.6550 #### [facility] [address] [place], [address] Carbon dioxide, total [Moles /volume] in Central venous bloodOrdered By: Zion Colindres on 12-11-2024 CO2 [Moles/Vol] 22.2 mmol/L 21.0-32.0 [facility] Chloride assayOrdered By: Halima Colindres on 12-11-2024 Chloride [Moles/Vol] 105 mmol/L 98-108 [facility] Comprehensive Metabolic Prof ilon 12-11-2024 Albumin [Mass/Vol] 3.5 g/dL Normal 3.4-4.8 [facility] Comment on above: Performed By: #### L 100.0100, L501.9520, L502.0250, L503.0106, L500.4050, L503.6030, L503.6550 #### [facility] [address] [place], [place], [id number] (491) Albumin/Globulin [Mass ratio] 0.8 {ratio} Low 0.9-2.4 [facility] Comment on above: Performed By: #### L 100.0100, L501.9520, L502.0250, L503.0106, L500.4050, L503.6030, L503.6550 #### [facility] [address] [place], [place], [id number] (311) ALK PHOS 109 U/L High 35-104 [facility] Comment on above: Performed By: #### L 100.0100, L501.9520, L502.0250, L503.0106, L500.4050, L503.6030, L503.6550 #### [facility] [address] [place], [address] ALT [Catalytic activity/Vol] 17 U/L Normal <=34 [facility] Comment on above: Performed By: #### L 100.0100, L501.9520, L502.0250, L503.0106, L500.4050, L503.6030, L503.6550 #### [facility] [address] [place], [address] AST [Catalytic activity/Vol] 38 U/L High <=31 [facility] Comment on above: Performed By: #### L 100.0100, L501.9520, L502.0250, L503.0106, L500.4050, L503.6030, L503.6550 #### [facility] [address] [place], [address] Bilirubin [Mass/Vol] 0.96 mg/dL Normal 0.00-1.30 [facility] Comment on above: Performed By: #### L 100.0100, L501.9520, L502.0250, L503.0106, L500.4050, L503.6030, L503.6550 #### [facility] [address] [place], [address] BUN/CRE 11.2 RATIO Normal 10-20 [facility] Comment on above: Performed By: #### L 100.0100, L501.9520, L502.0250, L503.0106, L500.4050, L503.6030, L503.6550 #### [facility] [address] [place], [address] Calcium [Mass/Vol] 9.1 mg/dL Normal 7.6-11.0 [facility] Comment on above: Performed By: #### L 100.0100, L501.9520, L502.0250, L503.0106, L500.4050, L503.6030, L503.6550 #### [facility] [address] [place], [address] Chloride [Moles/Vol] 105 mmol/L Normal 98-108 [facility] Comment on above: Performed By: #### L 100.0100, L501.9520, L502.0250, L503.0106, L500.4050, L503.6030, L503.6550 #### [facility] [address] [place], [address] CO2 [Moles/Vol] 22.2 mmol/L Normal 21.0-32.0 [facility] Comment on above: Performed By: #### L 100.0100, L501.9520, L502.0250, L503.0106, L500.4050, L503.6030, L503.6550 #### [facility] [address] [place], [address] Creatinine [Mass/Vol] 1.38 mg/dL High 0.70-1.20 [facility] Comment on above: Performed By: #### L 100.0100, L501.9520, L502.0250, L503.0106, L500.4050, L503.6030, L503.6550 #### [facility] [address] [place], [address] GAP 12 Normal 5-15 [facility] Comment on above: Performed By: #### L 100.0100, L501.9520, L502.0250, L503.0106, L500.4050, L503.6030, L503.6550 #### [facility] [address] [place], [address] GFR/1.73 sq M.predicted among non-blacks MDRD (S/P/Bld) [Vol rate/Area] 38 mL/min/{1.73_m2} Low >60 [facility] Comment on above: Result Comment: mL/m in/1.73m2 CKD-EPI Creatinine Equation (2020) Performed By: #### L 100.0100, L501.9520, L502.0250, L503.0106, L500.4050, L503.6030, L503.6550 #### [facility] [address] [place], [address] Globulin (S) [Mass/Vol] 4.2 g/dL Normal 2.2-4.2 [facility] Comment on above: Performed By: #### L 100.0100, L501.9520, L502.0250, L503.0106, L500.4050, L503.6030, L503.6550 #### [facility] [address] [place], [address] Glucose [Mass/Vol] 183 mg/dL High 70-99 [facility] Comment on above: Performed By: #### L 100.0100, L501.9520, L502.0250, L503.0106, L500.4050, L503.6030, L503.6550 #### [facility] [address] [place], [address] Potassium [Moles/Vol] 4.2 mmol/L Normal 3.3-5.1 [facility] Comment on above: Performed By: #### L 100.0100, L501.9520, L502.0250, L503.0106, L500.4050, L503.6030, L503.6550 #### [facility] [address] [place], [address] Sodium [Moles/Vol] 140 mmol/L Normal 133-145 [facility] Comment on above: Performed By: #### L 100.0100, L501.9520, L502.0250, L503.0106, L500.4050, L503.6030, L503.6550 #### [facility] [address] [place], [address] T PROT 7.7 g/dL Normal 5.9-8.4 [facility] Comment on above: Performed By: #### L 100.0100, L501.9520, L502.0250, L503.0106, L500.4050, L503.6030, L503.6550 #### [facility] [address] [place], [address] Urea nitrogen [Mass/Vol] 16 mg/dL Normal 4-19 [facility] Comment on above: Performed By: #### L 100.0100, L501.9520, L502.0250, L503.0106, L500.4050, L503.6030, L503.6550 #### [facility] [address] [place], [address] Emergency Department Summary on 12-11-2024 Emergency Department Summary [facility] Medical Records Department [address] [place] [address] Emergency Department Summary 12/11/24 MR#: [id number] Acct: [id number] Name: SANDIE ANGELES Rep #: [id number] : 1945 79 From: Zion Colindres MD PCP: Dr. Desiree Tapia MD Status:REG ER Location: ED HPI History of Present Illness Chief Complaint: Abd Pain Detail of Chief Complaint: Abdominal distention, discomfort, anorexia Informant: patient and spouse/S.O. Onset/Context/Timing Onset: Days Context: Gradual Onset Timing: Continuous Quality: Sense of fullness and distention Location: Entire abdomen Current Severity: Moderate Maximum Severity: Moderate Worsened by: Attempt to eat or drink anything Relieved by: Nothing Associated Symptoms Associated Symptoms: Nausea Narrative Narrative: Patient is an 79-year-old woman. She has recently been seen by Dr. Ramos. She has fatty liver infiltrates and reported fibrosis of the liver. She presents because of bloating, distention, nausea without vomiting or constipation. She denies diarrhea. She denies change in color, consistency or caliber of her stool. She states she is still fluctuating. She states she had an ultrasound recently that revealed gallstones. She denies intolerance to any particular food. She states she can eat more than 1 bite of anything. Yesterday she had 1 bite of her sandwich. Today she had 6 ounces of grapefruit juice. She does endorse weight loss of 3 pounds over the past week. She states that her had to purchase her new bottoms because of the waistband causing her irritation and pain inferior to the umbilicus. She denies dysuria, frequency, urgency or hematuria. She denies history of bowel obstruction. Past surgical history tubal ligation at the age of 26. Prior similar symptoms: No Recent Illness/Hospitalization: Yes (Recent EGD and office visit with Dr. Ramos.) [facility] Medical History Thyroid disease Post-menopausal Insulin [...] PO DAILY 12/31/23 10/25/24 0 7:30 History insulin glargine 100 unit/mL (3 18 unit subcut BID dm 04/19/24 Unk nown History mL) subcutaneous pen (Lantus Solostar U-100 Insulin) aspirin 81 mg tablet,delayed 81 mg PO .QOD 10/21/24 Unknown His tory release (Adult Low Dose Aspirin) ferrous fumarate 324 mg (106 mg 324 mg PO DAILY 10/21/24 Unknown H istory iron) tablet omeprazole 40 mg capsule,delayed 40 mg PO BID #60 caps 11/02/24 Unk nown Rx release gabapentin 100 mg capsule 100 mg PO QODAY #45 caps 11/29/24 Unknown Rx Allergy/AdvReac Type Severity Reaction Status Date / Time Sulfa (Sulfonamide Allergy Unknown Hives Verified 12/11/24 15:05 Antibiotics) adhesive tape AdvReac Intermediate Rash Verified 12/11/24 15:05 latex AdvReac skin Verified 12/11/24 15:05 reaction Family History Father Diabetes Hypertension High cholesterol Angina at rest Heart disease Kidney disease Mother Bowel disease Grandmother CVA (cerebral vascular accident) Aunt CVA (cerebral vascular accident) Surgical History History of esophagogastroduodenoscopy (EGD) Hx of colonoscopy Hx of right cataract extraction Hx of left cataract extraction Hx of lithotripsy Social History household members: spouse current occupational status: retired [employer] (more content not included)... Normal [facility] Eosinophil percentageOrdered By: Zion Colindres on 12-11-2024 Eosinophils/100 WBC (Bld) 1.6 % 0-5 [facility] Erythrocyte distribution wid th ratioOrdered By: Zion Colindres on 12-11-2024 Erythrocyte distribution width (RBC) [Ratio] 17.1 % High 11.6-14.6 [facility] Erythrocyte distribution wid th standard deviationOrdered By: Zion Colindres on 12-11-2024 Erythrocyte distribution width (RBC) [Ratio] 49.5 fl High 35.1-43.9 [facility] Glomerular filtration rate ( GFR) estimation/1.73 sq m using serum, plasma, or whole bOrdered By: Zion Colindres on 12-11-2024 GFR/1.73 sq M.predicted among non-blacks MDRD (S/P/Bld) [Vol rate/Area] 38 mL/min/{1.73_m2} Low >60 [facility] Comment on above: mL/min/1.73m2 CKD-EP I Creatinine Equation (2020) Hematocrit Auto (Bld) [Volum e fraction]Ordered By: Zion Colindres on 12-11-2024 Hematocrit (Bld) [Volume fraction] 28.5 % Low 37-47 [facility] Hemoglobin measurementOrdere d By: Zion Colindres on 12-11-2024 Hemoglobin (Bld) [Mass/Vol] 8.9 g/dL Low 12.0-15.0 [facility] Immature granulocytes/100 WB C Auto (Bld)Ordered By: Zion Colindres on 12-11-2024 Immature granulocytes/100 WBC (Bld) 0.300 % 0.0-0.9 [facility] Comment on above: IG% - Immature Granu locytes (promyelocytes, myelocytes and metamyelocytes) > 1% indicates that a LEFT SHIFT is Present. Laboratory - Chemistry and C hemistry - challengeOrdered By: Zion Colindres on 12-11-2024 AST [Catalytic activity/Vol] 38 U/L High <32 [facility] Lipaseon 12-11-2024 Lipase [Catalytic activity/Vol] 64 U/L Normal 13-75 [facility] Comment on above: Result Comment: Shawn zhong note: LIPASE revised reference range effective 22. New Lipase methodology. Expected to produce lower values than the previous assay method. NEW Reference Range: 13 - 75 U/L Performed By: #### L 100.0100, L501.9520, L502.0250, L503.0106, L500.4050, L503.6030, L503.6550 #### [facility] Laboratory [address] [place] [address], [id number] Lipase measurementOrdered By : Zion Colindres on 12-11-2024 Lipase [Catalytic activity/Vol] 64 U/L 13-75 [facility] Comment on above: Please note:LIPASE r evised reference range effective 22. New Lipase methodology. Expected to produce lower values than the previous assay method. NEW Reference Range: 13 - 75 U/L MCV (mean corpuscular volume ) determinationOrdered By: Zion Colindres on 12-11-2024 MCV (RBC) [Entitic vol] 80.3 fL Low 81-99 [facility] Mean corpuscular hemoglobin (MCH) determinationOrdered By: Zion Colindres on 12-11-2024 MCH (RBC) [Entitic mass] 25.1 pg Low 27.0-32.0 [facility] Mean corpuscular hemoglobin concentration (MCHC) determinationOrdered By: Zion Colindres on 12-11-2024 MCHC (RBC) [Mass/Vol] 31.2 g/dL Low 32-36 [facility] Mean platelet volume determi nationOrdered By: Zion Colindres on 12-11-2024 Platelet mean volume (Bld) [Entitic vol] 11.1 fL 6.2-12.0 [facility] Monocyte percentageOrdered B y: Zion Colindres on 12-11-2024 Monocytes/100 WBC (Bld) 7.7 % 0-10 [facility] Neutrophil percentageOrdered By: Zion Colindres on 12-11-2024 Neutrophils/100 WBC (Bld) 74.2 % High 47-70 [facility] Nucleated red blood cell per centageOrdered By: Zion Colindres on 12-11-2024 Nucleated RBC/100 WBC (Bld) [Ratio] 0 % 0-5 [facility] Platelet countOrdered By: Halima Colindres on 12-11-2024 Platelets (Bld) [#/Vol] 164 10*3/uL 150-450 [facility] Potassium measurement (mass/ volume)Ordered By: Zion Colindres on 12-11-2024 Potassium (Unsp spec) [Mass/Vol] 4.2 mmol/L 3.3-5.1 [facility] RBC Auto (Bld) [#/Vol]Ordere d By: Zion Colindres on 12-11-2024 RBC (Bld) [#/Vol] 3.55 10*6/uL Low 4.2-5.4 [facility] Serum creatinine measurement (mass/volume)Ordered By: Zion Colindres on 12-11-2024 Creatinine [Mass/Vol] 1.38 mg/dL High 0.70-1.20 [facility] Serum globulin measurementOr dered By: Zion Colindres on 12-11-2024 Globulin (S) [Mass/Vol] 4.2 g/dL 2.2-4.2 [facility] Serum glucose measurement (m ass/volume)Ordered By: Zion Colindres on 12-11-2024 Glucose [Mass/Vol] 183 mg/dL High 70-99 [facility] Serum or plasma alanine mao otransferase (ALT) measurementOrdered By: Zion Colindres on 12-11-2024 ALT [Catalytic activity/Vol] 17 U/L <35 [facility] Serum or plasma albumin nick urement (mass/volume)Ordered By: Zion Colindres on 12-11-2024 Albumin [Mass/Vol] 3.5 g/dL 3.4-4.8 [facility] Serum or plasma albumin/glob ulin mass ratioOrdered By: Ziontonya Colindres on 12-11-2024 Albumin/Globulin [Mass ratio] 0.8 {ratio} Low 0.9-2.4 [facility] Serum or plasma alkaline kathleen sphatase measurementOrdered By: Ziontonya Colindres on 12-11-2024 ALP [Catalytic activity/Vol] 109 U/L High 35-104 [facility] Serum or plasma calcium nick urement (mass/volume)Ordered By: Zion Colindres on 12-11-2024 Calcium [Mass/Vol] 9.1 mg/dL 7.6-11.0 [facility] Serum or plasma urea nitroge n measurement (mass/volume)Ordered By: Zion Colindres on 12-11-2024 Urea nitrogen [Mass/Vol] 16 mg/dL 4-19 [facility] Sodium levelOrdered By: Zion Colindres on 12-11-2024 Sodium [Moles/Vol] 140 mmol/L 133-145 [facility] Total proteinOrdered By: Zion Colindres on 12-11-2024 Protein [Mass/Vol] 7.7 g/dL 5.9-8.4 [facility] White blood cell (WBC) count Ordered By: Zion Colindres on 12-11-2024 WBC (Bld) [#/Vol] 3.6 10*3/uL Low 4.4-11.0 [facility] Anion gap in Serum or Plasma Ordered By: Surendra Hidalgo on 11-28-2024 Anion gap [Moles/Vol] 17 mmol/L High 5-15 [facility] Automated blood erythrocyte countOrdered By: Surendra Hidalgo on 11-28-2024 RBC (Bld) [#/Vol] 3.88 10*6/uL Low 4.2-5.4 [facility] Comment on above: Performed By: #### L 100.0100, L501.9520, L502.0250, L503.0106, L500.4050, L503.6030, L503.6550 #### [facility] [address] [place], [place], [id number] Automated blood hematocrit ( percentage)Ordered By: Surendra Hidalgo on 11-28-2024 Hematocrit (Bld) [Volume fraction] 31.5 % Low 37-47 [facility] Comment on above: Performed By: #### L 100.0100, L501.9520, L502.0250, L503.0106, L500.4050, L503.6030, L503.6550 #### [facility] [address] [place], [place], [id number] BUN/creatinine ratioOrdered By: Surendra Hidalgo on 11-28-2024 Urea nitrogen/Creatinine [Mass ratio] 12.3 mg/mg 11-28 [facility] Bilirubin, totalOrdered By: Surendra Hidalgo on 11-28-2024 Bilirubin [Mass/Vol] 0.96 mg/dL Normal 0.00-1.30 [facility] Comment on above: Performed By: #### L 100.0100, L501.9520, L502.0250, L503.0106, L500.4050, L503.6030, L503.6550 #### [facility] [address] [place], [place], [id number] CBC-Complete Blood Cnt No Di ffon 11-28-2024 RDW SD 49.5 fl High 35.1-43.9 [facility] Comment on above: Performed By: #### L 100.0100, L501.9520, L502.0250, L503.0106, L500.4050, L503.6030, L503.6550 #### [facility] [address] [place], [place], [id number] Carbon dioxide, total [Moles /volume] in Central venous bloodOrdered By: Surendra Hidalgo on 11-28-2024 CO2 [Moles/Vol] 20.0 mmol/L Low 21.0-32.0 [facility] Comment on above: Performed By: #### L 100.0100, L501.9520, L502.0250, L503.0106, L500.4050, L503.6030, L503.6550 #### [facility] [address] [place], [place], [phone] Chloride assayOrdered By: Ra ju Hidalgo on 11-28-2024 Chloride [Moles/Vol] 105 mmol/L Normal 98-108 [facility] Comment on above: Performed By: #### L 100.0100, L501.9520, L502.0250, L503.0106, L500.4050, L503.6030, L503.6550 #### [facility] [address] [place], [place], [phone] Comprehensive Metabolic Prof ilon 11-28-2024 ALK PHOS 105 U/L High 35-104 [facility] Comment on above: Performed By: #### L 100.0100, L501.9520, L502.0250, L503.0106, L500.4050, L503.6030, L503.6550 #### [facility] [address] [place], [address] BUN/CRE 12.3 RATIO Normal 11-28 [facility] Comment on above: Performed By: #### L 100.0100, L501.9520, L502.0250, L503.0106, L500.4050, L503.6030, L503.6550 #### [facility] [address] [place], [address] GAP 17 High 5-15 [facility] Comment on above: Performed By: #### L 100.0100, L501.9520, L502.0250, L503.0106, L500.4050, L503.6030, L503.6550 #### [facility] [address] [place], [address] Potassium [Moles/Vol] 4.1 mmol/L Normal 3.3-5.1 [facility] Comment on above: Performed By: #### L 100.0100, L501.9520, L502.0250, L503.0106, L500.4050, L503.6030, L503.6550 #### [facility] [address] [place], [address] T PROT 7.8 g/dL Normal 5.9-8.4 [facility] Comment on above: Performed By: #### L 100.0100, L501.9520, L502.0250, L503.0106, L500.4050, L503.6030, L503.6550 #### [facility] [address] [place], [place], [phone] Comprehensive Metabolic Prof ilOrdered By: Surendra Hidalgo on 11-28-2024 AST [Catalytic activity/Vol] 30 U/L Normal <=31 [facility] Comment on above: Performed By: #### L 100.0100, L501.9520, L502.0250, L503.0106, L500.4050, L503.6030, L503.6550 #### [facility] [address] [place], [address] Erythrocyte distribution wid th ratioOrdered By: Surendra Hidalgo on 11-28-2024 Erythrocyte distribution width (RBC) [Ratio] 16.8 % High 11.6-14.6 [facility] Comment on above: Performed By: #### L 100.0100, L501.9520, L502.0250, L503.0106, L500.4050, L503.6030, L503.6550 #### [facility] [address] [place], [address] Erythrocyte distribution wid th standard deviationOrdered By: Surendra Hidalgo on 11-28-2024 Erythrocyte distribution width (RBC) [Ratio] 49.5 fl High 35.1-43.9 [facility] Glomerular filtration rate ( GFR) estimation/1.73 sq m using serum, plasma, or whole bOrdered By: Surendra Hidalgo on 11-28-2024 GFR/1.73 sq M.predicted among non-blacks MDRD (S/P/Bld) [Vol rate/Area] 38 mL/min/{1.73_m2} Low >60 [facility] Comment on above: mL/min/1.73m2 CKD-EP I Creatinine Equation (2020) Result Comment: mL/m in/1.73m2 CKD-EPI Creatinine Equation (2020) Performed By: #### L 100.0100, L501.9520, L502.0250, L503.0106, L500.4050, L503.6030, L503.6550 #### [facility] [address] [place], [address] Hemoglobin measurementOrdere d By: Surendra Hidalgo on 11-28-2024 Hemoglobin (Bld) [Mass/Vol] 9.5 g/dL Low 12.0-15.0 [facility] Comment on above: Performed By: #### L 100.0100, L501.9520, L502.0250, L503.0106, L500.4050, L503.6030, L503.6550 #### [facility] [address] [place], [address] MCV (mean corpuscular volume ) determinationOrdered By: Surendra Hidalgo on 11-28-2024 MCV (RBC) [Entitic vol] 81.2 fL Normal 81-99 [facility] Comment on above: Performed By: #### L 100.0100, L501.9520, L502.0250, L503.0106, L500.4050, L503.6030, L503.6550 #### [facility] [address] [place], [address] Mean corpuscular hemoglobin (MCH) determinationOrdered By: Surendra Hidalgo on 11-28-2024 MCH (RBC) [Entitic mass] 24.5 pg Low 27.0-32.0 [facility] Comment on above: Performed By: #### L 100.0100, L501.9520, L502.0250, L503.0106, L500.4050, L503.6030, L503.6550 #### [facility] [address] [place], [address] Mean corpuscular hemoglobin concentration (MCHC) determinationOrdered By: Surendra Hidalgo on 11-28-2024 MCHC (RBC) [Mass/Vol] 30.2 g/dL Low 32-36 [facility] Comment on above: Performed By: #### L 100.0100, L501.9520, L502.0250, L503.0106, L500.4050, L503.6030, L503.6550 #### [facility] [address] [place], [address] Mean platelet volume determi nationOrdered By: Surendra Hidalgo on 11-28-2024 Platelet mean volume (Bld) [Entitic vol] 12.5 fL High 6.2-12.0 [facility] Comment on above: Performed By: #### L 100.0100, L501.9520, L502.0250, L503.0106, L500.4050, L503.6030, L503.6550 #### [facility] [address] [place], [address] Neurology Visit Reporton Neurology Visit Report [facility] [address] [facility], [address] [place] [address] OFFICE VISIT Date of Service: 11/28/24 MR#: [id number] Acct: [id number] Name: SANDIE ANGELES Rep #: [id number] : 1945 Provider: Dr. Surendra vergara MD Age/Sex: 79/F [place] [facility] [place]: Signed HPI HPI Chief Complaint: Fatigue, [...] hematocrit, iron and ferritin (March 2024) were normal however more recently, she is again anemic and her iron level is low. She has not had any symptoms suggestive [...] did not affect the eye directly. She saw an drill press tender. She was treated with a course of prednisone and valacyclovir. 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 She began to have worsening of her bilateral lower extremity weakness around 2020, and prior to her stroke was using a cane. Following her stroke, she used a rollator or furniture support to ambulate. [...] and subsides when she is at rest; the pain in these areas has diminished and is no longer significant. She has been having some numbness in the toes. She takes acetaminophen and giyw-szc-gauycct ibuprofen for her pain in the feet and ankles. She has bilateral heel contractures (right greater than left) and elevated foot arches. In the past, she had some low back pain that radiated to the hips however the pain in these regions diminished. She has had some swallowing difficulty with solid foods. A modified barium swallow revealed esophageal dysmotility and normal oropharyngeal function. She is experiencing abdominal pain. She has peripheral vascular disease. She was [...] infection was low however a podiatry referral was made however the patient did not see a funeral arrangement director. Right ankle x-rays revealed mild soft tissue swelling and demineralized bones. Right foot x-rays revealed mildly sclerotic appearance of the first metatarsal. Her pain in the feet and ankles has subsided. She has had fatigue. She takes levothyroxine [...] now her pattern may be consistent with postherpetic neuralgia. Pain in this region has diminished following initiation of gabapentin. She sees a painter aircraft, Dr. Escobar, and has received right infrascapular region injec (more content not included)... Normal [facility] Platelet countOrdered By: Ra ju Hidalgo on 11-28-2024 Platelets (Bld) [#/Vol] 250 10*3/uL Normal 150-450 [facility] Comment on above: Performed By: #### L 100.0100, L501.9520, L502.0250, L503.0106, L500.4050, L503.6030, L503.6550 #### [facility] [address] [place], [place], [phone] (666) Potassium measurement (mass/ volume)Ordered By: Surendra Hidalgo on 11-28-2024 Potassium (Unsp spec) [Mass/Vol] 4.1 mmol/L 3.3-5.1 [facility] Serum creatinine measurement (mass/volume)Ordered By: Surendra Hidalgo on 11-28-2024 Creatinine [Mass/Vol] 1.40 mg/dL High 0.70-1.20 [facility] Comment on above: Performed By: #### L 100.0100, L501.9520, L502.0250, L503.0106, L500.4050, L503.6030, L503.6550 #### [facility] [address] [place], [place], [phone] Serum globulin measurementOr dered By: Surendra Hidalgo on 11-28-2024 Globulin (S) [Mass/Vol] 4.2 g/dL Normal 2.2-4.2 [facility] Comment on above: Performed By: #### L 100.0100, L501.9520, L502.0250, L503.0106, L500.4050, L503.6030, L503.6550 #### [facility] [address] [place], [address] Serum glucose measurement (m ass/volume)Ordered By: Surendra Hidalgo on 11-28-2024 Glucose [Mass/Vol] 200 mg/dL High 70-99 [facility] Comment on above: Performed By: #### L 100.0100, L501.9520, L502.0250, L503.0106, L500.4050, L503.6030, L503.6550 #### [facility] [address] [place], [address] Serum or plasma alanine mao otransferase (ALT) measurementOrdered By: Surendra Hidalgo on 11-28-2024 ALT [Catalytic activity/Vol] 13 U/L Normal <=34 [facility] Comment on above: Performed By: #### L 100.0100, L501.9520, L502.0250, L503.0106, L500.4050, L503.6030, L503.6550 #### [facility] [address] [place], [address] Serum or plasma albumin nick urement (mass/volume)Ordered By: Surendra Hidalgo on 11-28-2024 Albumin [Mass/Vol] 3.6 g/dL Normal 3.4-4.8 [facility] Comment on above: Performed By: #### L 100.0100, L501.9520, L502.0250, L503.0106, L500.4050, L503.6030, L503.6550 #### [facility] [address] [place], [address] Serum or plasma albumin/glob ulin mass ratioOrdered By: Surendra Hidalgo on 11-28-2024 Albumin/Globulin [Mass ratio] 0.8 {ratio} Low 0.9-2.4 [facility] Comment on above: Performed By: #### L 100.0100, L501.9520, L502.0250, L503.0106, L500.4050, L503.6030, L503.6550 #### [facility] [address] [place], [address] Serum or plasma alkaline kathleen sphatase measurementOrdered By: Surendra Hidalgo on 11-28-2024 ALP [Catalytic activity/Vol] 105 U/L High 35-104 [facility] Serum or plasma calcium nick urement (mass/volume)Ordered By: Surendra Hidalgo on 11-28-2024 Calcium [Mass/Vol] 8.8 mg/dL Normal 7.6-11.0 [facility] Comment on above: Performed By: #### L 100.0100, L501.9520, L502.0250, L503.0106, L500.4050, L503.6030, L503.6550 #### [facility] [address] [place], [address] Serum or plasma urea nitroge n measurement (mass/volume)Ordered By: Surendra Hidalgo on 11-28-2024 Urea nitrogen [Mass/Vol] 17 mg/dL Normal 4-19 [facility] Comment on above: Performed By: #### L 100.0100, L501.9520, L502.0250, L503.0106, L500.4050, L503.6030, L503.6550 #### [facility] [address] [place], [address] Sodium levelOrdered By: Katiana Hidalgo on 11-28-2024 Sodium [Moles/Vol] 142 mmol/L Normal 133-145 [facility] Comment on above: Performed By: #### L 100.0100, L501.9520, L502.0250, L503.0106, L500.4050, L503.6030, L503.6550 #### [facility] [address] [facility] [place], [address] Total proteinOrdered By: Gt Hidalgo on 11-28-2024 Protein [Mass/Vol] 7.8 g/dL 5.9-8.4 [facility] White blood cell (WBC) count Ordered By: Surendra Hidalgo on 11-28-2024 WBC (Bld) [#/Vol] 7.3 10*3/uL Normal 4.4-11.0 [facility] Comment on above: Performed By: #### L 100.0100, L501.9520, L502.0250, L503.0106, L500.4050, L503.6030, L503.6550 #### [facility] [address] [place], [address] ABD Limited w/ Elastographyo n 11-25-2024 ABD Limited w/ Elastography [facility] [address] [place] [address] ABD Limited w/ Elastography MR#: [id number] Acct: [id number] Name: SANDIE ANGELES Rep #: [id number] : 1945 F 79 From: Nic cramer MD PCP: Dr. Desiree Tapia MD Status: REG CLI Study: ABD Limited w/ Elastography Date of Exam: 11/09 09/02 Exam# [id number] Ordering Dr: Moy Ramos DO PROCEDURE: ABD LIMITED W/ ELASTOGRAPHY REASON FOR EXAM: FATTY LIVER COMPARISON: Prior study dated April 08, 2022. TECHNIQUE: Procedure Code: [id number] Modality: US Procedure: ABD LIMITED W/ ELASTOGRAPHY Right upper quadrant abdominal ultrasound. Elena [facility] [facility] shear wave elastography for non- invasive assessment of liver tissue stiffness. Elena EPIQ Elite. FINDINGS: LIVER: Size: Unremarkable Length: 14.3 cm Echotexture: Diffusely echogenic suggesting fatty infiltration Contour: Normal Lesions: None identified Elastography: EQI Med: 27.1 kPa EQI Med Nazario: 3 m/s IQR/Med: 14.1 %* GALLBLADDER: Solitary gallstone measuring 7 mm x 8 mm x 7 mm. Complex cystic areas seen along the posterior wall of the gallbladder. This may represent tumefactive sludge. COMMON BILE DUCT: Dilated measuring up to 7.2 mm. . PANCREAS: Normal Visualized portions of the right kidney are unremarkable. Small amount of fluid in the right upper quadrant. US/ABD Limited w/ Elastography IMPRESSION: SEVERE HEPATIC FIBROSIS / CIRRHOSIS Fatty infiltration of the liver. Gallstone and complex cystic area along the posterior wall of the gallbladder. Reference Values: SRU <1.37 m/s (5.7kPa): No to mild fibrosis 1.37 m/s - 2.2 m/s: Moderate to severe fibrosis >2.2 m/s (15kPa): Significant fibrosis / cirrhosis METAVIR Score F2 or higher: 1.34 m/s (5.7kPa) F3 or higher: 1.55 m/s (7.3kPa) F4: 1.80 m/s (10kPa) * If the IQR/Med is >30%, the variance in the measurements is a large and the accuracy of the measurement may be in question. Reading Location: [place] [address] CC: Dr. Desiree Tapia MD; Moy Ramos DO Criminal Judge: Signed Normal [facility] Carotid Duplex Ultrasoundon 11-22-2024 Carotid Duplex Ultrasound [facility] [address] [place] [address] Carotid Duplex Ultrasound 11/22/24 1317 MR#: [id number] Acct: [id number] Name: SANDIE ANGELES DAWSON Rep #: [id number] : 1945 79 From: Arya Argueta MD Attending Dr: SUZETTE Cavazos Status: REG CLI Ordering Dr: Haley Menard Date: 11/22/24 Location: [facility] Sex: F C Admitted: Reason For [...] the left vertebral artery. Procedure Carotid Duplex 56739. This is a Carotid Duplex examination using [...] Dictated: 11/22/24 1317 Date Transcribed: 11/23/24 1011 Criminal Judge: Signed [facility] Office Visit Reporton 2024 Office Visit Report [facility] [address] [place] [address] OFFICE VISIT Date of Service: 11/03/24 MR#: [id number] Acct: [id number] Patient: SANDIE ANGELES Rep #: [id number] : 1945 Provider: Moy Ramos DO Age/Sex: 79/F [place] [facility] [place] Status: Signed Intake Vital Signs 10/25/24 12:27 Height 5 ft 1 in Intake Visit Reasons: Cap Endo Chief Complaint: Anemia Allergies Sulfa (Sulfonamide Antibiotics) Allergy (Unknown, Verified 10/25/24 12:26) Hives adhesive tape Adverse Reaction (Intermediate, Verified 10/25/24 12:26) Rash latex Adverse Reaction (Verified 10/25/24 12:26) skin reaction Have you fallen in the past year?: No Office Procedures Procedure Administration Route: PO Administration Location: [facility] Dispensed Units: 1 Capsule Lot Number: [id number] Expiration Date: 08/18/25 Capsule ID Number: [id number] Consent Form Signed: Yes Comments: Tolerated well. Reviewed instructions. Clinical Quality Measures Falls Risk Screening/Assistive Devices Have you fallen in the past year?: No 11/03/24 1036 Date Moy Pablo Signature: Date (if applicable) CC: Normal [facility] EGD Reporton 10-25-2024 EGD Report [facility] Medical Records Department [address] [place] [address] EGD Report MR#: [id number] Acct: [id number] Name: SANDIE ANGELES Rep #: [id number] : 1945 79 From: Moy Ramos DO PCP: Dr. Desiree Tapia MD Status:[facility] Patient Name: Sandie Angeles Procedure Date: 10/25/2024 [...] present medications. Procedure Code(s): --- Professional --- 42033, Small intestinal endoscopy, enteroscopy beyond second portion of duodenum, not including ileum; with control of bleeding (eg, injection, bipolar cautery, unipolar cautery, laser, heater probe, stapler, plasma checker) CPT copyright 2021 [employer]. All rights reserved. The codes documented in this report are preliminary and upon flake miller wheat and oats review may be revised to meet current compliance requirements. Moy Ramos DO 10/25/2024 1:53:07 PM This report has been signed electronically. Number of Addenda: 0 Note Initiated On: 10/25/2024 1:23 PM 10/25/24 1353 Date Moy Ramos DO Cosignbilly Signature: Date (if indicated) CC: Dr. Desiree Tapia MD; Moy Ramos DO Date Dictated: 10/25/24 1323 Date Transcribed: Criminal Judge: PEDRO LUIS Signed [facility] MR/OPIvy 10-25-2024 MR/OP.[facility] Medical Records Department [address] [place] [address] Provation Physician Letter MR#: [id number] Acct: [id number] Name: SANDIE ANGELES Rep #: [id number] : 1945 79 From: Moy Ramos DO PCP: Dr. Desiree Tapia MD [place] [facility]/25/2024 Desiree Tapia [address] [place] [address] Re : Upper GI endoscopy procedure for [...] has been signed electronically. 10/25/24 1353 Date Moy Pablo Signature: Date (if indicated) CC: Dr. Desiree Tapia MD; Moy Ramos DO Date Dictated: 10/25/24 1323 Date Transcribed: Criminal Judge: RF Signed [facility] MR/POSTOP.Lissa 10-25-2024 MR/POSTOP.[facility] Medical Records Department [address] [place] [address] Anesthesia Postop Eval I 10/25/24 1352 MR#: [id number] Acct: [id number] Name: SANDIE ANGELES DAWSON Rep #: [id number] : 1945 79 From: Stanislav Altamirano PCP: Dr. Desiree Tapia MD Status:[facility] Y Race: C Location: [place] [address] Anesthesia: Postop Eval I Current Vital Signs [...] Postop Eval 1 completed: Yes 10/25/24 1353 Date Stanislav Chauhan Signature: Date CC: Signed Normal [facility] MR/[id number] 10-25-2024 MR/POSTOPAN2 [facility] Medical Records Department [address] [place] [address] Anesthesia Postop Eval II 10/25/24 1507 MR#: [id number] Acct: [id number] Name: SANDIE ANGELES DAWSON Rep #: [id number] : 1945 79 From: Margarita Gonzalez CRNA PCP: Dr. Desiree Tapia MD Status:[facility] Y Race: C Location: EN Anesthesia Postop [...] Anesthesia Complication: No 10/25/24 1508 Date Margarita Jonesignbilly Signature: Date CC: Signed Normal [facility] Absolute lymphocyte countOrd ered By: Lesly Hardwick on 10-21-2024 Lymphocytes Auto (Unsp spec) [#/Vol] 0.57 10*3/uL Low 0.83-4.51 [facility] Absolute neutrophil countOrd ered By: Lesly Hardwick on 10-21-2024 Neutrophils (Bld) [#/Vol] 3.1 10*3/uL 2.0-7.7 [facility] Anion gap in Serum or Plasma Ordered By: Lesly Hardwick on 10-21-2024 Anion gap [Moles/Vol] 15 mmol/L 5-15 [facility] Automated lymphocyte count a s percentage of total leukocytesOrdered By: Lesly Hardwick on 10-21-2024 Lymphocytes/100 WBC Auto (Unsp spec) 13.5 % Low 19-41 [facility] BUN/creatinine ratioOrdered By: Lesly Mulu on 10-21-2024 Urea nitrogen/Creatinine [Mass ratio] 15.6 mg/mg 10-20 [facility] Basophil percentageOrdered B y: Lesly Mulu on 10-21-2024 Basophils/100 WBC (Bld) 0.9 % 0-1 [facility] Bilirubin, totalOrdered By: Lesly Hardwick on 10-21-2024 Bilirubin [Mass/Vol] 0.58 mg/dL 0.00-1.30 [facility] CBC W/Diff, Automatedon 10-10-2024 Absolute Lymph 0.57 X10 3/uL Low 0.83-4.51 [facility] Comment on above: Performed By: #### L 100.0100, L501.9520, L502.0250, L503.0106, L500.4050, L503.6030, L503.6550 #### [facility] Laboratory [address] [place], [address] Absolute Neut 3.1 X10 3/uL Normal 2.0-7.7 [facility] Comment on above: Performed By: #### L 100.0100, L501.9520, L502.0250, L503.0106, L500.4050, L503.6030, L503.6550 #### [facility] [address] [place], [address] Basophils/100 WBC (Bld) 0.9 % Normal 0-1 [facility] Comment on above: Performed By: #### L 100.0100, L501.9520, L502.0250, L503.0106, L500.4050, L503.6030, L503.6550 #### [facility] [address] [place], [address] Eosinophils/100 WBC (Bld) 3.1 % Normal 0-5 [facility] Comment on above: Performed By: #### L 100.0100, L501.9520, L502.0250, L503.0106, L500.4050, L503.6030, L503.6550 #### [facility] [address] [place], [address] Erythrocyte distribution width (RBC) [Ratio] 17.2 % High 11.6-14.6 [facility] Comment on above: Performed By: #### L 100.0100, L501.9520, L502.0250, L503.0106, L500.4050, L503.6030, L503.6550 #### [facility] [address] [place], [address] Hematocrit (Bld) [Volume fraction] 26.7 % Low 37-47 [facility] Comment on above: Performed By: #### L 100.0100, L501.9520, L502.0250, L503.0106, L500.4050, L503.6030, L503.6550 #### [facility] [address] [place], [address] Hemoglobin (Bld) [Mass/Vol] 8.1 g/dL Low 12.0-15.0 [facility] Comment on above: Performed By: #### L 100.0100, L501.9520, L502.0250, L503.0106, L500.4050, L503.6030, L503.6550 #### [facility] [address] [place], [address] IG% 0.500 Normal 0.0-0.9 [facility] Comment on above: Result Comment: IG% - Immature Granulocytes (promyelocytes, myelocytes and metamyelocytes) > 1% indicates that a LEFT SHIFT is Present. Performed By: #### L 100.0100, L501.9520, L502.0250, L503.0106, L500.4050, L503.6030, L503.6550 #### [facility] [address] [place], [address] Lymphocytes/100 WBC (Bld) 13.5 % Low 19-41 [facility] Comment on above: Performed By: #### L 100.0100, L501.9520, L502.0250, L503.0106, L500.4050, L503.6030, L503.6550 #### [facility] [address] [place], [address] MCH (RBC) [Entitic mass] 25.4 pg Low 27.0-32.0 [facility] Comment on above: Performed By: #### L 100.0100, L501.9520, L502.0250, L503.0106, L500.4050, L503.6030, L503.6550 #### [facility] [address] [place], [address] MCHC (RBC) [Mass/Vol] 30.3 g/dL Low 32-36 [facility] Comment on above: Performed By: #### L 100.0100, L501.9520, L502.0250, L503.0106, L500.4050, L503.6030, L503.6550 #### [facility] [address] [place], [address] MCV (RBC) [Entitic vol] 83.7 fL Normal 81-99 [facility] Comment on above: Performed By: #### L 100.0100, L501.9520, L502.0250, L503.0106, L500.4050, L503.6030, L503.6550 #### [facility] [address] [place], [address] Monocytes/100 WBC (Bld) 7.8 % Normal 0-10 [facility] Comment on above: Performed By: #### L 100.0100, L501.9520, L502.0250, L503.0106, L500.4050, L503.6030, L503.6550 #### [facility] [address] [place], [address] Neutrophils/100 WBC (Bld) 74.2 % High 47-70 [facility] Comment on above: Performed By: #### L 100.0100, L501.9520, L502.0250, L503.0106, L500.4050, L503.6030, L503.6550 #### [facility] [address] [place], [address] Nucleated RBC (Bld) [#/Vol] 0 10*3/uL Normal 0-5 [facility] Comment on above: Performed By: #### L 100.0100, L501.9520, L502.0250, L503.0106, L500.4050, L503.6030, L503.6550 #### [facility] [address] [place], [address] Platelet mean volume (Bld) [Entitic vol] 11.1 fL Normal 6.2-12.0 [facility] Comment on above: Performed By: #### L 100.0100, L501.9520, L502.0250, L503.0106, L500.4050, L503.6030, L503.6550 #### [facility] [address] [place], [address] Platelets (Bld) [#/Vol] 164 10*3/uL Normal 150-450 [facility] Comment on above: Performed By: #### L 100.0100, L501.9520, L502.0250, L503.0106, L500.4050, L503.6030, L503.6550 #### [facility] [address] [place], [address] RBC (Bld) [#/Vol] 3.19 10*6/uL Low 4.2-5.4 [facility] Comment on above: Performed By: #### L 100.0100, L501.9520, L502.0250, L503.0106, L500.4050, L503.6030, L503.6550 #### [facility] [address] [place], [address] RDW SD 51.8 fl High 35.1-43.9 [facility] Comment on above: Performed By: #### L 100.0100, L501.9520, L502.0250, L503.0106, L500.4050, L503.6030, L503.6550 #### [facility] [address] [place], [address] WBC (Bld) [#/Vol] 4.2 10*3/uL Low 4.4-11.0 [facility] Comment on above: Performed By: #### L 100.0100, L501.9520, L502.0250, L503.0106, L500.4050, L503.6030, L503.6550 #### [facility] [address] [place], [address] Carbon dioxide, total [Moles /volume] in Central venous bloodOrdered By: Lesly Hardwick on 10-21-2024 CO2 [Moles/Vol] 18.5 mmol/L Low 21.0-32.0 [facility] Chloride assayOrdered By: Alejandra Hardwick on 10-21-2024 Chloride [Moles/Vol] 107 mmol/L 98-108 [facility] Comprehensive Metabolic Prof ilon 10-21-2024 Albumin [Mass/Vol] 3.7 g/dL Normal 3.4-4.8 [facility] Comment on above: Performed By: #### L 100.0100, L501.9520, L502.0250, L503.0106, L500.4050, L503.6030, L503.6550 #### [facility] [address] [place], [address] Albumin/Globulin [Mass ratio] 1.0 {ratio} Normal 0.9-2.4 [facility] Comment on above: Performed By: #### L 100.0100, L501.9520, L502.0250, L503.0106, L500.4050, L503.6030, L503.6550 #### [facility] [address] [place], [address] ALK PHOS 97 U/L Normal 35-104 [facility] Comment on above: Performed By: #### L 100.0100, L501.9520, L502.0250, L503.0106, L500.4050, L503.6030, L503.6550 #### [facility] [address] [place], [address] ALT [Catalytic activity/Vol] 12 U/L Normal <=34 [facility] Comment on above: Performed By: #### L 100.0100, L501.9520, L502.0250, L503.0106, L500.4050, L503.6030, L503.6550 #### [facility] [address] [place], [address] AST [Catalytic activity/Vol] 28 U/L Normal <=31 [facility] Comment on above: Performed By: #### L 100.0100, L501.9520, L502.0250, L503.0106, L500.4050, L503.6030, L503.6550 #### [facility] [address] [place], [address] Bilirubin [Mass/Vol] 0.58 mg/dL Normal 0.00-1.30 [facility] Comment on above: Performed By: #### L 100.0100, L501.9520, L502.0250, L503.0106, L500.4050, L503.6030, L503.6550 #### [facility] [address] [place], [address] BUN/CRE 15.6 RATIO Normal 10-20 [facility] Comment on above: Performed By: #### L 100.0100, L501.9520, L502.0250, L503.0106, L500.4050, L503.6030, L503.6550 #### [facility] [address] [place], [address] Calcium [Mass/Vol] 8.4 mg/dL Normal 7.6-11.0 [facility] Comment on above: Performed By: #### L 100.0100, L501.9520, L502.0250, L503.0106, L500.4050, L503.6030, L503.6550 #### [facility] [address] [place], [address] Chloride [Moles/Vol] 107 mmol/L Normal 98-108 [facility] Comment on above: Performed By: #### L 100.0100, L501.9520, L502.0250, L503.0106, L500.4050, L503.6030, L503.6550 #### [facility] [address] [place], [address] CO2 [Moles/Vol] 18.5 mmol/L Low 21.0-32.0 [facility] Comment on above: Performed By: #### L 100.0100, L501.9520, L502.0250, L503.0106, L500.4050, L503.6030, L503.6550 #### [facility] [address] [place], [address] Creatinine [Mass/Vol] 1.35 mg/dL High 0.70-1.20 [facility] Comment on above: Performed By: #### L 100.0100, L501.9520, L502.0250, L503.0106, L500.4050, L503.6030, L503.6550 #### [facility] [address] [place], [address] GAP 15 Normal 5-15 [facility] Comment on above: Performed By: #### L 100.0100, L501.9520, L502.0250, L503.0106, L500.4050, L503.6030, L503.6550 #### [facility] [address] [place], [address] GFR/1.73 sq M.predicted among non-blacks MDRD (S/P/Bld) [Vol rate/Area] 39 mL/min/{1.73_m2} Low >60 [facility] Comment on above: Result Comment: mL/m in/1.73m2 CKD-EPI Creatinine Equation (2020) Performed By: #### L 100.0100, L501.9520, L502.0250, L503.0106, L500.4050, L503.6030, L503.6550 #### [facility] [address] [place], [address] Globulin (S) [Mass/Vol] 3.6 g/dL Normal 2.2-4.2 [facility] Comment on above: Performed By: #### L 100.0100, L501.9520, L502.0250, L503.0106, L500.4050, L503.6030, L503.6550 #### [facility] [address] [place], [address] Glucose [Mass/Vol] 170 mg/dL High 70-99 [facility] Comment on above: Performed By: #### L 100.0100, L501.9520, L502.0250, L503.0106, L500.4050, L503.6030, L503.6550 #### [facility] [address] [place], [address] Potassium [Moles/Vol] 3.9 mmol/L Normal 3.3-5.1 [facility] Comment on above: Performed By: #### L 100.0100, L501.9520, L502.0250, L503.0106, L500.4050, L503.6030, L503.6550 #### [facility] [address] [place], [address] Sodium [Moles/Vol] 141 mmol/L Normal 133-145 [facility] Comment on above: Performed By: #### L 100.0100, L501.9520, L502.0250, L503.0106, L500.4050, L503.6030, L503.6550 #### [facility] [address] [place], [address] T PROT 7.3 g/dL Normal 5.9-8.4 [facility] Comment on above: Performed By: #### L 100.0100, L501.9520, L502.0250, L503.0106, L500.4050, L503.6030, L503.6550 #### [facility] [address] [place], [address] Urea nitrogen [Mass/Vol] 21 mg/dL High 4-19 [facility] Comment on above: Performed By: #### L 100.0100, L501.9520, L502.0250, L503.0106, L500.4050, L503.6030, L503.6550 #### [facility] [address] [place], [address] Eosinophil percentageOrdered By: Lesly Hardwick on 10-21-2024 Eosinophils/100 WBC (Bld) 3.1 % 0-5 [facility] Erythrocyte distribution wid th ratioOrdered By: Lesly Hardwick on 10-21-2024 Erythrocyte distribution width (RBC) [Ratio] 17.2 % High 11.6-14.6 [facility] Erythrocyte distribution wid th standard deviationOrdered By: Lesly Hardwick on 10-21-2024 Erythrocyte distribution width (RBC) [Ratio] 51.8 fl High 35.1-43.9 [facility] Gastroenterology Visit Repor ton 10-21-2024 Gastroenterology Visit Report [facility] [address] [place] [address] OFFICE VISIT Date of Service: 10/21/24 MR#: [id number] Acct: [id number] Name: SANDIE ANGELES Rep #: [id number] : 1945 Provider: SUZETTE Carlson Age/Sex: 79/F [place] [facility] [place] Status: Signed Intake Vital Signs 06/28/24 14:04 [...] fallen in the past year?: No [facility] Medical History (Updated 08/14/24 @ 18:47 by [...] in: other frequency: 1-2 times per week luna/restoration: Evangelical seatbelt use: always HPI HPI Chief Complaint: [...] heater probe. - Chronic duodenitis. Biopsied. OV 9/12/25 patient seen by primary care provider who [...] with swal (more content not included)... Normal [facility] Glomerular filtration rate ( GFR) estimation/1.73 sq m using serum, plasma, or whole bOrdered By: Lesly Hardwick on 10-21-2024 GFR/1.73 sq M.predicted among non-blacks MDRD (S/P/Bld) [Vol rate/Area] 39 mL/min/{1.73_m2} Low >60 [facility] Comment on above: mL/min/1.73m2 CKD-EP I Creatinine Equation (2020) Hematocrit Auto (Bld) [Volum e fraction]Ordered By: Lesly Hardwick on 10-21-2024 Hematocrit (Bld) [Volume fraction] 26.7 % Low 37-47 [facility] Hemoglobin measurementOrdere d By: Lesly Hardwick on 10-21-2024 Hemoglobin (Bld) [Mass/Vol] 8.1 g/dL Low 12.0-15.0 [facility] Immature granulocytes/100 WB C Auto (Bld)Ordered By: Lesly Hardwick on 10-21-2024 Immature granulocytes/100 WBC (Bld) 0.500 % 0.0-0.9 [facility] Comment on above: IG% - Immature Granu locytes (promyelocytes, myelocytes and metamyelocytes) > 1% indicates that a LEFT SHIFT is Present. Laboratory - Chemistry and C hemistry - challengeOrdered By: Lesyl Mulu on 10-21-2024 AST [Catalytic activity/Vol] 28 U/L <32 [facility] MCV (mean corpuscular volume ) determinationOrdered By: Lesly Mejiadamian on 10-21-2024 MCV (RBC) [Entitic vol] 83.7 fL 81-99 [facility] MR/PAT.ANEon 10-21-2024 MR/PAT.ANE [facility] Medical Records Department [address] [place] [address] PAT - Anesthesia 10/21/24 1228 MR#: [id number] Acct: [id number] Name: SANDIE ANGELES Rep #: [id number] : 1945 79 From: Arya Dumont MD PCP: Dr. 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.] Tobacco Use History Tobacco Use History - sales executive insurance: Tobacco Use History - sales executive insurance Tobacco Use Non-smoker 09/10/21 10:00 Smoking Status Never smoker 10/21/24 11:31 Hx Tobacco Use No 10/21/24 11:31 Years Smoking Packs Smoked per Day Smoking Cessation Date was within the last 15 years Hx Smoking Cessation Date Hx Smoking Cessation No: patient doesn't smoke 10/21/24 11:31 Counseling Hematologic Medial History Hematologic Hx - sales executive insurance: 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 Normal [facility] Mean corpuscular hemoglobin (MCH) determinationOrdered By: Lesly Hardwick on 10-21-2024 MCH (RBC) [Entitic mass] 25.4 pg Low 27.0-32.0 [facility] Mean corpuscular hemoglobin concentration (MCHC) determinationOrdered By: Lesly Hardwick on 10-21-2024 MCHC (RBC) [Mass/Vol] 30.3 g/dL Low 32-36 [facility] Mean platelet volume determi nationOrdered By: Lesly Hardwick on 10-21-2024 Platelet mean volume (Bld) [Entitic vol] 11.1 fL 6.2-12.0 [facility] Monocyte percentageOrdered B y: Lesly Hardwick on 10-21-2024 Monocytes/100 WBC (Bld) 7.8 % 0-10 [facility] Neutrophil percentageOrdered By: Lesly Hardwick on 10-21-2024 Neutrophils/100 WBC (Bld) 74.2 % High 47-70 [facility] Nucleated red blood cell per centageOrdered By: Lesly Hardwick on 10-21-2024 Nucleated RBC/100 WBC (Bld) [Ratio] 0 % 0-5 [facility] Platelet countOrdered By: Alejandra Hardwick on 10-21-2024 Platelets (Bld) [#/Vol] 164 10*3/uL 150-450 [facility] Potassium measurement (mass/ volume)Ordered By: Lesly Hardwick on 10-21-2024 Potassium (Unsp spec) [Mass/Vol] 3.9 mmol/L 3.3-5.1 [facility] RBC Auto (Bld) [#/Vol]Ordere d By: Lesly Hardwick on 10-21-2024 RBC (Bld) [#/Vol] 3.19 10*6/uL Low 4.2-5.4 [facility] Serum creatinine measurement (mass/volume)Ordered By: Lesly Hardwick on 10-21-2024 Creatinine [Mass/Vol] 1.35 mg/dL High 0.70-1.20 [facility] Serum globulin measurementOr dered By: Lesly Hardwick on 10-21-2024 Globulin (S) [Mass/Vol] 3.6 g/dL 2.2-4.2 [facility] Serum glucose measurement (m ass/volume)Ordered By: Lesly Hardwick on 10-21-2024 Glucose [Mass/Vol] 170 mg/dL High 70-99 [facility] Serum or plasma alanine mao otransferase (ALT) measurementOrdered By: Lesly Hardwick on 10-21-2024 ALT [Catalytic activity/Vol] 12 U/L <35 [facility] Serum or plasma albumin nick urement (mass/volume)Ordered By: Lesly Hardwick on 10-21-2024 Albumin [Mass/Vol] 3.7 g/dL 3.4-4.8 [facility] Serum or plasma albumin/glob ulin mass ratioOrdered By: Lesly Hardwick on 10-21-2024 Albumin/Globulin [Mass ratio] 1.0 {ratio} 0.9-2.4 [facility] Serum or plasma alkaline kathleen sphatase measurementOrdered By: Lesly Hardwick on 10-21-2024 ALP [Catalytic activity/Vol] 97 U/L 35-104 [facility] Serum or plasma calcium nick urement (mass/volume)Ordered By: Lesly Hardwick on 10-21-2024 Calcium [Mass/Vol] 8.4 mg/dL 7.6-11.0 [facility] Serum or plasma urea nitroge n measurement (mass/volume)Ordered By: Lesly Hardwick on 10-21-2024 Urea nitrogen [Mass/Vol] 21 mg/dL High 4-19 [facility] Sodium levelOrdered By: Laurie Hardwick on 10-21-2024 Sodium [Moles/Vol] 141 mmol/L 133-145 [facility] Total proteinOrdered By: Josephine Hardwick on 10-21-2024 Protein [Mass/Vol] 7.3 g/dL 5.9-8.4 [facility] White blood cell (WBC) count Ordered By: Lesly Hardwick on 10-21-2024 WBC (Bld) [#/Vol] 4.2 10*3/uL Low 4.4-11.0 [facility] Absolute lymphocyte countOrd ered By: Desiree Tapia on 10-04-2024 Lymphocytes Auto (Unsp spec) [#/Vol] 0.83 10*3/uL 0.83-4.51 [facility] Absolute neutrophil countOrd ered By: Desiree Tapia on 10-04-2024 Neutrophils (Bld) [#/Vol] 5.4 10*3/uL 2.0-7.7 [facility] Anion gap in Serum or Plasma Ordered By: Desiree Tapia on 10-04-2024 Anion gap [Moles/Vol] 15 mmol/L 5-15 [facility] Automated lymphocyte count a s percentage of total leukocytesOrdered By: Desiree Tapia on 10-04-2024 Lymphocytes/100 WBC Auto (Unsp spec) 11.8 % Low 19-41 [facility] BUN/creatinine ratioOrdered By: Desiree Tapia on 10-04-2024 Urea nitrogen/Creatinine [Mass ratio] 13.8 mg/mg 10-20 [facility] Basophil percentageOrdered B y: Desiree Tapia on 10-04-2024 Basophils/100 WBC (Bld) 0.9 % 0-1 [facility] Bilirubin, totalOrdered By: Desiree Tapia on 10-04-2024 Bilirubin [Mass/Vol] 0.70 mg/dL 0.00-1.30 [facility] CBC W/Diff, Automatedon 08-2 -2024 Absolute Lymph 0.83 X10 3/uL Normal 0.83-4.51 [facility] Comment on above: Performed By: #### L 100.0100, L501.9520, L502.0250, L503.0106, L500.4050, L503.6030, L503.6550 #### [facility] [address] [place], [address] Absolute Neut 5.4 X10 3/uL Normal 2.0-7.7 [facility] Comment on above: Performed By: #### L 100.0100, L501.9520, L502.0250, L503.0106, L500.4050, L503.6030, L503.6550 #### [facility] [address] [place], [address] Basophils/100 WBC (Bld) 0.9 % Normal 0-1 [facility] Comment on above: Performed By: #### L 100.0100, L501.9520, L502.0250, L503.0106, L500.4050, L503.6030, L503.6550 #### [facility] [address] [place], [address] Eosinophils/100 WBC (Bld) 2.1 % Normal 0-5 [facility] Comment on above: Performed By: #### L 100.0100, L501.9520, L502.0250, L503.0106, L500.4050, L503.6030, L503.6550 #### [facility] [address] [place], [address] Erythrocyte distribution width (RBC) [Ratio] 14.9 % High 11.6-14.6 [facility] Comment on above: Performed By: #### L 100.0100, L501.9520, L502.0250, L503.0106, L500.4050, L503.6030, L503.6550 #### [facility] [address] [place], [address] Hematocrit (Bld) [Volume fraction] 28.0 % Low 37-47 [facility] Comment on above: Performed By: #### L 100.0100, L501.9520, L502.0250, L503.0106, L500.4050, L503.6030, L503.6550 #### [facility] [address] [place], [address] Hemoglobin (Bld) [Mass/Vol] 8.3 g/dL Low 12.0-15.0 [facility] Comment on above: Performed By: #### L 100.0100, L501.9520, L502.0250, L503.0106, L500.4050, L503.6030, L503.6550 #### [facility] [address] [place], [address] IG% 1.600 High 0.0-0.9 [facility] Comment on above: Result Comment: IG% - Immature Granulocytes (promyelocytes, myelocytes and metamyelocytes) > 1% indicates that a LEFT SHIFT is Present. Performed By: #### L 100.0100, L501.9520, L502.0250, L503.0106, L500.4050, L503.6030, L503.6550 #### [facility] [address] [place], [address] Lymphocytes/100 WBC (Bld) 11.8 % Low 19-41 [facility] Comment on above: Performed By: #### L 100.0100, L501.9520, L502.0250, L503.0106, L500.4050, L503.6030, L503.6550 #### [facility] [address] [place], [address] MCH (RBC) [Entitic mass] 24.9 pg Low 27.0-32.0 [facility] Comment on above: Performed By: #### L 100.0100, L501.9520, L502.0250, L503.0106, L500.4050, L503.6030, L503.6550 #### [facility] [address] [place], [address] MCHC (RBC) [Mass/Vol] 29.6 g/dL Low 32-36 [facility] Comment on above: Performed By: #### L 100.0100, L501.9520, L502.0250, L503.0106, L500.4050, L503.6030, L503.6550 #### [facility] [address] [place], [address] MCV (RBC) [Entitic vol] 83.8 fL Normal 81-99 [facility] Comment on above: Performed By: #### L 100.0100, L501.9520, L502.0250, L503.0106, L500.4050, L503.6030, L503.6550 #### [facility] [address] [place], [address] Monocytes/100 WBC (Bld) 7.8 % Normal 0-10 [facility] Comment on above: Performed By: #### L 100.0100, L501.9520, L502.0250, L503.0106, L500.4050, L503.6030, L503.6550 #### [facility] [address] [place], [address] Neutrophils/100 WBC (Bld) 75.8 % High 47-70 [facility] Comment on above: Performed By: #### L 100.0100, L501.9520, L502.0250, L503.0106, L500.4050, L503.6030, L503.6550 #### [facility] [address] [place], [address] Nucleated RBC (Bld) [#/Vol] 0 10*3/uL Normal 0-5 [facility] Comment on above: Performed By: #### L 100.0100, L501.9520, L502.0250, L503.0106, L500.4050, L503.6030, L503.6550 #### [facility] [address] [place], [address] Platelet mean volume (Bld) [Entitic vol] 11.9 fL Normal 6.2-12.0 [facility] Comment on above: Performed By: #### L 100.0100, L501.9520, L502.0250, L503.0106, L500.4050, L503.6030, L503.6550 #### [facility] [address] [place], [address] Platelets (Bld) [#/Vol] 220 10*3/uL Normal 150-450 [facility] Comment on above: Performed By: #### L 100.0100, L501.9520, L502.0250, L503.0106, L500.4050, L503.6030, L503.6550 #### [facility] [address] [place], [address] RBC (Bld) [#/Vol] 3.34 10*6/uL Low 4.2-5.4 [facility] Comment on above: Performed By: #### L 100.0100, L501.9520, L502.0250, L503.0106, L500.4050, L503.6030, L503.6550 #### [facility] [address] [place], [address] RDW SD 45.2 fl High 35.1-43.9 [facility] Comment on above: Performed By: #### L 100.0100, L501.9520, L502.0250, L503.0106, L500.4050, L503.6030, L503.6550 #### [facility] [address] [place], [address] WBC (Bld) [#/Vol] 7.1 10*3/uL Normal 4.4-11.0 [facility] Comment on above: Performed By: #### L 100.0100, L501.9520, L502.0250, L503.0106, L500.4050, L503.6030, L503.6550 #### [facility] [address] [place], [address] Carbon dioxide, total [Moles /volume] in Central venous bloodOrdered By: Desiree Tapia on 10-04-2024 CO2 [Moles/Vol] 20.1 mmol/L Low 21.0-32.0 [facility] Chloride assayOrdered By: Lasha Tapia on 10-04-2024 Chloride [Moles/Vol] 107 mmol/L 98-108 [facility] Comprehensive Metabolic Prof ilon 10-04-2024 Albumin [Mass/Vol] 3.9 g/dL Normal 3.4-4.8 [facility] Comment on above: Performed By: #### L 100.0100, L501.9520, L502.0250, L503.0106, L500.4050, L503.6030, L503.6550 #### [facility] [address] [place], [address] Albumin/Globulin [Mass ratio] 1.1 {ratio} Normal 0.9-2.4 [facility] Comment on above: Performed By: #### L 100.0100, L501.9520, L502.0250, L503.0106, L500.4050, L503.6030, L503.6550 #### [facility] [address] [place], [address] ALK PHOS 122 U/L High 35-104 [facility] Comment on above: Performed By: #### L 100.0100, L501.9520, L502.0250, L503.0106, L500.4050, L503.6030, L503.6550 #### [facility] [address] [place], [address] ALT [Catalytic activity/Vol] 21 U/L Normal <=34 [facility] Comment on above: Performed By: #### L 100.0100, L501.9520, L502.0250, L503.0106, L500.4050, L503.6030, L503.6550 #### [facility] [address] [place], [address] AST [Catalytic activity/Vol] 29 U/L Normal <=31 [facility] Comment on above: Performed By: #### L 100.0100, L501.9520, L502.0250, L503.0106, L500.4050, L503.6030, L503.6550 #### [facility] [address] [place], [address] Bilirubin [Mass/Vol] 0.70 mg/dL Normal 0.00-1.30 [facility] Comment on above: Performed By: #### L 100.0100, L501.9520, L502.0250, L503.0106, L500.4050, L503.6030, L503.6550 #### [facility] [address] [place], [address] BUN/CRE 13.8 RATIO Normal 10-20 [facility] Comment on above: Performed By: #### L 100.0100, L501.9520, L502.0250, L503.0106, L500.4050, L503.6030, L503.6550 #### [facility] [address] [place], [address] Calcium [Mass/Vol] 8.9 mg/dL Normal 7.6-11.0 [facility] Comment on above: Performed By: #### L 100.0100, L501.9520, L502.0250, L503.0106, L500.4050, L503.6030, L503.6550 #### [facility] [address] [place], [address] Chloride [Moles/Vol] 107 mmol/L Normal 98-108 [facility] Comment on above: Performed By: #### L 100.0100, L501.9520, L502.0250, L503.0106, L500.4050, L503.6030, L503.6550 #### [facility] [address] [place], [address] CO2 [Moles/Vol] 20.1 mmol/L Low 21.0-32.0 [facility] Comment on above: Performed By: #### L 100.0100, L501.9520, L502.0250, L503.0106, L500.4050, L503.6030, L503.6550 #### [facility] [address] [place], [address] Creatinine [Mass/Vol] 1.29 mg/dL High 0.70-1.20 [facility] Comment on above: Performed By: #### L 100.0100, L501.9520, L502.0250, L503.0106, L500.4050, L503.6030, L503.6550 #### [facility] [address] [place], [address] GAP 15 Normal 5-15 [facility] Comment on above: Performed By: #### L 100.0100, L501.9520, L502.0250, L503.0106, L500.4050, L503.6030, L503.6550 #### [facility] [address] [place], [address] GFR/1.73 sq M.predicted among non-blacks MDRD (S/P/Bld) [Vol rate/Area] 42 mL/min/{1.73_m2} Low >60 [facility] Comment on above: Result Comment: mL/m in/1.73m2 CKD-EPI Creatinine Equation (2020) Performed By: #### L 100.0100, L501.9520, L502.0250, L503.0106, L500.4050, L503.6030, L503.6550 #### [facility] [address] [place], [address] Globulin (S) [Mass/Vol] 3.6 g/dL Normal 2.2-4.2 [facility] Comment on above: Performed By: #### L 100.0100, L501.9520, L502.0250, L503.0106, L500.4050, L503.6030, L503.6550 #### [facility] [address] [place], [address] Glucose [Mass/Vol] 173 mg/dL High 70-99 [facility] Comment on above: Performed By: #### L 100.0100, L501.9520, L502.0250, L503.0106, L500.4050, L503.6030, L503.6550 #### [facility] [address] [place], [address] Potassium [Moles/Vol] 4.1 mmol/L Normal 3.3-5.1 [facility] Comment on above: Performed By: #### L 100.0100, L501.9520, L502.0250, L503.0106, L500.4050, L503.6030, L503.6550 #### [facility] [address] [place], [address] Sodium [Moles/Vol] 142 mmol/L Normal 133-145 [facility] Comment on above: Performed By: #### L 100.0100, L501.9520, L502.0250, L503.0106, L500.4050, L503.6030, L503.6550 #### [facility] [address] [place], [address] T PROT 7.5 g/dL Normal 5.9-8.4 [facility] Comment on above: Performed By: #### L 100.0100, L501.9520, L502.0250, L503.0106, L500.4050, L503.6030, L503.6550 #### [facility] [address] [place], [address] Urea nitrogen [Mass/Vol] 18 mg/dL Normal 4-19 [facility] Comment on above: Performed By: #### L 100.0100, L501.9520, L502.0250, L503.0106, L500.4050, L503.6030, L503.6550 #### [facility] [address] [facility] [place], [address] Eosinophil percentageOrdered By: Desiree Tapia on 10-04-2024 Eosinophils/100 WBC (Bld) 2.1 % 0-5 [facility] Erythrocyte distribution wid th ratioOrdered By: Desiree Tapia on 10-04-2024 Erythrocyte distribution width (RBC) [Ratio] 14.9 % High 11.6-14.6 [facility] Erythrocyte distribution wid th standard deviationOrdered By: Desiree Tapia on 10-04-2024 Erythrocyte distribution width (RBC) [Ratio] 45.2 fl High 35.1-43.9 [facility] Ferritinon 10-04-2024 Ferritin [Mass/Vol] 14 ng/mL Low 22-378 [facility] Comment on above: Performed By: #### L 100.0100, L501.9520, L502.0250, L503.0106, L500.4050, L503.6030, L503.6550 #### [facility] [address] [place], [address] Glomerular filtration rate ( GFR) estimation/1.73 sq m using serum, plasma, or whole bOrdered By: Desiree Tapia on 10-04-2024 GFR/1.73 sq M.predicted among non-blacks MDRD (S/P/Bld) [Vol rate/Area] 42 mL/min/{1.73_m2} Low >60 [facility] Comment on above: mL/min/1.73m2 CKD-EP I Creatinine Equation (2020) Hematocrit Auto (Bld) [Volum e fraction]Ordered By: Desiree Tapia on 10-04-2024 Hematocrit (Bld) [Volume fraction] 28.0 % Low 37-47 [facility] Hemoglobin measurementOrdere d By: Desiree Tapia on 10-04-2024 Hemoglobin (Bld) [Mass/Vol] 8.3 g/dL Low 12.0-15.0 [facility] Immature granulocytes/100 WB C Auto (Bld)Ordered By: Desiree Tapia on 10-04-2024 Immature granulocytes/100 WBC (Bld) 1.600 % High 0.0-0.9 [facility] Comment on above: IG% - Immature Granu locytes (promyelocytes, myelocytes and metamyelocytes) > 1% indicates that a LEFT SHIFT is Present. Iron measurement (mass/mass) Ordered By: Desiree Tapia on 10-04-2024 Iron (Unsp spec) [Mass/Mass] 29 ug/dL Low 50-170 [facility] Iron+Iron Binding Capacityon 10-04-2024 Iron [Mass/Vol] 29 ug/dL Low 50-170 [facility] Comment on above: Performed By: #### L 100.0100, L501.9520, L502.0250, L503.0106, L500.4050, L503.6030, L503.6550 #### [facility] [address] [place], [address] IRON SATURATION 7.0 Low 13-59 [facility] Comment on above: Performed By: #### L 100.0100, L501.9520, L502.0250, L503.0106, L500.4050, L503.6030, L503.6550 #### [facility] [address] [place], [address] TIBC 406 ug/dL Normal 250-450 [facility] Comment on above: Performed By: #### L 100.0100, L501.9520, L502.0250, L503.0106, L500.4050, L503.6030, L503.6550 #### [facility] [address] [place], [address] UIBC 377 ug/dL Normal 228-428 [facility] Comment on above: Performed By: #### L 100.0100, L501.9520, L502.0250, L503.0106, L500.4050, L503.6030, L503.6550 #### [facility] [address] [place], [address] Laboratory - Chemistry and C hemistry - challengeOrdered By: Desiree Tapia on 10-04-2024 AST [Catalytic activity/Vol] 29 U/L <32 [facility] MCV (mean corpuscular volume ) determinationOrdered By: Desiree Tapia on 10-04-2024 MCV (RBC) [Entitic vol] 83.8 fL 81-99 [facility] Mean corpuscular hemoglobin (MCH) determinationOrdered By: Desiree Tapia on 10-04-2024 MCH (RBC) [Entitic mass] 24.9 pg Low 27.0-32.0 [facility] Mean corpuscular hemoglobin concentration (MCHC) determinationOrdered By: Desiree Tapia on 10-04-2024 MCHC (RBC) [Mass/Vol] 29.6 g/dL Low 32-36 [facility] Mean platelet volume determi nationOrdered By: Desiree Tapia on 10-04-2024 Platelet mean volume (Bld) [Entitic vol] 11.9 fL 6.2-12.0 [facility] Microalb:Creat Ratio,Random URon 10-04-2024 MALB:CREAT 327.0 mg/g CRE High <30 mg/g CRE [facility] Comment on above: Performed By: #### L 100.0100, L501.9520, L502.0250, L503.0106, L500.4050, L503.6030, L503.6550 #### [facility] [address] [place], [address] MICROALBUMIN,UR 533.0 mg/L Normal <20 mg/L [facility] Comment on above: Performed By: #### L 100.0100, L501.9520, L502.0250, L503.0106, L500.4050, L503.6030, L503.6550 #### [facility] [address] [place], [address] Monocyte percentageOrdered B y: Desiree Tapia on 10-04-2024 Monocytes/100 WBC (Bld) 7.8 % 0-10 [facility] Neutrophil percentageOrdered By: Desiree Tapia on 10-04-2024 Neutrophils/100 WBC (Bld) 75.8 % High 47-70 [facility] No Panel InformationOrdered By: Desiree Tapia on 10-04-2024 Unsaturated Iron Binding Capacity 377 ug/dL 228-428 [facility] Nucleated red blood cell per centageOrdered By: Desiree Tapia on 10-04-2024 Nucleated RBC/100 WBC (Bld) [Ratio] 0 % 0-5 [facility] Platelet countOrdered By: Lasha Tapia on 10-04-2024 Platelets (Bld) [#/Vol] 220 10*3/uL 150-450 [facility] Potassium measurement (mass/ volume)Ordered By: Desiree Tapia on 10-04-2024 Potassium (Unsp spec) [Mass/Vol] 4.1 mmol/L 3.3-5.1 [facility] [facility] RBC Auto (Bld) [#/Vol]Ordere d By: Desiree Tapia on 10-04-2024 RBC (Bld) [#/Vol] 3.34 10*6/uL Low 4.2-5.4 [facility] Random urine creatinine nick urement (mass/volume)Ordered By: Desiree Tapia on 10-04-2024 Creatinine Unsp time (U) [Mass/Vol] 163.00 mg/dL 28.00-217. 00 [facility] Serum creatinine measurement (mass/volume)Ordered By: Desiree Tapia on 10-04-2024 Creatinine [Mass/Vol] 1.29 mg/dL High 0.70-1.20 [facility] Serum globulin measurementOr dered By: Desiree Tapia on 10-04-2024 Globulin (S) [Mass/Vol] 3.6 g/dL 2.2-4.2 [facility] Serum glucose measurement (m ass/volume)Ordered By: Desiree Tapia on 10-04-2024 Glucose [Mass/Vol] 173 mg/dL High 70-99 [facility] Serum or plasma alanine mao otransferase (ALT) measurementOrdered By: Desiree Tapia on 10-04-2024 ALT [Catalytic activity/Vol] 21 U/L <35 [facility] Serum or plasma albumin nick urement (mass/volume)Ordered By: Desiree Tapia on 10-04-2024 Albumin [Mass/Vol] 3.9 g/dL 3.4-4.8 [facility] Serum or plasma albumin/glob ulin mass ratioOrdered By: Desiree Tapia on 10-04-2024 Albumin/Globulin [Mass ratio] 1.1 {ratio} 0.9-2.4 [facility] Serum or plasma alkaline kathleen sphatase measurementOrdered By: Desiree Tapia on 10-04-2024 ALP [Catalytic activity/Vol] 122 U/L High 35-104 [facility] Serum or plasma calcium nick urement (mass/volume)Ordered By: Desiree Tapia on 10-04-2024 Calcium [Mass/Vol] 8.9 mg/dL 7.6-11.0 [facility] Serum or plasma ferritin bacilio surement (mass/volume)Ordered By: Desiree Tapia on 10-04-2024 Ferritin [Mass/Vol] 14 ng/mL Low 22-378 [facility] Serum or plasma iron saturat ion measurement (mass fraction)Ordered By: Desiree Tapia on 10-04-2024 Iron saturation [Mass fraction] 7.0 % Low 13-59 [facility] Serum or plasma urea nitroge n measurement (mass/volume)Ordered By: Desiree Tapia on 10-04-2024 Urea nitrogen [Mass/Vol] 18 mg/dL 4-19 [facility] Sodium levelOrdered By: Alvina Tapia on 10-04-2024 Sodium [Moles/Vol] 142 mmol/L 133-145 [facility] TSH DL <= 0.005 mIU/L QnOrde red By: Desiree Tapia on 10-04-2024 TSH Qn 4.760 uIU/mL High 0.300-4.20 0 [facility] Thyroid Stim Hormone (TSH)on 10-04-2024 TSH 4.760 uIU/mL High 0.300-4.20 0 [facility] Comment on above: Performed By: #### L 100.0100, L501.9520, L502.0250, L503.0106, L500.4050, L503.6030, L503.6550 #### [facility] Laboratory [address] [place] [address]. [place], [place], [id number] Total proteinOrdered By: Hermes Tapia on 10-04-2024 Protein [Mass/Vol] 7.5 g/dL 5.9-8.4 [facility] Urine albumin measurement wi detection limit of 20 mg/L or less (mass/volume)Ordered By: Desiree Tapia on 10-04-2024 Albumin DL <= 20 mg/L (U) [Mass/Vol] 533.0 mg/L <20 mg/L [facility] Vitamin B12on 10-04-2024 Cobalamin (Vitamin B12) [Mass/Vol] 536 pg/mL Normal 180-914 [facility] Comment on above: Performed By: #### L 100.0100, L501.9520, L502.0250, L503.0106, L500.4050, L503.6030, L503.6550 #### [facility] Laboratory [address] [place], [address] Vitamin B12 ser/plasOrdered By: Desiree Tapia on 10-04-2024 Cobalamin (Vitamin B12) [Mass/Vol] 536 pg/mL 180-914 [facility] White blood cell (WBC) count Ordered By: Desiree Tapia on 10-04-2024 WBC (Bld) [#/Vol] 7.1 10*3/uL 4.4-11.0 [facility] Modified Barium Swallow Stud yon 08-29-2024 Modified Barium Swallow Study [facility] Speech Pathology [address] [place] [address] Modified Barium Swallow Study MR#: [id number] Acct: [id number] Name: SANDIE ANGELES DAWSON Rep #: [id number] : 1945 79 From: Mandie Pham M.A., [facility] OPER[facility] Modified Barium Swallow Patient Information Study Date: [...] in the lower esophagus w/ retrograde flow. [place] Thick Liquid via small single sip: cup: [...] esophagus. Recommendations (more content not included)... Normal [facility] Neurology Visit Reporton Neurology Visit Report [facility] [address], [address] [place] [address] OFFICE VISIT Date of Service: 06/28/24 MR#: [id number] Acct: [id number] Name: SANDIE ANGELES DAWSON Rep #: [id number] : 1945 Provider: Dr. Surendra vergara MD Age/Sex: 79/F [place] [facility] [place] Status: Signed HPI HPI Chief Complaint: Fatigue, [...] the eye directly. She has seen an drill press tender. She was treated with a course of [...] in the toes. She takes acetaminophen and eegc-zss-xurinjr ibuprofen once or twice daily and this [...] was low however a podiatry referral (Alexsandra MarshallP.Juan Jose) was made however the patient did not see a funeral arrangement director. Right ankle x-rays revealed mild soft tissue [...] with post (more content not included)... Normal [facility] Urgent Care Visit Reporton 0 06-28-2024 Urgent Care Visit Report [facility] [address] [place] [address] [place] [address] OFFICE VISIT Date of Service: 06/28/24 MR#: [id number] Acct: [id number] Name: SANDIE ANGELES DAWSON Rep #: [id number] : 1945 Provider: SUZETTE Whitman Age/Sex: 79/F Location: [facility] Status: Signed Intake Vital Signs 06/28/24 13:05 [...] R EAR Chief Complaint: right ear plugged Protective Signal Operator Required: No Is patient in pain?: No [...] Dr. Hidalgo for eval right ear. [facility] Medical History (Updated 06/28/24 @ 15:34 by [...] in: other frequency: 1-2 times per week luna/restoration: Evangelical seatbelt use: always HPI HPI Chief Complaint: right ear plugged Details: SANDIE BRIDGETTE, is a 79 F who presents to the office today for right ear cerumen impaction removal as noticed by neurology. Patient notes localized tender to the same though no complaints of fever, chills, sweats, lightheadedness/dizziness, nausea/vomiting. Patient admits to using Q-tips to clean her ears frequently. No xntb-pam-jipiztf medications taken to assist with current symptoms. No other associated symptoms and no other alleviating/aggravating factors. ROS Const Constitutional: No other (As above) Exam Const General: cooperative, healthy appearing and no acute distress Orientation: alert and awake [facility] Head: normal to inspection Ears: hearing [...] of Cerumen: (more content not included)... Normal [facility] Duplex ultrasound of carotid artery reportOrdered By: Arya Argueta on 04-20-2024 Study report [facility] [address] [place] [address] Carotid Duplex Ultrasound 04/19/24 0948 MR#: [id number] Acct: [id number] Name: SANDIE ANGELES DAWSON Rep #:[id number] : 1945 78 From: Arya Brown Attending Dr: SUZETTE Cavazos Stat us: REG CLI Ordering Dr: Haley Menard Date: Location: [facility] Sex: F C Admitted: Reason For Study Reason For Study: CAROTID STENOSIS Rt. Velocities/BP Lt. Velocities/BP Prox CCA 79.9/10.0 cm/sec. Prox CCA 107.6/13.0 cm/sec. Mid CCA 75.2/11.9 cm/sec. Mid VJW243.7/14.2 cm/sec. Dist CCA 72.4/8.1 cm/sec. Dist CCA [...] the left vertebral artery. Procedure Carotid Duplex 46472. This is a Carotid Duplex examination using [...] ~ Date Dictated: 04/19/24947 Date Transcribed: 04/20/24705 Criminal Judge: Signed [facility] Work Phone: Carotid Duplex Ultrasoundon 04-19-2024 Carotid Duplex Ultrasound [facility] Cardi[facility] Services [address] [place] [address] Carotid Duplex Ultrasound 04/19/24947 MR#: [id number] Acct: [id number] Name: SANDIE ANGELES DAWSON Rep #: [id number] : 1945 78 From: Arya Argueta MD Attending Dr: SUZETTE Cavazos Status: REG CLI Ordering Dr: Haley Menard Date: 04/19/24 Location: [facility] Sex: F C Admitted: Reason For [...] the left vertebral artery. Procedure Carotid Duplex 93303. This is a Carotid Duplex examination using [...] Cavazos; Dr. Desiree Tapia MD Date Dictated: 04/19/2448 Date Transcribed: 04/20/24705 Criminal Judge: Signed [facility] MR/BMS.BVSon 04-19-2024 MR/BMS.S [facility] [address] [place] [address] OFFICE VISIT Date of Service: 04/19/24 MR#: [id number] Acct: [id number] Name: SANDIE ANGELES Rep #: [id number] : 1945 Provider: SUZETTE Cavazos Age/Sex: 78/F [place] 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 Normal [facility] Absolute lymphocyte countOrd ered By: Desiree Tapia on 04-01-2024 Lymphocytes Auto (Unsp spec) [#/Vol] 0.75 10*3/uL Low 0.83-4.51 [facility] Absolute neutrophil countOrd ered By: Desiree Tapia on 04-01-2024 Neutrophils (Bld) [#/Vol] 3.8 10*3/uL 2.0-7.7 [facility] Albumin to globulin ratioOrd ered By: Desiree Tapia on 04-01-2024 Albumin/Globulin [Mass ratio] 0.7 {ratio} Low 0.9-2.4 [facility] Automated lymphocyte count a s percentage of total leukocytesOrdered By: Desiree Tapia on 04-01-2024 Lymphocytes/100 WBC Auto (Unsp spec) 14.6 % Low 19-41 [facility] Basophil percentageOrdered B y: Desiree Tapia on 04-01-2024 Basophils/100 WBC (Bld) 1.2 % High 0-1 [facility] Bilirubin, totalOrdered By: Desiree Tapia on 04-01-2024 Bilirubin [Mass/Vol] 0.50 mg/dL 0.20-1.00 [facility] Comment on above: For patients on eltr ombopag therapy, use of Dimension [place] TBIL is not recommended. Blood urea nitrogen (BUN)/cr eatinine ratioOrdered By: Desiree Tapia on 04-01-2024 Urea nitrogen/Creatinine [Mass ratio] 17.4 mg/mg 11-28 [facility] CBC W/Diff, Automatedon 03-13 Absolute Lymph 0.75 X10 3/uL Low 0.83-4.51 [facility] Comment on above: Performed By: #### L 100.0100, L501.9520, L502.0250, L503.0106, L500.4050, L503.6030, L503.6550 #### [facility] Laboratory [address] [place], [address] Absolute Neut 3.8 X10 3/uL Normal 2.0-7.7 [facility] Comment on above: Performed By: #### L 100.0100, L501.9520, L502.0250, L503.0106, L500.4050, L503.6030, L503.6550 #### [facility] [address] [place], [address] Basophils/100 WBC (Bld) 1.2 % High 0-1 [facility] Comment on above: Performed By: #### L 100.0100, L501.9520, L502.0250, L503.0106, L500.4050, L503.6030, L503.6550 #### [facility] [address] [place], [address] Eosinophils/100 WBC (Bld) 2.7 % Normal 0-5 [facility] Comment on above: Performed By: #### L 100.0100, L501.9520, L502.0250, L503.0106, L500.4050, L503.6030, L503.6550 #### [facility] [address] [place], [address] Erythrocyte distribution width (RBC) [Ratio] 14.0 % Normal 11.6-14.6 [facility] Comment on above: Performed By: #### L 100.0100, L501.9520, L502.0250, L503.0106, L500.4050, L503.6030, L503.6550 #### [facility] [address] [place], [address] Hematocrit (Bld) [Volume fraction] 38.4 % Normal 37-47 [facility] Comment on above: Performed By: #### L 100.0100, L501.9520, L502.0250, L503.0106, L500.4050, L503.6030, L503.6550 #### [facility] [address] [place], [address] Hemoglobin (Bld) [Mass/Vol] 12.5 g/dL Normal 12.0-15.0 [facility] Comment on above: Performed By: #### L 100.0100, L501.9520, L502.0250, L503.0106, L500.4050, L503.6030, L503.6550 #### [facility] [address] [place], [address] IG% 0.200 Normal 0.0-0.9 [facility] Comment on above: Result Comment: IG% - Immature Granulocytes (promyelocytes, myelocytes and metamyelocytes) > 1% indicates that a LEFT SHIFT is Present. Performed By: #### L 100.0100, L501.9520, L502.0250, L503.0106, L500.4050, L503.6030, L503.6550 #### [facility] [address] [place], [address] Lymphocytes/100 WBC (Bld) 14.6 % Low 19-41 [facility] Comment on above: Performed By: #### L 100.0100, L501.9520, L502.0250, L503.0106, L500.4050, L503.6030, L503.6550 #### [facility] [address] [place], [address] MCH (RBC) [Entitic mass] 30.6 pg Normal 27.0-32.0 [facility] Comment on above: Performed By: #### L 100.0100, L501.9520, L502.0250, L503.0106, L500.4050, L503.6030, L503.6550 #### [facility] [address] [place], [address] MCHC (RBC) [Mass/Vol] 32.6 g/dL Normal 32-36 [facility] Comment on above: Performed By: #### L 100.0100, L501.9520, L502.0250, L503.0106, L500.4050, L503.6030, L503.6550 #### [facility] [address] [place], [address] MCV (RBC) [Entitic vol] 94.1 fL Normal 81-99 [facility] Comment on above: Performed By: #### L 100.0100, L501.9520, L502.0250, L503.0106, L500.4050, L503.6030, L503.6550 #### [facility] [address] [place], [address] Monocytes/100 WBC (Bld) 7.0 % Normal 0-10 [facility] Comment on above: Performed By: #### L 100.0100, L501.9520, L502.0250, L503.0106, L500.4050, L503.6030, L503.6550 #### [facility] [address] [place], [address] Neutrophils/100 WBC (Bld) 74.3 % High 47-70 [facility] Comment on above: Performed By: #### L 100.0100, L501.9520, L502.0250, L503.0106, L500.4050, L503.6030, L503.6550 #### [facility] [address] [place], [address] Nucleated RBC (Bld) [#/Vol] 0 10*3/uL Normal 0-5 [facility] Comment on above: Performed By: #### L 100.0100, L501.9520, L502.0250, L503.0106, L500.4050, L503.6030, L503.6550 #### [facility] [address] [place], [address] Platelet mean volume (Bld) [Entitic vol] 11.8 fL Normal 6.2-12.0 [facility] Comment on above: Performed By: #### L 100.0100, L501.9520, L502.0250, L503.0106, L500.4050, L503.6030, L503.6550 #### [facility] [address] [place], [address] Platelets (Bld) [#/Vol] 148 10*3/uL Low 150-450 [facility] Comment on above: Performed By: #### L 100.0100, L501.9520, L502.0250, L503.0106, L500.4050, L503.6030, L503.6550 #### [facility] [address] [place], [address] RBC (Bld) [#/Vol] 4.08 10*6/uL Low 4.2-5.4 [facility] Comment on above: Performed By: #### L 100.0100, L501.9520, L502.0250, L503.0106, L500.4050, L503.6030, L503.6550 #### [facility] [address] [place], [address] RDW SD 48.0 fl High 35.1-43.9 [facility] Comment on above: Performed By: #### L 100.0100, L501.9520, L502.0250, L503.0106, L500.4050, L503.6030, L503.6550 #### [facility] [address] [place], [place], [phone] (415) WBC (Bld) [#/Vol] 5.2 10*3/uL Normal 4.4-11.0 [facility] Comment on above: Performed By: #### L 100.0100, L501.9520, L502.0250, L503.0106, L500.4050, L503.6030, L503.6550 #### [facility] [address] [place], [place], [phone] Carbon dioxide measurementOr dered By: eDsiree Tapia on 04-01-2024 CO2 [Moles/Vol] 25.0 mmol/L 21.0-32.0 [facility] Chloride measurementOrdered By: Desiree Tapia on 04-01-2024 Chloride [Moles/Vol] 108 mmol/L High 98-107 [facility] Comprehensive Metabolic Prof ilon 04-01-2024 Albumin [Mass/Vol] 3.3 g/dL Normal 3.2-5.0 [facility] Comment on above: Performed By: #### L 100.0100, L501.9520, L502.0250, L503.0106, L500.4050, L503.6030, L503.6550 #### [facility] [address] [place], [address] Albumin/Globulin [Mass ratio] 0.7 {ratio} Low 0.9-2.4 [facility] Comment on above: Performed By: #### L 100.0100, L501.9520, L502.0250, L503.0106, L500.4050, L503.6030, L503.6550 #### [facility] [address] [place], [address] ALK P 129 U/L High 45-117 [facility] Comment on above: Performed By: #### L 100.0100, L501.9520, L502.0250, L503.0106, L500.4050, L503.6030, L503.6550 #### [facility] [address] [place], [address] ALT [Catalytic activity/Vol] 35 U/L Normal 13-56 [facility] Comment on above: Performed By: #### L 100.0100, L501.9520, L502.0250, L503.0106, L500.4050, L503.6030, L503.6550 #### [facility] [address] [place], [address] AST [Catalytic activity/Vol] 37 U/L Normal 15-37 [facility] Comment on above: Performed By: #### L 100.0100, L501.9520, L502.0250, L503.0106, L500.4050, L503.6030, L503.6550 #### [facility] [address] [place], [address] Bilirubin [Mass/Vol] 0.50 mg/dL Normal 0.20-1.00 [facility] Comment on above: Result Comment: For patients on eltrombopag therapy, use of Dimension [place] TBIL is not recommended. Performed By: #### L 100.0100, L501.9520, L502.0250, L503.0106, L500.4050, L503.6030, L503.6550 #### [facility] [address] [place], [address] BUN/CRE 17.4 RATIO Normal 10-20 [facility] Comment on above: Performed By: #### L 100.0100, L501.9520, L502.0250, L503.0106, L500.4050, L503.6030, L503.6550 #### [facility] [address] [place], [address] CA,Total 9.4 mg/dL Normal 8.5-10.1 [facility] Comment on above: Performed By: #### L 100.0100, L501.9520, L502.0250, L503.0106, L500.4050, L503.6030, L503.6550 #### [facility] [address] [place], [address] Chloride [Moles/Vol] 108 mmol/L High 98-107 [facility] Comment on above: Performed By: #### L 100.0100, L501.9520, L502.0250, L503.0106, L500.4050, L503.6030, L503.6550 #### [facility] [address] [place], [address] CO2 [Moles/Vol] 25.0 mmol/L Normal 21.0-32.0 [facility] Comment on above: Performed By: #### L 100.0100, L501.9520, L502.0250, L503.0106, L500.4050, L503.6030, L503.6550 #### [facility] [address] [place], [address] Creatinine [Mass/Vol] 1.32 mg/dL High 0.55-1.02 [facility] Comment on above: Result Comment: The validity of the calculated GFR GFRAA in patients over 70 years has not been determined. Clinical correlation is essential. Performed By: #### L 100.0100, L501.9520, L502.0250, L503.0106, L500.4050, L503.6030, L503.6550 #### [facility] [address] [place], [address] EST GFR - AA 50 mL/min Low >60 [facility] Comment on above: Result Comment: Afri can Chinese GFR Calc Performed By: #### L 100.0100, L501.9520, L502.0250, L503.0106, L500.4050, L503.6030, L503.6550 #### [facility] [address] [place], [place], [phone]) GAP 6 Normal 5-15 [facility] Comment on above: Performed By: #### L 100.0100, L501.9520, L502.0250, L503.0106, L500.4050, L503.6030, L503.6550 #### [facility] [address] [place], [place], [phone] (407) GFR/1.73 sq M.predicted among non-blacks MDRD (S/P/Bld) [Vol rate/Area] 41 mL/min/{1.73_m2} Low >60 [facility] Comment on above: Result Comment: Non- GFR Calc Performed By: #### L 100.0100, L501.9520, L502.0250, L503.0106, L500.4050, L503.6030, L503.6550 #### [facility] [address] [place], [place], [phone] (024) Globulin (S) [Mass/Vol] 4.7 g/dL High 2.2-4.2 [facility] Comment on above: Performed By: #### L 100.0100, L501.9520, L502.0250, L503.0106, L500.4050, L503.6030, L503.6550 #### [facility] [address] [place], [address] Glucose [Mass/Vol] 163 mg/dL High 74-106 [facility] Comment on above: Result Comment: Fast ing Glucose result greater than or equal to 126 mg/dL suggests DIABETES MELLITUS per A.D.A. criteria. Performed By: #### L 100.0100, L501.9520, L502.0250, L503.0106, L500.4050, L503.6030, L503.6550 #### [facility] [address] [place], [address] Potassium [Moles/Vol] 4.5 mmol/L Normal 3.5-5.1 [facility] Comment on above: Performed By: #### L 100.0100, L501.9520, L502.0250, L503.0106, L500.4050, L503.6030, L503.6550 #### [facility] [address] [place], [address] Sodium [Moles/Vol] 140 mmol/L Normal 136-145 [facility] Comment on above: Performed By: #### L 100.0100, L501.9520, L502.0250, L503.0106, L500.4050, L503.6030, L503.6550 #### [facility] [address] [place], [address] T PROT 8.0 g/dL Normal 6.4-8.2 [facility] Comment on above: Performed By: #### L 100.0100, L501.9520, L502.0250, L503.0106, L500.4050, L503.6030, L503.6550 #### [facility] [address] [place], [address] Urea nitrogen [Mass/Vol] 23 mg/dL High 7-18 [facility] Comment on above: Performed By: #### L 100.0100, L501.9520, L502.0250, L503.0106, L500.4050, L503.6030, L503.6550 #### [facility] [address] [place], [place], [id number] Eosinophil percentageOrdered By: Desiree Tapia on 04-01-2024 Eosinophils/100 WBC (Bld) 2.7 % 0-5 [facility] Erythrocyte distribution wid th ratioOrdered By: Desiree Tapia on 04-01-2024 Erythrocyte distribution width (RBC) [Ratio] 14.0 % 11.6-14.6 [facility] Erythrocyte distribution wid th standard deviationOrdered By: Desiree Tapia on 04-01-2024 Erythrocyte distribution width (RBC) [Entitic vol] 48.0 fL High 35.1-43.9 [facility] Erythrocyte distribution width (RBC) [Ratio] 48.0 fl High 35.1-43.9 [facility] Estimated glomerular filtrat ion rate (GFR) AmericanOrdered By: Desiree Tapia on 04-01-2024 Estimated GFR (MDRD) Amer 50 mL/min Low >60 [facility] Comment on above: GFR Calc Ferritinon 04-01-2024 Ferritin [Mass/Vol] 34 ng/mL Normal [facility] Comment on above: Performed By: #### L 100.0100, L501.9520, L502.0250, L503.0106, L500.4050, L503.6030, L503.6550 #### [facility] [address] [place], [place], [id number] Ferritin measurementOrdered By: Desiree Tapia on 04-01-2024 Ferritin [Mass/Vol] 34 ng/mL [facility] Glomerular filtration rate ( GFR) estimationOrdered By: Desiree Tapia on 04-01-2024 Estimated GFR (MDRD) Non-Af Amer 41 mL/min Low >60 [facility] Comment on above: Non- GFR Calc GFR/1.73 sq M.predicted among non-blacks MDRD (S/P/Bld) [Vol rate/Area] 41 mL/min/{1.73_m2} Low >60 [facility] Comment on above: Non- GFR Calc Glucose measurementOrdered B y: Desiree Tapia on 04-01-2024 Glucose [Mass/Vol] 163 mg/dL High 74-106 [facility] Comment on above: Fasting Glucose resu lt greater than or equal to 126 mg/dL suggests DIABETES MELLITUS per A.D.A. criteria. Hematocrit Auto (Bld) [Volum e fraction]Ordered By: Desiree Tapia on 04-01-2024 Hematocrit (Bld) [Volume fraction] 38.4 % 37-47 [facility] Hemoglobin measurementOrdere d By: Desiree Tapia on 04-01-2024 Hemoglobin (Bld) [Mass/Vol] 12.5 g/dL 12.0-15.0 [facility] Immature granulocytes/100 WB C Auto (Bld)Ordered By: Desiree Tapia on 04-01-2024 Immature granulocytes/100 WBC (Bld) 0.200 % 0.0-0.9 [facility] Comment on above: IG% - Immature Granu locytes (promyelocytes, myelocytes and metamyelocytes) > 1% indicates that a LEFT SHIFT is Present. Iron (Unsp spec) [Mass/Mass] Ordered By: Desiree Tapia on 04-01-2024 Iron [Mass/Vol] 53 ug/dL 50-170 [facility] Iron measurement (mass/mass) Ordered By: Desiree Tapia on 04-01-2024 Iron (Unsp spec) [Mass/Mass] 53 ug/dL 50-170 [facility] Iron saturation [Mass fracti on]Ordered By: Desiree Tapia on 04-01-2024 Iron Saturation 15.2 % 15.0-55.0 [facility] Iron+Iron Binding Capacityon 04-01-2024 Iron [Mass/Vol] 53 ug/dL Normal 50-170 [facility] Comment on above: Performed By: #### L 100.0100, L501.9520, L502.0250, L503.0106, L500.4050, L503.6030, L503.6550 #### [facility] [address] [place], [place], [id number] IRON SATURATION 15.2 Normal 15.0-55.0 [facility] Comment on above: Performed By: #### L 100.0100, L501.9520, L502.0250, L503.0106, L500.4050, L503.6030, L503.6550 #### [facility] [address] [place], [place], [id number] TIBC 348 ug/dL Normal 250-450 [facility] Comment on above: Performed By: #### L 100.0100, L501.9520, L502.0250, L503.0106, L500.4050, L503.6030, L503.6550 #### [facility] [address] [place], [place], [id number] Laboratory - Chemistry and C hemistry - challengeOrdered By: Desiree Tapia on 04-01-2024 AST [Catalytic activity/Vol] 37 U/L 15-37 [facility] Lymphocytes Auto (Unsp spec) [#/Vol]Ordered By: Desiree Tapia on 04-01-2024 Lymphocytes (Bld) [#/Vol] 0.75 10*3/uL Low 0.83-4.51 [facility] Lymphocytes/100 WBC Auto (Un sp spec)Ordered By: Desiree Tapia on 04-01-2024 Lymphocytes/100 WBC (Bld) 14.6 % Low 19-41 [facility] MCV (mean corpuscular volume ) determinationOrdered By: Desiree Tapia on 04-01-2024 MCV (RBC) [Entitic vol] 94.1 fL 81-99 [facility] Mean corpuscular hemoglobin (MCH) determinationOrdered By: Desiree Tapia on 04-01-2024 MCH (RBC) [Entitic mass] 30.6 pg 27.0-32.0 [facility] Mean corpuscular hemoglobin concentration (MCHC) determinationOrdered By: Desiree Tapia on 04-01-2024 MCHC (RBC) [Mass/Vol] 32.6 g/dL 32-36 [facility] Mean platelet volume determi nationOrdered By: Desiree Tapia on 04-01-2024 Platelet mean volume (Bld) [Entitic vol] 11.8 fL 6.2-12.0 [facility] Monocyte percentageOrdered B y: Desiree Tapia on 04-01-2024 Monocytes/100 WBC (Bld) 7.0 % 0-10 [facility] Neutrophil percentageOrdered By: Desiree Tapia on 04-01-2024 Neutrophils/100 WBC (Bld) 74.3 % High 47-70 [facility] Nucleated red blood cell per centageOrdered By: Desiree Tapia on 04-01-2024 Nucleated RBC/100 WBC (Bld) [Ratio] 0 % 0-5 [facility] Platelet countOrdered By: Lasha Tapia on 04-01-2024 Platelets (Bld) [#/Vol] 148 10*3/uL Low 150-450 [facility] Potassium measurementOrdered By: Desiree Tapia on 04-01-2024 Potassium [Moles/Vol] 4.5 mmol/L 3.5-5.1 [facility] RBC Auto (Bld) [#/Vol]Ordere d By: Desiree Tapia on 04-01-2024 RBC (Bld) [#/Vol] 4.08 10*6/uL Low 4.2-5.4 [facility] Serum anion gap measurementO rdered By: Desiree Tapia on 04-01-2024 Anion gap [Moles/Vol] 6 mmol/L 5-15 [facility] Serum globulin measurementOr dered By: Desiree Tapia on 04-01-2024 Globulin (S) [Mass/Vol] 4.7 g/dL High 2.2-4.2 [facility] Serum or plasma alanine mao otransferase (ALT) measurementOrdered By: Desiree Tapia on 04-01-2024 ALT [Catalytic activity/Vol] 35 U/L 13-56 [facility] Serum or plasma albumin nick urement (mass/volume)Ordered By: Desiree Tapia on 04-01-2024 Albumin [Mass/Vol] 3.3 g/dL 3.2-5.0 [facility] Serum or plasma alkaline kathleen sphatase measurementOrdered By: Desiree Tapia on 04-01-2024 ALP [Catalytic activity/Vol] 129 U/L High 45-117 [facility] Serum or plasma calcium nick urement (mass/volume)Ordered By: Desiree Tapia on 04-01-2024 Calcium [Mass/Vol] 9.4 mg/dL 8.5-10.1 [facility] Serum or plasma creatinine m easurement (mass/volume)Ordered By: Desiree Tapia on 04-01-2024 Creatinine [Mass/Vol] 1.32 mg/dL High 0.55-1.02 [facility] Comment on above: The validity of the calculated GFR & GFRAA in patients over 70 years has not been determined. Clinical correlation is essential. Serum or plasma iron saturat ion measurement (mass fraction)Ordered By: Desiree Tapia on 04-01-2024 Iron saturation [Mass fraction] 15.2 % 15.0-55.0 [facility] Serum or plasma thyroid stim ulating hormone (TSH) measurement (units/volume)Ordered By: Desiree Tapia on 04-01-2024 TSH Qn 3.250 uIU/mL 0.358-3.74 0 [facility] Serum or plasma urea nitroge n measurement (mass/volume)Ordered By: Desiree Tapia on 04-01-2024 Urea nitrogen [Mass/Vol] 23 mg/dL High 7-18 [facility] Sodium levelOrdered By: Alvina Tapia on 04-01-2024 Sodium [Moles/Vol] 140 mmol/L 136-145 [facility] TIBCOrdered By: Desiree harvey on 04-01-2024 Total Iron Binding Capacity 348 ug/dL 250-450 [facility] TSH QnOrdered By: Desiree uribe on 04-01-2024 Thyroid Stimulating Hormone (TSH) 3.250 uIU/mL 0.358-3.74 0 [facility] Thyroid Stim Hormone (TSH)on 04-01-2024 TSH 3.250 uIU/mL Normal 0.358-3.74 0 [facility] Comment on above: Performed By: #### L 100.0100, L501.9520, L502.0250, L503.0106, L500.4050, L503.6030, L503.6550 #### [facility] [address] [place], [place], [address] Total proteinOrdered By: Hermes Tapia on 04-01-2024 Protein [Mass/Vol] 8.0 g/dL 6.4-8.2 [facility] Vitamin B12on 04-01-2024 Cobalamin (Vitamin B12) [Mass/Vol] 550 pg/mL Normal 211-911 [facility] Comment on above: Performed By: #### L 100.0100, L501.9520, L502.0250, L503.0106, L500.4050, L503.6030, L503.6550 #### [facility] [address] [place], [place], [id number] Vitamin B12 measurementOrder ed By: Desiree Tapia on 04-01-2024 Cobalamin (Vitamin B12) [Mass/Vol] 550 pg/mL 211-911 [facility] White blood cell (WBC) count Ordered By: Desiree Tapia on 04-01-2024 WBC (Bld) [#/Vol] 5.2 10*3/uL 4.4-11.0 [facility] Neurology Visit Reporton Neurology Visit Report [facility] [address], [address] [place], [place] [id number] OFFICE VISIT Date of Service: 03/22/24 MR#: [id number] Acct: [id number] Name: SANDIE ANGELES DAWSON Rep #: [id number] : 1945 Provider: Dr. Surendra vergara MD Age/Sex: 78/F [place] [facility] [place]: Signed HPI HPI Chief Complaint: Fatigue, [...] the eye directly. She has seen an drill press tender. She was treated with a course of [...] in the toes. She takes acetaminophen and svia-lfc-xgyqhvg ibuprofen once or twice daily and this [...] however the patient did not see a funeral arrangement director. Right ankle x-rays revealed mild soft tissue [...] her martin (more content not included)... Normal [facility] Urine Cultureon 01-13-2024 URC Klebsiella pneumonia e sp pneum [place] Count >100,000 Klebsiella pneumoniae sp pneum: REACTION [...] TMP SMX Islt BRISSA <=20 S Normal [facility] Comment on above: Performed By: #### L 100.0100, L501.9520, L502.0250, L503.0106, L500.4050, L503.6030, L503.6550 #### [facility] [address] [place], [address] Urine cultureOrdered By: Hermes Tapia on 01-11-2024 Bacteria identified Cx Nom (U) Klebsiella pneumoniae sp pneum Abnormal [facility] Bacteria identified Cx Nom (U) Klebsiella pneumoniae sp pneum Abnormal [facility] Bedside Glucoseon 01-04-2024 FINGERSTICK GLU 99 mg/dL Normal 74-106 [facility] Comment on above: Result Comment: TORY HANDENT OF PATIENT CARE PER NURSING PROTOCOL Performed By: #### L 100.0100, L501.9520, L502.0250, L503.0106, L500.4050, L503.6030, L503.6550 #### [facility] [address] [place], [address] EGD Reporton 01-04-2024 EGD Report [facility] Medical Records Department [address] [place] [address] EGD Report MR#: [id number] Acct: [id number] Name: SANDIE ANGELES DAWSON Rep #: [id number] : 1945 78 From: Moyisidro Ramos DO PCP: Dr. Desiree Tapia MD Status:[facility] Patient Name: Sandie Angeles Procedure Date: 01/04/2024 8:12 AM Date of : 1945 Age: 78 Procedure: Upper GI endoscopy Indications: Iron deficiency anemia, Dysphagia Providers: DO Chely Tellez MD: Desiree Tapia Medicines: Monitored Anesthesia Care [...] 12 weeks. Procedure Code(s): --- Professional --- 41585, 59, Esophagogastroduodenoscopy, flexible, transoral; with control of bleeding, any method 47555, 51, Esophagogastroduodenoscopy, flexible, transoral; with biopsy, single or multiple CPT copyright 2021 [employer]. All rights reserved. The codes documented in this report are preliminary and upon flake miller wheat [employer] oats review may be revised to meet current compliance requirements. Moy Ramos, 01/04/2024 8:3 (more content not included)... Normal [facility] de[facility]dered By: Moy Ramos on 01-04-2024 Bedside Glucose (Misc Panel) 99 mg/dL 74-106 [facility] Comment on above: MANAGEMENT OF PATIEN T CARE PER NURSING PROTOCOL H Pylori (initial)on 024 H Pylori (initial) -------- -------- Patient Age/Sex Location Account Attending Physician -------- SANDIE ANGELES 78/F EN [id number] Moy Ramos DO -------- Specimen: [id number] Received: 01/04/24 Status: EDIS Babcock Num: [id number] Spec Type: IMMUNO Subm Dr: Moy Ramos DO PHYSICIAN INSTITUTION [place] [address] SPECIMEN INFORMATION: Tissue Source: B- Gastric body biopsy Clinical Info: Anemia, dysphagia Specimen Number: [id number] CPT code: 55362 METHODOLOGY: Deparaffinized sections of prefer/formalin-fixed tissue or PAP/DQ stained slides are incubated with monoclonal/polyclonal antibodies/oligonucleotide probes. Localization is made via biotin free immunoperoxidase method. Appropriate controls are performed and reacted as expected. Results on target cell population are indicated in the following table: RESULTS: ANTIBODY / CLONE RESULT Block B H Pylori (polyclonal) negative These tests were developed and their performance characteristics determined by [facility]. They may not have been cleared or approved by the U.S. Food and Drug Administration. The FDA has determined that such clearance or approval is not necessary. The above immunohistochemical/dualISH markers are ordered and reviewed by the Pathologist. INTERPRETATION: B. Gastric body, biopsy: Negative for Helicobacter pylori organisms. AM. 01/05/2024 Signed (signature on file) Dr. Matt Zaman DO 01/05/24 1412 -------- Normal [facility] Comment on above: Performed By: #### L 100.0100, L501.9520, L502.0250, L503.0106, L500.4050, L503.6030, L503.6550 #### [facility] [address] [place], [address] MR/POSTOP.Lissa 01-04-2024 MR/POSTOP.[facility] Medical Records Department [address] [place] [address] Anesthesia Postop Eval I 01/04/24 0832 MR#: [id number] Acct: [id number] Name: SANDIE ANGELES DAWSON Rep #: [id number] : 1945 78 From: Stanislav Altamirano PCP: Dr. Desiree Tapia MD Status:REG SDC Y Race: C Location: [place] [address] Anesthesia: Postop Eval I Current Vital Signs [...] Stanislav Chauhan Signature: Date CC: Signed Normal [facility] MR/[id number] 01-04-2024 MR/POSTOPAN2 [facility] Medical Records Department [address] [facility] [place] [address] Anesthesia Postop Eval II 01/04/24921 MR#: [id number] Acct: [id number] Name: SNADIE ANGELES Rep #: [id number] : 1945 78 From: Marcus Jo MD PCP: Dr. Desiree Tapia MD Status:[facility] Y Race: C Location: EN Anesthesia Postop [...] Marcus Chauhan Signature: Date CC: Signed Normal [facility] Surgery Specimen Level Kelby 01-04-2024 Surgery Specimen Level IV -------- Patient Age/Sex Location Account Attending Physician -------- SANDIE ANGELES 78/F EN [id number] Moy Ramos DO -------- Specimen: [id number] Received: 01/04/24 Status: EDIS Babcock Num: [id number] Spec Type: EGD BIOPSY Subm Dr: Moy Ramos, HEAD OPERATION: EGD with biopsy, hemostasis PRE-OP DIAGNOSIS: Anemia, dysphagia TISSUE SUBMITTED: A- Duodenum biopsy, B- Gastric body biopsy -------- MICROSCOPIC DIAGNOSIS A. Duodenum, biopsy: Minimal non-specific chronic inflammation. B. Gastric body, biopsy: Chronic inflammation. See comment. AM. 01/05/2024 COMMENT B. The results of immunohistochemistry for Helicobacter pylori will be reported separately ([id number]). MICROSCOPIC DESCRIPTION Slides are reviewed. GROSS DESCRIPTION [...] submitted in one cassette. AM. 01/04/2024 TC:3 [facility]:[id number] -------- Patient Age/Sex Location Account Attending Physician -------- SANDIE ANGELES 78/F EN [id number] Moy Ramos DO -------- Signed (signature on file) Dr. Matt Zaman DO 01/05/24 1410 -------- Normal [facility] Comment on above: Performed By: #### L 100.0100, L501.9520, L502.0250, L503.0106, L500.4050, L503.6030, L503.6550 #### [facility] [address] [place] [address]. [place], [address] Absolute lymphocyte countOrd ered By: Dr. Tapia on 05-20-2022 Lymphocytes Auto (Unsp spec) [#/Vol] 0.99 10*3/uL 0.83-4.51 [facility] Basophil percentageOrdered B y: Dr. Tapia on 05-20-2022 Basophils/100 WBC (Bld) 1.0 % 0-1 [facility] Chloride [Moles/Vol] 111 mmol/L 98-107 [facility] Eosinophils/100 WBC (Bld) 3.4 % 0-5 [facility] Glucose [Mass/Vol] 67 mg/dL 74-106 [facility] Neutrophils (Bld) [#/Vol] 4.3 10*3/uL 2.0-7.7 [facility] Neutrophils/100 WBC (Bld) 69.9 % 47-70 [facility] Potassium [Moles/Vol] 4.3 mmol/L 3.5-5.1 [facility] Sodium [Moles/Vol] 141 mmol/L 136-145 [facility] WBC (Bld) [#/Vol] 6.2 10*3/uL 4.4-11.0 [facility] Blood erythrocytes count (nu mber/volume)Ordered By: Dr. Tapia on 05-20-2022 RBC (Bld) [#/Vol] 3.74 10*6/uL 4.2-5.4 [facility] Blood hemoglobin measurement (mass/volume)Ordered By: Dr. Tapia on 05-20-2022 Hemoglobin (Bld) [Mass/Vol] 11.5 g/dL 12.0-15.0 [facility] Blood lymphocytes/100 leukoc ytesOrdered By: Dr. Tapia on 05-20-2022 Lymphocytes/100 WBC (Bld) 16.0 % 19-41 [facility] Blood monocytes/100 leukocyt esOrdered By: Dr. Tapia on 05-20-2022 Monocytes/100 WBC (Bld) 9.2 % 0-10 [facility] Blood platelet mean volumeOr dered By: Dr. Tapia on 05-20-2022 Platelet mean volume (Bld) [Entitic vol] 11.7 fL 6.2-12.0 [facility] Determination of erythrocyte mean corpuscular volume (MCV)Ordered By: Dr. Tapia on 05-20-2022 MCV (RBC) [Entitic vol] 97.1 fL 81-99 [facility] Hematocrit Auto (Bld) [Volum e fraction]Ordered By: Dr. Tapia on 05-20-2022 Hematocrit (Bld) [Volume fraction] 36.3 % 37-47 [facility] - Chemistry and C hemistry - challengeOrdered By: Dr. Tapia on 05-20-2022 CO2 [Moles/Vol] 20.0 mmol/L 21.0-32.0 [facility] Cobalamin (Vitamin B12) [Mass/Vol] 442 pg/mL 211-911 [facility] Urea nitrogen/Creatinine [Mass ratio] 21.3 mg/mg 10-20 [facility] - Hematology and Cell countsOrdered By: Dr. Tapia on 05-20-2022 Erythrocyte distribution width (RBC) [Entitic vol] 49.1 fL 35.1-43.9 [facility] Erythrocyte distribution width (RBC) [Ratio] 13.8 % 11.6-14.6 [facility] Immature granulocytes/100 WBC (Bld) 0.500 % 0.0-0.9 [facility] Comment on above: IG% - Immature Granu locytes (promyelocytes, myelocytes and metamyelocytes) > 1% indicates that a LEFT SHIFT is Present. MCH (RBC) [Entitic mass] 30.7 pg 27.0-32.0 [facility] Nucleated RBC/100 WBC (Bld) [Ratio] 0 % 0-5 [facility] MCHC Auto (RBC) [Mass/Vol]Or dered By: Dr. Tapia on 05-20-2022 MCHC (RBC) [Mass/Vol] 31.7 g/dL 32-36 [facility] No Panel InformationOrdered By: Dr. Tapia on 05-20-2022 Estimated GFR (MDRD) Amer 55 mL/min >60 [facility] Comment on above: GFR Calc Estimated GFR (MDRD) Non-Af Amer 45 mL/min >60 [facility] Comment on above: Non- GFR Calc Thyroid Stimulating Hormone (TSH) 5.28 uIU/mL 0.358-3.74 [facility] Platelets bldOrdered By: Dr. Tapia on 05-20-2022 Platelets (Bld) [#/Vol] 161 10*3/uL 150-450 [facility] Serum or plasma calcium nick urement (mass/volume)Ordered By: Dr. Tapia on 05-20-2022 Calcium [Mass/Vol] 8.9 mg/dL 8.5-10.1 [facility] Serum or plasma creatinine m easurement (mass/volume)Ordered By: Dr. Tapia on 05-20-2022 Creatinine [Mass/Vol] 1.22 mg/dL 0.55-1.02 [facility] Comment on above: The validity of the calculated GFR & GFRAA in patients over 70 years has not been determined. Clinical correlation is essential. Serum or plasma urea nitroge n measurement (mass/volume)Ordered By: Dr. Tapia on 05-20-2022 Urea nitrogen [Mass/Vol] 26 mg/dL 7-18 [facility] Thin prep Papanicolaou smear with manual screeningOrdered By: Dr. Tapia on 05-20-2022 Thin prep Papanicolaou smear with manual screening 10 5-15 [facility] Whole blood hemoglobin A1c/t otal hemoglobin ratio (mass fraction)Ordered By: Dr. Tapia on 05-20-2022 HbA1c (Bld) [Mass fraction] 6.4 % 3.8-5.6 [facility] Comment on above: Normal < 5.7 % Predi abetic 5.7 - 6.4 % Diabetic >or= 6.5 % Please note range changes. Basophil percentageOrdered B y: Dr. Hidalgo on 02-25-2022 Bilirubin [Mass/Vol] 0.60 mg/dL 0.20-1.00 [facility] Comment on above: For patients on eltr ombopag therapy, use of Dimension [place] TBIL is not recommended. Chloride [Moles/Vol] 113 mmol/L 98-107 [facility] Glucose [Mass/Vol] 59 mg/dL 74-106 [facility] Potassium [Moles/Vol] 4.1 mmol/L 3.5-5.1 [facility] Protein [Mass/Vol] 7.4 g/dL 6.4-8.2 [facility] Sodium [Moles/Vol] 143 mmol/L 136-145 [facility] WBC (Bld) [#/Vol] 3.9 10*3/uL 4.4-11.0 [facility] Blood erythrocytes count (nu mber/volume)Ordered By: Dr. Hidalgo on 02-25-2022 RBC (Bld) [#/Vol] 3.81 10*6/uL 4.2-5.4 [facility] Blood hemoglobin measurement (mass/volume)Ordered By: Dr. Hidalgo on 02-25-2022 Hemoglobin (Bld) [Mass/Vol] 11.6 g/dL 12.0-15.0 [facility] Blood platelet mean volumeOr dered By: Dr. Hidalgo on 02-25-2022 Platelet mean volume (Bld) [Entitic vol] 11.5 fL 6.2-12.0 [facility] Determination of erythrocyte mean corpuscular volume (MCV)Ordered By: Dr. Hidalgo on 02-25-2022 MCV (RBC) [Entitic vol] 94.5 fL 81-99 [facility] Hematocrit Auto (Bld) [Volum e fraction]Ordered By: Dr. Hidalgo on 02-25-2022 Hematocrit (Bld) [Volume fraction] 36.0 % 37-47 [facility] - Chemistry and C hemistry - challengeOrdered By: Dr. Hidalgo on 02-25-2022 ALP [Catalytic activity/Vol] 120 U/L 45-117 [facility] ALT [Catalytic activity/Vol] 37 U/L 13-56 [facility] CO2 [Moles/Vol] 24.0 mmol/L 21.0-32.0 [facility] Cobalamin (Vitamin B12) [Mass/Vol] 428 pg/mL 211-911 [facility] Globulin (S) [Mass/Vol] 4.1 g/dL 2.2-4.2 [facility] Urea nitrogen/Creatinine [Mass ratio] 15.9 mg/mg 10-20 [facility] Laboratory - Hematology and Cell countsOrdered By: Dr. Hidalgo on 02-25-2022 Erythrocyte distribution width (RBC) [Entitic vol] 45.1 fL 35.1-43.9 [facility] Erythrocyte distribution width (RBC) [Ratio] 13.1 % 11.6-14.6 [facility] MCH (RBC) [Entitic mass] 30.4 pg 27.0-32.0 [facility] MCHC Auto (RBC) [Mass/Vol]Or dered By: Dr. Hidalgo on 02-25-2022 MCHC (RBC) [Mass/Vol] 32.2 g/dL 32-36 [facility] No Panel InformationOrdered By: Dr. Hidalgo on 02-25-2022 Estimated GFR (MDRD) Amer 64 mL/min >60 [facility] Comment on above: GFR Calc Estimated GFR (MDRD) Non-Af Amer 53 mL/min >60 [facility] Comment on above: Non- GFR Calc Free Lambda Light Chains, Quant 40.0 mg/L 5.7-26.3 [facility] Thyroid Stimulating Hormone (TSH) 3.78 uIU/mL 0.358-3.74 [facility] Whole Blood Vitamin B1 Level 93.0 nmol/L 66.5-200.0 [facility] Comment on above: Performed at: [address] [id number] Director: Grant Baires PhD, Phone: [phone] at: - [facility] [id number] Director: Kota Wallace MD, Phone: [phone] Platelets bldOrdered By: Dr. Hidalgo on 02-25-2022 Platelets (Bld) [#/Vol] 131 10*3/uL 150-450 [facility] Serum immunoglobulin kappa l ight chains/immunoglobulin lambda light chains mass ratioOrdered By: Dr. Hidalgo on 02-25-2022 Immunoglobulin light chains.kappa/Immunoglo bulin light chains.lambda (S) [Mass ratio] 1.75 0.26-1.65 [facility] Serum or plasma albumin nick urement (mass/volume)Ordered By: Dr. Hidalgo on 02-25-2022 Albumin [Mass/Vol] 3.3 g/dL 3.2-5.0 [facility] Serum or plasma albumin/glob ulin mass ratioOrdered By: Dr. Hidalgo on 02-25-2022 Albumin/Globulin [Mass ratio] 0.8 {ratio} 0.9-2.4 [facility] Serum or plasma calcium nick urement (mass/volume)Ordered By: Dr. Hidalgo on 02-25-2022 Calcium [Mass/Vol] 8.8 mg/dL 8.5-10.1 [facility] Serum or plasma creatinine m easurement (mass/volume)Ordered By: Dr. Hidalgo on 02-25-2022 Creatinine [Mass/Vol] 1.07 mg/dL 0.55-1.02 [facility] Comment on above: The validity of the calculated GFR & GFRAA in patients over 70 years has not been determined. Clinical correlation is essential. Serum or plasma folate measu rement (mass/volume)Ordered By: Dr. Hidalgo on 02-25-2022 Folate [Mass/Vol] 13.50 ng/mL 3.1-55.4 [facility] Serum or plasma immunoglobul in kappa light chains measurement (mass/volume)Ordered By: Dr. Hidalgo on 02-25-2022 Immunoglobulin light chains.kappa [Mass/Vol] 69.8 mg/L 3.3-19.4 [facility] Serum or plasma urea nitroge n measurement (mass/volume)Ordered By: Dr. Hidalgo on 02-25-2022 Urea nitrogen [Mass/Vol] 17 mg/dL 7-18 [facility] Thin prep Papanicolaou smear with manual screeningOrdered By: Dr. Hidalgo on 02-25-2022 Thin prep Papanicolaou smear with manual screening 35 U/L 15-37 [facility] Thin prep Papanicolaou smear with manual screening 6 5-15 [facility] Basophil percentageOrdered B y: Dr. Arceo on 01-30-2022 Bilirubin [Mass/Vol] 0.50 mg/dL 0.20-1.00 [facility] Comment on above: For patients on eltr ombopag therapy, use of Dimension [place] TBIL is not recommended. Chloride [Moles/Vol] 110 mmol/L 98-107 [facility] Glucose [Mass/Vol] 125 mg/dL 74-106 [facility] Comment on above: Fasting Glucose resu lt from 100 to 125 mg/dL suggests IMPAIRED HOMEOSTASIS per A.D.A. criteria. Potassium [Moles/Vol] 4.4 mmol/L 3.5-5.1 [facility] Protein [Mass/Vol] 8.1 g/dL 6.4-8.2 [facility] Sodium [Moles/Vol] 141 mmol/L 136-145 [facility] Erythrocyte sedimentation ra teOrdered By: Dr. Arceo on 01-30-2022 ESR (Bld) [Velocity] 31 mm/h 0-30 [facility] Laboratory - Chemistry and C hemistry - challengeOrdered By: Dr. Arceo on 01-30-2022 ALP [Catalytic activity/Vol] 116 U/L 45-117 [facility] ALT [Catalytic activity/Vol] 43 U/L 13-56 [facility] CO2 [Moles/Vol] 25.0 mmol/L 21.0-32.0 [facility] Globulin (S) [Mass/Vol] 4.7 g/dL 2.2-4.2 [facility] Urea nitrogen/Creatinine [Mass ratio] 15.9 mg/mg 10-20 [facility] No Panel InformationOrdered By: Dr. Arceo on 01-30-2022 Estimated GFR (MDRD) Amer 64 mL/min >60 [facility] Comment on above: GFR Calc Estimated GFR (MDRD) Non-Af Amer 53 mL/min >60 [facility] Comment on above: Non- GFR Calc Serum or plasma C reactive p rotein measurement (mass/volume)Ordered By: Dr. Arceo on 01-30-2022 CRP [Mass/Vol] mg/L 0.0-3.0 [facility] Comment on above: C-Reactive Protein ( CRP) provides useful information for thediagnosis, therapy and monitoring of inflammatory processesand associated diseases. For the evaluation of Relative Riskfor Cardiovascular Disease, a High Sensitivity CRP (HSCRP)should be ordered. Serum or plasma albumin nick urement (mass/volume)Ordered By: Dr. Arceo on 01-30-2022 Albumin [Mass/Vol] 3.4 g/dL 3.2-5.0 [facility] Serum or plasma albumin/glob ulin mass ratioOrdered By: Dr. Arceo on 01-30-2022 Albumin/Globulin [Mass ratio] 0.7 {ratio} 0.9-2.4 [facility] Serum or plasma calcium nick urement (mass/volume)Ordered By: Dr. Arceo on 01-30-2022 Calcium [Mass/Vol] 9.0 mg/dL 8.5-10.1 [facility] Serum or plasma creatinine m easurement (mass/volume)Ordered By: Dr. Arceo on 01-30-2022 Creatinine [Mass/Vol] 1.07 mg/dL 0.55-1.02 [facility] Comment on above: The validity of the calculated GFR & GFRAA in patients over 70 years has not been determined. Clinical correlation is essential. Serum or plasma urea nitroge n measurement (mass/volume)Ordered By: Dr. Arceo on 01-30-2022 Urea nitrogen [Mass/Vol] 17 mg/dL 7-18 [facility] Serum or plasma uric acid me asurement (mass/volume)Ordered By: Dr. Arceo on 01-30-2022 Urate [Mass/Vol] 5.9 mg/dL 2.6-6.0 [facility] Comment on above: The drugs N-Acetylcy steine and Metamizole may falsely depress this assay. Thin prep Papanicolaou smear with manual screeningOrdered By: Dr. Arceo on 01-30-2022 Thin prep Papanicolaou smear with manual screening 41 U/L 15-37 [facility] Thin prep Papanicolaou smear with manual screening 6 5-15 [facility] Basophil percentageon 2021 Cholesterol [Mass/Vol] 157 mg/dL <200 [facility] Work Phone: Comment on above: <200 mg/dL Desirable 200-240 mg/dL Borderline >240 mg/dL High Risk Triglyceride [Mass/Vol] 135 mg/dL <199 [facility] Work Phone: Comment on above: The drugs N-Acetylcy steine and Metamizole may falsely depress this assay.Serum Triglycerides Reference Interval Normal <150 mg/dL Borderline high 150 - 199 mg/dL High 200 - 499 mg/dL Very High > or = 500 mg/dL Glucose Glucometer (BldC) [M ass/Vol]on 09-10-2021 Glucose [Mass/Vol] 292 mg/dL 74-106 [facility] Work Phone: Comment on above: MANAGEMENT OF PATIEN T CARE PER NURSING PROTOCOL Serum or plasma cholesterol in HDL measurement (mass/volume)on 09-10-2021 Cholesterol in HDL [Mass/Vol] 33 mg/dL >40 [facility] Work Phone: Comment on above: The drugs N-Acetylcy steine and Metamizole may falsely depress this assay. Reference Range HDL <40 mg/dL Low HDL Cholesterol HDL >or= 60 mg/dL High HDL Cholesterol Serum or plasma cholesterol in VLDL measurement (mass/volume)on 09-10-2021 Cholesterol in VLDL [Mass/Vol] 27 mg/dL 5-40 [facility] Work Phone: Serum or plasma low density lipoprotein (LDL) cholesterol measurement (mass/volume)on 09-10-2021 Cholesterol in LDL [Mass/Vol] 97 mg/dL 0-130 [facility] Work Phone: [phone] Absolute lymphocyte counton 09-09-2021 Lymphocytes Auto (Unsp spec) [#/Vol] 0.74 10*3/uL 0.83-4.51 [facility] Work Phone: Basophil percentageon 2021 Basophils/100 WBC (Bld) 1.0 % 0-1 [facility] Work Phone: [phone] Bilirubin [Mass/Vol] 0.90 mg/dL 0.20-1.00 [facility] Work Phone: [phone] Comment on above: For patients on eltr ombopag therapy, use of Dimension [place] TBIL is not recommended. Chloride [Moles/Vol] 106 mmol/L 98-107 [facility] Work Phone: Eosinophils/100 WBC (Bld) 1.5 % 0-5 [facility] Work Phone: [phone] Glucose [Mass/Vol] 254 mg/dL 74-106 [facility] Work Phone: Comment on above: Glucose result great er than or equal to 200 mg/dLsuggests DIABETES MELLITUS per A.D.A. criteria. Neutrophils (Bld) [#/Vol] 2.9 10*3/uL 2.0-7.7 [facility] Work Phone: Neutrophils/100 WBC (Bld) 71.7 % 47-70 [facility] Work Phone: Potassium [Moles/Vol] 3.9 mmol/L 3.5-5.1 [facility] Work Phone: Protein [Mass/Vol] 7.9 g/dL 6.4-8.2 [facility] Work Phone: Sodium [Moles/Vol] 139 mmol/L 136-145 [facility] Work Phone: [phone] WBC (Bld) [#/Vol] 4.0 10*3/uL 4.4-11.0 [facility] Work Phone: Blood erythrocytes count (nu mber/volume)on 09-09-2021 RBC (Bld) [#/Vol] 4.41 10*6/uL 4.2-5.4 [facility] Work Phone: Blood hemoglobin measurement (mass/volume)on 09-09-2021 Hemoglobin (Bld) [Mass/Vol] 14.2 g/dL 12.0-15.0 [facility] Work Phone: Blood lymphocytes/100 leukoc yteson 09-09-2021 Lymphocytes/100 WBC (Bld) 18.5 % 19-41 [facility] Work Phone: Blood monocytes/100 leukocyt eson 09-09-2021 Monocytes/100 WBC (Bld) 6.5 % 0-10 [facility] Work Phone: Blood platelet mean volumeon 09-09-2021 Platelet mean volume (Bld) [Entitic vol] 11.1 fL 6.2-12.0 [facility] Work Phone: Determination of erythrocyte mean corpuscular volume (MCV)on 09-09-2021 MCV (RBC) [Entitic vol] 93.0 fL 81-99 [facility] Work Phone: Hematocrit Auto (Bld) [Volum e fraction]on 09-09-2021 Hematocrit (Bld) [Volume fraction] 41.0 % 37-47 [facility] Work Phone: INR in Blood by Coagulation assayon 09-09-2021 INR Coag (Bld) [Relative time] 1.2 {INR} [facility] Work Phone: Laboratory - Chemistry and C hemistry - challengeon 09-09-2021 ALP [Catalytic activity/Vol] 100 U/L 45-117 [facility] Work Phone: ALT [Catalytic activity/Vol] 40 U/L 13-56 [facility] Work Phone: CO2 [Moles/Vol] 24.0 mmol/L 21.0-32.0 [facility] Work Phone: Globulin (S) [Mass/Vol] 4.6 g/dL 2.2-4.2 [facility] Work Phone: Urea nitrogen/Creatinine [Mass ratio] 14.6 mg/mg 10-20 [facility] Work Phone: Laboratory - Coagulationon 0 09-09-2021 PT Coag (PPP) [Time] 14.7 s 11.7-14.9 [facility] Work Phone: Laboratory - Hematology and Cell countson 09-09-2021 Erythrocyte distribution width (RBC) [Entitic vol] 44.1 fL 35.1-43.9 [facility] Work Phone: Erythrocyte distribution width (RBC) [Ratio] 13.0 % 11.6-14.6 [facility] Work Phone: Immature granulocytes/100 WBC (Bld) 0.800 % 0.0-0.9 [facility] Work Phone: Comment on above: IG% - Immature Granu locytes (promyelocytes, myelocytes and metamyelocytes) > 1% indicates that a LEFT SHIFT is Present. MCH (RBC) [Entitic mass] 32.2 pg 27.0-32.0 [facility] Work Phone: Nucleated RBC/100 WBC (Bld) [Ratio] 0 % 0-5 [facility] Work Phone: MCHC Auto (RBC) [Mass/Vol]on 09-09-2021 MCHC (RBC) [Mass/Vol] 34.6 g/dL 32-36 [facility] Work Phone: No Panel Informationon 09-09 Troponin I High Sensitivity 8 pg/mL 3.0-54.0 [facility] Work Phone: Comment on above: Please Note: New Kelsi t Units and Gender Specific Reference Ranges. For more information see Policy Stat Procedure [place] High Sensitivity Troponin (TNIH) and attachments. Estimated Creatinine Clearance Calc 36.44 ml/min [facility] Work Phone: Estimated GFR (MDRD) Amer 72 mL/min >60 [facility] Work Phone: Comment on above: GFR Calc Estimated GFR (MDRD) Non-Af Amer 60 mL/min >60 [facility] Work Phone: Comment on above: Non- GFR Calc Troponin I High Sensitivity 7 pg/mL 3.0-54.0 [facility] Work Phone: Comment on above: Please Note: New Kelsi t Units and Gender Specific Reference Ranges. For more information see Policy Stat Procedure [place] High Sensitivity Troponin (TNIH) and attachments. Platelets bldon 09-09-2021 Platelets (Bld) [#/Vol] 128 10*3/uL 150-450 [facility] Work Phone: Serum or plasma albumin nick urement (mass/volume)on 09-09-2021 Albumin [Mass/Vol] 3.3 g/dL 3.2-5.0 [facility] Work Phone: Serum or plasma albumin/glob ulin mass ratioon 09-09-2021 Albumin/Globulin [Mass ratio] 0.7 {ratio} 0.9-2.4 [facility] Work Phone: Serum or plasma calcium nick urement (mass/volume)on 09-09-2021 Calcium [Mass/Vol] 9.0 mg/dL 8.5-10.1 [facility] Work Phone: Serum or plasma creatinine m easurement (mass/volume)on 09-09-2021 Creatinine [Mass/Vol] 0.96 mg/dL 0.55-1.02 [facility] Work Phone: Comment on above: The validity of the calculated GFR & GFRAA in patients over 70 years has not been determined. Clinical correlation is essential. Serum or plasma urea nitroge n measurement (mass/volume)on 09-09-2021 Urea nitrogen [Mass/Vol] 14 mg/dL 7-18 [facility] Work Phone: Thin prep Papanicolaou smear with manual screeningon 09-09-2021 Thin prep Papanicolaou smear with manual screening 37 U/L 15-37 [facility] Work Phone: Thin prep Papanicolaou smear with manual screening 9 5-15 [facility] Work Phone: Whole blood hemoglobin A1c/t otal hemoglobin ratio (mass fraction)on 09-09-2021 HbA1c (Bld) [Mass fraction] 7.9 % 3.8-5.6 [facility] Work Phone: Comment on above: Normal < 5.7 % Predi abetic 5.7 - 6.4 % Diabetic >or= 6.5 % Please note range changes. Vital Signs Date Time Vital Sign Value Performing Clinician Faci lity 12-15-2024 11:45-0500 Diastolic blood pressure 55 mm[Hg] Dr. Desiree Tapia MD Work Phone: [facility] 12-15-2024 11:45-0500 Heart rate 89 /min Dr. Desiree Tapia MD Work Phone: [facility] 12-15-2024 11:45-0500 Respiratory rate 18 /min Dr. Desiree Tapia MD Work Phone: [facility] 12-15-2024 11:45-0500 Systolic blood pressure 166 mm[Hg] Dr. Desiree Tapia MD Work Phone: [facility] 12-15-2024 11:06-0500 Body temperature 97.3 [degF] Dr. Desiree Tapia MD Work Phone: [facility] 12-15-2024 08:38-0500 Body height 154.[address] Desiree Tapia MD Work Phone: [facility] 12-15-2024 08:38-0500 Body mass index (BMI) [Ratio] 28.1 kg/m2 Dr. Desiree Tapia MD Work Phone: [facility] 12-15-2024 08:38-0500 Body temperature 97.9 [degF] Dr. Desiree Tapia MD Work Phone: [phone] [place] [address] 12-15-2024 08:38-0500 Body weight 67.[address] Desiree Tapia MD Work Phone: 6([phone])217-301086 [place] [address] 12-15-2024 08:38-0500 Diastolic blood pressure 75 mm[Hg] Dr. Desiree Tapia MD Work Phone: 0(228)[phone] [place] [address] 12-15-2024 08:38-0500 Heart rate 90 /min Dr. Desiree Tapia MD Work Phone: 0(432)776-900903 [place] [address] 12-15-2024 08:38-0500 Respiratory rate 18 /min Dr. Desiree Tapia MD Work Phone: 0(838)760-758103 [place] [address] 12-15-2024 08:38-0500 SaO2% (BldA) [Mass fraction] 93 % Dr. Desiree Tapia MD Work Phone: 4(728)910-300403 [place] [address] 12-15-2024 08:38-0500 Systolic blood pressure 155 mm[Hg] Dr. Desiree Tapia MD Work Phone: 3([phone])327-393903 [place] [address] 12-11-2024 20:22-0500 Body temperature 98.4 [degF] Dr. Desiree Tapia MD Work Phone: [facility] 12-11-2024 20:22-0500 Diastolic blood pressure 43 mm[Hg] Dr. Desiree Tapia MD Work Phone: 3(689)311-403303 [place] [address] 12-11-2024 20:22-0500 Heart rate 76 /min Dr. Desiree Tapia MD Work Phone: 8([phone])991-813103 [place] [address] 12-11-2024 20:22-0500 Respiratory rate 18 /min Dr. Desiree Tapia MD Work Phone: 1([phone])[phone] [place] [address] 12-11-2024 20:22-0500 SaO2% (BldA) [Mass fraction] 99 % Dr. Desiree Tapia MD Work Phone: 6(706)872-339086 [place] [address] 12-11-2024 20:22-0500 Systolic blood pressure 158 mm[Hg] Dr. Desiree Tapia MD Work Phone: 0(658)236-584603 [place] [address] 12-11-2024 19:27-0500 Body mass index (BMI) [Ratio] 29.5 kg/m2 Dr. Desiree Tapia MD Work Phone: 7(585)865-560603 [place] [address] 12-11-2024 19:27-0500 Body weight [address] Desiree Tapia MD Work Phone: 7(137)384-798534 [place] [address] 11-28-2024 12:59-0400 Body mass index (BMI) [Ratio] 27.6 kg/m2 Dr. Desiree Tapia MD Work Phone: 7([phone])718-546334 [place] [address] 11-28-2024 12:59-0400 Body temperature 98.6 [degF] Dr. Desiree Tapia MD Work Phone: 8([phone])664-138234 [place] [address] 11-28-2024 12:59-0400 Body weight 66.[address] Desiree Tapia MD Work Phone: 8(820)207-675803 [place] [address] 11-28-2024 12:59-0400 Diastolic blood pressure 65 mm[Hg] Dr. Desiree Tapia MD Work Phone: 0(720)596-599103 [place] [address] 11-28-2024 12:59-0400 Heart rate 84 /min Dr. Desiree Tapia MD Work Phone: 8(106)485-036303 [place] [address] 11-28-2024 12:59-0400 Respiratory rate 17 /min Dr. Desiree Tapia MD Work Phone: 7(793)275-305303 [place] [address] 11-28-2024 12:59-0400 SaO2% (BldA) [Mass fraction] 97 % Dr. Desiree Tapia MD Work Phone: 9(570)241-567703 [place] [address] 11-28-2024 12:59-0400 Systolic blood pressure 147 mm[Hg] Dr. Desiree Tapia MD Work Phone: 0(653)214-548986 [place] [address] 10-25-2024 14:12-0400 Body temperature 97.6 [degF] Dr. Desiree Tapia MD Work Phone: 8(044)574-652003 [place] [address] 10-25-2024 14:12-0400 Diastolic blood pressure 47 mm[Hg] Dr. Desiree Tapia MD Work Phone: 5(246)915-637703 [place] [address] 10-25-2024 14:12-0400 Heart rate 72 /min Dr. Desiree Tapia MD Work Phone: 9(021)218-220534 [place] [address] 10-25-2024 14:12-0400 Respiratory rate 16 /min Dr. Desiree Tapia MD Work Phone: 8(477)321-788234 [place] [address] 10-25-2024 14:12-0400 SaO2% (BldA) [Mass fraction] 94 % Dr. Desiree Tapia MD Work Phone: 5(880)896-989203 [place] [address] 10-25-2024 14:12-0400 Systolic blood pressure 136 mm[Hg] Dr. Desiree Tapia MD Work Phone: 1([phone])625-080003 [place] [address] 10-25-2024 12:27-0400 Body height 154.[address] Desiree Tapia MD Work Phone: 1(118)145-795403 [place] [address] 10-25-2024 12:27-0400 Body mass index (BMI) [Ratio] 28.4 kg/m2 Dr. Desiree Tapia MD Work Phone: 0(529)275-727603 [place] [address] 10-25-2024 12:27-0400 Body weight 68.[address] Desiree Tapia MD Work Phone: 2(565)232-272103 [place] [address] 10-21-2024 08:51-0400 Diastolic blood pressure 76 mm[Hg] Dr. Desiree Tapia MD Work Phone: 6(252)622-851503 [place] [address] 10-21-2024 08:51-0400 Heart rate 82 /min Dr. Desiree Tapia MD Work Phone: [facility] 10-21-2024 08:51-0400 Systolic blood pressure 151 mm[Hg] Dr. Desiree Tapia MD Work Phone: [facility] 06-28-2024 17:29-0400 Diastolic blood pressure 60 mm[Hg] Dr. Desiree Tapia MD Work Phone: [facility] 06-28-2024 17:29-0400 Systolic blood pressure 154 mm[Hg] Dr. Desiree Tapia MD Work Phone: [facility] 06-28-2024 14:04-0400 Body height 154.[address] Desiree Tapia MD Work Phone: [facility] 06-28-2024 14:04-0400 Body mass index (BMI) [Ratio] 27.5 kg/m2 Dr. Desiree Tapia MD Work Phone: [facility] 06-28-2024 14:04-0400 Body temperature 97.9 [degF] Dr. Desiree Tapia MD Work Phone: [facility] 06-28-2024 14:04-0400 Body weight 65.[address] Desiree Tapia MD Work Phone: [facility] 06-28-2024 14:04-0400 Diastolic blood pressure 70 mm[Hg] Dr. Desiree Tapia MD Work Phone: [facility] 06-28-2024 14:04-0400 Heart rate 79 /min Dr. Desiree Tapia MD Work Phone: [facility] 06-28-2024 14:04-0400 Respiratory rate 16 /min Dr. Desiree Tapia MD Work Phone: [facility] 06-28-2024 14:04-0400 SaO2% (BldA) [Mass fraction] 96 % Dr. Desiree Tapia MD Work Phone: [facility] 06-28-2024 14:04-0400 Systolic blood pressure 172 mm[Hg] Dr. Desiree Tapia MD Work Phone: [facility] 06-28-2024 13:05-0400 Body height 154.[address] Desiree Tapia MD Work Phone: [facility] 06-28-2024 13:05-0400 Body mass index (BMI) [Ratio] 27.3 kg/m2 Dr. Desiree Tapia MD Work Phone: [facility] 06-28-2024 13:05-0400 Body temperature 98.6 [degF] Dr. Desiree Tapia MD Work Phone: [facility] 06-28-2024 13:05-0400 Body weight 65.[address] Desiree Tapia MD Work Phone: [facility] 06-28-2024 13:05-0400 Diastolic blood pressure 62 mm[Hg] Dr. Desiree Tapia MD Work Phone: [facility] [facility] 06-28-2024 13:05-0400 Heart rate 83 /min Dr. Desiree Tapia MD Work Phone: [facility] 06-28-2024 13:05-0400 Respiratory rate 16 /min Dr. Desiree Tapia MD Work Phone: [facility] 06-28-2024 13:05-0400 SaO2% (BldA) [Mass fraction] 96 % Dr. Desiree Tapia MD Work Phone: [facility] 06-28-2024 13:05-0400 Systolic blood pressure 175 mm[Hg] Dr. Desiree Tapia MD Work Phone: [facility] 04-19-2024 13:18-0400 Body temperature 98 [degF] Dr. Desiree Tapia MD Work Phone: [facility] 04-19-2024 13:18-0400 Body weight 66.[address] Desiree Tapia MD Work Phone: [facility] 04-19-2024 13:18-0400 Diastolic blood pressure 62 mm[Hg] Dr. Desiree Tapia MD Work Phone: [facility] 04-19-2024 13:18-0400 Heart rate 78 /min Dr. Desiree Tapia MD Work Phone: [phone] [place] [address] 04-19-2024 13:18-0400 Respiratory rate 16 /min Dr. Desiree Tapia MD Work Phone: [facility] 04-19-2024 13:18-0400 SaO2% (BldA) [Mass fraction] 97 % Dr. Desiree Tapia MD Work Phone: [facility] 04-19-2024 13:18-0400 Systolic blood pressure 153 mm[Hg] Dr. Desiree Tapia MD Work Phone: [facility] 03-22-2024 12:52-0500 Body height 154.[address] Desiree Tapia MD Work Phone: [facility] 03-22-2024 12:52-0500 Body mass index (BMI) [Ratio] 27 kg/m2 Dr. Desiree Tapia MD Work Phone: [facility] 03-22-2024 12:52-0500 Body temperature 98.4 [degF] Dr. Desiree Tapia MD Work Phone: [facility] 03-22-2024 12:52-0500 Body weight 64.[address] Desiree Tapia MD Work Phone: [facility] 03-22-2024 12:52-0500 Diastolic blood pressure 62 mm[Hg] Dr. Desiree Tapia MD Work Phone: [facility] 03-22-2024 12:52-0500 Heart rate 85 /min Dr. Desiree Tapia MD Work Phone: [facility] 03-22-2024 12:52-0500 Respiratory rate 16 /min Dr. Desiree Tapia MD Work Phone: [facility] 03-22-2024 12:52-0500 SaO2% (BldA) [Mass fraction] 96 % Dr. Desiree Tapia MD Work Phone: [facility] 03-22-2024 12:52-0500 Systolic blood pressure 148 mm[Hg] Dr. Desiree Tapia MD Work Phone: [facility] 01-04-2024 08:45-0500 Body temperature 97.1 [degF] Dr. Desiree Tapia MD Work Phone: [facility] 01-04-2024 08:45-0500 Diastolic blood pressure 78 mm[Hg] Dr. Desiree Tapia MD Work Phone: [facility] 01-04-2024 08:45-0500 Heart rate 70 /min Dr. Desiree Tapia MD Work Phone: [facility] 01-04-2024 08:45-0500 Respiratory rate 18 /min Dr. Desiree Tapia MD Work Phone: [facility] 01-04-2024 08:45-0500 SaO2% (BldA) [Mass fraction] 96 % Dr. Desiree Tapia MD Work Phone: [facility] 01-04-2024 08:45-0500 Systolic blood pressure 117 mm[Hg] Dr. Desiree Tapia MD Work Phone: [facility] 01-04-2024 07:29-0500 Body mass index (BMI) [Ratio] 28.8 kg/m2 Dr. Desiree Tapia MD Work Phone: [facility] 01-04-2024 07:29-0500 Body weight 69.[address] Desiree Tapia MD Work Phone: [facility] 10-30-2022 10:58-0400 Body height 154.[address] Desiree Tapia Work Phone: [facility] 10-30-2022 10:58-0400 Body mass index (BMI) [Ratio] 28.5 kg/m2 Dr. Desiree Tapia Work Phone: [facility] 10-30-2022 10:58-0400 Body temperature 98.6 [degF] Dr. Desiree Tapia Work Phone: [facility] 10-30-2022 10:58-0400 Body weight 68.[address] Desiree Tapia Work Phone: [facility] 10-30-2022 10:58-0400 Diastolic blood pressure 52 mm[Hg] Dr. Desiree Tapia Work Phone: [facility] 10-30-2022 10:58-0400 Heart rate 81 /min Dr. Desiree Tapia Work Phone: [facility] 10-30-2022 10:58-0400 Respiratory rate 17 /min Dr. Desiree Tapia Work Phone: [facility] 10-30-2022 10:58-0400 SaO2% (BldA) [Mass fraction] 94 % Dr. Desiree Tapia Work Phone: [facility] 10-30-2022 10:58-0400 Systolic blood pressure 126 mm[Hg] Dr. Desiree Tapia Work Phone: [facility] 2022 10:07-0400 Body weight 68.[address] Desiree Tapia Work Phone: [facility] 2022 10:07-0400 Diastolic blood pressure 56 mm[Hg] Dr. Desiree Tapia Work Phone: [facility] 2022 10:07-0400 Heart rate 88 /min Dr. Desiree Tapia Work Phone: [facility] 2022 10:07-0400 Respiratory rate 18 /min Dr. Desiree Tapia Work Phone: [facility] 2022 10:07-0400 SaO2% (BldA) [Mass fraction] 99 % Dr. Desiree Tapia Work Phone: [facility] 2022 10:07-0400 Systolic blood pressure 142 mm[Hg] Dr. Desiree Tapia Work Phone: [facility] 02-20-2022 08:55-0500 Body height 154.[address] Desiree Tapia Work Phone: [facility] 02-20-2022 08:55-0500 Body mass index (BMI) [Ratio] 28.8 kg/m2 Dr. Desiree Tapia Work Phone: [facility] 02-20-2022 08:55-0500 Body temperature 98.4 [degF] Dr. Desiree Tapia Work Phone: [facility] 02-20-2022 08:55-0500 Body weight 69.[address] Desiree Tapia Work Phone: [facility] 02-20-2022 08:55-0500 Diastolic blood pressure 60 mm[Hg] Dr. Desiree Tapia Work Phone: [facility] 02-20-2022 08:55-0500 Heart rate 91 /min Dr. Desiree Tapia Work Phone: [facility] 02-20-2022 08:55-0500 Respiratory rate 16 /min Dr. Desiree Tapia Work Phone: [facility] 02-20-2022 08:55-0500 SaO2% (BldA) [Mass fraction] 96 % Dr. Desiree Tapia Work Phone: [facility] 02-20-2022 08:55-0500 Systolic blood pressure 160 mm[Hg] Dr. Desiree Tapia Work Phone: [facility] 09-10-2021 12:35-0400 Body temperature 98.6 [degF] Dr. Desiree Tapia Work Phone: [facility] Work Phone: 09-10-2021 12:35-0400 Diastolic blood pressure 61 mm[Hg] Dr. Desiree Tapia Work Phone: [facility] Work Phone: 09-10-2021 12:35-0400 Heart rate 80 /min Dr. Desiree Tapia Work Phone: [facility] Work Phone: 09-10-2021 12:35-0400 Respiratory rate 18 /min Dr. Desiree Tapia Work Phone: [facility] Work Phone: 09-10-2021 12:35-0400 SaO2% (BldA) [Mass fraction] 98 % Dr. Desiree Tapia Work Phone: [facility] Work Phone: 09-10-2021 12:35-0400 Systolic blood pressure 151 mm[Hg] Dr. Desiree Tapia Work Phone: [facility] Work Phone: 09-09-2021 16:02-0400 Body mass index (BMI) [Ratio] 27.8 kg/m2 Dr. Desiree Tapia Work Phone: [facility] Work Phone: 09-09-2021 15:09-0400 Body height 154.[address] Desiree Tapia Work Phone: [facility] Work Phone: 09-09-2021 15:09-0400 Body weight 66.[address] Desiree Tapia Work Phone: [facility] Work Phone: 09-09-2021 13:43-0400 Body temperature 97.8 [degF] [facility] Work Phone: 09-09-2021 13:43-0400 Diastolic blood pressure 48 mm[Hg] [facility] Work Phone: 09-09-2021 13:43-0400 Heart rate 89 /min [facility] Work Phone: 09-09-2021 13:43-0400 Respiratory rate 20 /min [facility] Work Phone: 09-09-2021 13:43-0400 SaO2% (BldA) [Mass fraction] 96 % [facility] Work Phone: 09-09-2021 13:43-0400 Systolic blood pressure 156 mm[Hg] [facility] Work Phone: 09-09-2021 11:41-0400 Body height 157 cm [facility] Work Phone: 09-09-2021 11:41-0400 Body mass index (BMI) [Ratio] 27.2 kg/m2 [facility] Work Phone: 09-09-2021 11:41-0400 Body weight 67.13 kg [facility] Work Phone: Encounters Encounter Date Encounter Type Care Provider Facility Start: 12-15-2024 ambulatory Desiree Miumer Facility: [facility] Start: 12-15-2024 End: 12-15-2024 ambulatory [facility] Start: 12-11-2024 End: 12-11-2024 Emergency department patient visit [facility] Facility:[facility] Start: 11-28-2024 End: 11-28-[address] Surendra Hidalgo MD -[facility] Work Phone: Start: 11-28-2024 End: 11-28-[address] Surendra Hidalgo MD -[facility] Work Phone: Start: 11-28-2024 End: 11-28-[address] Desiree Tapia MD Work Phone: -[facility] Start: 11-28-2024 End: 11-28-2024 ambulatory [facility] Facility:[facility] Start: 11-25-2024 End: 11-25-2024 Patient encounter procedure Moy Ramos DO [facility] Work Phone: Start: 11-25-2024 End: 11-25-2024 ambulatory [facility] Facility:[facility] Start: 11-22-2024 ambulatory [facility]: [facility] Start: 11-22-2024 Non-patient / Non-visit Dr. Arya Argueta MD -[facility] Start: 11-22-2024 End: 11-22-2024 Patient encounter procedure Haley BRADFORD -Cardiovascular Services Work Phone: Start: 11-22-2024 End: 11-22-2024 ambulatory [facility] Facility:[facility] Start: 11-03-2024 End: 11-03-2024 Patient encounter procedure Moy Ramos DO [facility] Work Phone: Start: 11-03-2024 End: 11-03-[address] Desiree Tapia MD Work Phone: [facility] Start: 10-25-2024 Non-patient / Non-visit Moy Ramos DO [facility] Start: 10-25-2024 End: 10-25-2024 Admission to same day surgery center Moy Ramos DO -Endoscopy Work Phone: Start: 10-25-2024 End: 10-25-[address] Desiree Tapia MD Work Phone: -Endoscopy Start: 10-21-2024 End: 10-21-2024 Patient encounter procedure Lesly BRADFORD -[facility] Work Phone: Start: 10-21-2024 End: 10-21-[address] Desiree Tapia MD Work Phone: -[facility] Start: 10-21-2024 End: 10-21-2024 ambulatory Desiree Tapia Facility:[facility] Start: 10-04-2024 End: 10-04-[address] Desiree Tapia MD Work Phone: -Laboratory [facility] Start: 10-04-2024 End: 10-04-[address] Desiree Tapia MD -Laboratory [place] [facility] Start: 10-04-2024 End: 10-04-2024 ambulatory Desiree Tapia Facility:[facility] Start: 08-29-2024 End: 08-29-[address] Desiree Tapia MD Work Phone: -Radiology [facility] Start: 08-29-2024 End: 08-29-[address] Surendra Hidalgo MD -Radiology [facility] Work Phone: Start: 08-29-2024 End: 08-29-2024 ambulatory Surendra Hidalgo Facility:[facility] Start: 06-28-2024 End: 06-28-[address] Desiree Tapia MD Work Phone: [facility] Work Phone: Start: 06-28-2024 End: 06-28-2024 Patient encounter procedure Miguel BRADFORD -[facility] Work Phone: Start: 06-28-2024 End: 06-28-[address] Surendra Hidalgo MD -[facility] Work Phone: Start: 06-28-2024 End: 06-28-[address] Desiree Tapia MD Work Phone: [facility] Work Phone: Start: 04-19-2024 End: 04-19-2024 Patient encounter procedure Haley BRADFORD -[facility] Work Phone: Start: 04-19-2024 End: 04-19-2024 ambulatory Desiree Tapia Facility[place] Start: 04-19-2024 Non-patient / Non-visit Dr. Arya Argueta MD -[facility] Start: 04-19-2024 End: 04-19-[address] Desiree Tapia MD Work Phone: [facility] Work Phone: Start: 04-19-2024 End: 04-19-2024 Patient encounter procedure Haley BRADFORD -Cardiovascular Services Work Phone: Start: 04-19-2024 End: 04-19-2024 ambulatory Desiree Tapia Facility:[facility] Start: 04-01-2024 End: 04-01-[address] Desiree Tapia MD Work Phone: [facility] Work Phone: Start: 04-01-2024 End: 04-01-[address] Desiree Tapia MD -[facility] Start: 04-01-2024 End: 04-01-2024 ambulatory Desiree Tapia Facility:[facility] Start: 03-22-2024 End: 03-22-[address] Surendra Hidalgo MD -[facility] Work Phone: Start: 03-22-2024 End: 02-11-2025 ambulatory Desiree Tapia Facility:[facility] Start: 01-11-2024 End: 01-11-[address] Desiree Tapia MD -Laboratory, Specimen Work Phone: Start: 01-11-2024 End: 01-11-2024 ambulatory Desiree Sharproldan Facility:[facility] Start: 01-04-2024 Non-patient / Non-visit Moy Ramos DO -[facility] Start: 01-04-2024 End: 01-04-2024 Admission to same day surgery center Moyisidro Ramos -Endoscopy Work Phone: Start: 01-04-2024 End: 01-04-[facility] Start: 02-23-2023 Non-patient / Non-visit Dr. Desiree Tapia Work Phone: [facility] Start: 02-23-2023 End: 02-23-[address] Desiree Tapia Work Phone: [facility] Work Phone: Start: 02-23-2023 End: 02-23-[address] [facility] Start: 11-25-2022 End: 11-25-[address] Desiree Tapia Work Phone: [facility] Work Phone: Start: 11-25-2022 End: 11-25-[address] Desiree Tapia Work Phone: [facility]-Sleep Lab Work Phone: Start: 10-30-2022 End: 10-30-[address] Desiree Tapia Work Phone: [facility] Work Phone: Start: 06-11-2022 End: 06-11-[address] Desiree Tapia Work Phone: [facility] Work Phone: Start: 06-11-2022 End: 06-11-[address] Desiree Tapia Work Phone: [facility] Start: 05-20-2022 End: 05-20-[address] Desiree Tapia Work Phone: [facility]-Laboratory Start: 2022 End: [address] Desiree Tapia Work Phone: [facility] Vascular Surgery Start: 04-30-2022 Non-patient / Non-visit Dr. Desiree Tapia Work Phone: [facility] Start: 04-30-2022 End: 04-30-[address] Desiree Tapia Work Phone: [facility] Work Phone: Start: 04-30-2022 End: 04-30-[address] Desiree Tapia Work Phone: [facility]-Pulmonary Services/Neurology Start: 04-08-2022 End: 04-08-[address] Desiree Tapia Work Phone: [facility]-Nuclear Medicine, [facility] Start: 02-25-2022 End: 02-25-[address] Desiree Tapia Work Phone: [facility] Work Phone: Start: 02-25-2022 End: 02-25-[address] Desiree Tapia Work Phone: [facility]-Cardiovascular Services Start: 02-25-2022 Non-patient / Non-visit Dr. Desiree Tapia Work Phone: [facility] Start: 02-20-2022 End: 02-20-[address] Desiree Tapia Work Phone: [facility] Neurology Start: 01-30-2022 End: 01-30-2022 ambulatory [facility] Work Phone: Start: 01-30-2022 End: 01-30-2022 Patient encounter procedure [facility] Start: 09-16-2021 End: 12-10-2021 ambulatory DESIREE TAPIA Facility:B Start: 09-10-2021 Non-patient / Non-visit Dr. Desiree Tapia Work Phone: [facility] Inpatient Physicians Start: 09-09-2021 Non-patient / Non-visit Dr. Desiree Tapia Work Phone: [facility] Start: 09-09-2021 End: 09-10-2021 Evaluation and management of inpatient [facility]-Progressive Care Unit Start: 10-14-2017 End: 10-14-2017 Patient encounter DESIREE De Oliveira [facility] Procedures Date Procedure Procedure Detail Performing Clinician Start: 11-25-2024 Ul[address] of liver [address] Hermes Tapia MD Work Phone: Start: 10-25-[address] Desiree owusu MD [...] Treatment Date Care Activity Detail Author Start: 01-04-2025 ambulatory Ambulatory Facility:[facility] Start: 12-15-2024 Microscopic observation [Identifier] in Body fluid by Cyto stain [facility] Start: 12-15-2024 Centesis Paracentesis with US [facility] Start: 12-15-2024 Acute hepatitis 2000 panel - Serum [facility] Start: 12-15-2024 Patient encounter procedure Registered Clinical -Ultrasound [facility] Work Phone: Start: 12-15-2024 End: 12-15-2024 Patient encounter procedure Dysphagia -[facility] Work Phone: Start: 12-11-2024 [facility] Start: 12-11-2024 Centesis [facility] Start: 12-11-2024 Ct abdomen & pelvis w/contrast material Abdomen/Pelvis W IV Cont ONLY [facility] Start: 12-11-2024 End: 12-11-2024 Emergency department patient visit Departed Emergency -Emergency Department Work Phone: Start: 10-25-2024 Enteroscopy > 2nd prtn w/control bleeding SMALL BOWEL ENDOSCOPY [facility] Start: 10-25-2024 Patient discharge [facility] Start: 01-04-2024 Egd transoral biopsy single/multiple EGD BIOPSY SINGLE/MULTIPLE [facility] Start: 01-04-2024 Egd transoral control bleeding any method EGD CONTROL BLEEDING ANY [facility] Start: 01-04-2024 Patient discharge [facility] Start: 03-20-2022 Patient referral [facility] Work Phone: Start: 09-10-2021 Patient discharge [facility] Work Phone: Start: 09-10-2021 Cardiac event recording [facility] Work Phone: Start: 09-09-2021 Following clinical pathway protocol [facility] Work Phone: Start: 09-09-2021 Assessment of risk of venous thromboembolism [facility] Work Phone: Start: 09-09-2021 Cardiac monitoring [facility] Work Phone: Start: 09-09-2021 Care regimes management [facility] Work Phone: Start: 09-09-2021 Catheterization of vein [facility] Work Phone: Start: 09-09-2021 Continuous pulse oximetry [facility] Work Phone: Start: 09-09-2021 Elevation of head of bed [facility] Work Phone: Start: 09-09-2021 Exercises [facility] Work Phone: Start: 09-09-2021 Implementation of planned interventions [facility] Work Phone: Start: 09-09-2021 Insertion of catheter into peripheral vein [facility] Work Phone: Start: 09-09-2021 Measuring intake and output [facility] Work Phone: Start: 09-09-2021 Notification of physician [facility] Work Phone: Start: 09-09-2021 Oxygen therapy [facility] Work Phone: Start: 09-09-2021 Patient referral to dietitian [facility] Work Phone: Start: 09-09-2021 Providing care according to standard [facility] Work Phone: Start: 09-09-2021 Provision of activity privileges [facility] Work Phone: Start: 09-09-2021 Referral to occupational therapist [facility] Work Phone: Start: 09-09-2021 Referral to service [facility] Work Phone: Start: 09-09-2021 Speech therapy assessment [facility] Work Phone: Start: 09-09-2021 [facility] Work Phone: Start: 09-09-2021 Admission procedure [facility] Work Phone: Start: 09-09-2021 [facility] Work Phone: [id number]. tumor marker [Units/volume] in Serum or Plasma [facility] Antibody to lupus [place] protein measurement [facility] Work Phone: Antibody to SS-A measurement [facility] Work Phone: CBC W Auto Different ial panel - Blood [facility] Centromere protein B Ab [Units/volume] in Serum [facility] Work Phone: Chromatin Ab [Units/volume] in Serum or Plasma [facility] Work Phone: Comprehensive metabo lic 2000 panel - Serum or Plasma [facility] Cytology report of B pan fluid Cyto stain [facility] DNA double strand Ab [Units/volume] in Serum [facility] Work Phone: DXA Bone [Mass/Area] Bone density [facility] Hepatitis A virus Ig M Ab [Presence] in Serum [facility] Hepatitis B core ant ibody measurement, IgM type [facility] Hepatitis B surface antigen measurement [facility] Hepatitis C antibody measurement [facility] Sarah-1 extractable nuc lear Ab [Units/volume] in Serum [facility] Work Phone: Nuclear Ab [Presence ] in Serum [facility] Work Phone: Patient Education [facility] Work Phone: Patient referral [facility] Work Phone: [id number] extractable nuclear Ab [Units/volume] in Serum by Immunoassay [facility] Work Phone: Howell extractable nu clear Ab [Presence] in Serum [facility] Work Phone: US Carotid arteries [facility] US Carotid arteries [facility] Immunizations Immunization Date Immunization Notes Care Provider Alan peña 05-24-2021 Covid (Pfizer) Dr. Desiree owusu Work Phone: [facility] 12-25-2020 Covid (Pfizer) Dr. Desiree owusu Work Phone: [facility] 05-10-2020 Covid (Pfizer) [facility] 04-19-2020 Covid (Pfizer) [facility] Payers Date Payer Category Payer Self-pay [id number] 2021 Private Health Insurance 101 [id number] 1945 Unknown [id number] 2.16.8 [id number] Medicare [id number] Medicare [id number] Unknown [id number] 2.16.8 40.1.328155.3.579.2.462 Unknown [id number] 2.16.8 40.1.409611.3.579.2.462 Unknown [id number] 2.16.8 40.1.498670.3.579.2.462 Unknown [id number] 2.16.8 40.1.241035.3.579.2.462 Unknown [id number] 2.16.8 40.1.350963.3.579.2.462 Unknown [id number] 2.16.8 40.1.303727.3.579.2.462 Unknown [id number] 2.16.8 40.1.256711.3.579.2.462 Unknown [id number] 2.16.8 40.1.096913.3.579.2.462 Unknown [id number] 2.16.8 40.1.076852.3.579.2.462 Unknown [id number] 2.16.8 40.1.542219.3.579.2.462 Unknown [id number] 2.16.8 40.1.327943.3.579.2.462 Unknown [id number] 2.16.8 40.1.517951.3.579.2.462 Unknown [id number] 2.16.8 40.1.014063.3.579.2.462 Unknown [id number] 2.16.8 40.1.594496.3.579.2.462 Unknown [id number] 2.16.8 40.1.565855.3.579.2.462 Unknown [id number] 2.16.8 40.1.857660.3.579.2.462 Unknown [id number] 2.16.8 40.1.116175.3.579.2.462 Unknown [id number] 2.16.8 40.1.430463.3.579.2.462 Unknown [id number] 2.16.8 40.1.346901.3.579.2.462 Unknown [id number] 2.16.8 40.1.128063.3.579.2.462 Unknown [id number] 2.16.8 40.1.734437.3.579.2.462 Unknown [id number] 2.16.8 40.1.005796.3.579.2.462 Unknown [id number] 2.16.8 40.1.924263.3.579.2.462 Unknown [id number] 2.16.8 40.1.344205.3.579.2.462 Unknown [id number] 2.16.8 40.1.104517.3.579.2.462 Unknown [id number] 2.16.8 40.1.810799.3.579.2.462 Social History Date Type Detail Facility Start: 09-09-2021 End: 10-30-2022 Tobacco smoking status NHIS Unknown if ever smoked [facility] Start: 1945 Sex Assigned At Female [facility] Start: 09-10-2021 Non-smoker [facility] Start: 12-31-2023 End: 12-11-2024 Tobacco smoking status NHIS Never smoked tobacco (finding) [facility] Start: 04-14-2024 End: 04-28-2024 Sex Female (finding) [facility] Goals Date Patient Goal Desired Activity /State Functional Status Date Assessment Result Facility 09-10-2021 Functional status Ambulates [facility] Work Phone: Mental Status Date Assessment Result Facility 12-15-2024 Cognitive function Level Of Consciousness Awake [facility] Work Phone: 10-25-2024 Cognitive function Voice/Name [facility] Work Phone: 01-04-2024 Cognitive function Voice/Name;Touch/Shaki ng [facility] Work Phone: 09-10-2021 Cognitive function Voice/Name [facility] Work Phone: 09-09-2021 Cognitive function Voice/Name [facility] Work Phone: Clinical Notes 04-30-2022 to 11-28-2024 Note Date & Type Note Facility 11-28-2024 Progress note [facility] 11-28-2024 Progress note Note Date/Time November 28, 2024 2:49pm [facility] [address] [place] [address], [address] [place] [address] OFFICE VISIT Date of Service: 11/28/24 MR#: [id number] Acct: [id number] Name: SANDIE ANGELES DAWSON Rep #: [id number] : 1945 Provider: Dr. Katiana Hidalgo MD Age/Sex: 79/F Location: [facility] Status: Signed [facility] Chief Complaint: Fatigue, anemia Details: Interim History: [...] other day. She was started on atorvastatin. Shewas previously noted to have iron deficiency anemia. She did not tolerate an oral iron supplement (this caused constipation). Her last hemoglobin, hematocrit, iron and ferritin (March 2024) were normal however more recently,she is again anemic and her iron level is low. She has not had any symptoms suggestive of recurrent cerebrovascular ischemiasince the stroke in August 2021 and does not have any history of symptomatic stroke prior to August 2021. Her left hand numbness resolved after about 2 months. She has continued to have left-sided perioral numbness. Around November 2021, she developed right-sided facial shingles in the periorbital region. The shingles did not affect the eye directly. She saw an drill press tender. She was treated with a course of prednisone and valacyclovir. 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 She began to have worsening of her bilateral lower extremity weakness around 2020, and prior to her stroke was using a cane. Following her stroke, she used a rollator or furniture support to ambulate. In the past, she had had a right orthotic shoe and right lower extremity brace however she no longer uses these. She uses shoe insoles. She has had chronic distal bilateral lower extremity edema. She did not liketo use compression stockings. She has chronic pain in the feet and ankles that has been worse when she ambulates and subsides when she is at rest; the pain in these areas has diminished and is no longer significant. She has been having some numbness in the toes. She takes acetaminophen and [id number] ibuprofen for her pain in the feet and ankles. She has bilateral heel contractures (right greater than left) and elevated foot arches. In the past, she had some low back pain that radiated to the hips however the pain in these regions diminished. She has had some swallowing difficulty with solid foods. Amodified barium swallow revealed esophageal dysmotility and normal oropharyngealfunction. She is experiencing abdominal pain. She has peripheral vascular disease. She was [...] infection was low however a podiatry referral was made however the patient did not see a funeral arrangement director. Right ankle x-rays revealed mild soft tissue swelling and demineralized bones. Right foot x-rays revealed mildlysclerotic appearance of the first metatarsal. Her pain in the feet and ankles has subsided. She has had fatigue. She takes levothyroxine [...] now her pattern may be consistent with postherpetic neuralgia. Pain in this region has diminished following initiation of gabapentin. She sees a painter aircraft, Dr. Escobar, and has receivedright infrascapular region injections and her pain in this region has nearly completely resolved. Due to pain reduction, she has reduced her dose of gabapentin to 100 mg daily. Her cervical MRI from in 2022 reveals moderate predominantly left-sided central canal stenosis is noted at C3-4 due to C3-4 disc protrusion. Mild central canal stenosis is noted at C4-5. Moderate to severe predominantly left-sided central canal stenosis is noted at C6-7 due to broad-based disc herniation at C6-7. Multilevel bilateral neural foraminal narrowing is noted. No abnormal cord signal was noted. EMG/nerve conduction studies of the lower extremities reveal a sensorimotor polyneuropathy and right gastrocnemius and right tibialis anterior muscle EMG abnormalities consistent with history of polio. Laboratory studies reveal an abnormal serum free light chains. A subsequent serum immunofixation and urine immunofixation were unremarkable. A carotid ultrasound in February 2022 and earlier in November 2024 revealed 50-69% stenosis of the internal carotid arteries bilaterally. She snores at night and experiences daytime hypersomnia. She had previoulsy had insomnia at night; this has subsided. An unattended sleep study did not reveal evidence of sleep apnea. She experiences occasional disequilibrium/vertigo with movement. This has diminished and occurs less than once per month. She reports having a feeling of fluid in the right eye and right ear hearing loss. Physical Exam: Neuro: The patient is awake and alert and responds appropriately Neck: bilateral bruits Heart: regular rate and rhythm (a cardiac murmur was noted on prior exam) On examination on 06/23/2022, motor strength was 5/5 in the iliopsoas bilaterally, quadriceps bilaterally, left foot dorsiflexors and 4-/5 in the right foot dorsiflexors; deep tendon reflexes were absent in the knees and ankles; plantar response were downward on the left and equivocal on the right; gait or unsteady - right heel does not touch the ground. Examination of the extremities revealed atrophy of the right calf muscle; bilateral lower extremitypitting edema was noted at the shins and ankles; Tinel sign was negative at the wrists and elbows. Supplemental Info CBC, PT/INR, CMP, ENID, hemoglobin A1c (09/09/2021): WBC 4 (low), platelets 128 (low), lymphocyte percent 18.5 (low), absolute lymphocytes 0.74 (low), glucose 254 (high), hemoglobin A1c 7.9 (high) ESR, CMP, C-reactive protein (01/30/2022): ESR 31 (high), creatinine 1.07 (high), EGFR 53 (low), glucose 125 (high), AST 41 (high) Head MRI (09/09/2021): FINDINGS: BRAIN AND EXTRA-AXIAL SPACES: Punctate ischemic infarct of the right thalamus. Chronic involutional changes of the brain. No intra- or extra-axial hemorrhage. No intracranial mass or mass effect. Posterior fossa structures are unremarkable. Ventricles are appropriate for age. No hydrocephalus. Basal cisterns are patent. SELLA: Unremarkable. Normal sella turcica, pituitary gland, infundibular stalk, optic chiasm and hypothalamus. AUDITORY SYSTEM: Unremarkable. The internal auditory canals are patent. BONES/JOINTS: Unremarkable. No discrete lytic or blastic abnormalities. SINUSES: Unremarkable as visualized. Clear. MASTOID AIR CELLS: Unremarkable as visualized. Clear. ORBITS: Unremarkable as visualized. Both globes, extraocular muscles, optic nerves and retrobulbar fat appear unremarkable. VASCULATURE: Unremarkable as visualized. Normal flow voids in the major intracranial circulation. IMPRESSION: 1. 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 2. Chronic involutional changes of the brain. Critical finding called and case discussed. These images were reviewed on 02/20/2022. Mild diffuse age-related cerebral atrophy is noted. A small acute right thalamic infarct is noted. Mild bilateral periventricular chronic small vessel ischemic disease is noted. Head CT (09/09/2021): FINDINGS: BRAIN AND EXTRA-AXIAL SPACES: Areas of diminished white matter density noted within both cerebral hemispheres suggestive of chronic microvascular change. Prominence of the cortical sulci and ventricles consistent with volume loss change. No intra- or extra-axial hemorrhage. No evidence of acute infarct. No intracranial mass or mass effect. There is preservation of the sparrow/white matter interface. Posterior fossa structures are unremarkable. Basal cisterns are patent. BONES/JOINTS: Normal. No discrete lytic or blastic abnormalities. SINUSES: Unremarkable as visualized. Clear. MASTOID AIR CELLS: Normal. Clear. ORBITS: Visualized globes, extraocular muscles, optic nerves and retrobulbar fat appear unremarkable. IMPRESSION: 1. No acute intracranial abnormality. 2. Senescent changes. These images were reviewed on 02/20/2022. Moderate diffuse age-related cerebral atrophy is noted. Mild bilateral periventricular white matter chronic small vessel ischemic disease is noted. Neck MRA (09/09/2021): FINDINGS: RIGHT COMMON CAROTID ARTERY: Unremarkable. No occlusion or significant stenosis. No dissection. RIGHT INTERNAL CAROTID ARTERY: Unremarkable. Extracranial segment is patent with no occlusion or significant stenosis. No dissection. RIGHT EXTERNAL CAROTID ARTERY: Unremarkable. No occlusion. RIGHT VERTEBRAL ARTERY: Unremarkable. No occlusion or significant stenosis. No dissection. LEFT COMMON CAROTID ARTERY: Unremarkable. No occlusion or significant stenosis. No dissection. LEFT INTERNAL CAROTID ARTERY: There are no acute findings of the right and left internal carotid artery. ALL ABOVE CRITERIA BY NASCET. Extracranial segment is patent with no occlusion or significant stenosis. No dissection. LEFT EXTERNAL CAROTID ARTERY: Unremarkable. No occlusion. LEFT VERTEBRAL ARTERY: Unremarkable. No occlusion or significant stenosis. No dissection. GREAT VESSELS OF AORTIC ARCH: Unremarkable. No significant stenosis. CAROTID STENOSIS REFERENCE USING NASCET CRITERIA: % ICA stenosis = (1 - narrowest ICA diameter/diameter of distal cervical ICA) x 100. Mild - <50% stenosis. Moderate - 50-69% stenosis. Severe - 70-94% stenosis. Near occlusion - 95-99% stenosis. Occluded - 100% stenosis. IMPRESSION: There are no acute findings of the right and left internal carotid artery. These images were reviewed on 02/20/2022. Head MRA (09/09/2021): FINDINGS: RIGHT INTERNAL CAROTID ARTERY: No acute findings. No significant stenosis at the intracranial/visualized segments. No aneurysm. RIGHT ANTERIOR CEREBRAL ARTERY: Unremarkable. No significant stenosis at the visualized segments. Anterior communicating artery is present. No aneurysm. RIGHT MIDDLE CEREBRAL ARTERY: Unremarkable. No significant stenosis at the visualized segments. No aneurysm. RIGHT POSTERIOR CEREBRAL ARTERY: Occlusion of the right P1 segment. This likely affects the thalamostriate perforators. No aneurysm. RIGHT VERTEBRAL ARTERY: Unremarkable as visualized. No significant stenosis at the intradural/visualized segments. No aneurysm. LEFT INTERNAL CAROTID ARTERY: No acute findings. No significant stenosis at the intracranial/visualized segments. No aneurysm. LEFT ANTERIOR CEREBRAL ARTERY: Unremarkable. No significant stenosis at the visualized segments. Anterior communicating artery is present. No aneurysm. LEFT MIDDLE CEREBRAL ARTERY: Unremarkable. No significant stenosis at the visualized segments. No aneurysm. LEFT POSTERIOR CEREBRAL ARTERY: Unremarkable. No significant stenosis at the visualized segments. No aneurysm. LEFT VERTEBRAL ARTERY: Unremarkable as visualized. No significant stenosis at the intradural/visualized segments. No aneurysm. BASILAR ARTERY: Unremarkable. No significant stenosis. No aneurysm. OTHER VASCULATURE: No vascular malformation. IMPRESSION: Occlusion of the right P1 segment. This likely affects the thalamostriate perforators. However, there is distal flow suggesting collateral flow. These images were reviewed on 02/20/2022. EKG (09/09/2021): Normal sinus rhythm; left anterior fascicular block; left ventricular hypertrophy with repolarization abnormality (R in aVL, Chauncey product, Romhilt-Mena). Abnormal EKG Cardiac echo (09/09/2021): Normal LV size. Left ventricular systolic function is normal. The estimated ejection fraction is 65 %. There is mild to moderate mitral annular calcification. Mild focal aortic valve calcification. 30-day cardiac event monitor (09/24/2021-10/23/2021): Baseline sample showed sinus rhythm with a heart rate of 77 bpm. There were 0 critical, 0 serious and 3 stable events that occurred. The report analysis of the critical, serious and stable and manually triggered events are listed below. Automatically detected events: 1 stable: Sinus rhythm 1 stable: Sinus rhythm with first-degree AV block/artifact Manually detected events: 1 stable: Sinus rhythm *None reported ABIs (02/25/2022): Right JYOTHI 0.87, moderate arterial insufficiency. Doppler/PVR waveforms of the right ankle moderately diminished. Left JYOTHI 0.97, mild arterial insufficiency. Doppler/PVR waveforms of the left ankle mildly diminished. Left ankle x-rays (02/25/2022): Impression: Poor delineation with cortical thinning of the medial talus and calcaneus with overlying soft tissue swelling. Correlate with clinical suspicion for infection. No other acute abnormal finding. Right ankle x-rays (02/25/2022): Impression: Mild soft tissue swelling. Demineralized bones. Right foot x-rays (02/25/2022): FINDINGS: SOFT TISSUES: No soft tissue swelling or gas.? No radiopaque foreign body. BONES/JOINTS: Demineralized. No acute fracture or subluxation.. Normal alignment.? Preservation of the joint space.. Mildly sclerotic appearance of the first metatarsal. IMPRESSION: There may be a stress reaction in the first metatarsal. No other acute abnormal finding. Left foot x-rays (02/25/2022): FINDINGS: SOFT TISSUES: No soft tissue swelling or gas.? No radiopaque foreign body. BONES/JOINTS: Demineralized. No acute fracture or subluxation.. Normal alignment.? Preservation of the joint space.. No sclerotic or destructive changes observed. Impression: Demineralized bones. No acute abnormal finding. CBC, CMP, thiamine, B12, folate, TSH (02/25/2022): WBC 3.9 (low), hemoglobin 11.6(low), hematocrit 36 (low), platelets 131 (low), creatine 1.07 (high), EGFR 53 (low), glucose 59 (low), alkaline phosphatase 120 (high), TSH 3.78 (slightly high), free kappa light chains 69.8 (high), free lambda light chains 40 (high), free kappa/lambda ratio 1.75 (high) EMG/nerve conduction studies of the lower extremities (04/30/2022): Electrodiagnostic findings: Right median motor nerve demonstrates normal distal latency, amplitude and conduction velocity.? Normal left peroneal motor response.? Normal tibial motor response bilaterally.? Normal peroneal and tibialF waves.? H reflex is prolonged bilaterally.? Sensory responses are absent bilaterally in the sural, superficial peroneal and medial plantar nerves. On needle EMG, 1+ fibrillations noted in the right anterior tibialis with decreased recruitment.? Decreased recruitment noted in the right gastrocnemius.?All muscles tested in the left lower limb showed no evidence of denervation.? Nodenervation noted in lumbar paraspinals. Electrodiagnostic impression: This is an abnormal study in the lower limbs 1.? Electrodiagnostic findings suggestive of peripheral polyneuropathy, sensory greater than motor.? She does report a history of diabetes. 2.? There is denervation of the right anterior tibialis with decreased recruitment and a decreased recruitment pattern in the right gastrocnemius, consistent with her history of polio CBC, hemoglobin A1c, B12, TSH, BMP (05/20/2022): Hemoglobin 11.5 (low), hematocrit 36.3 (low), bicarb 20 (low), BUN 26 (high), creatinine 1.22 (high), EGFR 45 (low), BUN/creatinine ratio 21.3 (high), glucose 67 (low), hemoglobin A1c 6.4 (high), TSH 5.28 (high) Cervical spine MRI (06/11/2022): FINDINGS: VERTEBRAE: Normal vertebral body height. There is no marrow edema or fracture. There is intervertebral disc height loss and osteophyte formation from C3-4 through C6-7. There are hypoplastic discs at T1-2, T2-3 and T3-4. Partial fusion of the T1-2 and T2-3 vertebral bodies. VERTEBRAL ALIGNMENT: Normal, including the craniocervical junction and cervicothoracic junction. No spondylolisthesis. There is straightening of the normal cervical lordosis. CERVICAL SPINAL CORD: Ventral cord flattening secondary to cervical spondylosis changes at multiple levels. Loss of the normal cervical enlargement of the spinal cord. No abnormal spinal cord signal intensity is demonstrated. No abnormal intraspinal fluid collection. NECK SOFT TISSUES: No prevertebral soft tissue swelling. There is no cervical adenopathy. Thyroid gland obscured by a saturation band on the axial series. AXIAL IMAGES: C2-3: Mild facet degenerative changes. No significant spinal canal or foraminal narrowing. C3-4: Broad left central protrusion with left ventral cord flattening and mild spinal canal stenosis. There is severe left and moderate right foraminal narrowing. Mass effect upon the left C4 nerve root. C4-5: Small central protrusion and endplate osteophyte formation with ventral cord flattening. Ligamentum flavum thickening and moderate spinal canal stenosis. There is asymmetric right facet arthropathy. Severe right and moderate to severe left foraminal narrowing with C5 nerve root impingement. C5-6: Right central disc protrusion with ventral cord flattening. There is mild spinal canal stenosis. Mild bilateral foraminal narrowing. C6-7: There is a large left central disc protrusion with ventral cord flattening and moderate spinal canal stenosis. There is moderate to severe bilateral foraminal narrowing with C7 nerve root impingement. C7-T1: Bilateral facet degenerative changes. No significant spinal canal or foraminal stenosis.. IMPRESSION: Multilevel cervical spondylosis changes with spinal stenosis and nerve root impingement as described. Surgical evaluation is recommended. These images were reviewed on 06/23/2022. Moderate predominantly left-sided central canal stenosis is noted at C3-4 due to C3-4 disc protrusion. Mild central canal stenosis is noted at C4-5. Moderate to severe predominantly left-sided central canal stenosis is noted at C6-7 due to broad-based disc herniationat C6-7. Multilevel bilateral neural foraminal narrowing is noted. No abnormalcord signal was noted. Serum protein electrophoresis, serum immunoelectrophoresis, urine immunoelectrophoresis (06/23/2022): No monoclonality detected on serum or urine immunofixation; no M spike observed. CMP, TSH, free T4, B12 (07/01/2022): EGFR 54 (low), BUN/creatinine ratio 21.2 (high), creatinine 1.04 (high), BUN 22 (high), glucose 117 (high), TSH 3.97 (high) Unattended sleep study (11/25/2022): The study does not meet the criteria used to define the presence of sleep apnea. Clinical correlation is suggested. Carotid ultrasound (02/23/2023): Moderate (50-69%) stenosis right extracranial internal carotid. Moderate (50-69%) stenosis left extracranial internal carotid. Patent and antegrade vertebrals bilaterally. BMP, lipid profile, TSH, free T4, B12 (07/02/2023): BUN 20 (high), creatinine 1.07 (high), EGFR 52 (low), triglycerides 139 (normal), cholesterol 145 (normal), LDL 80 (normal), HDL 37 (low), B12 1389 (high), TSH 5.41 (high) CBC B12, folate, iron, TIBC, iron saturation, ferritin (07/27/2023): WBC 3.5 (low), hemoglobin 10.1 (low), hematocrit 31.8 (low), platelets 133 (low), absolute lymphocyte 0.6 (low), iron 40 (low), iron saturation 10.2 (low) CBC, CMP, B12, iron, ferritin, TSH (04/01/24): platelets 148 (low), BUN 23 (high), creatinine 1.32 (high), eGFR 41 (low), glucose 163 (high) Modified barium swallow (08/29/24): Diagnosis/Impression Diagnosis: Esophageal dysphagia R13.14; Oropharyngeal swallow [...] Therapy Services: No Recommended Referrals: GI Consult TSH, B12 (10/04/24): TSH 4.76 (high) CBC, CMP (10/21/24): WBC 4.2 (low), hemoglobin 8.1 (low), hematocrit 36.7 (low), bicarb 18.5 (low), BUN 21 (high), creatinine 1.35 (high), eGFR 39 (low), [id number] (high) Carotid ultrasound (11/22/24): Moderate (50-69%) stenosis right extracranial internal carotid. Moderate (50-69%) stenosis left extracranial internal carotid. Patent and antegrade vertebrals bilaterally. Assessment and Plan Assessment and Plan (1) Anemia: Status: Acute (2) Post-polio syndrome: Status: Inactive (3) Polyneuropathy: Status: Inactive (4) Cerebrovascular disease: Status: Inactive (5) Post herpetic neuralgia: Status: Chronic (6) Osteopenia: Status: Acute Orders: Orders Comprehensive Metabolic Profil 11/28/24 D64.9 - Anemia, unspecified CBC-Complete Blood Cnt No Diff 11/28/24 D64.9 - Anemia, unspecified Dexa Bone Density Study 11/28/24 Z78.0 - Asymptomatic menopausal state Medications: New gabapentin 100 mg PO QODAY 45 caps 1RF Plan Details Additional Comments: The patient had a right thalamic ischemic stroke in August 2021 manifesting with left perioral and left hand numbness and gait imbalance. Her left hand numbness resolved. She ambulates with the use of a rollator or cane. Her head MRA revealed occlusion of the right P1 segment of the posterior cerebral artery;this likely affected the thalamostriate vessels that anatomically correlate withthe region of infarction; distal flow was noted in the right posterior cerebral artery suggesting the presence of collateral flow. She is taking aspirin; she reduced her dose of aspirin to 81 mg every other day after being treated for bleeding gastric gastropathy in December 2023. She has not had symptoms suggestive of recurrent cerebrovascular ischemia since August 2021 and does not have any history of stroke prior to August 2021. She has bilateral carotid bruits. A carotid ultrasound in February 2022 and November 2024 revealed 50-69% stenosis of the internal carotid arteries bilaterally. She takes atorvastatin. - Aspirin 81 mg every other day will be continued. - Continuation of atorvastatin is recommended. - The patient is seen at a vascular specialist's office. She is to have another carotid ultrasound in 6 months. - She takes amlodipine and losartan for hypertension. She has a history of childhood polio and over the years had worsening of her bilateral lower extremity weakness; no further worsening of her motor function has been reported within recent months. She has postpolio syndrome. She has bilateral Achilles tendon contractures (right greater than left). She has used shoe insoles and did not wish to resume the use of a right orthotic shoe or right lower extremity bracing as she had used in the past. Physical therapy in 2023 was not of benefit. She ambulates with a cane or rollator. She has sensory loss in the feet. EMG/nerve conduction studies of the lower extremities reveal a sensorimotor polyneuropathy and right gastrocnemius and right tibialis anterior muscle EMG abnormalities consistent with history of polio. She has diabetes mellitus whichpredisposes her to development of polyneuropathy. She is on levothyroxine for hypothyroidism. She has some dysphagia with solid foods. She has some esophageal dysphagia. - She is to follow-up with her cloth burler. She has peripheral vascular disease. She was evaluated at a vascular surgeon's office in April 2023. She has not had claudication. A walking program was recommended. Continuation of aspirin and a statin were recommended. A one year follow-up at her vascular surgeon's office was planned. She has had pain in the ankles and feet; this has diminished and she has not had significant pain in these areas recently. Left ankle x-rays report from February 2022 states that poor delineation with cortical thinning of the medial talus and calcaneus with overlying soft tissue swelling was noted; correlate with clinical suspicion for infection. She does not like to use compression stockings. Clinically, my suspicion for infection was low. Right ankle x-rays revealed mild soft tissue swelling and demineralized bones. Right foot x-rays revealed mildly sclerotic appearance of the first metatarsal. She has had right shoulder/periscapular region sharp pain since February 2022. She did not have a right shoulder/torso rash. The symptoms may be due to shingles without associated rash and now her pattern may be consistent with postherpetic neuralgia. Her pain in the right shoulder/periscapular region has diminished following initiation of gabapentin and her right shoulder/periscapular pain has diminished significantly following right infrascapular injections administered by her painter aircraft, Dr. Escobar. Demineralization was noted on her above x-rays. - A bone density test will be ordered. - She is taking acetaminophen for her pain and this is effective and she wished to continue with this therapy. - Gabapentin 100mg every other day has been of benefit for her pain and will be continued. Her cervical MRI in June 2022 reveals moderate predominantly left-sided central canal stenosis at C3-4 due to C3-4 disc protrusion. Mild central canal stenosis is noted at C4-5. Moderate to severe predominantly left-sided central canal stenosis is noted at C6-7 due to broad-based disc herniation at C6-7. Multilevel bilateral neural foraminal narrowing is noted. No abnormal cord signal was noted. Her cervical spinal stenosis may be contributing her her gaitimbalance. She has not had recent change in her mobility. She ambulates with acane. She has had bladder incontinence since 2017 and some bowel incontinence since the latter part of 2021. - Her course will be followed. She has had occasional insomnia and daytime hypersomnolence; her insomnia hasdiminished. She snores at night. Per prior discussion, she did not wish to pursue an in-house sleep study. Her unattended sleep study did not reveal sleepapnea. Monthly B12 injections for treatment of fatigue were no longer of benefit andwere discontinued. She has taken B12 oral supplementation daily and this has been of benefit for her fatigue. She has had iron deficiency anemia and took iron iron supplement however this caused a side effect of constipation and was discontinued. She saw cloth burler, Dr. Ramos, and was found to have gastropathy with evidence of recent bleeding; this was treated with a heater probe in December 2023. Her hemoglobin, hematocrit, iron, and ferritin (March 2024) were normal however more recently she is again anemic and has a low iron. - She was advised to follow-up with her cloth burler, Dr. Ramos, regarding her anemia and abdominal pain. - A CBC and CMP will checked. She has occasional momentary disequilibrium/vertigo that occurs with movement. I suspect that this is due to a peripheral vestibulopathy. This has diminished and occurs less than once per month. - I do not feel that medication treatment is warranted at this time. - She was advised to make position changes slowly. I will have her return for reassessment in 4 months. Intake Vital Signs 06/28/24 13:05 10/25/24 12:27 11/28/24 12:59 Height 5 ft 1 in 5 ft 1 in 5 ft 1 in Weight: 146 lb BMI 27.6 BP 147/65 H Blood Pressure Location Lt brachial Position Sitting Respiration 17 Pulse 84 Pulse Source Monitor Temp 98.6 F Temp Source Temporal Pulse Oximetry (%) 97 Oxygen Delivery Method room air Intake Visit Reasons: 5 MO FU Chief Complaint: Fatigue, anemia Protective Signal Operator Required: No Accompanied by: Allergies Sulfa (Sulfonamide Antibiotics) Allergy (Unknown, Verified 11/28/24 13:06) Hives adhesive tape Adverse Reaction (Intermediate, Verified 11/28/24 13:06) Rash latex Adverse Reaction (Verified 11/28/24 13:06) skin reaction Have you fallen in the past year?: No PFSH Medical History Thyroid disease Post-menopausal Insulin dependent [...] Post-polio syndrome History of poliomyelitis HTN (hypertension) Surgical History History of esophagogastroduodenoscopy (EGD) Hx of colonoscopy Hx of right cataract extraction Hx of left cataract extraction Hx of lithotripsy Family History Father Diabetes [...] in: other frequency: 1-2 times per week luna/restoration: Evangelical seatbelt use: always Clinical Quality Measures Falls Risk Screening/Assistive Devices Have you fallen in the past year?: No Coding Level of Care Code Off vis,est,level 4 Diagnoses Anemia D64.9 Post-polio syndrome G14 Polyneuropathy G62.9 Cerebrovascular disease I67.9 Post herpetic neuralgia B02.29 Osteopenia M85.80 11/29/24 0657 <Electronically signed by Surendra garcia MD> Date _ Surendra Hidalgo MD [facility] Signature: Date (if applicable) CC: ~ [facility] [employer] [facility] Work Phone: 1(255) 888-453109-16-2025 History and physical note Author Moy Ramos [facility] Note Date/Time October 25, 2024 12:49pm [facility] Medical Records Department [address] [place] [address] History & Physical Exam 10/25/24 1247 MR#: [id number] Acct: [id number] Name: SANDIE ANGELES DAWSON Rep #:[id number] : 1945 79 From: Moy Ramos DO PCP: Dr. Desiree Tapia MD Status:[facility] Location: [place] [address] HPI - General General Date of Admission: [...] weeks ago. She denies black/tarry stool. [facility] Medical History Thyroid disease Post-menopausal Insulin dependent [...] in: other frequency: 1-2 times per week luna/restoration: Evangelical seatbelt use: always ROS Constitutional Constitutional: Denies [...] pending result may have to refer her [facility] ED. She was scheduled for EGD [...] Desiree Tapia MD; Moy Ramos DO~ Signed [facility] Work Phone: 1(999) 405-345209-16-2025 Consult note Author Margarita Gonzalez [facility] Note Date/Time October 25, 2024 12:44pm [facility] Medical Records Department [address] [place] [address] Pre-Anesthesia Evaluation 10/25/24 1237 MR#: [id number] Acct: [id number] Name: SANDIE ANGELES DAWSON Rep #:[id number] : 1945 79 From: Margarita mckeon ORNAMENTAL PLASTER STICKER PCP: Dr. Desiree Tapia MD Status:REG SDC Y Race: C Location: [place] [address] ASA Classification* ASA Classification ASA Classification: 3 [...] Procedure(s): EGD Anesthesia History Anesthesia History - sales executive insurance: Anesthesia History - sales executive insurance Hx Hospitalization No 10/21/24 11:31 Any Problems [...] am of surgery omeprazole PONV PONV - sales executive insurance: PONV - sales executive insurance Female Yes 10/21/24 11:31 HX of Motion [...] 10/25/24 12:27 Respiratory Assessment Respiratory Assessment - sales executive insurance: Respiratory Tract Infection Hx - sales executive insurance Hx Respiratory Tract Infection No 10/21/24 11:31 STOP Sleep Apnea STOP Sleep Apnea - sales executive insurance: STOP Sleep Apnea - sales executive insurance Hx Hypertension Yes: CONTROLLED WITH MED 10/21/24 [...] Tobacco Use History Tobacco Use History - sales executive insurance: Tobacco Use History - sales executive insurance Tobacco Use Non-smoker 09/10/21 10:00 Smoking Status Never smoker 10/21/24 11:31 Hx Tobacco Use No 10/21/24 11:31 Years Smoking Packs Smoked per Day Smoking Cessation Date was within the last 15 years Hx Smoking Cessation Date Hx Smoking Cessation No: patient doesn't smoke 10/21/24 11:31 Counseling Hematologic Medial History Hematologic Hx - sales executive insurance: 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 10/25/24 1244 <Electronically signed by Margarita davis CRNA> Date _ Margarita Gonzalez CRNA Cosigner Signature: Date CC: ~ Signed [facility] Work Phone: 1(369) 237-642609-16-2025 Consult note [facility] Medical Records Department [address] [place] [address] Anesthesia Postop Eval I 10/25/24 1352 MR#: [id number] Acct: [id number] Name: SANDIE ANGELES DAWSON Rep #:[id number] : 1945 79 From: Stanislav Altamirano PCP: Dr. Desiree Tapia MD Status:REG SDC Y Race: C Location: [place] [address] Anesthesia: Postop Eval I Current Vital Signs [...] Yes 10/25/24 1353 > Date _ Stanislav Warebilly Jonesion Signature: Date CC: ~ Signed [facility]09-16-2025 Procedure note [facility] Medical Records Department [address] [place] [address] EGD Report MR#: [id number] Acct: [id number] Name: SANDIE ANGELES DAWSON Rep #:[id number] : 1945 79 From: Moy Ramos DO PCP: Dr. Desiree Tapia MD Status:[facility] Patient Name: Sandie Angeles Procedure Date: 10/25/2024 [...] present medications. Procedure Code(s): --- Professional --- 29812, Small intestinal endoscopy, enteroscopy beyond second portion of duodenum, not including ileum; with control of bleeding (eg, injection, bipolar cautery, unipolar cautery, laser, heater probe, stapler, plasma checker) CPT copyright 2021 [employer]. All rights reserved. The codes documented in this report are preliminary and upon flake miller wheat and oats review may be revised to meet current compliance requirements. Moy Ramos DO 10/25/2024 1:53:07 PM This report has been signed electronically. Number of Addenda: 0 Note Initiated On: 10/25/2024 1:23 PM 10/25/24 1353 Date _ Moy Ramos DO Cosigner Signature: Date (if indicated) CC: Dr. Desiree Tapia MD; Moy Ramos DO ~ Date Dictated: 10/25/24 1323 Date Transcribed: Criminal Judge: RF Signed [facility]09-16-2025 Procedure note [facility] Medical Records Department [address] [place] [address] Provation Physician Letter MR#: [id number] Acct: [id number] Name: VIJAY ANGELESQUELINE DAWSON Rep #:[id number] : 1945 79 From: Moy Ramos DO PCP: Dr. Desiree Tapia MD Status:[facility] 10/25/2024 [address]iree Tapia [address] [place] [address] Re : Upper GI endoscopy procedure for [...] signed electronically. 10/25/24 1353 Date _ Moy Ramos DO Cosigner Signature: Date (if indicated) CC: Dr. Desiree Tapia MD; Moy Ramos ~ Date Dictated: 10/25/24 1323 Date Transcribed: Criminal Judge: RF Signed [facility]09-16-2025 History and physical note [facility] Medical Records Department [address] [place] [address] History & Physical Exam 10/25/24 1247 MR#: [id number] Acct: [id number] Name: SANDIE ANGELES DAWSON Rep #:[id number] : 1945 79 From: Moy Ramos DO PCP: Dr. Desiree Tapia MD Status:[facility] Location: [place] [address] HPI - General General Date of Admission: [...] weeks ago. She denies black/tarry stool. [facility] Medical History Thyroid disease Post-menopausal Insulin dependent [...] in: other frequency: 1-2 times per week luna/restoration: Evangelical seatbelt use: always ROS Constitutional Constitutional: Denies [...] pending result may have to refer her [facility] ED. She was scheduled for EGD [...] Desiree Tapia MD; Moy Ramos DO~ Signed [facility]09-16-2025 [facility] Medical Records Department [address] [place] [address] History Physical Exam 10/25/24 1247 MR#: [id number] Acct: [id number] Name: SANDIE ANGELES DAWSON Rep #: [id number] : 1945 79 From: Moy Ramos DO PCP: Dr. Desiree Tapia MD Status[place] Location: [place] [address] HPI - General General Date of Admission: [...] weeks ago. She denies black/tarry stool. [facility] Medical History Thyroid disease Post-menopausal Insulin dependent [...] in: other frequency: 1-2 times per week luna/restoration: Evangelical seatbelt use: always ROS Constitutional Constitutional: Denies fatigue, fever(s), poor appetite, weight gain or weight loss Gastrointestinal Gastrointestinal: D (more content not included)...[facility] 10-25-2024 Consult note [facility] Medical Records Department [address] [place] [address] Pre-Anesthesia Evaluation 10/25/24 1237 MR#: [id number] Acct: [id number] Name: SANDIE ANGELES Rep #:[id number] : 1945 79 From: Margarita mckeon CRNA PCP: Dr. Desiree Tapia MD Status:REG SDC Y Race: C Location: [place] [address] ASA Classification* ASA Classification ASA Classification: 3 [...] 09:10/21/24 Hgb 8.1 g/dL (12.0-15.0) L 10/21/24 09:10/21/24 Hct 26.7 % (37-47) L 10/21/24 09:05 [...] Procedure(s): EGD Anesthesia History Anesthesia History - sales executive insurance: Anesthesia History - sales executive insurance Hx Hospitalization No 10/21/24 11:31 Any Problems [...] am of surgery omeprazole PONV PONV - sales executive insurance: PONV - sales executive insurance Female Yes 10/21/24 11:31 HX of Motion [...] 10/25/24 12:27 Respiratory Assessment Respiratory Assessment - sales executive insurance: Respiratory Tract Infection Hx - sales executive insurance Hx Respiratory Tract Infection No 10/21/24 11:31 STOP Sleep Apnea STOP Sleep Apnea - sales executive insurance: STOP Sleep Apnea - sales executive insurance Hx Hypertension Yes: CONTROLLED WITH MED 10/21/24 [...] Tobacco Use History Tobacco Use History - sales executive insurance: Tobacco Use History - sales executive insurance Tobacco Use Non-smoker 09/10/21 10:00 Smoking Status Never smoker 10/21/24 11:31 Hx Tobacco Use No 10/21/24 11:31 Years Smoking Packs Smoked per Day Smoking Cessation Date was within the last 15 years Hx Smoking Cessation Date Hx Smoking Cessation No: patient doesn't smoke 10/21/24 11:31 Counseling Hematologic Medial History Hematologic Hx - sales executive insurance: 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 10/25/24 1244 ryan ORNAMENTAL PLASTER STICKER> Date _ Margarita Gonzalez ORNAMENTAL PLASTER STICKER Cosigner Signature: Date CC: ~ Signed [facility]09-12-2025 Evaluation note* Diagnosis Onset Date Resolution Status Admit Date Iron deficiency anemia chronic Se ptember 2024 8:20am Anemia acute October 11:57am Dysphagia acute October 11:57am [facility] Work Phone: 1(763) 523-547809-12-2025 Evaluation note* Diagnosis Onset Date Resolution Status Admit Date Iron deficiency anemia chronic Se ptember 2024 8:20am Anemia acute October 11:57am Dysphagia acute October 11:57am Anemia acute November 28, 2024 12:54pm Osteopenia acute November 28, 2024 12:54pm Post herpetic neuralgia chronic O ctober 2024 12:54pm Cerebrovascular disease inactive O ctober 2024 12:54pm Polyneuropathy inactive November 282024 12:54pm Post-polio syndrome inactive 2024 12:54pm Dysphagia acute December 15, 2024 8:26am 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) acute December 15, 8:26am [facility] Work Phone: 1(743) 529-818509-01-2025 [facility] [address] [place] [address] OFFICE VISIT Date of Service: 11/03/24 MR#: [id number] Acct: [id number] Patient: SANDIE ANGELES DAWSON Rep #: [id number] : 1945 Provider: Moy Ramos DO Age/Sex: 79/F [place] [facility] Status: Signed Intake Vital Signs 10/25/24 12:27 Height 5 ft 1 in Intake Visit Reasons: [place] Chief Complaint: Anemia Allergies Sulfa (Sulfonamide Antibiotics) Allergy (Unknown, Verified 10/25/24 12:26) Hives adhesive tape Adverse Reaction (Intermediate, Verified 10/25/24 12:26) Rash latex Adverse Reaction (Verified 10/25/24 12:26) skin reaction Have you fallen in the past year?: No Office Procedures Procedure Administration Route: PO Administration Location: [facility] Dispensed Units: 1 Capsule Lot Number: [id number] Expiration Date: 08/18/25 Capsule ID Number: [id number] Consent Form Signed: Yes Comments: Tolerated well. Reviewed instructions. Clinical Quality Measures Falls Risk Screening/Assistive Devices Have you fallen in the past year?: No 11/03/24 1036 d DO> Date _ Moy Friend DO Cosigner Signature: Date (if applicable) CC: ~ [facility]07-21-2025 Procedure note [facility] Speech Pathology [address] [place] [address] Modified Barium Swallow Study MR#: [id number] Acct: [id number] Name: SANDIE ANGELES DAWSON Rep #:[id number] : 1945 79 From: Mandie Welch, [facility]-OPEN TENTER OPERATOR Modified Barium Swallow Patient Information Study Date: [...] in the lower esophagus w/ retrograde flow. [place] Thick Liquid via small single sip: cup: [...] Status Active ST Patient: Active Contact Information [facility] Speech Therapy:: Mandie Phma M.A. CCC-OPEN TENTER OPERATOR? Speech-Language Pathologist?? [facility] [address] [place] [address]? [email or web address]?? [phone] 08/29/24 1418 JAKE Gaston-OPEN TENTER OPERATOR> Date/Time ELVIN Daniel M.A.OPEN TENTER OPERATOR Co-Signature Required for all Medicare patients Date/Time Co-Signature CC: ~ [facility]05-20-2025 Evaluation note* Diagnosis Onset Date Resolution Status Admit Date Dysphagia acute June 28, 2024 12:57pm Polyneuropathy chronic June 28, 2024 12:57pm Post herpetic neuralgia chronic Megan jama 2024 12:57pm 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 102024 12:57pm Cerebrovascular disease inactive M ay 2024 12:57pm Impacted cerumen, right ear acute June 28, 2024 2:00pm [facility] Work Phone: 1(330) 282-163205-20-2025 Evaluation note* Diagnosis Onset Date Resolution Status Admit Date Dysphagia acute June 28, 2024 12:57pm Polyneuropathy chronic June 28, 2024 12:57pm Post herpetic neuralgia chronic M ay 2024 12:57pm 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 102024 12:57pm Cerebrovascular disease inactive M 2024 12:57pm Impacted cerumen, right ear acute June 28, 2024 2:00pm Iron deficiency anemia chronic Se pt2024 8:20am [facility] Work Phone: 1(136) 579-438605-20-2025 Evaluation note* Diagnosis Onset Date Resolution Status Admit Date Dysphagia acute June 28, 2024 12:57pm Polyneuropathy chronic June 28, 2024 12:57pm Post herpetic neuralgia chronic M ay 2024 12:57pm 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 102024 12:57pm Cerebrovascular disease inactive [facility] 2024 12:57pm Impacted cerumen, right ear acute June 28, 2024 2:00pm Iron deficiency anemia chronic Se pt2024 8:20am Anemia acute October 11:57am Dysphagia acute October 11:57am [facility] Work Phone: 1(856) 597-102602-11-2025 Evaluation note* Diagnosis Onset Date Resolution Status Admit Date Cerebrovascular disease chronic F ebruary 2024 12:49pm Polyneuropathy chronic March 122024 12:49pm Post herpetic neuralgia chronic F ebruary 2024 12:49pm Post-polio syndrome chronic Febru mitch 2024 12:49pm [facility] Work Phone: 1(869) 966-418902-11-2025 Evaluation note* Diagnosis Onset Date Resolution Status Admit Date Cerebrovascular disease chronic F ebruary 2024 12:49pm Polyneuropathy chronic March 122024 12:49pm Post herpetic neuralgia chronic F ebruary 2024 12:49pm Post-polio syndrome chronic Febru mitch 2024 12:49pm Carotid artery stenosis acute M arch 2024 12:59pm Peripheral arterial disease acute April 19, 2024 12:59pm [facility] Work Phone: 1(284) [phone] Evaluation note* Diagnosis Onset Date Resolution Status Admit Date Cerebrovascular disease chronic F ebruary 2024 12:49pm Polyneuropathy chronic March 122024 12:49pm Post herpetic neuralgia chronic F ebruary 2024 12:49pm Post-polio syndrome chronic Febru mitch2024 12:49pm Carotid artery stenosis acute M arch 2024 12:59pm Peripheral arterial disease acute April 19, 2024 12:59pm Dysphagia acute June 28, 2024 12:57pm 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 102024 12:57pm [facility] Work Phone: 1(770) 748-337511-25-2024 [facility] Medical Records Department [address] [place] [address] History Physical Exam 01/04/24 0740 MR#: [id number] Acct: [id number] Name: SANDIE ANGELES DAWSON Rep #: [id number] : 1945 78 From: Moy Friend DO PCP: Dr. Desiree Tapia MD Status:[facility] Location: [place] [id number] History and Physical Date of Admission: 01/04/24 Chief Complaint: dysphagia, anemia Details: SANDIE ANGELES, is a 78 F who presents to the office today for establishment with [facility]. Pt has a PMHx of chronic renal [...] most recent episode of while eating a [place] islander fernandez. She is not too concerned about [...] Appearance: average body habitus and well nourished [facility] Head: normal to inspection Ears: hearing [...] CC: Dr. Desiree Tapia MD; Moy Ramos, [facility]23 Procedure noteWCleveland Clinic Children's Hospital for RehabilitationConsult note Author Stanislav Altamirano [facility] Note Date/Time October 25, 2024 1:53pm [facility] Medical Records Department [address] [place] [address] Anesthesia Postop Eval I 10/25/24 135 MR#: [id number] Acct: [id number] Name: SANDIE ANGELES DAWSON Rep #:[id number] : 1945 79 From: Stanislav Altamirano PCP: Dr. Desiree Tapia MD Status:[place] [facility] [place]: C Location: [place] [address] Anesthesia: Postop Eval I Current Vital Signs [...] document: Postop Eval 1 completed: Yes 10/25/24 0013 <Electronically signed by Stanislav Altamirano > Date _ Stanislav Chauhan Signature: Date CC: ~ Signed [facility] Work Phone: Evaluation note* Diagnosis Onset Date Resolution Status Ataxia acute Disequilibrium acute Weakness acute [facility] Work Phone: Evaluation note* Diagnosis Onset Date Resolution Status Ataxia acute 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 Diabetes mellitus acute Disequilibrium acute Rosacea acute Weakness acute [facility] Work Phone: Evaluation noteNo assessment information available [facility] Work Phone: Evaluation note* Diagnosis Onset Date Resolution Status Absent pedal pulses acute Bilateral ankle pain acute Bilateral carotid bruits acu te Bilateral foot pain acute Cerebrovascular disease twisting machine operator patricia Polyneuropathy chronic Post-polio syndrome chronic [facility] Work Phone: Evaluation note* Diagnosis Onset Date Resolution Status Absent pedal pulses acute Bilateral ankle pain acute Bilateral carotid bruits acu te Bilateral foot pain acute Cerebrovascular disease twisting machine operator patricia Polyneuropathy chronic Post-polio syndrome chronic Carotid artery stenosis acut e Peripheral arterial disease acute [facility] Work Phone: Evaluation note* Diagnosis Onset Date Resolution Status Hypersomnia acute Cerebrovascular disease twisting machine operator patricia Polyneuropathy chronic Post herpetic neuralgia twisting machine operator patricia [facility] Work Phone: Hospital Discharge instructionsWCleveland Clinic Children's Hospital for Rehabilitation Work Phone: Progress note Author Moy Ramos [facility] Note Date/Time November 03, 2024 10:36am [facility] [address] [address] OFFICE VISIT Date of Service: 11/03/24 MR#: [id number] Acct: [id number] Patient: BRIDGETTESANDIE Rep #: [id number] : 1945 Provider: Moy Ramos DO Age/Sex: 79/F [place] [facility] [place] Status: Signed Intake Vital Signs 10/25/24 12:27 Height 5 ft 1 in Intake Visit Reasons: Cap Endo Chief Complaint: Anemia Allergies Sulfa (Sulfonamide Antibiotics) Allergy (Unknown, Verified 10/25/24 12:26) Hives adhesive tape Adverse Reaction (Intermediate, Verified 10/25/24 12:26) Rash latex Adverse Reaction (Verified 10/25/24 12:26) skin reaction Have you fallen in the past year?: No Office Procedures Procedure Administration Route: PO Administration Location: [facility] Dispensed Units: 1 Capsule Lot Number: [id number] Expiration Date: 08/18/25 Capsule ID Number: [id number] Consent Form Signed: Yes Comments: Tolerated well. Reviewed instructions. Clinical Quality Measures Falls Risk Screening/Assistive Devices Have you fallen in the past year?: No 11/03/24 1036 <Electronically signed by Moy brown DO> Date _ Moy Pablo Signature: Date (if applicable) CC: ~ [facility] Work Phone: Reason for referral (narrative)No reason for referral information availableWCleveland Clinic Children's Hospital for Rehabilitation Work Phone: Summary Purpose Family History No [...] Yes September 09, 2021 11:37am Power of Grocery Caddy Yes September 09 11:37am Name of Medical Power of Grocery Caddy VANDANA ANGELES September 09, 2021 11:37am Advance Directive Response Recorded Date/ Time Name of Medical Power of Grocery Caddy Vandana Angeles September 09, 2021 2:25pm Living Will Yes September 09, 2021 2:25pm Power of Grocery Caddy Yes September 09 2:25pm Advance Directive Response Recorded Date/ Time Living Will Yes September 09, 2021 1:25pm Power of Grocery Caddy Yes September 09 1:25pm Advance Directive Response Recorded Date/ Time Living Will Yes September 09, 2021 2:25pm Power of Grocery Caddy Yes September 09 2:25pm Advance Directive Response Recorded Date/ Time Living Will Yes September 09, 2021 1:25pm Power of Grocery Caddy Yes September 09 1:25pm Living Will Yes December 30, 024 10:03am Power of Grocery Caddy Yes December 31, 2023 10:03am Name of Medical Power of Grocery Caddy VANDANA December 31, 2023 10:03am Advance Directive Response Recorded Date/ Time Living Will Yes September 09, 2021 2:25pm Do you have a Healthcare Power of Grocery Caddy? Yes September 09, 2021 2:25pm Living Will Yes December 30, 024 11:03am Do you have a Healthcare Power of Grocery Caddy? Yes December 31, 2023 11:03am Name of Medical Power of Grocery Caddy VANDANA December 31, 2023 11:03am Advance Directive Response Recorded Date/ Time Living Will Yes September 09, 2021 2:25pm Do you have a Healthcare Power of Grocery Caddy? Yes September 09, 2021 2:25pm Advance Directive Response Recorded Date/ Time Do you have a Healthcare Power of Grocery Caddy? Yes October 21, 2024 11:31am Advance Directive Response Recorded Date/ Time Do you have a Healthcare Power of Grocery Caddy? Yes October 21, 2024 10:31am Do you have a Healthcare Power of Grocery Caddy? No December 11, 2024 4:45pm Chief Complaint and Reason for Visit Chief [...] Visit Admit Date Cerebrovascular disease March 22 12:49pm Polyneuropathy March 22, 2024 12:49pm Post [...] for Visit Admit Date Cerebrovascular disease March 22, 2 025 12:49pm Polyneuropathy March 22, 2024 12:49pm [...] 28 2:00pm Iron deficiency anemia October 21, 025 8:20am Chief Complaint Admit Date 3 [...] Admit Date Iron deficiency anemia October 21 8:20am Anemia October 25, 2024 11:57am Dysphagia October 25, 2024 11:57am Chief Complaint Admit Date DYSPHAGIA August 29, 2024 12:4 3pm Low Hemoglobin October 21, 2024 8:20am E ORDER October 21, 2024 8:58am Cap Endo November 03, 2024 7:24am 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 November 22, 2024 12:52pm fatty liver November 25, 2024 7 :51am 5 MO FU November 28, 2024 1 2:54pm EORDERS November 28, 2024 1 :56pm ABD PAIN December 11, 2024 3 :04pm TEST ANEMIA DYSPHAGIA December 15, 2024 8:26am ASCITES W/SOB December 15, 2024 9 :31am Reason for Visit Admit Date Iron deficiency anemia October 21 025 8:20am Anemia October 25, 2024 11:57am Dysphagia October 25, 2024 11:57am Anemia November 28, 2024 1 2:54pm Osteopenia November 28, 2024 1 2:54pm Post herpetic neuralgia November 28 12:54pm Cerebrovascular disease November 28 12:54pm Polyneuropathy November 28, 2024 1 2:54pm Post-polio syndrome November 28, 2024 1 2:54pm Dysphagia December 15, 2024 8 :26am 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) December 15, 2024 8:26am Additional Source Comments INFORMATION SOURCE (unrecogn ized section and content) DATE CREATED AUTHOR 10/20/2017 Alvino Clarkeaudrey [facility] DATE CREATED AUTHOR AUTHOR'S ORGANIZ ATION 01/18/2022 [facility] ([place]) DATE CREATED AUTHOR AUTHOR'S ORGANIZ ATION 12/21/2024 [facility] Goals (unrecognized section and content) Goals [...] 28, 2024 End: June 28, 2024 Miguel BRADFORD, PA Attending Provider Active Start: June 28, [...] 28, 2024 End: June 28, 2024 Miguel Ocampo PA, PA Attending Provider Active Start: June 28, 2024 End: June 28, 2024 Team Status: Inactive Member Role/Relationship Status Dates Dr. Desiree Taipa MD Primary Care Provider Active Start: August [...] November 03, 2024 End: November 03, 2024 Team Status: Inactive Member Role/Relationship Status Dates Dr. Desiree Tapia MD Primary care physician Active Start: November 22, 2024 End: November 22, 2024 SUZETTE Cavazos Attending physician Active Sta rt: November 22, 2024 End: November 22, 2024 SUZETTE Cavazos Referring Provider Active Star t: November 22, 2024 End: November 22, 2024 Team Status: Active Member Role/Relationship Status Dates Dr. Desiree Tapia MD Primary care physician Active Start: November 22, 2024 Dr. Arya Argueta MD Attending physician Active Start: November 22, 2024 SUZETTE Cavazos Referring Provider Active Star t: November 22, 2024 Team Status: Inactive Member Role/Relationship Status Dates Dr. Desiree Tapia MD Primary care physician Active Start: November 25, 2024 End: November 25, 2024 Dr. Moy Ramos DO Attending physician Active Start: November 25, 2024 End: November 25, 2024 Dr. Moy Ramos DO Referring Provider Active Start: November 25, 2024 End: November 25, 2024 Team Status: Inactive Member Role/Relationship Status Dates Dr. Desiree Tapia MD Primary care physician Active Start: November 28, 2024 End: November 28, 2024 Dr. Desiree Tapia MD Referring Provider Active Start: November 28, 2024 End: November 28, 2024 Dr. Surendra Hidalgo MD Attending physician Active Start: November 28, 2024 End: November 28, 2024 Team Status: Inactive Member Role/Relationship Status Dates Dr. Desiree Tapia MD Primary care physician Active Start: November 28, 2024 End: November 28, 2024 Dr. Surendra Hidalgo MD Attending physician Active Start: November 28, 2024 End: November 28, 2024 Dr. Surendra Hidalgo MD Referring Provider Active Start: November 28, 2024 End: November 28, 2024 Team Status: Inactive Member Role/Relationship Status Dates Dr. Desiree Tapia MD Primary care physician Active Start: December 11, 2024 End: December 11, 2024 Dr. Zion Colindres MD Emergency Department Physician Active Start: December 11, 2024 End: December 11, 2024 Team Status: Inactive Member Role/Relationship Status Dates Dr. Desiree Tapia MD Primary care physician Active Start: December 15, 2024 End: December 15, 2024 Dr. Desiree Tapia MD Referring Provider Active Start: December 15, 2024 End: December 15, 2024 SUZETTE Carlson Attending physician Active Start: December 15, 2024 End: December 15, 2024 Team Status: Active Member Role/Relationship Status Dates Dr. Desiree Tapia MD Primary care physician Active Start: December 15, 2024 SUZETTE Carlson Nurse Practitioner Active Start: December 15, 2024 Dr. Moy Ramos DO Attending physician Active Start: December 15, 2024 Dr. Moy Ramos DO Referring Provider Active Start: December 15, 2024 FOR RECORDS PERTAINING TO PATIENTS WHO [...] BE BASED ON THE PRIMARY CLINICAL RECORDS. [employer] provides no warranty or guarantee of the accuracy or completeness of information in this document.
--- NOTE | 2025-01-16 06:45 | PCM.PRE.AN2 ---
ASA Classification* ASA Classification ASA Classification: 3 Assessment & Plan Anesthesia* Anesthesia Assessment Anesthesia Assessment: Discussed sedation and/or anesthesia options, risks, benefits, and alternatives with patient/parents/legal guardian/POA. Questions invited. The patient/parents/legal guardian/POA seems to understand and agrees to proceed with anesthesia plan. Reviewed the physical assessment, medical history, allergy history and patient home medications list prior to surgery/procedure/anesthetic and documented any changes. Performed airway and anesthesia risk assessments. Anesthesia Type Anesthesia Type: MAC Anesthesia Focused Assessment* Temperature: 97.6 F Pulse Rate: 68 Blood Pressure: 164/38 Respiratory Rate: 16 Pulse Ox: 100 Airway Assessment Mouth opens: >3 cm Mallampati Score: II Labs Anesthesia Preop lab: CBC WBC, (4.4-11.0) 5.3 K/mm3 12/15/24, 09:41 RBC, (4.2-5.4) 3.87 M/mm3 L 12/15/24, 09:41 Hgb, (12.0-15.0) 9.8 g/dL L 12/15/24, 09:41 Hct, (37-47) 31.3 % L 12/15/24, 09:41 Plt Count, (150-450) 231 K/mm3 12/15/24, 09:41 CHEMISTRY Potassium, (3.3-5.1) 4.8 mmol/L 12/15/24, 09:41 Sodium, (133-145) 143 mmol/L 12/15/24, 09:41 BUN, (4-19) 25 mg/dL H 12/15/24, 09:41 Creatinine, (0.70-1.20) 1.84 mg/dL H 12/15/24, 09:41 Glucose, (70-99) 151 mg/dL H 12/15/24, 09:41 POC Glucose, (74-106) 99 mg/dL 01/04/24, 07:18 TSH, (0.300-4.200) 4.760 uIU/mL H 10/04/24, 13:47 COAG PT, (11.7-14.9) 15.9 SECONDS H 12/15/24, 09:41 Pre-Assessment Diagnosis/Proposed Procedure Planned Operative Procedure(s): CSCOPE Anesthesia History 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 When Was Last Pacemaker Check QUESTION #4 FULL TEXT: You/Your Family Experience fever (hyperthermia) with Anesthesia Last Oral Intake Last Oral intake: Last Oral Intake NPO since 03:30 01/16/25 06:37 Meds taken in AM with sips of water? Meds patient instructed to take am of surgery PONV PONV - utility worker production: PONV - utility worker production Female Yes 01/13/25 10:50 HX of Motion Sickness No 01/13/25 10:50 HX of N/V After Surgery No 01/13/25 10:50 Non-Smoker Yes 01/13/25 10:50 Duration of Surgery greater No 01/13/25 10:50 than 60 minutes Number of Risk Factors 2 01/13/25 10:50 PONV Score Moderate Risk 01/13/25 10:50 Height & Weight Height & Weight: Anesthesia: Height & Weight Height 5 ft 1 in 01/16/25 06:37 Weight: 59.874 kg 01/16/25 06:37 Body Mass Index (BMI) 24.9 01/16/25 06:37 Respiratory Assessment Respiratory Assessment - utility worker production: Respiratory Tract Infection Hx - utility worker production Hx Respiratory Tract Infection No 01/13/25 10:50 STOP Sleep Apnea STOP Sleep Apnea - utility worker production: STOP Sleep Apnea - utility worker production Hx Hypertension Yes: CONTROLLED WITH MED 01/13/25 10:50 Hx Sleep Apnea No 01/13/25 10:50 CPAP BIPAP Do you snore loudly (louder No 01/13/25 10:50 than talking or can be heard Do you often feel tired/ No 01/13/25 10:50 fatigued/ sleepy during daytime? Has anyone observed you stop No 01/13/25 10:50 breathing during sleep? STOP Results Negative 01/13/25 10:50 QUESTION #5 FULL TEXT : Do you snore loudly (louder than talking or can be heard through closed doors)? Tobacco Use History Tobacco Use History - utility worker production: Tobacco Use History - utility worker production Tobacco Use Non-smoker 09/10/21 10:00 Smoking Status Never smoker 01/13/25 10:50 Hx Tobacco Use No 01/13/25 10:50 Years Smoking Packs Smoked per Day Smoking Cessation Date was within the last 15 years Hx Smoking Cessation Date Hx Smoking Cessation No: patient doesn't smoke 01/13/25 10:50 Counseling Hematologic Medial History Hematologic Hx - utility worker production: Hematologic Medical Hx - documentation lead Hx of Blood Transfusion No 01/13/25 10:50 Hx of Transfusion in last 3 No 01/13/25 10:50 Months Date of Last Transfusion (if within last 3 months) Ever experience any problems No 01/13/25 10:50 with transfusion(s)? Specify any problems Hx of Preganancy in last 3 N/A 01/13/25 10:50 Months Nurse Filling Out Transfusion NBUCHER 01/13/25 10:50 & Questions: Date: 01/13/25 01/13/25 10:50 Time: 10:54 01/13/25 10:50 Patient unable to answer at this time (ie. confused, unrespo /Reproduction History /Reproductive History - utility worker production: /Reproductive Hx- utility worker production Hx Now No 01/13/25 10:50 Gestational Age (in weeks): EDC: Hx Hx Para Hx Section SAB No 01/13/25 10:50 Does the father of the baby or his family experience fever w Father of the baby Malignant Hypertension history comment Active Medications Active Medications: Current Medications Generic Name Dose Route Start Last Admin Trade Name Freq PRN Reason Stop Dose Admin Lactated Ringer's 1,000 mls @ 15 mls/hr 01/16/25 06:30 IV .Q48H MARLENE PFSH Medical History Cirrhosis Ascites Liver disease Thyroid disease Post-menopausal Insulin dependent diabetes mellitus Ambulates with cane Low iron Anemia Skin tear Migraine headache DDD (degenerative disc disease), cervical Lightheadedness Dietary restriction Difficulty swallowing History of hiatal hernia History of GI bleed Non-smoker Shortness of breath on exertion Leg cramps History of pain when walking History of edema Cardiology follow-up encounter Heart murmur History of Holter monitoring Wears glasses Thyroid disease History of echocardiogram Walker as ambulation aid Pancytopenia Thalamic infarct, acute Diabetic retinopathy Stroke Shingles Neuropathy High cholesterol Arthritis GERD (gastroesophageal reflux disease) Rosacea Post-polio syndrome History of poliomyelitis HTN (hypertension) Home Medications ?Medication ?Instructions ?Recorded ?Last Taken ?Type atorvastatin 40 mg tablet 40 mg PO QHS #30 tabs 09/10/21 Unknown Rx losartan 100 mg tablet 100 mg PO DAILY 05/07/22 01/15/25 History miscellaneous medical supply #2 ea 07/17/22 Unknown Rx ketoconazole 2 % shampoo 1 applic topical 3XW PRN PER 08/05/23 Unknown History metformin 500 mg tablet 500 mg PO BID diabetes 08/05/23 01/15/25 History amlodipine 10 mg tablet 10 mg PO DAILY 12/31/23 01/15/25 History insulin glargine 100 unit/mL (3 16 unit subcut BID dm 04/19/24 01/14/25 History mL) subcutaneous pen (Lantus Solostar U-100 Insulin) aspirin 81 mg tablet,delayed 81 mg PO QODAY 10/21/24 01/10/25 History release (Adult Low Dose Aspirin) gabapentin 100 mg capsule 100 mg PO QODAY #45 caps 11/29/24 Unknown Rx carvedilol 6.25 mg tablet 6.25 mg PO BID #60 tabs 12/15/24 01/15/25 10:30 Rx furosemide 40 mg tablet (Lasix) 40 mg PO QAM #30 tabs 12/15/24 01/15/25 Rx spironolactone 25 mg tablet 25 mg PO QDAY #30 tabs 12/15/24 Unknown Rx omeprazole 40 mg capsule,delayed 40 mg PO DAILY 01/13/25 01/15/25 History release Allergy/AdvReac Type Severity Reaction Status Date / Time Sulfa (Sulfonamide Allergy Unknown Hives Verified 01/16/25 06:34 Antibiotics) adhesive tape AdvReac Intermediate Rash Verified 01/16/25 06:34 latex AdvReac skin Verified 01/16/25 06:34 reaction Family History Father Diabetes Hypertension High cholesterol Angina at rest Heart disease Kidney disease Mother Bowel disease Grandmother CVA (cerebral vascular accident) Aunt CVA (cerebral vascular accident) Surgical History History of esophagogastroduodenoscopy (EGD) Hx of colonoscopy Hx of right cataract extraction Hx of left cataract extraction Hx of lithotripsy Social History household members: spouse current occupational status: retired Smoking Status: Never smoker second hand exposure: No alcohol intake: never substance use type: does not use caffeine: Yes Type: coffee Number of servings: 1 what type of physical activity do you participate in: other frequency: 1-2 times per week elijah/adventism: Mandaeism seatbelt use: always Review of Systems (Anesthesia) ROS Narrative System reviewed and no additional complaints, except as documented.
[2025-01-16] MEDS: Lactated Ringers 1,000 ML 15 ML IV (06:47)
--- NOTE | 2025-01-16 07:00 | PCM.HP.STD ---
HPI - General General Date of Admission: 01/16/25 Date of Service: 01/16/25 Chief Complaint: Dysphagia HPI Narrative SANDIE ANGELES, is a 79 F who presents [ Chief Complaint: Cirrhosis and dysphagia BGI established 11/26/2023 referred from hematology due to occasional problems with swallowing and chronic iron deficiency anemia. Patient with dysphagia episodes up to 3 times per week dysphagia is to solids and liquids last colonoscopy 15 years ago no history of EGD EGD 01/04/2024 No endoscopic esophageal abnormality to explain patient's dysphagia. - Small hiatal hernia. - Chronic gastritis. Biopsied. - Erosive gastropathy with stigmata of recent bleeding. Treated with a heater probe. - Chronic duodenitis. Biopsied. OV 10/21/24 patient seen by primary care provider who ordered blood work which showed a hemoglobin is 8.3 which prompted patient to make follow-up appointment. Patient having extreme fatigue and shortness of breath with exertion. Sometimes she is too tired to chew her food. Patient continues with omeprazole. She was started on iron 2 weeks ago. She denies black/tarry stool. EGD 10/25/2024 - Normal esophagus. - A single non-bleeding angiodysplastic lesion in the stomach. Treated with a heater probe. - Three bleeding angiodysplastic lesions in the duodenum. Treated with a heater probe. - No specimens collected. Capsule endoscopy 11/03/2024: Negative capsule study Liver ultrasound and elastography 11/25/2024 fatty infiltration of the liver. Severe hepatic fibrosis/cirrhosis 27.1 [facility] ED 11-25 with abdominal distention and bloating. CT showing cirrhosis with moderate to large volume ascites and mild diffuse colonic wall thickening could be result of colitis or portal colopathy. Outpatient paracentesis ordered and discharged OV 12/15/24 patient having diffuse abdominal pain and back pain. She has nausea and lack of appetite. Overall feeling unwell. She has not yet had paracentesis but is scheduled for later today. Denies alcohol use in the past. ] [facility] Medical History (Updated 01/16/25 @ 07:[address] Winter Friend, ) Cirrhosis Ascites Liver disease Thyroid disease Post-menopausal Insulin dependent diabetes mellitus Ambulates with cane Low iron Anemia Skin tear Migraine headache DDD (degenerative disc disease), cervical Lightheadedness Dietary restriction Difficulty swallowing History of hiatal hernia History of GI bleed Non-smoker Shortness of breath on exertion Leg cramps History of pain when walking History of edema Cardiology follow-up encounter Heart murmur History of Holter monitoring Wears glasses Thyroid disease History of echocardiogram Walker as ambulation aid Pancytopenia Thalamic infarct, acute Diabetic retinopathy Stroke Shingles Neuropathy High cholesterol Arthritis GERD (gastroesophageal reflux disease) Rosacea Post-polio syndrome History of poliomyelitis HTN (hypertension) Home Medications ?Medication ?Instructions ?Recorded ?Last Taken ?Type atorvastatin 40 mg tablet 40 mg PO QHS #30 tabs 09/10/21 Unknown Rx losartan 100 mg tablet 100 mg PO DAILY 05/07/22 01/15/25 History miscellaneous medical supply #2 ea 07/17/22 Unknown Rx ketoconazole 2 % shampoo 1 applic topical 3XW PRN PER 08/05/23 Unknown History metformin 500 mg tablet 500 mg PO BID diabetes 08/05/23 01/15/25 History amlodipine 10 mg tablet 10 mg PO DAILY 12/31/23 01/15/25 History insulin glargine 100 unit/mL (3 16 unit subcut BID dm 04/19/24 01/14/25 History mL) subcutaneous pen (Lantus Solostar U-100 Insulin) aspirin 81 mg tablet,delayed 81 mg PO QODAY 10/21/24 01/10/25 History release (Adult Low Dose Aspirin) gabapentin 100 mg capsule 100 mg PO QODAY #45 caps 11/29/24 Unknown Rx carvedilol 6.25 mg tablet 6.25 mg PO BID #60 tabs 12/15/24 01/15/25 10:30 Rx furosemide 40 mg tablet (Lasix) 40 mg PO QAM #30 tabs 12/15/24 01/15/25 Rx spironolactone 25 mg tablet 25 mg PO QDAY #30 tabs 12/15/24 Unknown Rx omeprazole 40 mg capsule,delayed 40 mg PO DAILY 01/13/25 01/15/25 History release Allergy/AdvReac Type Severity Reaction Status Date / Time Sulfa (Sulfonamide Allergy Unknown Hives Verified 01/16/25 06:34 Antibiotics) adhesive tape AdvReac Intermediate Rash Verified 01/16/25 06:34 latex AdvReac skin Verified 01/16/25 06:34 reaction Family History Father Diabetes Hypertension High cholesterol Angina at rest Heart disease Kidney disease Mother Bowel disease Grandmother CVA (cerebral vascular accident) Aunt CVA (cerebral vascular accident) Surgical History History of esophagogastroduodenoscopy (EGD) Hx of colonoscopy Hx of right cataract extraction Hx of left cataract extraction Hx of lithotripsy Social History household members: spouse current occupational status: retired Smoking Status: Never smoker second hand exposure: No alcohol intake: never substance use type: does not use caffeine: Yes Type: coffee Number of servings: 1 what type of physical activity do you participate in: other frequency: 1-2 times per week elijah/alevism: Advent seatbelt use: always ROS Constitutional Constitutional: Denies fatigue, fever(s), poor appetite, weight gain or weight loss Gastrointestinal Gastrointestinal: Denies belching, bloating, change in bowel habits, change in stool character, chewing difficulty, coffee ground emesis, constipation, cramping, diarrhea, dyspepsia, dysphagia, early satiety, excessive flatus, fecal incontinence, heartburn, hematemesis, hematochezia, hemorrhoids, loose stools, melena, nausea, odynophagia, rectal bleeding, tenesmus, vomiting or weight changes Vital Signs Vital Signs Vital Signs: 01/16/25 06:37 01/16/25 06:37 01/16/25 06:37 Temperature 97.6 F L Temperature Source Temporal Pulse Rate 68 Respiratory Rate 16 Respiratory Pattern Normal Blood Pressure 164/38 H Blood Pressure Mean 80 Blood Pressure Source Monitor Blood Pressure Position Semi-Fowlers Blood Pressure Location Right Arm Baseline BP 164/38 Pulse Ox 100 Oxygen Delivery Method Room Air 01/16/25 06:45 Temperature 97.6 F L Temperature Source Pulse Rate 68 Respiratory Rate 16 Respiratory Pattern Blood Pressure 164/38 H Blood Pressure Mean Blood Pressure Source Blood Pressure Position Blood Pressure Location Baseline BP Pulse Ox 100 Oxygen Delivery Method Weight Weight: 132 lb Body Mass Index (BMI) 24.9 Physical Exam Const alert, oriented x3, no apparent distress and healthy appearing General Appearance: cooperative GI normal to inspection, nondistended, normoactive bowel sounds, soft to palpation, non-tender and non-distended Percussion: normal to percussion Rectal Exam: deferred Assessment & Plan Assessment/Plan (1) Dysphagia: (2) Cirrhosis: PLAN: Assessment and Plan Assessment and Plan (1) 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 Patient initially established with GI due to dysphagia and underwent EGD. Recent EGD revealing bleeding AVM in the stomach and duodenum which were cauterized. Following her EGD liver elastography was ordered which showed severe fibrosis/cirrhosis with a K PA in the 20s. She presented to the ED due to abdominal pain and distention. CT abdomen pelvis showed cirrhotic liver with moderate amount of ascites as well as diffuse colonic thickening suggestive of colitis and/or colopathy. She was scheduled for outpatient paracentesis which will happen later today. On interview with her today she admits to feeling dizzy, distended, abdominal pain and nausea. I have discussed case with Dr. Castrejon who recommended initiating Lasix 40 mg daily, spironolactone 25 mg/day and carvedilol 6.25 mg twice a day. He also recommended stopping her amlodipine. I conveyed the recommendations to patient and she was willing. Medications were sent to the pharmacy. Will also repeat blood work with CBC, CMP, AFP, PT/INR and acute hepatitis panel. Patient also scheduled for colonoscopy to determine colopathy versus colitis. She was advised to avoid hepatotoxic agents such as acetaminophen and alcohol. Patient is already scheduled to follow-up with Dr. Castrejon in early January. -Paracentesis today -Discussed treatment plan with Dr. Castrejon who is in agreement - Start Lasix, spironolactone and carvedilol, discontinue amlodipine - Avoid hepatotoxic agents - CBC, CMP, AFP, PT/INR and acute hepatitis panel ordered - Colonoscopy - Follow-up with Dr. Castrejon in January Note: Portions of this note may have been selectively carried forward from previous documentation to ensure continuity and accuracy of the clinical record. All imported information has been reviewed and updated as necessary to reflect the current patient status, findings, and clinical decision-making for this encounter. Definition 6 speech recognition operating room registered nurse software was used to create portions of this document. Sound alike and misspelled words, as well as other operating room registered nurse errors may be contained in the documentation. Orders: Orders CBC W/Diff, Automated Today K74.60 - Unspecified cirrhosis of liver Comprehensive Metabolic Profil Today K74.69 - Other cirrhosis of liver, K75.81 - Nonalcoholic steatohepatitis (KHALIL) Prothrombin Time w/INR Today K74.69 - Other cirrhosis of liver, K75.81 - Nonalcoholic steatohepatitis (KHALIL) Hepatitis Panel Acute Today K74.69 - Other cirrhosis of liver, K75.81 - Nonalcoholic steatohepatitis (KHALIL) AFP, Tumor Marker Today K74.60 - Unspecified cirrhosis of liver, K74.69 - Other cirrhosis of liver, K75.81 - Nonalcoholic steatohepatitis (KHALIL) Medications: New furosemide (Lasix) 40 mg PO QAM 30 tabs 2RF spironolactone 25 mg PO QDAY 30 tabs 3RF carvedilol must administer with a meal/food 6.25 mg PO BID 60 tabs 2RF
--- NOTE | 2025-01-16 07:30 | COLBX_PTH ---
PATIENT: RAOUL ANGELES LOC: EN U#:[id number] AGE/SX: 79/F ROOM: RE01/16/[address]: Dr. Moy Ramos DO : 1945 BED: DIS: 01/16/2025 SPEC #: [id number] RECD: 01/16/25 07:52 STATUS: EDIS RELewis #: [id number] VANESSA: 01/16/25 07:[address]: Moy Ramos DEPT: SURGICAL PATHOLOGY RECD BY: Yosef Marshall ENTERED: 01/16/25 11:28 SP TYPE: COLON BX OTHR DR: Dr. Desiree Tapia MD Tissues: A - Ileum, NOS B - COLON BIOPSY Procedures: Surgery Specimen Level IV HEADER OPERATION: Colonoscopy with biopsies PRE-OP DIAGNOSIS: Dysphagia, cirrhosis TISSUE SUBMITTED: A- Terminal ileum biopsy, B- Random colon biopsy MICROSCOPIC DIAGNOSIS A. Small intestine, terminal ileum, biopsy: - Normal villous architecture with focal prominent mucosal lymphoid aggregates, favor reactive - see note. Note: Focal prominent mucosal lymphoid aggregates are favored to represent a reactive process. However, if clinical suspicion for a lymphoproliferative disorder is high, please contact the Lab to request additional evaluation. B. Colon, random, biopsy: - No specific pathologic change. - The histologic features of microscopic colitis are not demonstrated. MICROSCOPIC DESCRIPTION Slides are reviewed. GROSS DESCRIPTION A. Received in fixative is one container labeled with the patient's name and designated Terminal ileum biopsy. The specimen consists of multiple irregular fragments of carlson tissue that in aggregate measure 0.9 x 0.5 x 0.1 cm. The specimen is totally submitted in one cassette. B. Received in fixative is one container labeled with the patient's name and designated Random colon biopsy. The specimen consists of multiple irregular fragments of carlson tissue that in aggregate measure 2.1 x 0.9 x 0.1 cm. The specimen is totally submitted in one cassette. UT 01/16/2025 CPT:13401c7
--- NOTE | 2025-01-16 07:46 | OP.PROVAT_ITS ---
01/16/2025 Desiree Tapia [place] [id number] [address] Re : Colonoscopy procedure for Sandiejuani Zuritaruff Dear Dr. Tapia This procedure was performed on Thursday, January 16, 2025. My impressions and recommendations are as follows: Impressions : - Diverticulosis in the recto-sigmoid colon, in the sigmoid colon and in the descending colon. - Stool in the recto-sigmoid colon, in the sigmoid colon, in the descending colon and at the splenic flexure. Fluid aspiration performed. - Pseudomembranous enterocolitis. - The examined portion of the ileum was normal. Biopsied. Recommendations : - Discharge patient to home. - Resume previous diet. - Continue present medications. - Await pathology results. - Vancomycin 125 mg p.o. every 6 hours x 2 weeks - No repeat colonoscopy due to age. My findings are described in the full procedure note, which is enclosed. If I can be of further assistance, please feel free to contact me at . Sincerely, Moy Ramos, 01/16/2025 7:45:58 AM This report has been signed electronically.
--- NOTE | 2025-01-16 07:46 | OP.COLON_ITS ---
Patient Name: Sandie Waggoner Procedure Date: 01/16/2025 7:10 AM Date of : 1945 Age: 79 Procedure: Colonoscopy Indications: Clinically significant diarrhea of unexplained origin Providers: Moy Ramos DO Referring MD: Desiree Tapia Medicines: Monitored Anesthesia Care Patient Profile: This is an 79 year old female. Refer to note in patient chart for documentation of history and physical. Last Colonoscopy: several years ago. Complications: No immediate complications. Procedure: Pre-Anesthesia Assessment: - Prior to the procedure, a History and Physical was performed, and patient medications and allergies were reviewed. The patient is competent. The risks and benefits of the procedure and the sedation options and risks were discussed with the patient. All questions were answered and informed consent was obtained. Patient identification and proposed procedure were verified by the physician in the pre-procedure area. Mental Status Examination: alert and oriented. Airway Examination: normal oropharyngeal airway and neck mobility. Respiratory Examination: clear to auscultation. CV Examination: normal. Prophylactic Antibiotics: The patient does not require prophylactic antibiotics. Prior Anticoagulants: The patient has taken no anticoagulant or antiplatelet agents. ASA Grade Assessment: II - A patient with mild systemic disease. After reviewing the risks and benefits, the patient was deemed in satisfactory condition to undergo the procedure. The anesthesia plan was to use monitored anesthesia care (MAC). Immediately prior to administration of medications, the patient was re-assessed for adequacy to receive sedatives. The heart rate, respiratory rate, oxygen saturations, blood pressure, adequacy of pulmonary ventilation, and response to care were monitored throughout the procedure. The physical status of the patient was re-assessed after the procedure. After I obtained informed consent, the scope was passed under direct vision. Throughout the procedure, the patient's blood pressure, pulse, and oxygen saturations were monitored continuously. The Colonoscope was introduced through the anus and advanced to the terminal ileum. The colonoscopy was performed without difficulty. The patient tolerated the procedure well. The quality of the bowel preparation was adequate. The terminal ileum, ileocecal valve, appendiceal orifice, and rectum were photographed. Scope In: 7:21:44 AM Scope Withdrawal Time 0 hours 11 minutes 27 seconds Scope Out: 7:38:14 AM Total Procedure Duration Time 0 hours 16 minutes 30 seconds Findings: The perianal and digital rectal examinations were normal. Multiple small and large-mouthed diverticula were found in the recto-sigmoid colon, sigmoid colon and descending colon. Stool was found in the recto-sigmoid colon, in the sigmoid colon, in the descending colon and at the splenic flexure. Fluid aspiration for bacterial cultures and Clostridium difficile was performed. Verification of patient identification for the specimen was done. Estimated blood loss was minimal. A pseudomembrane was found in the recto-sigmoid colon, in the sigmoid colon, in the descending colon and at the splenic flexure. Biopsies were taken with a cold forceps for histology. Verification of patient identification for the specimen was done. Estimated blood loss was minimal. The terminal ileum appeared normal. Biopsies were taken with a cold forceps for histology. Verification of patient identification for the specimen was done. Estimated blood loss was minimal. Large rectal varices were found. Impression: - Diverticulosis in the recto-sigmoid colon, in the sigmoid colon and in the descending colon. - Stool in the recto-sigmoid colon, in the sigmoid colon, in the descending colon and at the splenic flexure. Fluid aspiration performed. - Pseudomembranous enterocolitis. - The examined portion of the ileum was normal. Biopsied. Recommendation: - Discharge patient to home. - Resume previous diet. - Continue present medications. - Await pathology results. - Vancomycin 125 mg p.o. every 6 hours x 2 weeks - No repeat colonoscopy due to age. Procedure Code(s): --- Professional --- 95556, Colonoscopy, flexible; with biopsy, single or multiple CPT copyright 2021 [employer]. All rights reserved. The codes documented in this report are preliminary and upon bulk intake worker review may be revised to meet current compliance requirements. Moy Ramos DO 01/16/2025 7:45:58 AM This report has been signed electronically. Number of Addenda: 0 Note Initiated On: 01/16/2025 7:10 AM
--- NOTE | 2025-01-16 07:49 | PCM.POST.ANE ---
Anesthesia: Postop Eval I Current Vital Signs Temperature: 98.1 F Pulse Rate: 57 Blood Pressure: 103/90 Respiratory Rate: 16 Pulse Ox: 99 Oxygen Delivery Method: Room Air Assessment Airway patent: Yes Spontaneous unlabored respirations: Yes Mental status: Asleep nausea: No Vomiting: No Anesthesia Complication: No Fluid Hydration Crystalloid volume administer (ml): 700 Total IV fluid infused: 700 Progress Note Anesthesia document: Postop Eval 1 completed: Yes
--- NOTE | 2025-01-16 08:21 | PCM.POSTANE2 ---
Anesthesia Postop Eval I Sum Postop Eval Completion status Anesthesia document: Postop Eval 1 completed: Yes Anesthesia Postop Eval I Summary Anesthesia Postop Eval I Summary: Anesthesia Postop Eval I: Assessment Summary Airway patent Yes 01/16/25 07:50 [email or web address] Spontaneous unlabored Yes 01/16/25 07:50 [email or web address] respirations Mental status Asleep 01/16/25 07:50 [email or web address] nausea No 01/16/25 07:50 [email or web address] Vomiting No 01/16/25 07:50 [email or web address] Anesthesia Postop Eval I: Fluid Summary Crystalloid volume administer 700 01/16/25 07:50 [email or web address] (ml) Colloids volume administered ( ml) Blood Product volume administered (ml) Total IV fluid infused 700 01/16/25 07:50 [email or web address] Anesthesia Postop Eval I: Summary Notes Anesthesia Complication No 01/16/25 07:50 [email or web address] Anesthesia Complication Comment: Post-operative progress note Anesthesia: Postop Eval II Evaluation Mental status: Awake Pain Level: 0 nausea: No Vomiting: No
== END 2025-01-16 08:56 | disposition home or self-care (01) ==
LOC: EN 06:15 → AC 06:17
PROVIDERS: PCP Family Medicine; Referring Provider Family Medicine; Visit Provider Internal Medicine Gastroenterology
PROC: 0DJD8ZZ Inspection of Lower Intestinal Tract, Via Natural or Artificial Opening Endoscopic (ICD-10-PCS; CPT 45378; principal; 2025-01-16 07:25)
DX: R13.10 Dysphagia, unspecified (principal); K74.60 Unspecified cirrhosis of liver; Z79.4 Long term (current) use of insulin; E11.40 Type 2 diabetes mellitus with diabetic neuropathy, unspecified; A04.72 Enterocolitis due to Clostridium difficile, not specified as recurrent; I10 Essential (primary) hypertension; K57.30 Diverticulosis of large intestine without perforation or abscess without bleeding; E78.00 Pure hypercholesterolemia, unspecified; K75.81 Nonalcoholic steatohepatitis (NASH); Z79.899 Other long term (current) drug therapy; Z79.84 Long term (current) use of oral hypoglycemic drugs; Z79.82 Long term (current) use of aspirin; K21.9 Gastro-esophageal reflux disease without esophagitis; Z98.41 Cataract extraction status, right eye; Z98.42 Cataract extraction status, left eye
CPT/HCPCS: 45380; 82962; 87493; 87506; 88305; J2405

== ENCOUNTER → 2025-01-20 | Outpatient (CLI) | payer MEDICARE, SELFPAY ==
[2025-01-20 17:48] LABS: AST(SGOT) 30 U/L (<=31); Alanine Aminotransfer ALT/SGPT 16 U/L (<=34); Albumin, Serum 3.8 g/dL (3.4-4.8); Alkaline Phosphatase 84 U/L (35-104); Anion Gap 15 (5-15); BUN 40 mg/dL (4-19); BUN/Creat Ratio 18.7 RATIO (10-20); Calcium,Total 9.0 mg/dL (7.6-11.0); Carbon Dioxide 22.0 mmol/L (21.0-32.0); Chloride 103 mmol/L (98-108); Globulin 4.1 g/dL (2.2-4.2); Glucose 138 mg/dL (70-99); Potassium 4.8 mmol/L (3.3-5.1)
== END | disposition home or self-care (01) ==
LOC: LAB 15:50
PROVIDERS: PCP Family Medicine; Referring Provider Internal Medicine; Visit Provider Internal Medicine
DX: K74.60 Unspecified cirrhosis of liver (principal)
CPT/HCPCS: 36415; 80053

== ENCOUNTER → 2025-01-24 | Outpatient (CLI) | payer MEDICARE, SELFPAY ==
[2025-01-24 11:41] LABS: Hematocrit 27.7 % (37-47); Hemoglobin 8.5 g/dL (12.0-15.0); Immature Granulocytes Count 0.020 X10^3/uL (0.0-0.0); Mean Corp Hgb Conc 30.7 g/dL (32-36); Mean Corpuscular Volume 85.8 fL (81-99); Mean Platelet Vol. 11.1 fl (6.2-12.0); NRBC Flagged by Analyzer 0 % (0-5); POSITIVE DIFFERENTIAL YES; Platelet Count 137 K/mm3 (150-450); RBC Distribution Width CV 18.5 % (11.6-14.6); RBC Distribution Width SD 57.6 fl (35.1-43.9); Red Blood Count 3.23 M/mm3 (4.2-5.4); White Blood Count 3.7 K/mm3 (4.4-11.0)
[2025-01-24 12:02] LABS: Prothrombin Time (Protime)PT. 17.2 SECONDS (11.7-14.9)
[2025-01-24 12:09] LABS: Ammonia 23.3 umol/L (11-51)
[2025-01-24 12:14] LABS: AST(SGOT) 32 U/L (<=31); Alanine Aminotransfer ALT/SGPT 17 U/L (<=34); Albumin, Serum 3.7 g/dL (3.4-4.8); Alkaline Phosphatase 83 U/L (35-104); Anion Gap 11 (5-15); BUN 37 mg/dL (4-19); BUN/Creat Ratio 21.3 RATIO (10-20); Calcium,Total 8.6 mg/dL (7.6-11.0); Carbon Dioxide 23.3 mmol/L (21.0-32.0); Chloride 105 mmol/L (98-108); Cholesterol 130 mg/dL (<=200); Ferritin 16 ng/mL (22-378); Globulin 4.0 g/dL (2.2-4.2); Glucose 271 mg/dL (70-99); Low Density Lipoprotein Calc. 63 mg/dL; Potassium 4.1 mmol/L (3.3-5.1); Triglycerides 201 mg/dL; Very Low Density Lipoprotein 40 mg/dL (5-40); cholesterol:hdl ratio screen 3.92
[2025-01-24 12:39] LABS: CRP 9.25 mg/L (0.0-3.0); Iron 57 ug/dL (50-170); Iron Binding Capacity,Total 340 ug/dL (250-450); Iron Binding Capacity,Unsat 283 ug/dL (228-428); Magnesium 2.6 mg/dL (1.5-2.2)
[2025-01-25 11:09] LABS: Anti-Smooth Muscle ABS 10 Units (0-19)
== END | disposition home or self-care (01) ==
PROVIDERS: PCP Family Medicine; Referring Provider Internal Medicine; Visit Provider Internal Medicine
DX: R19.7 Diarrhea, unspecified (principal); K74.60 Unspecified cirrhosis of liver; E11.319 Type 2 diabetes mellitus with unspecified diabetic retinopathy without macular edema; N18.31 Chronic kidney disease, stage 3a; M85.80 Other specified disorders of bone density and structure, unspecified site; D64.9 Anemia, unspecified; D50.0 Iron deficiency anemia secondary to blood loss (chronic)
CPT/HCPCS: 36415; 80053; 80061; 82105; 82140; 82728; 83036; 83516; 83540; 83550; 83735; 84100; 84443; 85025; 85610; 86140; 86706

== ENCOUNTER 2025-02-03 17:44 | Emergency (ER) | payer MEDICARE, SELFPAY ==
[2025-02-03] VITALS (14 sets, daily range): BP systolic 136–191; BP diastolic 51–69; PULSE 57–67; RESP 12–26; TEMP 36.4; O2SAT 96–100; BMI 26.6
--- NOTE | 2025-02-03 17:48 | EKG12_ITS ---
Test Reason : CP Blood Pressure : */* mmHG Vent. Rate : 62 BPM Atrial Rate : 62 BPM P-R Int : 202 ms QRS Dur : 134 ms QT Int : 478 ms P-R-T Axes : 15 -50 96 degrees QTcB Int : 485 ms Normal sinus rhythm Left axis deviation Left bundle branch block Abnormal ECG Confirmed by Chaparro Francisco ([id number]), fan mail editor PATY KAY ([id number]) on 02/10/2025 7:12:08 AM Referred By: CELESTE Confirmed By: Chaparro Francisco
[2025-02-03] MEDS: Lidocaine 2% Viscous15 ML UDC 15 ML PO (18:18)
[2025-02-03] MEDS: Mag /Aluminum/Simeth WCH UDC 30 ML ORAL.SUSP PO (18:18)
[2025-02-03] MEDS: Famotidine 200 MG/20 ML MDV 20 MG in 0.9% Normal Saline (Pres. free 8 ML 300 MG IV (18:22)
--- OUTSIDE RECORDS SUMMARY | 2025-02-03 18:29 | XMS RPT_ITS | CCD ---
Author Organization [facility] Care Team Providers Care Television Operator Name Role Phone DESIREE TAPIA Unavailable Unavailable DESIREE TAPIA Unavailable Unavailable DESIREE TAPIA Unavailable Unavailable YOLANDE PATINO Unavailable Unavailable PROVIDER, UNKNOWN Unavailable Unavailable PROVIDER, UNKNOWN Unavailable Unavailable PROVIDER, UNKNOWN Unavailable Unavailable Dr. Desiree Tapia Primary Care Provider [phone] Kodak [place] Emergency Provider Dr. Arya Bartlett Admit Provider Dr. Arya Bartlett Attending Provider Dr. Arya Bartlett Other Provider Dr. Abdi Lee Attending Provider [phone] DESIREE TAPIA Attending Unavailable DESIREE TAPIA Primary Care Unavailable DESIREE TAPIA Referring Unavailable Dr. Desiree Tapia Primary Care Provider [phone] Dr. Desiree Tapia Referring Provider [phone] Surendra Hidalgo Attending Provider [phone] Dr. Arya Argueta Attending Provider [phone] Desiree Tapia Primary Care Provider [phone] Desiree Tapia Referring Provider [phone] Dr. Surendra Hidalgo Attending Provider [phone] Dr. Arya Argueta Attending Provider [phone] Surendra Hidalgo Referring Provider [phone] [...] tape] Propensity to adverse reactions 2 Rash [facility] (20 sources) Sulfonamides (Antibiotic); Translations: [Sulfa (Sulfonamide Antibiotics)] Allergy to substance 2 Hives [facility] (11 sources) Latex Propensity to adverse reactions 5 skin reaction [facility] (1 source) Latex Drug allergy (disorder) 5 [facility] Repository Medications Current Medications Medication [...] 2018 11:00pm September 10, 2021 12:27pm heart [facility] atorvastatin 40 mg oral tablet (18 sources) [...] Medical Supply misc (11 sources) [facility]: [facility] [place] 0 .Route 2 July 16, 2022 11:00pm 15-20mmHg knee-high measured compression stockings to be worn as directed; open or closed toe per patient preference Start: 07-17-2022 [facility] 2 July 17, 2022 12:00am 15-20mmHg knee-high measured compression stockings to be worn as directed; open or closed toe per patient preference Start: [facility]17[facility]2022 [facility] 0 .Route 2 July 17, 2022 12:00am 15-20mmHg knee-high measured compression stockings to be worn as directed; open or closed toe per patient preference Start: 07-17-2022 [facility] Active 0 .Route 2 July 16, 2022 [...] circulatory and respiratory systems] 02-20-2022 Episodic Other DIRECTOR OF FINANCIAL REPORTING infection and poliomyelitis (20 sources) Post poliomyelitis [...] Panel Acuteon 11-0 COMMENT Comment Normal . [facility] Comment on above: Result Comment: Not infected with HCV unless early or acute infection is suspected (which may be delayed in an immunocompromised individual), or other evidence exists to indicate HCV infection. Performed at: [facility] Lab[address] [id number] Senior Animal Trainer: Grant Baires PhD, Phone: [phone] Performed By: #### L 100.0100, L501.9520, L502.0250, L503.0106, L500.4050, L503.6030, L503.6550 #### [facility] [address] [place], [address] HEP B CORE,IgM Negative Normal Negative [facility] Comment on above: Performed By: #### L 100.0100, L501.9520, L502.0250, L503.0106, L500.4050, L503.6030, L503.6550 #### [facility] [address] [place], [address] HEP B SURF AG Negative Normal Negative [facility] Comment on above: Performed By: #### L 100.0100, L501.9520, L502.0250, L503.0106, L500.4050, L503.6030, L503.6550 #### [facility] [address] [place], [address] HEP C VIRUS AB Non-Reactive Normal Non Reactive [facility] Comment on above: Performed By: #### L 100.0100, L501.9520, L502.0250, L503.0106, L500.4050, L503.6030, L503.6550 #### [facility] [address] [place], [address] HEPATITIS A-IgM Negative Normal Negative [facility] Comment on above: Result Comment: A ne gative anti-HAV IgM result suggests no recent or current HAV infection. Performed By: #### L 100.0100, L501.9520, L502.0250, L503.0106, L500.4050, L503.6030, L503.6550 #### [facility] [address] [place], [place], [address] Absolute lymphocyte countOrd ered By: Lesly Hardwick on 12-15-2024 Lymphocytes Auto (Unsp spec) [#/Vol] 0.69 10*3/uL Low 0.83-4.51 [facility] Absolute neutrophil countOrd ered By: Lesly Hardwick on 12-15-2024 Neutrophils (Bld) [#/Vol] 4.1 10*3/uL 2.0-7.7 [facility] Anion gap in Serum or Plasma Ordered By: Lesly Hardwick on 12-15-2024 Anion gap [Moles/Vol] 14 mmol/L 5-15 [facility] Automated lymphocyte count a s percentage of total leukocytesOrdered By: Lesly Hardwick on 12-15-2024 Lymphocytes/100 WBC Auto (Unsp spec) 13.0 % Low 19-41 [facility] BUN/creatinine ratioOrdered By: Leslyjesus Hardwick on 12-15-2024 Urea nitrogen/Creatinine [Mass ratio] 13.3 mg/mg 10-20 [facility] Basophil percentageOrdered B y: Lesly Hardwick on 12-15-2024 Basophils/100 WBC (Bld) 0.9 % 0-1 [facility] Bilirubin, totalOrdered By: Lesly Hardwick on 12-15-2024 Bilirubin [Mass/Vol] 0.97 mg/dL 0.00-1.30 [facility] CBC W/Diff, Automatedon Absolute Lymph 0.69 X10 3/uL Low 0.83-4.51 [facility] Comment on above: Performed By: #### L 100.0100, L501.9520, L502.0250, L503.0106, L500.4050, L503.6030, L503.6550 #### [facility] [address] [place], [address] Absolute Neut 4.1 X10 3/uL Normal 2.0-7.7 [facility] Comment on above: Performed By: #### L 100.0100, L501.9520, L502.0250, L503.0106, L500.4050, L503.6030, L503.6550 #### [facility] [address] [place], [address] Basophils/100 WBC (Bld) 0.9 % Normal 0-1 [facility] Comment on above: Performed By: #### L 100.0100, L501.9520, L502.0250, L503.0106, L500.4050, L503.6030, L503.6550 #### [facility] [address] [place], [address] Eosinophils/100 WBC (Bld) 2.3 % Normal 0-5 [facility] Comment on above: Performed By: #### L 100.0100, L501.9520, L502.0250, L503.0106, L500.4050, L503.6030, L503.6550 #### [facility] [address] [place], [address] Erythrocyte distribution width (RBC) [Ratio] 17.3 % High 11.6-14.6 [facility] Comment on above: Performed By: #### L 100.0100, L501.9520, L502.0250, L503.0106, L500.4050, L503.6030, L503.6550 #### [facility] [address] [place], [address] Hematocrit (Bld) [Volume fraction] 31.3 % Low 37-47 [facility] Comment on above: Performed By: #### L 100.0100, L501.9520, L502.0250, L503.0106, L500.4050, L503.6030, L503.6550 #### [facility] [address] [place], [address] Hemoglobin (Bld) [Mass/Vol] 9.8 g/dL Low 12.0-15.0 [facility] Comment on above: Performed By: #### L 100.0100, L501.9520, L502.0250, L503.0106, L500.4050, L503.6030, L503.6550 #### [facility] [address] [place], [address] IG% 0.200 Normal 0.0-0.9 [facility] Comment on above: Result Comment: IG% - Immature Granulocytes (promyelocytes, myelocytes and metamyelocytes) > 1% indicates that a LEFT SHIFT is Present. Performed By: #### L 100.0100, L501.9520, L502.0250, L503.0106, L500.4050, L503.6030, L503.6550 #### [facility] [address] [place], [address] Lymphocytes/100 WBC (Bld) 13.0 % Low 19-41 [facility] Comment on above: Performed By: #### L 100.0100, L501.9520, L502.0250, L503.0106, L500.4050, L503.6030, L503.6550 #### [facility] [address] [place], [address] MCH (RBC) [Entitic mass] 25.3 pg Low 27.0-32.0 [facility] Comment on above: Performed By: #### L 100.0100, L501.9520, L502.0250, L503.0106, L500.4050, L503.6030, L503.6550 #### [facility] [address] [place], [address] MCHC (RBC) [Mass/Vol] 31.3 g/dL Low 32-36 [facility] Comment on above: Performed By: #### L 100.0100, L501.9520, L502.0250, L503.0106, L500.4050, L503.6030, L503.6550 #### [facility] [address] [place], [address] MCV (RBC) [Entitic vol] 80.9 fL Low 81-99 [facility] Comment on above: Performed By: #### L 100.0100, L501.9520, L502.0250, L503.0106, L500.4050, L503.6030, L503.6550 #### [facility] [address] [place], [address] Monocytes/100 WBC (Bld) 6.0 % Normal 0-10 [facility] Comment on above: Performed By: #### L 100.0100, L501.9520, L502.0250, L503.0106, L500.4050, L503.6030, L503.6550 #### [facility] [address] [place], [address] Neutrophils/100 WBC (Bld) 77.6 % High 47-70 [facility] Comment on above: Performed By: #### L 100.0100, L501.9520, L502.0250, L503.0106, L500.4050, L503.6030, L503.6550 #### [facility] [address] [place], [address] Nucleated RBC (Bld) [#/Vol] 0 10*3/uL Normal 0-5 [facility] Comment on above: Performed By: #### L 100.0100, L501.9520, L502.0250, L503.0106, L500.4050, L503.6030, L503.6550 #### [facility] [address] [place], [address] Platelet mean volume (Bld) [Entitic vol] 11.5 fL Normal 6.2-12.0 [facility] Comment on above: Performed By: #### L 100.0100, L501.9520, L502.0250, L503.0106, L500.4050, L503.6030, L503.6550 #### [facility] [address] [place], [address] Platelets (Bld) [#/Vol] 231 10*3/uL Normal 150-450 [facility] Comment on above: Performed By: #### L 100.0100, L501.9520, L502.0250, L503.0106, L500.4050, L503.6030, L503.6550 #### [facility] [address] [place], [address] RBC (Bld) [#/Vol] 3.87 10*6/uL Low 4.2-5.4 [facility] Comment on above: Performed By: #### L 100.0100, L501.9520, L502.0250, L503.0106, L500.4050, L503.6030, L503.6550 #### [facility] [address] [place], [address] RDW SD 50.8 fl High 35.1-43.9 [facility] Comment on above: Performed By: #### L 100.0100, L501.9520, L502.0250, L503.0106, L500.4050, L503.6030, L503.6550 #### [facility] [address] [place], [address] WBC (Bld) [#/Vol] 5.3 10*3/uL Normal 4.4-11.0 [facility] Comment on above: Performed By: #### L 100.0100, L501.9520, L502.0250, L503.0106, L500.4050, L503.6030, L503.6550 #### [facility] [address] [place], [address] Carbon dioxide, total [Moles /volume] in Central venous bloodOrdered By: Lesly Hardwick on 12-15-2024 CO2 [Moles/Vol] 21.2 mmol/L 21.0-32.0 [facility] Chloride assayOrdered By: Alejandra Hardwick on 12-15-2024 Chloride [Moles/Vol] 108 mmol/L 98-108 [facility] Comprehensive Metabolic Prof ilon 12-15-2024 Albumin [Mass/Vol] 3.4 g/dL Normal 3.4-4.8 [facility] Comment on above: Performed By: #### L 100.0100, L501.9520, L502.0250, L503.0106, L500.4050, L503.6030, L503.6550 #### [facility] [address] [place], [address] Albumin/Globulin [Mass ratio] 0.8 {ratio} Low 0.9-2.4 [facility] Comment on above: Performed By: #### L 100.0100, L501.9520, L502.0250, L503.0106, L500.4050, L503.6030, L503.6550 #### [facility] [address] [place], [address] ALK PHOS 101 U/L Normal 35-104 [facility] Comment on above: Performed By: #### L 100.0100, L501.9520, L502.0250, L503.0106, L500.4050, L503.6030, L503.6550 #### [facility] [address] [place], [address] ALT [Catalytic activity/Vol] 13 U/L Normal <=34 [facility] Comment on above: Performed By: #### L 100.0100, L501.9520, L502.0250, L503.0106, L500.4050, L503.6030, L503.6550 #### [facility] [address] [place], [address] AST [Catalytic activity/Vol] 32 U/L Normal <=31 [facility] Comment on above: Performed By: #### L 100.0100, L501.9520, L502.0250, L503.0106, L500.4050, L503.6030, L503.6550 #### [facility] [address] [place], [address] Bilirubin [Mass/Vol] 0.97 mg/dL Normal 0.00-1.30 [facility] Comment on above: Performed By: #### L 100.0100, L501.9520, L502.0250, L503.0106, L500.4050, L503.6030, L503.6550 #### [facility] [address] [place], [address] BUN/CRE 13.3 RATIO Normal 10-20 [facility] Comment on above: Performed By: #### L 100.0100, L501.9520, L502.0250, L503.0106, L500.4050, L503.6030, L503.6550 #### [facility] [address] [place], [address] Calcium [Mass/Vol] 8.9 mg/dL Normal 7.6-11.0 [facility] Comment on above: Performed By: #### L 100.0100, L501.9520, L502.0250, L503.0106, L500.4050, L503.6030, L503.6550 #### [facility] [address] [place], [address] Chloride [Moles/Vol] 108 mmol/L Normal 98-108 [facility] Comment on above: Performed By: #### L 100.0100, L501.9520, L502.0250, L503.0106, L500.4050, L503.6030, L503.6550 #### [facility] [address] [place], [address] CO2 [Moles/Vol] 21.2 mmol/L Normal 21.0-32.0 [facility] Comment on above: Performed By: #### L 100.0100, L501.9520, L502.0250, L503.0106, L500.4050, L503.6030, L503.6550 #### [facility] [address] [place], [address] Creatinine [Mass/Vol] 1.84 mg/dL High 0.70-1.20 [facility] Comment on above: Performed By: #### L 100.0100, L501.9520, L502.0250, L503.0106, L500.4050, L503.6030, L503.6550 #### [facility] [address] [place], [address] GAP 14 Normal 5-15 [facility] Comment on above: Performed By: #### L 100.0100, L501.9520, L502.0250, L503.0106, L500.4050, L503.6030, L503.6550 #### [facility] [address] [place], [address] GFR/1.73 sq M.predicted among non-blacks MDRD (S/P/Bld) [Vol rate/Area] 27 mL/min/{1.73_m2} Low >60 [facility] Comment on above: Result Comment: mL/m in/1.73m2 CKD-EPI Creatinine Equation (2020) Performed By: #### L 100.0100, L501.9520, L502.0250, L503.0106, L500.4050, L503.6030, L503.6550 #### [facility] [address] [place], [address] Globulin (S) [Mass/Vol] 4.2 g/dL Normal 2.2-4.2 [facility] Comment on above: Performed By: #### L 100.0100, L501.9520, L502.0250, L503.0106, L500.4050, L503.6030, L503.6550 #### [facility] [address] [place], [address] Glucose [Mass/Vol] 151 mg/dL High 70-99 [facility] Comment on above: Performed By: #### L 100.0100, L501.9520, L502.0250, L503.0106, L500.4050, L503.6030, L503.6550 #### [facility] [address] [place], [address] Potassium [Moles/Vol] 4.8 mmol/L Normal 3.3-5.1 [facility] Comment on above: Performed By: #### L 100.0100, L501.9520, L502.0250, L503.0106, L500.4050, L503.6030, L503.6550 #### [facility] [address] [place], [address] Sodium [Moles/Vol] 143 mmol/L Normal 133-145 [facility] Comment on above: Performed By: #### L 100.0100, L501.9520, L502.0250, L503.0106, L500.4050, L503.6030, L503.6550 #### [facility] [address] [place], [address] T PROT 7.7 g/dL Normal 5.9-8.4 [facility] Comment on above: Performed By: #### L 100.0100, L501.9520, L502.0250, L503.0106, L500.4050, L503.6030, L503.6550 #### [facility] [address] [place], [address] Urea nitrogen [Mass/Vol] 25 mg/dL High 4-19 [facility] Comment on above: Performed By: #### L 100.0100, L501.9520, L502.0250, L503.0106, L500.4050, L503.6030, L503.6550 #### [facility] [address] [place], [address] Cytology, Body Fluid / CSFon 12-15-2024 CYTOLOGY,BF/CSF SEE PATHOLOGY REPORT Normal [facility] Comment on above: Order Comment: Reaso n for Exam: ascites fluid PARACENTESIS Result Comment: Spec imen submitted to Anatomical Pathology Department for testing. Performed By: #### L 350.1000 #### [facility] [address] [place], [address] Eosinophil percentageOrdered By: Lesly Hardwick on 12-15-2024 Eosinophils/100 WBC (Bld) 2.3 % 0-5 [facility] Erythrocyte distribution wid th ratioOrdered By: Lesly Hardwick on 12-15-2024 Erythrocyte distribution width (RBC) [Ratio] 17.3 % High 11.6-14.6 [facility] Erythrocyte distribution wid th standard deviationOrdered By: Lesly Hardwick on 12-15-2024 Erythrocyte distribution width (RBC) [Ratio] 50.8 fl High 35.1-43.9 [facility] Gastroenterology Visit Repor ton 12-15-2024 Gastroenterology Visit Report [facility] [address] [place] [address] OFFICE VISIT Date of Service: 12/15/24 MR#: [id number] Acct: [id number] Name: SANDIE ANGELES DAWSON Rep #: [id number] : 1945 Provider: SUZETTE Carlson Age/Sex: 79/F Location: [facility] Status: Signed Intake Vital Signs 11/28/24 12:59 12/11/24 15:05 12/15/24 08:38 Height 5 ft 1 in 5 ft 1 in 5 ft 1 in Weight: 149 lb BMI 28.1 BP 155/75 H Respiration 18 Pulse 90 Temp 97.9 F Temp Source Temporal Pulse Oximetry (%) 93 Oxygen Delivery Method room air Intake Visit Reasons: TEST ANEMIA DYSPHAGIA Chief Complaint: Cirrhosis Mechanical Design Drafter Required: No Accompanied by: Is patient in [...] in: other frequency: 1-2 times per week luna/worship: Sikh seatbelt use: always HPI HPI Chief Complaint: [...] hemoglobin is (more content not included)... Normal [facility] Glomerular filtration rate ( GFR) estimation/1.73 sq m using serum, plasma, or whole bOrdered By: Lesly Hardwick on 12-15-2024 GFR/1.73 sq M.predicted among non-blacks MDRD (S/P/Bld) [Vol rate/Area] 27 mL/min/{1.73_m2} Low >60 [facility] Comment on above: mL/min/1.73m2 CKD-EP I Creatinine Equation (2020) Hematocrit Auto (Bld) [Volum e fraction]Ordered By: Lesly Hardwick on 12-15-2024 Hematocrit (Bld) [Volume fraction] 31.3 % Low 37-47 [facility] Hemoglobin measurementOrdere d By: Lesly Hardwick on 12-15-2024 Hemoglobin (Bld) [Mass/Vol] 9.8 g/dL Low 12.0-15.0 [facility] Immature granulocytes/100 WB C Auto (Bld)Ordered By: Lesly Hardwick on 12-15-2024 Immature granulocytes/100 WBC (Bld) 0.200 % 0.0-0.9 [facility] Comment on above: IG% - Immature Granu locytes (promyelocytes, myelocytes and metamyelocytes) > 1% indicates that a LEFT SHIFT is Present. International normalized rat io (INR) calculationOrdered By: Lesly Hardwick on 12-15-2024 INR Coag (Bld) [Relative time] 1.3 {INR} [facility] - Chemistry and C hemistry - challengeOrdered By: Lesly Hardwick on 12-15-2024 AST [Catalytic activity/Vol] 32 U/L <32 [facility] MCV (mean corpuscular volume ) determinationOrdered By: Lesly Hardwick on 12-15-2024 MCV (RBC) [Entitic vol] 80.9 fL Low 81-99 [facility] Mean corpuscular hemoglobin (MCH) determinationOrdered By: Lesly Hardwick on 12-15-2024 MCH (RBC) [Entitic mass] 25.3 pg Low 27.0-32.0 [facility] Mean corpuscular hemoglobin concentration (MCHC) determinationOrdered By: Lesly Hardwick on 12-15-2024 MCHC (RBC) [Mass/Vol] 31.3 g/dL Low 32-36 [facility] Mean platelet volume determi nationOrdered By: Lesly Hardwick on 12-15-2024 Platelet mean volume (Bld) [Entitic vol] 11.5 fL 6.2-12.0 [facility] Monocyte percentageOrdered B y: Lesly Hardwick on 12-15-2024 Monocytes/100 WBC (Bld) 6.0 % 0-10 [facility] Neutrophil percentageOrdered By: Lesly Hardwick on 12-15-2024 Neutrophils/100 WBC (Bld) 77.6 % High 47-70 [facility] Nucleated red blood cell per centageOrdered By: Lesly Hardwick on 12-15-2024 Nucleated RBC/100 WBC (Bld) [Ratio] 0 % 0-5 [facility] Paracentesis with USon 12-15 Paracentesis with US [facility] [address] [place] [address] Paracentesis with US MR#: [id number] Acct: [id number] Name: SANDIE ANGELES DAWSON Rep #: [id number] : 1945 F 79 From: [place] PCP: Dr. Desiree Tapia MD Status: REG CLI Study: Paracentesis with US Date of Exam: 12/15/24 Exam# [id number] Ordering Dr: Moy Ramos DO PROCEDURE: PARACENTESIS WITH US 12/15/2024 REASON FOR EXAM: CIRRHOSIS. Ascites. TECHNIQUE: PARACENTESIS WITH US FINDINGS: Initial images demonstrate a [id number] Procedure: Following informed consent, an using standard sterile technique, an ultrasound-guided right abdominal diagnostic and therapeutic paracentesis was performed. 2% lidocaine local anesthesia was followed by placement of a 5 [place] Yueh catheter into the pleural fluid collection. A total of a proximally 3420 mL clear yellow fluid was successfully removed, a portion sent to the laboratory for evaluation. No complication was encountered, and the patient left the department in good condition without significant complaint. US/Paracentesis with US IMPRESSION: Successful ultrasound-guided therapeutic and diagnostic paracentesis. Laboratory results pending. Reading Location: [place] [address] CC: Dr. Desiree Tapia MD; Moy Ramos, Certified Personal Trainer: Signed Normal [facility] Platelet countOrdered By: Alejandra Hardwick on 12-15-2024 Platelets (Bld) [#/Vol] 231 10*3/uL 150-450 [facility] Potassium measurement (mass/ volume)Ordered By: Lesly Hardwick on 12-15-2024 Potassium (Unsp spec) [Mass/Vol] 4.8 mmol/L 3.3-5.1 [facility] Prothrombin Time w/INRon INR Coag (PPP) [Relative time] 1.3 {INR} Normal [facility] Comment on above: Performed By: #### L 100.0100, L501.9520, L502.0250, L503.0106, L500.4050, L503.6030, L503.6550 #### [facility] [address] [place], [address] PT Coag (PPP) [Time] 15.9 s High 11.7-14.9 [facility] Comment on above: Performed By: #### L 100.0100, L501.9520, L502.0250, L503.0106, L500.4050, L503.6030, L503.6550 #### [facility] [address] [place], [address] Prothrombin timeOrdered By: Lesly Hardwick on 12-15-2024 PT Coag (PPP) [Time] 15.9 s High 11.7-14.9 [facility] RBC Auto (Bld) [#/Vol]Ordere d By: Lesly Hardwick on 12-15-2024 RBC (Bld) [#/Vol] 3.87 10*6/uL Low 4.2-5.4 [facility] Serum creatinine measurement (mass/volume)Ordered By: Lesly Hardwick on 12-15-2024 Creatinine [Mass/Vol] 1.84 mg/dL High 0.70-1.20 [facility] Serum globulin measurementOr dered By: Lesly Hardwick on 12-15-2024 Globulin (S) [Mass/Vol] 4.2 g/dL 2.2-4.2 [facility] Serum glucose measurement (m ass/volume)Ordered By: Lesly Hardwick on 12-15-2024 Glucose [Mass/Vol] 151 mg/dL High 70-99 [facility] Serum or plasma alanine mao otransferase (ALT) measurementOrdered By: Lesly Hardwick on 12-15-2024 ALT [Catalytic activity/Vol] 13 U/L <35 [facility] Serum or plasma albumin nick urement (mass/volume)Ordered By: Lesly Hardwick on 12-15-2024 Albumin [Mass/Vol] 3.4 g/dL 3.4-4.8 [facility] Serum or plasma albumin/glob ulin mass ratioOrdered By: Lesly Hardwick on 12-15-2024 Albumin/Globulin [Mass ratio] 0.8 {ratio} Low 0.9-2.4 [facility] Serum or plasma alkaline kathleen sphatase measurementOrdered By: Lesly Hardwick on 12-15-2024 ALP [Catalytic activity/Vol] 101 U/L 35-104 [facility] Serum or plasma calcium nick urement (mass/volume)Ordered By: Lesly Hardwick on 12-15-2024 Calcium [Mass/Vol] 8.9 mg/dL 7.6-11.0 [facility] Serum or plasma urea nitroge n measurement (mass/volume)Ordered By: Lesly Hardwick on 12-15-2024 Urea nitrogen [Mass/Vol] 25 mg/dL High 4-19 [facility] Sodium levelOrdered By: Laurie lee Mulu on 12-15-2024 Sodium [Moles/Vol] 143 mmol/L 133-145 [facility] Special Stain Group IIon Special Stain Group II -------- Patient Age/Sex Location Account Attending Physician -------- SANDIE ANGELES 79/F [id number] Moy Ramos DO -------- Specimen: [id number] Received: 12/15/24 Status: EDIS Babcock Num: [id number] Spec Type: Fluid Subm Dr: DO ASMITA [...] and cell block preparation. Mr 12/15/2024 CPT: 75982,74387 Signed (signature on file) Dr. Lou Hull MD 12/20/24 1205 -------- Normal [facility] Comment on above: Performed By: #### L 100.0100, L501.9520, L502.0250, L503.0106, L500.4050, L503.6030, L503.6550 #### [facility] [address] [place], [address] Total proteinOrdered By: Josephine Hardwick on 12-15-2024 Protein [Mass/Vol] 7.7 g/dL 5.9-8.4 [facility] White blood cell (WBC) count Ordered By: Lesly Hardwick on 12-15-2024 WBC (Bld) [#/Vol] 5.3 10*3/uL 4.4-11.0 [facility] Abdomen/Pelvis W IV Cont ONL Yon 12-11-2024 Abdomen/Pelvis W IV Cont ONLY [facility] Imaging Services [address] [place] [address] Abdomen/Pelvis W IV Cont ONLY MR#: [id number] Acct: [id number] Name: SANDIE ANGELES Rep #: [id number] : 1945 F 79 From: Silvestre Segura MD PCP: Dr. Desiree Tapia MD Status: REG ER Study: Abdomen/Pelvis W IV Cont ONLY Date of Exam: Exam# [id number] Ordering Dr: Zion Colindres MD PROCEDURE: ABDOMEN/PELVIS [...] IV Cont ONLY IMPRESSION: 1. Cirrhosis with ldejmncv-on-bocxa volume of ascites. 2. Mild diffuse colonic [...] white paper guidelines. 6. Cholelithiasis. Reading Location: [id number] CC: Dr. Desiree Tapia MD; Dr. Zion Colindres MD Certified Personal Trainer: Signed Normal [facility] Absolute lymphocyte countOrd ered By: Zion Colindres on 12-11-2024 Lymphocytes Auto (Unsp spec) [#/Vol] 0.56 10*3/uL Low 0.83-4.51 [facility] Absolute neutrophil countOrd ered By: Ziontonya Colindres on 12-11-2024 Neutrophils (Bld) [#/Vol] 2.7 10*3/uL 2.0-7.7 [facility] Anion gap in Serum or Plasma Ordered By: Ziontonya Colindres on 12-11-2024 Anion gap [Moles/Vol] 12 mmol/L 5-15 [facility] Automated lymphocyte count a s percentage of total leukocytesOrdered By: Ziontonya Colindres on 12-11-2024 Lymphocytes/100 WBC Auto (Unsp spec) 15.4 % Low 19-41 [facility] BUN/creatinine ratioOrdered By: Ziontonya Colindres on 12-11-2024 Urea nitrogen/Creatinine [Mass ratio] 11.2 mg/mg 10-20 [facility] Basophil percentageOrdered B y: Ziontonya Colindres on 12-11-2024 Basophils/100 WBC (Bld) 0.8 % 0-1 [facility] Bilirubin, totalOrdered By: Ziontonya Colindres on 12-11-2024 Bilirubin [Mass/Vol] 0.96 mg/dL 0.00-1.30 [facility] CBC W/Diff, Automatedon Absolute Lymph 0.56 X10 3/uL Low 0.83-4.51 [facility] Comment on above: Performed By: #### L 100.0100 #### [facility] [address] [place] [address]. [place], [place], [id number] Absolute Neut 2.7 X10 3/uL Normal 2.0-7.7 [facility] Comment on above: Performed By: #### L 100.0100 #### [facility] [address] [place], [address] Basophils/100 WBC (Bld) 0.8 % Normal 0-1 [facility] Comment on above: Performed By: #### L 100.0100 #### [facility] [address] [place], [address] Eosinophils/100 WBC (Bld) 1.6 % Normal 0-5 [facility] Comment on above: Performed By: #### L 100.0100 #### [facility] [address] [place], [address] Erythrocyte distribution width (RBC) [Ratio] 17.1 % High 11.6-14.6 [facility] Comment on above: Performed By: #### L 100.0100 #### [facility] [address] [place], [address] Hematocrit (Bld) [Volume fraction] 28.5 % Low 37-47 [facility] Comment on above: Performed By: #### L 100.0100 #### [facility] [address] [place], [address] Hemoglobin (Bld) [Mass/Vol] 8.9 g/dL Low 12.0-15.0 [facility] Comment on above: Performed By: #### L 100.0100 #### [facility] [address] [place], [address] IG% 0.300 Normal 0.0-0.9 [facility] Comment on above: Result Comment: IG% - Immature Granulocytes (promyelocytes, myelocytes and metamyelocytes) > 1% indicates that a LEFT SHIFT is Present. Performed By: #### L 100.0100 #### [facility] [address] [place], [address] Lymphocytes/100 WBC (Bld) 15.4 % Low 19-41 [facility] Comment on above: Performed By: #### L 100.0100 #### [facility] [address] [place], [address] MCH (RBC) [Entitic mass] 25.1 pg Low 27.0-32.0 [facility] Comment on above: Performed By: #### L 100.0100 #### [facility] [address] [place], [address] MCHC (RBC) [Mass/Vol] 31.2 g/dL Low 32-36 [facility] Comment on above: Performed By: #### L 100.0100 #### [facility] [address] [place], [address] MCV (RBC) [Entitic vol] 80.3 fL Low 81-99 [facility] Comment on above: Performed By: #### L 100.0100 #### [facility] [address] [place], [address] Monocytes/100 WBC (Bld) 7.7 % Normal 0-10 [facility] Comment on above: Performed By: #### L 100.0100 #### [facility] [address] [place], [address] Neutrophils/100 WBC (Bld) 74.2 % High 47-70 [facility] Comment on above: Performed By: #### L 100.0100 #### [facility] [address] [place], [address] Nucleated RBC (Bld) [#/Vol] 0 10*3/uL Normal 0-5 [facility] Comment on above: Performed By: #### L 100.0100 #### [facility] [address] [place], [address] Platelet mean volume (Bld) [Entitic vol] 11.1 fL Normal 6.2-12.0 [facility] Comment on above: Performed By: #### L 100.0100 #### [facility] [address] [place], [address] Platelets (Bld) [#/Vol] 164 10*3/uL Normal 150-450 [facility] Comment on above: Performed By: #### L 100.0100 #### [facility] [address] [place], [address] RBC (Bld) [#/Vol] 3.55 10*6/uL Low 4.2-5.4 [facility] Comment on above: Performed By: #### L 100.0100 #### [facility] [address] [place], [address] RDW SD 49.5 fl High 35.1-43.9 [facility] Comment on above: Performed By: #### L 100.0100 #### [facility] [address] [place], [address] WBC (Bld) [#/Vol] 3.6 10*3/uL Low 4.4-11.0 [facility] Comment on above: Performed By: #### L 100.0100 #### [facility] [address] [place], [address] Absolute Lymph 0.63 X10 3/uL Low 0.83-4.51 [facility] Comment on above: Performed By: #### L 100.0100, L501.9520, L502.0250, L503.0106, L500.4050, L503.6030, L503.6550 #### [facility] [address] [place], [address] Absolute Neut 3.3 X10 3/uL Normal 2.0-7.7 [facility] Comment on above: Performed By: #### L 100.0100, L501.9520, L502.0250, L503.0106, L500.4050, L503.6030, L503.6550 #### [facility] [address] [place], [address] Basophils/100 WBC (Bld) 1.2 % High 0-1 [facility] Comment on above: Performed By: #### L 100.0100, L501.9520, L502.0250, L503.0106, L500.4050, L503.6030, L503.6550 #### [facility] [address] [place], [address] Eosinophils/100 WBC (Bld) 1.6 % Normal 0-5 [facility] Comment on above: Performed By: #### L 100.0100, L501.9520, L502.0250, L503.0106, L500.4050, L503.6030, L503.6550 #### [facility] [address] [place], [address] Erythrocyte distribution width (RBC) [Ratio] 16.9 % High 11.6-14.6 [facility] Comment on above: Performed By: #### L 100.0100, L501.9520, L502.0250, L503.0106, L500.4050, L503.6030, L503.6550 #### [facility] [address] [place], [address] Hematocrit (Bld) [Volume fraction] 31.6 % Low 37-47 [facility] Comment on above: Performed By: #### L 100.0100, L501.9520, L502.0250, L503.0106, L500.4050, L503.6030, L503.6550 #### [facility] [address] [place], [address] Hemoglobin (Bld) [Mass/Vol] 9.7 g/dL Low 12.0-15.0 [facility] Comment on above: Performed By: #### L 100.0100, L501.9520, L502.0250, L503.0106, L500.4050, L503.6030, L503.6550 #### [facility] [address] [place], [address] IG% 0.500 Normal 0.0-0.9 [facility] Comment on above: Result Comment: IG% - Immature Granulocytes (promyelocytes, myelocytes and metamyelocytes) > 1% indicates that a LEFT SHIFT is Present. Performed By: #### L 100.0100, L501.9520, L502.0250, L503.0106, L500.4050, L503.6030, L503.6550 #### [facility] [address] [place], [address] Lymphocytes/100 WBC (Bld) 14.5 % Low 19-41 [facility] Comment on above: Performed By: #### L 100.0100, L501.9520, L502.0250, L503.0106, L500.4050, L503.6030, L503.6550 #### [facility] [address] [place], [address] MCH (RBC) [Entitic mass] 24.6 pg Low 27.0-32.0 [facility] Comment on above: Performed By: #### L 100.0100, L501.9520, L502.0250, L503.0106, L500.4050, L503.6030, L503.6550 #### [facility] [address] [place], [address] MCHC (RBC) [Mass/Vol] 30.7 g/dL Low 32-36 [facility] Comment on above: Performed By: #### L 100.0100, L501.9520, L502.0250, L503.0106, L500.4050, L503.6030, L503.6550 #### [facility] [address] [place], [address] MCV (RBC) [Entitic vol] 80.2 fL Low 81-99 [facility] Comment on above: Performed By: #### L 100.0100, L501.9520, L502.0250, L503.0106, L500.4050, L503.6030, L503.6550 #### [facility] [address] [place], [address] Monocytes/100 WBC (Bld) 7.1 % Normal 0-10 [facility] Comment on above: Performed By: #### L 100.0100, L501.9520, L502.0250, L503.0106, L500.4050, L503.6030, L503.6550 #### [facility] [address] [place], [address] Neutrophils/100 WBC (Bld) 75.1 % High 47-70 [facility] Comment on above: Performed By: #### L 100.0100, L501.9520, L502.0250, L503.0106, L500.4050, L503.6030, L503.6550 #### [facility] [address] [place], [address] Nucleated RBC (Bld) [#/Vol] 0 10*3/uL Normal 0-5 [facility] Comment on above: Performed By: #### L 100.0100, L501.9520, L502.0250, L503.0106, L500.4050, L503.6030, L503.6550 #### [facility] [address] [place], [address] Platelet mean volume (Bld) [Entitic vol] 11.1 fL Normal 6.2-12.0 [facility] Comment on above: Performed By: #### L 100.0100, L501.9520, L502.0250, L503.0106, L500.4050, L503.6030, L503.6550 #### [facility] [address] [place], [address] Platelets (Bld) [#/Vol] 207 10*3/uL Normal 150-450 [facility] Comment on above: Performed By: #### L 100.0100, L501.9520, L502.0250, L503.0106, L500.4050, L503.6030, L503.6550 #### [facility] [address] [place], [address] RBC (Bld) [#/Vol] 3.94 10*6/uL Low 4.2-5.4 [facility] Comment on above: Performed By: #### L 100.0100, L501.9520, L502.0250, L503.0106, L500.4050, L503.6030, L503.6550 #### [facility] [address] [place], [address] RDW SD 49.3 fl High 35.1-43.9 [facility] Comment on above: Performed By: #### L 100.0100, L501.9520, L502.0250, L503.0106, L500.4050, L503.6030, L503.6550 #### [facility] [address] [place], [address] WBC (Bld) [#/Vol] 4.3 10*3/uL Low 4.4-11.0 [facility] Comment on above: Performed By: #### L 100.0100, L501.9520, L502.0250, L503.0106, L500.4050, L503.6030, L503.6550 #### [facility] [address] [place], [address] Carbon dioxide, total [Moles /volume] in Central venous bloodOrdered By: Zion Colindres on 12-11-2024 CO2 [Moles/Vol] 22.2 mmol/L 21.0-32.0 [facility] Chloride assayOrdered By: Halima Colindres on 12-11-2024 Chloride [Moles/Vol] 105 mmol/L 98-108 [facility] Comprehensive Metabolic Prof ilon 12-11-2024 Albumin [Mass/Vol] 3.5 g/dL Normal 3.4-4.8 [facility] Comment on above: Performed By: #### L 100.0100, L501.9520, L502.0250, L503.0106, L500.4050, L503.6030, L503.6550 #### [facility] [address] [place], [place], [id number] (142) Albumin/Globulin [Mass ratio] 0.8 {ratio} Low 0.9-2.4 [facility] Comment on above: Performed By: #### L 100.0100, L501.9520, L502.0250, L503.0106, L500.4050, L503.6030, L503.6550 #### [facility] [address] [place], [place], [phone] (827) ALK PHOS 109 U/L High 35-104 [facility] Comment on above: Performed By: #### L 100.0100, L501.9520, L502.0250, L503.0106, L500.4050, L503.6030, L503.6550 #### [facility] [address] [place], [address] ALT [Catalytic activity/Vol] 17 U/L Normal <=34 [facility] Comment on above: Performed By: #### L 100.0100, L501.9520, L502.0250, L503.0106, L500.4050, L503.6030, L503.6550 #### [facility] [address] [place], [address] AST [Catalytic activity/Vol] 38 U/L High <=31 [facility] Comment on above: Performed By: #### L 100.0100, L501.9520, L502.0250, L503.0106, L500.4050, L503.6030, L503.6550 #### [facility] [address] [place], [address] Bilirubin [Mass/Vol] 0.96 mg/dL Normal 0.00-1.30 [facility] Comment on above: Performed By: #### L 100.0100, L501.9520, L502.0250, L503.0106, L500.4050, L503.6030, L503.6550 #### [facility] [address] [place], [address] BUN/CRE 11.2 RATIO Normal 10-20 [facility] Comment on above: Performed By: #### L 100.0100, L501.9520, L502.0250, L503.0106, L500.4050, L503.6030, L503.6550 #### [facility] [address] [place], [address] Calcium [Mass/Vol] 9.1 mg/dL Normal 7.6-11.0 [facility] Comment on above: Performed By: #### L 100.0100, L501.9520, L502.0250, L503.0106, L500.4050, L503.6030, L503.6550 #### [facility] [address] [place], [address] Chloride [Moles/Vol] 105 mmol/L Normal 98-108 [facility] Comment on above: Performed By: #### L 100.0100, L501.9520, L502.0250, L503.0106, L500.4050, L503.6030, L503.6550 #### [facility] [address] [place], [address] CO2 [Moles/Vol] 22.2 mmol/L Normal 21.0-32.0 [facility] Comment on above: Performed By: #### L 100.0100, L501.9520, L502.0250, L503.0106, L500.4050, L503.6030, L503.6550 #### [facility] [address] [place], [address] Creatinine [Mass/Vol] 1.38 mg/dL High 0.70-1.20 [facility] Comment on above: Performed By: #### L 100.0100, L501.9520, L502.0250, L503.0106, L500.4050, L503.6030, L503.6550 #### [facility] [address] [place], [address] GAP 12 Normal 5-15 [facility] Comment on above: Performed By: #### L 100.0100, L501.9520, L502.0250, L503.0106, L500.4050, L503.6030, L503.6550 #### [facility] [address] [place], [address] GFR/1.73 sq M.predicted among non-blacks MDRD (S/P/Bld) [Vol rate/Area] 38 mL/min/{1.73_m2} Low >60 [facility] Comment on above: Result Comment: mL/m in/1.73m2 CKD-EPI Creatinine Equation (2020) Performed By: #### L 100.0100, L501.9520, L502.0250, L503.0106, L500.4050, L503.6030, L503.6550 #### [facility] [address] [place], [address] Globulin (S) [Mass/Vol] 4.2 g/dL Normal 2.2-4.2 [facility] Comment on above: Performed By: #### L 100.0100, L501.9520, L502.0250, L503.0106, L500.4050, L503.6030, L503.6550 #### [facility] [address] [place], [address] Glucose [Mass/Vol] 183 mg/dL High 70-99 [facility] Comment on above: Performed By: #### L 100.0100, L501.9520, L502.0250, L503.0106, L500.4050, L503.6030, L503.6550 #### [facility] [address] [place], [address] Potassium [Moles/Vol] 4.2 mmol/L Normal 3.3-5.1 [facility] Comment on above: Performed By: #### L 100.0100, L501.9520, L502.0250, L503.0106, L500.4050, L503.6030, L503.6550 #### [facility] [address] [place], [address] Sodium [Moles/Vol] 140 mmol/L Normal 133-145 [facility] Comment on above: Performed By: #### L 100.0100, L501.9520, L502.0250, L503.0106, L500.4050, L503.6030, L503.6550 #### [facility] [address] [place], [address] T PROT 7.7 g/dL Normal 5.9-8.4 [facility] Comment on above: Performed By: #### L 100.0100, L501.9520, L502.0250, L503.0106, L500.4050, L503.6030, L503.6550 #### [facility] [address] [place], [address] Urea nitrogen [Mass/Vol] 16 mg/dL Normal 4-19 [facility] Comment on above: Performed By: #### L 100.0100, L501.9520, L502.0250, L503.0106, L500.4050, L503.6030, L503.6550 #### [facility] [address] [place], [address] Emergency Department Summary on 12-11-2024 Emergency Department Summary [facility] Medical Records Department [address] [place] [address] Emergency Department Summary 12/11/24 MR#: [id number] Acct: [id number] Name: SANDIE ANGELES Rep #: [id number] : 1945 79 From: Zion Colindres MD [...] EGD and office visit with Dr. Ramos.) [facility] Medical History Thyroid disease Post-menopausal Insulin [...] household members: spouse current occupational status: retired [employer] (more content not included)... Normal [facility] Eosinophil percentageOrdered By: Zion Colindres on 12-11-2024 Eosinophils/100 WBC (Bld) 1.6 % 0-5 [facility] Erythrocyte distribution wid th ratioOrdered By: Zion Colindres on 12-11-2024 Erythrocyte distribution width (RBC) [Ratio] 17.1 % High 11.6-14.6 [facility] Erythrocyte distribution wid th standard deviationOrdered By: Zion Colindres on 12-11-2024 Erythrocyte distribution width (RBC) [Ratio] 49.5 fl High 35.1-43.9 [facility] Glomerular filtration rate ( GFR) estimation/1.73 sq m using serum, plasma, or whole bOrdered By: Zion Colindres on 12-11-2024 GFR/1.73 sq M.predicted among non-blacks MDRD (S/P/Bld) [Vol rate/Area] 38 mL/min/{1.73_m2} Low >60 [facility] Comment on above: mL/min/1.73m2 CKD-EP I Creatinine Equation (2020) Hematocrit Auto (Bld) [Volum e fraction]Ordered By: Zion Colindres on 12-11-2024 Hematocrit (Bld) [Volume fraction] 28.5 % Low 37-47 [facility] Hemoglobin measurementOrdere d By: Zion Colindres on 12-11-2024 Hemoglobin (Bld) [Mass/Vol] 8.9 g/dL Low 12.0-15.0 [facility] Immature granulocytes/100 WB C Auto (Bld)Ordered By: Zion Colindres on 12-11-2024 Immature granulocytes/100 WBC (Bld) 0.300 % 0.0-0.9 [facility] Comment on above: IG% - Immature Granu locytes (promyelocytes, myelocytes and metamyelocytes) > 1% indicates that a LEFT SHIFT is Present. Laboratory - Chemistry and C hemistry - challengeOrdered By: Zion Colindres on 12-11-2024 AST [Catalytic activity/Vol] 38 U/L High <32 [facility] Lipaseon 12-11-2024 Lipase [Catalytic activity/Vol] 64 U/L Normal 13-75 [facility] Comment on above: Result Comment: Shawn zhong note: LIPASE revised reference range effective 22. New Lipase methodology. Expected to produce lower values than the previous assay method. NEW Reference Range: 13 - 75 U/L Performed By: #### L 100.0100, L501.9520, L502.0250, L503.0106, L500.4050, L503.6030, L503.6550 #### [facility] [address] [place] [address], [address] Lipase measurementOrdered By : Zion Colindres on 12-11-2024 Lipase [Catalytic activity/Vol] 64 U/L 13-75 [facility] Comment on above: Please note:LIPASE r evised reference range effective 22. New Lipase methodology. Expected to produce lower values than the previous assay method. NEW Reference Range: 13 - 75 U/L MCV (mean corpuscular volume ) determinationOrdered By: Zion Colindres on 12-11-2024 MCV (RBC) [Entitic vol] 80.3 fL Low 81-99 [facility] Mean corpuscular hemoglobin (MCH) determinationOrdered By: Zion Colindres on 12-11-2024 MCH (RBC) [Entitic mass] 25.1 pg Low 27.0-32.0 [facility] Mean corpuscular hemoglobin concentration (MCHC) determinationOrdered By: Zion Colindres on 12-11-2024 MCHC (RBC) [Mass/Vol] 31.2 g/dL Low 32-36 [facility] Mean platelet volume determi nationOrdered By: Zion Colindres on 12-11-2024 Platelet mean volume (Bld) [Entitic vol] 11.1 fL 6.2-12.0 [facility] Monocyte percentageOrdered B y: Zion Colindres on 12-11-2024 Monocytes/100 WBC (Bld) 7.7 % 0-10 [facility] Neutrophil percentageOrdered By: Zion Colindres on 12-11-2024 Neutrophils/100 WBC (Bld) 74.2 % High 47-70 [facility] Nucleated red blood cell per centageOrdered By: Zion Colindres on 12-11-2024 Nucleated RBC/100 WBC (Bld) [Ratio] 0 % 0-5 [facility] Platelet countOrdered By: Halima Colindres on 12-11-2024 Platelets (Bld) [#/Vol] 164 10*3/uL 150-450 [facility] Potassium measurement (mass/ volume)Ordered By: Zion Colindres on 12-11-2024 Potassium (Unsp spec) [Mass/Vol] 4.2 mmol/L 3.3-5.1 [facility] RBC Auto (Bld) [#/Vol]Ordere d By: Zion Colindres on 12-11-2024 RBC (Bld) [#/Vol] 3.55 10*6/uL Low 4.2-5.4 [facility] Serum creatinine measurement (mass/volume)Ordered By: Zion Colindres on 12-11-2024 Creatinine [Mass/Vol] 1.38 mg/dL High 0.70-1.20 [facility] Serum globulin measurementOr dered By: Zion Colindres on 12-11-2024 Globulin (S) [Mass/Vol] 4.2 g/dL 2.2-4.2 [facility] Serum glucose measurement (m ass/volume)Ordered By: Zion Colindres on 12-11-2024 Glucose [Mass/Vol] 183 mg/dL High 70-99 [facility] Serum or plasma alanine mao otransferase (ALT) measurementOrdered By: Zion Colindres on 12-11-2024 ALT [Catalytic activity/Vol] 17 U/L <35 [facility] Serum or plasma albumin nick urement (mass/volume)Ordered By: Zion Colindres on 12-11-2024 Albumin [Mass/Vol] 3.5 g/dL 3.4-4.8 [facility] Serum or plasma albumin/glob ulin mass ratioOrdered By: Ziontonya Colindres on 12-11-2024 Albumin/Globulin [Mass ratio] 0.8 {ratio} Low 0.9-2.4 [facility] Serum or plasma alkaline kathleen sphatase measurementOrdered By: Ziontonya Colindres on 12-11-2024 ALP [Catalytic activity/Vol] 109 U/L High 35-104 [facility] Serum or plasma calcium nick urement (mass/volume)Ordered By: Zion Colindres on 12-11-2024 Calcium [Mass/Vol] 9.1 mg/dL 7.6-11.0 [facility] Serum or plasma urea nitroge n measurement (mass/volume)Ordered By: Zion Colindres on 12-11-2024 Urea nitrogen [Mass/Vol] 16 mg/dL 4-19 [facility] Sodium levelOrdered By: Zion Colindres on 12-11-2024 Sodium [Moles/Vol] 140 mmol/L 133-145 [facility] Total proteinOrdered By: Zion Colindres on 12-11-2024 Protein [Mass/Vol] 7.7 g/dL 5.9-8.4 [facility] White blood cell (WBC) count Ordered By: Zion Colindres on 12-11-2024 WBC (Bld) [#/Vol] 3.6 10*3/uL Low 4.4-11.0 [facility] Anion gap in Serum or Plasma Ordered By: Surendra Hidalgo on 11-28-2024 Anion gap [Moles/Vol] 17 mmol/L High 5-15 [facility] Automated blood erythrocyte countOrdered By: Surendra Hidalgo on 11-28-2024 RBC (Bld) [#/Vol] 3.88 10*6/uL Low 4.2-5.4 [facility] Comment on above: Performed By: #### L 100.0100, L501.9520, L502.0250, L503.0106, L500.4050, L503.6030, L503.6550 #### [facility] [address] [place], [place], [id number] Automated blood hematocrit ( percentage)Ordered By: Surendra Hidalgo on 11-28-2024 Hematocrit (Bld) [Volume fraction] 31.5 % Low 37-47 [facility] Comment on above: Performed By: #### L 100.0100, L501.9520, L502.0250, L503.0106, L500.4050, L503.6030, L503.6550 #### [facility] [address] [place], [place], [id number] BUN/creatinine ratioOrdered By: Surendra Hidalgo on 11-28-2024 Urea nitrogen/Creatinine [Mass ratio] 12.3 mg/mg 11-28 [facility] Bilirubin, totalOrdered By: Surendra Hidalgo on 11-28-2024 Bilirubin [Mass/Vol] 0.96 mg/dL Normal 0.00-1.30 [facility] Comment on above: Performed By: #### L 100.0100, L501.9520, L502.0250, L503.0106, L500.4050, L503.6030, L503.6550 #### [facility] [address] [place], [place], [id number] CBC-Complete Blood Cnt No Di ffon 11-28-2024 RDW SD 49.5 fl High 35.1-43.9 [facility] Comment on above: Performed By: #### L 100.0100, L501.9520, L502.0250, L503.0106, L500.4050, L503.6030, L503.6550 #### [facility] [address] [place], [place], [id number] Carbon dioxide, total [Moles /volume] in Central venous bloodOrdered By: Surendra Hidalgo on 11-28-2024 CO2 [Moles/Vol] 20.0 mmol/L Low 21.0-32.0 [facility] Comment on above: Performed By: #### L 100.0100, L501.9520, L502.0250, L503.0106, L500.4050, L503.6030, L503.6550 #### [facility] [address] [place], [place], [id number] Chloride assayOrdered By: Ra ju Hidalgo on 11-28-2024 Chloride [Moles/Vol] 105 mmol/L Normal 98-108 [facility] Comment on above: Performed By: #### L 100.0100, L501.9520, L502.0250, L503.0106, L500.4050, L503.6030, L503.6550 #### [facility] [address] [place], [place], [id number] Comprehensive Metabolic Prof ilon 11-28-2024 ALK PHOS 105 U/L High 35-104 [facility] Comment on above: Performed By: #### L 100.0100, L501.9520, L502.0250, L503.0106, L500.4050, L503.6030, L503.6550 #### [facility] [address] [place], [address] BUN/CRE 12.3 RATIO Normal 11-28 [facility] Comment on above: Performed By: #### L 100.0100, L501.9520, L502.0250, L503.0106, L500.4050, L503.6030, L503.6550 #### [facility] [address] [place], [address] GAP 17 High 5-15 [facility] Comment on above: Performed By: #### L 100.0100, L501.9520, L502.0250, L503.0106, L500.4050, L503.6030, L503.6550 #### [facility] [address] [place], [address] Potassium [Moles/Vol] 4.1 mmol/L Normal 3.3-5.1 [facility] Comment on above: Performed By: #### L 100.0100, L501.9520, L502.0250, L503.0106, L500.4050, L503.6030, L503.6550 #### [facility] [address] [place], [address] T PROT 7.8 g/dL Normal 5.9-8.4 [facility] Comment on above: Performed By: #### L 100.0100, L501.9520, L502.0250, L503.0106, L500.4050, L503.6030, L503.6550 #### [facility] [address] [place], [place], [id number] Comprehensive Metabolic Prof ilOrdered By: Surendra Hidalgo on 11-28-2024 AST [Catalytic activity/Vol] 30 U/L Normal <=31 [facility] Comment on above: Performed By: #### L 100.0100, L501.9520, L502.0250, L503.0106, L500.4050, L503.6030, L503.6550 #### [facility] [address] [place], [address] Erythrocyte distribution wid th ratioOrdered By: Surendra Hidalgo on 11-28-2024 Erythrocyte distribution width (RBC) [Ratio] 16.8 % High 11.6-14.6 [facility] Comment on above: Performed By: #### L 100.0100, L501.9520, L502.0250, L503.0106, L500.4050, L503.6030, L503.6550 #### [facility] [address] [place], [address] Erythrocyte distribution wid th standard deviationOrdered By: Surendra Hidalgo on 11-28-2024 Erythrocyte distribution width (RBC) [Ratio] 49.5 fl High 35.1-43.9 [facility] Glomerular filtration rate ( GFR) estimation/1.73 sq m using serum, plasma, or whole bOrdered By: Surendra Hidalgo on 11-28-2024 GFR/1.73 sq M.predicted among non-blacks MDRD (S/P/Bld) [Vol rate/Area] 38 mL/min/{1.73_m2} Low >60 [facility] Comment on above: mL/min/1.73m2 CKD-EP I Creatinine Equation (2020) Result Comment: mL/m in/1.73m2 CKD-EPI Creatinine Equation (2020) Performed By: #### L 100.0100, L501.9520, L502.0250, L503.0106, L500.4050, L503.6030, L503.6550 #### [facility] [address] [place], [address] Hemoglobin measurementOrdere d By: Surendra Hidalgo on 11-28-2024 Hemoglobin (Bld) [Mass/Vol] 9.5 g/dL Low 12.0-15.0 [facility] Comment on above: Performed By: #### L 100.0100, L501.9520, L502.0250, L503.0106, L500.4050, L503.6030, L503.6550 #### [facility] [address] [place], [address] MCV (mean corpuscular volume ) determinationOrdered By: Surendra Hidalgo on 11-28-2024 MCV (RBC) [Entitic vol] 81.2 fL Normal 81-99 [facility] Comment on above: Performed By: #### L 100.0100, L501.9520, L502.0250, L503.0106, L500.4050, L503.6030, L503.6550 #### [facility] [address] [place], [address] Mean corpuscular hemoglobin (MCH) determinationOrdered By: Surendra Hidalgo on 11-28-2024 MCH (RBC) [Entitic mass] 24.5 pg Low 27.0-32.0 [facility] Comment on above: Performed By: #### L 100.0100, L501.9520, L502.0250, L503.0106, L500.4050, L503.6030, L503.6550 #### [facility] [address] [place], [address] Mean corpuscular hemoglobin concentration (MCHC) determinationOrdered By: Surendra Hidalgo on 11-28-2024 MCHC (RBC) [Mass/Vol] 30.2 g/dL Low 32-36 [facility] Comment on above: Performed By: #### L 100.0100, L501.9520, L502.0250, L503.0106, L500.4050, L503.6030, L503.6550 #### [facility] [address] [place], [address] Mean platelet volume determi nationOrdered By: Surendra Hidalgo on 11-28-2024 Platelet mean volume (Bld) [Entitic vol] 12.5 fL High 6.2-12.0 [facility] Comment on above: Performed By: #### L 100.0100, L501.9520, L502.0250, L503.0106, L500.4050, L503.6030, L503.6550 #### [facility] [address] [place], [address] Neurology Visit Reporton Neurology Visit Report [facility] [address] [facility], [address] [place] [address] OFFICE VISIT Date of Service: 11/28/24 MR#: [id number] Acct: [id number] Name: SANDIE ANGELES Rep #: [id number] : 1945 Provider: Dr. Surendra vergara MD Age/Sex: 79/F Location: [facility]. Status: Signed HPI HPI Chief Complaint: Fatigue, [...] affect the eye directly. 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 She was treated with a course of [...] in the toes. She takes acetaminophen and puok-vkk-nxqhrct ibuprofen for her pain in the feet [...] however the patient did not see a cardiology consultants. Right ankle x-rays revealed mild soft tissue [...] following initiation of gabapentin. She sees a sole painter, Dr. Escobar, and has received right infrascapular region injec (more content not included)... Normal [facility] Platelet countOrdered By: Ra ju Hidalgo on 11-28-2024 Platelets (Bld) [#/Vol] 250 10*3/uL Normal 150-450 [facility] Comment on above: Performed By: #### L 100.0100, L501.9520, L502.0250, L503.0106, L500.4050, L503.6030, L503.6550 #### [facility] [address] [place], [place], [phone] (583) Potassium measurement (mass/ volume)Ordered By: Surendra Hidalgo on 11-28-2024 Potassium (Unsp spec) [Mass/Vol] 4.1 mmol/L 3.3-5.1 [facility] Serum creatinine measurement (mass/volume)Ordered By: Surendra Hidalgo on 11-28-2024 Creatinine [Mass/Vol] 1.40 mg/dL High 0.70-1.20 [facility] Comment on above: Performed By: #### L 100.0100, L501.9520, L502.0250, L503.0106, L500.4050, L503.6030, L503.6550 #### [facility] [address] [place], [place], [id number] Serum globulin measurementOr dered By: Surendra Hidalgo on 11-28-2024 Globulin (S) [Mass/Vol] 4.2 g/dL Normal 2.2-4.2 [facility] Comment on above: Performed By: #### L 100.0100, L501.9520, L502.0250, L503.0106, L500.4050, L503.6030, L503.6550 #### [facility] [address] [place], [address] Serum glucose measurement (m ass/volume)Ordered By: Surendra Hidalgo on 11-28-2024 Glucose [Mass/Vol] 200 mg/dL High 70-99 [facility] Comment on above: Performed By: #### L 100.0100, L501.9520, L502.0250, L503.0106, L500.4050, L503.6030, L503.6550 #### [facility] [address] [place], [address] Serum or plasma alanine mao otransferase (ALT) measurementOrdered By: Surendra Hidalgo on 11-28-2024 ALT [Catalytic activity/Vol] 13 U/L Normal <=34 [facility] Comment on above: Performed By: #### L 100.0100, L501.9520, L502.0250, L503.0106, L500.4050, L503.6030, L503.6550 #### [facility] [address] [place], [address] Serum or plasma albumin nick urement (mass/volume)Ordered By: Surendra Hidalgo on 11-28-2024 Albumin [Mass/Vol] 3.6 g/dL Normal 3.4-4.8 [facility] Comment on above: Performed By: #### L 100.0100, L501.9520, L502.0250, L503.0106, L500.4050, L503.6030, L503.6550 #### [facility] [address] [place], [address] Serum or plasma albumin/glob ulin mass ratioOrdered By: Surendra Hidalgo on 11-28-2024 Albumin/Globulin [Mass ratio] 0.8 {ratio} Low 0.9-2.4 [facility] Comment on above: Performed By: #### L 100.0100, L501.9520, L502.0250, L503.0106, L500.4050, L503.6030, L503.6550 #### [facility] [address] [place], [address] Serum or plasma alkaline kathleen sphatase measurementOrdered By: Surendra Hidalgo on 11-28-2024 ALP [Catalytic activity/Vol] 105 U/L High 35-104 [facility] Serum or plasma calcium nick urement (mass/volume)Ordered By: Surendra Hidalgo on 11-28-2024 Calcium [Mass/Vol] 8.8 mg/dL Normal 7.6-11.0 [facility] Comment on above: Performed By: #### L 100.0100, L501.9520, L502.0250, L503.0106, L500.4050, L503.6030, L503.6550 #### [facility] [address] [place], [address] Serum or plasma urea nitroge n measurement (mass/volume)Ordered By: Surendra Hidalgo on 11-28-2024 Urea nitrogen [Mass/Vol] 17 mg/dL Normal 4-19 [facility] Comment on above: Performed By: #### L 100.0100, L501.9520, L502.0250, L503.0106, L500.4050, L503.6030, L503.6550 #### [facility] [address] [place], [address] Sodium levelOrdered By: Katiana Hidalgo on 11-28-2024 Sodium [Moles/Vol] 142 mmol/L Normal 133-145 [facility] Comment on above: Performed By: #### L 100.0100, L501.9520, L502.0250, L503.0106, L500.4050, L503.6030, L503.6550 #### [facility] [address] [facility] [place], [address] Total proteinOrdered By: Gt Hidalgo on 11-28-2024 Protein [Mass/Vol] 7.8 g/dL 5.9-8.4 [facility] White blood cell (WBC) count Ordered By: Surendra Hidalgo on 11-28-2024 WBC (Bld) [#/Vol] 7.3 10*3/uL Normal 4.4-11.0 [facility] Comment on above: Performed By: #### L 100.0100, L501.9520, L502.0250, L503.0106, L500.4050, L503.6030, L503.6550 #### [facility] [address] [place], [address] ABD Limited w/ Elastographyo n 11-25-2024 ABD Limited w/ Elastography [facility] Imaging Services [address] [place] [address] ABD Limited w/ Elastography MR#: [id number] Acct: [id number] Name: SANDIE ANGELES Rep #: [id number] : 1945 F 79 From: Nic cramer MD PCP: Dr. Desiree Tapia MD Status: REG CLI Study: ABD Limited w/ Elastography Date of Exam: 11/09 09/02 Exam# [id number] Ordering Dr: Moy Ramos DO PROCEDURE: ABD [...] measurement may be in question. Reading Location: [place] [address] CC: Dr. Desiree Tapia MD; Moy Ramos DO Certified Personal Trainer: Signed Normal [facility] Carotid Duplex Ultrasoundon 11-22-2024 Carotid Duplex Ultrasound [facility] [address] [place] [address] Carotid Duplex Ultrasound 11/22/24 1317 MR#: [id number] Acct: [id number] Name: SANDIE ANGELES DAWSON Rep #: [id number] : 1945 79 From: Arya Argueta MD Attending Dr: SUZETTE Cavazos Status: REG CLI Ordering Dr: Haley Menard Date: 11/22/24 Location: [facility] Sex: F C Admitted: Reason For [...] the left vertebral artery. Procedure Carotid Duplex 12180. This is a Carotid Duplex examination using [...] Dictated: 11/22/24 1317 Date Transcribed: 11/23/24 1011 Certified Personal Trainer: Signed [facility] Office Visit Reporton 2024 Office Visit Report [facility] [address] [place] [address] OFFICE VISIT Date of Service: 11/03/24 MR#: [id number] Acct: [id number] Patient: SANDIE ANGELES Rep #: [id number] : 1945 Provider: Moy Ramos DO Age/Sex: 79/F Location: [facility] Status: Signed Intake Vital Signs 10/25/24 12:27 Height 5 ft 1 in Intake Visit Reasons: Cap Endo Chief Complaint: Anemia Allergies Sulfa (Sulfonamide Antibiotics) Allergy (Unknown, Verified 10/25/24 12:26) Hives adhesive tape Adverse Reaction (Intermediate, Verified 10/25/24 12:26) Rash latex Adverse Reaction (Verified 10/25/24 12:26) skin reaction Have you fallen in the past year?: No Office Procedures Procedure Administration Route: PO Administration Location: [facility] Dispensed Units: 1 Capsule Lot Number: [id number] Expiration Date: 08/18/25 Capsule ID Number: [id number] Consent Form Signed: Yes Comments: Tolerated well. Reviewed instructions. Clinical Quality Measures Falls Risk Screening/Assistive Devices Have you fallen in the past year?: No 11/03/24 1036 Date Moy Pablo Signature: Date (if applicable) CC: Normal [facility] EGD Reporton 10-25-2024 EGD Report [facility] Medical Records Department [address] [place] [address] EGD Report MR#: [id number] Acct: [id number] Name: SANDIE ANGELES Rep #: [id number] : 1945 79 From: Moy Ramos DO PCP: Dr. Desiree Tapia MD Status:[facility] Patient Name: Sandie Angeles Procedure Date: 10/25/2024 [...] present medications. Procedure Code(s): --- Professional --- 98073, Small intestinal endoscopy, enteroscopy beyond second portion of duodenum, not including ileum; with control of bleeding (eg, injection, bipolar cautery, unipolar cautery, laser, heater probe, stapler, plasma stitching machine setter) CPT copyright 2021 [employer]. All rights reserved. The codes documented in this report are preliminary and upon yard rigger review may be revised to meet current compliance requirements. Moy Ramos DO 10/25/2024 1:53:07 PM This report has been signed electronically. Number of Addenda: 0 Note Initiated On: 10/25/2024 1:23 PM 10/25/24 1353 Date Moy Ramos DO Cosignbilly Signature: Date (if indicated) CC: Dr. Desiree Tapia MD; Moy Ramos DO Date Dictated: 10/25/24 1323 Date Transcribed: Certified Personal Trainer: PEDRO LUIS Signed [facility] MR/OPIvy 10-25-2024 MR/OP.[facility] Medical Records Department [address] [place] [address] Provation Physician Letter MR#: [id number] Acct: [id number] Name: SANDIE ANGELES Rep #: [id number] : 1945 79 From: Moy Ramos DO PCP: Dr. Desiree Tapia MD Status:REG [facility] 10/25/2024 Desiree Tapia [address] [place] [address] [address] Re : Upper GI endoscopy procedure for [...] DO Date Dictated: 10/25/24 1323 Date Transcribed: Certified Personal Trainer: RF Signed [facility] MR/POSTOP.Lissa 10-25-2024 MR/POSTOP.[facility] Medical Records Department [address] [place] [address] Anesthesia Postop Eval I 10/25/24 1352 MR#: [id number] Acct: [id number] Name: SANDIE ANGELES DAWSON Rep #: [id number] : 1945 79 From: Stanislav Altamirano PCP: Dr. Desiree Tapia MD Status:[facility] Y Race: C Location: [place] [address] Anesthesia: Postop Eval I Current Vital Signs [...] Stanislav Chauhan Signature: Date CC: Signed Normal [facility] MR/[id number] 10-25-2024 MR/POSTOPAN2 [facility] Medical Records Department [address] [place] [address] Anesthesia Postop Eval II 10/25/24 1507 MR#: [id number] Acct: [id number] Name: SANDIE ANGELES DAWSON Rep #: [id number] : 1945 79 From: Margarita Gonzalez CRNA PCP: Dr. Desiree Tapia MD Status:[facility] Y Race: C Location: EN Anesthesia [...] Margarita Jonesignbilly Signature: Date CC: Signed Normal [facility] Absolute lymphocyte countOrd ered By: Lesly Hardwick on 10-21-2024 Lymphocytes Auto (Unsp spec) [#/Vol] 0.57 10*3/uL Low 0.83-4.51 [facility] Absolute neutrophil countOrd ered By: Lesly Hardwick on 10-21-2024 Neutrophils (Bld) [#/Vol] 3.1 10*3/uL 2.0-7.7 [facility] Anion gap in Serum or Plasma Ordered By: Lesly Hardwick on 10-21-2024 Anion gap [Moles/Vol] 15 mmol/L 5-15 [facility] Automated lymphocyte count a s percentage of total leukocytesOrdered By: Lesly Hardwick on 10-21-2024 Lymphocytes/100 WBC Auto (Unsp spec) 13.5 % Low 19-41 [facility] BUN/creatinine ratioOrdered By: Lesly Mulu on 10-21-2024 Urea nitrogen/Creatinine [Mass ratio] 15.6 mg/mg 10-20 [facility] Basophil percentageOrdered B y: Lesly Mulu on 10-21-2024 Basophils/100 WBC (Bld) 0.9 % 0-1 [facility] Bilirubin, totalOrdered By: Lesly Hardwick on 10-21-2024 Bilirubin [Mass/Vol] 0.58 mg/dL 0.00-1.30 [facility] CBC W/Diff, Automatedon 10-10-2024 Absolute Lymph 0.57 X10 3/uL Low 0.83-4.51 [facility] Comment on above: Performed By: #### L 100.0100, L501.9520, L502.0250, L503.0106, L500.4050, L503.6030, L503.6550 #### [facility] [address] [place], [address] Absolute Neut 3.1 X10 3/uL Normal 2.0-7.7 [facility] Comment on above: Performed By: #### L 100.0100, L501.9520, L502.0250, L503.0106, L500.4050, L503.6030, L503.6550 #### [facility] [address] [place], [address] Basophils/100 WBC (Bld) 0.9 % Normal 0-1 [facility] Comment on above: Performed By: #### L 100.0100, L501.9520, L502.0250, L503.0106, L500.4050, L503.6030, L503.6550 #### [facility] [address] [place], [address] Eosinophils/100 WBC (Bld) 3.1 % Normal 0-5 [facility] Comment on above: Performed By: #### L 100.0100, L501.9520, L502.0250, L503.0106, L500.4050, L503.6030, L503.6550 #### [facility] [address] [place], [address] Erythrocyte distribution width (RBC) [Ratio] 17.2 % High 11.6-14.6 [facility] Comment on above: Performed By: #### L 100.0100, L501.9520, L502.0250, L503.0106, L500.4050, L503.6030, L503.6550 #### [facility] [address] [place], [address] Hematocrit (Bld) [Volume fraction] 26.7 % Low 37-47 [facility] Comment on above: Performed By: #### L 100.0100, L501.9520, L502.0250, L503.0106, L500.4050, L503.6030, L503.6550 #### [facility] [address] [place], [address] Hemoglobin (Bld) [Mass/Vol] 8.1 g/dL Low 12.0-15.0 [facility] Comment on above: Performed By: #### L 100.0100, L501.9520, L502.0250, L503.0106, L500.4050, L503.6030, L503.6550 #### [facility] [address] [place], [address] IG% 0.500 Normal 0.0-0.9 [facility] Comment on above: Result Comment: IG% - Immature Granulocytes (promyelocytes, myelocytes and metamyelocytes) > 1% indicates that a LEFT SHIFT is Present. Performed By: #### L 100.0100, L501.9520, L502.0250, L503.0106, L500.4050, L503.6030, L503.6550 #### [facility] [address] [place], [address] Lymphocytes/100 WBC (Bld) 13.5 % Low 19-41 [facility] Comment on above: Performed By: #### L 100.0100, L501.9520, L502.0250, L503.0106, L500.4050, L503.6030, L503.6550 #### [facility] [address] [place], [address] MCH (RBC) [Entitic mass] 25.4 pg Low 27.0-32.0 [facility] Comment on above: Performed By: #### L 100.0100, L501.9520, L502.0250, L503.0106, L500.4050, L503.6030, L503.6550 #### [facility] [address] [place], [address] MCHC (RBC) [Mass/Vol] 30.3 g/dL Low 32-36 [facility] Comment on above: Performed By: #### L 100.0100, L501.9520, L502.0250, L503.0106, L500.4050, L503.6030, L503.6550 #### [facility] [address] [place], [address] MCV (RBC) [Entitic vol] 83.7 fL Normal 81-99 [facility] Comment on above: Performed By: #### L 100.0100, L501.9520, L502.0250, L503.0106, L500.4050, L503.6030, L503.6550 #### [facility] [address] [place], [address] Monocytes/100 WBC (Bld) 7.8 % Normal 0-10 [facility] Comment on above: Performed By: #### L 100.0100, L501.9520, L502.0250, L503.0106, L500.4050, L503.6030, L503.6550 #### [facility] [address] [place], [address] Neutrophils/100 WBC (Bld) 74.2 % High 47-70 [facility] Comment on above: Performed By: #### L 100.0100, L501.9520, L502.0250, L503.0106, L500.4050, L503.6030, L503.6550 #### [facility] [address] [place], [address] Nucleated RBC (Bld) [#/Vol] 0 10*3/uL Normal 0-5 [facility] Comment on above: Performed By: #### L 100.0100, L501.9520, L502.0250, L503.0106, L500.4050, L503.6030, L503.6550 #### [facility] [address] [place], [address] Platelet mean volume (Bld) [Entitic vol] 11.1 fL Normal 6.2-12.0 [facility] Comment on above: Performed By: #### L 100.0100, L501.9520, L502.0250, L503.0106, L500.4050, L503.6030, L503.6550 #### [facility] [address] [place], [address] Platelets (Bld) [#/Vol] 164 10*3/uL Normal 150-450 [facility] Comment on above: Performed By: #### L 100.0100, L501.9520, L502.0250, L503.0106, L500.4050, L503.6030, L503.6550 #### [facility] [address] [place], [address] RBC (Bld) [#/Vol] 3.19 10*6/uL Low 4.2-5.4 [facility] Comment on above: Performed By: #### L 100.0100, L501.9520, L502.0250, L503.0106, L500.4050, L503.6030, L503.6550 #### [facility] [address] [place], [address] RDW SD 51.8 fl High 35.1-43.9 [facility] Comment on above: Performed By: #### L 100.0100, L501.9520, L502.0250, L503.0106, L500.4050, L503.6030, L503.6550 #### [facility] [address] [place], [address] WBC (Bld) [#/Vol] 4.2 10*3/uL Low 4.4-11.0 [facility] Comment on above: Performed By: #### L 100.0100, L501.9520, L502.0250, L503.0106, L500.4050, L503.6030, L503.6550 #### [facility] [address] [place], [address] Carbon dioxide, total [Moles /volume] in Central venous bloodOrdered By: Lesly Hardwick on 10-21-2024 CO2 [Moles/Vol] 18.5 mmol/L Low 21.0-32.0 [facility] Chloride assayOrdered By: Alejandra Hardwick on 10-21-2024 Chloride [Moles/Vol] 107 mmol/L 98-108 [facility] Comprehensive Metabolic Prof ilon 10-21-2024 Albumin [Mass/Vol] 3.7 g/dL Normal 3.4-4.8 [facility] Comment on above: Performed By: #### L 100.0100, L501.9520, L502.0250, L503.0106, L500.4050, L503.6030, L503.6550 #### [facility] [address] [place], [address] Albumin/Globulin [Mass ratio] 1.0 {ratio} Normal 0.9-2.4 [facility] Comment on above: Performed By: #### L 100.0100, L501.9520, L502.0250, L503.0106, L500.4050, L503.6030, L503.6550 #### [facility] [address] [place], [address] ALK PHOS 97 U/L Normal 35-104 [facility] Comment on above: Performed By: #### L 100.0100, L501.9520, L502.0250, L503.0106, L500.4050, L503.6030, L503.6550 #### [facility] [address] [place], [address] ALT [Catalytic activity/Vol] 12 U/L Normal <=34 [facility] Comment on above: Performed By: #### L 100.0100, L501.9520, L502.0250, L503.0106, L500.4050, L503.6030, L503.6550 #### [facility] [address] [place], [address] AST [Catalytic activity/Vol] 28 U/L Normal <=31 [facility] Comment on above: Performed By: #### L 100.0100, L501.9520, L502.0250, L503.0106, L500.4050, L503.6030, L503.6550 #### [facility] [address] [place], [address] Bilirubin [Mass/Vol] 0.58 mg/dL Normal 0.00-1.30 [facility] Comment on above: Performed By: #### L 100.0100, L501.9520, L502.0250, L503.0106, L500.4050, L503.6030, L503.6550 #### [facility] [address] [place], [address] BUN/CRE 15.6 RATIO Normal 10-20 [facility] Comment on above: Performed By: #### L 100.0100, L501.9520, L502.0250, L503.0106, L500.4050, L503.6030, L503.6550 #### [facility] [address] [place], [address] Calcium [Mass/Vol] 8.4 mg/dL Normal 7.6-11.0 [facility] Comment on above: Performed By: #### L 100.0100, L501.9520, L502.0250, L503.0106, L500.4050, L503.6030, L503.6550 #### [facility] [address] [place], [address] Chloride [Moles/Vol] 107 mmol/L Normal 98-108 [facility] Comment on above: Performed By: #### L 100.0100, L501.9520, L502.0250, L503.0106, L500.4050, L503.6030, L503.6550 #### [facility] [address] [place], [address] CO2 [Moles/Vol] 18.5 mmol/L Low 21.0-32.0 [facility] Comment on above: Performed By: #### L 100.0100, L501.9520, L502.0250, L503.0106, L500.4050, L503.6030, L503.6550 #### [facility] [address] [place], [address] Creatinine [Mass/Vol] 1.35 mg/dL High 0.70-1.20 [facility] Comment on above: Performed By: #### L 100.0100, L501.9520, L502.0250, L503.0106, L500.4050, L503.6030, L503.6550 #### [facility] [address] [place], [address] GAP 15 Normal 5-15 [facility] Comment on above: Performed By: #### L 100.0100, L501.9520, L502.0250, L503.0106, L500.4050, L503.6030, L503.6550 #### [facility] [address] [place], [address] GFR/1.73 sq M.predicted among non-blacks MDRD (S/P/Bld) [Vol rate/Area] 39 mL/min/{1.73_m2} Low >60 [facility] Comment on above: Result Comment: mL/m in/1.73m2 CKD-EPI Creatinine Equation (2020) Performed By: #### L 100.0100, L501.9520, L502.0250, L503.0106, L500.4050, L503.6030, L503.6550 #### [facility] [address] [place], [address] Globulin (S) [Mass/Vol] 3.6 g/dL Normal 2.2-4.2 [facility] Comment on above: Performed By: #### L 100.0100, L501.9520, L502.0250, L503.0106, L500.4050, L503.6030, L503.6550 #### [facility] [address] [place], [address] Glucose [Mass/Vol] 170 mg/dL High 70-99 [facility] Comment on above: Performed By: #### L 100.0100, L501.9520, L502.0250, L503.0106, L500.4050, L503.6030, L503.6550 #### [facility] [address] [place], [address] Potassium [Moles/Vol] 3.9 mmol/L Normal 3.3-5.1 [facility] Comment on above: Performed By: #### L 100.0100, L501.9520, L502.0250, L503.0106, L500.4050, L503.6030, L503.6550 #### [facility] [address] [place], [address] Sodium [Moles/Vol] 141 mmol/L Normal 133-145 [facility] Comment on above: Performed By: #### L 100.0100, L501.9520, L502.0250, L503.0106, L500.4050, L503.6030, L503.6550 #### [facility] [address] [place], [address] T PROT 7.3 g/dL Normal 5.9-8.4 [facility] Comment on above: Performed By: #### L 100.0100, L501.9520, L502.0250, L503.0106, L500.4050, L503.6030, L503.6550 #### [facility] [address] [place], [address] Urea nitrogen [Mass/Vol] 21 mg/dL High 4-19 [facility] Comment on above: Performed By: #### L 100.0100, L501.9520, L502.0250, L503.0106, L500.4050, L503.6030, L503.6550 #### [facility] [address] [place], [address] Eosinophil percentageOrdered By: Lesly Hardwick on 10-21-2024 Eosinophils/100 WBC (Bld) 3.1 % 0-5 [facility] Erythrocyte distribution wid th ratioOrdered By: Lesly Hardwick on 10-21-2024 Erythrocyte distribution width (RBC) [Ratio] 17.2 % High 11.6-14.6 [facility] Erythrocyte distribution wid th standard deviationOrdered By: Lesly Hardwick on 10-21-2024 Erythrocyte distribution width (RBC) [Ratio] 51.8 fl High 35.1-43.9 [facility] Gastroenterology Visit Repor ton 10-21-2024 Gastroenterology Visit Report [facility] [address] [place] [address] OFFICE VISIT Date of Service: 10/21/24 MR#: [id number] Acct: [id number] Name: SANDIE ANGELES Rep #: [id number] : 1945 Provider: SUZETTE Carlson Age/Sex: 79/F Location: [facility] Status: Signed Intake Vital Signs 06/28/24 14:04 [...] you fallen in the past year?: No [facility] Medical History (Updated 08/14/24 @ 18:47 [...] in: other frequency: 1-2 times per week luna/worship: Sikh seatbelt use: always HPI HPI Chief Complaint: [...] with swal (more content not included)... Normal [facility] Glomerular filtration rate ( GFR) estimation/1.73 sq m using serum, plasma, or whole bOrdered By: Lesly Hardwick on 10-21-2024 GFR/1.73 sq M.predicted among non-blacks MDRD (S/P/Bld) [Vol rate/Area] 39 mL/min/{1.73_m2} Low >60 [facility] Comment on above: mL/min/1.73m2 CKD-EP I Creatinine Equation (2020) Hematocrit Auto (Bld) [Volum e fraction]Ordered By: Lesly Hardwick on 10-21-2024 Hematocrit (Bld) [Volume fraction] 26.7 % Low 37-47 [facility] Hemoglobin measurementOrdere d By: Lesly Hardwick on 10-21-2024 Hemoglobin (Bld) [Mass/Vol] 8.1 g/dL Low 12.0-15.0 [facility] Immature granulocytes/100 WB C Auto (Bld)Ordered By: Lesly Hardwick on 10-21-2024 Immature granulocytes/100 WBC (Bld) 0.500 % 0.0-0.9 [facility] Comment on above: IG% - Immature Granu locytes (promyelocytes, myelocytes and metamyelocytes) > 1% indicates that a LEFT SHIFT is Present. Laboratory - Chemistry and C hemistry - challengeOrdered By: Lesly Mulu on 10-21-2024 AST [Catalytic activity/Vol] 28 U/L <32 [facility] MCV (mean corpuscular volume ) determinationOrdered By: Lesly Mejiadamian on 10-21-2024 MCV (RBC) [Entitic vol] 83.7 fL 81-99 [facility] MR/PAT.ANEon 10-21-2024 MR/PAT.ANE [facility] Medical Records Department [address] [place] [address] PAT - Anesthesia 10/21/24 1228 MR#: [id number] Acct: [id number] Name: SANDIE ANGELES Rep #: [id number] : 1945 79 From: Arya Dumont MD PCP: Dr. 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 Hx Hospitalization No 10/21/24 11:31 Any Problems [...] take am of surgery PONV PONV - wafer polisher: PONV - wafer polisher Female Yes 10/21/24 11:31 HX of Motion [...] 06/28/24 14:04 Respiratory Assessment Respiratory Assessment - wafer polisher: Respiratory Tract Infection Hx - wafer polisher Hx Respiratory Tract Infection No 10/21/24 11:31 STOP Sleep Apnea STOP Sleep Apnea - wafer polisher: STOP Sleep Apnea - wafer polisher Hx Hypertension Yes: CONTROLLED WITH MED 10/21/24 [...] Tobacco Use History Tobacco Use History - wafer polisher: Tobacco Use History - wafer polisher Tobacco Use Non-smoker 09/10/21 10:00 Smoking Status Never smoker 10/21/24 11:31 Hx Tobacco Use No 10/21/24 11:31 Years Smoking Packs Smoked per Day Smoking Cessation Date was within the last 15 years Hx Smoking Cessation Date Hx Smoking Cessation No: patient doesn't smoke 10/21/24 11:31 Counseling Hematologic Medial History 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 Normal [facility] Mean corpuscular hemoglobin (MCH) determinationOrdered By: Lesly Hardwick on 10-21-2024 MCH (RBC) [Entitic mass] 25.4 pg Low 27.0-32.0 [facility] Mean corpuscular hemoglobin concentration (MCHC) determinationOrdered By: Lesly Hardwick on 10-21-2024 MCHC (RBC) [Mass/Vol] 30.3 g/dL Low 32-36 [facility] Mean platelet volume determi nationOrdered By: Lesly Hardwick on 10-21-2024 Platelet mean volume (Bld) [Entitic vol] 11.1 fL 6.2-12.0 [facility] Monocyte percentageOrdered B y: Lesly Hardwick on 10-21-2024 Monocytes/100 WBC (Bld) 7.8 % 0-10 [facility] Neutrophil percentageOrdered By: Lesly Hardwick on 10-21-2024 Neutrophils/100 WBC (Bld) 74.2 % High 47-70 [facility] Nucleated red blood cell per centageOrdered By: Lesly Hardwick on 10-21-2024 Nucleated RBC/100 WBC (Bld) [Ratio] 0 % 0-5 [facility] Platelet countOrdered By: Alejandra Hardwick on 10-21-2024 Platelets (Bld) [#/Vol] 164 10*3/uL 150-450 [facility] Potassium measurement (mass/ volume)Ordered By: Lesly Hardwick on 10-21-2024 Potassium (Unsp spec) [Mass/Vol] 3.9 mmol/L 3.3-5.1 [facility] RBC Auto (Bld) [#/Vol]Ordere d By: Lesly Hardwick on 10-21-2024 RBC (Bld) [#/Vol] 3.19 10*6/uL Low 4.2-5.4 [facility] Serum creatinine measurement (mass/volume)Ordered By: Lesly Hardwick on 10-21-2024 Creatinine [Mass/Vol] 1.35 mg/dL High 0.70-1.20 [facility] Serum globulin measurementOr dered By: Lesly Hardwick on 10-21-2024 Globulin (S) [Mass/Vol] 3.6 g/dL 2.2-4.2 [facility] Serum glucose measurement (m ass/volume)Ordered By: Lesly Hardwick on 10-21-2024 Glucose [Mass/Vol] 170 mg/dL High 70-99 [facility] Serum or plasma alanine mao otransferase (ALT) measurementOrdered By: Lesly Hardwick on 10-21-2024 ALT [Catalytic activity/Vol] 12 U/L <35 [facility] Serum or plasma albumin nick urement (mass/volume)Ordered By: Lesly Hardwick on 10-21-2024 Albumin [Mass/Vol] 3.7 g/dL 3.4-4.8 [facility] Serum or plasma albumin/glob ulin mass ratioOrdered By: Lesly Hardwick on 10-21-2024 Albumin/Globulin [Mass ratio] 1.0 {ratio} 0.9-2.4 [facility] Serum or plasma alkaline kathleen sphatase measurementOrdered By: Lesly Hardwick on 10-21-2024 ALP [Catalytic activity/Vol] 97 U/L 35-104 [facility] Serum or plasma calcium nick urement (mass/volume)Ordered By: Lesly Hardwick on 10-21-2024 Calcium [Mass/Vol] 8.4 mg/dL 7.6-11.0 [facility] Serum or plasma urea nitroge n measurement (mass/volume)Ordered By: Lesly Hardwick on 10-21-2024 Urea nitrogen [Mass/Vol] 21 mg/dL High 4-19 [facility] Sodium levelOrdered By: Laurie Hardwick on 10-21-2024 Sodium [Moles/Vol] 141 mmol/L 133-145 [facility] Total proteinOrdered By: Josephine Hardwick on 10-21-2024 Protein [Mass/Vol] 7.3 g/dL 5.9-8.4 [facility] White blood cell (WBC) count Ordered By: Lesly Hardwick on 10-21-2024 WBC (Bld) [#/Vol] 4.2 10*3/uL Low 4.4-11.0 [facility] Absolute lymphocyte countOrd ered By: Desiree Tapia on 10-04-2024 Lymphocytes Auto (Unsp spec) [#/Vol] 0.83 10*3/uL 0.83-4.51 [facility] Absolute neutrophil countOrd ered By: Desiree Tapia on 10-04-2024 Neutrophils (Bld) [#/Vol] 5.4 10*3/uL 2.0-7.7 [facility] Anion gap in Serum or Plasma Ordered By: Desiree Tapia on 10-04-2024 Anion gap [Moles/Vol] 15 mmol/L 5-15 [facility] Automated lymphocyte count a s percentage of total leukocytesOrdered By: Desiree Tapia on 10-04-2024 Lymphocytes/100 WBC Auto (Unsp spec) 11.8 % Low 19-41 [facility] BUN/creatinine ratioOrdered By: Desiree Tapia on 10-04-2024 Urea nitrogen/Creatinine [Mass ratio] 13.8 mg/mg 10-20 [facility] Basophil percentageOrdered B y: Desiree Tapia on 10-04-2024 Basophils/100 WBC (Bld) 0.9 % 0-1 [facility] Bilirubin, totalOrdered By: Desiree Tapia on 10-04-2024 Bilirubin [Mass/Vol] 0.70 mg/dL 0.00-1.30 [facility] CBC W/Diff, Automatedon 08-2 -2024 Absolute Lymph 0.83 X10 3/uL Normal 0.83-4.51 [facility] Comment on above: Performed By: #### L 100.0100, L501.9520, L502.0250, L503.0106, L500.4050, L503.6030, L503.6550 #### [facility] [address] [place], [address] Absolute Neut 5.4 X10 3/uL Normal 2.0-7.7 [facility] Comment on above: Performed By: #### L 100.0100, L501.9520, L502.0250, L503.0106, L500.4050, L503.6030, L503.6550 #### [facility] [address] [place], [address] Basophils/100 WBC (Bld) 0.9 % Normal 0-1 [facility] Comment on above: Performed By: #### L 100.0100, L501.9520, L502.0250, L503.0106, L500.4050, L503.6030, L503.6550 #### [facility] [address] [place], [address] Eosinophils/100 WBC (Bld) 2.1 % Normal 0-5 [facility] Comment on above: Performed By: #### L 100.0100, L501.9520, L502.0250, L503.0106, L500.4050, L503.6030, L503.6550 #### [facility] [address] [place], [address] Erythrocyte distribution width (RBC) [Ratio] 14.9 % High 11.6-14.6 [facility] Comment on above: Performed By: #### L 100.0100, L501.9520, L502.0250, L503.0106, L500.4050, L503.6030, L503.6550 #### [facility] [address] [place], [address] Hematocrit (Bld) [Volume fraction] 28.0 % Low 37-47 [facility] Comment on above: Performed By: #### L 100.0100, L501.9520, L502.0250, L503.0106, L500.4050, L503.6030, L503.6550 #### [facility] [address] [place], [address] Hemoglobin (Bld) [Mass/Vol] 8.3 g/dL Low 12.0-15.0 [facility] Comment on above: Performed By: #### L 100.0100, L501.9520, L502.0250, L503.0106, L500.4050, L503.6030, L503.6550 #### [facility] [address] [place], [address] IG% 1.600 High 0.0-0.9 [facility] Comment on above: Result Comment: IG% - Immature Granulocytes (promyelocytes, myelocytes and metamyelocytes) > 1% indicates that a LEFT SHIFT is Present. Performed By: #### L 100.0100, L501.9520, L502.0250, L503.0106, L500.4050, L503.6030, L503.6550 #### [facility] [address] [place], [address] Lymphocytes/100 WBC (Bld) 11.8 % Low 19-41 [facility] Comment on above: Performed By: #### L 100.0100, L501.9520, L502.0250, L503.0106, L500.4050, L503.6030, L503.6550 #### [facility] [address] [place], [address] MCH (RBC) [Entitic mass] 24.9 pg Low 27.0-32.0 [facility] Comment on above: Performed By: #### L 100.0100, L501.9520, L502.0250, L503.0106, L500.4050, L503.6030, L503.6550 #### [facility] [address] [place], [address] MCHC (RBC) [Mass/Vol] 29.6 g/dL Low 32-36 [facility] Comment on above: Performed By: #### L 100.0100, L501.9520, L502.0250, L503.0106, L500.4050, L503.6030, L503.6550 #### [facility] [address] [place], [address] MCV (RBC) [Entitic vol] 83.8 fL Normal 81-99 [facility] Comment on above: Performed By: #### L 100.0100, L501.9520, L502.0250, L503.0106, L500.4050, L503.6030, L503.6550 #### [facility] [address] [place], [address] Monocytes/100 WBC (Bld) 7.8 % Normal 0-10 [facility] Comment on above: Performed By: #### L 100.0100, L501.9520, L502.0250, L503.0106, L500.4050, L503.6030, L503.6550 #### [facility] [address] [place], [address] Neutrophils/100 WBC (Bld) 75.8 % High 47-70 [facility] Comment on above: Performed By: #### L 100.0100, L501.9520, L502.0250, L503.0106, L500.4050, L503.6030, L503.6550 #### [facility] [address] [place], [address] Nucleated RBC (Bld) [#/Vol] 0 10*3/uL Normal 0-5 [facility] Comment on above: Performed By: #### L 100.0100, L501.9520, L502.0250, L503.0106, L500.4050, L503.6030, L503.6550 #### [facility] [address] [place], [address] Platelet mean volume (Bld) [Entitic vol] 11.9 fL Normal 6.2-12.0 [facility] Comment on above: Performed By: #### L 100.0100, L501.9520, L502.0250, L503.0106, L500.4050, L503.6030, L503.6550 #### [facility] [address] [place], [address] Platelets (Bld) [#/Vol] 220 10*3/uL Normal 150-450 [facility] Comment on above: Performed By: #### L 100.0100, L501.9520, L502.0250, L503.0106, L500.4050, L503.6030, L503.6550 #### [facility] [address] [place], [address] RBC (Bld) [#/Vol] 3.34 10*6/uL Low 4.2-5.4 [facility] Comment on above: Performed By: #### L 100.0100, L501.9520, L502.0250, L503.0106, L500.4050, L503.6030, L503.6550 #### [facility] [address] [place], [address] RDW SD 45.2 fl High 35.1-43.9 [facility] Comment on above: Performed By: #### L 100.0100, L501.9520, L502.0250, L503.0106, L500.4050, L503.6030, L503.6550 #### [facility] [address] [place], [address] WBC (Bld) [#/Vol] 7.1 10*3/uL Normal 4.4-11.0 [facility] Comment on above: Performed By: #### L 100.0100, L501.9520, L502.0250, L503.0106, L500.4050, L503.6030, L503.6550 #### [facility] [address] [place], [address] Carbon dioxide, total [Moles /volume] in Central venous bloodOrdered By: Desiree Tapia on 10-04-2024 CO2 [Moles/Vol] 20.1 mmol/L Low 21.0-32.0 [facility] Chloride assayOrdered By: Lasha Tapia on 10-04-2024 Chloride [Moles/Vol] 107 mmol/L 98-108 [facility] Comprehensive Metabolic Prof ilon 10-04-2024 Albumin [Mass/Vol] 3.9 g/dL Normal 3.4-4.8 [facility] Comment on above: Performed By: #### L 100.0100, L501.9520, L502.0250, L503.0106, L500.4050, L503.6030, L503.6550 #### [facility] [address] [place], [address] Albumin/Globulin [Mass ratio] 1.1 {ratio} Normal 0.9-2.4 [facility] Comment on above: Performed By: #### L 100.0100, L501.9520, L502.0250, L503.0106, L500.4050, L503.6030, L503.6550 #### [facility] [address] [place], [address] ALK PHOS 122 U/L High 35-104 [facility] Comment on above: Performed By: #### L 100.0100, L501.9520, L502.0250, L503.0106, L500.4050, L503.6030, L503.6550 #### [facility] [address] [place], [address] ALT [Catalytic activity/Vol] 21 U/L Normal <=34 [facility] Comment on above: Performed By: #### L 100.0100, L501.9520, L502.0250, L503.0106, L500.4050, L503.6030, L503.6550 #### [facility] [address] [place], [address] AST [Catalytic activity/Vol] 29 U/L Normal <=31 [facility] Comment on above: Performed By: #### L 100.0100, L501.9520, L502.0250, L503.0106, L500.4050, L503.6030, L503.6550 #### [facility] [address] [place], [address] Bilirubin [Mass/Vol] 0.70 mg/dL Normal 0.00-1.30 [facility] Comment on above: Performed By: #### L 100.0100, L501.9520, L502.0250, L503.0106, L500.4050, L503.6030, L503.6550 #### [facility] [address] [place], [address] BUN/CRE 13.8 RATIO Normal 10-20 [facility] Comment on above: Performed By: #### L 100.0100, L501.9520, L502.0250, L503.0106, L500.4050, L503.6030, L503.6550 #### [facility] [address] [place], [address] Calcium [Mass/Vol] 8.9 mg/dL Normal 7.6-11.0 [facility] Comment on above: Performed By: #### L 100.0100, L501.9520, L502.0250, L503.0106, L500.4050, L503.6030, L503.6550 #### [facility] [address] [place], [address] Chloride [Moles/Vol] 107 mmol/L Normal 98-108 [facility] Comment on above: Performed By: #### L 100.0100, L501.9520, L502.0250, L503.0106, L500.4050, L503.6030, L503.6550 #### [facility] [address] [place], [address] CO2 [Moles/Vol] 20.1 mmol/L Low 21.0-32.0 [facility] Comment on above: Performed By: #### L 100.0100, L501.9520, L502.0250, L503.0106, L500.4050, L503.6030, L503.6550 #### [facility] [address] [place], [address] Creatinine [Mass/Vol] 1.29 mg/dL High 0.70-1.20 [facility] Comment on above: Performed By: #### L 100.0100, L501.9520, L502.0250, L503.0106, L500.4050, L503.6030, L503.6550 #### [facility] [address] [place], [address] GAP 15 Normal 5-15 [facility] Comment on above: Performed By: #### L 100.0100, L501.9520, L502.0250, L503.0106, L500.4050, L503.6030, L503.6550 #### [facility] [address] [place], [address] GFR/1.73 sq M.predicted among non-blacks MDRD (S/P/Bld) [Vol rate/Area] 42 mL/min/{1.73_m2} Low >60 [facility] Comment on above: Result Comment: mL/m in/1.73m2 CKD-EPI Creatinine Equation (2020) Performed By: #### L 100.0100, L501.9520, L502.0250, L503.0106, L500.4050, L503.6030, L503.6550 #### [facility] [address] [place], [address] Globulin (S) [Mass/Vol] 3.6 g/dL Normal 2.2-4.2 [facility] Comment on above: Performed By: #### L 100.0100, L501.9520, L502.0250, L503.0106, L500.4050, L503.6030, L503.6550 #### [facility] [address] [place], [address] Glucose [Mass/Vol] 173 mg/dL High 70-99 [facility] Comment on above: Performed By: #### L 100.0100, L501.9520, L502.0250, L503.0106, L500.4050, L503.6030, L503.6550 #### [facility] [address] [place], [address] Potassium [Moles/Vol] 4.1 mmol/L Normal 3.3-5.1 [facility] Comment on above: Performed By: #### L 100.0100, L501.9520, L502.0250, L503.0106, L500.4050, L503.6030, L503.6550 #### [facility] [address] [place], [address] Sodium [Moles/Vol] 142 mmol/L Normal 133-145 [facility] Comment on above: Performed By: #### L 100.0100, L501.9520, L502.0250, L503.0106, L500.4050, L503.6030, L503.6550 #### [facility] [address] [place], [address] T PROT 7.5 g/dL Normal 5.9-8.4 [facility] Comment on above: Performed By: #### L 100.0100, L501.9520, L502.0250, L503.0106, L500.4050, L503.6030, L503.6550 #### [facility] [address] [facility] [place], [address] Urea nitrogen [Mass/Vol] 18 mg/dL Normal 4-19 [facility] Comment on above: Performed By: #### L 100.0100, L501.9520, L502.0250, L503.0106, L500.4050, L503.6030, L503.6550 #### [facility] [address] [facility] [place], [address] Eosinophil percentageOrdered By: Desiree Tapia on 10-04-2024 Eosinophils/100 WBC (Bld) 2.1 % 0-5 [facility] Erythrocyte distribution wid th ratioOrdered By: Desiree Tapia on 10-04-2024 Erythrocyte distribution width (RBC) [Ratio] 14.9 % High 11.6-14.6 [facility] Erythrocyte distribution wid th standard deviationOrdered By: Desiree Tapia on 10-04-2024 Erythrocyte distribution width (RBC) [Ratio] 45.2 fl High 35.1-43.9 [facility] Ferritinon 10-04-2024 Ferritin [Mass/Vol] 14 ng/mL Low 22-378 [facility] Comment on above: Performed By: #### L 100.0100, L501.9520, L502.0250, L503.0106, L500.4050, L503.6030, L503.6550 #### [facility] [address] [place], [address] Glomerular filtration rate ( GFR) estimation/1.73 sq m using serum, plasma, or whole bOrdered By: Desiree Tapia on 10-04-2024 GFR/1.73 sq M.predicted among non-blacks MDRD (S/P/Bld) [Vol rate/Area] 42 mL/min/{1.73_m2} Low >60 [facility] Comment on above: mL/min/1.73m2 CKD-EP I Creatinine Equation (2020) Hematocrit Auto (Bld) [Volum e fraction]Ordered By: Desiree Tapia on 10-04-2024 Hematocrit (Bld) [Volume fraction] 28.0 % Low 37-47 [facility] Hemoglobin measurementOrdere d By: Desiree Tapia on 10-04-2024 Hemoglobin (Bld) [Mass/Vol] 8.3 g/dL Low 12.0-15.0 [facility] Immature granulocytes/100 WB C Auto (Bld)Ordered By: Desiree Tapia on 10-04-2024 Immature granulocytes/100 WBC (Bld) 1.600 % High 0.0-0.9 [facility] Comment on above: IG% - Immature Granu locytes (promyelocytes, myelocytes and metamyelocytes) > 1% indicates that a LEFT SHIFT is Present. Iron measurement (mass/mass) Ordered By: Desiree Tapia on 10-04-2024 Iron (Unsp spec) [Mass/Mass] 29 ug/dL Low 50-170 [facility] Iron+Iron Binding Capacityon 10-04-2024 Iron [Mass/Vol] 29 ug/dL Low 50-170 [facility] Comment on above: Performed By: #### L 100.0100, L501.9520, L502.0250, L503.0106, L500.4050, L503.6030, L503.6550 #### [facility] [address] [place], [address] IRON SATURATION 7.0 Low 13-59 [facility] Comment on above: Performed By: #### L 100.0100, L501.9520, L502.0250, L503.0106, L500.4050, L503.6030, L503.6550 #### [facility] [address] [place], [address] TIBC 406 ug/dL Normal 250-450 [facility] Comment on above: Performed By: #### L 100.0100, L501.9520, L502.0250, L503.0106, L500.4050, L503.6030, L503.6550 #### [facility] [address] [place], [address] UIBC 377 ug/dL Normal 228-428 [facility] Comment on above: Performed By: #### L 100.0100, L501.9520, L502.0250, L503.0106, L500.4050, L503.6030, L503.6550 #### [facility] [address] [place], [address] Laboratory - Chemistry and C hemistry - challengeOrdered By: Desiree Tapia on 10-04-2024 AST [Catalytic activity/Vol] 29 U/L <32 [facility] MCV (mean corpuscular volume ) determinationOrdered By: Desiree Tapia on 10-04-2024 MCV (RBC) [Entitic vol] 83.8 fL 81-99 [facility] Mean corpuscular hemoglobin (MCH) determinationOrdered By: Desiree Tapia on 10-04-2024 MCH (RBC) [Entitic mass] 24.9 pg Low 27.0-32.0 [facility] Mean corpuscular hemoglobin concentration (MCHC) determinationOrdered By: Desiree Tapia on 10-04-2024 MCHC (RBC) [Mass/Vol] 29.6 g/dL Low 32-36 [facility] Mean platelet volume determi nationOrdered By: Desiree Tapia on 10-04-2024 Platelet mean volume (Bld) [Entitic vol] 11.9 fL 6.2-12.0 [facility] Microalb:Creat Ratio,Random URon 10-04-2024 MALB:CREAT 327.0 mg/g CRE High <30 mg/g CRE [facility] Comment on above: Performed By: #### L 100.0100, L501.9520, L502.0250, L503.0106, L500.4050, L503.6030, L503.6550 #### [facility] [address] [place], [address] MICROALBUMIN,UR 533.0 mg/L Normal <20 mg/L [facility] Comment on above: Performed By: #### L 100.0100, L501.9520, L502.0250, L503.0106, L500.4050, L503.6030, L503.6550 #### [facility] [address] [place], [address] Monocyte percentageOrdered B y: Desiree Tapia on 10-04-2024 Monocytes/100 WBC (Bld) 7.8 % 0-10 [facility] Neutrophil percentageOrdered By: Desiree Tapia on 10-04-2024 Neutrophils/100 WBC (Bld) 75.8 % High 47-70 [facility] No Panel InformationOrdered By: Desiree Tapia on 10-04-2024 Unsaturated Iron Binding Capacity 377 ug/dL 228-428 [facility] Nucleated red blood cell per centageOrdered By: Desiree Tapia on 10-04-2024 Nucleated RBC/100 WBC (Bld) [Ratio] 0 % 0-5 [facility] Platelet countOrdered By: Lasha Tapia on 10-04-2024 Platelets (Bld) [#/Vol] 220 10*3/uL 150-450 [facility] Potassium measurement (mass/ volume)Ordered By: Desiree Tapia on 10-04-2024 Potassium (Unsp spec) [Mass/Vol] 4.1 mmol/L 3.3-5.1 [facility] RBC Auto (Bld) [#/Vol]Ordere d By: Desiree Tapia on 10-04-2024 RBC (Bld) [#/Vol] 3.34 10*6/uL Low 4.2-5.4 [facility] Random urine creatinine nick urement (mass/volume)Ordered By: Desiree Tapia on 10-04-2024 Creatinine Unsp time (U) [Mass/Vol] 163.00 mg/dL 28.00-217. 00 [facility] Serum creatinine measurement (mass/volume)Ordered By: Desiree Tapia on 10-04-2024 Creatinine [Mass/Vol] 1.29 mg/dL High 0.70-1.20 [facility] Serum globulin measurementOr dered By: Desiree Tapia on 10-04-2024 Globulin (S) [Mass/Vol] 3.6 g/dL 2.2-4.2 [facility] Serum glucose measurement (m ass/volume)Ordered By: Desiree Tapia on 10-04-2024 Glucose [Mass/Vol] 173 mg/dL High 70-99 [facility] Serum or plasma alanine mao otransferase (ALT) measurementOrdered By: Desiree Tapia on 10-04-2024 ALT [Catalytic activity/Vol] 21 U/L <35 [facility] Serum or plasma albumin nick urement (mass/volume)Ordered By: Desiree Tapia on 10-04-2024 Albumin [Mass/Vol] 3.9 g/dL 3.4-4.8 [facility] Serum or plasma albumin/glob ulin mass ratioOrdered By: Desiree Tapia on 10-04-2024 Albumin/Globulin [Mass ratio] 1.1 {ratio} 0.9-2.4 [facility] Serum or plasma alkaline kathleen sphatase measurementOrdered By: Desiree Tapia on 10-04-2024 ALP [Catalytic activity/Vol] 122 U/L High 35-104 [facility] Serum or plasma calcium nick urement (mass/volume)Ordered By: Desiree Tapia on 10-04-2024 Calcium [Mass/Vol] 8.9 mg/dL 7.6-11.0 [facility] Serum or plasma ferritin baciloi surement (mass/volume)Ordered By: Desiree Tapia on 10-04-2024 Ferritin [Mass/Vol] 14 ng/mL Low 22-378 [facility] Serum or plasma iron saturat ion measurement (mass fraction)Ordered By: Desiree Tapia on 10-04-2024 Iron saturation [Mass fraction] 7.0 % Low 13-59 [facility] Serum or plasma urea nitroge n measurement (mass/volume)Ordered By: Desiree Tapia on 10-04-2024 Urea nitrogen [Mass/Vol] 18 mg/dL 4-19 [facility] Sodium levelOrdered By: Alvina Tapia on 10-04-2024 Sodium [Moles/Vol] 142 mmol/L 133-145 [facility] TSH DL <= 0.005 mIU/L QnOrde red By: Desiree Tapia on 10-04-2024 TSH Qn 4.760 uIU/mL High 0.300-4.20 0 [facility] Thyroid Stim Hormone (TSH)on 10-04-2024 TSH 4.760 uIU/mL High 0.300-4.20 0 [facility] Comment on above: Performed By: #### L 100.0100, L501.9520, L502.0250, L503.0106, L500.4050, L503.6030, L503.6550 #### [facility] [address] [place] [address]. [place], [place], [id number] Total proteinOrdered By: Hermes Tapia on 10-04-2024 Protein [Mass/Vol] 7.5 g/dL 5.9-8.4 [facility] Urine albumin measurement wi detection limit of 20 mg/L or less (mass/volume)Ordered By: Desiree Tapia on 10-04-2024 Albumin DL <= 20 mg/L (U) [Mass/Vol] 533.0 mg/L <20 mg/L [facility] Vitamin B12on 10-04-2024 Cobalamin (Vitamin B12) [Mass/Vol] 536 pg/mL Normal 180-914 [facility] Comment on above: Performed By: #### L 100.0100, L501.9520, L502.0250, L503.0106, L500.4050, L503.6030, L503.6550 #### [facility] [address] [place], [address] Vitamin B12 ser/plasOrdered By: Desiree Tapia on 10-04-2024 Cobalamin (Vitamin B12) [Mass/Vol] 536 pg/mL 180-914 [facility] White blood cell (WBC) count Ordered By: Desiree Tapia on 10-04-2024 WBC (Bld) [#/Vol] 7.1 10*3/uL 4.4-11.0 [facility] Modified Barium Swallow Stud yon 08-29-2024 Modified Barium Swallow Study [facility] Speech Pathology [address] [place] [address] Modified Barium Swallow Study MR#: [id number] Acct: [id number] Name: SANDIE ANGELES DAWSON Rep #: [id number] : 1945 79 From: Mandie Pham M.A., [facility] Modified Barium Swallow Patient Information Study Date: [...] in the lower esophagus w/ retrograde flow. [place] Thick Liquid via small single sip: cup: [...] esophagus. Recommendations (more content not included)... Normal [facility] Neurology Visit Reporton Neurology Visit Report [facility] [address], [address] [place] [address] OFFICE VISIT Date of Service: 06/28/24 MR#: [id number] Acct: [id number] Name: SANDIE ANGELES DAWSON Rep #: [id number] : 1945 Provider: Dr. Surendra vergara MD Age/Sex: 79/F Location: [facility]. Status: Signed HPI HPI Chief Complaint: Fatigue, [...] the eye directly. 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 She was treated with a course of [...] in the toes. She takes acetaminophen and udej-fnm-nbpiyub ibuprofen once or twice daily and this [...] however the patient did not see a cardiology consultants. Right ankle x-rays revealed mild soft tissue [...] with post (more content not included)... Normal [facility] Urgent Care Visit Reporton 0 06-28-2024 Urgent Care Visit Report [facility] [address], [address] [place] [address] OFFICE VISIT Date of Service: 06/28/24 MR#: [id number] Acct: [id number] Name: SANDIE ANGELES DAWSON Rep #: [id number] : 1945 Provider: SUZETTE Whitman Age/Sex: 79/F Location: [facility] Status: Signed Intake Vital Signs 06/28/24 13:05 [...] R EAR Chief Complaint: right ear plugged Mechanical Design Drafter Required: No Is patient in pain?: No [...] by Dr. Hidalgo for eval right ear. [facility] Medical History (Updated 06/28/24 @ 15:34 [...] in: other frequency: 1-2 times per week luna/worship: Sikh seatbelt use: always HPI HPI Chief Complaint: right ear plugged Details: SANDIE BRIDGETTE, is a 79 F who presents to the office today for right ear cerumen impaction removal as noticed by neurology. Patient notes localized tender to the same though no complaints of fever, chills, sweats, lightheadedness/dizziness, nausea/vomiting. Patient admits to using Q-tips to clean her ears frequently. No nxsb-wgq-krfojos medications taken to assist with current symptoms. No other associated symptoms and no other alleviating/aggravating factors. ROS Const Constitutional: No other (As above) Exam Const General: cooperative, healthy appearing and no acute distress Orientation: alert and awake [facility] Head: normal to inspection Ears: hearing grossly [...] of Cerumen: (more content not included)... Normal [facility] Duplex ultrasound of carotid artery reportOrdered By: Arya Argueta on 04-20-2024 Study report [facility] [address] [place] [address] Carotid Duplex Ultrasound 04/19/24 0948 MR#: [id number] Acct: [id number] Name: SANDIE ANGELES DAWSON Rep #:[id number] : 1945 78 From: Arya Brown Attending Dr: SUZETTE Cavazos Stat us: REG CLI Ordering Dr: Haley Menard Date: Location: [facility] Sex: F C Admitted: Reason For Study Reason For Study: CAROTID STENOSIS Rt. Velocities/BP Lt. Velocities/BP Prox CCA 79.9/10.0 cm/sec. Prox CCA 107.6/13.0 cm/sec. Mid CCA 75.2/11.9 cm/sec. Mid PHY383.7/14.2 cm/sec. Dist CCA 72.4/8.1 cm/sec. Dist CCA [...] the left vertebral artery. Procedure Carotid Duplex 92946. This is a Carotid Duplex examination using [...] ~ Date Dictated: 04/19/24947 Date Transcribed: 04/20/24705 Certified Personal Trainer: Signed [facility] Work Phone: Carotid Duplex Ultrasoundon 04-19-2024 Carotid Duplex Ultrasound [facility] [address] [place] [address] Carotid Duplex Ultrasound 04/19/24947 MR#: [id number] Acct: [id number] Name: SANDIE ANGELES DAWSON Rep #: [id number] : 1945 78 From: Arya Argueta MD Attending Dr: SUZETTE Cavazos Status: REG CLI Ordering Dr: Haley Menard Date: 04/19/24 Location: [facility] Sex: F C Admitted: Reason For [...] the left vertebral artery. Procedure Carotid Duplex 93760. This is a Carotid Duplex examination using [...] MD Date Dictated: 04/19/2448 Date Transcribed: 04/20/24705 Certified Personal Trainer: Signed [facility] MR/BMS.BVSon 04-19-2024 MR/BMS.S [facility] 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 Normal [facility] Absolute lymphocyte countOrd ered By: Desiree Tapia on 04-01-2024 Lymphocytes Auto (Unsp spec) [#/Vol] 0.75 10*3/uL Low 0.83-4.51 [facility] Absolute neutrophil countOrd ered By: Desiree Tapia on 04-01-2024 Neutrophils (Bld) [#/Vol] 3.8 10*3/uL 2.0-7.7 [facility] Albumin to globulin ratioOrd ered By: Desiree Tapia on 04-01-2024 Albumin/Globulin [Mass ratio] 0.7 {ratio} Low 0.9-2.4 [facility] Automated lymphocyte count a s percentage of total leukocytesOrdered By: Desiree Tapia on 04-01-2024 Lymphocytes/100 WBC Auto (Unsp spec) 14.6 % Low 19-41 [facility] Basophil percentageOrdered B y: Desiree Tapia on 04-01-2024 Basophils/100 WBC (Bld) 1.2 % High 0-1 [facility] Bilirubin, totalOrdered By: Desiree Tapia on 04-01-2024 Bilirubin [Mass/Vol] 0.50 mg/dL 0.20-1.00 [facility] Comment on above: For patients on eltr ombopag therapy, use of Dimension [place] TBIL is not recommended. Blood urea nitrogen (BUN)/cr eatinine ratioOrdered By: Desiree Tapia on 04-01-2024 Urea nitrogen/Creatinine [Mass ratio] 17.4 mg/mg 11-28 [facility] CBC W/Diff, Automatedon 03-13 Absolute Lymph 0.75 X10 3/uL Low 0.83-4.51 [facility] Comment on above: Performed By: #### L 100.0100, L501.9520, L502.0250, L503.0106, L500.4050, L503.6030, L503.6550 #### [facility] [address] [place], [address] Absolute Neut 3.8 X10 3/uL Normal 2.0-7.7 [facility] Comment on above: Performed By: #### L 100.0100, L501.9520, L502.0250, L503.0106, L500.4050, L503.6030, L503.6550 #### [facility] [address] [place], [address] Basophils/100 WBC (Bld) 1.2 % High 0-1 [facility] Comment on above: Performed By: #### L 100.0100, L501.9520, L502.0250, L503.0106, L500.4050, L503.6030, L503.6550 #### [facility] [address] [place], [address] Eosinophils/100 WBC (Bld) 2.7 % Normal 0-5 [facility] Comment on above: Performed By: #### L 100.0100, L501.9520, L502.0250, L503.0106, L500.4050, L503.6030, L503.6550 #### [facility] [address] [place], [address] Erythrocyte distribution width (RBC) [Ratio] 14.0 % Normal 11.6-14.6 [facility] Comment on above: Performed By: #### L 100.0100, L501.9520, L502.0250, L503.0106, L500.4050, L503.6030, L503.6550 #### [facility] [address] [place], [address] Hematocrit (Bld) [Volume fraction] 38.4 % Normal 37-47 [facility] Comment on above: Performed By: #### L 100.0100, L501.9520, L502.0250, L503.0106, L500.4050, L503.6030, L503.6550 #### [facility] [address] [place], [address] Hemoglobin (Bld) [Mass/Vol] 12.5 g/dL Normal 12.0-15.0 [facility] Comment on above: Performed By: #### L 100.0100, L501.9520, L502.0250, L503.0106, L500.4050, L503.6030, L503.6550 #### [facility] [address] [place], [address] IG% 0.200 Normal 0.0-0.9 [facility] Comment on above: Result Comment: IG% - Immature Granulocytes (promyelocytes, myelocytes and metamyelocytes) > 1% indicates that a LEFT SHIFT is Present. Performed By: #### L 100.0100, L501.9520, L502.0250, L503.0106, L500.4050, L503.6030, L503.6550 #### [facility] [address] [place], [address] Lymphocytes/100 WBC (Bld) 14.6 % Low 19-41 [facility] Comment on above: Performed By: #### L 100.0100, L501.9520, L502.0250, L503.0106, L500.4050, L503.6030, L503.6550 #### [facility] [address] [place], [address] MCH (RBC) [Entitic mass] 30.6 pg Normal 27.0-32.0 [facility] Comment on above: Performed By: #### L 100.0100, L501.9520, L502.0250, L503.0106, L500.4050, L503.6030, L503.6550 #### [facility] [address] [place], [address] MCHC (RBC) [Mass/Vol] 32.6 g/dL Normal 32-36 [facility] Comment on above: Performed By: #### L 100.0100, L501.9520, L502.0250, L503.0106, L500.4050, L503.6030, L503.6550 #### [facility] [address] [place], [address] MCV (RBC) [Entitic vol] 94.1 fL Normal 81-99 [facility] Comment on above: Performed By: #### L 100.0100, L501.9520, L502.0250, L503.0106, L500.4050, L503.6030, L503.6550 #### [facility] [address] [place], [address] Monocytes/100 WBC (Bld) 7.0 % Normal 0-10 [facility] Comment on above: Performed By: #### L 100.0100, L501.9520, L502.0250, L503.0106, L500.4050, L503.6030, L503.6550 #### [facility] [address] [place], [address] Neutrophils/100 WBC (Bld) 74.3 % High 47-70 [facility] Comment on above: Performed By: #### L 100.0100, L501.9520, L502.0250, L503.0106, L500.4050, L503.6030, L503.6550 #### [facility] [address] [place], [address] Nucleated RBC (Bld) [#/Vol] 0 10*3/uL Normal 0-5 [facility] Comment on above: Performed By: #### L 100.0100, L501.9520, L502.0250, L503.0106, L500.4050, L503.6030, L503.6550 #### [facility] [address] [place], [address] Platelet mean volume (Bld) [Entitic vol] 11.8 fL Normal 6.2-12.0 [facility] Comment on above: Performed By: #### L 100.0100, L501.9520, L502.0250, L503.0106, L500.4050, L503.6030, L503.6550 #### [facility] [address] [place], [address] Platelets (Bld) [#/Vol] 148 10*3/uL Low 150-450 [facility] Comment on above: Performed By: #### L 100.0100, L501.9520, L502.0250, L503.0106, L500.4050, L503.6030, L503.6550 #### [facility] [address] [place], [address] RBC (Bld) [#/Vol] 4.08 10*6/uL Low 4.2-5.4 [facility] Comment on above: Performed By: #### L 100.0100, L501.9520, L502.0250, L503.0106, L500.4050, L503.6030, L503.6550 #### [facility] [address] [place], [address] RDW SD 48.0 fl High 35.1-43.9 [facility] Comment on above: Performed By: #### L 100.0100, L501.9520, L502.0250, L503.0106, L500.4050, L503.6030, L503.6550 #### [facility] [address] [place], [place], [phone] WBC (Bld) [#/Vol] 5.2 10*3/uL Normal 4.4-11.0 [facility] Comment on above: Performed By: #### L 100.0100, L501.9520, L502.0250, L503.0106, L500.4050, L503.6030, L503.6550 #### [facility] [address] [place], [place], [phone] Carbon dioxide measurementOr dered By: Desiree Tapia on 04-01-2024 CO2 [Moles/Vol] 25.0 mmol/L 21.0-32.0 [facility] Chloride measurementOrdered By: Desiree Tapia on 04-01-2024 Chloride [Moles/Vol] 108 mmol/L High 98-107 [facility] Comprehensive Metabolic Prof ilon 04-01-2024 Albumin [Mass/Vol] 3.3 g/dL Normal 3.2-5.0 [facility] Comment on above: Performed By: #### L 100.0100, L501.9520, L502.0250, L503.0106, L500.4050, L503.6030, L503.6550 #### [facility] [address] [place], [address] Albumin/Globulin [Mass ratio] 0.7 {ratio} Low 0.9-2.4 [facility] Comment on above: Performed By: #### L 100.0100, L501.9520, L502.0250, L503.0106, L500.4050, L503.6030, L503.6550 #### [facility] [address] [place], [address] ALK P 129 U/L High 45-117 [facility] Comment on above: Performed By: #### L 100.0100, L501.9520, L502.0250, L503.0106, L500.4050, L503.6030, L503.6550 #### [facility] [address] [place], [address] ALT [Catalytic activity/Vol] 35 U/L Normal 13-56 [facility] Comment on above: Performed By: #### L 100.0100, L501.9520, L502.0250, L503.0106, L500.4050, L503.6030, L503.6550 #### [facility] [address] [place], [address] AST [Catalytic activity/Vol] 37 U/L Normal 15-37 [facility] Comment on above: Performed By: #### L 100.0100, L501.9520, L502.0250, L503.0106, L500.4050, L503.6030, L503.6550 #### [facility] [address] [place], [address] Bilirubin [Mass/Vol] 0.50 mg/dL Normal 0.20-1.00 [facility] Comment on above: Result Comment: For patients on eltrombopag therapy, use of Dimension [place] TBIL is not recommended. Performed By: #### L 100.0100, L501.9520, L502.0250, L503.0106, L500.4050, L503.6030, L503.6550 #### [facility] [address] [place], [address] BUN/CRE 17.4 RATIO Normal 10-20 [facility] Comment on above: Performed By: #### L 100.0100, L501.9520, L502.0250, L503.0106, L500.4050, L503.6030, L503.6550 #### [facility] [address] [place], [address] CA,Total 9.4 mg/dL Normal 8.5-10.1 [facility] Comment on above: Performed By: #### L 100.0100, L501.9520, L502.0250, L503.0106, L500.4050, L503.6030, L503.6550 #### [facility] [address] [place], [address] Chloride [Moles/Vol] 108 mmol/L High 98-107 [facility] Comment on above: Performed By: #### L 100.0100, L501.9520, L502.0250, L503.0106, L500.4050, L503.6030, L503.6550 #### [facility] [address] [place], [address] CO2 [Moles/Vol] 25.0 mmol/L Normal 21.0-32.0 [facility] Comment on above: Performed By: #### L 100.0100, L501.9520, L502.0250, L503.0106, L500.4050, L503.6030, L503.6550 #### [facility] [address] [place], [address] Creatinine [Mass/Vol] 1.32 mg/dL High 0.55-1.02 [facility] Comment on above: Result Comment: The validity of the calculated GFR GFRAA in patients over 70 years has not been determined. Clinical correlation is essential. Performed By: #### L 100.0100, L501.9520, L502.0250, L503.0106, L500.4050, L503.6030, L503.6550 #### [facility] [address] [place], [address] EST GFR - AA 50 mL/min Low >60 [facility] Comment on above: Result Comment: Afri can Bel[place]ian GFR Calc Performed By: #### L 100.0100, L501.9520, L502.0250, L503.0106, L500.4050, L503.6030, L503.6550 #### [facility] [address] [place], [place], [phone] GAP 6 Normal 5-15 [facility] Comment on above: Performed By: #### L 100.0100, L501.9520, L502.0250, L503.0106, L500.4050, L503.6030, L503.6550 #### [facility] [address] [place], [place], [phone] (531) GFR/1.73 sq M.predicted among non-blacks MDRD (S/P/Bld) [Vol rate/Area] 41 mL/min/{1.73_m2} Low >60 [facility] Comment on above: Result Comment: Non- GFR Calc Performed By: #### L 100.0100, L501.9520, L502.0250, L503.0106, L500.4050, L503.6030, L503.6550 #### [facility] [address] [place], [place], [phone] ([phone]) Globulin (S) [Mass/Vol] 4.7 g/dL High 2.2-4.2 [facility] Comment on above: Performed By: #### L 100.0100, L501.9520, L502.0250, L503.0106, L500.4050, L503.6030, L503.6550 #### [facility] [address] [place], [address] Glucose [Mass/Vol] 163 mg/dL High 74-106 [facility] Comment on above: Result Comment: Fast ing Glucose result greater than or equal to 126 mg/dL suggests DIABETES MELLITUS per A.D.A. criteria. Performed By: #### L 100.0100, L501.9520, L502.0250, L503.0106, L500.4050, L503.6030, L503.6550 #### [facility] [address] [place], [address] Potassium [Moles/Vol] 4.5 mmol/L Normal 3.5-5.1 [facility] Comment on above: Performed By: #### L 100.0100, L501.9520, L502.0250, L503.0106, L500.4050, L503.6030, L503.6550 #### [facility] [address] [place], [address] Sodium [Moles/Vol] 140 mmol/L Normal 136-145 [facility] Comment on above: Performed By: #### L 100.0100, L501.9520, L502.0250, L503.0106, L500.4050, L503.6030, L503.6550 #### [facility] [address] [place] [place], [address] T PROT 8.0 g/dL Normal 6.4-8.2 [facility] Comment on above: Performed By: #### L 100.0100, L501.9520, L502.0250, L503.0106, L500.4050, L503.6030, L503.6550 #### [facility] [address] [place], [address] Urea nitrogen [Mass/Vol] 23 mg/dL High 7-18 [facility] Comment on above: Performed By: #### L 100.0100, L501.9520, L502.0250, L503.0106, L500.4050, L503.6030, L503.6550 #### [facility] [address] [place], [place], [id number] Eosinophil percentageOrdered By: Desiree Tapia on 04-01-2024 Eosinophils/100 WBC (Bld) 2.7 % 0-5 [facility] Erythrocyte distribution wid th ratioOrdered By: Desiree Tapia on 04-01-2024 Erythrocyte distribution width (RBC) [Ratio] 14.0 % 11.6-14.6 [facility] Erythrocyte distribution wid th standard deviationOrdered By: Desiree Tapia on 04-01-2024 Erythrocyte distribution width (RBC) [Entitic vol] 48.0 fL High 35.1-43.9 [facility] Erythrocyte distribution width (RBC) [Ratio] 48.0 fl High 35.1-43.9 [facility] Estimated glomerular filtrat ion rate (GFR) AmericanOrdered By: Desiree Tapia on 04-01-2024 Estimated GFR (MDRD) Amer 50 mL/min Low >60 [facility] Comment on above: GFR Calc Ferritinon 04-01-2024 Ferritin [Mass/Vol] 34 ng/mL Normal [facility] Comment on above: Performed By: #### L 100.0100, L501.9520, L502.0250, L503.0106, L500.4050, L503.6030, L503.6550 #### [facility] [address] [place], [place], [id number] Ferritin measurementOrdered By: Desiree Tapia on 04-01-2024 Ferritin [Mass/Vol] 34 ng/mL [facility] Glomerular filtration rate ( GFR) estimationOrdered By: Desiree Tapia on 04-01-2024 Estimated GFR (MDRD) Non-Af Amer 41 mL/min Low >60 [facility] Comment on above: Non- GFR Calc GFR/1.73 sq M.predicted among non-blacks MDRD (S/P/Bld) [Vol rate/Area] 41 mL/min/{1.73_m2} Low >60 [facility] Comment on above: Non- GFR Calc Glucose measurementOrdered B y: Desiree Tapia on 04-01-2024 Glucose [Mass/Vol] 163 mg/dL High 74-106 [facility] Comment on above: Fasting Glucose resu lt greater than or equal to 126 mg/dL suggests DIABETES MELLITUS per A.D.A. criteria. Hematocrit Auto (Bld) [Volum e fraction]Ordered By: Desiree Tapia on 04-01-2024 Hematocrit (Bld) [Volume fraction] 38.4 % 37-47 [facility] Hemoglobin measurementOrdere d By: Desiree Tapia on 04-01-2024 Hemoglobin (Bld) [Mass/Vol] 12.5 g/dL 12.0-15.0 [facility] Immature granulocytes/100 WB C Auto (Bld)Ordered By: Desiree Tapia on 04-01-2024 Immature granulocytes/100 WBC (Bld) 0.200 % 0.0-0.9 [facility] Comment on above: IG% - Immature Granu locytes (promyelocytes, myelocytes and metamyelocytes) > 1% indicates that a LEFT SHIFT is Present. Iron (Unsp spec) [Mass/Mass] Ordered By: Desiree Tapia on 04-01-2024 Iron [Mass/Vol] 53 ug/dL 50-170 [facility] Iron measurement (mass/mass) Ordered By: Desiree Tapia on 04-01-2024 Iron (Unsp spec) [Mass/Mass] 53 ug/dL 50-170 [facility] Iron saturation [Mass fracti on]Ordered By: Desiree Tapia on 04-01-2024 Iron Saturation 15.2 % 15.0-55.0 [facility] Iron+Iron Binding Capacityon 04-01-2024 Iron [Mass/Vol] 53 ug/dL Normal 50-170 [facility] Comment on above: Performed By: #### L 100.0100, L501.9520, L502.0250, L503.0106, L500.4050, L503.6030, L503.6550 #### [facility] [address] [place], [place], [id number] IRON SATURATION 15.2 Normal 15.0-55.0 [facility] Comment on above: Performed By: #### L 100.0100, L501.9520, L502.0250, L503.0106, L500.4050, L503.6030, L503.6550 #### [facility] [address] [place], [place], [id number] TIBC 348 ug/dL Normal 250-450 [facility] Comment on above: Performed By: #### L 100.0100, L501.9520, L502.0250, L503.0106, L500.4050, L503.6030, L503.6550 #### [facility] [address] [place], [place], [id number] Laboratory - Chemistry and C hemistry - challengeOrdered By: Desiree Tapia on 04-01-2024 AST [Catalytic activity/Vol] 37 U/L 15-37 [facility] Lymphocytes Auto (Unsp spec) [#/Vol]Ordered By: Desiree Tapia on 04-01-2024 Lymphocytes (Bld) [#/Vol] 0.75 10*3/uL Low 0.83-4.51 [facility] Lymphocytes/100 WBC Auto (Un sp spec)Ordered By: Desiree Tapia on 04-01-2024 Lymphocytes/100 WBC (Bld) 14.6 % Low 19-41 [facility] MCV (mean corpuscular volume ) determinationOrdered By: Desiree Tapia on 04-01-2024 MCV (RBC) [Entitic vol] 94.1 fL 81-99 [facility] Mean corpuscular hemoglobin (MCH) determinationOrdered By: Desiree Tapia on 04-01-2024 MCH (RBC) [Entitic mass] 30.6 pg 27.0-32.0 [facility] Mean corpuscular hemoglobin concentration (MCHC) determinationOrdered By: Desiree Tapia on 04-01-2024 MCHC (RBC) [Mass/Vol] 32.6 g/dL 32-36 [facility] Mean platelet volume determi nationOrdered By: Desiree Tapia on 04-01-2024 Platelet mean volume (Bld) [Entitic vol] 11.8 fL 6.2-12.0 [facility] Monocyte percentageOrdered B y: Desiree Tapia on 04-01-2024 Monocytes/100 WBC (Bld) 7.0 % 0-10 [facility] Neutrophil percentageOrdered By: Desiree Tapia on 04-01-2024 Neutrophils/100 WBC (Bld) 74.3 % High 47-70 [facility] Nucleated red blood cell per centageOrdered By: Desiree Tapia on 04-01-2024 Nucleated RBC/100 WBC (Bld) [Ratio] 0 % 0-5 [facility] Platelet countOrdered By: Lasha Tapia on 04-01-2024 Platelets (Bld) [#/Vol] 148 10*3/uL Low 150-450 [facility] Potassium measurementOrdered By: Desiree Tapia on 04-01-2024 Potassium [Moles/Vol] 4.5 mmol/L 3.5-5.1 [facility] RBC Auto (Bld) [#/Vol]Ordere d By: Desiree Tapia on 04-01-2024 RBC (Bld) [#/Vol] 4.08 10*6/uL Low 4.2-5.4 [facility] Serum anion gap measurementO rdered By: Desiree Tapia on 04-01-2024 Anion gap [Moles/Vol] 6 mmol/L 5-15 [facility] Serum globulin measurementOr dered By: Desiree Tapia on 04-01-2024 Globulin (S) [Mass/Vol] 4.7 g/dL High 2.2-4.2 [facility] Serum or plasma alanine mao otransferase (ALT) measurementOrdered By: Desiree Tapia on 04-01-2024 ALT [Catalytic activity/Vol] 35 U/L 13-56 [facility] Serum or plasma albumin nick urement (mass/volume)Ordered By: Desiree Tapia on 04-01-2024 Albumin [Mass/Vol] 3.3 g/dL 3.2-5.0 [facility] Serum or plasma alkaline kathleen sphatase measurementOrdered By: Desiree Tapia on 04-01-2024 ALP [Catalytic activity/Vol] 129 U/L High 45-117 [facility] Serum or plasma calcium nick urement (mass/volume)Ordered By: Desiree Tapia on 04-01-2024 Calcium [Mass/Vol] 9.4 mg/dL 8.5-10.1 [facility] Serum or plasma creatinine m easurement (mass/volume)Ordered By: Desiree Tapia on 04-01-2024 Creatinine [Mass/Vol] 1.32 mg/dL High 0.55-1.02 [facility] Comment on above: The validity of the calculated GFR & GFRAA in patients over 70 years has not been determined. Clinical correlation is essential. Serum or plasma iron saturat ion measurement (mass fraction)Ordered By: Desiree Tapia on 04-01-2024 Iron saturation [Mass fraction] 15.2 % 15.0-55.0 [facility] Serum or plasma thyroid stim ulating hormone (TSH) measurement (units/volume)Ordered By: Desiree Tapia on 04-01-2024 TSH Qn 3.250 uIU/mL 0.358-3.74 0 [facility] Serum or plasma urea nitroge n measurement (mass/volume)Ordered By: Desiree Tapia on 04-01-2024 Urea nitrogen [Mass/Vol] 23 mg/dL High 7-18 [facility] Sodium levelOrdered By: Alvina Tapia on 04-01-2024 Sodium [Moles/Vol] 140 mmol/L 136-145 [facility] TIBCOrdered By: Desiree harvey on 04-01-2024 Total Iron Binding Capacity 348 ug/dL 250-450 [facility] TSH QnOrdered By: Desiree uribe on 04-01-2024 Thyroid Stimulating Hormone (TSH) 3.250 uIU/mL 0.358-3.74 0 [facility] Thyroid Stim Hormone (TSH)on 04-01-2024 TSH 3.250 uIU/mL Normal 0.358-3.74 0 [facility] Comment on above: Performed By: #### L 100.0100, L501.9520, L502.0250, L503.0106, L500.4050, L503.6030, L503.6550 #### [facility] [address] [place], [place], [address] Total proteinOrdered By: Hermes Tapia on 04-01-2024 Protein [Mass/Vol] 8.0 g/dL 6.4-8.2 [facility] Vitamin B12on 04-01-2024 Cobalamin (Vitamin B12) [Mass/Vol] 550 pg/mL Normal 211-911 [facility] Comment on above: Performed By: #### L 100.0100, L501.9520, L502.0250, L503.0106, L500.4050, L503.6030, L503.6550 #### [facility] [address] [place], [place], [id number] Vitamin B12 measurementOrder ed By: Desiree Tapia on 04-01-2024 Cobalamin (Vitamin B12) [Mass/Vol] 550 pg/mL 211-911 [facility] White blood cell (WBC) count Ordered By: Desiree Tapia on 04-01-2024 WBC (Bld) [#/Vol] 5.2 10*3/uL 4.4-11.0 [facility] Neurology Visit Reporton Neurology Visit Report [facility] [address] [facility], [address] [place], [place] [id number] OFFICE VISIT Date of Service: 03/22/24 MR#: [id number] Acct: [id number] Name: SANDIE ANGELES DAWSON Rep #: [id number] : 1945 Provider: Dr. Surendra vergara MD Age/Sex: 78/F Location: [facility]. Status: Signed HPI HPI Chief Complaint: Fatigue, [...] the eye directly. 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 She was treated with a course of [...] in the toes. She takes acetaminophen and ladw-tby-gmruuhx ibuprofen once or twice daily and this [...] however the patient did not see a cardiology consultants. Right ankle x-rays revealed mild soft tissue [...] her martin (more content not included)... Normal [facility] Urine Cultureon 01-13-2024 [facility] Klebsiella pneumonia e sp pneum [place] Count >100,000 Klebsiella pneumoniae sp pneum: REACTION [...] TMP SMX Islt BRISSA <=20 S Normal [facility] Comment on above: Performed By: #### L 100.0100, L501.9520, L502.0250, L503.0106, L500.4050, L503.6030, L503.6550 #### [facility] [address] [place], [address] Urine cultureOrdered By: Hermes Tapia on 01-11-2024 Bacteria identified Cx Nom (U) Klebsiella pneumoniae sp pneum Abnormal [facility] Bacteria identified Cx Nom (U) Klebsiella pneumoniae sp pneum Abnormal [facility] Bedside Glucoseon 01-04-2024 FINGERSTICK GLU 99 mg/dL Normal 74-106 [facility] Comment on above: Result Comment: TORY HANDENT OF PATIENT CARE PER NURSING PROTOCOL Performed By: #### L 100.0100, L501.9520, L502.0250, L503.0106, L500.4050, L503.6030, L503.6550 #### [facility] [address] [place], [address] EGD Reporton 01-04-2024 EGD Report [facility] Medical Records Department [address] [place] [address] EGD Report MR#: [id number] Acct: [id number] Name: SANDIE ANGELES DAWSON Rep #: [id number] : 1945 78 From: Moyisidro Ramos DO PCP: Dr. Desiree Tapia MD Status:[facility] Patient Name: Sandie Angeles Procedure Date: [...] 12 weeks. Procedure Code(s): --- Professional --- 15510, 59, Esophagogastroduodenoscopy, flexible, transoral; with control of bleeding, any method 23707, 51, Esophagogastroduodenoscopy, flexible, transoral; with biopsy, single or multiple CPT copyright 2021 [employer]. All rights reserved. The codes documented in this report are preliminary and upon yard rigger review may be revised to meet current compliance requirements. Moy Ramos, 01/04/2024 8:3 (more content not included)... Normal [facility] By: Moy Ramos on 01-04-2024 Bedside Glucose (Misc Panel) 99 mg/dL 74-106 [facility] Comment on above: MANAGEMENT OF PATIEN T CARE PER NURSING PROTOCOL H Pylori (initial)on 024 H Pylori (initial) -------- -------- Patient Age/Sex Location Account Attending Physician -------- SANDIE ANGELES 78/F EN [id number] Moy Ramos DO -------- Specimen: [id number] Received: 01/04/24 Status: EDIS Babcock Num: [id number] Spec Type: IMMUNO Subm Dr: Moy Ramos DO PHYSICIAN INSTITUTION [place] [address] SPECIMEN INFORMATION: Tissue Source: B- Gastric body biopsy Clinical Info: Anemia, dysphagia Specimen Number: [id number] CPT code: 59096 METHODOLOGY: Deparaffinized sections of prefer/formalin-fixed tissue or [...] developed and their performance characteristics determined by [facility]. They may not have [...] Matt Zaman DO 01/05/24 1412 -------- Normal [facility] Comment on above: Performed By: #### L 100.0100, L501.9520, L502.0250, L503.0106, L500.4050, L503.6030, L503.6550 #### [facility] [address] [place], [address] MR/POSTOP.Lissa 01-04-2024 MR/POSTOP[facility] Medical Records Department [address] [place] [address] Anesthesia Postop Eval I 01/04/24 0832 MR#: [id number] Acct: [id number] Name: SANDIE ANGELES DAWSON Rep #: [id number] : 1945 78 From: Stanislav Altamirano PCP: Dr. Desiree Tapia MD Status:REG SDC Y Race: C Location: [place] [address] Anesthesia: Postop Eval I Current Vital Signs [...] Stanislav Chauhan Signature: Date CC: Signed Normal [facility] MR/[id number] 01-04-2024 MR/POSTOPAN2 [facility] Medical Records Department [address] [facility] [place] [address] Anesthesia Postop Eval II 01/04/24921 MR#: [id number] Acct: [id number] Name: SANDIE ANGELES Rep #: [id number] : 1945 78 From: Marcus Jo MD PCP: Dr. Desiree Tapia MD Status:[facility] Y Race: C Location: EN Anesthesia [...] Marcus Chauhan Signature: Date CC: Signed Normal [facility] Surgery Specimen Level [place] 01-04-2024 Surgery Specimen Level IV -------- Patient Age/Sex Location Account Attending Physician -------- SANDIE ANGELES 78/F EN [id number] Moy Ramos DO -------- Specimen: [id number] Received: 01/04/24 Status: EDIS Babcock Num: [id number] Spec Type: EGD BIOPSY Subm Dr: Moy Ramos, HEAD OPERATION: EGD with biopsy, hemostasis PRE-OP DIAGNOSIS: Anemia, dysphagia TISSUE SUBMITTED: A- Duodenum biopsy, B- Gastric body biopsy -------- MICROSCOPIC DIAGNOSIS A. Duodenum, biopsy: Minimal non-specific chronic inflammation. B. Gastric body, biopsy: Chronic inflammation. See comment. AM. 01/05/2024 COMMENT B. The results of immunohistochemistry for Helicobacter pylori will be reported separately ([id number]). MICROSCOPIC DESCRIPTION Slides are reviewed. GROSS DESCRIPTION [...] submitted in one cassette. AM. 01/04/2024 TC:3 [facility]:[id number] -------- Patient Age/Sex Location Account Attending Physician -------- SANDIE ANGELES 78/F EN [id number] Moy Ramos DO -------- Signed (signature on file) Dr. Matt Zaman DO 01/05/24 1410 -------- Normal [facility] Comment on above: Performed By: #### L 100.0100, L501.9520, L502.0250, L503.0106, L500.4050, L503.6030, L503.6550 #### [facility] [address] [place] [address]. [place], [address] Absolute lymphocyte countOrd ered By: Dr. Tapia on 05-20-2022 Lymphocytes Auto (Unsp spec) [#/Vol] 0.99 10*3/uL 0.83-4.51 [facility] Basophil percentageOrdered B y: Dr. Tapia on 05-20-2022 Basophils/100 WBC (Bld) 1.0 % 0-1 [facility] Chloride [Moles/Vol] 111 mmol/L 98-107 [facility] Eosinophils/100 WBC (Bld) 3.4 % 0-5 [facility] Glucose [Mass/Vol] 67 mg/dL 74-106 [facility] Neutrophils (Bld) [#/Vol] 4.3 10*3/uL 2.0-7.7 [facility] Neutrophils/100 WBC (Bld) 69.9 % 47-70 [facility] Potassium [Moles/Vol] 4.3 mmol/L 3.5-5.1 [facility] Sodium [Moles/Vol] 141 mmol/L 136-145 [facility] WBC (Bld) [#/Vol] 6.2 10*3/uL 4.4-11.0 [facility] Blood erythrocytes count (nu mber/volume)Ordered By: Dr. Tapia on 05-20-2022 RBC (Bld) [#/Vol] 3.74 10*6/uL 4.2-5.4 [facility] Blood hemoglobin measurement (mass/volume)Ordered By: Dr. Tapia on 05-20-2022 Hemoglobin (Bld) [Mass/Vol] 11.5 g/dL 12.0-15.0 [facility] Blood lymphocytes/100 leukoc ytesOrdered By: Dr. Tapia on 05-20-2022 Lymphocytes/100 WBC (Bld) 16.0 % 19-41 [facility] Blood monocytes/100 leukocyt esOrdered By: Dr. Tapia on 05-20-2022 Monocytes/100 WBC (Bld) 9.2 % 0-10 [facility] Blood platelet mean volumeOr dered By: Dr. Tapia on 05-20-2022 Platelet mean volume (Bld) [Entitic vol] 11.7 fL 6.2-12.0 [facility] Determination of erythrocyte mean corpuscular volume (MCV)Ordered By: Dr. Tapia on 05-20-2022 MCV (RBC) [Entitic vol] 97.1 fL 81-99 [facility] Hematocrit Auto (Bld) [Volum e fraction]Ordered By: Dr. Tapia on 05-20-2022 Hematocrit (Bld) [Volume fraction] 36.3 % 37-47 [facility] - Chemistry and C hemistry - challengeOrdered By: Dr. Tapia on 05-20-2022 CO2 [Moles/Vol] 20.0 mmol/L 21.0-32.0 [facility] Cobalamin (Vitamin B12) [Mass/Vol] 442 pg/mL 211-911 [facility] Urea nitrogen/Creatinine [Mass ratio] 21.3 mg/mg 10-20 [facility] - Hematology and Cell countsOrdered By: Dr. Tapia on 05-20-2022 Erythrocyte distribution width (RBC) [Entitic vol] 49.1 fL 35.1-43.9 [facility] Erythrocyte distribution width (RBC) [Ratio] 13.8 % 11.6-14.6 [facility] Immature granulocytes/100 WBC (Bld) 0.500 % 0.0-0.9 [facility] Comment on above: IG% - Immature Granu locytes (promyelocytes, myelocytes and metamyelocytes) > 1% indicates that a LEFT SHIFT is Present. MCH (RBC) [Entitic mass] 30.7 pg 27.0-32.0 [facility] Nucleated RBC/100 WBC (Bld) [Ratio] 0 % 0-5 [facility] MCHC Auto (RBC) [Mass/Vol]Or dered By: Dr. Tapia on 05-20-2022 MCHC (RBC) [Mass/Vol] 31.7 g/dL 32-36 [facility] No Panel InformationOrdered By: Dr. Tapia on 05-20-2022 Estimated GFR (MDRD) Amer 55 mL/min >60 [facility] Comment on above: GFR Calc Estimated GFR (MDRD) Non-Af Amer 45 mL/min >60 [facility] Comment on above: Non- GFR Calc Thyroid Stimulating Hormone (TSH) 5.28 uIU/mL 0.358-3.74 [facility] Platelets bldOrdered By: Dr. Tapia on 05-20-2022 Platelets (Bld) [#/Vol] 161 10*3/uL 150-450 [facility] Serum or plasma calcium nick urement (mass/volume)Ordered By: Dr. Tapia on 05-20-2022 Calcium [Mass/Vol] 8.9 mg/dL 8.5-10.1 [facility] Serum or plasma creatinine m easurement (mass/volume)Ordered By: Dr. Tapia on 05-20-2022 Creatinine [Mass/Vol] 1.22 mg/dL 0.55-1.02 [facility] Comment on above: The validity of the calculated GFR & GFRAA in patients over 70 years has not been determined. Clinical correlation is essential. Serum or plasma urea nitroge n measurement (mass/volume)Ordered By: Dr. Tapia on 05-20-2022 Urea nitrogen [Mass/Vol] 26 mg/dL 7-18 [facility] Thin prep Papanicolaou smear with manual screeningOrdered By: Dr. Tapia on 05-20-2022 Thin prep Papanicolaou smear with manual screening 10 5-15 [facility] Whole blood hemoglobin A1c/t otal hemoglobin ratio (mass fraction)Ordered By: Dr. Tapia on 05-20-2022 HbA1c (Bld) [Mass fraction] 6.4 % 3.8-5.6 [facility] Comment on above: Normal < 5.7 % Predi abetic 5.7 - 6.4 % Diabetic >or= 6.5 % Please note range changes. Basophil percentageOrdered B y: Dr. Hidalgo on 02-25-2022 Bilirubin [Mass/Vol] 0.60 mg/dL 0.20-1.00 [facility] Comment on above: For patients on eltr ombopag therapy, use of Dimension [place] TBIL is not recommended. Chloride [Moles/Vol] 113 mmol/L 98-107 [facility] Glucose [Mass/Vol] 59 mg/dL 74-106 [facility] Potassium [Moles/Vol] 4.1 mmol/L 3.5-5.1 [facility] Protein [Mass/Vol] 7.4 g/dL 6.4-8.2 [facility] Sodium [Moles/Vol] 143 mmol/L 136-145 [facility] WBC (Bld) [#/Vol] 3.9 10*3/uL 4.4-11.0 [facility] Blood erythrocytes count (nu mber/volume)Ordered By: Dr. Hidalgo on 02-25-2022 RBC (Bld) [#/Vol] 3.81 10*6/uL 4.2-5.4 [facility] Blood hemoglobin measurement (mass/volume)Ordered By: Dr. Hidalgo on 02-25-2022 Hemoglobin (Bld) [Mass/Vol] 11.6 g/dL 12.0-15.0 [facility] Blood platelet mean volumeOr dered By: Dr. Hidalgo on 02-25-2022 Platelet mean volume (Bld) [Entitic vol] 11.5 fL 6.2-12.0 [facility] Determination of erythrocyte mean corpuscular volume (MCV)Ordered By: Dr. Hidalgo on 02-25-2022 MCV (RBC) [Entitic vol] 94.5 fL 81-99 [facility] Hematocrit Auto (Bld) [Volum e fraction]Ordered By: Dr. Hidalgo on 02-25-2022 Hematocrit (Bld) [Volume fraction] 36.0 % 37-47 [facility] - Chemistry and C hemistry - challengeOrdered By: Dr. Hidalgo on 02-25-2022 ALP [Catalytic activity/Vol] 120 U/L 45-117 [facility] ALT [Catalytic activity/Vol] 37 U/L 13-56 [facility] CO2 [Moles/Vol] 24.0 mmol/L 21.0-32.0 [facility] Cobalamin (Vitamin B12) [Mass/Vol] 428 pg/mL 211-911 [facility] Globulin (S) [Mass/Vol] 4.1 g/dL 2.2-4.2 [facility] Urea nitrogen/Creatinine [Mass ratio] 15.9 mg/mg 10-20 [facility] - Hematology and Cell countsOrdered By: Dr. Hidalgo on 02-25-2022 Erythrocyte distribution width (RBC) [Entitic vol] 45.1 fL 35.1-43.9 [facility] Erythrocyte distribution width (RBC) [Ratio] 13.1 % 11.6-14.6 [facility] MCH (RBC) [Entitic mass] 30.4 pg 27.0-32.0 [facility] MCHC Auto (RBC) [Mass/Vol]Or dered By: Dr. Hidalgo on 02-25-2022 MCHC (RBC) [Mass/Vol] 32.2 g/dL 32-36 [facility] No Panel InformationOrdered By: Dr. Hidalgo on 02-25-2022 Estimated GFR (MDRD) Amer 64 mL/min >60 [facility] Comment on above: GFR Calc Estimated GFR (MDRD) Non-Af Amer 53 mL/min >60 [facility] Comment on above: Non- GFR Calc Free Lambda Light Chains, Quant 40.0 mg/L 5.7-26.3 [facility] Thyroid Stimulating Hormone (TSH) 3.78 uIU/mL 0.358-3.74 [facility] Whole Blood Vitamin B1 Level 93.0 nmol/L 66.5-200.0 [facility] Comment on above: Performed at: [address] [id number] Director: Grant Baires PhD, Phone: [phone] at: - [facility] [id number] Director: Kota Wallace MD, Phone: [phone] Platelets bldOrdered By: Dr. Hidalgo on 02-25-2022 Platelets (Bld) [#/Vol] 131 10*3/uL 150-450 [facility] Serum immunoglobulin kappa l ight chains/immunoglobulin lambda light chains mass ratioOrdered By: Dr. Hidalgo on 02-25-2022 Immunoglobulin light chains.kappa/Immunoglo bulin light chains.lambda (S) [Mass ratio] 1.75 0.26-1.65 [facility] Serum or plasma albumin nick urement (mass/volume)Ordered By: Dr. Hidalgo on 02-25-2022 Albumin [Mass/Vol] 3.3 g/dL 3.2-5.0 [facility] Serum or plasma albumin/glob ulin mass ratioOrdered By: Dr. Hidalgo on 02-25-2022 Albumin/Globulin [Mass ratio] 0.8 {ratio} 0.9-2.4 [facility] Serum or plasma calcium nick urement (mass/volume)Ordered By: Dr. Hidalgo on 02-25-2022 Calcium [Mass/Vol] 8.8 mg/dL 8.5-10.1 [facility] Serum or plasma creatinine m easurement (mass/volume)Ordered By: Dr. Hidalgo on 02-25-2022 Creatinine [Mass/Vol] 1.07 mg/dL 0.55-1.02 [facility] Comment on above: The validity of the calculated GFR & GFRAA in patients over 70 years has not been determined. Clinical correlation is essential. Serum or plasma folate measu rement (mass/volume)Ordered By: Dr. Hidalgo on 02-25-2022 Folate [Mass/Vol] 13.50 ng/mL 3.1-55.4 [facility] Serum or plasma immunoglobul in kappa light chains measurement (mass/volume)Ordered By: Dr. Hidalgo on 02-25-2022 Immunoglobulin light chains.kappa [Mass/Vol] 69.8 mg/L 3.3-19.4 [facility] Serum or plasma urea nitroge n measurement (mass/volume)Ordered By: Dr. Hidalgo on 02-25-2022 Urea nitrogen [Mass/Vol] 17 mg/dL 7-18 [facility] Thin prep Papanicolaou smear with manual screeningOrdered By: Dr. Hidalgo on 02-25-2022 Thin prep Papanicolaou smear with manual screening 35 U/L 15-37 [facility] Thin prep Papanicolaou smear with manual screening 6 5-15 [facility] Basophil percentageOrdered B y: Dr. Arceo on 01-30-2022 Bilirubin [Mass/Vol] 0.50 mg/dL 0.20-1.00 [facility] Comment on above: For patients on eltr ombopag therapy, use of Dimension [place] TBIL is not recommended. Chloride [Moles/Vol] 110 mmol/L 98-107 [facility] Glucose [Mass/Vol] 125 mg/dL 74-106 [facility] Comment on above: Fasting Glucose resu lt from 100 to 125 mg/dL suggests IMPAIRED HOMEOSTASIS per A.D.A. criteria. Potassium [Moles/Vol] 4.4 mmol/L 3.5-5.1 [facility] Protein [Mass/Vol] 8.1 g/dL 6.4-8.2 [facility] Sodium [Moles/Vol] 141 mmol/L 136-145 [facility] Erythrocyte sedimentation ra teOrdered By: Dr. Arceo on 01-30-2022 ESR (Bld) [Velocity] 31 mm/h 0-30 [facility] Laboratory - Chemistry and C hemistry - challengeOrdered By: Dr. Arceo on 01-30-2022 ALP [Catalytic activity/Vol] 116 U/L 45-117 [facility] ALT [Catalytic activity/Vol] 43 U/L 13-56 [facility] CO2 [Moles/Vol] 25.0 mmol/L 21.0-32.0 [facility] Globulin (S) [Mass/Vol] 4.7 g/dL 2.2-4.2 [facility] Urea nitrogen/Creatinine [Mass ratio] 15.9 mg/mg 10-20 [facility] No Panel InformationOrdered By: Dr. Arceo on 01-30-2022 Estimated GFR (MDRD) Amer 64 mL/min >60 [facility] Comment on above: GFR Calc Estimated GFR (MDRD) Non-Af Amer 53 mL/min >60 [facility] Comment on above: Non- GFR Calc Serum or plasma C reactive p rotein measurement (mass/volume)Ordered By: Dr. Arceo on 01-30-2022 CRP [Mass/Vol] mg/L 0.0-3.0 [facility] Comment on above: C-Reactive Protein ( CRP) provides useful information for thediagnosis, therapy and monitoring of inflammatory processesand associated diseases. For the evaluation of Relative Riskfor Cardiovascular Disease, a High Sensitivity CRP (HSCRP)should be ordered. Serum or plasma albumin nick urement (mass/volume)Ordered By: Dr. Arceo on 01-30-2022 Albumin [Mass/Vol] 3.4 g/dL 3.2-5.0 [facility] Serum or plasma albumin/glob ulin mass ratioOrdered By: Dr. Arceo on 01-30-2022 Albumin/Globulin [Mass ratio] 0.7 {ratio} 0.9-2.4 [facility] Serum or plasma calcium nick urement (mass/volume)Ordered By: Dr. Arceo on 01-30-2022 Calcium [Mass/Vol] 9.0 mg/dL 8.5-10.1 [facility] Serum or plasma creatinine m easurement (mass/volume)Ordered By: Dr. Arceo on 01-30-2022 Creatinine [Mass/Vol] 1.07 mg/dL 0.55-1.02 [facility] Comment on above: The validity of the calculated GFR & GFRAA in patients over 70 years has not been determined. Clinical correlation is essential. Serum or plasma urea nitroge n measurement (mass/volume)Ordered By: Dr. Arceo on 01-30-2022 Urea nitrogen [Mass/Vol] 17 mg/dL 7-18 [facility] Serum or plasma uric acid me asurement (mass/volume)Ordered By: Dr. Arceo on 01-30-2022 Urate [Mass/Vol] 5.9 mg/dL 2.6-6.0 [facility] Comment on above: The drugs N-Acetylcy steine and Metamizole may falsely depress this assay. Thin prep Papanicolaou smear with manual screeningOrdered By: Dr. Arceo on 01-30-2022 Thin prep Papanicolaou smear with manual screening 41 U/L 15-37 [facility] Thin prep Papanicolaou smear with manual screening 6 5-15 [facility] Basophil percentageon 2021 Cholesterol [Mass/Vol] 157 mg/dL <200 [facility] Work Phone: Comment on above: <200 mg/dL Desirable 200-240 mg/dL Borderline >240 mg/dL High Risk Triglyceride [Mass/Vol] 135 mg/dL <199 [facility] Work Phone: Comment on above: The drugs N-Acetylcy steine and Metamizole may falsely depress this assay.Serum Triglycerides Reference Interval Normal <150 mg/dL Borderline high 150 - 199 mg/dL High 200 - 499 mg/dL Very High > or = 500 mg/dL Glucose Glucometer (BldC) [M ass/Vol]on 09-10-2021 Glucose [Mass/Vol] 292 mg/dL 74-106 [facility] Work Phone: Comment on above: MANAGEMENT OF PATIEN T CARE PER NURSING PROTOCOL Serum or plasma cholesterol in HDL measurement (mass/volume)on 09-10-2021 Cholesterol in HDL [Mass/Vol] 33 mg/dL >40 [facility] Work Phone: Comment on above: The drugs N-Acetylcy steine and Metamizole may falsely depress this assay. Reference Range HDL <40 mg/dL Low HDL Cholesterol HDL >or= 60 mg/dL High HDL Cholesterol Serum or plasma cholesterol in VLDL measurement (mass/volume)on 09-10-2021 Cholesterol in VLDL [Mass/Vol] 27 mg/dL 5-40 [facility] Work Phone: Serum or plasma low density lipoprotein (LDL) cholesterol measurement (mass/volume)on 09-10-2021 Cholesterol in LDL [Mass/Vol] 97 mg/dL 0-130 [facility] Work Phone: [phone] Absolute lymphocyte counton 09-09-2021 Lymphocytes Auto (Unsp spec) [#/Vol] 0.74 10*3/uL 0.83-4.51 [facility] Work Phone: Basophil percentageon 2021 Basophils/100 WBC (Bld) 1.0 % 0-1 [facility] Work Phone: [phone] Bilirubin [Mass/Vol] 0.90 mg/dL 0.20-1.00 [facility] Work Phone: [phone] Comment on above: For patients on eltr ombopag therapy, use of Dimension [place] TBIL is not recommended. Chloride [Moles/Vol] 106 mmol/L 98-107 [facility] Work Phone: Eosinophils/100 WBC (Bld) 1.5 % 0-5 [facility] Work Phone: [phone] Glucose [Mass/Vol] 254 mg/dL 74-106 [facility] Work Phone: Comment on above: Glucose result great er than or equal to 200 mg/dLsuggests DIABETES MELLITUS per A.D.A. criteria. Neutrophils (Bld) [#/Vol] 2.9 10*3/uL 2.0-7.7 [facility] Work Phone: Neutrophils/100 WBC (Bld) 71.7 % 47-70 [facility] Work Phone: Potassium [Moles/Vol] 3.9 mmol/L 3.5-5.1 [facility] Work Phone: Protein [Mass/Vol] 7.9 g/dL 6.4-8.2 [facility] Work Phone: Sodium [Moles/Vol] 139 mmol/L 136-145 [facility] Work Phone: [phone] WBC (Bld) [#/Vol] 4.0 10*3/uL 4.4-11.0 [facility] Work Phone: Blood erythrocytes count (nu mber/volume)on 09-09-2021 RBC (Bld) [#/Vol] 4.41 10*6/uL 4.2-5.4 [facility] Work Phone: Blood hemoglobin measurement (mass/volume)on 09-09-2021 Hemoglobin (Bld) [Mass/Vol] 14.2 g/dL 12.0-15.0 [facility] Work Phone: Blood lymphocytes/100 leukoc yteson 09-09-2021 Lymphocytes/100 WBC (Bld) 18.5 % 19-41 [facility] Work Phone: Blood monocytes/100 leukocyt eson 09-09-2021 Monocytes/100 WBC (Bld) 6.5 % 0-10 [facility] Work Phone: Blood platelet mean volumeon 09-09-2021 Platelet mean volume (Bld) [Entitic vol] 11.1 fL 6.2-12.0 [facility] Work Phone: Determination of erythrocyte mean corpuscular volume (MCV)on 09-09-2021 MCV (RBC) [Entitic vol] 93.0 fL 81-99 [facility] Work Phone: Hematocrit Auto (Bld) [Volum e fraction]on 09-09-2021 Hematocrit (Bld) [Volume fraction] 41.0 % 37-47 [facility] Work Phone: INR in Blood by Coagulation assayon 09-09-2021 INR Coag (Bld) [Relative time] 1.2 {INR} [facility] Work Phone: Laboratory - Chemistry and C hemistry - challengeon 09-09-2021 ALP [Catalytic activity/Vol] 100 U/L 45-117 [facility] Work Phone: ALT [Catalytic activity/Vol] 40 U/L 13-56 [facility] Work Phone: CO2 [Moles/Vol] 24.0 mmol/L 21.0-32.0 [facility] Work Phone: Globulin (S) [Mass/Vol] 4.6 g/dL 2.2-4.2 [facility] Work Phone: Urea nitrogen/Creatinine [Mass ratio] 14.6 mg/mg 10-20 [facility] Work Phone: Laboratory - Coagulationon 0 09-09-2021 PT Coag (PPP) [Time] 14.7 s 11.7-14.9 [facility] Work Phone: Laboratory - Hematology and Cell countson 09-09-2021 Erythrocyte distribution width (RBC) [Entitic vol] 44.1 fL 35.1-43.9 [facility] Work Phone: Erythrocyte distribution width (RBC) [Ratio] 13.0 % 11.6-14.6 [facility] Work Phone: Immature granulocytes/100 WBC (Bld) 0.800 % 0.0-0.9 [facility] Work Phone: Comment on above: IG% - Immature Granu locytes (promyelocytes, myelocytes and metamyelocytes) > 1% indicates that a LEFT SHIFT is Present. MCH (RBC) [Entitic mass] 32.2 pg 27.0-32.0 [facility] Work Phone: Nucleated RBC/100 WBC (Bld) [Ratio] 0 % 0-5 [facility] Work Phone: MCHC Auto (RBC) [Mass/Vol]on 09-09-2021 MCHC (RBC) [Mass/Vol] 34.6 g/dL 32-36 [facility] Work Phone: No Panel Informationon 09-09 Troponin I High Sensitivity 8 pg/mL 3.0-54.0 [facility] Work Phone: Comment on above: Please Note: New Kelsi t Units and Gender Specific Reference Ranges. For more information see Policy Stat Procedure [place] High Sensitivity Troponin (TNIH) and attachments. Estimated Creatinine Clearance Calc 36.44 ml/min [facility] Work Phone: Estimated GFR (MDRD) Amer 72 mL/min >60 [facility] Work Phone: Comment on above: GFR Calc Estimated GFR (MDRD) Non-Af Amer 60 mL/min >60 [facility] Work Phone: Comment on above: Non- GFR Calc Troponin I High Sensitivity 7 pg/mL 3.0-54.0 [facility] Work Phone: Comment on above: Please Note: New Kelsi t Units and Gender Specific Reference Ranges. For more information see Policy Stat Procedure [place] High Sensitivity Troponin (TNIH) and attachments. Platelets bldon 09-09-2021 Platelets (Bld) [#/Vol] 128 10*3/uL 150-450 [facility] Work Phone: Serum or plasma albumin nick urement (mass/volume)on 09-09-2021 Albumin [Mass/Vol] 3.3 g/dL 3.2-5.0 [facility] Work Phone: Serum or plasma albumin/glob ulin mass ratioon 09-09-2021 Albumin/Globulin [Mass ratio] 0.7 {ratio} 0.9-2.4 [facility] Work Phone: Serum or plasma calcium nick urement (mass/volume)on 09-09-2021 Calcium [Mass/Vol] 9.0 mg/dL 8.5-10.1 [facility] Work Phone: Serum or plasma creatinine m easurement (mass/volume)on 09-09-2021 Creatinine [Mass/Vol] 0.96 mg/dL 0.55-1.02 [facility] Work Phone: Comment on above: The validity of the calculated GFR & GFRAA in patients over 70 years has not been determined. Clinical correlation is essential. Serum or plasma urea nitroge n measurement (mass/volume)on 09-09-2021 Urea nitrogen [Mass/Vol] 14 mg/dL 7-18 [facility] Work Phone: Thin prep Papanicolaou smear with manual screeningon 09-09-2021 Thin prep Papanicolaou smear with manual screening 37 U/L 15-37 [facility] Work Phone: Thin prep Papanicolaou smear with manual screening 9 5-15 [facility] Work Phone: Whole blood hemoglobin A1c/t otal hemoglobin ratio (mass fraction)on 09-09-2021 HbA1c (Bld) [Mass fraction] 7.9 % 3.8-5.6 [facility] Work Phone: Comment on above: Normal < 5.7 % Predi abetic 5.7 - 6.4 % Diabetic >or= 6.5 % Please note range changes. Vital Signs Date Time Vital Sign Value Performing Clinician Faci lity 12-15-2024 11:45-0500 Diastolic blood pressure 55 mm[Hg] Dr. Desiree Tapia MD Work Phone: [facility] 12-15-2024 11:45-0500 Heart rate 89 /min Dr. Desiree Tapia MD Work Phone: [facility] 12-15-2024 11:45-0500 Respiratory rate 18 /min Dr. Desiree Tapia MD Work Phone: [facility] 12-15-2024 11:45-0500 Systolic blood pressure 166 mm[Hg] Dr. Desiree Tapia MD Work Phone: [facility] 12-15-2024 11:06-0500 Body temperature 97.3 [degF] Dr. Desiree Tapia MD Work Phone: [facility] 12-15-2024 08:38-0500 Body height 154.[address] Desiree Tapia MD Work Phone: [facility] 12-15-2024 08:38-0500 Body mass index (BMI) [Ratio] 28.1 kg/m2 Dr. Desiree Tapia MD Work Phone: [facility] 12-15-2024 08:38-0500 Body temperature 97.9 [degF] Dr. Desiree Tapia MD Work Phone: 2(281)149-358183 [place] [address] 12-15-2024 08:38-0500 Body weight 67.[address] Desiree Tapia MD Work Phone: 2(517)084-780783 [place] [address] 12-15-2024 08:38-0500 Diastolic blood pressure 75 mm[Hg] Dr. Desiree Tapia MD Work Phone: 8(800)417-131687 [place] [address] 12-15-2024 08:38-0500 Heart rate 90 /min Dr. Desiree Tapia MD Work Phone: 7(629)531-717887 [place] [address] 12-15-2024 08:38-0500 Respiratory rate 18 /min Dr. Desiree Tapia MD Work Phone: 9(017)797-706287 [place] [address] 12-15-2024 08:38-0500 SaO2% (BldA) [Mass fraction] 93 % Dr. Desiree Tapia MD Work Phone: 2(829)340-958087 [place] [address] 12-15-2024 08:38-0500 Systolic blood pressure 155 mm[Hg] Dr. Desiree Tapia MD Work Phone: 3(426)153-201987 [place] [address] 12-11-2024 20:22-0500 Body temperature 98.4 [degF] Dr. Desiree Tapia MD Work Phone: [facility] 12-11-2024 20:22-0500 Diastolic blood pressure 43 mm[Hg] Dr. Desiree Tapia MD Work Phone: 0(664)138-181687 [place] [address] 12-11-2024 20:22-0500 Heart rate 76 /min Dr. Desiree Tapia MD Work Phone: 1(323)584-103987 [place] [address] 12-11-2024 20:22-0500 Respiratory rate 18 /min Dr. Desiree Tapia MD Work Phone: 8(138)243-759383 [place] [address] 12-11-2024 20:22-0500 SaO2% (BldA) [Mass fraction] 99 % Dr. Desiree Tapia MD Work Phone: 5(231)277-381383 [place] [address] 12-11-2024 20:22-0500 Systolic blood pressure 158 mm[Hg] Dr. Desiree Tapia MD Work Phone: 2(149)708-854987 [place] [address] 12-11-2024 19:27-0500 Body mass index (BMI) [Ratio] 29.5 kg/m2 Dr. Desiree Tapia MD Work Phone: 7(796)087-087887 [place] [address] 12-11-2024 19:27-0500 Body weight [address] Desiree Tapia MD Work Phone: 7(445)549-153719 [place] [address] 11-28-2024 12:59-0400 Body mass index (BMI) [Ratio] 27.6 kg/m2 Dr. Desiree Tapia MD Work Phone: 8(872)032-219919 [place] [address] 11-28-2024 12:59-0400 Body temperature 98.6 [degF] Dr. Desiree Tapia MD Work Phone: 5(762)108-702519 [place] [address] 11-28-2024 12:59-0400 Body weight 66.[address] Desiree Tapia MD Work Phone: 7(319)642-092687 [place] [address] 11-28-2024 12:59-0400 Diastolic blood pressure 65 mm[Hg] Dr. Desiree Tapia MD Work Phone: 9(742)773-438287 [place] [address] 11-28-2024 12:59-0400 Heart rate 84 /min Dr. Desiree Tapia MD Work Phone: 4(985)753-378087 [place] [address] 11-28-2024 12:59-0400 Respiratory rate 17 /min Dr. Desiree Tapia MD Work Phone: 9(547)655-789987 [place] [address] 11-28-2024 12:59-0400 SaO2% (BldA) [Mass fraction] 97 % Dr. Desiree Tapia MD Work Phone: 2(006)472-131687 [place] [address] 11-28-2024 12:59-0400 Systolic blood pressure 147 mm[Hg] Dr. Desiree Tapia MD Work Phone: 6(830)811-208583 [place] [address] 10-25-2024 14:12-0400 Body temperature 97.6 [degF] Dr. Desiree Tapia MD Work Phone: 0(135)490-477287 [place] [address] 10-25-2024 14:12-0400 Diastolic blood pressure 47 mm[Hg] Dr. Desiree Tapia MD Work Phone: 3(795)709-757287 [place] [address] 10-25-2024 14:12-0400 Heart rate 72 /min Dr. Desiree Tapia MD Work Phone: 1(052)418-96[address] [place] [address] 10-25-2024 14:12-0400 Respiratory rate 16 /min Dr. Desiree Tapia MD Work Phone: 7(993)872-489019 [place] [address] 10-25-2024 14:12-0400 SaO2% (BldA) [Mass fraction] 94 % Dr. Desiree Tapia MD Work Phone: 9(800)520-123687 [place] [address] 10-25-2024 14:12-0400 Systolic blood pressure 136 mm[Hg] Dr. Desiree Tapia MD Work Phone: 5(565)898-793087 [place] [address] 10-25-2024 12:27-0400 Body height 154.[address] Desiree Tapia MD Work Phone: 3(459)446-654587 [place] [address] 10-25-2024 12:27-0400 Body mass index (BMI) [Ratio] 28.4 kg/m2 Dr. Desiree Tapia MD Work Phone: 0(969)177-483687 [place] [address] 10-25-2024 12:27-0400 Body weight 68.[address] Desiree Tapia MD Work Phone: 6(798)745-628287 [place] [address] 10-21-2024 08:51-0400 Diastolic blood pressure 76 mm[Hg] Dr. Desiree Tapia MD Work Phone: 4(820)276-508987 [place] [address] 10-21-2024 08:51-0400 Heart rate 82 /min Dr. Desiree Tapia MD Work Phone: [facility] 10-21-2024 08:51-0400 Systolic blood pressure 151 mm[Hg] Dr. Desiree Tapia MD Work Phone: [facility] 06-28-2024 17:29-0400 Diastolic blood pressure 60 mm[Hg] Dr. Desiree Tapia MD Work Phone: [facility] 06-28-2024 17:29-0400 Systolic blood pressure 154 mm[Hg] Dr. Desiree Tapia MD Work Phone: [facility] 06-28-2024 14:04-0400 Body height 154.[address] Desiree Tapia MD Work Phone: [facility] 06-28-2024 14:04-0400 Body mass index (BMI) [Ratio] 27.5 kg/m2 Dr. Desiree Tapia MD Work Phone: [facility] 06-28-2024 14:04-0400 Body temperature 97.9 [degF] Dr. Desiree Tapia MD Work Phone: [facility] 06-28-2024 14:04-0400 Body weight 65.[address] Desiree Tapia MD Work Phone: [facility] 06-28-2024 14:04-0400 Diastolic blood pressure 70 mm[Hg] Dr. Desiree Tapia MD Work Phone: [facility] 06-28-2024 14:04-0400 Heart rate 79 /min Dr. Desiree Tapia MD Work Phone: [facility] 06-28-2024 14:04-0400 Respiratory rate 16 /min Dr. Desiree Tapia MD Work Phone: [facility] 06-28-2024 14:04-0400 SaO2% (BldA) [Mass fraction] 96 % Dr. Desiree Tapia MD Work Phone: [facility] 06-28-2024 14:04-0400 Systolic blood pressure 172 mm[Hg] Dr. Desiree Tapia MD Work Phone: [facility] 06-28-2024 13:05-0400 Body height 154.[address] Desiree Tapia MD Work Phone: [facility] 06-28-2024 13:05-0400 Body mass index (BMI) [Ratio] 27.3 kg/m2 Dr. Desiree Tapia MD Work Phone: [facility] 06-28-2024 13:05-0400 Body temperature 98.6 [degF] Dr. Desiree Tapia MD Work Phone: [facility] 06-28-2024 13:05-0400 Body weight 65.[address] Desiree Tapia MD Work Phone: [facility] 06-28-2024 13:05-0400 Diastolic blood pressure 62 mm[Hg] Dr. Desiree Tapia MD Work Phone: [facility] 06-28-2024 13:05-0400 Heart rate 83 /min Dr. Desiree Tapia MD Work Phone: [facility] 06-28-2024 13:05-0400 Respiratory rate 16 /min Dr. Desiree Tapia MD Work Phone: [facility] 06-28-2024 13:05-0400 SaO2% (BldA) [Mass fraction] 96 % Dr. Desiree Tapia MD Work Phone: [facility] 06-28-2024 13:05-0400 Systolic blood pressure 175 mm[Hg] Dr. Desiree Tapia MD Work Phone: [facility] 04-19-2024 13:18-0400 Body temperature 98 [degF] Dr. Desiree Tapia MD Work Phone: [facility] 04-19-2024 13:18-0400 Body weight 66.[address] Desiree Tapia MD Work Phone: [facility] 04-19-2024 13:18-0400 Diastolic blood pressure 62 mm[Hg] Dr. Desiree Tapia MD Work Phone: [facility] 04-19-2024 13:18-0400 Heart rate 78 /min Dr. Desiree Tapia MD Work Phone: 3(142)360-174987 [place] [address] 04-19-2024 13:18-0400 Respiratory rate 16 /min Dr. Desiree Tapia MD Work Phone: [facility] 04-19-2024 13:18-0400 SaO2% (BldA) [Mass fraction] 97 % Dr. Desiree Tapia MD Work Phone: [facility] 04-19-2024 13:18-0400 Systolic blood pressure 153 mm[Hg] Dr. Desiree Tapia MD Work Phone: [facility] 03-22-2024 12:52-0500 Body height 154.[address] Desiree Tapia MD Work Phone: [facility] 03-22-2024 12:52-0500 Body mass index (BMI) [Ratio] 27 kg/m2 Dr. Desiree Tapia MD Work Phone: [facility] 03-22-2024 12:52-0500 Body temperature 98.4 [degF] Dr. Desiree Tapia MD Work Phone: [facility] 03-22-2024 12:52-0500 Body weight 64.[address] Desiree Tapia MD Work Phone: [facility] 03-22-2024 12:52-0500 Diastolic blood pressure 62 mm[Hg] Dr. Desiree Tapia MD Work Phone: [facility] 03-22-2024 12:52-0500 Heart rate 85 /min Dr. Desiree Tapia MD Work Phone: [facility] 03-22-2024 12:52-0500 Respiratory rate 16 /min Dr. Desiree Tapia MD Work Phone: [facility] 03-22-2024 12:52-0500 SaO2% (BldA) [Mass fraction] 96 % Dr. Desiree Tapia MD Work Phone: [facility] 03-22-2024 12:52-0500 Systolic blood pressure 148 mm[Hg] Dr. Desiree Tapia MD Work Phone: [facility] 01-04-2024 08:45-0500 Body temperature 97.1 [degF] Dr. Desiree Tapia MD Work Phone: [facility] 01-04-2024 08:45-0500 Diastolic blood pressure 78 mm[Hg] Dr. Desiree Tapia MD Work Phone: [facility] 01-04-2024 08:45-0500 Heart rate 70 /min Dr. Desiree Tapia MD Work Phone: [facility] 01-04-2024 08:45-0500 Respiratory rate 18 /min Dr. Desiree Tapia MD Work Phone: [facility] 01-04-2024 08:45-0500 SaO2% (BldA) [Mass fraction] 96 % Dr. Desiree Tapia MD Work Phone: [facility] 01-04-2024 08:45-0500 Systolic blood pressure 117 mm[Hg] Dr. Desiree Tapia MD Work Phone: [facility] 01-04-2024 07:29-0500 Body mass index (BMI) [Ratio] 28.8 kg/m2 Dr. Desiree Tapia MD Work Phone: [facility] 01-04-2024 07:29-0500 Body weight 69.[address] Desiree Tapia MD Work Phone: [facility] 10-30-2022 10:58-0400 Body height 154.[address] Desiree Tapia Work Phone: [facility] 10-30-2022 10:58-0400 Body mass index (BMI) [Ratio] 28.5 kg/m2 Dr. Desiree Tapia Work Phone: [facility] 10-30-2022 10:58-0400 Body temperature 98.6 [degF] Dr. Desiree Tapia Work Phone: [facility] 10-30-2022 10:58-0400 Body weight 68.[address] Desiree Tapia Work Phone: [facility] 10-30-2022 10:58-0400 Diastolic blood pressure 52 mm[Hg] Dr. Desiree Tapia Work Phone: [facility] 10-30-2022 10:58-0400 Heart rate 81 /min Dr. Desiree Tapia Work Phone: [facility] 10-30-2022 10:58-0400 Respiratory rate 17 /min Dr. Desiree Tapia Work Phone: [facility] 10-30-2022 10:58-0400 SaO2% (BldA) [Mass fraction] 94 % Dr. Desiree Tapia Work Phone: [facility] 10-30-2022 10:58-0400 Systolic blood pressure 126 mm[Hg] Dr. Desiree Tapia Work Phone: [facility] 2022 10:07-0400 Body weight 68.[address] Desiree Tapia Work Phone: [facility] 2022 10:07-0400 Diastolic blood pressure 56 mm[Hg] Dr. Desiree Tapia Work Phone: [facility] 2022 10:07-0400 Heart rate 88 /min Dr. Desiree Tapia Work Phone: [facility] 2022 10:07-0400 Respiratory rate 18 /min Dr. Desiree Tapia Work Phone: [facility] 2022 10:07-0400 SaO2% (BldA) [Mass fraction] 99 % Dr. Desiree Tapia Work Phone: [facility] 2022 10:07-0400 Systolic blood pressure 142 mm[Hg] Dr. Desiree Tapia Work Phone: [facility] 02-20-2022 08:55-0500 Body height 154.[address] Desiree Tapia Work Phone: [facility] 02-20-2022 08:55-0500 Body mass index (BMI) [Ratio] 28.8 kg/m2 Dr. Desiree Tapia Work Phone: [facility] 02-20-2022 08:55-0500 Body temperature 98.4 [degF] Dr. Desiree Tapia Work Phone: [facility] 02-20-2022 08:55-0500 Body weight 69.[address] Desiree Tapia Work Phone: [facility] 02-20-2022 08:55-0500 Diastolic blood pressure 60 mm[Hg] Dr. Desiree Tapia Work Phone: [facility] 02-20-2022 08:55-0500 Heart rate 91 /min Dr. Desiree Tapia Work Phone: [facility] 02-20-2022 08:55-0500 Respiratory rate 16 /min Dr. Desiree Tapia Work Phone: [facility] 02-20-2022 08:55-0500 SaO2% (BldA) [Mass fraction] 96 % Dr. Desiree Tapia Work Phone: [facility] 02-20-2022 08:55-0500 Systolic blood pressure 160 mm[Hg] Dr. Desiree Tapia Work Phone: [facility] 09-10-2021 12:35-0400 Body temperature 98.6 [degF] Dr. Desiree Tapia Work Phone: [facility] Work Phone: 09-10-2021 12:35-0400 Diastolic blood pressure 61 mm[Hg] Dr. Desiree Tapia Work Phone: [facility] Work Phone: 09-10-2021 12:35-0400 Heart rate 80 /min Dr. Desiree Tapia Work Phone: [facility] Work Phone: 09-10-2021 12:35-0400 Respiratory rate 18 /min Dr. Desiree Tapia Work Phone: [facility] Work Phone: 09-10-2021 12:35-0400 SaO2% (BldA) [Mass fraction] 98 % Dr. Desiree Tapia Work Phone: [facility] Work Phone: 09-10-2021 12:35-0400 Systolic blood pressure 151 mm[Hg] Dr. Desiree Tapia Work Phone: [facility] Work Phone: 09-09-2021 16:02-0400 Body mass index (BMI) [Ratio] 27.8 kg/m2 Dr. Desiree Tapia Work Phone: [facility] Work Phone: 09-09-2021 15:09-0400 Body height 154.[address] Desiree Tapia Work Phone: [facility] Work Phone: 09-09-2021 15:09-0400 Body weight 66.[address] Desiree Tapia Work Phone: [facility] Work Phone: 09-09-2021 13:43-0400 Body temperature 97.8 [degF] [facility] Work Phone: 09-09-2021 13:43-0400 Diastolic blood pressure 48 mm[Hg] [facility] Work Phone: 09-09-2021 13:43-0400 Heart rate 89 /min [facility] Work Phone: 09-09-2021 13:43-0400 Respiratory rate 20 /min [facility] Work Phone: 09-09-2021 13:43-0400 SaO2% (BldA) [Mass fraction] 96 % [facility] Work Phone: 09-09-2021 13:43-0400 Systolic blood pressure 156 mm[Hg] [facility] Work Phone: 09-09-2021 11:41-0400 Body height 157 cm [facility] Work Phone: 09-09-2021 11:41-0400 Body mass index (BMI) [Ratio] 27.2 kg/m2 [facility] Work Phone: 09-09-2021 11:41-0400 Body weight 67.13 kg [facility] Work Phone: Encounters Encounter Date Encounter Type Care Provider Facility Start: 12-15-2024 ambulatory Desiree Miumer Facility: [facility] Start: 12-15-2024 End: 12-15-2024 ambulatory [facility] Facility:[facility] Start: 12-11-2024 End: 12-11-2024 Emergency department patient visit [facility] Facility:[facility] Start: 11-28-2024 End: 11-28-[address] Surendra Hidalgo MD -[facility] Work Phone: Start: 11-28-2024 End: 11-28-[address] Surendra Hidalgo MD -[facility] Work Phone: Start: 11-28-2024 End: 11-28-[address] Desiree Tapia MD Work Phone: -[facility] Start: 11-28-2024 End: 11-28-2024 ambulatory [facility] Facility:[facility] Start: 11-25-2024 End: 11-25-2024 Patient encounter procedure Moy Ramos DO [facility] Work Phone: Start: 11-25-2024 End: 11-25-2024 ambulatory [facility] Facility:[facility] Start: 11-22-2024 ambulatory [facility] Facility: [facility] Start: 11-22-2024 Non-patient / Non-visit Dr. Arya Argueta MD -[facility] Start: 11-22-2024 End: 11-22-2024 Patient encounter procedure Haley BRADFORD -[facility] Services Work Phone: Start: 11-22-2024 End: 11-22-2024 ambulatory [facility] Facility:[facility] Start: 11-03-2024 End: 11-03-2024 Patient encounter procedure Moy Ramos DO [facility] Work Phone: Start: 11-03-2024 End: 11-03-[address] Desiree Tapia MD Work Phone: [facility] Start: 10-25-2024 Non-patient / Non-visit Moy Ramos DO [facility] Start: 10-25-2024 End: 10-25-2024 Admission to same day surgery center Moy Ramos DO -Endoscopy Work Phone: Start: 10-25-2024 End: 10-25-[address] Desiree Tapia MD Work Phone: -Endoscopy Start: 10-21-2024 End: 10-21-2024 Patient encounter procedure Lesly BRADFORD -[facility] Work Phone: Start: 10-21-2024 End: 10-21-[address] Desiree Tapia MD Work Phone: -[facility] Start: 10-21-2024 End: 10-21-2024 ambulatory Desiree Tapia Facility:[facility] Start: 10-04-2024 End: 10-04-[address] Desiree Tapia MD Work Phone: -Laboratory [facility] Start: 10-04-2024 End: 10-04-[address] Desiree Tapia MD -Laboratory [facility] Start: 10-04-2024 End: 10-04-2024 ambulatory Desiree Tapia Facility:[facility] Start: 08-29-2024 End: 08-29-[address] Desiree Tapia MD Work Phone: -Radiology [facility] Start: 08-29-2024 End: 08-29-[address] Surendra Hidalgo MD -Radiology [facility] Work Phone: Start: 08-29-2024 End: 08-29-2024 ambulatory Surendra Hidalgo Facility:[facility] Start: 06-28-2024 End: 06-28-[address] Desiree Tapia MD Work Phone: [facility] Work Phone: Start: 06-28-2024 End: 06-28-2024 Patient encounter procedure Miguel BRADFORD -[facility] Work Phone: Start: 06-28-2024 End: 06-28-[address] Surendra Hidalgo MD -[facility] Work Phone: Start: 06-28-2024 End: 06-28-[address] Desiree Tapia MD Work Phone: [facility] Work Phone: Start: 04-19-2024 End: 04-19-2024 Patient encounter procedure Haley BRADFORD -[facility] Work Phone: Start: 04-19-2024 End: 04-19-2024 ambulatory Desiree Tapia Facility:[facility] Start: 04-19-2024 Non-patient / Non-visit Dr. Arya Argueta MD -[facility] Start: 04-19-2024 End: 04-19-[address] Desiree Tapia MD Work Phone: [facility] Work Phone: Start: 04-19-2024 End: 04-19-2024 Patient encounter procedure Haley BRADFORD -Cardiovascular Services Work Phone: Start: 04-19-2024 End: 04-19-2024 ambulatory Desiree Tapia Facility:[facility] Start: 04-01-2024 End: 04-01-[address] Desiree Tapia MD Work Phone: [facility] Work Phone: Start: 04-01-2024 End: 04-01-[address] Desiree Tapia MD -[facility] Start: 04-01-2024 End: 04-01-2024 ambulatory Desiree Tpaia Facility:[facility] Start: 03-22-2024 End: 03-22-[address] Surendra Hidalgo MD -[facility] Work Phone: Start: 03-22-2024 End: 02-11-2025 ambulatory Desiree Tapia Facility:[facility] Start: 01-11-2024 End: 01-11-[address] Desiree Tapia MD -Laboratory, Specimen Work Phone: Start: 01-11-2024 End: 01-11-2024 ambulatory Desiree Sharproldan Facility:[facility] Start: 01-04-2024 Non-patient / Non-visit Moy Ramos DO -[facility] Start: 01-04-2024 End: 01-04-2024 Admission to same day surgery center Moyisidro Ramos -Endoscopy Work Phone: Start: 01-04-2024 End: 01-04-20[facility] Start: 02-23-2023 Non-patient / Non-visit Dr. Desiree Tapia Work Phone: [facility] Start: 02-23-2023 End: 02-23-[address] Desiree Tapia Work Phone: [facility] Work Phone: Start: 02-23-2023 End: 02-23-[address] [facility] Start: 11-25-2022 End: 11-25-[address] Desiree Tapia Work Phone: [facility] Work Phone: Start: 11-25-2022 End: 11-25-[address] Desiree Tapia Work Phone: [facility]-Sleep Lab Work Phone: Start: 10-30-2022 End: 10-30-[address] Desiree Tapia Work Phone: [facility] Work Phone: Start: 06-11-2022 End: 06-11-[address] Desiree Tapia Work Phone: [facility] Work Phone: Start: 06-11-2022 End: 06-11-[address] Desiree Tapia Work Phone: [facility] Start: 05-20-2022 End: 05-20-[address] Desiree Tapia Work Phone: [facility]-Laboratory Start: 2022 End: [address] Desiree Tapia Work Phone: [facility] Vascular Surgery Start: 04-30-2022 Non-patient / Non-visit Dr. Desiree Tapia Work Phone: [facility] Start: 04-30-2022 End: 04-30-[address] Desiree Tapia Work Phone: [facility] Work Phone: Start: 04-30-2022 End: 04-30-[address] Desiree Tapia Work Phone: [facility]-Pulmonary Services/Neurology Start: 04-08-2022 End: 04-08-[address] Desiree Tapia Work Phone: [facility]-Nuclear Medicine, [facility] Start: 02-25-2022 End: 02-25-[address] Desiree Tapia Work Phone: [facility] Work Phone: Start: 02-25-2022 End: 02-25-[address] Desiree Tapia Work Phone: [facility]-Cardiovascular Services Start: 02-25-2022 Non-patient / Non-visit Dr. Desiree Tapia Work Phone: [facility] Start: 02-20-2022 End: 02-20-[address] Desiree Tapia Work Phone: [facility] Neurology Start: 01-30-2022 End: 01-30-2022 ambulatory [facility] Work Phone: Start: 01-30-2022 End: 01-30-2022 Patient encounter procedure [facility] Start: 09-16-2021 End: 12-10-2021 ambulatory DESIREE TAPIA Facility:B Start: 09-10-2021 Non-patient / Non-visit Dr. Desiree Tapia Work Phone: [facility] Start: 09-09-2021 Non-patient / Non-visit Dr. Desiree Tapia Work Phone: [facility] Start: 09-09-2021 End: 09-10-2021 Evaluation and management of inpatient [facility]-Progressive Care Unit Start: 10-14-2017 End: 10-14-2017 Patient encounter DESIREE De Oliveira [facility] Procedures Date Procedure Procedure Detail Performing Clinician [...] Activity Detail Author Start: 01-04-2025 ambulatory Ambulatory Facility:[facility] Start: 12-15-2024 Microscopic observation [Identifier] in Body fluid by Cyto stain [facility] Start: 12-15-2024 Centesis Paracentesis with US [facility] Start: 12-15-2024 Acute hepatitis 2000 panel - Serum [facility] Start: 12-15-2024 Patient encounter procedure Registered Clinical -Ultrasound [facility] Work Phone: Start: 12-15-2024 End: 12-15-2024 Patient encounter procedure Dysphagia -[facility] Work Phone: Start: 12-11-2024 [facility] Start: 12-11-2024 Centesis [facility] Start: 12-11-2024 Ct abdomen & pelvis w/contrast material Abdomen/Pelvis W IV Cont ONLY [facility] Start: 12-11-2024 End: 12-11-2024 Emergency department patient visit Departed Emergency -Emergency Department Work Phone: Start: 10-25-2024 Enteroscopy > 2nd prtn w/control bleeding SMALL BOWEL ENDOSCOPY [facility] Start: 10-25-2024 Patient discharge [facility] Start: 01-04-2024 Egd transoral biopsy single/multiple EGD BIOPSY SINGLE/MULTIPLE [facility] Start: 01-04-2024 Egd transoral control bleeding any method EGD CONTROL BLEEDING ANY [facility] Start: 01-04-2024 Patient discharge [facility] Start: 03-20-2022 Patient referral [facility] Work Phone: Start: 09-10-2021 Patient discharge [facility] Work Phone: Start: 09-10-2021 Cardiac event recording [facility] Work Phone: Start: 09-09-2021 Following clinical pathway protocol [facility] Work Phone: Start: 09-09-2021 Assessment of risk of venous thromboembolism [facility] Work Phone: Start: 09-09-2021 Cardiac monitoring [facility] Work Phone: Start: 09-09-2021 Care regimes management [facility] Work Phone: Start: 09-09-2021 Catheterization of vein [facility] Work Phone: Start: 09-09-[address] [facility] Work Phone: Start: 09-09-2021 Elevation of head of bed [facility] Work Phone: Start: 09-09-2021 Exercises [facility] Work Phone: Start: 09-09-2021 Implementation of planned interventions [facility] Work Phone: Start: 09-09-2021 Insertion of catheter into peripheral vein [facility] Work Phone: Start: 09-09-2021 Measuring intake and output [facility] Work Phone: Start: 09-09-[address] [facility] Work Phone: Start: 09-09-2021 Oxygen therapy [facility] Work Phone: Start: 09-09-2021 Patient referral to dietitian [facility] Work Phone: Start: 09-09-2021 Providing care according to standard [facility] Work Phone: Start: 09-09-2021 Provision of activity privileges [facility] Work Phone: Start: 09-09-2021 Referral to occupational therapist [facility] Work Phone: Start: 09-09-2021 Referral to service [facility] Work Phone: Start: 09-09-[address] [facility] Work Phone: Start: 09-09-2021 [facility] Work Phone: Start: 09-09-2021 Admission procedure [facility] Work Phone: Start: 09-09-2021 [facility] Work Phone: [id number]. tumor marker [Units/volume] in Serum or Plasma [facility] Antibody to lupus La protein measurement [facility] Work Phone: Antibody to SS-A measurement [facility] Work Phone: CBC W Auto Different ial panel - Blood [facility] Centromere protein B Ab [Units/volume] in Serum [facility] Work Phone: Chromatin Ab [Units/volume] in Serum or Plasma [facility] Work Phone: Comprehensive metabo lic 2000 panel - Serum or Plasma [facility] Cytology report of B pan fluid Cyto stain [facility] DNA double strand Ab [Units/volume] in Serum [facility] Work Phone: DXA Bone [Mass/Area] Bone density [facility] Hepatitis A virus Ig M Ab [Presence] in Serum [facility] Hepatitis B core ant ibody measurement, IgM type [facility] Hepatitis B surface antigen measurement [facility] Hepatitis C antibody measurement [facility] Sarah-1 extractable nuc lear Ab [Units/volume] in Serum [facility] Work Phone: Nuclear Ab [Presence ] in Serum [facility] Work Phone: Patient Education [facility] Work Phone: Patient referral [facility] Work Phone: [id number] extractable nuclear Ab [Units/volume] in Serum by Immunoassay [facility] Work Phone: Howell extractable nu clear Ab [Presence] in Serum [facility] Work Phone: US Carotid arteries [facility] US Carotid arteries [facility] Immunizations Immunization Date Immunization Notes Care Provider Alan peña 05-24-2021 Covid (Pfizer) Dr. Desiree owusu Work Phone: [facility] 12-25-2020 Covid (Pfizer) Dr. Desiree owusu Work Phone: [facility] 05-10-2020 Covid (Pfizer) [facility] 04-19-2020 Covid (Pfizer) [facility] Payers Date Payer Category Payer Self-pay [id number] 2021 Private Health Insurance [id number] 1945 Unknown [id number] 2.16.8 [id number] Medicare [id number] Medicare [id number] Unknown [id number] 2.16.8 40.1.395736.3.579.2.462 Unknown [id number] 2.16.8 40.1.888975.3.579.2.462 Unknown [id number] 2.16.8 40.1.333112.3.579.2.462 Unknown [id number] 2.16.8 40.1.195317.3.579.2.462 Unknown [id number] 2.16.8 40.1.832945.3.579.2.462 Unknown [id number] 2.16.8 40.1.896439.3.579.2.462 Unknown [id number] 2.16.8 40.1.262451.3.579.2.462 Unknown [id number] 2.16.8 40.1.993414.3.579.2.462 Unknown [id number] 2.16.8 40.1.256563.3.579.2.462 Unknown [id number] 2.16.8 40.1.868127.3.579.2.462 Unknown [id number] 2.16.8 40.1.519930.3.579.2.462 Unknown [id number] 2.16.8 40.1.796214.3.579.2.462 Unknown [id number] 2.16.8 40.1.067586.3.579.2.462 Unknown [id number] 2.16.8 40.1.696430.3.579.2.462 Unknown [id number] 2.16.8 40.1.959581.3.579.2.462 Unknown [id number] 2.16.8 40.1.899786.3.579.2.462 Unknown [id number] 2.16.8 40.1.835939.3.579.2.462 Unknown [id number] 2.16.8 40.1.108568.3.579.2.462 Unknown [id number] 2.16.8 40.1.447314.3.579.2.462 Unknown [id number] 2.16.8 40.1.849705.3.579.2.462 Unknown [id number] 2.16.8 40.1.341988.3.579.2.462 Unknown [id number] 2.16.8 40.1.117829.3.579.2.462 Unknown [id number] 2.16.8 40.1.124891.3.579.2.462 Unknown [id number] 2.16.8 40.1.364244.3.579.2.462 Unknown [id number] 2.16.8 40.1.216929.3.579.2.462 Unknown [id number] 2.16.8 40.1.643115.3.579.2.462 Social History Date Type Detail Facility Start: 09-09-2021 End: 10-30-2022 Tobacco smoking status NHIS Unknown if ever smoked [facility] Start: 1945 Sex Assigned At Female [facility] Start: 09-10-2021 Non-smoker [facility] Start: 12-31-2023 End: 12-11-2024 Tobacco smoking status NHIS Never smoked tobacco (finding) [facility] Start: 04-14-2024 End: 04-28-2024 Sex Female (finding) [facility] Not [facility] Goals Date Patient Goal Desired Activity /State Functional Status Date Assessment Result Facility 09-10-2021 Functional status Ambulates [facility] Work Phone: Mental Status Date Assessment Result Facility 12-15-2024 Cognitive function Level Of Consciousness Awake [facility] Work Phone: 10-25-2024 Cognitive function Voice/Name [facility] Work Phone: 01-04-2024 Cognitive function Voice/Name;Touch/Shaki ng [facility] Work Phone: 09-10-2021 Cognitive function Voice/Name [facility] Work Phone: 09-09-2021 Cognitive function Voice/Name [facility] Work Phone: Clinical Notes 04-30-2022 to 11-28-2024 Note Date & Type Note Facility 11-28-2024 Progress note [facility] 11-28-2024 Progress note Note Date/Time November 28, 2024 2:49pm [facility] [address] [place] [address], [address] [place] [address] OFFICE VISIT Date of Service: 11/28/24 MR#: [id number] Acct: [id number] Name: SANDIE ANGELES DAWSON Rep #: [id number] : 1945 Provider: Dr. Katiana Hidalgo MD Age/Sex: 79/F Location: [facility] Status: Signed [facility] Chief Complaint: Fatigue, anemia Details: Interim History: [...] affect the eye directly. 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 She was treated with a course of [...] in the toes. She takes acetaminophen and [id number] ibuprofen for her pain in the feet [...] however the patient did not see a cardiology consultants. Right ankle x-rays revealed mild soft tissue [...] following initiation of gabapentin. She sees a sole painter, Dr. Escobar, and has receivedright infrascapular region [...] (high), creatinine 1.35 (high), eGFR 39 (low), [id number] (high) Carotid ultrasound (11/22/24): Moderate (50-69%) stenosis [...] - She is to follow-up with her training analyst. She has peripheral vascular disease. She was [...] following right infrascapular injections administered by her sole painter, Dr. Escobar. Demineralization was noted on her [...] of constipation and was discontinued. She saw training analyst, Dr. Ramos, and was found to have gastropathy with evidence of recent bleeding; this was treated with a heater probe in December 2023. Her hemoglobin, hematocrit, iron, and ferritin (March 2024) were normal however more recently she is again anemic and has a low iron. - She was advised to follow-up with her training analyst, Dr. 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 Accompanied by: Allergies Sulfa (Sulfonamide [...] in: other frequency: 1-2 times per week luna/worship: Sikh seatbelt use: always Clinical Quality Measures Falls Risk Screening/Assistive Devices Have you fallen in the past year?: No Coding Level of Care Code Off vis,est,level 4 Diagnoses Anemia D64.9 Post-polio syndrome G14 Polyneuropathy G62.9 Cerebrovascular disease I67.9 Post herpetic neuralgia B02.29 Osteopenia M85.80 11/29/24 0657 <Electronically signed by Surendra garcia MD> Date _ [facility] Signature: Date (if applicable) CC: ~ [facility] Work Phone: 1(674) 241-341709-16-2025 History and physical note Author Moy Ramos [facility] Note Date/Time October 25, 2024 12:49pm [facility] Medical Records Department [address] [place] [address] History & Physical Exam 10/25/24 1247 MR#: [id number] Acct: [id number] Name: SANDIE ANGELES DAWSON Rep #:[id number] : 1945 79 From: Moy Ramos DO PCP: Dr. Desiree Tapia MD Status:[facility] Location: [place] [address] HPI - General General Date of Admission: [...] 2 weeks ago. She denies black/tarry stool. [facility] Medical History Thyroid disease Post-menopausal Insulin [...] in: other frequency: 1-2 times per week luna/worship: Sikh seatbelt use: always ROS Constitutional Constitutional: Denies [...] pending result may have to refer her [facility]. 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 Desiree Tapia MD Status:REG SDC Y Race: C Location: [place] [address] ASA Classification* ASA Classification ASA Classification: 3 [...] Procedure(s): EGD Anesthesia History Anesthesia History - wafer polisher: Anesthesia History - wafer polisher Hx Hospitalization No 10/21/24 11:31 Any Problems [...] am of surgery omeprazole PONV PONV - wafer polisher: PONV - wafer polisher Female Yes 10/21/24 11:31 HX of Motion [...] 10/25/24 12:27 Respiratory Assessment Respiratory Assessment - wafer polisher: Respiratory Tract Infection Hx - wafer polisher Hx Respiratory Tract Infection No 10/21/24 11:31 STOP Sleep Apnea STOP Sleep Apnea - wafer polisher: STOP Sleep Apnea - wafer polisher Hx Hypertension Yes: CONTROLLED WITH MED 10/21/24 [...] Tobacco Use History Tobacco Use History - wafer polisher: Tobacco Use History - wafer polisher Tobacco Use Non-smoker 09/10/21 10:00 Smoking Status Never smoker 10/21/24 11:31 Hx Tobacco Use No 10/21/24 11:31 Years Smoking Packs Smoked per Day Smoking Cessation Date was within the last 15 years Hx Smoking Cessation Date Hx Smoking Cessation No: patient doesn't smoke 10/21/24 11:31 Counseling Hematologic Medial History Hematologic Hx - wafer polisher: Hematologic Medical Hx - manager electrical Hx of Blood Transfusion No 10/21/24 11:31 [...] confused, unrespo /Reproduction History /Reproductive History - wafer polisher: /Reproductive Hx- wafer polisher Hx Now No 10/21/24 11:31 Gestational Age [...] in: other frequency: 1-2 times per week luna/worship: Sikh seatbelt use: always Review of Systems (Anesthesia) ROS Narrative System reviewed and no additional complaints, except as documented. 10/25/24 1244 <Electronically signed by Margarita davis CRNA> Date _ Margarita Gonzalez CRNA Cosigner Signature: Date CC: ~ Signed [facility] Work Phone: 1(218) 336-616409-16-2025 Consult note [facility] Medical Records Department [address] [place] [address] Anesthesia Postop Eval I 10/25/24 1352 MR#: [id number] Acct: [id number] Name: SANDIE ANGELES DAWSON Rep #:[id number] : 1945 79 From: Stanislav Altamirano PCP: Dr. Desiree Tapia MD Status:REG SDC Y Race: C Location: [place] [address] Anesthesia: Postop Eval I Current Vital Signs [...] Warebilly Jonesion Signature: Date CC: ~ Signed [facility]09-16-2025 Procedure note [facility] Medical Records Department [address] [place] [address] EGD Report MR#: [id number] Acct: [id number] Name: SANDIE ANGELES DAWSON Rep #:[id number] : 1945 79 From: Moy Ramos DO PCP: Dr. Desiree Tapia MD Status:[facility] Patient Name: Sandie Angeles Procedure Date: 10/25/2024 [...] present medications. Procedure Code(s): --- Professional --- 74338, Small intestinal endoscopy, enteroscopy beyond second portion of duodenum, not including ileum; with control of bleeding (eg, injection, bipolar cautery, unipolar cautery, laser, heater probe, stapler, plasma stitching machine setter) CPT copyright 2021 [employer]. All rights reserved. The codes documented in this report are preliminary and upon yard rigger review may be revised to meet current compliance requirements. Moy Ramos DO 10/25/2024 1:53:07 PM This report has been signed electronically. Number of Addenda: 0 Note Initiated On: 10/25/2024 1:23 PM 10/25/24 1353 Date _ Moy Ramos DO Cosigner Signature: Date (if indicated) CC: Dr. Desiree Taipa MD; Moy Ramos DO ~ Date Dictated: 10/25/24 1323 Date Transcribed: Certified Personal Trainer: RF Signed [facility]09-16-2025 Procedure note [facility] Medical Records Department [address] [place] [address] Provation Physician Letter MR#: [id number] Acct: [id number] Name: VIJAY ANGELESQUELINE DAWSON Rep #:[id number] : 1945 79 From: Moy Ramos DO PCP: Dr. Desiree Tapia MD Status:REG [facility] 10/25/2024 Desiree Tapia [address] [place] [address] Re : Upper GI endoscopy procedure for [...] ~ Date Dictated: 10/25/24 1323 Date Transcribed: Certified Personal Trainer: RF Signed [facility]09-16-2025 History and physical note [facility] Medical Records Department [address] [place] [address] History & Physical Exam 10/25/24 1247 MR#: [id number] Acct: [id number] Name: SANDIE ANGELES DAWSON Rep #:[id number] : 1945 79 From: Moy Ramos DO PCP: Dr. Desiree Tapia MD Status:[facility] Location: [place] [address] HPI - General General Date of Admission: [...] 2 weeks ago. She denies black/tarry stool. [facility] Medical History Thyroid disease Post-menopausal Insulin [...] in: other frequency: 1-2 times per week luna/worship: Sikh seatbelt use: always ROS Constitutional Constitutional: Denies [...] pending result may have to refer her [facility]. She was scheduled for EGD next [...] Desiree Tapia MD; Moy Ramos DO~ Signed [facility]09-16-2025 [facility] Medical Records Department [address] [place] [address] History Physical Exam 10/25/24 1247 MR#: [id number] Acct: [id number] Name: SANDIE ANGELES DAWSON Rep #: [id number] : 1945 79 From: Moy Ramos DO PCP: Dr. Desiree Tapia MD Status:REG [facility] Location: [place] [address] HPI - General General Date of Admission: [...] 2 weeks ago. She denies black/tarry stool. [facility] Medical History Thyroid disease Post-menopausal Insulin [...] in: other frequency: 1-2 times per week luna/worship: Sikh seatbelt use: always ROS Constitutional Constitutional: Denies fatigue, fever(s), poor appetite, weight gain or weight loss Gastrointestinal Gastrointestinal: D (more content not included)...[facility] 10-25-2024 Consult note [facility] Medical Records Department [address] [place] [address] Pre-Anesthesia Evaluation 10/25/24 1237 MR#: [id number] Acct: [id number] Name: SANDIE ANGELES Rep #:[id number] : 1945 79 From: Margarita mckeon CRNA PCP: Dr. Desiree Tapia MD Status:REG [facility] Y Race: C Location: [place] [address] ASA Classification* ASA Classification ASA Classification: 3 [...] Procedure(s): EGD Anesthesia History Anesthesia History - wafer polisher: Anesthesia History - wafer polisher Hx Hospitalization No 10/21/24 11:31 Any Problems [...] am of surgery omeprazole PONV PONV - wafer polisher: PONV - wafer polisher Female Yes 10/21/24 11:31 HX of Motion [...] 10/25/24 12:27 Respiratory Assessment Respiratory Assessment - wafer polisher: Respiratory Tract Infection Hx - wafer polisher Hx Respiratory Tract Infection No 10/21/24 11:31 STOP Sleep Apnea STOP Sleep Apnea - wafer polisher: STOP Sleep Apnea - wafer polisher Hx Hypertension Yes: CONTROLLED WITH MED 10/21/24 [...] Tobacco Use History Tobacco Use History - wafer polisher: Tobacco Use History - wafer polisher Tobacco Use Non-smoker 09/10/21 10:00 Smoking Status Never smoker 10/21/24 11:31 Hx Tobacco Use No 10/21/24 11:31 Years Smoking Packs Smoked per Day Smoking Cessation Date was within the last 15 years Hx Smoking Cessation Date Hx Smoking Cessation No: patient doesn't smoke 10/21/24 11:31 Counseling Hematologic Medial History Hematologic Hx - wafer polisher: Hematologic Medical Hx - manager electrical Hx of Blood Transfusion No 10/21/24 11:31 [...] confused, unrespo /Reproduction History /Reproductive History - wafer polisher: /Reproductive Hx- wafer polisher Hx Now No 10/21/24 11:31 Gestational Age [...] in: other frequency: 1-2 times per week luna/worship: Sikh seatbelt use: always Review of Systems (Anesthesia) ROS Narrative System reviewed and no additional complaints, except as documented. 10/25/24 1244 ryan ORGANISATION AND METHODS ANALYST> Date _ Margarita Gonzalez ORGANISATION AND METHODS ANALYST Cosigner Signature: Date CC: ~ Signed [facility]09-12-2025 Evaluation note* Diagnosis Onset Date Resolution Status Admit Date Iron deficiency anemia chronic Se ptember 2024 8:20am Anemia acute October 11:57am Dysphagia acute October 11:57am [facility] Work Phone: 1(207) 157-589109-12-2025 Evaluation note* Diagnosis Onset Date Resolution Status [...] KHALIL (nonalcoholic steatohepatitis) acute December 15, 8:26am [facility] Work Phone: 1(893) 774-387109-01-2025 [facility] [address] [place] [address] OFFICE VISIT Date of Service: 11/03/24 MR#: [id number] Acct: [id number] Patient: SANDIE ANGELES DAWSON Rep #: [id number] : 1945 Provider: Moy Ramos DO Age/Sex: 79/F Location: [facility] Status: Signed Intake Vital Signs 10/25/24 12:27 Height 5 ft 1 in Intake Visit Reasons: Cap Endo Chief Complaint: Anemia Allergies Sulfa (Sulfonamide Antibiotics) Allergy (Unknown, Verified 10/25/24 12:26) Hives adhesive tape Adverse Reaction (Intermediate, Verified 10/25/24 12:26) Rash latex Adverse Reaction (Verified 10/25/24 12:26) skin reaction Have you fallen in the past year?: No Office Procedures Procedure Administration Route: PO Administration Location: [facility] Dispensed Units: 1 Capsule Lot Number: [id number] Expiration Date: 08/18/25 Capsule ID Number: [id number] Consent Form Signed: Yes Comments: Tolerated well. Reviewed instructions. Clinical Quality Measures Falls Risk Screening/Assistive Devices Have you fallen in the past year?: No 11/03/24 1036 d DO> Date _ Moy Friend DO Cosigner Signature: Date (if applicable) CC: ~ [facility]07-21-2025 Procedure note [facility] Speech Pathology [address] [facility] [place] [place] [address] Modified Barium Swallow Study MR#: [id number] Acct: [id number] Name: SANDIE ANGELES DAWSON Rep #:[id number] : 1945 79 From: Mandie Welch, [facility]TUBE MOUNTER Modified Barium Swallow Patient Information Study Date: [...] in the lower esophagus w/ retrograde flow. [place] Thick Liquid via small single sip: cup: [...] Status Active ST Patient: Active Contact Information [facility] Speech Therapy:: Mandie Pham M.A. CCC-TUBE MOUNTER? Speech-Language Pathologist?? [facility] [address] [place] [address]? [email or web address]?? [phone] 08/29/24 1418 JAKE Gaston-TUBE MOUNTER> Date/Time ELVIN Daniel M.A.TUBE MOUNTER Co-Signature Required for all Medicare patients Date/Time Co-Signature CC: ~ [facility]05-20-2025 Evaluation note* Diagnosis Onset Date Resolution Status Admit Date Dysphagia acute June 28, 2024 12:57pm Polyneuropathy chronic June 28, 2024 12:57pm Post herpetic neuralgia chronic Megan jama 2024 12:57pm 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 102024 12:57pm Cerebrovascular disease inactive M ay 2024 12:57pm Impacted cerumen, right ear acute June 28, 2024 2:00pm [facility] Work Phone: 1(359) 721-958405-20-2025 Evaluation note* Diagnosis Onset Date Resolution Status Admit Date Dysphagia acute June 28, 2024 12:57pm Polyneuropathy chronic June 28, 2024 12:57pm Post herpetic neuralgia chronic M ay 2024 12:57pm 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 102024 12:57pm Cerebrovascular disease inactive M 2024 12:57pm Impacted cerumen, right ear acute June 28, 2024 2:00pm Iron deficiency anemia chronic Se pt2024 8:20am [facility] Work Phone: 1(871) 543-887805-20-2025 Evaluation note* Diagnosis Onset Date Resolution Status Admit Date Dysphagia acute June 28, 2024 12:57pm Polyneuropathy chronic June 28, 2024 12:57pm Post herpetic neuralgia chronic M ay 2024 12:57pm 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 102024 12:57pm Cerebrovascular disease inactive [facility] 2024 12:57pm Impacted cerumen, right ear acute June 28, 2024 2:00pm Iron deficiency anemia chronic Se pt2024 8:20am Anemia acute October 11:57am Dysphagia acute October 11:57am [facility] Work Phone: 1(977) 166-732402-11-2025 Evaluation note* Diagnosis Onset Date Resolution Status Admit Date Cerebrovascular disease chronic F ebruary 2024 12:49pm Polyneuropathy chronic March 122024 12:49pm Post herpetic neuralgia chronic F ebruary 2024 12:49pm Post-polio syndrome chronic Febru mitch 2024 12:49pm [facility] Work Phone: 1(129) 181-726802-11-2025 Evaluation note* Diagnosis Onset Date Resolution Status Admit Date Cerebrovascular disease chronic F ebruary 2024 12:49pm Polyneuropathy chronic March 122024 12:49pm Post herpetic neuralgia chronic F ebruary 2024 12:49pm Post-polio syndrome chronic Febru mitch 2024 12:49pm Carotid artery stenosis acute M arch 2024 12:59pm Peripheral arterial disease acute April 19, 2024 12:59pm [facility] Work Phone: 1(855) 239-435102-11-2025 Evaluation note* Diagnosis Onset Date Resolution Status Admit Date Cerebrovascular disease chronic F ebruary 2024 12:49pm Polyneuropathy chronic March 122024 12:49pm Post herpetic neuralgia chronic F ebruary 2024 12:49pm Post-polio syndrome chronic Febru mitch2024 12:49pm Carotid artery stenosis acute M arch 2024 12:59pm Peripheral arterial disease acute April 19, 2024 12:59pm Dysphagia acute June 28, 2024 12:57pm 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 102024 12:57pm [facility] Work Phone: 1(396) 194-833611-25-2024 [facility] Medical Records Department [address] [place] [address] History Physical Exam 01/04/24 0740 MR#: [id number] Acct: [id number] Name: SANDIE ANGELES DAWSON Rep #: [id number] : 1945 78 From: Moy Friend DO PCP: Dr. Desiree Tapia MD Status:[facility] Location: [place] [address] History and Physical Date of Admission: 01/04/24 Chief Complaint: dysphagia, anemia Details: SANDIE ANGELES, is a 78 F who presents to the office today for establishment with [facility]. Pt has a PMHx of chronic renal [...] most recent episode of while eating a anguillan fernandez. She is not too concerned about [...] Appearance: average body habitus and well nourished [facility] Head: normal to inspection Ears: hearing grossly [...] CC: Dr. Desiree Tapia MD; Moy Ramos, [facility] Procedure noteWCleveland Clinic Avon HospitalConsult note Author Stanislav Altamirano [facility] Note Date/Time October 25, 2024 1:53pm [facility] Medical Records Department [address] [place] [address] Anesthesia Postop Eval I 10/25/24 135 MR#: [id number] Acct: [id number] Name: SANDIE ANGELES DAWSON Rep #:[id number] : 1945 79 From: Stanislav Altamirano PCP: Dr. Desiree Tapia MD Status:REG [facility] Y Race: C Location: [place] [address] Anesthesia: Postop Eval I Current Vital Signs [...] document: Postop Eval 1 completed: Yes 10/25/24 9463 <Electronically signed by Stanislav Altamirano > Date _ Stanislav Chauhan Signature: Date CC: ~ Signed [facility] Work Phone: Evaluation note* Diagnosis Onset Date Resolution Status Ataxia acute Disequilibrium acute Weakness acute [facility] Work Phone: Evaluation note* Diagnosis Onset Date Resolution Status Ataxia acute 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 Diabetes mellitus acute Disequilibrium acute Rosacea acute Weakness acute [facility] Work Phone: Evaluation noteNo assessment information available [facility] Work Phone: Evaluation note* Diagnosis Onset Date Resolution Status Absent pedal pulses acute Bilateral ankle pain acute Bilateral carotid bruits acu te Bilateral foot pain acute Cerebrovascular disease director strategic account management patricia Polyneuropathy chronic Post-polio syndrome chronic [facility] Work Phone: Evaluation note* Diagnosis Onset Date Resolution Status Absent pedal pulses acute Bilateral ankle pain acute Bilateral carotid bruits acu te Bilateral foot pain acute Cerebrovascular disease director strategic account management patricia Polyneuropathy chronic Post-polio syndrome chronic Carotid artery stenosis acut e Peripheral arterial disease acute [facility] Work Phone: Evaluation note* Diagnosis Onset Date Resolution Status Hypersomnia acute Cerebrovascular disease director strategic account management patricia Polyneuropathy chronic Post herpetic neuralgia director strategic account management patricia [facility] Work Phone: Hospital Discharge instructionsWCleveland Clinic Avon Hospital Work Phone: Progress note Author Moy Ramos [facility] Note Date/Time November 03, 2024 10:36am [facility] [address] [address] OFFICE VISIT Date of Service: 11/03/24 MR#: [id number] Acct: [id number] Patient: BRIDGETTESANDIE Rep #: [id number] : 1945 Provider: Moy Ramos DO Age/Sex: 79/F Location: [facility] Status: Signed Intake Vital Signs 10/25/24 12:27 Height 5 ft 1 in Intake Visit Reasons: Cap Endo Chief Complaint: Anemia Allergies Sulfa (Sulfonamide Antibiotics) Allergy (Unknown, Verified 10/25/24 12:26) Hives adhesive tape Adverse Reaction (Intermediate, Verified 10/25/24 12:26) Rash latex Adverse Reaction (Verified 10/25/24 12:26) skin reaction Have you fallen in the past year?: No Office Procedures Procedure Administration Route: PO Administration Location: [facility] Dispensed Units: 1 Capsule Lot Number: [id number] Expiration Date: 08/18/25 Capsule ID Number: [id number] Consent Form Signed: Yes Comments: Tolerated well. Reviewed instructions. Clinical Quality Measures Falls Risk Screening/Assistive Devices Have you fallen in the past year?: No 11/03/24 1036 <Electronically signed by Moy brown DO> Date _ Moy Pablo Signature: Date (if applicable) CC: ~ [facility] Work Phone: Reason for referral (narrative)No reason for referral information availableWCleveland Clinic Avon Hospital Work Phone: Summary Purpose Family History [...] Yes September 09, 2021 11:37am Power of Dental Ceramist Helper Yes September 09 11:37am Name of Medical Power of Dental Ceramist Helper VANDANA ANGELES September 09, 2021 11:37am Advance Directive Response Recorded Date/ Time Name of Medical Power of Dental Ceramist Helper Vandana Angeles September 09, 2021 2:25pm Living Will Yes September 09, 2021 2:25pm Power of Dental Ceramist Helper Yes September 09 2:25pm Advance Directive Response Recorded Date/ Time Living Will Yes September 09, 2021 1:25pm Power of Dental Ceramist Helper Yes September 09 1:25pm Advance Directive Response Recorded Date/ Time Living Will Yes September 09, 2021 2:25pm Power of Dental Ceramist Helper Yes September 09 2:25pm Advance Directive Response Recorded Date/ Time Living Will Yes September 09, 2021 1:25pm Power of Dental Ceramist Helper Yes September 09 1:25pm Living Will Yes December 30, 024 10:03am Power of Dental Ceramist Helper Yes December 31, 2023 10:03am Name of Medical Power of Dental Ceramist Helper VANDANA December 31, 2023 10:03am Advance Directive Response Recorded Date/ Time Living Will Yes September 09, 2021 2:25pm Do you have a Healthcare Power of Dental Ceramist Helper? Yes September 09, 2021 2:25pm Living Will Yes December 30, 024 11:03am Do you have a Healthcare Power of Dental Ceramist Helper? Yes December 31, 2023 11:03am Name of Medical Power of Dental Ceramist Helper VANDANA December 31, 2023 11:03am Advance Directive Response Recorded Date/ Time Living Will Yes September 09, 2021 2:25pm Do you have a Healthcare Power of Dental Ceramist Helper? Yes September 09, 2021 2:25pm Advance Directive Response Recorded Date/ Time Do you have a Healthcare Power of Dental Ceramist Helper? Yes October 21, 2024 11:31am Advance Directive Response Recorded Date/ Time Do you have a Healthcare Power of Dental Ceramist Helper? Yes October 21, 2024 10:31am Do you have a Healthcare Power of Dental Ceramist Helper? No December 11, 2024 4:45pm Chief Complaint [...] content) DATE CREATED AUTHOR 10/20/2017 Alvino Clarkeaudrey [facility] DATE CREATED AUTHOR AUTHOR'S ORGANIZ ATION 01/18/[address] [facility] ([place]) DATE CREATED AUTHOR AUTHOR'S ORGANIZ ATION 12/21/2024 [facility] Goals (unrecognized section and content) Goals may [...] Inactive Member Role Status Dates Dr. Desiree Tpaia MD Primary Care Provider Active Start: April [...] Inactive Member Role Status Dates Dr. Desiree Taipa MD Primary Care Provider Active Start: June [...] BE BASED ON THE PRIMARY CLINICAL RECORDS. [employer] provides no warranty or guarantee of the accuracy or completeness of information in this document.
--- NOTE | 2025-02-03 18:30 | RAD_ITS ---
PROCEDURE: CHEST 1 VIEW (PORTABLE) 02/03/2025 REASON FOR EXAM: CHEST PAIN TECHNIQUE: Frontal view of the chest. COMPARISON: 09/09/2021 FINDINGS: Hardware: None. Heart: The heart size is normal. Lungs: The lungs are clear. No pneumothorax or pleural effusion. Bones: The bones are unremarkable. RAD/Chest 1 View (Portable) IMPRESSION: No Acute Findings. Reading [facility]
[2025-02-03 18:35] LABS: Anion Gap 7 (7-18); BUN 18 mg/dL (4-19); BUN/Creat Ratio 12.3 RATIO (10-20); Calcium,Total 8.8 mg/dL (7.6-11.0); Carbon Dioxide 23.4 mmol/L (20.0-29.0); Chloride 107 mmol/L (96-106); Estimated Creatinine Clearance 25.88 ml/min (50-250); Glucose 295 mg/dL (70-99); Hematocrit 26.1 % (37-47); Hemoglobin 8.1 g/dL (12.0-15.0); Immature Granulocytes Count 0.010 X10^3/uL (0.0-0.0); Mean Corp Hgb Conc 31.0 g/dL (32-36); Mean Corpuscular Volume 84.5 fL (81-99); Mean Platelet Vol. 10.9 fl (6.2-12.0); NRBC Flagged by Analyzer 0 % (0-5); POSITIVE DIFFERENTIAL YES; Platelet Count 162 K/mm3 (150-450); Potassium 5.0 mmol/L (3.5-5.1); RBC Distribution Width CV 18.3 % (11.6-14.6); RBC Distribution Width SD 55.9 fl (35.1-43.9); Red Blood Count 3.09 M/mm3 (4.2-5.4); Troponin T High Sensitivity 29 ng/L (<=14); White Blood Count 3.2 K/mm3 (4.4-11.0)
[2025-02-03 20:29] LABS: Troponin T High Sens 2 HR 25 ng/L (<=14)
--- NOTE | 2025-02-03 21:30 | EX.ED.DYSGE1 ---
HPI History of Present Illness Chief Complaint: Chest Pain Detail of Chief Complaint: Anterior chest burning with radiation to the axilla and left upper extremit Informant: patient Onset/Context/Timing Onset: Today Context: Sudden Onset Timing: Continuous Quality: Coronary Location: Anterior chest Current Severity: Moderate Maximum Severity: Severe Worsened by: Nothing Relieved by: Nothing Associated Symptoms Associated Symptoms: None Narrative Narrative: Patient is a 79-year-old woman. She has history of cirrhosis, osteoporosis, anemia, hypersomnia, lymphedema, peripheral arterial disease, diabetic retinopathy who presents with burning sensation in her chest. She became concerned because it radiated to the left axilla and left arm. She denies fever, chills night sweats. She denies headache, visual, ocular auditory symptoms. She denies neck pain or back pain. She denies cough, shortness of breath, dyspnea on exertion, orthopnea or PND. She does have history of GERD. She states this is different than her GERD. She denies black or maroon-colored stool. Prior similar symptoms: No Recent Illness/Hospitalization: No PFSH PFSH Medical History Cirrhosis Ascites Liver disease Thyroid disease Post-menopausal Insulin dependent diabetes mellitus Ambulates with cane Low iron Anemia Skin tear Migraine headache DDD (degenerative disc disease), cervical Lightheadedness Dietary restriction Difficulty swallowing History of hiatal hernia History of GI bleed Non-smoker Shortness of breath on exertion Leg cramps History of pain when walking History of edema Cardiology follow-up encounter Heart murmur History of Holter monitoring Wears glasses Thyroid disease History of echocardiogram Walker as ambulation aid Pancytopenia Thalamic infarct, acute Diabetic retinopathy Stroke Shingles Neuropathy High cholesterol Arthritis GERD (gastroesophageal reflux disease) Rosacea Post-polio syndrome History of poliomyelitis HTN (hypertension) Home Medications ?Medication ?Instructions ?Recorded ?Last Taken ?Type atorvastatin 40 mg tablet 40 mg PO QHS #30 tabs 09/10/21 Unknown Rx losartan 100 mg tablet 100 mg PO DAILY 05/07/22 01/15/25 History Held on 01/21/25. Instructions: Order Changed miscellaneous medical supply #2 ea 07/17/22 Unknown Rx ketoconazole 2 % shampoo 1 applic topical 3XW PRN PER 08/05/23 Unknown History metformin 500 mg tablet 500 mg PO BID diabetes 08/05/23 01/15/25 History Held on 01/21/25. Instructions: Home Medication placed on hold at Doctor's office insulin glargine 100 unit/mL (3 16 unit subcut BID dm 04/19/24 01/14/25 History mL) subcutaneous pen (Lantus Solostar U-100 Insulin) aspirin 81 mg tablet,delayed 81 mg PO QODAY 10/21/24 01/10/25 History release (Adult Low Dose Aspirin) gabapentin 100 mg capsule 100 mg PO QODAY #45 caps 11/29/24 Unknown Rx carvedilol 6.25 mg tablet 6.25 mg PO BID #60 tabs 12/15/24 01/15/25 10:30 Rx furosemide 40 mg tablet (Lasix) 40 mg PO QAM #30 tabs 12/15/24 01/15/25 Rx Held on 01/21/25. Instructions: Order Changed spironolactone 25 mg tablet 25 mg PO QDAY #30 tabs 12/15/24 Unknown Rx Held on 01/21/25. Instructions: Order Changed omeprazole 40 mg capsule,delayed 40 mg PO DAILY 01/13/25 01/15/25 History release vancomycin 125 mg capsule 125 mg PO DIRECTED #56 caps 01/16/25 Unknown Rx famotidine 20 mg tablet 20 mg PO BID #60 TABLETS 02/03/25 Unknown Rx levothyroxine 100 mcg capsule 100 mcg PO DAILY #30 caps 02/03/25 Unknown Rx Allergy/AdvReac Type Severity Reaction Status Date / Time Sulfa (Sulfonamide Allergy Unknown Hives Verified 02/03/25 17:46 Antibiotics) adhesive tape AdvReac Intermediate Rash Verified 02/03/25 17:46 latex AdvReac skin Verified 02/03/25 17:46 reaction Family History Father Diabetes Hypertension High cholesterol Angina at rest Heart disease Kidney disease Mother Bowel disease Grandmother CVA (cerebral vascular accident) Aunt CVA (cerebral vascular accident) Surgical History History of esophagogastroduodenoscopy (EGD) Hx of colonoscopy Hx of right cataract extraction Hx of left cataract extraction Hx of lithotripsy Social History household members: spouse current occupational status: retired Smoking Status: Never smoker second hand exposure: No alcohol intake: never substance use type: does not use caffeine: Yes Type: coffee Number of servings: 1 what type of physical activity do you participate in: other frequency: 1-2 times per week elijah/yazdanism: Rastafarian seatbelt use: always ROS ROS ED Constitutional Constitutional ED: Denies chills, fever(s), subjective, sweats or weight loss Eyes Eyes: Denies blurry vision or change in vision ENT ENT ED: Denies rhinorrhea or sore throat Cardiovascular Cardiovascular: Reports chest pain; Denies orthopnea, palpitations, paroxysmal nocturnal dyspnea or racing heartbeat Respiratory/Chest Respiratory/Chest: Denies cough, dyspnea, dyspnea on exertion, orthopnea or paroxysmal nocturnal dyspnea Gastrointestinal Gastrointestinal: Reports abdominal pain; Denies constipation, diarrhea, melena, nausea or vomiting Genitourinary Genitourinary ED: Denies dysuria or hematuria Musculoskeletal Musculoskeletal: Denies arthralgias, back pain or myalgias Integumentary Denies rash Neurologic Neurologic: Denies headache(s) or paresthesias Endocrine Endocrinology: Denies cold intolerance or heat intolerance Hematologic/Lymphatic Hematologic/Lymphatic: Reports systems reviewed and no addt'l complaints, except as documented EXAM Physical Exam Const Vital Signs: 02/03/25 17:44 02/03/25 18:15 02/03/25 18:15 Temperature 97.6 F L Temperature Source Temporal Pulse Rate 63 Respiratory Rate 26 H Respiratory Effort Normal Blood Pressure 191/53 H Blood Pressure Mean 99 Pulse Ox 100 100 Oxygen Delivery Method Room Air Room Air 02/03/25 18:20 02/03/25 18:30 02/03/25 18:45 Temperature Temperature Source Pulse Rate 67 67 60 Respiratory Rate 12 16 15 Respiratory Effort Blood Pressure 136/69 H 155/55 H Blood Pressure Mean 82 84 Pulse Ox 98 100 99 Oxygen Delivery Method 02/03/25 19:00 02/03/25 19:15 02/03/25 19:30 Temperature Temperature Source Pulse Rate 63 60 57 L Respiratory Rate 16 13 16 Respiratory Effort Blood Pressure 164/51 H 158/56 H 169/53 H Blood Pressure Mean 82 84 87 Pulse Ox 98 98 98 Oxygen Delivery Method 02/03/25 19:45 02/03/25 20:00 12/26/25 20:15 Temperature Temperature Source Pulse Rate 59 L 62 60 Respiratory Rate 18 14 14 Respiratory Effort Blood Pressure 161/54 H 154/56 H 158/53 H Blood Pressure Mean 84 83 83 Pulse Ox 96 97 100 Oxygen Delivery Method 02/03/25 20:30 02/03/25 21:00 Temperature Temperature Source Pulse Rate 60 58 L Respiratory Rate 15 Respiratory Effort Blood Pressure 165/52 H 166/51 H Blood Pressure Mean 84 89 Pulse Ox 99 98 Oxygen Delivery Method Room Air Vital signs are remarkable for a elevated blood pressure. Positive well nourished and well developed General Appearance ED: well developed and NAD; Negative for cyanotic, diaphoretic or pallor HEENT Reports moist mucous membranes Eyes PERRL and EOMs intact bilaterally General Eye ED: Negative for pale conjunctiva or scleral icterus Neck no lymphadenopathy, supple and no JVD Chest Wall inspection of chest normal and palpation of chest normal Resp normal respiratory effort and clear to auscultation bilaterally Cardio regular rate, regular rhythm, S1 normal heart sound, S2 normal heart sound and no murmurs GI normal to inspection, nondistended, normoactive bowel sounds, non-tender, non-distended and no masses; Negative for hepatosplenomegaly Back/Spine no CVA tenderness Extremity Negative for normal to inspection Extremity Narrative: Nonpitting edema General Extremety ED: Yes edema General Extremity: edema Neuro oriented x3 and CN's II-XII intact bilaterally Neuro Narrative: Patient has a delayed relaxation phase of her ankle reflex consistent with hypothyroidism. Patient informed that she was told her thyroid levels are abnormal. Her TSH is 63.7. Sensorium / Orientation: alert Skin no rashes or lesions noted, no wounds and skin turgor normal General Skin Exam: elasticity normal; Negative for jaundice or pallor MDM MDM MDM Narrative Medical decision making narrative: Need to evaluate for cardiac versus noncardiac. Suspect noncardiac. Will obtain EKG, troponin, CBC to assess H&H, electrolyte panel and x-ray. Patient has history of pancytopenia. This is probably due to her liver disease. History & Record Review Additional record(s) reviewed:: Prior outpatient record, Prior ED visit and No prior records Lab Data Attestation: I reviewed the patient's lab results. Lab results narrative: Patient has pancytopenia. Creatinine slight elevated 1.46. Patient was instructed not to take ibuprofen or Aleve for her pain. She was told she can have acetaminophen. She was informed if she continues taking NSAIDs this may cause more injury to her kidneys. First troponin is 29. Second is 25 with a delta of -4. Labs: Laboratory Results - last 24 hr 02/03/25 02/03/25 18:05 20:03 WBC 3.2 L RBC 3.09 L Hgb 8.1 L Hct 26.1 L MCV 84.5 MCH 26.2 L MCHC 31.0 L RDW Std Deviation 55.9 H RDW Coeff of Lilian 18.3 H Plt Count 162 MPV 10.9 Immature Gran % (Auto) 0.300 Neut % (Auto) 72.8 H Lymph % (Auto) 15.3 L [place] % (Auto) 7.5 Eos % (Auto) 2.8 Baso % (Auto) 1.3 H Absolute Neuts (auto) 2.3 Absolute Lymphs (auto) 0.49 L Nucleated RBC % 0 Sodium 137 Potassium 5.0 Chloride 107 H Carbon Dioxide 23.4 Anion Gap 7 BUN 18 Creatinine 1.46 H Estim Creat Clear Calc 25.88 L Est GFR (MDRD) Non-Af 36 L BUN/Creatinine Ratio 12.3 Glucose 295 H Calcium 8.8 Troponin T High Sens 29 H Troponin T Hi Sens 2 Hr 25 H Radiography Chest X-Ray - ED: 2 View and Read by ED Physician (Cardiac silhouette normal. Heart size is upper end of normal. No infiltrate, effusion or cephalization. Osseous structures reveal some degenerative changes and question of osteopenia.) Diagnostic Testing: Clinical Impression(s) from Imaging Studies Chest X-Ray 02/03/25 18:30 IMPRESSION: No Acute Findings. Reading Location: [facility] EKG Initial EKG: Attestation: I personally reviewed and interpreted this EKG as follows: Interpretation: Sinus Rhythm (Rate is 62. She has a left bundle branch block with a left axis. MI interval is 202 ms per cures duration under 34 ms. QT duration 478 ms.) Differential Diagnosis Chest pain/SOB: ACS ACS: Positive for no evidence of ACS based on cardiac biomarkers, EKG without ischemia and history not suggestive of ischemia pain, pneumothorax Reason(s) pneumothorax less likely: Positive for bilateral breath sounds and [employer] withhout PTX, pneumonia Reason(s) pneumonia less likely: Positive for no infiltrate on CXR, no elevation in WBC count, no noted fever and symptoms not consistent with acute infection, aortic dissection Reason(s) Aortic dissection less likely:: Positive for normal vascular exam, normal neurological exam, no significant risk factors for dissection, no widened mediastinum on CXR, pain not sudden onset, no ripping/tearing pain, no pain to back and blood pressure appropriate in ED and CHF Reason(s) CHF less likely: Positive for no significant peripheral edema, no orthopnea and no evidence of fluid overload on CXR Treatment and Re-Evaluation :: Patient was started on levothyroxine and referred to Dr. Liam Gomez for endocrinology. She was placed on H2 ish for her heartburn. Suspect that this is either due to reflux or peptic ulcer disease. Discharge Plan Triage Chief Complaint: Chest Pain ED Provider: Zion Colindres Dx/Rx/DC Orders Clinical Impression: Heartburn, History of gastroesophageal reflux (GERD), Hypothyroidism, Hypersomnia, Carotid artery stenosis, Pancytopenia, Cirrhosis, Dysphagia, Iron deficiency anemia Instructions: ED Gastritis (Adult), ED Hypothyroidism Prescriptions: New famotidine 20 mg tablet 20 mg PO BID Qty: 60 0RF levothyroxine 100 mcg capsule 100 mcg PO DAILY Qty: 30 0RF No Action losartan 100 mg tablet 100 mg PO DAILY aspirin [Adult Low Dose Aspirin] 81 mg tablet,delayed release (DR/EC) 81 mg PO QODAY ketoconazole 2 % shampoo 1 applic topical 3XW PRN (Reason: PER DR) gabapentin 100 mg capsule 100 mg PO QODAY Qty: 45 1RF furosemide [Lasix] 40 mg tablet 40 mg PO QAM Qty: 30 2RF carvedilol 6.25 mg tablet 6.25 mg PO BID Qty: 60 2RF Rx Instructions: must administer with a meal/food spironolactone 25 mg tablet 25 mg PO QDAY Qty: 30 3RF metformin 500 mg tablet 500 mg PO BID atorvastatin 40 mg Tablet 40 mg PO QHS Qty: 30 0RF insulin glargine [Lantus Solostar U-100 Insulin] 100 unit/mL (3 mL) insulin pen 16 unit subcut BID omeprazole 40 mg capsule,delayed release(DR/EC) 40 mg PO DAILY (DME) miscellaneous medical supply Misc See Rx Instructions .Route Qty: 2 1RF Rx Instructions: 15-20mmHg knee-high measured compression stockings to be worn as directed; open or closed toe per patient preference vancomycin 125 mg capsule 125 mg PO DIRECTED Qty: 56 0RF Rx Instructions: take 125 mg 4 times per day for 14 days Primary Care Provider: Desiree Tapia Referrals: Desiree Tapia MD [Primary Care Provider, Family Practice] - 10-14 Days if not better Liam Gomez MD [Med Staff - Courtesy Staff, Endocrinology] - 1-2 Weeks Print Language: Upper Sorbian Disposition Disposition: Home, Self Care
== END 2025-02-03 21:58 | disposition home or self-care (01) ==
PROVIDERS: Emergency Provider Emergency Medicine; PCP Family Medicine; Visit Provider Emergency Medicine
DX: R07.9 Chest pain, unspecified (principal); D61.818 Other pancytopenia; K74.60 Unspecified cirrhosis of liver; Z79.4 Long term (current) use of insulin; E11.9 Type 2 diabetes mellitus without complications; R12 Heartburn; E78.00 Pure hypercholesterolemia, unspecified; I10 Essential (primary) hypertension; Z86.73 Personal history of transient ischemic attack (TIA), and cerebral infarction without residual deficits; Z79.899 Other long term (current) drug therapy; Z79.84 Long term (current) use of oral hypoglycemic drugs; K21.9 Gastro-esophageal reflux disease without esophagitis; Z98.41 Cataract extraction status, right eye; Z98.42 Cataract extraction status, left eye; E03.9 Hypothyroidism, unspecified; G47.10 Hypersomnia, unspecified; I65.29 Occlusion and stenosis of unspecified carotid artery; R13.10 Dysphagia, unspecified; D50.9 Iron deficiency anemia, unspecified
CPT/HCPCS: 71045; 80048; 84484; 85025; 93005; 96374; 99284; A4216